=== PATIENT | male | born 1980 | race Caucasian/White ===

== ENCOUNTER 2017-10-25 20:31 | Emergency (ER) | payer MEDICAID, SELFPAY ==
[2017-10-25 20:31] VITALS: BP 151/101; PULSE 70; RESP 15; TEMP 36.4; BMI 43.6
--- NOTE | 2017-10-25 22:30 | ED.VISSUMM ---
- ER Visit Summary Date of Service: 10/25/17 Chief Complaint: [] Left upper extremity contusion History of Present Illness: The patient is a 36 M [] planing of bruising/hematoma/contusion to the left upper extremity. Patient reports mild discomfort to the left proximal forearm. Denies bony tenderness. He is unaware of how he potentially injured his upper extremity. He reports he is here because his family encouraged him to come for evaluation. Past medical history of schizophrenia and diabetes. Physical Examination: [] Left proximal lateral forearm contusion/hematoma. No significant tenderness on palpation. No bony tenderness to the left upper extremity. Neurovascularly intact distally. Test Results: [] None. Emergency Department Course and Treatment: [] Patient given prescription for ibuprofen and given a single dose of ibuprofen in the emergency department. No diagnostic imaging was warranted for this very benign presentation. Treatment Plan: [] Follow-up with PCP. Disposition: [] Discharge, stable. Impression: [] Left upper extremity contusion This note was generated with [employer] dictation software. It may contain incorrect words, spelling, and punctuation that were not noted in review of the chart prior to signing ED Disposition - Plan for ED Patient: Chief Complaint: Upper Extremity Injury Referrals: Miri Martin MD [Primary Care Provider] -
--- NOTE | 2017-10-25 22:32 | ED.DEP ---
ED Disposition - Plan for ED Patient: Disposition: Home or Assisted Living Chief Complaint: Upper Extremity Injury Instructions: ED Contusion Upper Ext Prescriptions: Ibuprofen 800 mg PO TID #20 tab Referrals: Miri Martin MD [Primary Care Provider] -
[2017-10-25 22:40] VITALS: BP 145/80; PULSE 75; RESP 14; O2SAT 99
[2017-10-25] MEDS: Ibuprofen 400 MG Tablet 800 MG PO (22:45)
== END 2017-10-25 22:46 | disposition home or self-care (01) ==
PROVIDERS: Emergency Provider Emergency Medicine; Family Provider Family Medicine; PCP Family Medicine
DX: S50.12XA Contusion of left forearm, initial encounter (principal); X58.XXXA Exposure to other specified factors, initial encounter; Y93.9 Activity, unspecified; Y92.9 Unspecified place or not applicable; E66.9 Obesity, unspecified; E11.9 Type 2 diabetes mellitus without complications; I10 Essential (primary) hypertension; F20.9 Schizophrenia, unspecified; Z90.49 Acquired absence of other specified parts of digestive tract; Z79.84 Long term (current) use of oral hypoglycemic drugs; Z79.899 Other long term (current) drug therapy
CPT/HCPCS: 99282

== ENCOUNTER 2021-01-31 09:28 | Observation (INO) | payer MEDICAID, SELFPAY ==
[2021-01-31] VITALS (17 sets, daily range): BP systolic 151–191; BP diastolic 92–117; PULSE 64–86; RESP 17–18; TEMP 36.4–36.8; O2SAT 94–97; BMI 38.5; BMI 37.9
--- NOTE | 2021-01-31 09:41 | RAD_ITS ---
STUDY: X-RAY CHEST REASON FOR EXAM: Male, 40 years old. Chest pain TECHNIQUE: Single AP portable view of the chest. COMPARISON: Comparison is made with prior study dated 10/15/2015. FINDINGS: EKG electrodes are seen. The lungs are clear and expanded. There is no demonstrated pleural abnormality. Normal size heart. Normal mediastinum and karlos. Normal visualized pulmonary arteries. Normal visualized aortic arch and descending thoracic aorta. Normal visualized thoracic spine. Normal visualized ribs, clavicles, and shoulders. There is no demonstrated abnormality of the visualized soft tissue structures of the upper abdomen. RAD/Chest 1 View (Portable) IMPRESSION: Normal x-ray examination of the chest. Electronically Signed: Christian Martinez MD at 10:34 EDT , Service support ,
--- NOTE | 2021-01-31 09:41 | EKG12_ITS ---
Test Reason : CP Blood Pressure : / mmHG Vent. Rate : 069 BPM Atrial Rate : 069 BPM P-R Int : 172 ms QRS Dur : 082 ms QT Int : 402 ms P-R-T Axes : 042 -09 047 degrees QTc Int : 430 ms Normal sinus rhythm Normal ECG Confirmed by HELENA LUNA, KATIANA ([id number]), avid editor GAURAV LAZAR ([id number]) on 02/05/2021 2:16:27 PM Referred By: DARLIN Confirmed By:KATIANA MALIK MD
--- NOTE | 2021-01-31 09:42 | EDS_ITS ---
HPI History of Present Illness Chief Complaint: Chest Pain Informant: patient Onset/Context/Timing Onset: Days (4) Activity at onset: gradual Timing: Waxes and wanes Quality: Positive for Sharp (and nonpleuritic, nonradiating) Location: Substernal Current Severity: Moderate Maximum Severity: Moderate Worsened By: Eating; Not Worsened By Exertion, Movement of Arm, Movement of Torso, Palpation, Breathing and Coughing Relieved By: - (getting up and around and doing things; hasn't tried any medications) Associated Symptoms: Negative for Nausea, Vomiting, Diaphoresis, Dyspnea, Cough, Fever, Lightheadedness and Palpitations Narrative Narrative: 40-year-old with a history of hypertension for which he takes his medication as prescribed presenting with chest discomfort for the past 4 days. He states it has gone away at one point, yesterday, but for the most part it has been present. He woke up with it fairly severe this morning and it has been present ever since, for several hours. he is having a hard time finishing a meal, No other associated symptoms except he states when asked details about this he states that mcc through a meal the discomfort gets worse and he develops a poor appetite and stops. CVD Risk Factors: Positive for Hypertension and Family History 1' </=55 (Brother in 40s unknown exactly but he thinks heart related); Negative for Diabetes, Hypercholesterolemia and Smoking PE Risk Factors: Negative for Recent Travel/Surgery, Recent Immobilization, Prior DVT or PE, Cancer and OCP + Smoking + >/=35 PFSH PFSH Medical History Hypertension Home Medications lisinopril-hydrochlorothiazide [Zestoretic] 1 tab PO BID 10/24/16 [History Last Taken 03/14/17 09:00] metformin 1,000 mg PO BID #60 tab 03/15/17 [Rx Last Taken Unknown] ibuprofen 800 mg PO TID #20 tab 10/25/17 [Rx Last Taken Unknown] Allergy/AdvReac Type Severity Reaction Status Date / Time No Known Allergies Allergy Verified 01/31/21 09:29 Family History (Updated 01/31/21 @ 09:[address] Joey Encarnacion MD) Brother CAD (coronary artery disease) Surgical History History of cholecystectomy Social History Smoking Status: Never smoker ROS ROS ED Constitutional Constitutional ED: Denies chills or fever(s) Eyes Eyes: Denies change in vision or diplopia ENT ENT ED: Denies rhinorrhea or sore throat Cardiovascular Cardiovascular: Reports chest pain; Denies palpitations Respiratory/Chest Respiratory/Chest: Denies cough or dyspnea Gastrointestinal Gastrointestinal: Denies abdominal pain, diarrhea, nausea or vomiting Genitourinary Genitourinary ED: Denies dysuria or hematuria Musculoskeletal Musculoskeletal: Denies back pain or neck pain Integumentary Denies abscess or rash Neurologic Neurologic: Denies headache(s), paresthesias or weakness Psychiatric Psychiatric: Denies anxiety or suicidal thoughts EXAM Physical Exam Const Vital Signs: 01/31/21 09:29 01/31/21 09:42 Temperature 98.2 F Temperature Source Temporal Pulse Rate 67 Respiratory Rate 18 Respiratory Effort Normal Blood Pressure 191/110 H Blood Pressure Mean 137 Pulse Ox 97 97 Oxygen Delivery Method Room Air Room Air Positive well nourished, well developed and obese General Appearance ED: well developed and NAD Nutritional Appearance: obese HEENT Reports moist mucous membranes normocephalic and atraumatic Eyes PERRL and EOMs intact bilaterally Neck full ROM and supple Resp normal respiratory effort and clear to auscultation bilaterally Cardio regular rate, regular rhythm and no murmurs GI non-distended Auscultation: normoactive bowel sounds Palpation: soft and tender epigastric (Mild. No other areas of tenderness.) Back/Spine no CVA tenderness General Back: other FROM Extremity normal to inspection General Extremety ED: Negative for edema, pulses abnormal or tenderness General Extremity: Negative for edema or pulses abnormal Neuro oriented x3, CN's II-XII intact bilaterally and no sensory deficits noted Sensorium / Orientation: awake and alert Motor Exam: strength 5/5 throughout Psych mental status grossly normal Mood & Affect: anxious Skin no rashes or lesions noted and no wounds MDM MDM MDM Narrative Medical decision making narrative: This discomfort seems more GI in etiology so initially he was given a GI cocktail. It did not help his discomfort, which then did worsen, it was present to a significant degree when he had EKG which is normal. His blood pressure did not go down actually went up a little bit to a systolic of 201. His troponin returned nonspecifically elevated, suggesting possible cardiac etiology. This could also be related to his blood pressure being very high. He was given nitroglycerin, aspirin, and plan is for admission to PCU for further treatment and evaluation. Lab Data Attestation: I reviewed the patient's lab results. Labs: Laboratory Results - last 24 hr 01/31/21 01/31/21 09:40 09:40 WBC 9.2 RBC 5.85 Hgb 17.4 H Hct 50.1 MCV 85.6 MCH 29.7 MCHC 34.7 RDW Std Deviation 40.3 RDW Coeff of Tobias 13.1 Plt Count 267 MPV 10.8 Immature Gran % (Auto) 0.500 Neut % (Auto) 58.8 Lymph % (Auto) 27.0 [place] % (Auto) 7.7 Eos % (Auto) 5.1 H Baso % (Auto) 0.9 Absolute Neuts (auto) 5.4 Absolute Lymphs (auto) 2.48 Nucleated RBC % 0 Sodium 139 Potassium 3.2 L Chloride 103 Carbon Dioxide 30.0 Anion Gap 6 BUN 10 Creatinine 0.72 Estim Creat Clear Calc 155.67 Est GFR (MDRD) Af Amer 156 Est GFR (MDRD) Non-Af 129 BUN/Creatinine Ratio 13.9 Glucose 177 H Calcium 9.0 Troponin I 0.142 H Radiography Chest X-Ray - ED: 1 View, Read by ED Physician, No Acute Disease and No Infiltrates Diagnostic Testing: Radiology Impression Chest X-Ray 01/31/21 09:41 IMPRESSION: Normal x-ray examination of the chest. Electronically Signed: Christian Martinez MD at 10:34 EDT , Service support , EKG Initial EKG: Attestation: I personally reviewed and interpreted this EKG as follows: Interpretation: Sinus Rhythm and No Acute Injury Pattern Comments: Normal EKG Discharge Plan Triage Chief Complaint: Chest Pain ED Provider: Joey Encarnacion Dx/Rx/DC Orders Clinical Impression: Chest pain, unspecified, Hypertensive urgency Prescriptions: No Action lisinopril-hydrochlorothiazide [Zestoretic] 1 EACH tablet 1 tab PO BID RF: 0 metformin 1,000 MG tablet 1,000 mg PO BID Qty: 60 RF: 0 ibuprofen 800 MG tablet 800 mg PO TID Qty: 20 RF: 0 Primary Care Provider: Conner Rogel NP Referrals: Conner Rogel NP, CHIEF STRATEGY OFFICER-C [Primary Care Provider] - Disposition Disposition: Acute [facility]
[2021-01-31 09:51] LABS: Absolute Lymphocyte Count 2.48 X10^3/uL (0.83-4.51); Absolute Neutrophil Count 5.4 X10^3/uL (2.0-7.7); Basophil# 0.08 X10^3/uL; Basophil% 0.9 % (0-1); Eosinophil# 0.47 X10^3/uL; Eosinophils% 5.1 % (0-5); Hematocrit 50.1 % (40-54); Hemoglobin 17.4 g/dL (13.0-16.5); Lymphocyte # 2.48 X10^3/ul (0.83-4.51); Mean Corp Hgb Conc 34.7 g/dL (32-36); Mean Corpuscular Hgb 29.7 pg (27.0-32.0); Mean Corpuscular Volume 85.6 fL (80-94); Mean Platelet Vol. 10.8 fl (6.2-12.0); Monocyte# 0.71 X10^3/uL; Monocyte% 7.7 % (0-10); NRBC Flagged by Analyzer 0 % (0-5); Neutrophil # 5.39 X10^3/uL (2.7-7.7); Neutrophil % 58.8 % (47-70); Platelet Count 267 K/mm3 (150-450); RBC Distribution Width CV 13.1 % (11.6-14.6); RBC Distribution Width SD 40.3 fl (35.1-43.9); Red Blood Count 5.85 M/mm3 (4.6-6.2); White Blood Count 9.2 K/mm3 (4.4-11.0)
[2021-01-31] MEDS: Mag Hydrox/Al Hydrox/Simeth 30 ML UDC PO (09:51)
[2021-01-31 10:07] LABS: Anion Gap 6 (5-15); BUN 10 mg/dL (7-18); BUN/Creat Ratio 13.9 RATIO (10-20); Chloride 103 mmol/L (98-107); Creatinine, Serum 0.72 mg/dL (0.70-1.30); EST Glomerular Filtration Rate 129 mL/min (>60); Est Glom Filt Rate - Afr Amer 156 mL/min (>60); Estimated Creatinine Clearance 155.67 ml/min; Glucose 177 mg/dL (74-106); Potassium 3.2 mmol/L (3.5-5.1); Sodium Level 139 mmol/L (136-145)
--- NOTE | 2021-01-31 10:46 | NURSING ---
DR WEAVER FOR DR CAMPO
[2021-01-31] MEDS: Aspirin 81 MG TAB.CHEW 324 MG PO (10:51)
--- NOTE | 2021-01-31 10:52 | NURSING ---
PCU OBS NAUMAH CP, ELEVATED TROP
--- NOTE | 2021-01-31 10:53 | HP.PCM.HOS_ITS ---
[facility] - General General Date of Admission: 01/31/21 Chief Complaint: Chest pain - 4 days HPI Narrative ANASTACIO MURILLO, is a 40 M who presents chest pain ongoing for 4 days. Patient described the chest pain is substernal, squeezing, not associated with diaphores is or dizziness. He denied any previous history of heart disease. He denied any change in his medication. He denied any orthopnea or dyspnea on exertion. [facility] Medical History Diabetes Hypertension Home Medications lisinopril-hydrochlorothiazide [Zestoretic] 1 tab PO BID 10/24/16 [History Last Taken 01/31/21 09:00] metformin 1,000 mg PO BID #60 tab 03/15/17 [Rx Last Taken 01/31/21 09:00] ibuprofen 800 mg PO TID PRN 01/31/21 [History Last Taken 01/29/21 09:00] pantoprazole [Protonix] 20 mg PO DAILY 01/31/21 [History Last Taken 01/30/21 09:00] Allergy/AdvReac Type Severity Reaction Status Date / Time No Known Allergies Allergy Verified 01/31/21 09:29 Family History Brother CAD (coronary artery disease) Surgical History History of cholecystectomy Social History (Updated 02/01/21 @ 07:[address] Lizy Norton MD) household members: spouse current occupational status: disabled Smoking Status: Former smoker alcohol intake: never substance use type: does not use ROS ROS Narrative Constitutional: Denies: Anorexia, Chills, Fever, Night Sweats, Weight Change Eyes: Denies: Blurred vision, Cataracts, Conjunctivae Inflammation, Pain, Redness, Vision Change HEENT: Denies: Difficulty Hearing, Difficulty Swallowing, Head Aches, Hearing Changes, Sinus Congestion, Sinus Drainage Cardiovascular:Admits to chest Pain, Denies Orthopnea, Palpitations, leg swelling Respiratory: Denies: Cough, Shortness of breath at rest, Sputum production Gastrointestinal: Denies: Abdominal Pain, Nausea, Vomiting Genitourinary: Denies: Dysuria Musculoskeletal: Denies: Joint Pain, Joint stiffness, Joint swelling, Joint Tenderness Skin: Denies: Rash, Wounds Neurological: Denies: Numbness, Tingling, Focal weakness Vital Signs Vital Signs Vital Signs: 01/31/21 09:29 01/31/21 09:42 Temperature 98.2 F Temperature Source Temporal Pulse Rate 67 Respiratory Rate 18 Respiratory Effort Normal Blood Pressure 191/110 H Blood Pressure Mean 137 Pulse Ox 97 97 Oxygen Delivery Method Room Air Room Air Physical Exam Narrative General: Alert, Oriented x3, Cooperative, No apparent distress, Well developed HEENT: Atraumatic Oral: Moist Mucosa Neck: Supple Lungs: Clear to auscultation Cardiovascular: HS I+II, regular, no murmurs Abdomen: Bowel Sounds Present, Soft, Non Tender Extremities: No edema Skin: No rashes, No breakdown Neurological: Grossly intact Psych/Mental Status: Appropriate Lab / Micro Data Result Diagrams: 02/01/21 06:15 01/31/21 09:40 Labs: Laboratory Results - last 24 hr 01/31/21 01/31/21 09:40 09:40 WBC 9.2 RBC 5.85 Hgb 17.4 H Hct 50.1 MCV 85.6 MCH 29.7 MCHC 34.7 RDW Std Deviation 40.3 RDW Coeff of Tobias 13.1 Plt Count 267 MPV 10.8 Immature Gran % (Auto) 0.500 Neut % (Auto) 58.8 Lymph % (Auto) 27.0 Ness % (Auto) 7.7 Eos % (Auto) 5.1 H Baso % (Auto) 0.9 Absolute Neuts (auto) 5.4 Absolute Lymphs (auto) 2.48 Nucleated RBC % 0 Sodium 139 Potassium 3.2 L Chloride 103 Carbon Dioxide 30.0 Anion Gap 6 BUN 10 Creatinine 0.72 Estim Creat Clear Calc 155.67 Est GFR (MDRD) Af Amer 156 Est GFR (MDRD) Non-Af 129 BUN/Creatinine Ratio 13.9 Glucose 177 H Calcium 9.0 Troponin I 0.142 H Radiology Impression Chest X-Ray 01/31/21 09:41 IMPRESSION: Normal x-ray examination of the chest. Electronically Signed: Christian Martinez MD at 10:34 EDT , Service support , Assessment & Plan Assessment/Plan (1) Chest pain: QUALIFIERS: Chest pain type: precordial chest pain Qualified Code(s): R07.2 - Precordial pain (2) Hypertension: QUALIFIERS: Hypertension type: essential hypertension Qualified Code(s): I10 - Essential (primary) hypertension (3) Diabetes: QUALIFIERS: Diabetes mellitus type: type 2 Diabetes mellitus [facility] insulin use: without long term care phlebotomist use Diabetes mellitus complication status: with other specified complication Qualified Code(s): E11.69 - Type 2 diabetes mellitus with other specified complication PLAN: 1. Acute chest pain, atypical, in a patient with multiple comorbidities including obesity, hypertension, type II DM Admitting EKG shows no acute ST-T changes. Troponins elevated at 0.142 We will admit to PCU, trend troponins, 2D echo, stress test in a.m. Continue aspirin, statin 2. Hypertension, uncontrolled, continue home medication with hydralazine as needed 3. Type II DM, on Metformin, continue Metformin, will also add insulin sliding s janneth with blood glucose checks 4. Rest of his chronic medical problems including schizophrenia, obesity, GERD?stable Visit Charges OBSV E&M: 54681 Initial observation care L2
[2021-01-31] MEDS: Nitroglycerin SL (ED/IMG/CATH) 0.4 MG TABLET SL ×3 (10:55→11:05)
[2021-01-31] MEDS: Morphine 4 MG/ML Syringe IV ×2 (11:19→17:56)
--- NOTE | 2021-01-31 12:56 | ECHOD_ITS ---
Reason For Study: CHEST PAIN Procedure This was a 2D Doppler, Color Flow transthoracic echocardiogram. The study was technically difficult. Exam performed portable in patient room. Left Ventricle Normal LV size. Left ventricular systolic function is normal. The estimated ejection fraction is 65 %. Transmitral doppler flow suggestive of impaired relaxation of left ventricle. No regional wall motion abnormalities noted. Right Ventricle Normal RV size. Normal systolic function. Atria Normal left atrium. Normal right atrium. No doppler evidence for ASD. Mitral Valve There is no mitral annular calcification. Normal mitral valve. Trivial mitral valve insufficiency. Tricuspid Valve Normal tricuspid valve. Trivial tricuspid valve insufficiency. Unable to estimate RV systolic pressure/pulmonary artery pressure due to technically difficult study. Aortic Valve Trisinus/trileaflet aortic valve. Normal aortic valve. Pulmonic Valve The pulmonic valve is not well visualized. Great Vessels Normal sized aortic root. Pericardium/Pleural No pericardial effusion. MMode/2D Measurements & Calculations LVIDd: 4.6 cm IVSd: 1.3 cm Ao root diam: 3.5 cm LVIDs: 3.4 cm LVPWd: 1.3 cm RVDd: 3.6 cm FS: 27.5 % LAV(MOD-bp): 55.4 ml LA A4 area: 18.9 cm2 LA dimension(2D): 3.9 cm LAV(MOD-bp) Indexed: 22.1 ml/m2 LAV(MOD-sp2): 51.3 ml LAV(MOD-sp4): 54.4 ml RA A4 area: 13.7 cm2 Time Measurements MV dec time: 0.26 sec Doppler Measurements & Calculations MV E max shade: 91.8 cm/sec Lat Peak E' Shade: 11.2 cm/sec Med Peak E' Shade: 7.8 cm/sec MV A max shade: 105.0 cm/sec E/E' lat: 8.2 E/E' med: 11.8 MV E/A: 0.87 Ao V2 max: 145.9 cm/sec LV V1 max: 106.1 cm/sec PA V2 max: 126.5 cm/sec Ao max P.5 mmHg LV V1 max P.5 mmHg ECHO/Echo Complete Interpretation Summary The study was technically difficult. Left ventricular systolic function is normal. The estimated ejection fraction is 65 %. Trivial mitral valve insufficiency. Trivial tricuspid valve insufficiency. Unable to estimate RV systolic pressure/pulmonary artery pressure due to techni iris difficult study. Transmitral doppler flow suggestive of impaired relaxation of left ventricle Ordering Physician: Lizy Norton Referring Physician: Conner Rogel Performed By: Angeles Cobos, HAMLET, RVT
[2021-01-31] MEDS: 0.9% Saline Lock 10 ML Syringe IV (17:56)
[2021-01-31] MEDS: hydrALAZINE 20 MG/ML Vial 5 MG IV (18:21)
--- NOTE | 2021-01-31 20:45 | NURSING ---
pt does not know the dosage zestoretic. He called home to find out but they could not find the bottle. Pt said he fills it at [facility]. [facility] [place] but they were closed. brian supervisor broadloom notified of situation. She said would put orders in when computer come up.
[2021-01-31] MEDS: Acetaminophen 325 MG Tablet 650 MG PO (22:00)
[2021-02-01] VITALS (8 sets, daily range): BP systolic 135–172; BP diastolic 83–110; PULSE 71–102; RESP 16–18; TEMP 36.6–36.9; O2SAT 96–98
[2021-02-01] MEDS: Labetalol (Prefilled) 20 MG/4 ML 10 MG IV (00:08)
[2021-02-01] MEDS: Potassium Chloride Oral Tablet 20 MEQ 40 MEQ PO (00:08)
[2021-02-01] MEDS: 0.9% Saline Lock 10 ML Syringe IV (00:09)
[2021-02-01 00:21] LABS: Bedside Glucose 134 mg/dL (70-110)
[2021-02-01] MEDS: Aspirin 81 MG TAB.CHEW PO (05:22)
[2021-02-01] MEDS: Pantoprazole Sodium 20 MG Tablet PO (05:22)
[2021-02-01 06:30] LABS: Bedside Glucose 137 mg/dL (70-110)
[2021-02-01 06:32] LABS: Absolute Lymphocyte Count 2.79 X10^3/uL (0.83-4.51); Absolute Neutrophil Count 5.6 X10^3/uL (2.0-7.7); Eosinophil# 0.37 X10^3/uL; Eosinophils% 3.8 % (0-5); Hematocrit 44.4 % (40-54); Hemoglobin 15.1 g/dL (13.0-16.5); Lymphocyte # 2.79 X10^3/ul (0.83-4.51); Lymphocyte % 28.5 % (19-41); Mean Corpuscular Hgb 28.9 pg (27.0-32.0); Mean Corpuscular Volume 85.1 fL (80-94); Mean Platelet Vol. 10.7 fl (6.2-12.0); Monocyte# 0.88 X10^3/uL; NRBC Flagged by Analyzer 0 % (0-5); Neutrophil # 5.61 X10^3/uL (2.7-7.7); Neutrophil % 57.2 % (47-70); Platelet Count 255 K/mm3 (150-450); RBC Distribution Width SD 40.2 fl (35.1-43.9); Red Blood Count 5.22 M/mm3 (4.6-6.2); White Blood Count 9.8 K/mm3 (4.4-11.0)
[2021-02-01 07:19] LABS: AST(SGOT) 18 U/L (15-37); Alanine Aminotransfer ALT/SGPT 35 U/L (16-61); Albumin, Serum 3.4 g/dL (3.2-5.0); Alkaline Phosphatase 60 U/L (45-117); Anion Gap 7 (5-15); BUN 11 mg/dL (7-18); BUN/Creat Ratio 16.8 RATIO (10-20); Calcium,Total 8.4 mg/dL (8.5-10.1); Chloride 105 mmol/L (98-107); Creatinine, Serum 0.65 mg/dL (0.70-1.30); EST Glomerular Filtration Rate 145 mL/min (>60); Est Glom Filt Rate - Afr Amer 175 mL/min (>60); Estimated Creatinine Clearance 172.43 ml/min; Globulin 3.3 g/dL (2.2-4.2); Glucose 141 mg/dL (74-106); Potassium 3.2 mmol/L (3.5-5.1); Protein, Total 6.7 g/dL (6.4-8.2); Sodium Level 140 mmol/L (136-145)
[2021-02-01 08:03] LABS: Magnesium 2.1 mg/dL (1.6-2.6)
--- NOTE | 2021-02-01 10:30 | NURSING ---
Prior to beginning stress test, Dr. Pinto was notified of the patients current vital signs, lab results, signs and symptoms, including sharp midsternal chest pain rated [address] Pinto did then see the patient and speak with him, and also reviewed his EKG. Dr. Pinto stated that it was ok to proceed with the Lexiscan stress test. After completion of the stress test, Dr. Pinto notified of the patients vital signs, symptoms, and he reviewed his EKG's from the stress test.
[2021-02-01] MEDS: Lisinopril 20 MG Tablet PO (11:21)
[2021-02-01 11:31] LABS: Bedside Glucose 163 mg/dL (70-110)
[2021-02-01] MEDS: metFORMIN HCl 1,000 MG Tablet 1000 MG PO ×2 (12:28→16:29)
[2021-02-01 14:30] LABS: Anion Gap 3 (5-15); BUN 10 mg/dL (7-18); BUN/Creat Ratio 16.6 RATIO (10-20); Calcium,Total 8.4 mg/dL (8.5-10.1); Chloride 108 mmol/L (98-107); EST Glomerular Filtration Rate 159 mL/min (>60); Est Glom Filt Rate - Afr Amer 192 mL/min (>60); Glucose 147 mg/dL (74-106); Potassium 3.4 mmol/L (3.5-5.1); Sodium Level 139 mmol/L (136-145)
--- NOTE | 2021-02-01 16:29 | STRESSREP ---
Stress Test Report Pharmacologic myocardial perfusion stress test. Indication: Patient has symptoms of chest pain, hypertension, obesity, family history of CAD and diabetes Patient has a lumbar disc disease. Stress protocol: This is a Lexiscan sestamibi myocardial perfusion study Myocardial perfusion protocol. [15 mCi ]of Technetium 99m Sestamibi was injected at rest. [ 0.4 mg ]of Regadenoson was infused per usual protocol peak infusion[45 mCi ]of Technetium 99m sestamibi was injected. Stress images were obtained stress and rest images were reconstructed and compared in the short axis vertical and horizontal long axis. Gated images were also obtained. Resting blood pressure 152/100 oh 4 mmHg, resting heart rate 69 bpm At maximal stress blood pressure 180/100 80 mmHg with a heart rate of 83 bpm. Resting electrocardiogram revealed normal sinus rhythm, following Lexiscan injection and during recovery no significant ST?T abnormality noted and no significant ventricular dysrhythmia. Perfusion SPECT analysis: Review of the images demonstrate normal uptake of sestamibi at rest, post stress images demonstrate similar uptake of sestamibi to the resting images, homogeneous tracer uptake With no evidence of reversible myocardial ischemia. Inferior attenuation artifact is noted Gated SPECT analysis: The gated ejection fraction is [65 %]. Normal LV wall motion and normal LV thickness. Conclusion: Negative Lexiscan sestamibi myocardial perfusion study for reversible myocardial ischemia Normal LV systolic function Inferior attenuation artifact noted of no clinical significance. Betty Pinto MD,FACC,[facility]
[2021-02-01 16:50] LABS: Bedside Glucose 151 mg/dL (70-110)
--- NOTE | 2021-02-01 18:11 | PN.HOSP_ITS ---
Subjective Subjective Patient was seen and examined. His chest pain is improved. Stress test was negative. Blood pressure is uncontrolled. Objective Data Objective Data Vital Signs: Vital Signs Temp Pulse Resp BP Pulse Ox 97.8 F 81 18 142/85 H 97 02/01/21 17:15 02/01/21 17:15 02/01/21 17:15 02/01/21 17:15 02/01/21 17:15 Oxygen Delivery Method Room Air Weight: 130.4 kg Body Mass Index (BMI) 37.9 Intake & Output: Intake and Output for Last 24 Hours 01/30/21 01/31/21 02/01/21 23:59 23:59 23:59 Intake Total 360 / 800 500 / 500 Balance 360 / 800 500 / 500 Lab / Micro Data Result Diagrams: 02/01/21 06:15 02/01/21 14:01 Labs: Laboratory Results - last 24 hr 01/31/21 02/01/21 02/01/21 23:41 06:15 06:15 WBC 9.8 RBC 5.22 Hgb 15.1 Hct 44.4 MCV 85.1 MCH 28.9 MCHC 34.0 RDW Std Deviation 40.2 RDW Coeff of Tobias 13.0 Plt Count 255 MPV 10.7 Immature Gran % (Auto) 0.500 Neut % (Auto) 57.2 Lymph % (Auto) 28.5 [place] % (Auto) 9.0 Eos % (Auto) 3.8 Baso % (Auto) 1.0 Absolute Neuts (auto) 5.6 Absolute Lymphs (auto) 2.79 Nucleated RBC % 0 Sodium 140 Potassium 3.2 L Chloride 105 Carbon Dioxide 28.0 Anion Gap 7 BUN 11 Creatinine 0.65 L Estim Creat Clear Calc 172.43 Est GFR (MDRD) Af Amer 175 Est GFR (MDRD) Non-Af 145 BUN/Creatinine Ratio 16.8 Glucose 141 H Calcium 8.4 L Magnesium Total Bilirubin 1.00 AST 18 ALT 35 Alkaline Phosphatase 60 Total Protein 6.7 Albumin 3.4 Globulin 3.3 Albumin/Globulin Ratio 1.0 POC Glucose 134 H 02/01/21 02/01/21 02/01/21 06:15 06:24 11:20 WBC RBC Hgb Hct MCV MCH MCHC RDW Std Deviation RDW Coeff of Tobias Plt Count MPV Immature Gran % (Auto) Neut % (Auto) Lymph % (Auto) [place] % (Auto) Eos % (Auto) Baso % (Auto) Absolute Neuts (auto) Absolute Lymphs (auto) Nucleated RBC % Sodium Potassium Chloride Carbon Dioxide Anion Gap BUN Creatinine Estim Creat Clear Calc Est GFR (MDRD) Af Amer Est GFR (MDRD) Non-Af BUN/Creatinine Ratio Glucose Calcium Magnesium 2.1 Total Bilirubin AST ALT Alkaline Phosphatase Total Protein Albumin Globulin Albumin/Globulin Ratio POC Glucose 137 H 163 H 02/01/21 02/01/21 14:01 16:27 WBC RBC Hgb Hct MCV MCH MCHC RDW Std Deviation RDW Coeff of Tobias Plt Count MPV Immature Gran % (Auto) Neut % (Auto) Lymph % (Auto) [place] % (Auto) Eos % (Auto) Baso % (Auto) Absolute Neuts (auto) Absolute Lymphs (auto) Nucleated RBC % Sodium 139 Potassium 3.4 L Chloride 108 H Carbon Dioxide 28.0 Anion Gap 3 L BUN 10 Creatinine 0.60 L Estim Creat Clear Calc 186.80 Est GFR (MDRD) Af Amer 192 Est GFR (MDRD) Non-Af 159 BUN/Creatinine Ratio 16.6 Glucose 147 H Calcium 8.4 L Magnesium Total Bilirubin AST ALT Alkaline Phosphatase Total Protein Albumin Globulin Albumin/Globulin Ratio POC Glucose 151 H Physical Exam Narrative General: Alert, Oriented x3, Cooperative, No apparent distress, Well developed HEENT: Atraumatic Oral: Moist Mucosa Neck: Supple Lungs: Clear to auscultation Cardiovascular: HS I+II, regular, no murmurs Abdomen: Bowel Sounds Present, Soft, Non Tender Extremities: No edema Skin: No rashes, No breakdown Neurological: Grossly intact Psych/Mental Status: Appropriate Assessment & Plan Assessment/Plan (1) Chest pain: QUALIFIERS: Chest pain type: precordial chest pain Qualified Code(s): R07.2 - Precordial pain (2) Hypertension: QUALIFIERS: Hypertension type: essential hypertension Qualified Code(s): I10 - Essential (primary) hypertension (3) Diabetes: QUALIFIERS: Diabetes mellitus type: type 2 Diabetes mellitus complication status: with other specified complication Diabetes mellitus long distance operator insulin use: without assisted use Qualified Code(s): E11.69 - Type 2 diabetes mellitus with other specified complication (4) Hypertensive urgency: (5) Hypokalemia: PLAN: 1. Acute chest pain, atypical, ACS ruled out, stress test is negative Continue aspirin, statin 2. Hypertensive urgency/uncontrolled hypertension, POA, Blood pressure remains uncontrolled still Continue lisinopril 20 mg daily, add amlodipine 5 mg daily 3. Hypokalemia, replace, recheck in a.m. 4. Type II DM, on Metformin, continue Metformin, will also add insulin sliding scale with blood glucose checks 5. Rest of his chronic medical problems including schizophrenia, obesity, GERD?stable Visit Charges OBSV E&M: 01132 Subsequent observation care L1
[2021-02-01] MEDS: Potassium Chloride Oral Tablet 20 MEQ 60 MEQ PO (18:38)
[2021-02-01] MEDS: amLODIPine 5 MG Tablet PO (18:38)
[2021-02-01] MEDS: Loperamide 2 MG Capsule 4 MG PO (20:26)
[2021-02-01] MEDS: Pantoprazole Sodium 40 MG Tablet PO (22:05)
[2021-02-01] MEDS: Insulin Lispro 100 UNIT/ML INSULN.PEN SC (22:11)
[2021-02-01 22:41] LABS: Bedside Glucose 173 mg/dL (70-110)
[2021-02-02 04:02] VITALS: BP 105/58; PULSE 69; RESP 16; TEMP 36.4; O2SAT 96
[2021-02-02 07:00] VITALS: PULSE 75
[2021-02-02 07:07] LABS: ALB/GLOB Ratio 0.9 RATIO (0.9-2.4); AST(SGOT) 18 U/L (15-37); Alanine Aminotransfer ALT/SGPT 33 U/L (16-61); Albumin, Serum 3.4 g/dL (3.2-5.0); Alkaline Phosphatase 57 U/L (45-117); Anion Gap 4 (5-15); BUN 9 mg/dL (7-18); BUN/Creat Ratio 15.3 RATIO (10-20); Calcium,Total 8.7 mg/dL (8.5-10.1); Chloride 110 mmol/L (98-107); Creatinine, Serum 0.59 mg/dL (0.70-1.30); EST Glomerular Filtration Rate 163 mL/min (>60); Est Glom Filt Rate - Afr Amer 197 mL/min (>60); Estimated Creatinine Clearance 189.97 ml/min; Globulin 3.6 g/dL (2.2-4.2); Glucose 114 mg/dL (74-106); Potassium 3.7 mmol/L (3.5-5.1); Sodium Level 140 mmol/L (136-145)
[2021-02-02 07:25] LABS: Bedside Glucose 116 mg/dL (70-110)
[2021-02-02] MEDS: metFORMIN HCl 1,000 MG Tablet 1000 MG PO (09:03)
[2021-02-02] MEDS: Pantoprazole Sodium 40 MG Tablet PO (09:03)
[2021-02-02] MEDS: amLODIPine 5 MG Tablet PO (09:03)
[2021-02-02] MEDS: Aspirin 81 MG TAB.CHEW PO (09:04)
[2021-02-02] MEDS: Lisinopril 20 MG Tablet PO (09:04)
[2021-02-02 09:06] VITALS: BP 153/94; PULSE 82; RESP 18; TEMP 36.7; O2SAT 98
[2021-02-02 11:00] VITALS: PULSE 87
--- NOTE | 2021-02-02 11:33 | DS.PCM_ITS ---
Providers Date of Admission: 01/31/21 Primary Care Physician: JEB Romero Reason For Visit: CHEST PAIN, ELEVATED BP Diagnosis Discharge Diagnosis (1) Chest pain: Status: Resolved Code(s): R07.9 - Chest pain, unspecified Qualifiers: Chest pain type: precordial chest pain Qualified Code(s): R07.2 - Precordial pain (2) Hypertension: Status: Chronic Code(s): I10 - Essential (primary) hypertension Qualifiers: Hypertension type: essential hypertension Qualified Code(s): I10 - Essential (primary) hypertension (3) Diabetes: Status: Chronic Code(s): E11.9 - Type 2 diabetes mellitus without complications Qualifiers: Diabetes mellitus complication status: with other specified complication Diabetes mellitus group home insulin use: without predatory animal exterminator use Diabetes mellitus type: type 2 Qualified Code(s): E11.69 - Type 2 diabetes mellitus with other specified complication (4) Hypertensive urgency: Status: Resolved Code(s): I16.0 - Hypertensive urgency (5) Hypokalemia: Status: Resolved Code(s): E87.6 - Hypokalemia Medications at Discharge Home Medications metformin 1,000 mg PO BID #60 tab 03/15/17 amlodipine 5 mg PO DAILY 30 Days #30 tab 02/02/21 aspirin 81 mg PO DAILY #30 tab 02/02/21 lisinopril 20 mg PO DAILY 30 Days #30 tab 02/02/21 pantoprazole 40 mg PO BID 30 Days #60 tab 02/02/21 Hospital Course Operations None Procedures 2-D Echocardiogram and Nuclear stress test Summary of Care Provided Minutes Spent on Discharge: 45 Hospital Course: 40-year-old male with past medical history of schizophrenia, hypertension, type II DM who presents with chest pain that is described as substernal, squeezing ongoing for about 4 days. Patient denied any diaphoresis or palpitations with it. His admitting EKG showed no acute ST changes. Admitting blood pressure was elevated. He was admitted to the telemetry floor and monitored. Patient had blood pressure issues during this hospital stay resulting in changes in his medications. He was started on lisinopril and amlodipine. He previously was on lisinopril but was not taking it. He had hypokalemia during the hospital stay that was replaced. His potassium was normal at discharge. 2D echo showed an EF of 65%. He underwent a nuclear stress test that was unremarkable. He was counseled on low-salt diet in compliance with medication. He will follow-up with his primary care doctor within a week for repeat blood work as well as follow-up. Physical Exam Narrative General: Alert, Oriented x3, Cooperative, No apparent distress, Well developed HEENT: Atraumatic Oral: Moist Mucosa Neck: Supple Lungs: Clear to auscultation Cardiovascular: HS I+II, regular, no murmurs Abdomen: Bowel Sounds Present, Soft, Non Tender Extremities: No edema Skin: No rashes, No breakdown Neurological: Grossly intact Psych/Mental Status: Appropriate ABG / Lab / Microbiology Data Result Diagrams: 02/01/21 06:15 02/02/21 05:49 Laboratory: Laboratory Results - last 24 hr 02/01/21 02/01/21 02/01/21 14:01 16:27 22:08 Sodium 139 Potassium 3.4 L Chloride 108 H Carbon Dioxide 28.0 Anion Gap 3 L BUN 10 Creatinine 0.60 L Estim Creat Clear Calc 186.80 Est GFR (MDRD) Af Amer 192 Est GFR (MDRD) Non-Af 159 BUN/Creatinine Ratio 16.6 Glucose 147 H Calcium 8.4 L Total Bilirubin AST ALT Alkaline Phosphatase Total Protein Albumin Globulin Albumin/Globulin Ratio POC Glucose 151 H 173 H 02/02/21 02/02/21 05:49 07:02 Sodium 140 Potassium 3.7 Chloride 110 H Carbon Dioxide 26.0 Anion Gap 4 L BUN 9 Creatinine 0.59 L Estim Creat Clear Calc 189.97 Est GFR (MDRD) Af Amer 197 Est GFR (MDRD) Non-Af 163 BUN/Creatinine Ratio 15.3 Glucose 114 H Calcium 8.7 Total Bilirubin 0.80 AST 18 ALT 33 Alkaline Phosphatase 57 Total Protein 7.0 Albumin 3.4 Globulin 3.6 Albumin/Globulin Ratio 0.9 POC Glucose 116 H Microbiology: Microbiology 02/01/21 21:10 Enteric Bacteriology - Final Stool 02/01/21 21:10 C. difficile DNA Amplification - Final Interface Orders Microbiology 02/01/21 21:10 Stool Enteric Bacteriology - Final 02/01/21 21:10 Interface Orders C. difficile DNA Amplification - Final D/C Instructions Discharge Diet: Low fat / Low cholesterol and 2000 mg Sodium Diet Discharge Activity: Return to Normal Activity Meaningful Use Info Meaningful Use Diagnoses (Choose all that apply): None applicable Discharge Plan Admission Admit Date/Time: 01/31/21 10:51 Primary Reason for Your Visit: Chest pain, uncontrolled Hypertension Attending Provider: Lizy Norton Primary Care Provider: Conner Rogel NP Instructions Patient Instructions: ED Chest Pain, Noncardiac Additional Instructions / Restrictions: Continue to take all your medications as prescribed. Measure your blood pressure every day and keep a log of it. Follow-up with your primary care doctor within 1 to 2 weeks. Discharge Orders/Prescriptions Prescriptions: New lisinopril 20 mg Tablet 20 mg PO DAILY 30 Days Qty: 30 RF: 0 amlodipine 5 mg Tablet 5 mg PO DAILY 30 Days Qty: 30 RF: 0 pantoprazole 40 mg Tablet,Delayed Release (Dr/Ec) 40 mg PO BID 30 Days Qty: 60 RF: 0 aspirin 81 mg tablet,chewable 81 mg PO DAILY Qty: 30 RF: 0 Continued metformin 1,000 MG tablet 1,000 mg PO BID Qty: 60 RF: 0 Discontinued lisinopril-hydrochlorothiazide [Zestoretic] 1 EACH tablet 1 tab PO BID RF: 0 pantoprazole [Protonix] 20 mg Tablet,Delayed Release (Dr/Ec) 20 mg PO DAILY RF: 0 ibuprofen 800 MG tablet 800 mg PO TID PRN (Reason: Pain) RF: 0 Referrals / Follow Up: Conner Rogel NP, DENTAL HYGIENE INSTRUCTOR-C [Primary Care Provider] - Within 2 Weeks Disposition Disposition (needs filled in before D/C Order can be placed): Home, self care Visit Charges OBSV E&M: 31767 Observation care discharge
[2021-02-02] MEDS: Insulin Lispro 100 UNIT/ML INSULN.PEN SC (11:55)
[2021-02-02 12:01] LABS: Bedside Glucose 209 mg/dL (70-110)
--- NOTE | 2021-02-02 13:00 | PHA.DC.MC ---
Pharmacy Service has performed discharge medication reconciliation and counseling for this patient. 1. AMLODIPINE 5MG PO DAILY 2. ASPIRIN 81MG PO DAILY The patient's discharge medication list was reviewed for discrepancies and discrepancies were resolved. Patient prefers for medications to be filled at [facility]. This [facility] called [facility] and spoke to Elaina, they will transfer the medications from [facility]. Preferred pharmacy updated in chart. Patient updated and verbalized understanding. Home Medications metformin 1,000 mg PO BID #60 tab 03/15/17 amlodipine 5 mg PO DAILY 30 Days #30 tab 02/02/21 aspirin 81 mg PO DAILY #30 tab 02/02/21 lisinopril 20 mg PO DAILY 30 Days #30 tab 02/02/21 pantoprazole 40 mg PO BID 30 Days #60 tab 02/02/21 The patient was counseled on the following discharge medications and changes in medications for homegoing were reviewed. The Reason for Use, instructions for use, and potential side effects were reviewed for all new medications. The patient's questions regarding all of their medications were answered. The patient was able to verbally demonstrate an understanding of their discharge medications.
[2021-02-02 13:01] VITALS: BP 142/76; PULSE 73; RESP 18; TEMP 36.8; O2SAT 98
== END 2021-02-02 11:20 | disposition home or self-care (01) ==
LOC: ED 10:40 → PCU 11:17
PROVIDERS: Admitting Provider Internal Medicine; Emergency Provider Emergency Medicine; PCP Nurse Practitioner Primary Care; Visit Provider Internal Medicine
DX: R07.2 Precordial pain (principal); I10 Essential (primary) hypertension; E66.9 Obesity, unspecified; I16.0 Hypertensive urgency; E11.9 Type 2 diabetes mellitus without complications; Z79.84 Long term (current) use of oral hypoglycemic drugs; Z79.899 Other long term (current) drug therapy; Z87.891 Personal history of nicotine dependence; Z68.37 Body mass index [BMI] 37.0-37.9, adult; E87.6 Hypokalemia
CPT/HCPCS: 36415; 71045; 78452; 80048; 80053; 82962; 83735; 84484; 85025; 87493; 87506; 93005; 93017; 93306; 96374; 96375; 96376; 99218; 99285; A9500; A4216; G0378; J2785

== ENCOUNTER 2022-03-10 17:51 | Emergency (ER) | payer MEDICAID, SELFPAY ==
[2022-03-10 17:52] VITALS: BP 162/101; PULSE 104; RESP 18; TEMP 36.4; O2SAT 96; BMI 36.9
--- NOTE | 2022-03-10 18:01 | CT_ITS ---
STUDY: CT ABDOMEN AND PELVIS WITH CONTRAST REASON FOR EXAM: Male, 41 years old. hernia, vomiting, pain RADIATION DOSAGE (If Supplied By Facility): CTDIvol = ( 17.08 ) mGy, DLP = ( 1361.15 ) mGycm TECHNIQUE: Transaxial images were obtained from the dome of the diaphragm to the symphysis pubis without oral contrast. IV 100mL Isovue-370 was administered. Sagittal and coronal images were reconstructed. Individualized dose optimization techniques were used for this CT. COMPARISON: 03/22/2017 FINDINGS: The visualized lung bases are unremarkable. The visualized portions of the heart are within normal limits. Normal liver. There is non-visualization of the gallbladder, which may be secondary to either contraction or a prior cholecystectomy. Normal spleen. Normal pancreas. Normal bilateral adrenal glands. Normal right kidney. Normal left kidney. Normal visualized stomach. Normal small intestine. Normal colon. The appendix is visualized and appears normal. Normal abdominal aorta. Normal inferior vena cava. Normal retroperitoneum. Normal urinary bladder. Normal abdominal wall. Normal osseous structures. CT/Abdomen/Pelvis W IV Cont ONLY IMPRESSION: Normal enhanced CT of the abdomen and pelvis. Electronically Signed: Jem Mascorro MD at 19:37 EDT ,
[2022-03-10] MEDS: Ondansetron 4 MG/2 ML Vial IV (18:08)
[2022-03-10] MEDS: Morphine 4 MG/ML Syringe IV (18:08)
[2022-03-10 18:18] LABS: Absolute Lymphocyte Count 1.94 X10^3/uL (0.83-4.51); Absolute Neutrophil Count 8.2 X10^3/uL (2.0-7.7); Basophil# 0.07 X10^3/uL; Basophil% 0.6 % (0-1); Eosinophil# 0.16 X10^3/uL; Eosinophils% 1.4 % (0-5); Hematocrit 48.8 % (40-54); Hemoglobin 17.3 g/dL (13.0-16.5); Lymphocyte # 1.94 X10^3/ul (0.83-4.51); Lymphocyte % 17.4 % (19-41); Mean Corp Hgb Conc 35.5 g/dL (32-36); Mean Corpuscular Hgb 30.2 pg (27.0-32.0); Mean Corpuscular Volume 85.3 fL (80-94); Mean Platelet Vol. 11.3 fl (6.2-12.0); Monocyte# 0.75 X10^3/uL; Monocyte% 6.7 % (0-10); NRBC Flagged by Analyzer 0 % (0-5); Neutrophil % 73.5 % (47-70); Platelet Count 289 K/mm3 (150-450); RBC Distribution Width CV 12.7 % (11.6-14.6); Red Blood Count 5.72 M/mm3 (4.6-6.2); White Blood Count 11.2 K/mm3 (4.4-11.0)
[2022-03-10 18:40] LABS: AST(SGOT) 20 U/L (15-37); Alanine Aminotransfer ALT/SGPT 39 U/L (16-61); Albumin, Serum 3.9 g/dL (3.2-5.0); Alkaline Phosphatase 62 U/L (45-117); Anion Gap 8 (5-15); BUN 11 mg/dL (7-18); BUN/Creat Ratio 15.4 RATIO (10-20); Calcium,Total 9.4 mg/dL (8.5-10.1); Chloride 107 mmol/L (98-107); Creatinine, Serum 0.72 mg/dL (0.70-1.30); EST Glomerular Filtration Rate 129 mL/min (>60); Est Glom Filt Rate - Afr Amer 157 mL/min (>60); Estimated Creatinine Clearance 154.13 ml/min; Glucose 169 mg/dL (74-106); Lipase 50 U/L (73-393); Potassium 3.6 mmol/L (3.5-5.1); Protein, Total 7.9 g/dL (6.4-8.2); Sodium Level 141 mmol/L (136-145)
--- NOTE | 2022-03-10 20:27 | EX.ED.DYSGE1 ---
HPI History of Present Illness Chief Complaint: Abd Pain Informant: patient Onset/Context/Timing Onset: Today Context: Gradual Onset Timing: Continuous Quality: Stabbing Location: Periumbilical abdominal pain Maximum Severity: Severe Associated Symptoms Associated Symptoms: Vomiting Narrative Narrative: Patient presents with abdominal pain and vomiting. He is following up as an outpatient for a pyloromyotomy. No fevers. No bleeding. No other pains or symptoms. PFSH PFS Medical History Diabetes Hypertension Home Medications lisinopril 20 mg tablet 20 mg PO DAILY 30 days #30 tabs 02/02/21 [Rx Last Taken Unknown] pantoprazole 40 mg tablet,delayed release 40 mg PO BID 30 days #60 tabs 02/02/21 [Rx Last Taken Unknown] empagliflozin 25 mg tablet 25 mg PO DAILY 03/10/22 [History Last Taken Unknown] ondansetron 4 mg disintegrating tablet 4 mg PO Q8H PRN PRN Nausea #10 tabs 03/10/22 [Rx Last Taken Unknown] sitagliptin 100 mg tablet 100 mg PO DAILY 03/10/22 [History Last Taken Unknown] Allergy/AdvReac Type Severity Reaction Status Date / Time No Known Allergies Allergy Verified 03/10/22 17:52 Family History Brother CAD (coronary artery disease) Surgical History History of cholecystectomy Social History household members: spouse current occupational status: disabled Smoking Status: Former smoker alcohol intake: never substance use type: does not use ROS ROS ED Constitutional Constitutional ED: Denies chills or fever(s) Eyes Eyes: Denies blurry vision ENT ENT ED: Denies ear pain Cardiovascular Cardiovascular: Denies chest pain Respiratory/Chest Respiratory/Chest: Denies cough Gastrointestinal Gastrointestinal: Reports abdominal pain, nausea and vomiting Genitourinary Genitourinary ED: Denies dysuria Musculoskeletal Musculoskeletal: Denies arthralgias Integumentary Denies abscess Neurologic Neurologic: Denies headache(s) Psychiatric Psychiatric: Denies anxiety Endocrine Endocrinology: Denies cold intolerance Allergic/Immunologic Allergic/Immunologic ED: Denies mouth swelling EXAM Physical Exam Const Vital Signs: 03/10/22 17:52 Temperature 97.5 F L Temperature Source Temporal Pulse Rate 104 H Respiratory Rate 18 Blood Pressure 162/101 H Blood Pressure Mean 121 Pulse Ox 96 Oxygen Delivery Method Room Air Positive well nourished and well developed General Appearance ED: well developed HEENT Reports moist mucous membranes Negative for trauma Eyes EOMs intact bilaterally Resp normal respiratory effort Cardio regular rate and regular rhythm GI normal to inspection, nondistended, normoactive bowel sounds Back/Spine no CVA tenderness Neuro oriented x3 Psych mental status grossly normal Skin no rashes or lesions noted MDM MDM MDM Narrative Medical decision making narrative: Patient has abdominal pain with vomiting. Exam is fairly reassuring. He did have a white count of 11.2. Otherwise his labs were all fairly unremarkable. CT showed no acute abnormalities. It sounds like his pain is from vomiting. It sounds like abdominal wall pain. His work-up here is reassuring and he will be discharged for outpatient follow-up for his pyloromyotomy. Return for inability to tolerate anything by mouth, dehydration, worsening pain or symptoms. Discharge. Impression #1 abdominal pain Impression #2 vomiting Lab Data Attestation: I reviewed the patient's lab results. Labs: Laboratory Results - last 24 hr 03/10/22 03/10/22 18:00 18:00 WBC 11.2 H RBC 5.72 Hgb 17.3 H Hct 48.8 MCV 85.3 MCH 30.2 MCHC 35.5 RDW Std Deviation 39.0 RDW Coeff of Tobias 12.7 Plt Count 289 MPV 11.3 Immature Gran % (Auto) 0.400 Neut % (Auto) 73.5 H Lymph % (Auto) 17.4 L [place] % (Auto) 6.7 Eos % (Auto) 1.4 Baso % (Auto) 0.6 Absolute Neuts (auto) 8.2 H Absolute Lymphs (auto) 1.94 Nucleated RBC % 0 Sodium 141 Potassium 3.6 Chloride 107 Carbon Dioxide 26.0 Anion Gap 8 BUN 11 Creatinine 0.72 Estim Creat Clear Calc 154.13 Est GFR (MDRD) Af Amer 157 Est GFR (MDRD) Non-Af 129 BUN/Creatinine Ratio 15.4 Glucose 169 H Calcium 9.4 Total Bilirubin 0.80 AST 20 ALT 39 Alkaline Phosphatase 62 Total Protein 7.9 Albumin 3.9 Globulin 4.0 Albumin/Globulin Ratio 1.0 Lipase 50 L Radiography Diagnostic Testing: Clinical Impression(s) from Imaging Studies Abdomen/Pelvis CT 03/10/22 18:01 IMPRESSION: Normal enhanced CT of the abdomen and pelvis. Electronically Signed: Jem Mascorro MD at 19:37 EDT , Discharge Plan Triage Chief Complaint: Abd Pain ED Provider: Denys Alberto Dx/Rx/DC Orders Instructions: ED Abdominal Pain Unkn Cause Male... Prescriptions: New ondansetron 4 mg tablet,disintegrating 4 mg PO Q8H PRN PRN (Reason: Nausea) Qty: 10 0RF No Action lisinopril 20 mg Tablet 20 mg PO DAILY 30 Days Qty: 30 0RF pantoprazole 40 mg Tablet,Delayed Release (Dr/Ec) 40 mg PO BID 30 Days Qty: 60 0RF sitagliptin 100 mg Tablet 100 mg PO DAILY empagliflozin 25 mg Tablet 25 mg PO DAILY Primary Care Provider: Nasra Rice NP Referrals: Nasra Rice NP, CLOTHES SEPARATOR-C [Primary Care Provider] - Disposition Disposition: Home, Self Care
== END 2022-03-10 20:28 | disposition home or self-care (01) ==
PROVIDERS: Emergency Provider Emergency Medicine; PCP Clinical Nurse Specialist; Visit Provider Emergency Medicine
DX: R10.33 Periumbilical pain (principal); E11.9 Type 2 diabetes mellitus without complications; R11.10 Vomiting, unspecified; I10 Essential (primary) hypertension; Z79.84 Long term (current) use of oral hypoglycemic drugs; Z79.899 Other long term (current) drug therapy; Z87.891 Personal history of nicotine dependence
CPT/HCPCS: 74177; 80053; 83690; 85025; 96374; 96375; 99283; J7030; Q9967; A4216; J2405

== ENCOUNTER 2022-03-11 12:01 | Emergency (ER) | payer MEDICAID, SELFPAY ==
[2022-03-11 12:02] VITALS: PULSE 83; RESP 14; TEMP 36.5; O2SAT 95; BMI 36.9
[2022-03-11 12:22] VITALS: BP 174/112; PULSE 90
[2022-03-11 12:31] LABS: Bedside Glucose 242 mg/dL (74-106)
--- NOTE | 2022-03-11 12:58 | EDS_ITS ---
HPI History of Present Illness Chief Complaint: Nausea/Vomiting Narrative Narrative: 41-year-old male here for nausea vomiting. Patient has a past medical history of hypertension, schizophrenia, type 2 diabetes. the patient states he is got ongoing abdominal pain is worse than yesterday. States the pain is located in the mid abdomen, nonradiating, constant, without alleviating factors. Notes nonbloody nonbilious vomitus that is constant as well. Denies any chest pain. Last bowel was yesterday. No melena or hematochezia. Old chart reviewed: Recent ED evaluation yesterday for abdominal pain. Noted history of cholecystectomy Had a lab work-up that showed leukocytosis, CT scan was negative. He was discharged to follow-up with pyloromyotomy No recent general surgery visit [facility] Medical History Diabetes Hypertension Home Medications lisinopril 20 mg tablet 20 mg PO DAILY 30 days #30 tabs 02/02/21 [Rx Last Taken Unknown] empagliflozin 25 mg tablet 25 mg PO DAILY 03/10/22 [History Last Taken Unknown] ondansetron 4 mg disintegrating tablet 4 mg PO Q8H PRN PRN Nausea #10 tabs 03/10/22 [Rx Last Taken Unknown] sitagliptin 100 mg tablet 100 mg PO DAILY 03/10/22 [History Last Taken Unknown] amlodipine 5 mg tablet 5 mg PO DAILY 03/11/22 [History Last Taken Unknown] metformin 500 mg tablet 1,000 tab PO BID 03/11/22 [History Last Taken Unknown] sildenafil 100 mg tablet 1 tab PO PRN PRN Erectile Dysfunction 03/11/22 [History Last Taken Unknown] Allergy/AdvReac Type Severity Reaction Status Date / Time No Known Allergies Allergy Verified 03/11/22 12:04 Family History Brother CAD (coronary artery disease) Surgical History History of cholecystectomy Social History household members: spouse current occupational status: disabled Smoking Status: Former smoker alcohol intake: never substance use type: does not use ROS ROS ED Eyes Eyes: Denies other visual disturbances ENT ENT ED: Denies ear pain Cardiovascular Cardiovascular: Denies chest pain Respiratory/Chest Respiratory/Chest: Denies dyspnea Gastrointestinal Gastrointestinal: Reports nausea, vomiting and other Details: Positive for abdominal pain ; Denies abdominal pain Genitourinary Genitourinary ED: Denies dysuria Musculoskeletal Musculoskeletal: Denies joint pain Integumentary Denies rash Neurologic Neurologic: Denies dizziness, focal weakness, numbness, syncope or weakness Psychiatric Psychiatric: Denies homicidal ideation or suicidal ideation EXAM Physical Exam Const Vital Signs: 03/11/22 12:02 03/11/22 12:22 03/11/22 14:08 Temperature 97.7 F L Temperature Source Temporal Pulse Rate 83 90 93 Respiratory Rate 14 15 Blood Pressure 174/112 H Blood Pressure Mean 132 Pulse Ox 95 Oxygen Delivery Method Room Air Negative for alert or oriented x3 General Appearance ED: Negative for comfortable Orientation / Consciousness: Negative for awake HEENT Denies normocephalic Face and Sinus: Negative for face symmetric External Ear: Negative for external ears normal Mouth ED: No moist mucous membranes normal Throat: Negative for posterior oropharynx normal Eyes Negative for PERRL or EOMs intact bilaterally Neck No full ROM Carotids: other Other Details: no carotid bruits Chest Wall Negative for inspection of chest normal Resp No normal respiratory effort, No no retractions, No no use of accessory muscles and No clear to auscultation bilaterally Cardio Negative for no murmurs or peripheral pulses 2+ throughout GI Negative for no bruits GI Narrative: no pulsatile abdominal masses, soft, nondistended, mild tenderness, no e pigastric tenderness, no Orantes sign. No tenderness at McBurney's point Negative for no CVA tenderness Back/Spine Cervical Spine: Negative for cervical ROM normal Extremity Negative for normal to inspection or full ROM Skin Rashes: No rashes noted MDM MDM MDM Narrative Medical decision making narrative: 41-year-old male here for nausea vomiting abdominal pain. Second visit in 2 days. Patient was hemodynamically stable, afebrile, nontoxic-appearing. Abdominal exam without peritoneal signs. Low suspicion for obstruction or perforation at this time. I obtained a broad lab work-up. Gave antinausea medicine. Gave fluid resuscitation. Labs were remarkable for evidence of hemoconcentration, mild hypokalemia. Potassium was replaced. P.o. challenge was obtained patient was able tolerate p.o. and is appropriate for discharge home with prompt follow-up for outpatient pyloromyotomy Lab Data Attestation: I reviewed the patient's lab results. Lab results narrative: CBC with likely hemoconcentration, worsening leukocytosis, no thrombocytopenia BMP, LFTs mild hypokalemia, no anion gap, no evidence of acute kidney injury, no evidence of hepatobiliary pathology Lipase within normal limits without evidence of pancreatitis Labs: Laboratory Results - last 24 hr 03/11/22 03/11/22 03/11/22 12:20 12:20 12:25 WBC 15.5 H RBC 6.07 Hgb 18.3 H* Hct 51.7 MCV 85.2 MCH 30.1 MCHC 35.4 RDW Std Deviation 39.8 RDW Coeff of Tobias 12.9 Plt Count 323 MPV 12.0 Immature Gran % (Auto) 0.500 Neut % (Auto) 81.0 H Lymph % (Auto) 11.0 L [place] % (Auto) 6.6 Eos % (Auto) 0.4 Baso % (Auto) 0.5 Absolute Neuts (auto) 12.5 H Absolute Lymphs (auto) 1.71 Nucleated RBC % 0 Sodium 137 Potassium 3.2 L Chloride 100 Carbon Dioxide 25.0 Anion Gap 12 BUN 13 Creatinine 0.85 Estim Creat Clear Calc 130.56 Est GFR (MDRD) Af Amer 128 Est GFR (MDRD) Non-Af 105 BUN/Creatinine Ratio 15.2 Glucose 221 H Calcium 9.7 Total Bilirubin 1.00 Direct Bilirubin 0.31 H AST 24 ALT 45 Alkaline Phosphatase 67 Total Protein 8.9 H Albumin 4.4 Globulin 4.5 H Lipase 53 L POC Glucose 242 H Treatment and Re-Evaluation Narrative: Repeat evaluation shows comfortable. Patient resting in bed. Abdominal exam is benign. Discharge Plan Triage Chief Complaint: Nausea/Vomiting ED Provider: Christ Villalpando Dx/Rx/DC Orders Clinical Impression: Nausea & vomiting Instructions: Anatomy of the Digestive System, ED Vomiting (Adult) Prescriptions: No Action lisinopril 20 mg Tablet 20 mg PO DAILY 30 Days Qty: 30 0RF sitagliptin 100 mg Tablet 100 mg PO DAILY empagliflozin 25 mg Tablet 25 mg PO DAILY ondansetron 4 mg tablet,disintegrating 4 mg PO Q8H PRN PRN (Reason: Nausea) Qty: 10 0RF metformin 500 mg tablet 1,000 tab PO BID Label Comments: TAKE 2 TABLETS BY MOUTH TWICE DAILY WITH MEALS amlodipine 5 mg tablet 5 mg PO DAILY Label Comments: TAKE 1 TABLET BY MOUTH ONCE DAILY sildenafil 100 mg tablet 1 tab PO PRN PRN (Reason: Erectile Dysfunction) Label Comments: TAKE 1 TABLET 30 MINUTES PRIOR TO INTERCOURSE, ON AN EMPTY STOMACH AND WITH SEXUAL STIMULATION IMMEDIATELY FOLLOWING. Primary Care Provider: Nasra Rice NP Referrals: Nasra Rice NP, HEALTH SCIENCES MANAGER-C [Primary Care Provider] - Activity Restrictions/Additional Instructions: Please return if you develop nausea vomiting that is refractory to your oral antinausea medicine. Please follow-up with your surgeon at your already scheduled appointment. Disposition Disposition: Home, Self Care
[2022-03-11] MEDS: Ondansetron 4 MG/2 ML Vial IV (13:39)
[2022-03-11] MEDS: 0.9% Normal Saline 1,000 ML 1000 ML IV (13:39)
[2022-03-11] MEDS: Morphine 4 MG/ML Syringe IV (13:39)
[2022-03-11 13:41] LABS: Absolute Lymphocyte Count 1.71 X10^3/uL (0.83-4.51); Absolute Neutrophil Count 12.5 X10^3/uL (2.0-7.7); Basophil# 0.07 X10^3/uL; Basophil% 0.5 % (0-1); Eosinophil# 0.06 X10^3/uL; Eosinophils% 0.4 % (0-5); Hematocrit 51.7 % (40-54); Lymphocyte # 1.71 X10^3/ul (0.83-4.51); Mean Corp Hgb Conc 35.4 g/dL (32-36); Mean Corpuscular Hgb 30.1 pg (27.0-32.0); Mean Corpuscular Volume 85.2 fL (80-94); Monocyte# 1.02 X10^3/uL; Monocyte% 6.6 % (0-10); NRBC Flagged by Analyzer 0 % (0-5); Neutrophil # 12.54 X10^3/uL (2.7-7.7); Platelet Count 323 K/mm3 (150-450); RBC Distribution Width CV 12.9 % (11.6-14.6); RBC Distribution Width SD 39.8 fl (35.1-43.9); Red Blood Count 6.07 M/mm3 (4.6-6.2); White Blood Count 15.5 K/mm3 (4.4-11.0)
[2022-03-11 13:43] LABS: Hemoglobin 18.3 g/dL (13.0-16.5)
--- NOTE | 2022-03-11 13:45 | ED.RN ---
LAB RESULTED HGB 18.3
[2022-03-11 13:56] LABS: AST(SGOT) 24 U/L (15-37); Alanine Aminotransfer ALT/SGPT 45 U/L (16-61); Albumin, Serum 4.4 g/dL (3.2-5.0); Alkaline Phosphatase 67 U/L (45-117); Anion Gap 12 (5-15); BUN 13 mg/dL (7-18); BUN/Creat Ratio 15.2 RATIO (10-20); Bilirubin, Direct 0.31 mg/dL (0.00-0.30); Calcium,Total 9.7 mg/dL (8.5-10.1); Chloride 100 mmol/L (98-107); Creatinine, Serum 0.85 mg/dL (0.70-1.30); EST Glomerular Filtration Rate 105 mL/min (>60); Est Glom Filt Rate - Afr Amer 128 mL/min (>60); Estimated Creatinine Clearance 130.56 ml/min; Globulin 4.5 g/dL (2.2-4.2); Glucose 221 mg/dL (74-106); Lipase 53 U/L (73-393); Potassium 3.2 mmol/L (3.5-5.1); Protein, Total 8.9 g/dL (6.4-8.2); Sodium Level 137 mmol/L (136-145)
[2022-03-11 14:08] VITALS: PULSE 93; RESP 15
[2022-03-11] MEDS: Famotidine 200 MG/20 ML MDV 20 MG in 0.9% Normal Saline (Pres. free 8 ML 300 MG IV (14:10)
[2022-03-11] MEDS: Potassium Chloride Oral Tablet 20 MEQ PO (15:54)
== END 2022-03-11 15:58 | disposition home or self-care (01) ==
PROVIDERS: Emergency Provider Emergency Medicine; PCP Clinical Nurse Specialist; Visit Provider Emergency Medicine
DX: R11.2 Nausea with vomiting, unspecified (principal); E11.9 Type 2 diabetes mellitus without complications; E87.6 Hypokalemia; I10 Essential (primary) hypertension; Z90.49 Acquired absence of other specified parts of digestive tract; Z79.84 Long term (current) use of oral hypoglycemic drugs; Z79.899 Other long term (current) drug therapy; Z87.891 Personal history of nicotine dependence
CPT/HCPCS: 80048; 80076; 82962; 83690; 85025; 96361; 96374; 96375; 99282; J7030; A4216; J2405; J3490

== ENCOUNTER 2022-03-12 11:09 | Emergency (ER) | payer MEDICAID, SELFPAY ==
[2022-03-12 11:10] VITALS: BP 162/71; PULSE 93; RESP 16; TEMP 36.2; O2SAT 95; BMI 35.9
--- NOTE | 2022-03-12 12:23 | CT_ITS ---
STUDY: CT ABDOMEN AND PELVIS WITH CONTRAST REASON FOR EXAM: Male, 41 years old. abdominal pain and vomiting -- IV PO Contrast RADIATION DOSAGE (If Supplied By Facility): CTDIvol = ( 31.24 ) mGy, DLP = ( 1962.81 ) mGycm TECHNIQUE: Transaxial images were obtained from the dome of the diaphragm to the symphysis pubis without oral contrast. Oral and amp;amp; IV Gastrografin and amp;amp; 100mL Isovue-300 was administered. Sagittal and coronal images were reconstructed. Individualized dose optimization techniques were used for this CT. COMPARISON: None. FINDINGS: The visualized lung bases are unremarkable. The visualized portions of the heart are within normal limits. Normal liver. There is non-visualization of the gallbladder, which may be secondary to either contraction or a prior cholecystectomy. Normal spleen. Normal pancreas. Normal bilateral adrenal glands. Normal right kidney. Normal left kidney. Normal visualized stomach. Normal small intestine. There are multiple colonic diverticula consistent with diverticulosis. The appendix is visualized and appears normal. Normal abdominal aorta. Normal inferior vena cava. Normal retroperitoneum. Normal urinary bladder. Normal abdominal wall. Normal osseous structures. CT/Abdomen/Pelvis WITH Contrast IMPRESSION: Sigmoid diverticulosis without diverticulitis. Electronically Signed: Jem Mascorro MD at 15:15 EDT ,
--- NOTE | 2022-03-12 12:31 | EDS_ITS ---
HPI History of Present Illness Chief Complaint: Abd Pain Informant: patient Narrative Narrative: 41-year-old male history of diabetes states that he has been vomiting since Friday. He came to the emergency department on Friday had a white count of about [address] of the abdomen pelvis. He was discharged home returned here yesterday. Yesterday had a white count of 15 and was discharged home. He states he continues to vomit. He has not had a bowel movement for several days. No fever. He notes pain just underneath his umbilicus that began around the same time as his vomiting. He is a diabetic and states that he has diabetic gastroparesis. He states he has a GI doctor near [place]. [facility] Medical History Diabetes Hypertension Schizophrenia Home Medications lisinopril 20 mg tablet 20 mg PO DAILY 30 days #30 tabs 02/02/21 [Rx Last Taken Unknown] empagliflozin 25 mg tablet 25 mg PO DAILY 03/10/22 [History Last Taken Unknown] ondansetron 4 mg disintegrating tablet 4 mg PO Q8H PRN PRN Nausea #10 tabs 03/10/22 [Rx Last Taken Unknown] sitagliptin 100 mg tablet 100 mg PO DAILY 03/10/22 [History Last Taken Unknown] amlodipine 5 mg tablet 5 mg PO DAILY 03/11/22 [History Last Taken Unknown] metformin 500 mg tablet 1,000 tab PO BID 03/11/22 [History Last Taken Unknown] sildenafil 100 mg tablet 1 tab PO PRN PRN Erectile Dysfunction 03/11/22 [History Last Taken Unknown] metoclopramide HCl 10 mg tablet (Reglan) 10 mg PO Q6H PRN nausea and vomiting #20 tabs 03/12/22 [Rx Last Taken Unknown] Allergy/AdvReac Type Severity Reaction Status Date / Time No Known Allergies Allergy Verified 03/12/22 11:10 Family History Brother CAD (coronary artery disease) Surgical History History of cholecystectomy Social History household members: spouse current occupational status: disabled Smoking Status: Former smoker alcohol intake: never substance use type: does not use ROS ROS ED Constitutional Constitutional ED: Denies chills or weight loss Eyes Eyes: Denies change in vision or diplopia ENT ENT ED: Denies ear pain, rhinorrhea or sore throat Cardiovascular Cardiovascular: Denies chest pain, orthopnea, palpitations or racing heartbeat Respiratory/Chest Respiratory/Chest: Denies cough, dyspnea or orthopnea Gastrointestinal Gastrointestinal: Reports abdominal pain, nausea and vomiting; Denies diarrhea Genitourinary Genitourinary ED: Denies dysuria, hematuria or urinary frequency Musculoskeletal Musculoskeletal: Denies arthralgias or myalgias Integumentary Denies abscess or rash Neurologic Neurologic: Denies headache(s) or weakness Psychiatric Psychiatric: Denies anxiety, depression, suicidal ideation or suicidal thoughts Endocrine Endocrinology: Denies polydipsia, polyphagia or polyuria Allergic/Immunologic Allergic/Immunologic ED: Denies mouth swelling, tongue swelling or urticaria EXAM Physical Exam Const Vital Signs: 03/12/22 11:10 03/12/22 15:00 Temperature 97.1 F L Temperature Source Temporal Pulse Rate 93 85 Respiratory Rate 16 16 Blood Pressure 162/71 H 158/105 H Blood Pressure Mean 101 122 Pulse Ox 95 100 Oxygen Delivery Method Room Air Room Air Positive well nourished, well developed and obese General Appearance ED: well developed Nutritional Appearance: obese HEENT Reports normocephalic, head/scalp atraumatic and moist mucous membranes Eyes PERRL and EOMs intact bilaterally Neck no lymphadenopathy, supple and no JVD Resp normal respiratory effort and clear to auscultation bilaterally Cardio regular rate, regular rhythm and no murmurs GI GI Narrative: Patient is tender to palpation in the right lower quadrant and suprapubic region. There is no guarding or rebound Palpation: soft Back/Spine no CVA tenderness and normal ROM Extremity normal to inspection General Extremety ED: Negative for edema General Extremity: Negative for edema Neuro oriented x3 and CN's II-XII intact bilaterally Sensorium / Orientation: alert Motor Exam: strength 5/5 throughout Psych mental status grossly normal Mood & Affect: Negative for depressed or tearful Skin no rashes or lesions noted and no wounds MDM MDM MDM Narrative Medical decision making narrative: Labs shows now a normalization of his white count. Electrolytes are still normal. BUN 14 creatinine 0.69. Glucose 187. Normal LFTs and lipase of 54. CT of the abdomen pelvis with oral and IV contrast was obtained. This showed sigmoid diverticulosis. Contrast going through the small bowel. Patient was able to tolerate fluids after dose of Reglan. Lab Data Attestation: I reviewed the patient's lab results. Labs: Laboratory Results - last 24 hr 03/12/22 03/12/22 12:05 12:05 WBC 9.9 RBC 5.78 Hgb 17.2 H Hct 49.1 MCV 84.9 MCH 29.8 MCHC 35.0 RDW Std Deviation 39.0 RDW Coeff of Tobias 12.8 Plt Count 251 MPV 11.2 Immature Gran % (Auto) 0.600 Neut % (Auto) 82.3 H Lymph % (Auto) 11.2 L [place] % (Auto) 5.2 Eos % (Auto) 0.3 Baso % (Auto) 0.4 Absolute Neuts (auto) 8.2 H Absolute Lymphs (auto) 1.11 Nucleated RBC % 0 Sodium 137 Potassium 3.5 Chloride 102 Carbon Dioxide 25.0 Anion Gap 10 BUN 14 Creatinine 0.69 L Estim Creat Clear Calc 160.83 Est GFR (MDRD) Af Amer 163 Est GFR (MDRD) Non-Af 135 BUN/Creatinine Ratio 20.3 H Glucose 187 H Calcium 9.3 Total Bilirubin 1.00 AST 15 ALT 36 Alkaline Phosphatase 58 Total Protein 7.8 Albumin 3.9 Globulin 3.9 Albumin/Globulin Ratio 1.0 Lipase 54 L Radiography Diagnostic Testing: Clinical Impression(s) from Imaging Studies Abdomen/Pelvis CT 03/12/22 12:23 IMPRESSION: Sigmoid diverticulosis without diverticulitis. Electronically Signed: Jem Mascorro MD at 15:15 EDT , Discharge Plan Triage Chief Complaint: Abd Pain ED Provider: Denys Barragan Dx/Rx/DC Orders Clinical Impression: Diabetes, Nausea & vomiting Instructions: ED Vomiting (Adult) Prescriptions: New metoclopramide HCl [Reglan] 10 mg tablet 10 mg PO Q6H PRN (Reason: nausea and vomiting) Qty: 20 0RF No Action lisinopril 20 mg Tablet 20 mg PO DAILY 30 Days Qty: 30 0RF sitagliptin 100 mg Tablet 100 mg PO DAILY empagliflozin 25 mg Tablet 25 mg PO DAILY ondansetron 4 mg tablet,disintegrating 4 mg PO Q8H PRN PRN (Reason: Nausea) Qty: 10 0RF metformin 500 mg tablet 1,000 tab PO BID Label Comments: TAKE 2 TABLETS BY MOUTH TWICE DAILY WITH MEALS amlodipine 5 mg tablet 5 mg PO DAILY Label Comments: TAKE 1 TABLET BY MOUTH ONCE DAILY sildenafil 100 mg tablet 1 tab PO PRN PRN (Reason: Erectile Dysfunction) Label Comments: TAKE 1 TABLET 30 MINUTES PRIOR TO INTERCOURSE, ON AN EMPTY STOMACH AND WITH SEXUAL STIMULATION IMMEDIATELY FOLLOWING. Primary Care Provider: Nasra Rice NP Referrals: Nasra Rice NP, DATA CONVERSION DEVELOPER-C [Primary Care Provider] - 3-5 Days Disposition Disposition: Home, Self Care
[2022-03-12 12:33] LABS: Absolute Lymphocyte Count 1.11 X10^3/uL (0.83-4.51); Absolute Neutrophil Count 8.2 X10^3/uL (2.0-7.7); Basophil# 0.04 X10^3/uL; Basophil% 0.4 % (0-1); Eosinophil# 0.03 X10^3/uL; Eosinophils% 0.3 % (0-5); Hematocrit 49.1 % (40-54); Hemoglobin 17.2 g/dL (13.0-16.5); Lymphocyte # 1.11 X10^3/ul (0.83-4.51); Lymphocyte % 11.2 % (19-41); Mean Corpuscular Hgb 29.8 pg (27.0-32.0); Mean Corpuscular Volume 84.9 fL (80-94); Mean Platelet Vol. 11.2 fl (6.2-12.0); Monocyte# 0.52 X10^3/uL; Monocyte% 5.2 % (0-10); NRBC Flagged by Analyzer 0 % (0-5); Neutrophil # 8.16 X10^3/uL (2.7-7.7); Neutrophil % 82.3 % (47-70); Platelet Count 251 K/mm3 (150-450); RBC Distribution Width CV 12.8 % (11.6-14.6); Red Blood Count 5.78 M/mm3 (4.6-6.2); White Blood Count 9.9 K/mm3 (4.4-11.0)
[2022-03-12] MEDS: 0.9% Normal Saline 1,000 ML 1000 ML IV (12:38)
[2022-03-12] MEDS: Morphine 4 MG/ML Syringe IV (12:39)
[2022-03-12] MEDS: Metoclopramide 10 MG/2 ML Vial IV (12:39)
[2022-03-12 12:47] LABS: AST(SGOT) 15 U/L (15-37); Alanine Aminotransfer ALT/SGPT 36 U/L (16-61); Albumin, Serum 3.9 g/dL (3.2-5.0); Alkaline Phosphatase 58 U/L (45-117); Anion Gap 10 (5-15); BUN 14 mg/dL (7-18); BUN/Creat Ratio 20.3 RATIO (10-20); Calcium,Total 9.3 mg/dL (8.5-10.1); Chloride 102 mmol/L (98-107); Creatinine, Serum 0.69 mg/dL (0.70-1.30); EST Glomerular Filtration Rate 135 mL/min (>60); Est Glom Filt Rate - Afr Amer 163 mL/min (>60); Estimated Creatinine Clearance 160.83 ml/min; Globulin 3.9 g/dL (2.2-4.2); Glucose 187 mg/dL (74-106); Lipase 54 U/L (73-393); Potassium 3.5 mmol/L (3.5-5.1); Protein, Total 7.8 g/dL (6.4-8.2); Sodium Level 137 mmol/L (136-145)
[2022-03-12 15:00] VITALS: BP 158/105; PULSE 85; RESP 16; O2SAT 100
== END 2022-03-12 15:40 | disposition home or self-care (01) ==
PROVIDERS: Emergency Provider Emergency Medicine; PCP Clinical Nurse Specialist; Visit Provider Emergency Medicine
DX: R11.2 Nausea with vomiting, unspecified (principal); E11.43 Type 2 diabetes mellitus with diabetic autonomic (poly)neuropathy; K31.84 Gastroparesis; I10 Essential (primary) hypertension; E66.9 Obesity, unspecified; Z68.35 Body mass index [BMI] 35.0-35.9, adult; Z79.84 Long term (current) use of oral hypoglycemic drugs; Z79.899 Other long term (current) drug therapy; Z87.891 Personal history of nicotine dependence
CPT/HCPCS: 74177; 80053; 83690; 85025; 96361; 96374; 96375; 99283; J7030; Q9967; A4216

== ENCOUNTER 2023-05-19 14:55 | Emergency (ER) | payer MEDICAID, SELFPAY ==
[2023-05-19 14:56] VITALS: BP 202/121; PULSE 93; RESP 14; TEMP 36.6; O2SAT 97; BMI 32.6
--- NOTE | 2023-05-19 15:58 | EDS_ITS ---
HPI HPI - GI History of Present Illness Chief Complaint: Abd Pain Informant: patient Narrative Narrative: Patient presents with abdominal pain nausea and vomiting. Patient states that he has pain in his abdomen in the suprapubic to infraum bilical area. It radiates a little bit out from there. Does not radiate to the back or flank. He is also had nausea and vomiting for the last few days. He has not had diarrhea. His last bowel movement was about 4 days ago but he states that would be normal for him. Patient states he has had abdominal pain like this since about 2 years ago. He was seen by Dr. Mitchell and transferred up to [facility]. They told him that there was air between the muscles that make up the 6 back. No surgery was done and he was feeling better and discharged. He states since then he always has pain in this area but it is the nausea and vomiting that is newer and brought him in. He gets nausea and vomiting at times but not routinely. He has had no fevers. No urinary symptoms. No black or bloody bowel movements. [facility] Medical History Diabetes Hypertension Schizophrenia Home Medications lisinopril 20 mg tablet 20 mg PO DAILY 30 days #30 tabs 02/02/21 [Rx Last Taken Unknown] empagliflozin 25 mg tablet 25 mg PO DAILY 03/10/22 [History Last Taken Unknown] ondansetron 4 mg disintegrating tablet 4 mg PO Q8H PRN PRN Nausea #10 tabs 03/10/22 [Rx Last Taken Unknown] sitagliptin phosphate 100 mg tablet 100 mg PO DAILY 03/10/22 [History Last Taken Unknown] amlodipine 5 mg tablet 5 mg PO DAILY 03/11/22 [History Last Taken Unknown] metformin 500 mg tablet 1,000 tab PO BID 03/11/22 [History Last Taken Unknown] sildenafil 100 mg tablet 1 tab PO PRN PRN Erectile Dysfunction 03/11/22 [History Last Taken Unknown] metoclopramide HCl 10 mg tablet (Reglan) 10 mg PO Q6H PRN nausea and vomiting #20 tabs 03/12/22 [Rx Last Taken Unknown] metoclopramide HCl 10 mg tablet (Reglan) 10 mg PO Q8H PRN nausea and vomiting #20 tabs 05/19/23 [Rx Last Taken Unknown] ondansetron 4 mg disintegrating tablet 4 mg PO Q8H PRN PRN Nausea #10 tabs 05/19/23 [Rx Last Taken Unknown] Allergy/AdvReac Type Severity Reaction Status Date / Time No Known Allergies Allergy Verified 05/19/23 14:56 Family History Brother CAD (coronary artery disease) Surgical History History of cholecystectomy Social History household members: spouse current occupational status: disabled Smoking Status: Former smoker alcohol intake: never substance use type: does not use ROS ROS ED ROS Narrative A complete review of systems was performed and is negative except as documented in the history of present illness. Some specific details below. Constitutional: No recent fevers or chills. No malaise. EYE: No visual complaints or pain. ENT: No difficulty swallowing. No swelling. No pain. CV: No chest pain or palpitations. Respiratory: No dyspnea. No hemoptysis. No difficulty taking breaths. GI: Please see history of present illness. : No frequency dysuria or hematuria. No polyuria. Musculoskeletal: No recent trauma. No pains. No flank or back pain Skin: No rash. Nondiaphoretic. Neuro: No weakness or numbness. Endocrine: No polyuria or polydipsia. EXAM Physical Exam Narrative Exam Narrative: CONSTITUTIONAL: Patient is nontoxic in appearance. The patient looks comfortable. HEENT: No notable trauma. Mucous membranes moist. No sinus tenderness. No indication of pain with swallowing. EYES: No conjunctival injection. No proptosis. CARDIOVASCULAR: Regular rate. Regular rhythm. No notable murmur. No JVD. RESPIRATORY: No respiratory distress. Breathing is unlabored. No wheezes. No rhonchi. No rales. No pain with a deep breath. GASTROINTESTINAL: Not distended. Bowel sounds are normal?they are not increased or decreased. Patient does have a ventral hernia but it is only prominent with straining and spontaneously reduces. He does have some mild tenderness below the umbilicus but no hernia anywhere in that area. There is no rebound or guarding. GENITOURINARY: No tenderness over the bladder. No CVA tenderness on either side. MUSCULOSKELETAL: Atraumatic. No peripheral edema. No cord. No tenderness along the deep venous system. No asymmetry. NEUROLOGICAL: Patient is alert and appropriate. No focal deficit noted. SKIN: No noted rashes. No diaphoresis. No lesions or erythema. PSYCHIATRIC: Patient is calm. Mood is appropriate. Const Vital Signs: 05/19/23 14:56 05/19/23 17:37 Temperature 98 F Temperature Source Temporal Pulse Rate 93 73 Respiratory Rate 14 Blood Pressure 202/121 H 174/114 H Blood Pressure Mean 148 134 Pulse Ox 97 Oxygen Delivery Method Room Air MDM MDM MDM Narrative Medical decision making narrative: Patient CBC shows minimal elevation in the white count and hemoglobin. Platelets are normal. Patient's electrolytes show minimally low sodium potassium but this should self correct. No sign of significant dehydration. Glucose is elevated at 261. Patient's liver function test showed no marked abnormalities. Patient paces both. Patient's urine shows no sign of infection. There is some increased glucose. But no sign of DKA on his labs. My independent interpretation of CT scan of the abdomen shows no acute process. The final read does make note of an large air-fluid level in the stomach. I discussed patient about gastroparesis. He has had diabetes for a long time. He thinks he has been told he has gastroparesis but not sure. But his symptoms have been going on for 2 years. He is feeling better now. He drank some fluids here. Nausea is better. I will get him started on Reglan and I will give him a dose here. I will also get him some Zofran. He will follow-up with his primary physician. He should return with increasing distention worsening of his chronic pain, fevers, recurrent vomiting or other concerns. Lab Data Attestation: I reviewed the patient's lab results. Labs: Laboratory Results - last 24 hr 05/19/23 05/19/23 16:00 16:05 WBC 12.2 H RBC 5.74 Hgb 16.9 H Hct 50.5 MCV 88.0 MCH 29.4 MCHC 33.5 RDW Std Deviation 42.6 RDW Coeff of Tobias 13.2 Plt Count 322 MPV 11.8 Immature Gran % (Auto) 0.600 Neut % (Auto) 84.8 H Lymph % (Auto) 10.0 L [place] % (Auto) 4.0 Eos % (Auto) 0.1 Baso % (Auto) 0.5 Absolute Neuts (auto) 10.3 H Absolute Lymphs (auto) 1.22 Nucleated RBC % 0 Sodium 134 L Potassium 3.2 L Chloride 98 Carbon Dioxide 23.0 Anion Gap 13 BUN 10 Creatinine 0.67 L Estim Creat Clear Calc 163.97 Est GFR (MDRD) Af Amer 169 Est GFR (MDRD) Non-Af 139 BUN/Creatinine Ratio 15.0 Glucose 261 H Calcium 9.2 Total Bilirubin 0.90 Direct Bilirubin 0.27 AST 14 L ALT 26 Alkaline Phosphatase 89 Total Protein 8.0 Albumin 3.6 Globulin 4.4 H Lipase 12 L Urine Color Yellow Urine Clarity Sl. Cloudy Urine pH 5.0 Ur Specific Lorane 1.030 Urine Protein 30 H Urine Glucose (UA) 1000 H Urine Ketones 150 A* Urine Occult Blood Negative Urine Nitrite Negative Urine Bilirubin Negative Urine Urobilinogen Normal Ur Leukocyte Esterase Negative Urine RBC 0 SEEN Urine WBC 0 SEEN Ur Squamous Epith Cells 0-5 SEEN Amorphous Sediment 1+ URATE Urine Bacteria 0 SEEN Urine Mucus 0 SEEN Radiography Diagnostic Testing: Clinical Impression(s) from Imaging Studies Abdomen/Pelvis CT 05/19/23 17:05 IMPRESSION: Prominent air fluid level in the stomach. No sign of bowel obstruction. Electronically Signed: Kelvin Garcia DO at 17:36 EDT Reading Location ID and State: [facility] / [place] Tel [phone], Service support , Discharge Plan Triage Chief Complaint: Abd Pain ED Provider: Frantz Connors Dx/Rx/DC Orders Clinical Impression: History of diabetes mellitus, type II, Nausea & vomiting, Abdominal pain, Diabetic gastroparesis Instructions: Delayed Gastric Emptying, ED Abdominal Pain Unkn Cause Male... Prescriptions: New ondansetron [ondansetron] 4 mg tablet,disintegrating 4 mg PO Q8H PRN PRN (Reason: Nausea) Qty: 10 0RF metoclopramide HCl [Reglan] 10 mg tablet 10 mg PO Q8H PRN (Reason: nausea and vomiting) Qty: 20 0RF No Action lisinopril 20 mg Tablet 20 mg PO DAILY 30 Days Qty: 30 0RF sitagliptin phosphate 100 mg Tablet 100 mg PO DAILY empagliflozin 25 mg Tablet 25 mg PO DAILY ondansetron 4 mg tablet,disintegrating 4 mg PO Q8H PRN PRN (Reason: Nausea) Qty: 10 0RF metformin 500 mg tablet 1,000 tab PO BID Patient Comments: TAKE 2 TABLETS BY MOUTH TWICE DAILY WITH MEALS amlodipine 5 mg tablet 5 mg PO DAILY Patient Comments: TAKE 1 TABLET BY MOUTH ONCE DAILY sildenafil 100 mg tablet 1 tab PO PRN PRN (Reason: Erectile Dysfunction) Patient Comments: TAKE 1 TABLET 30 MINUTES PRIOR TO INTERCOURSE, ON AN EMPTY STOMACH AND WITH SEXUAL STIMULATION IMMEDIATELY FOLLOWING. metoclopramide HCl [Reglan] 10 mg tablet 10 mg PO Q6H PRN (Reason: nausea and vomiting) Qty: 20 0RF Primary Care Provider: Nasra Rice NP Referrals: Nasra Rice INTELLIGENCE MANAGER, INTELLIGENCE MANAGER-C [Primary Care Provider] - 3-5 Days Disposition Disposition: Home, Self Care
[2023-05-19 16:12] LABS: Bacteria 0 SEEN /hpf (None Seen); Mucous, Urine 0 SEEN /hpf (<or=2+); Red Blood Cells-Urine 0 SEEN /hpf (0-5); White Blood Cells 0 SEEN /hpf (0-5)
[2023-05-19] MEDS: Ondansetron 4 MG/2 ML Vial IV (16:13)
[2023-05-19] MEDS: 0.9% Normal Saline 1,000 ML 1000 ML IV (16:13)
[2023-05-19 16:14] LABS: Color, Urine Yellow (Yellow); Glucose, Dipstick 1000 mg/dl (Normal); Leukocyte Esterase-Dipstick Negative /ul (Negative); Nitrite-Dipstick Negative (Negative); Occult Blood-Urine Negative /ul (Negative); Protein-Dipstick 30 mg/dl (Negative); Urine Bilirubin Dipstick Negative (Negative); Urine Clarity Sl. Cloudy (Clear); Urine Urobilinogen Normal (Normal)
[2023-05-19 16:20] LABS: Absolute Lymphocyte Count 1.22 X10^3/uL (0.83-4.51); Absolute Neutrophil Count 10.3 X10^3/uL (2.0-7.7); Basophil# 0.06 X10^3/uL; Basophil% 0.5 % (0-1); Eosinophil# 0.01 X10^3/uL; Eosinophils% 0.1 % (0-5); Hematocrit 50.5 % (40-54); Hemoglobin 16.9 g/dL (13.0-16.5); Lymphocyte # 1.22 X10^3/ul (0.83-4.51); Mean Corp Hgb Conc 33.5 g/dL (32-36); Mean Corpuscular Hgb 29.4 pg (27.0-32.0); Mean Platelet Vol. 11.8 fl (6.2-12.0); Monocyte# 0.49 X10^3/uL; NRBC Flagged by Analyzer 0 % (0-5); Neutrophil # 10.34 X10^3/uL (2.7-7.7); Neutrophil % 84.8 % (47-70); Platelet Count 322 K/mm3 (150-450); RBC Distribution Width CV 13.2 % (11.6-14.6); RBC Distribution Width SD 42.6 fl (35.1-43.9); Red Blood Count 5.74 M/mm3 (4.6-6.2); White Blood Count 12.2 K/mm3 (4.4-11.0)
[2023-05-19 16:30] LABS: Ketone-Dipstick 150 mg/dl (Negative)
[2023-05-19 16:49] LABS: Amorphous Sediment 1+ URATE; Squamous Epithelial Cells - UA 0-5 SEEN /hpf (0-5)
[2023-05-19 16:51] LABS: AST(SGOT) 14 U/L (15-37); Alanine Aminotransfer ALT/SGPT 26 U/L (16-61); Albumin, Serum 3.6 g/dL (3.2-5.0); Alkaline Phosphatase 89 U/L (45-117); Anion Gap 13 (5-15); BUN 10 mg/dL (7-18); Bilirubin, Direct 0.27 mg/dL (0.00-0.30); Calcium,Total 9.2 mg/dL (8.5-10.1); Chloride 98 mmol/L (98-107); Creatinine, Serum 0.67 mg/dL (0.70-1.30); EST Glomerular Filtration Rate 139 mL/min (>60); Est Glom Filt Rate - Afr Amer 169 mL/min (>60); Estimated Creatinine Clearance 163.97 ml/min; Globulin 4.4 g/dL (2.2-4.2); Glucose 261 mg/dL (74-106); Lipase 12 U/L (13-75); Potassium 3.2 mmol/L (3.5-5.1); Sodium Level 134 mmol/L (136-145)
[2023-05-19 17:00] VITALS: BP 174/114
--- NOTE | 2023-05-19 17:05 | CT_ITS ---
STUDY: CT ABDOMEN AND PELVIS WITH CONTRAST REASON FOR EXAM: Male, 42 years old. Pain vomiting RADIATION DOSAGE (If Supplied By Facility): CTDIvol = ( 16.74 ) mGy, DLP = ( 1280.21 ) mGycm TECHNIQUE: Transaxial images were obtained from the dome of the diaphragm to the symphysis pubis without oral contrast. IV 100mL Isovue-300 was administered. Sagittal and coronal images were reconstructed. Individualized dose optimization techniques were used for this CT. COMPARISON: March 12, 2022 FINDINGS: The visualized lung bases are unremarkable. The visualized portions of the heart are within normal limits. Normal liver. Nonvisualization of the gallbladder. No significant dilatation of the extrahepatic biliary system. Normal spleen. Normal pancreas. Normal bilateral adrenal glands. Normal right kidney. Normal left kidney. Prominent air-fluid level in the stomach. Normal small intestine. Normal colon. The appendix is visualized and appears normal. Normal abdominal aorta. Normal inferior vena cava. Normal retroperitoneum. Normal urinary bladder. Normal abdominal wall. Normal osseous structures. CT/Abdomen/Pelvis W IV Cont ONLY IMPRESSION: Prominent air fluid level in the stomach. No sign of bowel obstruction. Electronically Signed: Kelvin Garcia DO at 17:36 EDT Reading Location ID and State: [facility] / [place] Tel [phone], Service support ,
[2023-05-19 17:37] VITALS: BP 174/114; PULSE 73
[2023-05-19] MEDS: Metoclopramide 10 MG/2 ML Vial 5 MG IV (19:39)
[2023-05-19 19:40] VITALS: BP 160/91; PULSE 71; RESP 18; O2SAT 97
== END 2023-05-19 19:41 | disposition home or self-care (01) ==
PROVIDERS: Emergency Provider Emergency Medicine; PCP Clinical Nurse Specialist; Visit Provider Emergency Medicine
DX: R11.2 Nausea with vomiting, unspecified (principal); E11.9 Type 2 diabetes mellitus without complications; R10.9 Unspecified abdominal pain; K31.84 Gastroparesis; Z87.891 Personal history of nicotine dependence
CPT/HCPCS: 74177; 80048; 80076; 81001; 83690; 85025; 96361; 96374; 96375; 99283; J7030; Q9967; A4216; J2405

== ENCOUNTER 2023-07-14 09:32 | Emergency (ER) | payer MEDICAID, SELFPAY ==
[2023-07-14 09:34] VITALS: BP 208/193; PULSE 100; RESP 20; TEMP 36.6; O2SAT 98
[2023-07-14 09:45] VITALS: BMI 33.5
--- NOTE | 2023-07-14 09:45 | CT_ITS ---
STUDY: CT ABDOMEN AND PELVIS WITH CONTRAST REASON FOR EXAM: Male, 42 years old. Abdominal pain. RADIATION DOSAGE (If Supplied By Facility): CTDIvol = ( 16.44 ) mGy, DLP = ( 1272.10 ) mGycm TECHNIQUE: Transaxial images were obtained through the abdomen and pelvis without oral contrast. 100 ml of Isovue-300 contrast was administered. Sagittal and coronal images were reconstructed. Individualized dose optimization techniques were used for this CT. COMPARISON: No relevant prior comparison study available FINDINGS: LOWER THORAX: The visualized lung bases are clear. The visualized portions of the heart and pericardium are within normal limits. GALLBLADDER / BILE DUCTS: The patient is status post cholecystectomy. There is no intrahepatic biliary duct dilatation. The common bile duct is normal in caliber. There are no calcified ductal stones. LIVER: The liver is within normal limits. There are no suspicious hepatic lesions. SPLEEN: The spleen is normal in size. PANCREAS: The pancreas is within normal limits. ADRENAL GLANDS: The adrenal glands are within normal limits. KIDNEYS / BLADDER: There are no renal or ureteral stones. There is no hydronephrosis. There are no focal renal lesions. The urinary bladder is partially distended and appears grossly unremarkable. STOMACH / BOWEL: Normal visualized stomach. There is no bowel obstruction or inflammation. The appendix is visualized and appears normal. PERITONEUM/RETROPERITONEUM: There is no abdominal or pelvic free air, free fluid or fluid collection. There is no abnormal soft tissue mass identified. There is no abdominal or pelvic lymphadenopathy. VESSELS: The aorta is normal in caliber. The IVC is unremarkable. BONES: There are no destructive osseous lesions. SOFT TISSUES: The visualized soft tissues are within normal limits. CT/Abdomen/Pelvis W IV Cont ONLY IMPRESSION: No acute abdominal or pelvic pathology. Electronically Signed: Jaswant Goldberg MD at 11:16 EDT ,
[2023-07-14 09:46] VITALS: BP 164/112
--- NOTE | 2023-07-14 09:47 | ED.VIS.GI ---
HPI HPI - GI History of Present Illness Chief Complaint: Abd Pain Informant: patient Narrative Narrative: Patient with sharp periumbilical abdominal pain that started yesterday gradually, followed by nausea and vomiting. He states initially it was red but he thinks he was drinking red fruit punch. Denies any hematemesis. Last bowel movement was before all of this, he states it was normal without melena or bright red blood per rectum. He states he has a history of this, he is a very poor historian, he can tell me that he has had pains like this off and on for couple years, and today he had an appointment with GI for the first time at [facility] and decided to cancel it because his pain was so bad so he came here to the ER. [facility] Medical History Diabetes Hypertension Schizophrenia Home Medications lisinopril 20 mg tablet 20 mg PO DAILY 30 days #30 tabs 02/02/21 [Rx Last Taken Unknown] empagliflozin 25 mg tablet 25 mg PO DAILY 03/10/22 [History Last Taken Unknown] sitagliptin phosphate 100 mg tablet 100 mg PO DAILY 03/10/22 [History Last Taken Unknown] amlodipine 5 mg tablet 5 mg PO DAILY 03/11/22 [History Last Taken Unknown] metformin 500 mg tablet 1,000 tab PO BID 03/11/22 [History Last Taken Unknown] sildenafil 100 mg tablet 1 tab PO PRN PRN Erectile Dysfunction 03/11/22 [History Last Taken Unknown] dicyclomine 10 mg capsule 20 mg (2 x 10 mg) PO Q6H PRN PRN abdominal pain #20 CAPSULES 07/14/23 [Rx Last Taken Unknown] ondansetron 4 mg disintegrating tablet 8 mg (2 x 4 mg) PO Q8H PRN PRN Nausea #20 tabs 07/14/23 [Rx Last Taken Unknown] Allergy/AdvReac Type Severity Reaction Status Date / Time No Known Allergies Allergy Verified 07/14/23 09:36 Family History Brother CAD (coronary artery disease) Surgical History History of cholecystectomy Social History household members: spouse current occupational status: disabled Smoking Status: Former smoker alcohol intake: never substance use type: does not use ROS ROS ED Constitutional Constitutional ED: Denies chills or fever(s) Eyes Eyes: Denies change in vision or diplopia ENT ENT ED: Denies rhinorrhea or sore throat Cardiovascular Cardiovascular: Denies chest pain or palpitations Respiratory/Chest Respiratory/Chest: Denies cough or dyspnea Gastrointestinal Gastrointestinal: Reports abdominal pain, nausea and vomiting; Denies diarrhea or melena Genitourinary Genitourinary ED: Denies dysuria or hematuria Musculoskeletal Musculoskeletal: Denies back pain or neck pain Integumentary Denies abscess or rash Neurologic Neurologic: Denies headache(s), paresthesias or weakness Psychiatric Psychiatric: Denies anxiety or suicidal thoughts EXAM Physical Exam Const Vital Signs: 07/14/23 09:34 07/14/23 09:46 Temperature 98 F Temperature Source Temporal Pulse Rate 100 Respiratory Rate 20 H Blood Pressure 208/193 H 164/112 H Blood Pressure Mean 198 129 Pulse Ox 98 Oxygen Delivery Method Room Air Positive well nourished and well developed General Appearance ED: well developed and NAD HEENT Reports moist mucous membranes normocephalic and atraumatic Eyes PERRL and EOMs intact bilaterally Neck full ROM and supple Resp normal respiratory effort and clear to auscultation bilaterally Cardio regular rate, regular rhythm and no murmurs GI non-distended GI Narrative: Periumbilical tenderness no palpable hernia mild epigastric tenderness otherwise benign abdomen. No guarding or rebound. Auscultation: normoactive bowel sounds Palpation: soft Back/Spine no CVA tenderness General Back: other FROM Extremity normal to inspection General Extremety ED: Negative for edema, pulses abnormal or tenderness General Extremity: Negative for edema or pulses abnormal Neuro oriented x3, CN's II-XII intact bilaterally and no sensory deficits noted Sensorium / Orientation: awake and alert Motor Exam: strength 5/5 throughout Psych Mood & Affect: anxious Skin no rashes or lesions noted and no wounds MDM MDM MDM Narrative Medical decision making narrative: Patient does have a mild leukocytosis, and he has a history of diverticulosis, so given that diverticulitis is in the differential labs and a CT scan were obtained, the CT shows nothing acute I reviewed the images and the report and I agree with it. Patient is doing better after medications and fluids. The periumbilical nature of the discomfort suggests small bowel pain. We will prescribe him Zofran and dicyclomine to use as needed, and hopefully this will be self-limiting and if not he is welcome to return or follow-up with his doctor. His high blood pressure did come down with just the above treatment, 160/112 he will need to have a repeat check as an outpatient. Lab Data Attestation: I reviewed the patient's lab results. Labs: Laboratory Results - last 24 hr 07/14/23 07/14/23 10:10 10:15 WBC 12.0 H RBC 5.84 Hgb 17.5 H Hct 51.3 MCV 87.8 MCH 30.0 MCHC 34.1 RDW Std Deviation 40.8 RDW Coeff of Tobias 12.7 Plt Count 340 MPV 11.8 Immature Gran % (Auto) 0.300 Neut % (Auto) 78.8 H Lymph % (Auto) 13.4 L Sibley % (Auto) 6.8 Eos % (Auto) 0.1 Baso % (Auto) 0.6 Absolute Neuts (auto) 9.5 H Absolute Lymphs (auto) 1.61 Nucleated RBC % 0 Sodium 135 L Potassium 3.3 L Chloride 99 Carbon Dioxide 24.0 Anion Gap 12 BUN 10 Creatinine 0.67 L Estim Creat Clear Calc 159.25 Est GFR (MDRD) Af Amer 168 Est GFR (MDRD) Non-Af 139 BUN/Creatinine Ratio 15.0 Glucose 273 H Calcium 9.4 Total Bilirubin 0.90 AST 12 L ALT 25 Alkaline Phosphatase 74 Total Protein 7.9 Albumin 3.9 Globulin 4.0 Albumin/Globulin Ratio 1.0 Urine Color Yellow Urine Clarity Sl. Cloudy Urine pH 5.0 Ur Specific Muddy 1.025 Urine Protein 100 H Urine Glucose (UA) 1000 H Urine Ketones 150 A* Urine Occult Blood 10 H Urine Nitrite Negative Urine Bilirubin Negative Urine Urobilinogen Normal Ur Leukocyte Esterase 25 H Urine RBC 0 SEEN Urine WBC 5-10 SEEN Ur Squamous Epith Cells 0-5 SEEN Urine Bacteria 0 SEEN Urine Mucus 0 SEEN Radiography Diagnostic Testing: Clinical Impression(s) from Imaging Studies Abdomen/Pelvis CT 07/14/23 09:45 IMPRESSION: No acute abdominal or pelvic pathology. Electronically Signed: Jaswant Goldberg MD at 11:16 EDT , Rhythm Strip Rhythm Strip: Sinus Rhythm Rate: 99 Ectopy: None Discharge Plan Triage Chief Complaint: Abd Pain ED Provider: Joey Encarnacion Dx/Rx/DC Orders Clinical Impression: Abdominal pain, acute, periumbilical, Acute gastritis without bleeding, Accelerated hypertension Instructions: Abdominal Pain, ED Gastritis (Adult) Prescriptions: New dicyclomine 10 mg capsule 20 mg PO Q6H PRN PRN (Reason: abdominal pain) Qty: 20 0RF ondansetron [ondansetron] 4 mg tablet,disintegrating 8 mg PO Q8H PRN PRN (Reason: Nausea) Qty: 20 0RF No Action lisinopril 20 mg Tablet 20 mg PO DAILY 30 Days Qty: 30 0RF sitagliptin phosphate 100 mg Tablet 100 mg PO DAILY empagliflozin 25 mg Tablet 25 mg PO DAILY metformin 500 mg tablet 1,000 tab PO BID Patient Comments: TAKE 2 TABLETS BY MOUTH TWICE DAILY WITH MEALS amlodipine 5 mg tablet 5 mg PO DAILY Patient Comments: TAKE 1 TABLET BY MOUTH ONCE DAILY sildenafil 100 mg tablet 1 tab PO PRN PRN (Reason: Erectile Dysfunction) Patient Comments: TAKE 1 TABLET 30 MINUTES PRIOR TO INTERCOURSE, ON AN EMPTY STOMACH AND WITH SEXUAL STIMULATION IMMEDIATELY FOLLOWING. Primary Care Provider: Nasra iRce NP Referrals: Nasra Rice NP, [employer] [Primary Care Provider] - 3-5 Days if not improving (Even if you are better make sure you follow-up with your doctor within the next week or 2 to have your blood pressure rechecked) Disposition Disposition: Home, Self Care
[2023-07-14 10:12] LABS: Bacteria 0 SEEN /hpf (None Seen); Mucous, Urine 0 SEEN /hpf (<or=2+); Red Blood Cells-Urine 0 SEEN /hpf (0-5)
[2023-07-14 10:14] LABS: Color, Urine Yellow (Yellow); Glucose, Dipstick 1000 mg/dl (Normal); Leukocyte Esterase-Dipstick 25 /ul (Negative); Nitrite-Dipstick Negative (Negative); Occult Blood-Urine 10 /ul (Negative); Protein-Dipstick 100 mg/dl (Negative); Specific Gravity, Urine 1.025 (1.002-1.030); Urine Bilirubin Dipstick Negative (Negative); Urine Clarity Sl. Cloudy (Clear); Urine Urobilinogen Normal (Normal)
[2023-07-14 10:18] LABS: Ketone-Dipstick 150 mg/dl (Negative)
[2023-07-14] MEDS: 0.9% Normal Saline (1000mL) 1,000 ML 1000 ML IV (10:20)
[2023-07-14] MEDS: Dicyclomine 10 MG Capsule 20 MG PO (10:21)
[2023-07-14] MEDS: Ondansetron 4 MG/2 ML Vial IV (10:22)
[2023-07-14] MEDS: Morphine 4 MG/ML Syringe IV (10:23)
[2023-07-14 10:24] LABS: Absolute Lymphocyte Count 1.61 X10^3/uL (0.83-4.51); Absolute Neutrophil Count 9.5 X10^3/uL (2.0-7.7); Basophil# 0.07 X10^3/uL; Basophil% 0.6 % (0-1); Eosinophil# 0.01 X10^3/uL; Eosinophils% 0.1 % (0-5); Hematocrit 51.3 % (40-54); Hemoglobin 17.5 g/dL (13.0-16.5); Lymphocyte # 1.61 X10^3/ul (0.83-4.51); Lymphocyte % 13.4 % (19-41); Mean Corp Hgb Conc 34.1 g/dL (32-36); Mean Corpuscular Volume 87.8 fL (80-94); Mean Platelet Vol. 11.8 fl (6.2-12.0); Monocyte# 0.82 X10^3/uL; Monocyte% 6.8 % (0-10); NRBC Flagged by Analyzer 0 % (0-5); Neutrophil # 9.45 X10^3/uL (2.7-7.7); Neutrophil % 78.8 % (47-70); Platelet Count 340 K/mm3 (150-450); RBC Distribution Width CV 12.7 % (11.6-14.6); RBC Distribution Width SD 40.8 fl (35.1-43.9); Red Blood Count 5.84 M/mm3 (4.6-6.2)
[2023-07-14] MEDS: Ketorolac 15 MG/ML Vial IV (10:24)
[2023-07-14 10:27] LABS: Squamous Epithelial Cells - UA 0-5 SEEN /hpf (0-5); White Blood Cells 5-10 SEEN /hpf (0-5)
[2023-07-14 10:43] LABS: AST(SGOT) 12 U/L (15-37); Alanine Aminotransfer ALT/SGPT 25 U/L (16-61); Albumin, Serum 3.9 g/dL (3.2-5.0); Alkaline Phosphatase 74 U/L (45-117); Anion Gap 12 (5-15); BUN 10 mg/dL (7-18); Calcium,Total 9.4 mg/dL (8.5-10.1); Chloride 99 mmol/L (98-107); Creatinine, Serum 0.67 mg/dL (0.70-1.30); EST Glomerular Filtration Rate 139 mL/min (>60); Est Glom Filt Rate - Afr Amer 168 mL/min (>60); Estimated Creatinine Clearance 159.25 ml/min; Glucose 273 mg/dL (74-106); Potassium 3.3 mmol/L (3.5-5.1); Protein, Total 7.9 g/dL (6.4-8.2); Sodium Level 135 mmol/L (136-145)
== END 2023-07-14 13:40 | disposition home or self-care (01) ==
PROVIDERS: Emergency Provider Emergency Medicine; PCP Clinical Nurse Specialist; Visit Provider Emergency Medicine
DX: R10.33 Periumbilical pain (principal); E11.9 Type 2 diabetes mellitus without complications; K29.00 Acute gastritis without bleeding; I10 Essential (primary) hypertension; Z87.891 Personal history of nicotine dependence; Z79.899 Other long term (current) drug therapy; Z79.84 Long term (current) use of oral hypoglycemic drugs
CPT/HCPCS: 74177; 80053; 81001; 85025; 96361; 96374; 96375; 99282; J7030; Q9967; A4216; J2405

== ENCOUNTER 2023-11-02 16:20 | Emergency (ER) | payer SELFPAY ==
[2023-11-02 16:21] VITALS: BP 177/125; PULSE 110; RESP 16; TEMP 36.7; O2SAT 100; BMI 33.5
--- OUTSIDE RECORDS SUMMARY | 2023-11-02 16:38 | XMS RPT_ITS | CCD ---
Author Name Unknown Address [address] [place] [address] Organization [facility] Care Team Providers Care Power Brake Rebuilder Name Role Phone Lisa Matos MD Primary Care Provider [facility], [place] Unavailable [facility], [place] Unavailable Preston Prado MD Primary Care Provider [facility], [place] Unavailable HUANG KEBEDE DO Primary Care Physician DANITA LUNA, SATNAM Cramer Attending Unavailable HUANG KEBEDE DO Primary Care Unavailable [facility], [place] Unavailable Preston Prado MD Primary Care Provider EVELYNE OTTO Referring Unavailable TALAMPAS, PRESTON D Primary Care Unavailable FAMEVELYNE Attending Unavailable TALAMPAS, PRESTON D Primary Care Unavailable FAM EVELYNE Referring Unavailable TALAMPAS, PRESTON D Primary Care Unavailable FAM EVELYNE Referring Unavailable TALAMPAS, PRESTON D Primary Care Unavailable FAM, ROSA Attending Unavailable TALAMPAS, PRESTON D Primary Care Unavailable FAM EVELYNE Referring Unavailable TALAMPAS, PRESTON D Primary Care Unavailable FAM EVELYNE Attending Unavailable TALAMPAS, PRESTON D Primary Care Unavailable FAM EVELYNE Attending Unavailable TALAMPAS, PRESTON D Primary Care Unavailable FAM EVELYNE Attending Unavailable TALAMPAS, PRESTON D Primary Care Unavailable Medications Current Medications Medication Drug Class(es) Dates Sig (Normalized) Sig (Original) benoxinate hydrochloride 4 mg/ml / fluorescein sodium 2.5 mg/ml ophthalmic solution (1 source) Diagnostic Dye Start: 01-28-2022 End: 01-28-2022 fluorescein-benoxi lesly 0.25-0.4 % 1 Drop (FLURESS) famotidine 40 mg oral tablet (1 source) Histamine-2 Receptor Antagonist Start: 03-28-2023 Pepcid 40 mg oral tablet Dose : 40 mg = 1 tab(s), Oral, Daily, # 30 tab(s), 0 Refill(s), Abdominal pain for 2 weeks Start Date: 03/28/23 Status: Ordered omeprazole 20 mg delayed release oral capsule (1 source) Proton Pump Inhibitor Start: 03-28-2023 omeprazole 20 mg oral delayed release capsule Dose : 20 mg = 1 cap(s), Oral, qDay, # 30 cap(s), 0 Refill(s) Start Date: 03/28/23 Status: Ordered ondansetron 4 mg oral tablet (1 source) Serotonin-3 Receptor Antagonist Start: 03-28-2023 End: 03-29-2023 Zofran 4 mg oral tablet Dose : 4 mg = 1 tab(s), PO, q8h, # 12 tab(s), 0 Refill(s), 03/29/23 17:40:00 EDT, Abdominal pain for 2 weeks Start Date: 03/28/23 Stop Date: 03/29/23 Status: Ordered phenylephrine hydrochloride 25 mg/ml ophthalmic solution (1 source) alpha-1 Adrenergic Agonist Start: 01-28-2022 End: 01-28-2022 PHENYLephrine 2.5 % 1 Drop (AK-DILATE, SINDHU-SYNEPHRINE) tropicamide 10 mg/ml ophthalmic solution (1 source) Anticholinergic Start: 01-28-2022 End: 01-28-2022 tropicamide 1 % 1 Drop (MYDRIACYL) Completed/Discontinued Medications Medication Drug Class(es) Dates Sig (Normalized) Sig (Original) amLODIPine 10 mg oral tablet (20 sources) Dihydropyridine Calcium Channel Jaimee Start: 08-01-2023 take 1 tablet by mouth once daily amLODIPine (NORVASC) 10 mg tablet Indications: Primary hypertension Take 1 tablet by mouth once daily. 30 tablet 3 08/01/2023 Active Problems Active Problems Problem Classification Problem Date Documented Date Episodic/Chronic Administrative/socia l admission (5 sources) Patient encounter status; Translations: [Dietary counseling and surveillance] Episodic Anxiety disorders (1 source) Anxiety 03-28-2014 Chronic Conduction disorders (12 sources) Incomplete right bundle branch block; Translations: [Unspecified right bundle-branch block] Onset: 08-30-2015 08-30-2015 Chronic Diabetes mellitus with complications (1 source) Type 2 diabetes mellitus; Translations: [Type 2 diabetes mellitus with moderate nonproliferative diabetic retinopathy without macular edema, bilateral] Chronic Diabetes mellitus without complication (20 sources) Type 2 diabetes mellitus without complication; Translations: [Type 2 diabetes mellitus without complications] Onset: 11-13-2016 07-05-2021 Chronic Essential hypertension (20 sources) Hypertensive disorder; Translations: [Essential (primary) hypertension] Onset: 04-22-2012 01-19-2014 Chronic Headache; including migraine (1 source) Migraine 04-06-2019 Chronic Mood disorders (2 sources) Bipolar disorder; Translations: [Depressive disorder] 04-06-2019 Chronic Nausea and vomiting (1 source) Chronic vomiting 03-15-2016 Episodic Osteoarthritis (1 source) Arthritis 10-01-2015 Chronic Other acquired deformities (1 source) Scoliosis deformity of spine 10-01-2015 Chronic Other connective tissue disease (2 sources) Mass of soft tissue; Translations: [Other specified soft tissue disorders] Episodic Other disorders of stomach and duodenum (20 sources) Gastroparesis syndrome; Translations: [Gastroparesis] Onset: 06-20-2021 06-20-2021 Episodic Other ear and sense organ disorders (1 source) Excessive cerumen in ear canal ; Translations: [Impacted cerumen, bilateral] Episodic Other ear and sense organ disorders (1 source) Impacted cerumen of bilateral ears; Translations: [Impacted cerumen, bilateral] 05-23-2023 Episodic Other injuries and conditions due to external causes (2 sources) Contusion; Translations: [Other injury of unspecified body region, initial encounter] Episodic Other male genital disorders (1 source) Pain in penis 06-12-2017 Chronic Other nutritional; endocrine; and metabolic disorders (20 sources) Morbid obesity; Translations: [Morbid (severe) obesity due to excess calories] Onset: 12-29-2014 12-29-2014 Chronic Other nutritional; endocrine; and metabolic disorders (2 sources) Obese class I; Translations: [Obesity, unspecified] Onset: 08-29-2023 08-29-2023 Chronic Residual codes; unclassified (20 sources) Obstructive sleep apnea syndrome; Translations: [Obstructive sleep apnea (adult) (pediatric)] Onset: 01-16-2016 01-16-2016 Chronic Past or Other Problems Problem Classification Problem Date Documented Date Episodic/Chronic Abdominal pain (10 sources) Abdominal pain; Translations: [Unspecified abdominal pain] Onset: 03-28-2023 Episodic Genitourinary symptoms and ill-defined conditions (20 sources) Lower urinary tract symptoms; Translations: [Unspecified symptoms and signs involving the genitourinary system] Onset: 11-25-2016 11-25-2016 Episodic Malaise and fatigue (20 sources) Physical deconditioning; Translations: [Other malaise] Onset: 08-09-2014 08-09-2014 Episodic Other aftercare (1 source) Encounter for therapeutic drug level monitoring; Translations: [Encounter for therapeutic drug monitoring] Onset: 07-04-2023 Episodic Other screening for suspected conditions (not mental disorders or infectious disease) (1 source) Encounter for screening for lipoid disorders; Translations: [Screening, lipid] Onset: 07-04-2023 Episodic Spondylosis; intervertebral disc disorders; other back problems (20 sources) Low back pain; Translations: [Lumbago] Onset: 05-18-2015 09-17-2021 Episodic Results Test Name Value Interpretation Reference Range Facil ity Vital Signs Date Time Vital Sign Value Performing Clinician Facility 08-29-2023 10:31-0500 Body weight 111.45 kg Evelyne Otto APRN.CNP Work Phone: [facility] 08-29-2023 10:31-0500 Diastolic blood pressure 88 mm[Hg] Evelyne Otto APRN.CNP Work Phone: [facility] 08-29-2023 10:31-0500 Heart rate 78 /min Evelyne Otto APRN.CNP Work Phone: [facility] 08-29-2023 10:31-0500 Respiratory rate 16 /min Evelyne Otto APRN.CNP Work Phone: [facility] 08-29-2023 10:31-0500 Systolic blood pressure 140 mm[Hg] Evelyne Fam VOLTAGE REGULATOR ASSEMBLER.SURVEY RESEARCHER Work Phone: [facility] 07-04-2023 11:14-0400 Diastolic blood pressure 114 mm[Hg] Evelyne Fam VOLTAGE REGULATOR ASSEMBLER.SURVEY RESEARCHER Work Phone: [facility] 07-04-2023 11:14-0400 Heart rate 77 /min Evelyne Fam VOLTAGE REGULATOR ASSEMBLER.SURVEY RESEARCHER Work Phone: [facility] 07-04-2023 11:14-0400 Systolic blood pressure 157 mm[Hg] Evelyne Fam VOLTAGE REGULATOR ASSEMBLER.SURVEY RESEARCHER Work Phone: [facility] 07-04-2023 10:52-0400 Body temperature 99.61 [degF] Evelyne Fam VOLTAGE REGULATOR ASSEMBLER.SURVEY RESEARCHER Work Phone: [facility] 07-04-2023 10:52-0400 Body weight 112.95 kg Evelyne Fam VOLTAGE REGULATOR ASSEMBLER.SURVEY RESEARCHER Work Phone: [facility] 07-04-2023 10:52-0400 Respiratory rate 18 /min Evelyne Fam VOLTAGE REGULATOR ASSEMBLER.SURVEY RESEARCHER Work Phone: [facility] 05-23-2023 09:39-0400 Diastolic blood pressure 100 mm[Hg] Evelyne Fam VOLTAGE REGULATOR ASSEMBLER.SURVEY RESEARCHER Work Phone: [facility] 05-23-2023 09:39-0400 Systolic blood pressure 150 mm[Hg] Evelyne Fam VOLTAGE REGULATOR ASSEMBLER.SURVEY RESEARCHER Work Phone: [facility] 05-23-2023 09:37-0400 Body weight 107.5 kg Evelyne Fam VOLTAGE REGULATOR ASSEMBLER.SURVEY RESEARCHER Work Phone: [facility] 05-23-2023 09:37-0400 Heart rate 103 /min Evelyne Fam VOLTAGE REGULATOR ASSEMBLER.SURVEY RESEARCHER Work Phone: [facility] 05-23-2023 09:37-0400 SaO2% (BldA) [Mass fraction] 98 % Evelyne Fam VOLTAGE REGULATOR ASSEMBLER.SURVEY RESEARCHER Work Phone: [facility] 03-28-2023 18:33-0400 Diastolic Blood Pressure Non-Invasive 92 1 SATNAM SAMAYOA MD [facility] 03-28-2023 18:33-0400 Heart rate 83 /min SATNAM SAMAYOA MD [facility] 03-28-2023 18:33-0400 Respiratory rate 16 /min SATNAM SAMAYOA MD [facility] 03-28-2023 18:33-0400 Systolic Blood Pressure Non-Invasive 139 1 SATNAM SAMAYOA MD [facility] 03-28-2023 17:32-0400 Diastolic Blood Pressure Non-Invasive 102 1 SATNAM SAMAYOA MD [facility] 03-28-2023 17:32-0400 Heart rate 84 /min SATNAM SAMAYOA MD [facility] 03-28-2023 17:32-0400 Respiratory rate 16 /min SATNAM SAMAYOA MD [facility] 03-28-2023 17:32-0400 Systolic Blood Pressure Non-Invasive 192 1 SATNAM SAMAYOA MD [facility] 03-28-2023 16:12-0400 Diastolic Blood Pressure Non-Invasive 115 1 SATNAM SAMAYOA MD [facility] 03-28-2023 16:12-0400 Heart rate 90 /min SATNAM SAMAYOA MD [facility] 03-28-2023 16:12-0400 Respiratory rate 16 /min SATNAM SAMAYOA MD [facility] 03-28-2023 16:12-0400 Systolic Blood Pressure Non-Invasive 191 1 SATNAM SAMAYOA MD [facility] 03-28-2023 15:11-0400 Body temperature 98.06 [degF] SATNAM SAMAYOA MD [facility] 03-28-2023 15:11-0400 Body weight 119.3 kg SATNAM SAMAYOA MD [facility] 06-10-2022 11:10-0400 Diastolic blood pressure 106 mm[Hg] Nasra Rice VOLTAGE REGULATOR ASSEMBLER.PHARMACIST IN CHARGE OWNER Work Phone: [facility] 06-10-2022 11:10-0400 Heart rate 73 /min Nasra Rice VOLTAGE REGULATOR ASSEMBLER.PHARMACIST IN CHARGE OWNER Work Phone: [facility] 06-10-2022 11:10-0400 Systolic blood pressure 153 mm[Hg] Nasra Rice VOLTAGE REGULATOR ASSEMBLER.PHARMACIST IN CHARGE OWNER Work Phone: [facility] 06-10-2022 11:06-0400 Body weight 126.55 kg Nasra Rice VOLTAGE REGULATOR ASSEMBLER.PHARMACIST IN CHARGE OWNER Work Phone: [facility] 06-10-2022 11:06-0400 Respiratory rate 16 /min Nasra Rice VOLTAGE REGULATOR ASSEMBLER.PHARMACIST IN CHARGE OWNER Work Phone: [facility] 05-23-2022 10:30-0400 Diastolic blood pressure 94 mm[Hg] Renee Older VOLTAGE REGULATOR ASSEMBLER.SURVEY RESEARCHER Work Phone: [facility] 05-23-2022 10:30-0400 Heart rate 68 /min Renee Older VOLTAGE REGULATOR ASSEMBLER.SURVEY RESEARCHER Work Phone: [facility] 05-23-2022 10:30-0400 Respiratory rate 16 /min Renee Older VOLTAGE REGULATOR ASSEMBLER.SURVEY RESEARCHER Work Phone: [facility] 05-23-2022 10:30-0400 Systolic blood pressure 132 mm[Hg] Renee Older VOLTAGE REGULATOR ASSEMBLER.SURVEY RESEARCHER Work Phone: [facility] 05-16-2022 10:58-0400 Body weight 124.29 kg Renee Older VOLTAGE REGULATOR ASSEMBLER.SURVEY RESEARCHER Work Phone: [facility] 05-16-2022 10:58-0400 Diastolic blood pressure 94 mm[Hg] Renee Older VOLTAGE REGULATOR ASSEMBLER.SURVEY RESEARCHER Work Phone: [facility] 05-16-2022 10:58-0400 Heart rate 72 /min Renee Older VOLTAGE REGULATOR ASSEMBLER.SURVEY RESEARCHER Work Phone: [facility] 05-16-2022 10:58-0400 Respiratory rate 16 /min Renee Older VOLTAGE REGULATOR ASSEMBLER.SURVEY RESEARCHER Work Phone: [facility] 05-16-2022 10:58-0400 Systolic blood pressure 158 mm[Hg] Renee Older VOLTAGE REGULATOR ASSEMBLER.SURVEY RESEARCHER Work Phone: [facility] 03-07-2022 10:16-0400 Body height 182.[address] Work Phone: [facility] 03-07-2022 10:16-0400 Body weight 127.[address] Work Phone: [facility] 02-20-2022 11:56-0400 Body height 182.9 cm Lionel Pressley MD Work Phone: [facility] 02-20-2022 11:56-0400 Body weight 127.46 kg Lionel Pressley MD Work Phone: [facility] 02-20-2022 11:56-0400 Diastolic blood pressure 90 mm[Hg] Lionel Pressley MD Work Phone: [facility] 02-20-2022 11:56-0400 Heart rate 79 /min Lionel Pressley MD Work Phone: [facility] 02-20-2022 11:56-0400 Systolic blood pressure 131 mm[Hg] Lionel Pressley MD Work Phone: [facility] 02-20-2022 11:32-0400 Diastolic blood pressure 90 mm[Hg] Anastacio Rosenbaum DO Work Phone: [facility] 02-20-2022 11:32-0400 Systolic blood pressure 131 mm[Hg] Anastacio Rosenbaum DO Work Phone: [facility] 02-20-2022 11:28-0400 Body height 182.9 cm Anastacio Rosenbaum DO Work Phone: [facility] 02-20-2022 11:28-0400 Body weight 127.46 kg Anastacio Rosenbaum DO Work Phone: [facility] 02-20-2022 11:28-0400 Heart rate 79 /min Anastacio Rosenbaum DO Work Phone: [facility] 02-20-2022 11:28-0400 Respiratory rate 18 /min Anastacio Rosenbaum DO Work Phone: [facility] 02-20-2022 11:28-0400 SaO2% (BldA) [Mass fraction] 98 % Anastacio Rosenbaum DO Work Phone: [facility] Encounters Encounter Date Encounter Type Care Provider Facility Start: 10-21-2023 End: 10-22-2023 ambulatory EVELYNE FAM Facility:[facility] Start: 10-21-2023 End: 10-21-2023 ambulatory EVELYNE FAM Facility:[facility] Start: 08-29-2023 End: 08-29-2023 ambulatory EVELYNE FAM Facility:[facility] Start: 08-29-2023 End: 08-29-2023 Patient encounter procedure Evelyne Fam VOLTAGE REGULATOR ASSEMBLER.SURVEY RESEARCHER Work Phone: [facility] [place] Procedures Date Procedure Procedure Detail Performing Clinician Start: 05-29-2023 Us retroperitoneal r eal time w/image complete Evelyne Fam VOLTAGE REGULATOR ASSEMBLER.SURVEY RESEARCHER Work Phone: Start: 05-23-2023 Urnls dip stick/tabl et rgnt auto w/o microscopy Evelyne Fam VOLTAGE REGULATOR ASSEMBLER.SURVEY RESEARCHER Work Phone: Start: 07-05-2021 Adult depression scr eening assessment Anastacio Rosenbaum DO Work Phone: Cholecystectomy SATNAM Bazan MD Elbow region structu re (body structure) SATNAM SAMAYOA MD Plan of Treatment Date Care Activity Detail Author Start: 08-29-2024 Annual PCP Team Research Chef frandy Disease Visit Annual PCP Team Chronic Disease Visit [facility] Start: 08-29-2024 Covid-19 Vaccine () Covid-19 Vaccine () [facility] Immunizations Immunization Date Immunization Notes Care Provider Priti manning 09-04-2020 influenza, injectabl e, quadrivalent, contains preservative Anastacio Rosenbaum DO Work Phone: [facility] 09-04-2020 influenza virus vaccine, unspecified formulation Evelyne Otto APRN.SURVEY RESEARCHER Work Phone: [facility] 07-16-2017 influenza, injectabl e, quadrivalent, preservative free Anastacio Rosenbaum DO Work Phone: [facility] Work Phone: 07-10-2014 tetanus and diphther ia toxoids, adsorbed, preservative free, for adult use (2 Lf of tetanus toxoid and 2 Lf of diphtheria toxoid) SATNAM SAMAYOA MD [facility] 05-11-2013 tetanus and diphther ia toxoids, not adsorbed, for adult use Anastacio Rosenbaum DO Work Phone: [facility] Work Phone: 05-11-2013 tetanus toxoid, redu gely diphtheria toxoid, and acellular pertussis vaccine, adsorbed Anastacio Rosenbaum DO Work Phone: [facility] Work Phone: 03-21-2006 tetanus toxoid, redu gely diphtheria toxoid, and acellular pertussis vaccine, adsorbed Anastacio Rosenbaum DO Work Phone: [facility] Work Phone: Payers Date Payer Category Payer Medicaid [id number] 2015 Medicaid [employer] [facility] [id number] 2015-Present [phone] [address] [place] [address] Medicaid [id number] 2015 Medicaid [id number] 1981 Unknown [id number] Social History Date Type Detail Facility Start: 01-19-2014 End: 06-10-2022 Tobacco smoking status NHIS Ex-smoker [facility] Work Phone: End: 12-31-2013 History of tobacco use Current smoker [facility] Work Phone: Start: 01-19-2014 End: 05-23-2023 Cigarettes smoked current (pack per day) - Reported 0.5 [facility] Work Phone: Start: 01-19-2014 End: 06-10-2022 Tobacco use and exposure Smokeless tobacco non-user [facility] Work Phone: Start: 10-30-2021 End: 08-29-2023 Alcohol intake Current non-drinker of alcohol (finding) [facility] Start: 1980 Sex Assigned At Male C [facility] Start: 10-03-2021 End: 06-10-2022 Exposure to SARS-CoV-2 (event) Not sure [facility] End: 12-31-2013 History of tobacco use Cigarette Smoker [facility] Work Phone: Start: 05-13-2022 End: 05-23-2022 Exposure to SARS-CoV-2 (event) Unable to assess [facility] Start: 05-23-2023 End: 07-04-2023 Tobacco use panel [facility] Work Phone: National Score (1-10 0), lower number is lower risk 87 [facility] Work Phone: Start: 09-19-2021 Gender identity Identifies as male gender (finding) [facility] Medical Equipment Procedure Code Equipment Code Equipment Origin al Text Equipment Identifier Dates Start: 12-05-2020 Functional Status Date Assessment Result Facility 03-28-2023 Functional Status Independent [facility] 03-28-2023 Functional Status Up to bathroom [facility] 03-28-2023 Functional Status Standard Safet y ID band on, Call device within reach, Bed in low position, Wheels locked, Phone within reach [facility] Mental Status Date Assessment Result Facility 03-28-2023 Mental Status Orientation Oriented x 4 [facility] 03-28-2023 [facility] Clinical Notes 04-19-2021 to 10-21-2023 Evelyne Otto APRN.SURVEY RESEARCHER - 08/29/2023 10:36 AM ESTTelephone Encounter - Berta Walker RN - 07/14/2023 8:19 AM Evelyne Tolliver APRN.CNP - 07/04/2023 10:48 AM EDTPatient Instructions Note Date & Type Note Facility 10-21-2023 Note HNO ID: [id number] Author: EVELYNE OTTO APRN.SURVEY RESEARCHER Service: ? Author Type: Nurse Practitioner Type: Progress Notes Filed: 10/21/2023 12:16 Note Text: SUBJECTIVE Anastacio Posey is a 42 year old male here today for a check up on his medical problems. Chief Complaint Patient presents with: Follow Up HPI Anastacio Posey is a 42 year old male here today for a check up on his diabetes and blood pressure. Blood pressure continues to be elevated. Still with some abdominal pain. Still in the same spot. Breakfast sandwich for am, fruit for lunch, pasta for supper. Food does not impact his pain. Constant pain. Reglan not helping much, no side effects. No constipation or diarrhea. He is not checking his sugars. He states he is taking his medication, he has not missed any doses per patient. Any low blood sugar reactions? No Denies increased urinating, eating, and drinking. Most recent HbA1c tests were: Lab Results Component Value Date HBA1C 11.1 (A) 10/21/2023 HBA1C 10.8 (H) 07/04/2023 HBA1C 7.6 (H) 02/20/2022 HBA1C 7.7 (H) 02/20/2022 His medications were reviewed today and his list is now up to date. Medications Current Outpatient Medications Medication Sig glimepiride (AMARYL) 4 mg tablet Take 1 tablet by mouth daily with breakfast. amLODIPine (NORVASC) 10 mg tablet Take 1 tablet by mouth once daily. lisinopril (ZESTRIL) 40 mg tablet Take 1 tablet by mouth once daily. metFORMIN (GLUCOPHAGE) 1,000 mg tablet Take 1 tablet by mouth two times a day with meals. Diabetes. DOSE CHANGE - TAKE ONE WITH BREAKFAST AND DINNER dicyclomine (BENTYL) 20 mg tablet Take 1 tablet by mouth before meals and at bedtime. blood sugar diagnostic (BLOOD GLUCOSE TEST) test strip Test blood sugar(s) 1x daily. Dx: Type 2 DM. Insulin: No empagliflozin (JARDIANCE) 25 mg tablet Take 1 tablet by mouth daily with breakfast. SITagliptin phosphate (JANUVIA) 100 mg tablet Take 1 tablet by mouth once daily. metoclopramide HCl (REGLAN) 10 mg tablet Take 1 tablet by mouth four times daily. atenolol (TENORMIN) 50 mg tablet Take 1 tablet by mouth once daily. Blood Pressure Monitor Use as directed. Lancets lancets Test blood sugar(s) 1x times daily. Dx: Type 2 DM - Uncontrolled E11.65 Insulin: No No current facility-administered medications for this visit. 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[facility]) (A priority) Comment: with auditory hallucinations, [facility] - 05/18/2015 (D priority) Comment: chronic Obesity, Class I, Bmi 30-34.9 - 08/29/2023 Gastroparesis - 06/20/2021 Lower Urinary Tract Symptoms (Luts) - 11/25/2016 Type 2 Diabetes Mellitus Without Complication, Without Long-Term Current Use of Insulin ([facility]) - 11/13/2016 Florian On Cpap - 01/16/2016 Morbid Obesity ([facility]) - 12/29/2014 Ddd (Degenerative Disc Disease), Lumbar - 11/09/2014 Physical Deconditioning - 08/09/2014 Lumbar Disc Herniation - 05/25/2014 Social History Tobacco Use Smoking status: Former Packs/day: 0.50 Years: 7.00 Additional pack years: 0.00 Total pack years: 3.50 Types: Cigarettes Quit date: 12/31/2013 Years since quittin.8 Smokeless tobacco: Never Substance Use Topics Alcohol use: No Drug use: No Review of Systems Respiratory: Negative. Cardiovascular: Negative. Gastrointestinal: Positive for abdominal pain. OBJECTIVE BP 168/109[je bp average[ Pulse 71 Temp 98.5 Resp 12 Ht 6' 0 (1.83m) Wt 250 lb (113.4kg) SpO2 98% BMI 33.90 kg/(m2). Physical Exam Vitals and nursing note reviewed. Constitutional: General: He is awake. He is not in acute distress. Appearance: Normal appearance. He is well-developed and well-groomed. He is not ill-appearing, toxic-appearing or diaphoretic. HENT: Head: Normocephalic. Right Ear: External ear normal. Left Ear: External ear normal. Nose: Nose normal. Eyes: General: Vision grossly intact. Conjunctiva/sclera: Conjunctivae normal. Pupils: Pupils are equal, round, and reactive to light. Neck: Vascular: No JVD. Trachea: Trachea normal. Cardiovascular: Rate and Rhythm: Normal rate and regular rhythm. Pulses: Normal pulses. Heart sounds: Normal heart sounds. No murmur heard. Pulmonary: Effort: Pulmonary effort is normal. No accessory muscle usage, prolonged expiration or respiratory distress. Breath sounds: Normal breath sounds. Abdominal: General: Bowel sounds are normal. Palpations: Abdomen is soft. Musculoskeletal: Cervical back: Neck supple. Skin: General: Skin is warm and dry. Capillary Refill: Capillary refill takes less than 2 seconds. Neurological: General: No focal deficit present. Mental Status: He is alert and oriented to person, place, and time. Mental status is at baseline. Psychiatric: Attention and Perception: Attention and perception normal. Mood and Affect: Mood and affect normal. (more content not included)... [facility] 08-29-2023 Note HNO ID: [id number] Author: Evelyne Otto APRN.SURVEY RESEARCHER Service: ? Author Type: Nurse Practitioner Type: Progress Notes Filed: 08/29/2023 12:38 PM Note Text: SUBJECTIVE Anastacio Posey is a 42 year old male here today for a check up on his medical problems. Chief Complaint Patient presents with: Follow Up: 4 weeks HPI Anastacio Posey is a 42 year old male. He is here today for follow up. A little emotional today, his step-mom recently . Not checking sugars the last week. No low blood sugar symptoms. Overall feeling okay. Abdominal pain still consistently. Not taking the reglan, no follow up with GI. His medications were reviewed today and his list is now up to date. Medications Current Outpatient Medications Medication Sig amLODIPine (NORVASC) 10 mg tablet Take 1 tablet by mouth once daily. lisinopril (ZESTRIL) 40 mg tablet Take 1 tablet by mouth once daily. metFORMIN (GLUCOPHAGE) 1,000 mg tablet Take 1 tablet by mouth two times a day with meals. Diabetes. DOSE CHANGE - TAKE ONE WITH BREAKFAST AND DINNER dicyclomine (BENTYL) 20 mg tablet Take 1 tablet by mouth before meals and at bedtime. SITagliptin (JANUVIA) 100 mg tablet Take 1 tablet by mouth once daily. empagliflozin (JARDIANCE) 25 mg tablet Take 1 tablet by mouth daily with breakfast. Blood Pressure Monitor Use as directed. blood sugar diagnostic (BLOOD GLUCOSE TEST) test strip Test blood sugar(s) 1x daily. Dx: Type 2 DM. Insulin: No Lancets lancets Test blood sugar(s) 1x times daily. Dx: Type 2 DM - Uncontrolled E11.65 Insulin: No glimepiride (AMARYL) 4 mg tablet Take 1 tablet by mouth daily with breakfast. metoclopramide HCl (REGLAN) 5 mg tablet Take 1 tablet by mouth four times daily. No current facility-administered medications for this visit. 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[facility]) (A priority) Comment: with auditory hallucinations, [facility] - 05/18/2015 (D priority) Comment: chronic Obesity, Class I, Bmi 30-34.9 - 08/29/2023 Gastroparesis - 06/20/2021 Lower Urinary Tract Symptoms (Luts) - 11/25/2016 Type 2 Diabetes Mellitus Without Complication, Without Long-Term Current Use of Insulin ([facility]) - 11/13/2016 Florian On Cpap - 01/16/2016 Morbid Obesity ([facility]) - 12/29/2014 Ddd (Degenerative Disc Disease), Lumbar - 11/09/2014 Physical Deconditioning - 08/09/2014 Lumbar Disc Herniation - 05/25/2014 Social History Tobacco Use Smoking status: Former Packs/day: 0.50 Years: 7.00 Additional pack years: 0.00 Total pack years: 3.50 Types: Cigarettes Quit date: 12/31/2013 Years since quittin.6 Smokeless tobacco: Never Substance Use Topics Alcohol use: No Drug use: No Review of Systems Respiratory: Negative. Cardiovascular: Negative. OBJECTIVE BP 140/88 Pulse 78 Resp 16 Wt 245 lb 11.2 oz (111.4kg) Physical Exam Vitals and nursing note reviewed. Constitutional: General: He is awake. He is not in acute distress. Appearance: Normal appearance. He is well-developed and well-groomed. He is not ill-appearing, toxic-appearing or diaphoretic. HENT: Head: Normocephalic. Right Ear: External ear normal. Left Ear: External ear normal. Nose: Nose normal. Eyes: General: Vision grossly intact. Conjunctiva/sclera: Conjunctivae normal. Pupils: Pupils are equal, round, and reactive to light. Neck: Vascular: No JVD. Trachea: Trachea normal. Cardiovascular: Rate and Rhythm: Normal rate and regular rhythm. Pulses: Normal pulses. Heart sounds: Normal heart sounds. No murmur heard. Pulmonary: Effort: Pulmonary effort is normal. No accessory muscle usage, prolonged expiration or respiratory distress. Breath sounds: Normal breath sounds. Musculoskeletal: Cervical back: Neck supple. Skin: General: Skin is warm and dry. Capillary Refill: Capillary refill takes less than 2 seconds. Neurological: General: No focal deficit present. Mental Status: He is alert and oriented to person, place, and time. Mental status is at baseline. Psychiatric: Attention and Perception: Attention and perception normal. Mood and Affect: Mood and affect normal. Speech: Speech normal. Behavior: Behavior normal. Behavior is cooperative. Thought Content: Thought content normal. Cognition and Memory: Cognition and memory normal. Judgment: Judgment normal. ASSESSMENT/PLAN: 1. Type 2 diabetes mellitus without complication, without long-term current use of insulin (HCC) - ICD9: 250.00, ICD10: E11.9 (primary diagnosis) - Uncontrolled - Continue current medications - Increase glimepiride - Counseled on healthy diet and regular exercise - Discussed need for and benefit of weight loss. BMI 33.32 kg/(m2) - GLIMEPIRIDE 4 MG TABLET - HGB A1C 2. Primary hypertension - ICD9: 401.9, ICD10: I10 - Improving control - Continue current medications - Recommend ho (more content not included)... [facility] 08-29-2023 History of Presen t illness Narrative SUBJECTIVE Anastacio Posey is a 42 year old male here today for a check up on his medical problems. Chief Complaint Patient presents with: Follow Up: 4 weeks HPI Anastacio Posey is a 42 year old male. He is here today for follow up. A little emotional today, his step-mom recently . Not checking sugars the last week. No low blood sugar symptoms. Overall feeling okay. Abdominal pain still consistently. Not taking the reglan, no follow up with GI. His medications were reviewed today and his list is now up to date. Medications Current Outpatient Medications Medication Sig amLODIPine (NORVASC) 10 mg tablet Take 1 tablet by mouth once daily. lisinopril (ZESTRIL) 40 mg tablet Take 1 tablet by mouth once daily. metFORMIN (GLUCOPHAGE) 1,000 mg tablet Take 1 tablet by mouth two times a day with meals. Diabetes. DOSE CHANGE - TAKE ONE WITH BREAKFAST AND DINNER dicyclomine (BENTYL) 20 mg tablet Take 1 tablet by mouth before meals and at bedtime. SITagliptin (JANUVIA) 100 mg tablet Take 1 tablet by mouth once daily. empagliflozin (JARDIANCE) 25 mg tablet Take 1 tablet by mouth daily with breakfast. Blood Pressure Monitor Use as directed. blood sugar diagnostic (BLOOD GLUCOSE TEST) test strip Test blood sugar(s) 1x daily. Dx: Type 2 DM. Insulin: No Lancets lancets Test blood sugar(s) 1x times daily. Dx: Type 2 DM - Uncontrolled E11.65 Insulin: No glimepiride (AMARYL) 4 mg tablet Take 1 tablet by mouth daily with breakfast. metoclopramide HCl (REGLAN) 5 mg tablet Take 1 tablet by mouth four times daily. No current facility-administered medications for this visit. 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[facility]) (A priority) Comment: with auditory hallucinations, [facility] - 05/18/2015 (D priority) Comment: chronic Obesity, Class I, Bmi 30-34.9 - 08/29/2023 Gastroparesis - 06/20/2021 Lower Urinary Tract Symptoms (Luts) - 11/25/2016 Type 2 Diabetes Mellitus Without Complication, Without Long-Term Current Use of Insulin ([facility]) - 11/13/2016 Florian On Cpap - 01/16/2016 Morbid Obesity ([facility]) - 12/29/2014 Ddd (Degenerative Disc Disease), Lumbar - 11/09/2014 Physical Deconditioning - 08/09/2014 Lumbar Disc Herniation - 05/25/2014 Social History Tobacco Use Smoking status: Former Packs/day: 0.50 Years: 7.00 Additional pack years: 0.00 Total pack years: 3.50 Types: Cigarettes Quit date: 12/31/2013 Years since quittin.6 Smokeless tobacco: Never Substance Use Topics Alcohol use: No Drug use: No Review of Systems Respiratory: Negative. Cardiovascular: Negative. OBJECTIVE BP 140/88 Pulse 78 Resp 16 Wt 245 lb 11.2 oz (111.4kg) Physical Exam Vitals and nursing note reviewed. Constitutional: General: He is awake. He is not in acute distress. Appearance: Normal appearance. He is well-developed and well-groomed. He is not ill-appearing, toxic-appearing or diaphoretic. HENT: Head: Normocephalic. Right Ear: External ear normal. Left Ear: External ear normal. Nose: Nose normal. Eyes: General: Vision grossly intact. Conjunctiva/sclera: Conjunctivae normal. Pupils: Pupils are equal, round, and reactive to light. Neck: Vascular: No JVD. Trachea: Trachea normal. Cardiovascular: Rate and Rhythm: Normal rate and regular rhythm. Pulses: Normal pulses. Heart sounds: Normal heart sounds. No murmur heard. Pulmonary: Effort: Pulmonary effort is normal. No accessory muscle usage, prolonged expiration or respiratory distress. Breath sounds: Normal breath sounds. Musculoskeletal: Cervical back: Neck supple. Skin: General: Skin is warm and dry. Capillary Refill: Capillary refill takes less than 2 seconds. Neurological: General: No focal deficit present. Mental Status: He is alert and oriented to person, place, and time. Mental status is at baseline. Psychiatric: Attention and Perception: Attention and perception normal. Mood and Affect: Mood and affect normal. Speech: Speech normal. Behavior: Behavior normal. Behavior is cooperative. Thought Content: Thought content normal. Cognition and Memory: Cognition and memory normal. Judgment: Judgment normal. ASSESSMENT/PLAN: 1. Type 2 diabetes mellitus without complication, without long-term current use of insulin (HCC) - ICD9: 250.00, ICD10: E11.9 (primary diagnosis) - Uncontrolled - Continue current medications - Increase glimepiride - Counseled on healthy diet and regular exercise - Discussed need for and benefit of weight loss. BMI 33.32 kg/(m^2) - GLIMEPIRIDE 4 MG TABLET - HGB A1C 2. Primary hypertension - ICD9: 401.9, ICD10: I10 - Improving control - Continue current medications - Recommend home blood pressure monitoring, to bring results to next visit - Encouraged sodium restriction, DASH or Mediterranean diet - Recommend regular aerobic exercise 3. Gastroparesis - ICD9: 536.3, ICD10: K31.84 Try Reglan 3-4 times daily. - METOCLOPRAMIDE 5 MG TABLET 4. Obesity, Class I, BMI 30-34.9 - ICD9: 278.00, ICD10: E66.9 5. Encounter for therapeutic drug monitoring - ICD9: V58.83, ICD10: Z51.81 - HGB A1C - CBC + DIFF - COMP METABOLIC PANEL Portions of this note have been entered by ancillary staff. I have reviewed and when necessary edited, so that they are an adequate record of my encounter with this patient Please note that parts of this document were created using voice recognition software and therefore may contain grammatical errors. Patient verbalizes understanding of instructions from today's visit and in agreement with treatment plan. Questions answered. Agrees to call the office if questions, concerns of issues with acute symptoms not improving or if they worsen. See diagnoses and orders for additional plan(s). Allergies and medications were reviewed, list was updated, and refills given if needed. Past medical, surgical, social, and family history reviewed and updated as appropriate. Encouraged proper diet & exercise as well as compliance with taking medications. Age-appropriate health preventative measures were discussed. Return in about 2 months (around 10/30/2023) for Follow up on chronic conditions and medications.. Evelyne Otto APRN-HAMILTON documented in this encounter [facility] 08-01-2023 Note HNO ID: [id number] Author: Evelyne Otto APRN.CNP Service: ? Author Type: Nurse Practitioner Type: Progress Notes Filed: 08/01/2023 12:33 PM Note Text: SUBJECTIVE Anastacio Posey is a 42 year old male here today for a check up on his medical problems. Chief Complaint Patient presents with: Recheck HPI Anastacio Posey is a 42 year old male. Here today for follow up HTN, abdominal pain, gastroparesis, DM. Had to cancel with GI. Went to ER due to vomiting, nothing noted in ER. Has not rescheduled. His hgba1c was up with last labs. Blood pressure is still elevated some also. His medications were reviewed today and his list is now up to date. Medications Current Outpatient Medications Medication Sig lisinopril (ZESTRIL) 40 mg tablet Take 1 tablet by mouth once daily. metFORMIN (GLUCOPHAGE) 1,000 mg tablet Take 1 tablet by mouth two times a day with meals. Diabetes. DOSE CHANGE - TAKE ONE WITH BREAKFAST AND DINNER dicyclomine (BENTYL) 20 mg tablet Take 1 tablet by mouth before meals and at bedtime. SITagliptin (JANUVIA) 100 mg tablet Take 1 tablet by mouth once daily. empagliflozin (JARDIANCE) 25 mg tablet Take 1 tablet by mouth daily with breakfast. amLODIPine (NORVASC) 10 mg tablet Take 1 tablet by mouth once daily. metoclopramide HCl (REGLAN) 5 mg tablet Take 1 tablet by mouth four times daily. glimepiride (AMARYL) 2 mg tablet Take 1 tablet by mouth daily with breakfast. Blood Pressure Monitor Use as directed. blood sugar diagnostic (BLOOD GLUCOSE TEST) test strip Test blood sugar(s) 1x daily. Dx: Type 2 DM. Insulin: No Lancets lancets Test blood sugar(s) 1x times daily. Dx: Type 2 DM - Uncontrolled E11.65 Insulin: No No current facility-administered medications for this visit. 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[facility]) (A priority) Comment: with auditory hallucinations, [facility] - 05/18/2015 (D priority) Comment: chronic Gastroparesis - 06/20/2021 Lower Urinary Tract Symptoms (Luts) - 11/25/2016 Type 2 Diabetes Mellitus Without Complication, Without Long-Term Current Use of Insulin ([facility]) - 11/13/2016 Florian On Cpap - 01/16/2016 Morbid Obesity ([facility]) - 12/29/2014 Ddd (Degenerative Disc Disease), Lumbar - 11/09/2014 Physical Deconditioning - 08/09/2014 Lumbar Disc Herniation - 05/25/2014 Social History Tobacco Use Smoking status: Former Packs/day: 0.50 Years: 7.00 Additional pack years: 0.00 Total pack years: 3.50 Types: Cigarettes Quit date: 12/31/2013 Years since quittin.5 Smokeless tobacco: Never Substance Use Topics Alcohol use: No Drug use: No Review of Systems Respiratory: Negative. Cardiovascular: Negative. Gastrointestinal: Positive for abdominal pain, nausea and vomiting. Negative for anal bleeding, blood in stool, constipation, diarrhea and rectal pain. OBJECTIVE BP 158/104 Pulse 97 Wt 247 lb (112.0kg) SpO2 98% Physical Exam Vitals and nursing note reviewed. Constitutional: General: He is awake. He is not in acute distress. Appearance: Normal appearance. He is well-developed and well-groomed. He is not ill-appearing, toxic-appearing or diaphoretic. HENT: Head: Normocephalic. Right Ear: External ear normal. Left Ear: External ear normal. Nose: Nose normal. Eyes: General: Vision grossly intact. Conjunctiva/sclera: Conjunctivae normal. Pupils: Pupils are equal, round, and reactive to light. Neck: Vascular: No JVD. Trachea: Trachea normal. Cardiovascular: Rate and Rhythm: Normal rate and regular rhythm. Pulses: Normal pulses. Heart sounds: Normal heart sounds. No murmur heard. Pulmonary: Effort: Pulmonary effort is normal. No accessory muscle usage, prolonged expiration or respiratory distress. Breath sounds: Normal breath sounds. Musculoskeletal: Cervical back: Neck supple. Skin: General: Skin is warm and dry. Capillary Refill: Capillary refill takes less than 2 seconds. Neurological: General: No focal deficit present. Mental Status: He is alert and oriented to person, place, and time. Mental status is at baseline. Psychiatric: Attention and Perception: Attention and perception normal. Mood and Affect: Mood and affect normal. Speech: Speech normal. Behavior: Behavior normal. Behavior is cooperative. Thought Content: Thought content normal. Cognition and Memory: Cognition and memory normal. Judgment: Judgment normal. ASSESSMENT/PLAN: 1. Gastroparesis - ICD9: 536.3, ICD10: K31.84 (primary diagnosis) Can try Reglan but really needs to follow up with GI either with [facility] or outside facility. - METOCLOPRAMIDE 5 MG TABLET - CONSULT TO GASTROENTEROLOGY 2. Lower abdominal pain - ICD9: 789.09, ICD10: R10.30 3. Primary hypertension - ICD9: 401.9, ICD10: I10 - Uncontrolled - Increase amlodipine - Recommend home blood pressure monitoring, to bring results (more content not included)... [facility] 07-14-2023 Miscellaneous Notes Patient having severe vomiting with severe abdominal pain. Patient is a diabetic- taking 3 diabetic medications, unable to keep down and unable to check BS- does not have a meter. Patient having dry lips and NEW and hasn't eaten for 2 days. Unable to keep liquids down. Protocol recommends ER now or pcp triage. Patient agreeable to ER. will drive him. Reason for Disposition [1] SEVERE vomiting (e.g., 6 or more times/day) AND [2] present > 8 hours (Exception: Patient sounds well, is drinking liquids, does not sound dehydrated, and vomiting has lasted less than 24 hours.) Answer Assessment - Initial Assessment Questions 1. VOMITING SEVERITY: Started vomiting last night, so far 6 times. Woke up from sleep to vomit, then goes back to sleep. Last time vomited 8:44 am- yellow. Patient didn't eat dinner last night b/c he was nauseous. Patient has not eaten in 2 days. Unable to take diabetic medications- last a1c 10 days ago was high. Reports had rice and sausage the day before- patient reports last ate food on Friday. Reports patient has diabetes and takes medication for it and does not check his blood sugar at home. 2. ONSET: Around 7 pm last night 3. FLUIDS: Vomit is pure liquid- red the 1st time, now yellow with pinkish in it. 4. ABDOMEN PAIN: reports patient having pain below naval for a while now. Patient states the pain is 9/10- reports he is able to walk. reports patient looks pale. 5. DIARRHEA: Patient states not having diarrhea. Last BM a couple days ago. 6. CONTACTS: No 7. CAUSE: Patient thinks it's related to abdominal pain. Reports he is having abdominal pain right now 06/01. 8. HYDRATION STATUS: Dry mouth. No dizziness or weakness when stands up. Headache. Last urinated couple hours ago. 9. OTHER SYMPTOMS: Fever unknown. Is a diabetic and taking 3 blood sugar medications. Blood sugar unknown- does not have a meter. Does have mild NEW in middle of forehead. Vomit is liquid- 1st time red, now yellow orange. Had dry heaves a couple times after vomited. 10. : N/A. Protocols used: [id number] documented in this encounter [facility] 07-04-2023 Note HNO ID: [id number] Author: Evelyne Otto APRN.SURVEY RESEARCHER Service: ? Author Type: Nurse Practitioner Type: Progress Notes Filed: 07/04/2023 12:50 PM Note Text: SUBJECTIVE Anastacio Posey is a 42 year old male here today for a check up on his medical problems. Chief Complaint Patient presents with: Recheck: Abdominal pain HPI Anastacio Posey is a 42 year old male. Still having pain. Rates it 06/01. Still to lower abdomen. No nausea or vomiting. No constipation or diarrhea. No blood in stool. Does not get worse with peeing. Appetite is still not great, feels like he cannot eata full meal. Weight up from last visit. Prior gastric emptying study showed very severe gastroparesis. Blood pressure up, has not missed any doses of medication. His medications were reviewed today and his list is now up to date. Medications Current Outpatient Medications Medication Sig amLODIPine (NORVASC) 5 mg tablet Take 1 tablet by mouth once daily. Blood Pressure Monitor Use as directed. blood sugar diagnostic (BLOOD GLUCOSE TEST) test strip Test blood sugar(s) 1x daily. Dx: Type 2 DM. Insulin: No dicyclomine (BENTYL) 20 mg tablet Take 1 tablet by mouth before meals and at bedtime. empagliflozin (JARDIANCE) 25 mg tablet Take 1 tablet by mouth daily with breakfast. Lancets lancets Test blood sugar(s) 1x times daily. Dx: Type 2 DM - Uncontrolled E11.65 Insulin: No lisinopril (ZESTRIL) 40 mg tablet Take 1 tablet by mouth once daily. metFORMIN (GLUCOPHAGE) 1,000 mg tablet Take 1 tablet by mouth two times a day with meals. Diabetes. DOSE CHANGE - TAKE ONE WITH BREAKFAST AND DINNER SITagliptin (JANUVIA) 100 mg tablet Take 1 tablet by mouth once daily. No current facility-administered medications for this visit. 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[facility]) (A priority) Comment: with auditory hallucinations, [facility] - 05/18/[facility] (D priority) Comment: chronic Gastroparesis - 06/20/2021 Lower Urinary Tract Symptoms (Luts) - 11/25/2016 Type 2 Diabetes Mellitus Without Complication, Without Long-Term Current Use of Insulin ([facility]) - 11/13/2016 Florian On Cpap - 01/16/2016 Morbid Obesity ([facility]) - 12/29/2014 Ddd (Degenerative Disc Disease), Lumbar - 11/09/2014 Physical Deconditioning - 08/09/2014 Lumbar Disc Herniation - 05/25/2014 Social History Tobacco Use Smoking status: Former Packs/day: 0.50 Years: 7.00 Additional pack years: 0.00 Total pack years: 3.50 Types: Cigarettes Quit date: 12/31/2013 Years since quittin.5 Smokeless tobacco: Never Substance Use Topics Alcohol use: No Drug use: No Review of Systems Respiratory: Negative. Cardiovascular: Negative. Gastrointestinal: Positive for abdominal pain. Negative for anal bleeding, blood in stool, constipation, diarrhea, nausea, rectal pain and vomiting. OBJECTIVE BP 157/114[BP Je average[ Pulse 77 Temp 99.6 Resp 18 Wt 249 lb (112.9kg) Physical Exam Vitals and nursing note reviewed. Constitutional: General: He is awake. He is not in acute distress. Appearance: Normal appearance. He is well-developed and well-groomed. He is not ill-appearing, toxic-appearing or diaphoretic. HENT: Head: Normocephalic. Right Ear: External ear normal. Left Ear: External ear normal. Nose: Nose normal. Eyes: General: Vision grossly intact. Conjunctiva/sclera: Conjunctivae normal. Pupils: Pupils are equal, round, and reactive to light. Neck: Vascular: No JVD. Trachea: Trachea normal. Cardiovascular: Rate and Rhythm: Normal rate and regular rhythm. Pulses: Normal pulses. Heart sounds: Normal heart sounds. No murmur heard. Pulmonary: Effort: Pulmonary effort is normal. No accessory muscle usage, prolonged expiration or respiratory distress. Breath sounds: Normal breath sounds. Abdominal: General: Bowel sounds are normal. Tenderness: There is abdominal tenderness in the suprapubic area. There is no guarding or rebound. Negative signs include Orantes's sign, Rovsing's sign and McBurney's sign. Musculoskeletal: Cervical back: Neck supple. Skin: General: Skin is warm and dry. Capillary Refill: Capillary refill takes less than 2 seconds. Neurological: General: No focal deficit present. Mental Status: He is alert and oriented to person, place, and time. Mental status is at baseline. Psychiatric: Attention and Perception: Attention and perception normal. Mood and Affect: Mood and affect normal. Speech: Speech normal. Behavior: Behavior normal. Behavior is cooperative. Thought Content: Thought content normal. Cognition and Memory: Cognition and memory normal. Judgment: Judgment normal. ASSESSMENT/PLAN: 1. Primary hypertension - ICD9: 401.9, ICD10: I10 (primary diagnosis) - Uncontrolled - Continue current medications - Increase lisinopril - Recommend home blood pressure monitoring, (more content not included)... [facility] 07-04-2023 History of Presen t illness Narrative SUBJECTIVE Anastacio Posey is a 42 year old male here today for a check up on his medical problems. Chief Complaint Patient presents with: Recheck: Abdominal pain HPI Anastacio Posey is a 42 year old male. Still having pain. Rates it 9/10. Still to lower abdomen. No nausea or vomiting. No constipation or diarrhea. No blood in stool. Does not get worse with peeing. Appetite is still not great, feels like he cannot eata full meal. Weight up from last visit. Prior gastric emptying study showed very severe gastroparesis. Blood pressure up, has not missed any doses of medication. His medications were reviewed today and his list is now up to date. Medications Current Outpatient Medications Medication Sig amLODIPine (NORVASC) 5 mg tablet Take 1 tablet by mouth once daily. Blood Pressure Monitor Use as directed. blood sugar diagnostic (BLOOD GLUCOSE TEST) test strip Test blood sugar(s) 1x daily. Dx: Type 2 DM. Insulin: No dicyclomine (BENTYL) 20 mg tablet Take 1 tablet by mouth before meals and at bedtime. empagliflozin (JARDIANCE) 25 mg tablet Take 1 tablet by mouth daily with breakfast. Lancets lancets Test blood sugar(s) 1x times daily. Dx: Type 2 DM - Uncontrolled E11.65 Insulin: No lisinopril (ZESTRIL) 40 mg tablet Take 1 tablet by mouth once daily. metFORMIN (GLUCOPHAGE) 1,000 mg tablet Take 1 tablet by mouth two times a day with meals. Diabetes. DOSE CHANGE - TAKE ONE WITH BREAKFAST AND DINNER SITagliptin (JANUVIA) 100 mg tablet Take 1 tablet by mouth once daily. No current facility-administered medications for this visit. 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[facility]) (A priority) Comment: with auditory hallucinations, [facility] (D priority) Comment: chronic Gastroparesis - 06/20/2021 Lower Urinary Tract Symptoms (Luts) - 11/25/2016 Type 2 Diabetes Mellitus Without Complication, Without Long-Term Current Use of Insulin ([facility]) - 11/13/2016 Florian On Cpap - 01/16/2016 Morbid Obesity ([facility]) - 12/29/2014 Ddd (Degenerative Disc Disease), Lumbar - 11/09/2014 Physical Deconditioning - 08/09/2014 Lumbar Disc Herniation - 05/25/2014 Social History Tobacco Use Smoking status: Former Packs/day: 0.50 Years: 7.00 Additional pack years: 0.00 Total pack years: 3.50 Types: Cigarettes Quit date: 12/31/2013 Years since quittin.5 Smokeless tobacco: Never Substance Use Topics Alcohol use: No Drug use: No Review of Systems Respiratory: Negative. Cardiovascular: Negative. Gastrointestinal: Positive for abdominal pain. Negative for anal bleeding, blood in stool, constipation, diarrhea, nausea, rectal pain and vomiting. OBJECTIVE BP 157/114[BP Je average[ Pulse 77 Temp 99.6 Resp 18 Wt 249 lb (112.9kg) Physical Exam Vitals and nursing note reviewed. Constitutional: General: He is awake. He is not in acute distress. Appearance: Normal appearance. He is well-developed and well-groomed. He is not ill-appearing, toxic-appearing or diaphoretic. HENT: Head: Normocephalic. Right Ear: External ear normal. Left Ear: External ear normal. Nose: Nose normal. Eyes: General: Vision grossly intact. Conjunctiva/sclera: Conjunctivae normal. Pupils: Pupils are equal, round, and reactive to light. Neck: Vascular: No JVD. Trachea: Trachea normal. Cardiovascular: Rate and Rhythm: Normal rate and regular rhythm. Pulses: Normal pulses. Heart sounds: Normal heart sounds. No murmur heard. Pulmonary: Effort: Pulmonary effort is normal. No accessory muscle usage, prolonged expiration or respiratory distress. Breath sounds: Normal breath sounds. Abdominal: General: Bowel sounds are normal. Tenderness: There is abdominal tenderness in the suprapubic area. There is no guarding or rebound. Negative signs include Orantes's sign, Rovsing's sign and McBurney's sign. Musculoskeletal: Cervical back: Neck supple. Skin: General: Skin is warm and dry. Capillary Refill: Capillary refill takes less than 2 seconds. Neurological: General: No focal deficit present. Mental Status: He is alert and oriented to person, place, and time. Mental status is at baseline. Psychiatric: Attention and Perception: Attention and perception normal. Mood and Affect: Mood and affect normal. Speech: Speech normal. Behavior: Behavior normal. Behavior is cooperative. Thought Content: Thought content normal. Cognition and Memory: Cognition and memory normal. Judgment: Judgment normal. ASSESSMENT/PLAN: 1. Primary hypertension - ICD9: 401.9, ICD10: I10 (primary diagnosis) - Uncontrolled - Continue current medications - Increase lisinopril - Recommend home blood pressure monitoring, to bring results to next visit - Encouraged sodium restriction, DASH or Mediterranean diet - Recommend regular aerobic exercise - LISINOPRIL 40 MG TABLET - AMLODIPINE 5 MG TABLET 2. Gastroparesis - ICD9: 536.3, ICD10: K31.84 Prior gastric emptying study showed severe gastroparesis - CONSULT TO GASTROENTEROLOGY 3. Lower abdominal pain - ICD9: 789.09, ICD10: R10.30 This is a medial/lower abdominal pain but no urinary etiology identified with CT scan, ultrasound and urine dip. He does have decreased appetite and the history of gastroparesis so GI etiology is suspected. - CONSULT TO GASTROENTEROLOGY - CONSULT TO GENERAL SURGERY 4. Abdominal cramping - ICD9: 789.00, ICD10: R10.9 See #3 - CONSULT TO GASTROENTEROLOGY - CONSULT TO GENERAL SURGERY - DICYCLOMINE 20 MG TABLET 5. Type 2 diabetes mellitus without complication, without long-term current use of insulin (HCC) - ICD9: 250.00, ICD10: E11.9 - METFORMIN 1,000 MG TABLET - COMP METABOLIC PANEL - HGB A1C - LIPID PANEL, NONFASTING 6. Encounter for therapeutic drug monitoring - ICD9: V58.83, ICD10: Z51.81 - CBC + DIFF - COMP METABOLIC PANEL - HGB A1C 7. Screening, lipid - ICD9: V77.91, ICD10: Z13.220 - LIPID PANEL, NONFASTING Portions of this note have been entered by ancillary staff. I have reviewed and when necessary edited, so that they are an adequate record of my encounter with this patient Please note that parts of this document were created using voice recognition software and therefore may contain grammatical errors. Patient verbalizes understanding of instructions from today's visit and in agreement with treatment plan. Questions answered. Agrees to call the office if questions, concerns of issues with acute symptoms not improving or if they worsen. See diagnoses and orders for additional plan(s). Allergies and medications were reviewed, list was updated, and refills given if needed. Past medical, surgical, social, and family history reviewed and updated as appropriate. Encouraged proper diet & exercise as well as compliance with taking medications. Age-appropriate health preventative measures were discussed. Return in about 4 weeks (around 08/01/2023) for follow up on blood pressure. AAKASH Landeros documented in this encounter [facility] 05-29-2023 Note HNO ID: [id number] Author: Carito Campbell RDMS Service: ? Author Type: Guide Dog Instructor Type: Progress Notes Filed: 05/29/2023 11:10 AM Note Text: Radiology Service Progress Note PATIENT NAME: Anastacio Posey DATE OF SERVICE: May 29, 2023 TIME: 11:09 AM PATIENT IDENTITY VERIFICATION COMPLETED USING TWO (2) IDENTIFIERS: Name and Date of confirmed by patient verbally. FALL SCREENING: Has the patient had 2 falls in the last year or 1 fall with injury or currently using an Ambulatory Assistive Device (Walker, Cane, Wheelchair, Crutches, etc.)? No PATIENT GENDER DATA: Male PATIENT RELEVANT IMPLANT DATA REVIEWED: Not Applicable RADIOLOGY DEPARTMENT: Ultrasound PERIPHERAL IV DATA: Not applicable SIGNED BY: Carito Campbell RDMS RVT May 29, 2023 11:09 AM [facility] 05-29-2023 History of Presen t illness Narrative Radiology Service Progress Note PATIENT NAME: Anastacio Posey DATE OF SERVICE: May 29, 2023 TIME: 11:09 AM PATIENT IDENTITY VERIFICATION COMPLETED USING TWO (2) IDENTIFIERS: Name and Date of confirmed by patient verbally. FALL SCREENING: Has the patient had 2 falls in the last year or 1 fall with injury or currently using an Ambulatory Assistive Device (Walker, Cane, Wheelchair, Crutches, etc.)? No PATIENT GENDER DATA: Male PATIENT RELEVANT IMPLANT DATA REVIEWED: Not Applicable RADIOLOGY DEPARTMENT: Ultrasound PERIPHERAL IV DATA: Not applicable SIGNED BY: Carito Campbell RDMS RVT May 29, 2023 11:09 AM documented in this encounter [facility] 05-23-2023 Note HNO ID: [id number] Author: Evelyne Otto APRN.SURVEY RESEARCHER Service: ? Author Type: Nurse Practitioner Type: Progress Notes Filed: 05/23/2023 1:02 PM Note Text: SUBJECTIVE Anastacio Posey is a 42 year old male here today for a check up on his medical problems. Chief Complaint Patient presents with: ER F/U: [facility] ER 05/19/2023 for abdominal pain with vomiting Ear Problem: trouble hearing out of ears and question serum impaction HPI Anastacio Posey is a 42 year old male. Here today for ER follow up. Seen in [facility] ER on 05/19 for abdominal pain and vomiting. CT scan that was normal per patient. ER gave some medication to help with stomach issues and nausea medication. Reglan. [place]. 4-5 years with abdominal pain and issues. Saw general surgery, sent to [facility] for possible hernia near belly button. Nausea is better. No vomiting. Appetite is okay. Feels full fast. Prior gastroparesis diagnosis. No bowel changes, no blood in stool. Low abdominal, suprapubic pain. Had a urine test in the ER. Denies any changes in urination. Has diabetes. Also notes fullness in his ears. Concerns of wax build up. His medications were reviewed today and his list is now up to date. Medications Current Outpatient Medications Medication Sig lisinopril (ZESTRIL, PRINIVIL) 20 mg tablet Take 1 tablet by mouth once daily. amLODIPine (NORVASC) 5 mg tablet Take 1 tablet by mouth once daily. metFORMIN (GLUCOPHAGE) 1,000 mg tablet Take 1 tablet by mouth twice daily with meals. Diabetes. DOSE CHANGE - TAKE ONE WITH BREAKFAST AND DINNER SITagliptin (JANUVIA) 100 mg tablet Take 1 tablet by mouth once daily. empagliflozin (JARDIANCE) 25 mg tablet Take 1 tablet by mouth daily with breakfast. dicyclomine (BENTYL) 10 mg capsule Take 1 capsule by mouth three times daily as needed. Blood Pressure Monitor Use as directed. blood sugar diagnostic (BLOOD GLUCOSE TEST) test strip Test blood sugar(s) 1x daily. Dx: Type 2 DM. Insulin: No Lancets lancets Test blood sugar(s) 1x times daily. Dx: Type 2 DM - Uncontrolled E11.65 Insulin: No No current facility-administered medications for this visit. 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[facility]) (A priority) Comment: with auditory hallucinations, [facility] - 05/18/2015 (D priority) Comment: chronic Gastroparesis - 06/20/2021 Lower Urinary Tract Symptoms (Luts) - 11/25/2016 Type 2 Diabetes Mellitus Without Complication, Without Long-Term Current Use of Insulin ([facility]) - 11/13/2016 Florian On Cpap - 01/16/2016 Morbid Obesity ([facility]) - 12/29/2014 Ddd (Degenerative Disc Disease), Lumbar - 11/09/2014 Physical Deconditioning - 08/09/2014 Lumbar Disc Herniation - 05/25/2014 Social History Tobacco Use Smoking status: Former Packs/day: 0.50 Years: 7.00 Additional pack years: 0.00 Total pack years: 3.50 Types: Cigarettes Quit date: 12/31/2013 Years since quittin.3 Smokeless tobacco: Never Substance Use Topics Alcohol use: No Drug use: No Review of Systems Respiratory: Negative. Cardiovascular: Negative. Gastrointestinal: Positive for abdominal pain, nausea and vomiting. Negative for abdominal distention, anal bleeding, blood in stool, constipation, diarrhea and rectal pain. Genitourinary: Positive for frequency. Negative for dysuria, flank pain and hematuria. OBJECTIVE BP 150/100 Pulse 103 Wt 237 lb (107.5kg) SpO2 98% Physical Exam Vitals and nursing note reviewed. Constitutional: General: He is awake. He is not in acute distress. Appearance: Normal appearance. He is well-developed and well-groomed. He is not ill-appearing, toxic-appearing or diaphoretic. HENT: Head: Normocephalic. Right Ear: External ear normal. Left Ear: External ear normal. Ears: Comments: Bilateral canals with moderate amount of soft appearing light yellow cerumen, removed successful with ear curette. Nose: Nose normal. Eyes: General: Vision grossly intact. Conjunctiva/sclera: Conjunctivae normal. Pupils: Pupils are equal, round, and reactive to light. Neck: Vascular: No JVD. Trachea: Trachea normal. Cardiovascular: Rate and Rhythm: Normal rate and regular rhythm. Pulses: Normal pulses. Heart sounds: Normal heart sounds. No murmur heard. Pulmonary: Effort: Pulmonary effort is normal. No accessory muscle usage, prolonged expiration or respiratory distress. Breath sounds: Normal breath sounds. Abdominal: General: Abdomen is flat. Bowel sounds are normal. Palpations: Abdomen is soft. There is no shifting dullness, fluid wave, hepatomegaly, splenomegaly, mass or pulsatile mass. Tenderness: There is abdominal tenderness in the suprapubic area. There is no right CVA tenderness, left CVA tenderness, guarding or rebound. Negative signs include Orantes's sign, Rovsing's sign and McBurney's sign. Musculoskeletal: Cervical back: Neck supple. (more content not included)... [facility] 05-23-2023 History of Presen t illness Narrative SUBJECTIVE Anastacio Posey is a 42 year old male here today for a check up on his medical problems. Chief Complaint Patient presents with: ER F/U: [facility] ER 05/19/2023 for abdominal pain with vomiting Ear Problem: trouble hearing out of ears and question serum impaction HPI Anastacio Posey is a 42 year old male. Here today for ER follow up. Seen in [facility] ER on 05/19 for abdominal pain and vomiting. CT scan that was normal per patient. ER gave some medication to help with stomach issues and nausea medication. Regsumi. [place]. 4-5 years with abdominal pain and issues. Saw general surgery, sent to [facility] for possible hernia near belly button. Nausea is better. No vomiting. Appetite is okay. Feels full fast. Prior gastroparesis diagnosis. No bowel changes, no blood in stool. Low abdominal, suprapubic pain. Had a urine test in the ER. Denies any changes in urination. Has diabetes. Also notes fullness in his ears. Concerns of wax build up. His medications were reviewed today and his list is now up to date. Medications Current Outpatient Medications Medication Sig lisinopril (ZESTRIL, PRINIVIL) 20 mg tablet Take 1 tablet by mouth once daily. amLODIPine (NORVASC) 5 mg tablet Take 1 tablet by mouth once daily. metFORMIN (GLUCOPHAGE) 1,000 mg tablet Take 1 tablet by mouth twice daily with meals. Diabetes. DOSE CHANGE - TAKE ONE WITH BREAKFAST AND DINNER SITagliptin (JANUVIA) 100 mg tablet Take 1 tablet by mouth once daily. empagliflozin (JARDIANCE) 25 mg tablet Take 1 tablet by mouth daily with breakfast. dicyclomine (BENTYL) 10 mg capsule Take 1 capsule by mouth three times daily as needed. Blood Pressure Monitor Use as directed. blood sugar diagnostic (BLOOD GLUCOSE TEST) test strip Test blood sugar(s) 1x daily. Dx: Type 2 DM. Insulin: No Lancets lancets Test blood sugar(s) 1x times daily. Dx: Type 2 DM - Uncontrolled E11.65 Insulin: No No current facility-administered medications for this visit. 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[facility]) (A priority) Comment: with auditory hallucinations, [facility] - 05/18/2015 (D priority) Comment: chronic Gastroparesis - 06/20/2021 Lower Urinary Tract Symptoms (Luts) - 11/25/2016 Type 2 Diabetes Mellitus Without Complication, Without Long-Term Current Use of Insulin ([facility]) - 11/13/2016 Florian On Cpap - 01/16/2016 Morbid Obesity ([facility]) - 12/29/2014 Ddd (Degenerative Disc Disease), Lumbar - 11/09/2014 Physical Deconditioning - 08/09/2014 Lumbar Disc Herniation - 05/25/2014 Social History Tobacco Use Smoking status: Former Packs/day: 0.50 Years: 7.00 Additional pack years: 0.00 Total pack years: 3.50 Types: Cigarettes Quit date: 12/31/2013 Years since quittin.3 Smokeless tobacco: Never Substance Use Topics Alcohol use: No Drug use: No Review of Systems Respiratory: Negative. Cardiovascular: Negative. Gastrointestinal: Positive for abdominal pain, nausea and vomiting. Negative for abdominal distention, anal bleeding, blood in stool, constipation, diarrhea and rectal pain. Genitourinary: Positive for frequency. Negative for dysuria, flank pain and hematuria. OBJECTIVE BP 150/100 Pulse 103 Wt 237 lb (107.5kg) SpO2 98% Physical Exam Vitals and nursing note reviewed. Constitutional: General: He is awake. He is not in acute distress. Appearance: Normal appearance. He is well-developed and well-groomed. He is not ill-appearing, toxic-appearing or diaphoretic. HENT: Head: Normocephalic. Right Ear: External ear normal. Left Ear: External ear normal. Ears: Comments: Bilateral canals with moderate amount of soft appearing light yellow cerumen, removed successful with ear curette. Nose: Nose normal. Eyes: General: Vision grossly intact. Conjunctiva/sclera: Conjunctivae normal. Pupils: Pupils are equal, round, and reactive to light. Neck: Vascular: No JVD. Trachea: Trachea normal. Cardiovascular: Rate and Rhythm: Normal rate and regular rhythm. Pulses: Normal pulses. Heart sounds: Normal heart sounds. No murmur heard. Pulmonary: Effort: Pulmonary effort is normal. No accessory muscle usage, prolonged expiration or respiratory distress. Breath sounds: Normal breath sounds. Abdominal: General: Abdomen is flat. Bowel sounds are normal. Palpations: Abdomen is soft. There is no shifting dullness, fluid wave, hepatomegaly, splenomegaly, mass or pulsatile mass. Tenderness: There is abdominal tenderness in the suprapubic area. There is no right CVA tenderness, left CVA tenderness, guarding or rebound. Negative signs include Orantes's sign, Rovsing's sign and McBurney's sign. Musculoskeletal: Cervical back: Neck supple. Skin: General: Skin is warm and dry. Capillary Refill: Capillary refill takes less than 2 seconds. Neurological: General: No focal deficit present. Mental Status: He is alert and oriented to person, place, and time. Mental status is at baseline. Psychiatric: Attention and Perception: Attention and perception normal. Mood and Affect: Mood and affect normal. Speech: Speech normal. Behavior: Behavior normal. Behavior is cooperative. Thought Content: Thought content normal. Cognition and Memory: Cognition and memory normal. Judgment: Judgment normal. ASSESSMENT/PLAN: 1. Acute suprapubic pain - ICD9: 789.09, 338.19, ICD10: R10.2 (primary diagnosis) His pain is located to his suprapubic area, discussed possible etiologies include but not limited to a bladder issue, large intestine or abdominal wall. No palpable lumps or masses so low suspicion for this being hernia related. Suspect more a bladder pathology given the location. Will give dicyclomine to see if helpful for the cramping pain but also this may be more a bladder spasm. Check urine dip. Check labs and bladder/kidney ultrasound. - UA DIP B/O - ALBUMIN/CREAT RATIO RND UR - CBC + DIFF - COMP METABOLIC PANEL - DICYCLOMINE 10 MG CAPSULE - US KIDNEY/BLADDER 2. Abdominal cramping - ICD9: 789.00, ICD10: R10.9 See #1 - UA DIP B/O - ALBUMIN/CREAT RATIO RND UR - CBC + DIFF - COMP METABOLIC PANEL - DICYCLOMINE 10 MG CAPSULE - US KIDNEY/BLADDER 3. Bilateral impacted cerumen - ICD9: 380.4, ICD10: H61.23 Removed cerumen, pt tolerated well. Tms clear I spent a total of 30 minutes on the date of the service which included preparing to see the patient, [id number] patient care, completing clinical documentation, obtaining and/or reviewing separately obtained history, performing a medically appropriate examination, counseling and educating the patient/family/caregiver, ordering medications, tests, or procedures, communicating with other HCPs (not separately reported), independently interpreting results (not separately reported), communicating results to the patient/family/caregiver, and care coordination (not separately reported). Portions of this note have been entered by ancillary staff. I have reviewed and when necessary edited, so that they are an adequate record of my encounter with this patient Please note that parts of this document were created using voice recognition software and therefore may contain grammatical errors. Patient verbalizes understanding of instructions from today's visit and in agreement with treatment plan. Questions answered. Agrees to call the office if questions, concerns of issues with acute symptoms not improving or if they worsen. See diagnoses and orders for additional plan(s). Allergies and medications were reviewed, list was updated, and refills given if needed. Past medical, surgical, social, and family history reviewed and updated as appropriate. Encouraged proper diet & exercise as well as compliance with taking medications. Age-appropriate health preventative measures were discussed. Return if symptoms worsen or fail to improve, for Keep next scheduled appointment.. AAKASH Landeros documented in this encounter [facility] 03-28-2023 Hospital Discharg e instructions Patient Education 03/28/2023 17:43:02 Diabetes with High Blood Sugar Diabetes with High Blood Sugar You have been treated for high blood sugar (hyperglycemia). This may be because of an infection or other illness. Or it may be from eating too many sweets or starches. Or it may be from not taking enough insulin or other diabetes medicine. Home care Check your blood sugar level at least 2 times a day. Write it down the results. Do this before breakfast and before dinner. If you take insulin, also write down your routine insulin dose. Note any other doses you needed based on your sliding scale or as advised by your healthcare provider. Do this for the next 3 to 5 days. High blood sugar may cause symptoms that you can learn to spot. These include: Peeing often Thirst Headache Breath that smells fruity Nausea or vomiting Belly pain If you have symptoms of high blood sugar, use a blood or urine test to find out what your blood sugar level is. If it is above your usual range, use the sliding scale regular insulin dose from your healthcare provider. Call your provider for advice if you were not given a range for your insulin dose. If your blood sugar is over 240 mg/dL, check your urine for ketones. Follow-up care Follow up with your healthcare provider, or as advised. You may need to meet with your provider in the next week. You will likely look at your blood sugar records together. You may need to change your dose of insulin or other diabetes medicine. When to seek medical advice Call your healthcare provider right away if these occur: Symptoms of high blood sugar that don't get better with the treatment your provider advised. This is especially true if you also have ketones in your urine. Blood sugar over 300 mg/dl. If you can t reach your healthcare provider, go to a hospital emergency room or urgent care center. Call 911 Call 911 if you have any of the following: Confusion Dizziness, lightheadedness, or loss of consciousness Shortness of breath Chest pain Weakness of an arm, leg, or one side of the face Sudden trouble with speech or vision [phone] [email or web address]. [address] [place] [id number]. All rights reserved. This information is not intended as a substitute for professional medical care. Always follow your healthcare professional's instructions. 03/28/2023 17:42:49 High Blood Pressure, Established, Out of Control Uncontrolled High Blood Pressure (Established) Your blood pressure was unusually high today. This can occur if you ve missed doses of your blood pressure medicine. Or it can happen if you are taking other medicines. These include some asthma inhalers, decongestants, diet pills, and street drugs like cocaine and amphetamine. Other causes include: Weight gain More salt in your diet Smoking Caffeine Your blood pressure can also rise if you are emotionally upset or in intense pain. It may go back to normal after a period of rest. Blood pressure measurements are given as 2 numbers. Systolic blood pressure is the upper number. This is the pressure when the heart contracts. Diastolic blood pressure is the lower number. This is the pressure when the heart relaxes between beats. You will see your blood pressure readings written together. For example, a person with a systolic pressure of 118 and a diastolic pressure of 78 will have 118/78 written in the medical record. To be high blood pressure, the numbers must be higher when tested over a period of time. Blood pressure is categorized as normal, elevated, or stage 1 or stage 2 high blood pressure: Normal blood pressure is systolic of less than 120 and diastolic of less than 80 (120/80) Elevated blood pressure is systolic of 120 to 129 and diastolic less than 80 Stage 1 high blood pressure is systolic is 130 to 139 or diastolic between 80 to 89 Stage 2 high blood pressure is when systolic is 140 or higher or the diastolic is 90 or higher Uncontrolled high blood pressure can cause serious health problems. It raises your risk for heart attack, stroke, and heart failure. In general, if you have high blood pressure, keeping your blood pressure below 130/80 mmHg may help prevent these problems. Your healthcare provider may prescribe medicine to help control blood pressure if lifestyle changes are not enough. Home care It s important to take steps to lower your blood pressure. If you are taking blood pressure medicine, the guidelines below may help you need less or no medicines in the future. Start a weight-loss program if you are overweight. Cut back on the amount of salt in your diet: oAvoid high-salt foods like olives, pickles, smoked meats, and salted potato chips. oDon t add salt to your food at the table. oUse only small amounts of salt when cooking. Start an exercise program. Talk with your healthcare provider about what exercise program is best for you. It doesn t have to be difficult. Even brisk walking for 20 minutes 3 times a week is a good form of exercise. Avoid medicines that stimulates the heart. This includes many amrl-gsf-axkcasm cold and sinus decongestant pills and sprays, as well as diet pills. Check the warnings about high blood pressure on the label. Before purchasing any szje-blr-pyzxzmn medicines or supplements, always ask the pharmacist about the product's potential interaction with your high blood pressure and your medicines. Stimulants such as amphetamine or cocaine could be lethal for someone with high blood pressure. Never take these. Limit how much caffeine you drink. Or switch to noncaffeinated beverages. Stop smoking. If you are a long-time smoker, this can be hard. Enroll in a stop-smoking program to make it more likely that you will succeed. Talk with your provider about ways to quit. Learn how to handle stress better. This is an important part of any program to lower blood pressure. Learn ways to relax. These include meditation, yoga, and biofeedback. If medicines were prescribed, take them exactly as directed. Missing doses may cause your blood pressure to get out of control. If you miss a dose or doses of your medicines, check with your healthcare provider or pharmacist about what to do. Consider buying an automatic blood pressure machine. Your provider may recommend a certain type. You can get one of these at most pharmacies. Measure your blood pressure twice a day, in the morning, and in the late afternoon. Keep a written record of your home blood pressure readings and take the record to your medical appointments. Here are some additional guidelines on home blood pressure monitoring from the [place] [employer]. Don't smoke or drink coffee for 30 minutes Go to the bathroom before the test. Relax for 5 minutes before taking the measurement. Sit correctly. Be sure your back is supported. Don't sit on a couch or soft chair. Uncross your feet and place them flat on the floor. Place your arm on a solid, flat surface like a table with the upper arm at heart level. Make certain the middle of the cuff is directly above the bend of the elbow. Check the monitor's instruction manual for an illustration. Take multiple readings. When you measure, take 2 or 3 readings one minute apart and record all of the results. Take your blood pressure at the same time every day, or as your healthcare provider recommends. Record the date, time, and blood pressure reading. Take the record with you to your next appointment. If your blood pressure monitor has a built-in memory, simply take the monitor with you to your next appointment. Call your provider if you have several high readings. Don't be frightened by a single high reading, but if you get several high readings, check in with your healthcare provider. Note: When blood pressure reaches a systolic (top number) of 180 or higher or a diastolic (bottom number) of 110 or higher, emergency medical treatment is required. Call your healthcare provider immediately. Follow-up care Regular visits to your own healthcare provider for blood pressure and medicine checks are an important part of your care. Make a follow-up appointment as directed. Bring the record of your home blood pressure readings to the appointment. When to seek medical advice Call your healthcare provider right away if any of these occur: Blood pressure reaches a systolic (top number) of 180 or higher or diastolic (bottom number) of 110 or higher, emergency medical treatment is required. Chest, arm, shoulder, neck, or upper back pain Shortness of breath Severe headache Throbbing or rushing sound in the ears Nosebleed Extreme drowsiness, confusion, or fainting Dizziness or dizziness with spinning sensation (vertigo) Weakness in an arm or leg or on one side of the face Trouble speaking or seeing [id number] [employer]. [address] [place] [address], [place] [address]. All rights reserved. This information is not intended as a substitute for professional medical care. Always follow your healthcare professional's instructions. 03/28/2023 17:40:34 Abdominal Pain, Unknown Cause, (Male) Unknown Causes of Abdominal Pain (Male) Based on your visit today, the exact cause of your abdominal pain is not clear. Your exam and tests don't suggest a dangerous cause at this time. However, the signs of a serious problem may take more time to appear. Although your evaluation was reassuring today, sometimes early in the course of many conditions, exam and lab tests can appear normal. Therefore, it is important for you to watch for any new symptoms or worsening of your condition. It may not be obvious what caused your symptoms. Pay attention to things that do seem to make your symptoms worse or better and discuss this with your doctor when you follow up. The evaluation of abdominal pain in the emergency department may only require an exam by the doctor or it may include blood, urine or imaging studies, depending on many factors. Sometimes exams and tests can identify a cause but in many cases, a clear cause is not found. Further testing at follow up visits may help to suggest a clear diagnosis. Home care Rest as much as you can until your next exam. Try to avoid any medicines (unless otherwise directed by your doctor), foods, activities, or other factors that may have contributed to your symptoms. Try to eat foods that you know that you have tolerated well in the past. Certain diets may be recommended for some conditions that cause abdominal pain. However, since the cause of your symptoms may not be clear, discuss your diet more with your healthcare provider or specialist for further recommendations. If you have diarrhea, it may help to avoid dairy (lactose) for the time being. A low fat, low fiber diet can also help. Eating several small meals per day as opposed to 2 or 3 larger meals may help. Avoid dehydration. Make sure to drink plenty of water. Other options include broth, soup, gelatin, sports drinks, or other clear liquids. Watch closely for anything that may make your symptoms worse or better. Pay close attention to symptoms below that may mean your condition is getting worse. Follow-up care Follow up with your healthcare provider if your symptoms are not improving, or as advised. In some cases, you may need more testing. When to seek medical advice Call your healthcare provider right away if any of these occur: Pain is becoming worse You are unable to take your medicines or can't keep water down due to excessive vomiting Swelling of the abdomen Fever of 100.4 F (38 C) or higher, or as directed by your healthcare provider Blood in vomit or bowel movements (dark red or black color) Jaundice (yellow color of eyes and skin) New onset of weakness, dizziness or fainting New onset of chest, arm, back, neck or jaw pain [id number] [employer]. [address] [place] [address], [place] [address]. All rights reserved. This information is not intended as a substitute for professional medical care. Always follow your healthcare professional's instructions. Follow Up Care 03/28/2023 15:12:20 With:HUANG KEBEDE DO Address: [address] [place] [phone] When:2-4 days With:Go to emergency room if symptoms worsen Address:Unknown When:2-4 days [facility] 03-28-2023 Note Discharge Instructions Thank you for allowing [facility] to assist you with your healthcare needs. The following is important discharge information regarding your hospital visit. Diagnosis from Today's Visit Abdominal pain for 2 weeks Abdominal pain What to Do Next Instructions from Your Care Team Clear liquid diet. Advance as tolerated. Monitor blood sugars. Follow-up with your doctor. Return if worse. No qualifying data available. Post Acute Orders No qualifying data available. You Need to Schedule the Following Appointments Follow Up with HUANG KEBEDE DO When Within 2-4 days Where: [address] [place] [phone] Follow Up with Go to emergency room if symptoms worsen When Within 2-4 days Allergies NKA Medications Please ask your primary doctor or pharmacist before taking any other medication not listed, including over the counter drugs, herbal medications, vitamins and or supplements as they may interact with your home medications. What How Much When Why Instructions Last Dose New famotidine (Pepcid 40 mg oral tablet) 1 tab(s) by mouth Every day Abdominal pain for 2 weeks Printed Prescription 6p New ondansetron (Zofran 4 mg oral tablet) 1 tab(s) by mouth Every 8 hours Abdominal pain for 2 weeks Printed Prescription 4p Unchanged amLODIPine (amLODIPine 5 mg oral tablet) 1 tab(s) by mouth Once a day Unchanged lisinopril (lisinopril 20 mg oral tablet) 1 tab(s) by mouth Once a day Unchanged metFORMIN (metFORMIN 500 mg oral tablet) 2 tab(s) by mouth Two (2) times a day Unchanged omeprazole (omeprazole 20 mg oral delayed release capsule) 1 cap by mouth Once a day Unchanged SITagliptin (Januvia 100 mg oral tablet) 1 tab(s) by mouth Once a day Please take this list to your next doctor s visit. Bring all medications you take, including over the counter medications, herbals and other supplements with you to your doctor s visit. Patients and families are reminded to discard old lists and to update any records with all medication providers or retail pharmacies. Medication Leaflets ondansetron (oral) (on NEVA se ronna) Elbert Boswell Zuplenz What is the most important information I should know about ondansetron? You should not use ondansetron if you are also using apomorphine (Apokyn). What is ondansetron? Ondansetron blocks the actions of chemicals in the body that can trigger nausea and vomiting. Ondansetron is used to prevent nausea and vomiting that may be caused by surgery, cancer chemotherapy, or radiation treatment. Ondansetron may be used for purposes not listed in this medication guide. What should I discuss with my health care provider before taking ondansetron? You should not use ondansetron if: you are also using apomorphine (Apokyn); or you are allergic to ondansetron or similar medicines (dolasetron, granisetron, palonosetron). To make sure ondansetron is safe for you, tell your doctor if you have: liver disease; an electrolyte imbalance (such as low levels of potassium or magnesium in your blood); congestive heart failure, slow heartbeats; a personal or family history of long QT syndrome; or a blockage in your digestive tract (stomach or intestines). Ondansetron is not expected to harm an unborn baby. Tell your doctor if you are . It is not known whether ondansetron passes into breast milk or if it could harm a nursing baby. Tell your doctor if you are breast-feeding a baby. Ondansetron is not approved for use by anyone younger than 4 years old. Ondansetron orally disintegrating tablets may contain phenylalanine. Tell your doctor if you have phenylketonuria (PKU). How should I take ondansetron? Follow all directions on your prescription label. Do not take this medicine in larger or smaller amounts or for longer than recommended. Ondansetron can be taken with or without food. The first dose of ondansetron is usually taken before the start of your surgery, chemotherapy, or radiation treatment. Follow your doctor's dosing instructions very carefully. Take the ondansetron regular tablet with a full glass of water. To take the orally disintegrating tablet (Zofran ODT): Keep the tablet in its blister pack until you are ready to take it. Open the package and peel back the foil. Do not push a tablet through the foil or you may damage the tablet. Use dry hands to remove the tablet and place it in your mouth. Do not swallow the tablet whole. Allow it to dissolve in your mouth without chewing. Swallow several times as the tablet dissolves. To use ondansetron oral soluble film (strip) (Zuplenz): Keep the strip in the foil pouch until you are ready to use the medicine. Using dry hands, remove the strip and place it on your tongue. It will begin to dissolve right away. Do not swallow the strip whole. Allow it to dissolve in your mouth without chewing. Swallow several times after the strip dissolves. If desired, you may drink liquid to help swallow the dissolved strip. Wash your hands after using Zuplenz. Measure liquid medicine with the dosing syringe provided, or with a special dose-measuring spoon or medicine cup. If you do not have a dose-measuring device, ask your pharmacist for one. Store at room temperature away from moisture, heat, and light. Store liquid medicine in an upright position. What happens if I miss a dose? Take the missed dose as soon as you remember. Skip the missed dose if it is almost time for your next scheduled dose. Do not take extra medicine to make up the missed dose. What happens if I overdose? Seek emergency medical attention or call the Poison Help line at . Overdose symptoms may include sudden loss of vision, severe constipation, feeling light-headed, or fainting. What should I avoid while taking ondansetron? Ondansetron may impair your thinking or reactions. Be careful if you drive or do anything that requires you to be alert. What are the possible side effects of ondansetron? Get emergency medical help if you have signs of an allergic reaction: rash, hives; fever, chills, difficult breathing; swelling of your face, lips, tongue, or throat. Call your doctor at once if you have: severe constipation, stomach pain, or bloating; headache with chest pain and severe dizziness, fainting, fast or pounding heartbeats; fast or pounding heartbeats; jaundice (yellowing of the skin or eyes); blurred vision or temporary vision loss (lasting from only a few minutes to several hours); high levels of serotonin in the body--agitation, hallucinations, fever, fast heart rate, overactive reflexes, nausea, vomiting, diarrhea, loss of coordination, fainting. Common side effects may include: diarrhea or constipation; headache; drowsiness; or tired feeling. This is not a complete list of side effects and others may occur. Call your doctor for medical advice about side effects. You may report side effects to FDA at 3-358-WAB-8115. What other drugs will affect ondansetron? Ondansetron can cause a serious heart problem, especially if you use certain medicines at the same time, including antibiotics, antidepressants, heart rhythm medicine, antipsychotic medicines, and medicines to treat cancer, malaria, HIV or AIDS. Tell your doctor about all medicines you use, and those you start or stop using during your treatment with ondansetron. Taking ondansetron while you are using certain other medicines can cause high levels of serotonin to build up in your body, a condition called 'serotonin syndrome,' which can be fatal. Tell your doctor if you also use: medicine to treat depression; medicine to treat a psychiatric disorder; a narcotic (opioid) medication; or medicine to prevent nausea and vomiting. This list is not complete and many other drugs can interact with ondansetron. This includes prescription and prot-hvt-ljthdnj medicines, vitamins, and herbal products. Give a list of all your medicines to any healthcare provider who treats you. Where can I get more information? Your pharmacist can provide more information about ondansetron. Remember, keep this and all other medicines out of the reach of children, never share your medicines with others, and use this medication only for the indication prescribed. Every effort has been made to ensure that the information provided by [employer]. ('[employer]') is accurate, up-to-date, and complete, but no guarantee is made to that effect. Drug information contained herein may be time sensitive. [employer] information has been compiled for use by healthcare practitioners and consumers in the [place] and therefore [employer] does not warrant that uses outside of the [place] are appropriate, unless specifically indicated otherwise. [employer] drug information does not endorse drugs, diagnose patients or recommend therapy. [employer] drug information is an informational resource designed to assist licensed healthcare practitioners in caring for their patients and/or to serve consumers viewing this service as a supplement to, and not a substitute for, the expertise, skill, knowledge and judgment of healthcare practitioners. The absence of a warning for a given drug or drug combination in no way should be construed to indicate that the drug or drug combination is safe, effective or appropriate for any given patient. [employer] does not assume any responsibility for any aspect of healthcare administered with the aid of information [employer] provides. The information contained herein is not intended to cover all possible uses, directions, precautions, warnings, drug interactions, allergic reactions, or adverse effects. If you have questions about the drugs you are taking, check with your doctor, nurse or pharmacist. Copyright 9752-6202 [employer]. Version: 13.01. Revision Date: 07/12/2016. famotidine (oral/injection) (fam [place] ti ray) Heartburn Relief, Leader Acid Manager Integrated, Pepcid, Pepcid AC, Pepcid AC Maximum Strength, Zantac 360 What is the most important information I should know about famotidine? Follow all directions on the label and package. Use exactly as directed. What is famotidine? Famotidine is used to treat and prevent ulcers in the stomach and intestines. It also treats conditions in which the stomach produces too much acid, such as Riddhi-Choudhury syndrome. Famotidine also treats gastroesophageal reflux disease (GERD) and other conditions in which acid backs up from the stomach into the esophagus, causing heartburn. The Zantac 360 brand of this medicine does not contain ranitidine, a medicine that was withdrawn from market in the [place]. Famotidine may also be used for purposes not listed in this medication guide. What should I discuss with my healthcare provider before taking famotidine? Heartburn can feel like a heart attack. Get emergency medical help if you have chest pain that spreads to your jaw or shoulder. You should not use this medicine if you are allergic to famotidine or similar medicines such as ranitidine (Zantac), cimetidine (Tagamet), or nizatidine (Axid). Ask a doctor or pharmacist if this medicine is safe to use if you have: kidney disease; liver disease; cancer stomach; or long QT syndrome (in you or a family member). Ask a doctor before using this medicine if you are or . How should I take famotidine? Use exactly as directed on the label, or as prescribed by your doctor. Famotidine oral is taken by mouth. Famotidine injection is given in a vein if you are unable to take the medicine by mouth. You may take famotidine oral with or without food. Measure liquid medicine with the supplied syringe or a dose-measuring device (not a kitchen spoon). Most ulcers heal within 4 weeks of famotidine treatment, but it may take up to 8 weeks of using this medicine before your ulcer heals. Keep using the medication as directed. Call your doctor if the condition you are treating with famotidine does not improve, or if it gets worse while using famotidine. Your treatment may also include changes in diet or lifestyle habits. Follow all instructions of your doctor or dietitian. Store at room temperature away from moisture, heat, and light. Do not allow the liquid medicine to freeze. Throw away any unused famotidine liquid that is older than 30 days. What happens if I miss a dose? Take the medicine as soon as you can, but skip the missed dose if it is almost time for your next dose. Do not take two doses at one time. What happens if I overdose? Seek emergency medical attention or call the Poison Help line at . What should I avoid while taking famotidine? Drinking alcohol may increase the risk of damage to your stomach. Avoid taking other stomach acid reducers unless your doctor has told you to. However, you may take an antacid (such as Maalox, Mylanta, Gaviscon, Milk of Magnesia, Rolaids, or Tums) with famotidine. What are the possible side effects of famotidine? Get emergency medical help if you have signs of an allergic reaction: hives; difficult breathing; swelling of your face, lips, tongue, or throat. Stop using famotidine and call your doctor at once if you have: confusion, hallucinations, agitation, lack of energy; a seizure; fast or pounding heartbeats, sudden dizziness (like you might pass out); or unexplained muscle pain, tenderness, or weakness especially if you also have fever, unusual tiredness, and dark colored urine. Some side effects may be more likely in older adults and in people who have severe kidney disease. Common side effects may include: headache; dizziness; or constipation or diarrhea. This is not a complete list of side effects and others may occur. Call your doctor for medical advice about side effects. You may report side effects to FDA at 1-844-BKX-8479. What other drugs will affect famotidine? Famotidine oral can make it harder for your body to absorb other medicines you take by mouth. Tell your doctor if you are taking: cefditoren; dasatinib; delavirdine; fosamprenavir; or tizanidine (if you are taking famotidine liquid). This list is not complete. Other drugs may affect famotidine, including prescription and ewlg-zrz-stvhiea medicines, vitamins, and herbal products. Not all possible drug interactions are listed here. Where can I get more information? Your doctor or pharmacist can provide more information about famotidine. Remember, keep this and all other medicines out of the reach of children, never share your medicines with others, and use this medication only for the indication prescribed. Every effort has been made to ensure that the information provided by [employer]. ('[employer]') is accurate, up-to-date, and complete, but no guarantee is made to that effect. Drug information contained herein may be time sensitive. [employer] information has been compiled for use by healthcare practitioners and consumers in the [place] and therefore [employer] does not warrant that uses outside of the [place] are appropriate, unless specifically indicated otherwise. [employer] drug information does not endorse drugs, diagnose patients or recommend therapy. [employer] drug information is an informational resource designed to assist licensed healthcare practitioners in caring for their patients and/or to serve consumers viewing this service as a supplement to, and not a substitute for, the expertise, skill, knowledge and judgment of healthcare practitioners. The absence of a warning for a given drug or drug combination in no way should be construed to indicate that the drug or drug combination is safe, effective or appropriate for any given patient. [facility] does not assume any responsibility for any aspect of healthcare administered with the aid of information [facility] provides. The information contained herein is not intended to cover all possible uses, directions, precautions, warnings, drug interactions, allergic reactions, or adverse effects. If you have questions about the drugs you are taking, check with your doctor, nurse or pharmacist. Copyright 2400-7943 [facility]. Version: 18.01. Revision Date: 03/01/2021. Education Materials Diabetes with High Blood Sugar You have been treated for high blood sugar (hyperglycemia). This may be because of an infection or other illness. Or it may be from eating too many sweets or starches. Or it may be from not taking enough insulin or other diabetes medicine. Home care Check your blood sugar level at least 2 times a day. Write it down the results. Do this before breakfast and before dinner. If you take insulin, also write down your routine insulin dose. Note any other doses you needed based on your sliding scale or as advised by your healthcare provider. Do this for the next 3 to 5 days. High blood sugar may cause symptoms that you can learn to spot. These include: Peeing often Thirst Headache Breath that smells fruity Nausea or vomiting Belly pain If you have symptoms of high blood sugar, use a blood or urine test to find out what your blood sugar level is. If it is above your usual range, use the sliding scale regular insulin dose from your healthcare provider. Call your provider for advice if you were not given a range for your insulin dose. If your blood sugar is over 240 mg/dL, check your urine for ketones. Follow-up care Follow up with your healthcare provider, or as advised. You may need to meet with your provider in the next week. You will likely look at your blood sugar records together. You may need to change your dose of insulin or other diabetes medicine. When to seek medical advice Call your healthcare provider right away if these occur: Symptoms of high blood sugar that don't get better with the treatment your provider advised. This is especially true if you also have ketones in your urine. Blood sugar over 300 mg/dl. If you can t reach your healthcare provider, go to a hospital emergency room or urgent care center. Call 911 Call 911 if you have any of the following: Confusion Dizziness, lightheadedness, or loss of consciousness Shortness of breath Chest pain Weakness of an arm, leg, or one side of the face Sudden trouble with speech or vision 9743-0432 [employer]. [address] [place] [address]. All rights reserved. This information is not intended as a substitute for professional medical care. Always follow your healthcare professional's instructions. Uncontrolled High Blood Pressure (Established) Your blood pressure was unusually high today. This can occur if you ve missed doses of your blood pressure medicine. Or it can happen if you are taking other medicines. These include some asthma inhalers, decongestants, diet pills, and street drugs like cocaine and amphetamine. Other causes include: Weight gain More salt in your diet Smoking Caffeine Your blood pressure can also rise if you are emotionally upset or in intense pain. It may go back to normal after a period of rest. Blood pressure measurements are given as 2 numbers. Systolic blood pressure is the upper number. This is the pressure when the heart contracts. Diastolic blood pressure is the lower number. This is the pressure when the heart relaxes between beats. You will see your blood pressure readings written together. For example, a person with a systolic pressure of 118 and a diastolic pressure of 78 will have 118/78 written in the medical record. To be high blood pressure, the numbers must be higher when tested over a period of time. Blood pressure is categorized as normal, elevated, or stage 1 or stage 2 high blood pressure: Normal blood pressure is systolic of less than 120 and diastolic of less than 80 (120/80) Elevated blood pressure is systolic of 120 to 129 and diastolic less than 80 Stage 1 high blood pressure is systolic is 130 to 139 or diastolic between 80 to 89 Stage 2 high blood pressure is when systolic is 140 or higher or the diastolic is 90 or higher Uncontrolled high blood pressure can cause serious health problems. It raises your risk for heart attack, stroke, and heart failure. In general, if you have high blood pressure, keeping your blood pressure below 130/80 mmHg may help prevent these problems. Your healthcare provider may prescribe medicine to help control blood pressure if lifestyle changes are not enough. Home care It s important to take steps to lower your blood pressure. If you are taking blood pressure medicine, the guidelines below may help you need less or no medicines in the future. Start a weight-loss program if you are overweight. Cut back on the amount of salt in your diet: oAvoid high-salt foods like olives, pickles, smoked meats, and salted potato chips. oDon t add salt to your food at the table. oUse only small amounts of salt when cooking. Start an exercise program. Talk with your healthcare provider about what exercise program is best for you. It doesn t have to be difficult. Even brisk walking for 20 minutes 3 times a week is a good form of exercise. Avoid medicines that stimulates the heart. This includes many inci-gbq-nuhslpk cold and sinus decongestant pills and sprays, as well as diet pills. Check the warnings about high blood pressure on the label. Before purchasing any wxme-als-uoxuxxw medicines or supplements, always ask the pharmacist about the product's potential interaction with your high blood pressure and your medicines. Stimulants such as amphetamine or cocaine could be lethal for someone with high blood pressure. Never take these. Limit how much caffeine you drink. Or switch to noncaffeinated beverages. Stop smoking. If you are a long-time smoker, this can be hard. Enroll in a stop-smoking program to make it more likely that you will succeed. Talk with your provider about ways to quit. Learn how to handle stress better. This is an important part of any program to lower blood pressure. Learn ways to relax. These include meditation, yoga, and biofeedback. If medicines were prescribed, take them exactly as directed. Missing doses may cause your blood pressure to get out of control. If you miss a dose or doses of your medicines, check with your healthcare provider or pharmacist about what to do. Consider buying an automatic blood pressure machine. Your provider may recommend a certain type. You can get one of these at most pharmacies. Measure your blood pressure twice a day, in the morning, and in the late afternoon. Keep a written record of your home blood pressure readings and take the record to your medical appointments. Here are some additional guidelines on home blood pressure monitoring from the [place] [employer]. Don't smoke or drink coffee for 30 minutes Go to the bathroom before the test. Relax for 5 minutes before taking the measurement. Sit correctly. Be sure your back is supported. Don't sit on a couch or soft chair. Uncross your feet and place them flat on the floor. Place your arm on a solid, flat surface like a table with the upper arm at heart level. Make certain the middle of the cuff is directly above the bend of the elbow. Check the monitor's instruction manual for an illustration. Take multiple readings. When you measure, take 2 or 3 readings one minute apart and record all of the results. Take your blood pressure at the same time every day, or as your healthcare provider recommends. Record the date, time, and blood pressure reading. Take the record with you to your next appointment. If your blood pressure monitor has a built-in memory, simply take the monitor with you to your next appointment. Call your provider if you have several high readings. Don't be frightened by a single high reading, but if you get several high readings, check in with your healthcare provider. Note: When blood pressure reaches a systolic (top number) of 180 or higher or a diastolic (bottom number) of 110 or higher, emergency medical treatment is required. Call your healthcare provider immediately. Follow-up care Regular visits to your own healthcare provider for blood pressure and medicine checks are an important part of your care. Make a follow-up appointment as directed. Bring the record of your home blood pressure readings to the appointment. When to seek medical advice Call your healthcare provider right away if any of these occur: Blood pressure reaches a systolic (top number) of 180 or higher or diastolic (bottom number) of 110 or higher, emergency medical treatment is required. Chest, arm, shoulder, neck, or upper back pain Shortness of breath Severe headache Throbbing or rushing sound in the ears Nosebleed Extreme drowsiness, confusion, or fainting Dizziness or dizziness with spinning sensation (vertigo) Weakness in an arm or leg or on one side of the face Trouble speaking or seeing [id number] [employer]. [address] [place] [address], [place] [address]. All rights reserved. This information is not intended as a substitute for professional medical care. Always follow your healthcare professional's instructions. Unknown Causes of Abdominal Pain (Male) Based on your visit today, the exact cause of your abdominal pain is not clear. Your exam and tests don't suggest a dangerous cause at this time. However, the signs of a serious problem may take more time to appear. Although your evaluation was reassuring today, sometimes early in the course of many conditions, exam and lab tests can appear normal. Therefore, it is important for you to watch for any new symptoms or worsening of your condition. It may not be obvious what caused your symptoms. Pay attention to things that do seem to make your symptoms worse or better and discuss this with your doctor when you follow up. The evaluation of abdominal pain in the emergency department may only require an exam by the doctor or it may include blood, urine or imaging studies, depending on many factors. Sometimes exams and tests can identify a cause but in many cases, a clear cause is not found. Further testing at follow up visits may help to suggest a clear diagnosis. Home care Rest as much as you can until your next exam. Try to avoid any medicines (unless otherwise directed by your doctor), foods, activities, or other factors that may have contributed to your symptoms. Try to eat foods that you know that you have tolerated well in the past. Certain diets may be recommended for some conditions that cause abdominal pain. However, since the cause of your symptoms may not be clear, discuss your diet more with your healthcare provider or specialist for further recommendations. If you have diarrhea, it may help to avoid dairy (lactose) for the time being. A low fat, low fiber diet can also help. Eating several small meals per day as opposed to 2 or 3 larger meals may help. Avoid dehydration. Make sure to drink plenty of water. Other options include broth, soup, gelatin, sports drinks, or other clear liquids. Watch closely for anything that may make your symptoms worse or better. Pay close attention to symptoms below that may mean your condition is getting worse. Follow-up care Follow up with your healthcare provider if your symptoms are not improving, or as advised. In some cases, you may need more testing. When to seek medical advice Call your healthcare provider right away if any of these occur: Pain is becoming worse You are unable to take your medicines or can't keep water down due to excessive vomiting Swelling of the abdomen Fever of 100.4 F (38 C) or higher, or as directed by your healthcare provider Blood in vomit or bowel movements (dark red or black color) Jaundice (yellow color of eyes and skin) New onset of weakness, dizziness or fainting New onset of chest, arm, back, neck or jaw pain [id number] [employer]. [address] [place] [address], [place] [address]. All rights reserved. This information is not intended as a substitute for professional medical care. Always follow your healthcare professional's instructions. Additional Information VACCINATE! IT SAVES LIVES! Members of the community who have not yet received the COVID-19 vaccine and would like to receive it can visit one of [facility] vaccine clinics. There are many vaccine clinic locations within the [facility]. For locations and available times, please visit [email or web address] [email or web address] It is important to note that some COVID mobile vaccine clinics are held outdoors and may be canceled in rainy or stormy conditions. To learn more about pediatric vaccinations (ages 5-11), we invite you to visit the [facility] webpage. [email or web address] [email or web address]-[email or web address] To learn more about the COVID-19 vaccine, we invite you to visit the CDC website for a list of frequently asked questions. https://www.cdc.gov/coronavirus/ 2019-ncov/vaccines/faq.html [facility] Access Instructions: Stay connected with your healthcare team and access your personal medical information anytime with the [facility] Patient Portal. If you would like a full copy of your medical records please contact the [facility] Medical Records Department Friday through Friday between 8a.m. and 4:30p.m. Please follow the directions below to access the portal: 1.Access the email account you provided upon registration to the hospital.2.Look for an invitation email from [facility].3.Open the email and access the invitation link: Accept Invitation to [facility].Fill in the required osorio to create your account. Sign into [email or web address] with your username and password that you created in the above steps to stay up to date. You can then view a summary of results, a summary of your visits, and the ability to download your summaries to your computer or send the information securely to a physician. Remember that your healthcare information is confidential, so carefully consider who you will allow to register on the [facility] Portal for access to your information. You can also access the [facility] Portal on the [employer]. Simply click on Health Records under Health Data and then click on the [employer] logo. HOW TO SAFELY DISPOSE OF PRESCRIPTION MEDICATIONS Please use one of the following methods to safely dispose of your unused medications. 1.Use a drug disposal kit: the drug disposal pouch allows you to safely discard your old and unused drugs. Ask your nurse to give you one when you are discharged.2.Visit a local take-back location: Many local pharmacies and police departments have programs that collect old and unwanted prescription drugs. Call your local pharmacy or go to http://Pricelock.Unbound/4F2Rc4a to find one close to you.3.Make use of household items: Use cat litter or old coffee grounds to dispose medications if other options are not available. Mix your drugs with these household products, seal them in an airtight container and throw it into the garbage. Call [facility]: [phone] to be sure your drugs can be disposed of in this way. Some medicines may require a different approach.4.Never flush your medications down the toilet. IF YOU HAVE BEEN PRESCRIBED AN OPIOIDS FOR PAIN If you have been prescribed an opioid (such as hydrocodone, oxycodone or morphine), it is critical to understand the possible side effects and risks of opioid pain medications. Even when taken as directed, opioids can have several side effects including: Tolerance, meaning you might need to take more of a medication for the same pain relief. Nausea, vomiting and/or constipation. Sleepiness, dizziness, dry mouth, confusion, depression or itching. Physical dependence, meaning you have withdrawal symptoms when a medication is stopped ? this can develop within a few days. KNOW YOUR RESPONSIBILITIES It is important to know exactly how much and how often to take the opioid pain medications you are prescribed. Never take opioids in higher amounts or more often than prescribed. Do not combine opioids with alcohol or other drugs that cause drowsiness, such as benzodiazepines, also known as benzos, including diazepam and alprazolam, muscle relaxants or sleep aids. Never sell or share prescription opioids. This is illegal. Store opioids in a secure place and out of reach of others (including children, family, friends and visitors). The last page(s) of this document has been signed and retained as a CHART COPY Signatures Patient Education Materials Diabetes with High Blood Sugar High Blood Pressure, Established, Out of Control Abdominal Pain, Unknown Cause, (Male) Medication Leaflets ondansetron (oral), famotidine (oral/injection) My discharge plan and instructions have been reviewed and explained to me and I,ANASTACIO POSEY understand my current condition and have read and understand these discharge instructions. I have received a written copy of the plan/instructions. If I have questions, I am aware that I should contact my doctor. Patient/Pond Tender Signature: Date/Time: Relationship to Patient: Witness Name/Signature: Date/Time: [facility] 03-28-2023 Note ORIGINAL EXAMINATION: CT OF THE ABDOMEN AND PELVIS WITH CONTRAST 03/28/2023 4:52 pm TECHNIQUE: CT of the abdomen and pelvis was performed with the administration of intravenous contrast. Multiplanar reformatted images are provided for review. Automated exposure control, iterative reconstruction, and/or weight based adjustment of the mA/kV was utilized to reduce the radiation dose to as low as reasonably achievable. COMPARISON: 02/16/2015. 07/16/2017. HISTORY: ORDERING SYSTEM PROVIDED HISTORY: Reason for Exam: pain FINDINGS: The lung bases demonstrate no acute process. Question mild diffuse hypoattenuation of the liver. No focal hepatic lesion is identified. The spleen, adrenal glands, and pancreas are unremarkable. Prior cholecystectomy. Symmetric nephrograms. The ureters and bladder are unremarkable. Nondilated loops of small bowel. A normal appendix is identified. There is colonic diverticulosis. There are no significant pericolonic inflammatory changes to suggest diverticulitis. Nonaneurysmal abdominal aorta. The prostate is unremarkable. No free intraperitoneal fluid or gas. No lymphadenopathy is identified. Small bilateral fat containing inguinal hernias. Degenerative changes at L5-S1. No acute or aggressive osseous abnormality. Bone island is seen of the right iliac bone adjacent to the SI joint. IMPRESSION: No acute inflammatory process within the abdomen/pelvis. Normal appendix. Colonic diverticulosis without diverticulitis. Question mild hepatic steatosis. I have personally reviewed the images of this examination and agree with the resident's findings and interpretation. Interpreted by: Donald Maza MD Preliminary Report By: Antonia Ruiz Electronically signed By Donald Maza MD Dictated Date: 03/28/2023 5:07:57 PM Prelim Date: 03/28/2023 5:13:34 PM Sign Date: 03/28/2023 5:27:10 PM Ordering Provider: [facility] 03-28-2023 Note ORIGINAL EXAMINATION: CT OF THE ABDOMEN AND PELVIS WITH CONTRAST 03/28/2023 4:52 pm TECHNIQUE: CT of the abdomen and pelvis was performed with the administration of intravenous contrast. Multiplanar reformatted images are provided for review. Automated exposure control, iterative reconstruction, and/or weight based adjustment of the mA/kV was utilized to reduce the radiation dose to as low as reasonably achievable. COMPARISON: 02/16/2015. 07/16/2017. HISTORY: ORDERING SYSTEM PROVIDED HISTORY: Reason for Exam: pain FINDINGS: The lung bases demonstrate no acute process. Question mild diffuse hypoattenuation of the liver. No focal hepatic lesion is identified. The spleen, adrenal glands, and pancreas are unremarkable. Prior cholecystectomy. Symmetric nephrograms. The ureters and bladder are unremarkable. Nondilated loops of small bowel. A normal appendix is identified. There is colonic diverticulosis. There are no significant pericolonic inflammatory changes to suggest diverticulitis. Nonaneurysmal abdominal aorta. The prostate is unremarkable. No free intraperitoneal fluid or gas. No lymphadenopathy is identified. Small bilateral fat containing inguinal hernias. Degenerative changes at L5-S1. No acute or aggressive osseous abnormality. Bone island is seen of the right iliac bone adjacent to the SI joint. IMPRESSION: No acute inflammatory process within the abdomen/pelvis. Normal appendix. Colonic diverticulosis without diverticulitis. Question mild hepatic steatosis. I have personally reviewed the images of this examination and agree with the resident's findings and interpretation. Interpreted by: Donald Maza MD Preliminary Report By: Antonia Ruiz Electronically signed By Donald Maza MD Dictated Date: 03/28/2023 5:07:57 PM Prelim Date: 03/28/2023 5:13:34 PM Sign Date: 03/28/2023 5:27:10 PM Ordering Provider: SATNAM SAMAYOA [facility] 06-10-2022 Instructions Nasra Rice APRN.CNS - 06/10/2022 11:22 AM EDT Take an extra 5 mg amlodipine today as soon as you get home Take 5 mg amlodipine and 20 mg lisinopril every day for blood pressure. documented in this encounter [facility] 06-10-2022 History of Presen t illness Narrative SUBJECTIVE: HEPATITIS B(1 of 3 - 3-dose series) Never done PNEUMOCOCCAL(1 - PCV) Never done DIABETIC FOOT EXAM due on 03/08/2022 BP CONTROLLED (<130/80) due on 03/08/2022 COVID-19 VACCINE(3 - Booster for Pfizer series) due on 03/18/2022 INFLUENZA(1) due on 05/23/2022 HPI Anastacio Posey is a 41 year old male. PMH significant for ACTIVE PROBLEM LIST Paranoid Schizophrenia (Hcc) Hypertension Lumbar Disc Herniation Physical Deconditioning Ddd (Degenerative Disc Disease), Lumbar Morbid Obesity (Hcc) Lumbago Incomplete Rbbb Florian On Cpap Type 2 Diabetes Mellitus Without Complication, Without Long-Term Current Use of Insulin (Hcc) Lower Urinary Tract Symptoms (Luts) Gastroparesis Presents today for routine follow up visit. Has seen Dr Pressley for refractory gastroparesis. Has seen policy services representative. Dietary measures for GP discussed. Today reports frontal headache, states taking medications as ordered Psychiatry: not currently seeing Managing his own medications. Notes frontal headache for two weeks. EPIC review of medications show no recent refills of BP medications. States he would like his ears cleaned today. DIABETES MELLITUS: Without report of s/s of DM. Follows a diabetic diet . Does not appear compliant with medications. Patient's last HgA1C was Hemoglobin A1C (%) Date Value 02/20/2022 7.6 02/20/2022 7.7 10/18/2021 6.6 03/06/2021 7.8 Hemoglobin A1C (POCT) (%) Date Value 06/20/2021 9.0 ) HTN: Notes headache x2 weeks, without report of headache, chest pain, palpitations, dyspnea, peripheral edema, orthopnea, fatigue, and PND. Last 14 Encounter BP Readings: Date: BP: 06/10/2022 153/106[bp average[ 05/23/2022 132/94 05/16/2022 158/94 02/20/2022 131/90 02/20/2022 131/90 11/02/2021 132/88 10/23/2021 114/84 07/05/2021 112/76 06/20/2021 124/82 06/04/2021 147/91 06/01/2021 128/84 05/15/2021 140/100 04/12/2021 130/81 03/09/2021 114/82 Hyperlipidemia. Mr. Posey reports doing well on current therapy His most recent lipid panels are: Cholesterol, Total (mg/dL) Date Value 10/18/2021 136 09/04/2020 132 HDL Cholesterol (mg/dL) Date Value 10/18/2021 45 09/04/2020 42 LDL Cholesterol (mg/dL) Date Value 10/18/2021 77 09/04/2020 58 Triglyceride (mg/dL) Date Value 10/18/2021 71 09/04/2020 160 Review of Systems Constitutional: Negative. Respiratory: Negative. Cardiovascular: Negative. Neurological: Positive for headaches. Objective BP 153/106 Pulse 73 Resp 16 Wt 126.6 kg (279 lb) BMI 37.83 kg/m Physical Exam Vitals and nursing note reviewed. Constitutional: Appearance: Normal appearance. HENT: Head: Normocephalic and atraumatic. Right Ear: There is impacted cerumen. Left Ear: There is impacted cerumen. Eyes: Conjunctiva/sclera: Conjunctivae normal. Cardiovascular: Rate and Rhythm: Normal rate and regular rhythm. Heart sounds: Normal heart sounds. Pulmonary: Breath sounds: Normal breath sounds. Abdominal: General: Bowel sounds are normal. Palpations: Abdomen is soft. Musculoskeletal: Right lower leg: No edema. Left lower leg: No edema. Skin: General: Skin is warm and dry. Neurological: Mental Status: He is alert. Mental status is at baseline. ALLERGIES No Known Allergies Medications amLODIPine (NORVASC) 5 mg tablet Take 1 tablet by mouth once daily. lisinopril (ZESTRIL, PRINIVIL) 20 mg tablet Take 1 tablet by mouth once daily metFORMIN (GLUCOPHAGE) 1,000 mg tablet Take 1 tablet by mouth twice daily with meals. Diabetes. DOSE CHANGE - TAKE ONE WITH BREAKFAST AND DINNER (Patient taking differently: Take 2,000 mg by mouth twice daily with meals. Diabetes. DOSE CHANGE - TAKE ONE WITH BREAKFAST AND DINNER ) SITagliptin (JANUVIA) 100 mg tablet Take 1 tablet by mouth once daily. empagliflozin (JARDIANCE) 25 mg tablet Take 1 tablet by mouth daily with breakfast. Blood Pressure Monitor Use as directed. blood sugar diagnostic (BLOOD GLUCOSE TEST) test strip Test blood sugar(s) 1x daily. Dx: Type 2 DM. Insulin: No Lancets lancets Test blood sugar(s) 1x times daily. Dx: Type 2 DM - Uncontrolled E11.65 Insulin: No PAST MEDICAL HISTORY Diagnosis Date Balanitis 11/25/2016 DDD (degenerative disc disease), lumbar 11/09/2014 Hypertension IBS (irritable bowel syndrome) 01/19/2014 Incomplete RBBB Incomplete RBBB Lumbago 05/18/2015 chronic Lumbar disc herniation 05/25/2014 Obesity FLORIAN on CPAP 01/16/2016 Paranoid schizophrenia (HCC) with auditory hallucinations, [facility] Sn[facility] Uncontrolled type 2 diabetes mellitus without complication, without long-term current use of insulin 11/13/2016 Social History Tobacco Use Smoking status: Former Packs/day: 0.50 Years: 7.00 Pack years: 3.50 Types: Cigarettes Quit date: 12/31/2013 Years since quittin.4 Smokeless tobacco: Never Substance Use Topics Alcohol use: No Drug use: No Component Latest Ref Rng & Units 02/20/2022 02/20/2022 1:48 PM 1:48 PM Hemoglobin A1C 4.3 - 5.6 % 7.6 (H) 7.7 (H) Estimated Average Glucose mg/dL 171 174 CK 51 - 298 U/L 45 (L) LD 135 - 225 U/L 197 TSH 0.270 - 4.200 mIU/L 1.230 Free T4 0.9 - 1.7 ng/dL 1.2 CRP <0.9 mg/dL 0.4 WSR 0 - 15 mm/hr 2 ASSESSMENT/PLAN: 1. Primary hypertension - ICD9: 401.9, ICD10: I10 (primary diagnosis) - suboptimal control - Resume usual medications - appears non adherant to therapy recently - Encourage dietary sodium restriction/DASH diet - Recommend regular aerobic exercise. - Goal of BP <130/80 - LISINOPRIL 20 MG TABLET - AMLODIPINE 5 MG TABLET 2. Type 2 diabetes mellitus without complication, without long-term current use of insulin (HCC) - ICD9: 250.00, ICD10: E11.9 improved control - Continue current medications - METFORMIN 1,000 MG TABLET 3. Excessive cerumen in ear canal, bilateral - ICD9: 380.4, ICD10: H61.23 4. Encounter for immunization - ICD9: V03.89, ICD10: Z23 Defers - PNEUMOCOCCAL VACCINE (PREVNAR 20) - PFIZER-Metafused COVID-19 BIVALENT BOOSTER VACCINE, AGE 12+ YR - HEPATITIS B VACCINE, ADULT AGE 20+, IM 5. Incomplete RBBB - ICD9: 426.4, ICD10: I45.10 stable Nonadherent with medications recently on review in [facility]. Refill sent to pharmacy today. Recommend resuming today. Recheck Friday this week or Friday next week regarding blood pressure. Cerumen removal at next visit. Nasra Rice APRN.PHARMACIST IN CHARGE OWNER Medical Decision Making: Problems: Moderate: 1+ chronic illnesses with change Risk: Moderate: Drug management Medical Decision Making Level: 4 - Moderate documented in this encounter [facility] 05-23-2022 History of Presen t illness Narrative CC: Patient presents with: Recheck: Bruise follow up HPI Anastacio Posey is a 41 year old male who presents today for follow up on bruise. Bruise is almost gone and is non tender. Still has soft small lump to RFA and wanted this re-evaluated. Denies pain, edema, change in sensation, chest pain, shortness of breath, or fever. REVIEW OF SYSTEMS General: no fevers, no chills, no night sweats, no recurrent infections, no change in appetite, no change in energy, and no significant changes in weight Respiratory: no cough, no wheezing, no shortness of breath, no hemoptysis Cardiovascular: no chest pain, no chest pressure, no palpitations, and no swelling PAST MEDICAL HISTORY Diagnosis Date Balanitis 11/25/2016 DDD (degenerative disc disease), lumbar 11/09/2014 Hypertension IBS (irritable bowel syndrome) 01/19/2014 Incomplete RBBB Incomplete RBBB Lumbago 05/18/2015 chronic Lumbar disc herniation 05/25/2014 Obesity FLORIAN on CPAP 01/16/2016 Paranoid schizophrenia (HCC) with auditory hallucinations, [facility] Uncontrolled type 2 diabetes mellitus without complication, without long-term current use of insulin 11/13/2016 PAST SURGICAL HISTORY Procedure Laterality Date ABDOMINAL SURGERY HX COLONOSCOPY FLX DX W/COLLJ SPEC WHEN PFRMD 02/25/2013 ESOPHAGOGASTRODUODENOSCOPY TRANSORAL DIAGNOSTIC 04/19/2021 LAPAROSCOPY SURG CHOLECYSTECTOMY 09/11/2015 ALLERGIES Patient has no known allergies. MEDICATIONS amLODIPine (NORVASC) 5 mg tablet Take 1 tablet by mouth once daily. lisinopril (ZESTRIL, PRINIVIL) 20 mg tablet Take 1 tablet by mouth once daily metFORMIN (GLUCOPHAGE) 1,000 mg tablet Take 1 tablet by mouth twice daily with meals. Diabetes. DOSE CHANGE - TAKE ONE WITH BREAKFAST AND DINNER (Patient taking differently: Take 2,000 mg by mouth twice daily with meals. Diabetes. DOSE CHANGE - TAKE ONE WITH BREAKFAST AND DINNER ) SITagliptin (JANUVIA) 100 mg tablet Take 1 tablet by mouth once daily. empagliflozin (JARDIANCE) 25 mg tablet Take 1 tablet by mouth daily with breakfast. Blood Pressure Monitor Use as directed. blood sugar diagnostic (BLOOD GLUCOSE TEST) test strip Test blood sugar(s) 1x daily. Dx: Type 2 DM. Insulin: No Lancets lancets Test blood sugar(s) 1x times daily. Dx: Type 2 DM - Uncontrolled E11.65 Insulin: No FAMILY HISTORY Problem Relation Age of Onset Heart Mother Atrial fibrilation Thyroid Mother hypothyroidism Lipids Mother high cholesterol Hypertension Father Diabetes Father Obesity Father Asthma Sister Hypertension Sister Thyroid Sister hypothyroidism Cancer Sister Lipids Sister Obesity Sister Tics Brother Psychiatry Brother schizophrenia Heart Brother enlarged heart Obesity Brother Ischemic Heart Disease Maternal Uncle Social History Tobacco Use Smoking status: Former Packs/day: 0.50 Years: 7.00 Pack years: 3.50 Types: Cigarettes Quit date: 12/31/2013 Years since quittin.3 Smokeless tobacco: Never Substance Use Topics Alcohol use: No Drug use: No PHYSICAL EXAM BP 132/94 Pulse 68 Resp 16 General Appearance: well appearing, in no acute distress, alert Skin: Skin color, texture, turgor normal for age; Bruise to RFA is almost fully healed and is a very faint yellow at edges. Lump to area is small than pervious and continues to be nontender RUE: color normal, pulses palpable, without edema, cap refill less than 3 seconds Eyes: conjunctiva pink and moist, no icterus, sclera white, non-injected Health maintenance reviewed with patient: HEPATITIS B(1 of 3 - 3-dose series) Never done PNEUMOCOCCAL(1 - PCV) Never done DIABETIC FOOT EXAM due on 03/08/2022 BP CONTROLLED (<130/80) due on 03/08/2022 COVID-19 VACCINE(3 - Booster for Pfizer series) due on 03/18/2022 INFLUENZA(1) due on 05/23/2022 DTAP,TDAP,TD(3 - Td or Tdap) due on 09/10/2023 DEPRESSION SCREENING due on 07/05/2022 HBA1C due on 08/22/2022 URINE ALBUMIN:CREATININE RATIO due on 10/18/2022 LDL CHOLESTEROL due on 10/18/2022 DILATED RETINAL EXAM due on 01/28/2023 ANNUAL PCP TEAM CHRONIC DISEASE VISIT due on 05/16/2023 HEPATITIS C SCREENING Completed HIV SCREENING Completed DATA REVIEWED: No new labs ASSESSMENT/PLAN: 1. Bruise - ICD9: 924.9, ICD10: T14.8XXA (primary diagnosis) Resolving. Soft mass is getting smaller in size. Patient reassured that this is improving as well and that I feel it is from whatever unknown injury caused the bruise. This is expected to continue to improve - follow up if this gets larger, tender, or red. 2. Soft tissue mass - ICD9: 729.99, ICD10: M79.89 As above Prescription instructions reviewed with patient as applicable. Potential red flag symptoms discussed with the patient. Reviewed appropriate action plan to take if red flag symptoms occur. Patient agreeable to treatment plan. Renee Galindo APRN.CNP documented in this encounter [facility] 05-20-2022 Miscellaneous Notes reviewed by Dr Pressley continue with diet and let us know if symptoms get worse called and notified patient states understanding Faith Mares RN May 20, 2022 2:33 PM patient is calling in states has been having some nausea and vomiting did see a policy services representative virtually went over diet he has a bowl of cereal or eggs with toast (wheat) and eggs or ikm sometimes a blueberry bagel with cream cheese for breakfast for dinner he usually eats a steak or chicken, ribs, pork chop, vegetables went over GP diet at length with him symptoms include pain at umbilicus with a small bulge - not a hernia per patient today nausea is good - able to eat and drink went over what POP procedure is and what it helps please advise if this patient is a POP candidate? Faith Mares RN May 16, 2022 1:58 PM documented in this encounter [facility] 05-16-2022 History of Presen t illness Narrative CC: Patient presents with: Bleeding/Bruising: R arm bruised, lump x 4 days HPI Anastacio Posey is a 41 year old male who presents today for a lump on his arm. Has a bruise to right forearm for 4 days without remembering if he hit his arm or any injury. A couple of days ago noticed a soft non painful lump to middle of bruised area. HTN: Mr. Posey indicates that he is feeling well and denies any symptoms referable to elevated blood pressure. Specifically denies headache, chest pain, palpitations, dyspnea, and peripheral edema. Patient denies any side effects of his medication(s) and is compliant with their regimen. He does not check BP's generally. Anastacio denies regular aerobic exercise. He watches his diet for sodium, low fat and low cholesterol some of the time. Last 3 Encounter BP Readings: Date: BP: 05/16/2022 158/94 02/20/2022 131/90 02/20/2022 131/90 Patient has not been taking his amlodipine as prescribed when reviewing his medications. REVIEW OF SYSTEMS General: no fevers, no chills, no night sweats, no recurrent infections, no change in appetite, no change in energy, and no significant changes in weight Respiratory: no cough, no wheezing, no shortness of breath, no hemoptysis Cardiovascular: no chest pain, no chest pressure, no palpitations, and no swelling Neurologic: No headache, weakness, numbness, tingling, dizziness, syncope. PAST MEDICAL HISTORY Diagnosis Date Balanitis 11/25/2016 DDD (degenerative disc disease), lumbar 11/09/2014 Hypertension IBS (irritable bowel syndrome) 01/19/2014 Incomplete RBBB Incomplete RBBB Lumbago 05/18/2015 chronic Lumbar disc herniation 05/25/2014 Obesity FLORIAN on CPAP 01/16/2016 Paranoid schizophrenia (HCC) with auditory hallucinations, [facility] Uncontrolled type 2 diabetes mellitus without complication, without long-term current use of insulin 11/13/2016 PAST SURGICAL HISTORY Procedure Laterality Date ABDOMINAL SURGERY HX COLONOSCOPY FLX DX W/COLLJ SPEC WHEN PFRMD 02/25/2013 ESOPHAGOGASTRODUODENOSCOPY TRANSORAL DIAGNOSTIC 04/19/2021 LAPAROSCOPY SURG CHOLECYSTECTOMY 09/11/2015 ALLERGIES Patient has no known allergies. MEDICATIONS lisinopril (ZESTRIL, PRINIVIL) 20 mg tablet Take 1 tablet by mouth once daily sildenafil (VIAGRA) 100 mg tablet 1 tablet 30 min prior to intercourse, on empty stomach and with sexual stimulation immediately following. metFORMIN (GLUCOPHAGE) 1,000 mg tablet Take 1 tablet by mouth twice daily with meals. Diabetes. DOSE CHANGE - TAKE ONE WITH BREAKFAST AND DINNER (Patient taking differently: Take 2,000 mg by mouth twice daily with meals. Diabetes. DOSE CHANGE - TAKE ONE WITH BREAKFAST AND DINNER ) SITagliptin (JANUVIA) 100 mg tablet Take 1 tablet by mouth once daily. empagliflozin (JARDIANCE) 25 mg tablet Take 1 tablet by mouth daily with breakfast. Blood Pressure Monitor Use as directed. amLODIPine (NORVASC) 5 mg tablet Take 1 tablet by mouth once daily. blood sugar diagnostic (BLOOD GLUCOSE TEST) test strip Test blood sugar(s) 1x daily. Dx: Type 2 DM. Insulin: No Lancets lancets Test blood sugar(s) 1x times daily. Dx: Type 2 DM - Uncontrolled E11.65 Insulin: No FAMILY HISTORY Problem Relation Age of Onset Heart Mother Atrial fibrilation Thyroid Mother hypothyroidism Lipids Mother high cholesterol Hypertension Father Diabetes Father Obesity Father Asthma Sister Hypertension Sister Thyroid Sister hypothyroidism Cancer Sister Lipids Sister Obesity Sister Tics Brother Psychiatry Brother schizophrenia Heart Brother enlarged heart Obesity Brother Ischemic Heart Disease Maternal Uncle Social History Tobacco Use Smoking status: Former Packs/day: 0.50 Years: 7.00 Pack years: 3.50 Types: Cigarettes Quit date: 12/31/2013 Years since quittin.3 Smokeless tobacco: Never Substance Use Topics Alcohol use: No Drug use: No PHYSICAL EXAM BP 158/94 Pulse 72 Resp 16 Wt 124.3 kg (274 lb) BMI 37.15 kg/m General Appearance: well appearing, in no acute distress, alert Skin: Skin color, texture, turgor normal for age; Yellow and green bruise noted to right forearm with soft small mass to center of bruise. Area is not tender, not edema, no redness, and no open areas Eyes: conjunctiva pink and moist, no icterus, sclera white, non-injected Lungs: Lungs clear to auscultation. No wheezing, rhonchi, rales. Heart: RRR without murmur, gallop, or rubs. No ectopy BUE Extremities: No deformities, edema, skin discoloration, clubbing or cyanosis. Good capillary refill. Pulses palpable Musculoskeletal: No joint swelling, deformity, or tenderness Neurological: Gait normal. Sensation grossly intact., Negative findings: speech normal, muscle tone normal, muscle strength normal Health maintenance reviewed with patient: HEPATITIS B(1 of 3 - 3-dose series) Never done PNEUMOCOCCAL(1 - PCV) Never done DIABETIC FOOT EXAM due on 03/08/2022 BP CONTROLLED (<130/80) due on 03/08/2022 COVID-19 VACCINE(3 - Booster for Pfizer series) due on 03/18/2022 DTAP,TDAP,TD(3 - Td or Tdap) due on 09/10/2023 INFLUENZA(1) due on 05/23/2022 ANNUAL PCP TEAM CHRONIC DISEASE VISIT due on 06/20/2022 DEPRESSION SCREENING due on 07/05/2022 HBA1C due on 08/22/2022 URINE ALBUMIN:CREATININE RATIO due on 10/18/2022 LDL CHOLESTEROL due on 10/18/2022 DILATED RETINAL EXAM due on 01/28/2023 HEPATITIS C SCREENING Completed HIV SCREENING Completed DATA REVIEWED: No new labs ASSESSMENT/PLAN: 1. Bruise - ICD9: 924.9, ICD10: T14.8XXA (primary diagnosis) - probable injury and is healing. No edema tenderness or redness to area, soft mass in middle is nontender and probable result of hitting his harm. - discussed with patient if this does not go away over the next week, gets larger, becomes tender, or any other changes he needs to follow up and may need an US to further evaluate 2. Soft tissue mass - ICD9: 729.99, ICD10: M79.89 As above 3. Essential hypertension - ICD9: 401.9, ICD10: I10 - uncontrolled probably result of not continuing amlodipine - Continue current medication(s) - Encouraged dietary sodium restriction/DASH diet - Recommended regular aerobic exercise. - Recommend home blood pressure monitoring, to bring results in on next visit - Goal of BP <130/80 - AMLODIPINE 5 MG TABLET - nurse BP check in 2 weeks. Prescription instructions reviewed with patient as applicable. Potential red flag symptoms discussed with the patient. Reviewed appropriate action plan to take if red flag symptoms occur. Patient agreeable to treatment plan. Renee Galindo APRN.CNP documented in this encounter [facility] 03-13-2022 Miscellaneous Notes Patient calls and states that he did go to [facility] ER. Blood work and CT scan were done and came back normal. Patient was given prescription for nausea pills which have helped. Patient denies needing a ER follow up visit. Faith Wallis RN Patient triaged on 03/11/2022 with recommendation to seek ED evaluation. Patient agreed to evaluation at that time. Call placed to patient with no answer at this time. Message left for patient to call back and verify he received treatment. Daisy Garcia RN He reports vomiting since Friday and unable to keep anything but water down. Recommend ER visit if he has not done so yet ASIM. documented in this encounter [facility] 03-11-2022 Miscellaneous Notes Patient calls to report vomiting since Friday night. Patient to ED already over the weekend and reports they gave him Zofran but he isn't able to keep it down. Nurse triage completed with difficulty d/t report of symptoms changing. Recommend return to ED for possible vomiting of blood and dehydration. Patient verbalizes understanding. Care advice reviewed. Patient to call for follow up appointment with Dr. Pressley after ED evaluation. Reason for Disposition [1] Vomiting AND [2] contains red blood or black ( coffee ground ) material (Exception: few red streaks in vomit that only happened once) Answer Assessment - Initial Assessment Questions 1. VOMITING SEVERITY: - SEVERE: 6 or more times/day, vomits everything or nearly everything, with significant weight loss, symptoms of dehydration Patient reports that he can't keep anything down since Friday. Patient was to ED over the weekend and has been vomiting since. Patient has zofran ordered but says he can't keep that down either but then says he has only tried one pill so far. 2. ONSET:Friday 3. FLUIDS: Water and Gatorade. Not sure amount but reports vomiting frequently. Tried applesauce and toast this AM which came up. 4. ABDOMINAL PAIN: Midline to umbilicus. Painful area feels hard distended like a hernia but not a hernia . 5. DIARRHEA: No 6. CONTACTS: No 7. CAUSE: Patient reports he thinks it is related to my stomach problem 8. HYDRATION STATUS: Dry mouth and Dry lips. Walking ok. Urinated this morning at 930 am. 9. OTHER SYMPTOMS: No fever, headache, vertigo, or recent head injury. Patient reports that he thinks there is blood in his vomit but he isn't really sure. Protocols used: [id number] documented in this encounter [facility] 03-07-2022 History of Presen t illness Narrative [facility] Nutrition Therapy: Virtual Consult Initial Assessment This visit was performed virtually due to the COVID-19 epidemic as an effort to protect patients and minimize exposure. Consent from patient received to conduct visit virtually. This Team Access Model visit is a virtual encounter. It required patient-provider interaction for the medical decision making as documented below. 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) Additional Activity: Sedentary (Little or no exercise: <1x/week) Diet History: Breakfast - glucerna OR 2 eggs, whole wheat toast Snack - - Lunch - 10 pizza rolls OR cold cut sandwich (ham, cheese, bologna, 2 slices bread) Snack - variety of fruit and vegetables Dinner - 4 hot dogs, no bun, no sides OR banquet frozen dinner OR chicken thighs, mashed potatoes, corn OR steak, green beans Snack - - Beverages - water, flavored water Supplements - MVI, glucerna when skipping breakfast ANTHROPOMETRICS Height per patient: 73 Weight per patient: 281# Most recent height and weight per EPIC Height: Last 1 Encounter Ht Readings: Date: Ht: 02/20/2022 182.9 cm (6') Weight: Last 1 Encounter Wt Readings: Date: Wt: 02/20/2022 127.5 kg (281 lb) Body mass index is 38.1 kg/m . Resting Metabolic Rate: 2224 Malnutrition Screening Significant unintentional weight loss? No Eating less than 75% of usual intake for more than 2 weeks? No Potential Signs of Inflammation: no identifiable sources RECOMMENDED MALNUTRITION DIAGNOSIS: NO MALNUTRITION IDENTIFIED Educational materials provided: Diet for Gastroparesis Patient presents for initial nutrition Virtual Consult to discuss gastroparesis. He reports symptoms of nausea and early satiety started in 2015/2016. PMH of HTN, T2DM (HbA1c 7.7), IBS, s/p cholecystectomy. Weight has been stable currently within class II obesity range. He reports eating 2-3 meals per day with decreased portions occasionally. Appropriate use of protein supplement when skipping breakfast. Diet recall reveals regular intake of ultra processed foods high in saturated fat potentially contributing to increased GI sx's. Low intake of fiber which is desirable for his condition, encouraged including produce with less roughage. Nutrition Diagnosis: Altered Gastrointestinal Tract Function, related to, GI dysmotility (gastroparesis, global dysmotility, colonic inertia), as evidenced by nausea, early satiety. Nutrition Intervention 03/07/2022: Modify type and amount of food consumed for meals and snacks: - Eat small, frequent meals: Aim to eat every 2-4 hours - Choose lean protein sources: chicken or turkey without the skin, fish, eggs, soy, nut butters, dairy - Poultry or meat may be better tolerated ground or shredded - Choose low fiber foods: White bread/pasta/rice; Cooked vegetables (avoid cruciferous vegetables, beans, and legumes); Pureed or canned fruits (avoid skin of fruit and berries) - Limit saturated fat: avoid red meat and processed meat, fried foods, baked goods - Chew food slowly and thoroughly > sit up while eating and avoid laying down for ~3 hours after a meal - Drink Glucerna shake if skipping a meal - Separate beverages with meals - Walk after meals to help support digestion - Resources for recipes/information for gastroparesis https://Qu[employer] [email or web address]/t [email or web address]/tgkenxa-ovqqtmqef-ummk ures/vgocxh-tbyz-dduvr/ [email or web address]/jules bondqihwiu-mslptns-jpi-gastroparesis / Nutrition Monitoring & Evaluation: GI symptoms. Dietary intake. Weight. Need for Follow up: 2-3 months MNT Billing Type: Re-assess/15 min 2 units Signed by: Jamee Buck RD documented in this encounter [facility] 02-20-2022 Nurse Note Patient has gastroparesis. Referred by Dr Rosenbaum. Some low abdominal pain. No nausea or vomiting. What is the reason for your visit today? Gastroparesis Who is your referring physician? Dr Rosenbaum Are you having poor oral intake? NO Have you had unintentional weight loss of 15 lbs/7 Kg in the last 3-6 months? NO Bowels: regular Wound: n/a Temperature: No Drains: No documented in this encounter [facility] 02-20-2022 History of Presen t illness Narrative Assessment ASSESSMENT 41 year old male with medical refractory gastroparesis. PLAN I discussed surgical therapy for gastroparesis and rectus diastasis in detail. Anastacio Posey is candidate for Nutrition referral as his symptoms are not terrible. Can discuss and POP if refractory to this. Would be a good EMPTIES candidate if considering a POP. NAME: Anastacio Posey CLINIC NO: [id number] DATE OF SERVICE: February 19, 2022 This is an initial consultation for Anastacio Posey who was referred to me by Dr. Anastacio Rosenbaum for evaluation of medical refractory gastroparesis. My final recommendation will be communicated via shared electronic medical record. CHIEF COMPLAINT Idiopathic Gastroparesis and possible hernia HISTORY OF PRESENT ILLNESS Anastacio Posey is a 41 year old male who comes in today for surgical evaluation for management of gastroparesis. The patient has been evaluated thoroughly including an EGD, and gastric emptying study. 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 nausea 2 2. retching 0 3. vomiting 0 4. stomach fullness 3 5. not able to finish a normal-sized meal 4 6. feeling excessively full after meals 3 7. loss of appetite 0 8. bloating (feeling like you need to loosen your clothes) 0 9. stomach or belly visibly larger 0 GCSI - 1.06 Scale (0-none; 1-very mild; 2-mild; 3-moderate; 4-severe; 5-very severe) PAST HISTORY PAST MEDICAL HISTORY Diagnosis Date Balanitis 11/25/2016 DDD (degenerative disc disease), lumbar 11/09/2014 Hypertension IBS (irritable bowel syndrome) 01/19/2014 Incomplete RBBB Incomplete RBBB Lumbago 05/18/2015 chronic Lumbar disc herniation 05/25/2014 Obesity FLORIAN on CPAP 01/16/2016 Paranoid schizophrenia (HCC) with auditory hallucinations, [facility] Snoring Uncontrolled type 2 diabetes mellitus without complication, without long-term current use of insulin 11/13/2016 PAST SURGICAL HISTORY Procedure Laterality Date ABDOMINAL SURGERY HX COLONOSCOPY FLX DX W/COLLJ SPEC WHEN PFRMD 02/25/2013 ESOPHAGOGASTRODUODENOSCOPY TRANSORAL DIAGNOSTIC 04/19/2021 LAPAROSCOPY SURG CHOLECYSTECTOMY 09/11/2015 FAMILY HISTORY Problem Relation Age of Onset Heart Mother Atrial fibrilation Thyroid Mother hypothyroidism Lipids Mother high cholesterol Hypertension Father Diabetes Father Obesity Father Asthma Sister Hypertension Sister Thyroid Sister hypothyroidism Cancer Sister Lipids Sister Obesity Sister Tics Brother Psychiatry Brother schizophrenia Heart Brother enlarged heart Obesity Brother Ischemic Heart Disease Maternal Uncle Social History Tobacco Use Smoking status: Former Smoker Packs/day: 0.50 Years: 7.00 Pack years: 3.50 Quit date: 12/31/2013 Years since quittin.1 Smokeless tobacco: Never Used Substance Use Topics Alcohol use: No Drug use: No Current Outpatient Medications on File Prior to Visit Medication Sig lisinopril (ZESTRIL, PRINIVIL) 20 mg tablet Take 1 tablet by mouth once daily sildenafil (VIAGRA) 100 mg tablet 1 tablet 30 min prior to intercourse, on empty stomach and with sexual stimulation immediately following. metFORMIN (GLUCOPHAGE) 1,000 mg tablet Take 1 tablet by mouth twice daily with meals. Diabetes. DOSE CHANGE - TAKE ONE WITH BREAKFAST AND DINNER (Patient taking differently: Take 2,000 mg by mouth twice daily with meals. Diabetes. DOSE CHANGE - TAKE ONE WITH BREAKFAST AND DINNER ) SITagliptin (JANUVIA) 100 mg tablet Take 1 tablet by mouth once daily. empagliflozin (JARDIANCE) 25 mg tablet Take 1 tablet by mouth daily with breakfast. Blood Pressure Monitor Use as directed. amLODIPine (NORVASC) 5 mg tablet Take 1 tablet by mouth once daily. blood sugar diagnostic (BLOOD GLUCOSE TEST) test strip Test blood sugar(s) 1x daily. Dx: Type 2 DM. Insulin: No Lancets lancets Test blood sugar(s) 1x times daily. Dx: Type 2 DM - Uncontrolled E11.65 Insulin: No No current facility-administered medications on file prior to visit. REVIEW OF SYSTEMS: General: No weight loss, malaise or fevers. Neuro: No Hx of stroke or seizures Respiratory: No history of current cough or dyspnea, or pneumonia in the past 6 weeks. No history of respiratory/pulmonary symptoms or problems Cardiovascular: Positive for: CHF GI: See HPI : No history of UTI in past 6 weeks. No history of renal failure. Not currently on or requiring dialysis. No history of symptoms or problems. Endocrine: Diabetes Mellitus on oral agent Hematology: No history of bleeding or clotting disorder. Pt is not taking anti-coagulation or platelet medications. No history of hematological symptoms or problems. Oncology: No history of CA metastasis, chemo within 30 days, or radiotherapy within 90 days. Has not lost 10% of body wt in 6 months. No history of oncological symptoms or problems. Psych: See HPI Musculoskeletal: Back pain Skin: Negative for lesions, rash and itching. Physical Exam BP 131/90 (BP Position: Sitting, BP Cuff Size: Regular Adult) Pulse 79 Ht 182.9 cm (6') Wt 127.5 kg (281 lb) BMI 38.11 kg/m Gen - NAD Cervical - No Cervical LN, normal ROM HEENT - Anicteric sclera, MMM CV - RRR Pulm - CTAB Abd - Soft, ND, NT, Rectus diastasis, healed lap incisions Ext - No LE Edema Lionel Pressley MD documented in this encounter [facility] 02-20-2022 History of Presen t illness Narrative GASTROPARESIS CONSULT Patient is referred by Dr. Lisa Ganta for an opinion regarding GP and my final recommendations will be communicated back to the requesting physician by way of a copy of today's office notes. PRESENTING COMPLAINT & HISTORY Anastacio is a 40 yr old male w/hx of IBS, paranoid schizophrenia, DM2, HTN, and cholecystectomy that was diagnosed with gastroparesis 05/2021 after having an abnormal gastric emptying study showing 64% retention at 4 hours. Symptoms started after cholecystectomy in 2014. Denies nausea and vomiting. Has reflux, unsure if he is still taking pantoprazole. Patient is a poor historian on medical history. Denies bloating. Has abd pain from umbilicus to lower abd. Pain does not seem to be related to eating per patient. Reports stable weight. Had diarrhea a few weeks ago about 4 x per day for 2-3 days and is not constipated with an average bm 1-2 x per week. No laxatives. C/o lack of appetite and early satiety. Diet: 2-3 small portions. Drinks a nutrition drink in the morning. Diabetes diagnosed about 4 years ago, Hgb A1C 9.0 (06/20/21), denies neuropathy. Has not been on prokinetics. The pain is constant and is unchanged by any oral intake or bowel movements. The DM is uncomplicated. He has a diastasis vs hernia. The early satiety and fullness has been present for at least 3yrs. Gastroparesis Symptoms Nausea:No Vomiting: No Reflux/heartburn: Yes unsure if he is still taking Abdominal bloating: No Abdominal pain/discomfort: Yes from umbilicus into lower abdomen. Pain does not seem to be related to eating. Weight loss: stable Weight gain: stable Diarrhea: Had diarrhea 2-3 days about 4 x per day that resolved. Constipation: yes has a bm 1-2 x per week. Lack of appetite: Yes Early feeling of fullness when eating: Yes Malnutrition: No MEDICATION HISTORY Promotility Drugs - Reglan (Metoclopramide): No - Motilium (Domperidone): No - Erythromycin (E-mycin): No - Propulsid (Cisapride)_: No Other - Tricyclic Antidepressants (nortriptyline - Pamelor; amitriptyline - Elavil): No - Buspirone (Buspar): No - Mirtazapin (Remeron): No Anti-Nausea Medications - Compazine (Prochlorperazine): No - Phenergan (Promethazine): No - Benadryl (Diphenhydramine): No - Zofran (Ondansetron): No - Scopace (Scopolamine Patch): No - Tigan (Trimethobenzamide)_: No Constipation Medications - Bulking Agents (Metamucil,Citrucel, Fibercon): No - Osmotic Laxatives (MOM, Polyethylene glycol (PEG), lactulose, sorbitol,MiraLax, Chronulal, Cephulac,Xylitol): No - Stimulant Laxatives (Ex-Lax, Senokot,Correctol, Dulcolax): No - Stool Softeners (Colace): No - Chloride Channel Activator (Amitiza): No - Linzess: No - Trulance: No - Motegrity: No Pain Medications - Does the patient see a set painter for chronic abdominal pain?No - Is the patient taking narcotic pain medication for chronic abdominal pain? No - Narcotic Medications: (Tramadol, Fentanyl, codeine, hydrocodone, Hydromorphone, methadone, morphine, Oxycodone) No Drug use - History or current drug use (Marijuana, Cocaine, Heroine, etc...) No Eating Disorders - Does the patient have a history of eating disorders No Psychiatric Disorders - Does the patient have a history of psychiatric disorders including PTSD: Yes If yes, please explain: depression, schizophrenia, and bipolar Nutrition - Has the patient met with a policy services representative for diet recommendations with Gastroparesis? No - Jejunostomy (J-tube): _No - Gastrostomy (G-tube): No - Gastro-Jejunostomy (GJ-tube): _No - Nasojejunal (NJ-tube): _No - Nasogastric (NG-tube): _No - TPN (IV): _No Medical Records - Has the patient had a smart capsule study completed? No - Does the patient have a history of any foregut surgery (vagotomy, hiatal hernia repair/BRYAN Fundoplication, Heller Myotomy, gastrectomy, gastric bypass)?No If surgery, recent UGI? No - EGD: Yes - Botox Injections: No Patient Name Anastacio Posey Age [age] year old Gastroparesis Consult Test Date Completed Results Labs EGD 04/19 2021 [facility] Impression: - Z-line regular, 40 cm from the incisors. - A medium amount of food (residue) in the stomach. Biopsied. - Normal examined duodenum. No specimens collected. Gastric Emptying Study 05/24 2021 [facility] RESULT: Solid study demonstrates: - 94% gastric retention at 1hr (normal range, 37-90%), - 83% retention at 2hr (normal range, 30-60%), and - 64% retention at 4hr (normal range, 0-10%). There is no evidence of accelerated emptying of gastric contents, with 94% retention at 1hr (rapid emptying is <30% retention at 1hr). IMPRESSION: DELAYED RATE OF GASTRIC EMPTYING OF SOLID MEAL. CT Abd/Pelvis 03/29 2021 [facility] IMPRESSION: No acute process identified involving the abdomen or pelvis. Small periumbilical fat-containing hernia. Hepatic steatosis. Diverticulosis without evidence of diverticulitis. Pulmonary nodularity. Additional findings noted above. Consults GI PAST SURGICAL HISTORY Procedure Laterality Date ABDOMINAL SURGERY HX COLONOSCOP W/ OR W/O BRSH SPEC 02/25/2013 EGD W/O OR W/BRUSH/WASH 04/19/2021 LAPAROSCOPIC CHOLEYCYSTECTOMY 09/11/2015 Current Outpatient Medications Medication Sig Dispense Refill Blood Pressure Monitor Use as directed. 1 Each 0 SITagliptin (JANUVIA) 100 mg tablet Take 1 tablet by mouth once daily. 30 tablet 5 empagliflozin (JARDIANCE) 10 mg tablet Take 1 tablet by mouth daily with breakfast. 30 tablet 5 amLODIPine (NORVASC) 5 mg tablet Take 1 tablet by mouth once daily. 30 tablet 5 lisinopril (ZESTRIL, PRINIVIL) 20 mg tablet Take 1 tablet by mouth once daily. 30 tablet 5 metFORMIN (GLUCOPHAGE) 500 mg tablet Take 2 tablets by mouth twice daily with meals. Diabetes. 120 tablet 6 blood sugar diagnostic (BLOOD GLUCOSE TEST) test strip Test blood sugar(s) 1x daily. Dx: Type 2 DM. Insulin: No (Patient not taking: Reported on 06/20/2021 ) 50 Strip 11 Lancets lancets Test blood sugar(s) 1x times daily. Dx: Type 2 DM - Uncontrolled E11.65 Insulin: No (Patient not taking: Reported on 06/20/2021 ) [address] (PROTONIX) 20 mg tablet Take 1 tablet by mouth daily before breakfast. Take on empty stomach, 1/2 hr before meal. 30 tablet 1 No current facility-administered medications for this visit. ALLERGIES No Known Allergies Family History Problem Relation Age of Onset Heart Mother Atrial fibrilation Thyroid Mother hypothyroidism Lipids Mother high cholesterol Hypertension Father Diabetes Father Obesity Father Asthma Sister Hypertension Sister Thyroid Sister hypothyroidism Cancer Sister Lipids Sister Obesity Sister Tics Brother Psychiatry Brother schizophrenia Heart Brother enlarged heart Obesity Brother Ischemic Heart Disease Maternal Uncle Social History Tobacco Use Smoking status: Former Smoker Packs/day: 0.50 Years: 7.00 Pack years: 3.50 Quit date: 12/31/2013 Years since quittin.6 Smokeless tobacco: Never Used Substance Use Topics Alcohol use: No Drug use: No GI SPECIFIC ROS Difficulty swallowing / foods sticking in throat: No Hoarseness: No Chronic cough: No Regurgitation: Yes Chest pain: No Recent change in bowel movements: No Bloody or black, bowel movements: No Loss of control of bowel movements: No Night sweats, fever, chills: No Thought or memory problems: No Fluid in abdomen (ascites): No Prominent leg swelling: No Vomiting blood: No REVIEW OF SYSTEMS GENERAL: No weight loss, malaise or fevers HEENT: Negative for frequent or significant headaches, No changes in hearing or vision, no nose bleeds or other nasal problems RESPIRATORY: Negative for cough, hemoptysis, wheezing, COPD, dyspnea or shortness of breath CARDIOVASCULAR: Negative for chest pain, leg swelling, hypertension, CHF or palpitations : No history of dysuria, frequency or incontinence BUSINESS OFFICE ASSISTANT: NA MUSCULOSKELETAL: Negative for joint pain or swelling, back pain or muscle pain SKIN: Negative for lesions, rash, and itching PSYCH: Negative for sleep disturbance, mood disorder and recent psychosocial stressors ENDOCRINE: See HPI NEURO: No history of headaches, syncope, paralysis, seizures or tremors PHYSICAL EXAMINATION There were no vitals taken for this visit. General appearance: alert and in no acute distress Skin: Skin color, texture, turgor normal, no suspicious rashes or lesions Head: normal Eyes: Anicteric sclera. Pupils are equally round and reactive to light. Extraocular movements are intact. Ears: External ears normal, canals clear Nose/Sinuses: Negative Oropharynx: Lips, mucosa, and tongue normal, teeth and gums normal, oropharynx normal Neck: Supple, no adenopathy; thyroid symmetric, normal size, no bruits Back: motor and sensory appear to be normal Lungs: Unlabored on room air Heart: RRR without murmur, gallop, or rubs. No ectopy Abdomen: diastasis vs umbilical hernia Extremities: Negative findings: No deformities present Musculoskeletal: Negative findings: No deformities present Peripheral pulses: Normal Neuro: Negative findings: speech normal, mental status intact, cranial nerves 2-12 intact Plan Given the risk of autoimmune gastrointestinal dysmotility (AGID) as a possible cause for this patient's symptoms, as well as the fact the patient has yet to be evaluated for AGID, a full workup will be undertaken. If the antibody tests reveal a positive result the patient will then need to be treated with IVIG therapy as this is the only known treatment available at this time for AGID. See orders for further work up. Anastacio Rosenbaum DO 08/14/2021 documented in this encounter [facility] 01-28-2022 History of Presen t illness Narrative 1. Type 2 diabetes mellitus with both eyes affected by moderate nonproliferative retinopathy without macular edema, without long-term current use of insulin (HCC) Risk of diabetic changes and vision loss can be minimized by tight control of blood sugar, blood pressure, and cholesterol levels. Educated patient to continue care with primary care doctor and/or business initiatives manager to maintain optimum levels as they are important to avoid ocular complications. Encouraged patient to call the office immediately with any changes to vision or visual concerns. Advised to not wait until the next scheduled exam. Advised to use warm compresses for oily tear film Follow-up in 6 months or sooner with any changes in vision Ana Bhandari, JUANY January 28, 2022 10:20 AM documented in this encounter [facility] 01-03-2022 Miscellaneous Notes NOV 04/09/22 CARLOS 10/23/21 Patient electronically sent a request for the following prescription(s) Pending Prescriptions Disp Refills LISINOPRIL 20 MG TABLET 30 tablet 0 Sig: Take 1 tablet by mouth once daily BERNADETTE: Yes Patient aware RX will be sent to pharmacy. No need to notify patient. Please review. Gardenia Rivas MA documented in this encounter [facility] 11-30-2021 Miscellaneous Notes Patient is scheduled on 02/20/22 with all 3 providers. Schedule New GP with DR. Rosenbaum, Dr. Pressley, and Dr. Samuel. ( states possible empties research candidate for Dr. Pressley) This would be a good EMPTIES trial have him see me and mark at least possibly ahmet Records are in [facility] for review documented in this encounter [facility] documented as of this encounter (statuses as of 12/19/2021) [facility]07-[facility]2021 History of Past illness Narrative* Problem Noted Date Resolved Date Early satiety 04/19/2021 04/19/2021 Balanitis 11/25/2016 06/20/2021 Gall stones 08/15/2015 01/16/2016 Overview: Seen on ER CT 07/30/2015 Well adult exam 08/29/2014 05/17/2016 Overview: Last done 08/29/2014 Left knee pain 07/20/2014 01/16/2016 Overview: contussion and abrassion from fall. IBS (irritable bowel syndrome) 01/19/2014 0 01/16/2016 documented as of this encounter (statuses as of 01/03/2022) [facility] History of Past illness Narrative* Problem Noted Date Resolved Date Early satiety 04/19/2021 04/19/2021 Balanitis 11/25/2016 06/20/2021 Gall stones 08/15/2015 01/16/2016 Overview: Seen on ER CT 07/30/2015 Well adult exam 08/29/2014 05/17/2016 Overview: Last done 08/29/2014 Left knee pain 07/20/2014 01/16/2016 Overview: contussion and abrassion from fall. IBS (irritable bowel syndrome) 01/19/2014 0 01/16/2016 documented as of this encounter (statuses as of 01/28/2022) [facility] History of Past illness Narrative* Problem Noted Date Resolved Date Early satiety 04/19/2021 04/19/2021 Balanitis 11/25/2016 06/20/2021 Gall stones 08/15/2015 01/16/2016 Overview: Seen on ER CT 07/30/2015 Well adult exam 08/29/2014 05/17/2016 Overview: Last done 08/29/2014 Left knee pain 07/20/2014 01/16/2016 Overview: contussion and abrassion from fall. IBS (irritable bowel syndrome) 01/19/2014 0 01/16/2016 documented as of this encounter (statuses as of 02/20/2022) [facility] History of Past illness Narrative* Problem Noted Date Resolved Date Early satiety 04/19/2021 04/19/2021 Balanitis 11/25/2016 06/20/2021 Gall stones 08/15/2015 01/16/2016 Overview: Seen on ER CT 07/30/2015 Well adult exam 08/29/2014 05/17/2016 Overview: Last done 08/29/2014 Left knee pain 07/20/2014 01/16/2016 Overview: contussion and abrassion from fall. IBS (irritable bowel syndrome) 01/19/2014 0 01/16/2016 documented as of this encounter (statuses as of 02/28/2022) [facility] History of Past illness Narrative* Problem Noted Date Resolved Date Early satiety 04/19/2021 04/19/2021 Balanitis 11/25/2016 06/20/2021 Gall stones 08/15/2015 01/16/2016 Overview: Seen on ER CT 07/30/2015 Well adult exam 08/29/2014 05/17/2016 Overview: Last done 08/29/2014 Left knee pain 07/20/2014 01/16/2016 Overview: contussion and abrassion from fall. IBS (irritable bowel syndrome) 01/19/2014 0 01/16/2016 documented as of this encounter (statuses as of 03/07/2022) [facility] History of Past illness Narrative* Problem Noted Date Resolved Date Early satiety 04/19/2021 04/19/2021 Balanitis 11/25/2016 06/20/2021 Gall stones 08/15/2015 01/16/2016 Overview: Seen on ER CT 07/30/2015 Well adult exam 08/29/2014 05/17/2016 Overview: Last done 08/29/2014 Left knee pain 07/20/2014 01/16/2016 Overview: contussion and abrassion from fall. IBS (irritable bowel syndrome) 01/19/2014 0 01/16/2016 documented as of this encounter (statuses as of 03/11/2022) [facility] History of Past illness Narrative* Problem Noted Date Resolved Date Early satiety 04/19/2021 04/19/2021 Balanitis 11/25/2016 06/20/2021 Gall stones 08/15/2015 01/16/2016 Overview: Seen on ER CT 07/30/2015 Well adult exam 08/29/2014 05/17/2016 Overview: Last done 08/29/2014 Left knee pain 07/20/2014 01/16/2016 Overview: contussion and abrassion from fall. IBS (irritable bowel syndrome) 01/19/2014 0 01/16/2016 documented as of this encounter (statuses as of 03/13/2022) [facility] History of Past illness Narrative* Problem Noted Date Resolved Date Early satiety 04/19/2021 04/19/2021 Balanitis 11/25/2016 06/20/2021 Gall stones 08/15/2015 01/16/2016 Overview: Seen on ER CT 07/30/2015 Well adult exam 08/29/2014 05/17/2016 Overview: Last done 08/29/2014 Left knee pain 07/20/2014 01/16/2016 Overview: contussion and abrassion from fall. IBS (irritable bowel syndrome) 01/19/2014 0 01/16/2016 documented as of this encounter (statuses as of 05/16/2022) [facility] History of Past illness Narrative* Problem Noted Date Resolved Date Early satiety 04/19/2021 04/19/2021 Balanitis 11/25/2016 06/20/2021 Gall stones 08/15/2015 01/16/2016 Overview: Seen on ER CT 07/30/2015 Well adult exam 08/29/2014 05/17/2016 Overview: Last done 08/29/2014 Left knee pain 07/20/2014 01/16/2016 Overview: contussion and abrassion from fall. IBS (irritable bowel syndrome) 01/19/2014 0 01/16/2016 documented as of this encounter (statuses as of 05/20/2022) [facility] History of Past illness Narrative* Problem Noted Date Resolved Date Early satiety 04/19/2021 04/19/2021 Balanitis 11/25/2016 06/20/2021 Gall stones 08/15/2015 01/16/2016 Overview: Seen on ER CT 07/30/2015 Well adult exam 08/29/2014 05/17/2016 Overview: Last done 08/29/2014 Left knee pain 07/20/2014 01/16/2016 Overview: contussion and abrassion from fall. IBS (irritable bowel syndrome) 01/19/2014 0 01/16/2016 documented as of this encounter (statuses as of 05/23/2022) [facility] History of Past illness Narrative* Problem Noted Date Resolved Date Early satiety 04/19/2021 04/19/2021 Balanitis 11/25/2016 06/20/2021 Incomplete RBBB 08/30/2015 06/10/2022 Gall stones 08/15/2015 01/16/2016 Overview: Seen on ER CT 07/30/2015 Well adult exam 08/29/2014 05/17/2016 Overview: Last done 08/29/2014 Left knee pain 07/20/2014 01/16/2016 Overview: contussion and abrassion from fall. IBS (irritable bowel syndrome) 01/19/2014 0 01/16/2016 documented as of this encounter (statuses as of 06/10/2022) [facility] History of Past illness Narrative* Problem Noted Date Diagnosed Date Resolved Date Early satiety 04/19/2021 04/19/2021 Balanitis 11/25/2016 06/20/2021 Incomplete RBBB 08/30/2015 06/10/2022 Gall stones 08/15/2015 01/16/2016 Overview: Seen on ER CT 07/30/2015 Well adult exam 08/29/2014 05/17/2016 Overview: Last done 08/29/2014 Left knee pain 07/20/2014 01/16/2016 Overview: contussion and abrassion from fall. IBS (irritable bowel syndrome) 01/19/2014 01/16/2016 documented as of this encounter (statuses as of 05/23/2023) [facility] History of Past illness Narrative* Problem Noted Date Diagnosed Date Resolved Date Early satiety 04/19/2021 04/19/2021 Balanitis 11/25/2016 06/20/2021 Incomplete RBBB 08/30/2015 06/10/2022 Gall stones 08/15/2015 01/16/2016 Overview: Seen on ER CT 07/30/2015 Well adult exam 08/29/2014 05/17/2016 Overview: Last done 08/29/2014 Left knee pain 07/20/2014 01/16/2016 Overview: contussion and abrassion from fall. IBS (irritable bowel syndrome) 01/19/2014 01/16/2016 documented as of this encounter (statuses as of 06/30/2023) [facility] History of Past illness Narrative* Problem Noted Date Diagnosed Date Resolved Date Early satiety 04/19/2021 04/19/2021 Balanitis 11/25/2016 06/20/2021 Incomplete RBBB 08/30/2015 06/10/2022 Gall stones 08/15/2015 01/16/2016 Overview: Seen on ER CT 07/30/2015 Well adult exam 08/29/2014 05/17/2016 Overview: Last done 08/29/2014 Left knee pain 07/20/2014 01/16/2016 Overview: contussion and abrassion from fall. IBS (irritable bowel syndrome) 01/19/2014 01/16/2016 documented as of this encounter (statuses as of 07/04/2023) [facility] History of Past illness Narrative* Problem Noted Date Diagnosed Date Resolved Date Early satiety 04/19/2021 04/19/2021 Balanitis 11/25/2016 06/20/2021 Incomplete RBBB 08/30/2015 06/10/2022 Gall stones 08/15/2015 01/16/2016 Overview: Seen on ER CT 07/30/2015 Well adult exam 08/29/2014 05/17/2016 Overview: Last done 08/29/2014 Left knee pain 07/20/2014 01/16/2016 Overview: contussion and abrassion from fall. IBS (irritable bowel syndrome) 01/19/2014 01/16/2016 documented as of this encounter (statuses as of 07/09/2023) [facility] History of Past illness Narrative* Problem Noted Date Diagnosed Date Resolved Date Early satiety 04/19/2021 04/19/2021 Balanitis 11/25/2016 06/20/2021 Incomplete RBBB 08/30/2015 06/10/2022 Gall stones 08/15/2015 01/16/2016 Overview: Seen on ER CT 07/30/2015 Well adult exam 08/29/2014 05/17/2016 Overview: Last done 08/29/2014 Left knee pain 07/20/2014 01/16/2016 Overview: contussion and abrassion from fall. IBS (irritable bowel syndrome) 01/19/2014 01/16/2016 documented as of this encounter (statuses as of 07/14/2023) [facility] History of Past illness Narrative* Problem Noted Date Diagnosed Date Resolved Date Early satiety 04/19/2021 04/19/2021 Balanitis 11/25/2016 06/20/2021 Incomplete RBBB 08/30/2015 06/10/2022 Gall stones 08/15/2015 01/16/2016 Overview: Seen on ER CT 07/30/2015 Well adult exam 08/29/2014 05/17/2016 Overview: Last done 08/29/2014 Left knee pain 07/20/2014 01/16/2016 Overview: contussion and abrassion from fall. IBS (irritable bowel syndrome) 01/19/2014 01/16/2016 documented as of this encounter (statuses as of 07/28/2023) [facility]07-29-2021 History of Past illness Narrative* Problem Noted Date Diagnosed Date Resolved Date Early satiety 04/19/2021 04/19/2021 Balanitis 11/25/2016 06/20/2021 Incomplete RBBB 08/30/2015 06/10/2022 Gall stones 08/15/2015 01/16/2016 Overview: Seen on ER CT 07/30/2015 Well adult exam 08/29/2014 05/17/2016 Overview: Last done 08/29/2014 Left knee pain 07/20/2014 01/16/2016 Overview: contussion and abrassion from fall. IBS (irritable bowel syndrome) 01/19/2014 01/16/2016 documented as of this encounter (statuses as of 08/29/2023) [facility] No data available for this section [facility] Evaluation note* Diagnosis Essential hypertension Unspecified essential hypertension [facility]* Diagnosis Type 2 diabetes mellitus with both eyes affected by moderate nonproliferative retinopathy without macular edema, without long-term current use of insulin (HCC)- Primary [facility]* Diagnosis Gastroparesis- Primary [facility] Diagnosis Gastroparesis- Primary [facility]* Diagnosis Gastroparesis- Primary [facility]* Diagnosis Type 2 diabetes mellitus without complication, without long-term current use of insulin (HCC)- Primary Gastroparesis Dietary counseling and surveillance Dietary surveillance and counseling documented in this encounter [facility] note* Diagnosis Bruise- Primary Contusion of unspecified site Soft tissue mass Disorders of soft tissue, unspecified Essential hypertension Unspecified essential hypertension documented in this encounter [facility] note* Diagnosis Bruise- Primary Contusion of unspecified site Soft tissue mass Disorders of soft tissue, unspecified documented in this encounter [facility] note* Diagnosis Primary hypertension- Primary Unspecified essential hypertension Type 2 diabetes mellitus without complication, without long-term current use of insulin (HCC) Excessive cerumen in ear canal, bilateral Encounter for immunization Need for other specified prophylactic vaccination against single bacterial disease documented in this encounter [facility] note* Diagnosis Acute suprapubic pain- Primary Abdominal pain, other specified site Abdominal cramping Abdominal pain, unspecified site Bilateral impacted cerumen Impacted cerumen documented in this encounter [facility] note* Diagnosis Primary hypertension- Primary Unspecified essential hypertension Gastroparesis Lower abdominal pain Abdominal pain, other specified site Abdominal cramping Abdominal pain, unspecified site Type 2 diabetes mellitus without complication, without long-term current use of insulin (HCC) Encounter for therapeutic drug monitoring Screening, lipid Screening for lipoid disorders documented in this encounter [facility] note* Diagnosis Acute suprapubic pain Abdominal pain, other specified site Abdominal cramping Abdominal pain, unspecified site documented in this encounter [facility] note* Diagnosis Type 2 diabetes mellitus without complication, without long-term current use of insulin (HCC)- Primary Primary hypertension Unspecified essential hypertension Gastroparesis Obesity, Class I, BMI 30-34.9 Obesity, unspecified Encounter for therapeutic drug monitoring documented in this encounter [facility] for referral (narrative)* Diagnostic Procedure Only (Routine) - Authorized Specialty Diagnoses / Procedures Referred By Constantino t Referred To Contact US IMAGING Diagnoses Acute suprapubic pain Abdominal cramping Procedures US KIDNEY/BLADDER US RETROPERITONEAL REAL TIME W/IMAGE COMPLETE Evelyne Otto APRN.SURVEY RESEARCHER [address] [place] [address] Us Imaging [id number] Referral ID Status Reason Start Date Expiration Date Visits Requested Visits Authorized [id number] Authorized Auto-Generat ed Referral 05/23/2023 06/21/2024 1 1 [facility] Diagnostic Procedure Only (Routine) - Closed Specialty Diagnoses / Procedures Referred By Constantino day Referred To Contact US IMAGING Diagnoses Acute suprapubic pain Abdominal cramping Procedures US KIDNEY/BLADDER US RETROPERITONEAL REAL TIME W/IMAGE COMPLETE Evelyne Otto APRN.CNP [address] [place] [address] [place] [id number] Referral ID Status Reason Start Date Expiration Date V isits Requested Visits Authorized [id number] Closed Auto-Generate d Referral 05/23/2023 06/21/2024 1 1 [facility] Advance Directives No Advanced Directives Records FoundDocuments on File Type Date Recorded 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 In the event of a Fluress shortage, administer Hatch-Fluor 1 drop into both eyes as directed for applanation tonometry Given 01/28/2022 10:00 AM EDT 1 Drop PHENYLephrine 2.5 % 1 Drop (AK-DILATE, SINDHU-SYNEPHRINE) 1 Drop, BOTH EYES, DIRECTED, Starting on Fri01/28/22 at 1000, Until Fri01/28/22 at 2159, Administer for dilation PROTECT FROM LIGHT Given 01/28/2022 10:00 AM EDT 1 Drop tropicamide 1 % 1 Drop (MYDRIACYL) 1 Drop, BOTH EYES, DIRECTED, Starting on Fri01/28/22 at 1000, Until 01/28/22 at 2159, Administer for dilation Given 01/28/2022 10:00 AM EDT 1 Drop Reason for Referral Specialty Diagnoses / Procedures Referred By Contac t Referred To Contact Nutrition Diagnoses Gastroparesis Procedures CONSULT TO NUTRITION THERAPY OFFICE/OUTPATIENT [facility] 60-74 MINUTES Lionel Pressley MD [address] [place] [address] Referral ID Status Reason Start Date Expiration Date Visits Requested Visits Authorized [id number] Authorized PCP Requested Referral 02/20/2022 02/20/2023 1 1 Specialty Diagnoses / Procedures Referred By Contac t Referred To Contact General Surgery Diagnoses Lower abdominal pain Abdominal cramping Procedures CONSULT TO GENERAL SURGERY OFFICE/OUTPATIENT [facility] 60-74 MINUTES Evelyne Otto APRN.SURVEY RESEARCHER [address] [place] [address] Referral ID Status Reason Start Date Expiration Date Visits Requested Visits Authorized [id number] Authorized PCP Requested Referral 3 07/03/2024 1 1 Specialty Diagnoses / Procedures Referred By Contac t Referred To Contact Gastroenterology Diagnoses Lower abdominal pain Abdominal cramping Gastroparesis Procedures CONSULT TO GASTROENTEROLOGY OFFICE/OUTPATIENT [facility] 60-74 MINUTES Evelyne Otto APRN.SURVEY RESEARCHER [address] [place] [address] Referral ID Status Reason Start Date Expiration Date Visits Requested Visits Authorized [id number] Authorized PCP Requested Referral 3 07/03/2024 1 1 Summary Purpose Family History No Family History Records FoundNo Family History Records FoundNo Family History Records Found Additional Source Comments Source Comments (unrecognize d section and content) In the event this informatio n is protected by the Federal Confidentiality of Alcohol and Drug Abuse Patient Records regulations: The Federal rules restrict any use of the information to criminally investigate or prosecute any alcohol or drug abuse patient.[facility] the event this information is protected by the Federal Confidentiality of Alcohol and Drug Abuse Patient Records regulations: The Federal rules restrict any use of the information to criminally investigate or prosecute any alcohol or drug abuse patient.[facility] the event this information is protected by the Federal Confidentiality of Alcohol and Drug Abuse Patient Records regulations: The Federal rules restrict any use of the information to criminally investigate or prosecute any alcohol or drug abuse patient.[facility] the event this information is protected by the Federal Confidentiality of Alcohol and Drug Abuse Patient Records regulations: The Federal rules restrict any use of the information to criminally investigate or prosecute any alcohol or drug abuse patient.[facility] the event this information is protected by the Federal Confidentiality of Alcohol and Drug Abuse Patient Records regulations: The Federal rules restrict any use of the information to criminally investigate or prosecute any alcohol or drug abuse patient.[facility] the event this information is protected by the Federal Confidentiality of Alcohol and Drug Abuse Patient Records regulations: The Federal rules restrict any use of the information to criminally investigate or prosecute any alcohol or drug abuse patient.[facility] the event this information is protected by the Federal Confidentiality of Alcohol and Drug Abuse Patient Records regulations: The Federal rules restrict any use of the information to criminally investigate or prosecute any alcohol or drug abuse patient.[facility] the event this information is protected by the Federal Confidentiality of Alcohol and Drug Abuse Patient Records regulations: The Federal rules restrict any use of the information to criminally investigate or prosecute any alcohol or drug abuse patient.[facility] the event this information is protected by the Federal Confidentiality of Alcohol and Drug Abuse Patient Records regulations: The Federal rules restrict any use of the information to criminally investigate or prosecute any alcohol or drug abuse patient.[facility] the event this information is protected by the Federal Confidentiality of Alcohol and Drug Abuse Patient Records regulations: The Federal rules restrict any use of the information to criminally investigate or prosecute any alcohol or drug abuse patient.[facility] the event this information is protected by the Federal Confidentiality of Alcohol and Drug Abuse Patient Records regulations: The Federal rules restrict any use of the information to criminally investigate or prosecute any alcohol or drug abuse patient.[facility] the event this information is protected by the Federal Confidentiality of Alcohol and Drug Abuse Patient Records regulations: The Federal rules restrict any use of the information to criminally investigate or prosecute any alcohol or drug abuse patient.[facility] the event this information is protected by the Federal Confidentiality of Alcohol and Drug Abuse Patient Records regulations: The Federal rules restrict any use of the information to criminally investigate or prosecute any alcohol or drug abuse patient.[facility] the event this information is protected by the Federal Confidentiality of Alcohol and Drug Abuse Patient Records regulations: The Federal rules restrict any use of the information to criminally investigate or prosecute any alcohol or drug abuse patient.[facility] the event this information is protected by the Federal Confidentiality of Alcohol and Drug Abuse Patient Records regulations: The Federal rules restrict any use of the information to criminally investigate or prosecute any alcohol or drug abuse patient.[facility] the event this information is protected by the Federal Confidentiality of Alcohol and Drug Abuse Patient Records regulations: The Federal rules restrict any use of the information to criminally investigate or prosecute any alcohol or drug abuse patient.[facility] the event this information is protected by the Federal Confidentiality of Alcohol and Drug Abuse Patient Records regulations: The Federal rules restrict any use of the information to criminally investigate or prosecute any alcohol or drug abuse patient.[facility] the event this information is protected by the Federal Confidentiality of Alcohol and Drug Abuse Patient Records regulations: The Federal rules restrict any use of the information to criminally investigate or prosecute any alcohol or drug abuse patient.[facility] the event this information is protected by the Federal Confidentiality of Alcohol and Drug Abuse Patient Records regulations: The Federal rules restrict any use of the information to criminally investigate or prosecute any alcohol or drug abuse patient.[facility] the event this information is protected by the Federal Confidentiality of Alcohol and Drug Abuse Patient Records regulations: The Federal rules restrict any use of the information to criminally investigate or prosecute any alcohol or drug abuse patient.[facility] Reason for Visit (unrecogniz ed section and content) Reason Comments Refill Request Reason Comments Diabetes Reason Comments Gastroparesis New Patient Reason Comments Consult Reason Comments Patient Education Assessment Specialty Diagnoses / Procedures Referred By Constantino t Referred To Contact Nutrition Diagnoses Gastroparesis Procedures CONSULT TO NUTRITION THERAPY OFFICE/OUTPATIENT NEW HIGH MDM 60-74 MINUTES Lionel Pressley MD [address] [place] [address] Referral ID Status Reason Start Date Expiration Date V isits Requested Visits Authorized [id number] Closed PCP Requested Referral 02/20/2022 02/20/2023 1 1 Reason Comments Vomiting Reason Comments Bleeding/Bruising R arm bruised, lump x 4 days Reason Comments Clinical Update Reason Comments Recheck Bruise follow up Reason Comments Headache x 2 weeks. Center of forehead Reason Comments ER F/U [facility] ER 05/19/2023 fo r abdominal pain with vomiting Ear Problem trouble hearing out of ears and question serum impaction Reason Comments Recheck Abdominal pain Reason Comments Radiology US Specialty Diagnoses / Procedures Referred By Constantino t Referred To Contact US IMAGING Diagnoses Acute suprapubic pain Abdominal cramping Procedures US KIDNEY/BLADDER US RETROPERITONEAL REAL TIME W/IMAGE COMPLETE Evelyne Otto APRN.SURVEY RESEARCHER [address] [place] [address] Us Imaging [place] [address] Referral ID Status Reason Start Date Expiration Date V isits Requested Visits Authorized [id number] Closed Auto-Generate d Referral 05/23/2023 06/21/2024 1 1 Reason Comments Follow Up 4 weeks Care Teams (unrecognized sec tion and content) Power Brake Rebuilder Relationship Specialty Start Date End Date Lisa Matos MD [address] [place], [place] [address] PCP - General Internal Medicine 10/24/20 Monica Noriega mirian [address] [place], [place] [id number] Pharmacist Pharmacy 08/10/21 Power Brake Rebuilder Relationship Specialty Start Date End Date Lisa Matos MD [address] [place] [address] PCP - General Internal Medicine 10/24/20 MarshallMonica, [facility] [address] [place] [address] Pharmacist Pharmacy 08/10/21 Power Brake Rebuilder Relationship Specialty Start Date End Date Lisa Matos MD [address] [place] [address] PCP - General Internal Medicine 10/24/20 MarshallMonica, [facility] [address] [place] [address] Pharmacist Pharmacy 08/10/21 Power Brake Rebuilder Relationship Specialty Start Date End Date Lisa Matos MD [address] [place] [address] PCP - General Internal Medicine 10/24/20 MarshallMonica, [facility] [address] [place] [address] Pharmacist Pharmacy 08/10/21 Power Brake Rebuilder Relationship Specialty Start Date End Date Lisa Matos MD [address] [place] [address] PCP - General Internal Medicine 10/24/20 MarshallMonica, [facility] [address] [place] [address] Pharmacist Pharmacy 08/10/21 Power Brake Rebuilder Relationship Specialty Start Date End Date Lisa Matos MD [address] [place] [address] PCP - General Internal Medicine 10/24/20 MarshalloMnica, [facility] [address] [place] [address] Pharmacist Pharmacy 08/10/21 Power Brake Rebuilder Relationship Specialty Start Date End Date Preston Prado MD [address] [facility] [place] [address] PCP - General Internal Medicine 04/10/22 Marshall Monica, [facility] [address] [facility] [place] [address] Pharmacist Pharmacy 08/10/21 Power Brake Rebuilder Relationship Specialty Start Date End Date Preston Prado MD [address] [facility] [place] [address] PCP - General Internal Medicine 04/10/22 Marshall Monica, [facility] [address] [facility] [place] [address] Pharmacist Pharmacy 08/10/21 Power Brake Rebuilder Relationship Specialty Start Date End Date Preston Prado MD [address] [facility] [place] [address] PCP - General Internal Medicine 04/10/22 Marshall Monica, [facility] [address] [facility] [place] [address] Pharmacist Pharmacy 08/10/21 Power Brake Rebuilder Relationship Specialty Start Date End Date Preston Prado MD [address] [facility] [place] [address] PCP - General Internal Medicine 04/10/22 Marshall Monica, [facility] [address] [facility] [place] [address] Pharmacist Pharmacy 08/10/21 Power Brake Rebuilder Relationship Specialty Start Date End Date Preston Prado MD [address] [facility] [place] [address] PCP - General Internal Medicine 04/10/22 Marshall Monica, [facility] [address] [facility] [place] [address] Pharmacist Pharmacy 08/10/21 Power Brake Rebuilder Relationship Specialty Start Date End Date Preston Prado MD [address] [place] [address] PCP - General Internal Medicine 04/10/22 LeannMonica padgett, [facility] [address] [facility] [facility] [place] [address] Pharmacist Pharmacy 08/10/21 Power Brake Rebuilder Relationship Specialty Start Date End Date Preston Prado MD [address] [place] [address] PCP - General Internal Medicine 04/10/22 MarshallMonica padgett, [facility] [address] [place] [address] Pharmacist Pharmacy 08/10/21 Power Brake Rebuilder Relationship Specialty Start Date End Date Preston Prado MD [address] [place] [address] PCP - General Internal Medicine 04/10/22 MarshallMonica padgett, [facility] [address] [place] [address] Pharmacist Pharmacy 08/10/21 Power Brake Rebuilder Relationship Specialty Start Date End Date Preston Prado MD [address] [place] [address] PCP - General Internal Medicine 04/10/22 MarshallMonica, [facility] [address] [place] [address] Pharmacist Pharmacy 08/10/21 Power Brake Rebuilder Relationship Specialty Start Date End Date Preston Prado MD [address] [place] [address] PCP - General Internal Medicine 04/10/22 MarshallMonica, [facility] [address] [place], [place] [address] Pharmacist Pharmacy 08/10/21 Power Brake Rebuilder Relationship Specialty Start Date End Date Preston Prado MD [address] [place], [place] [id number] PCP - General Internal Medicine 04/10/22 MarshallMonica, [facility] [address] [facility], [place] [address] Pharmacist Pharmacy 08/10/21 (unrecognized sect ion and content) No Status Records FoundNo Status Records FoundNo Status Records Found INFORMATION SOURCE (unrecogn ized section and content) DATE CREATED AUTHOR AUTHOR'S ORGANIZ ATION 04/10/2023 [facility] ([place]) DATE CREATED AUTHOR AUTHOR'S ORGANIZ ATION 10/22/2023 [facility] FOR RECORDS PERTAINING TO PATIENTS WHO ARE OR HAVE BEEN ENROLLED IN A CHEMICAL DEPENDENCY/SUBSTANCEABUSE PROGRAM, SOME INFORMATION MAY BE OMITTED. This clinical summary was aggregated from multiple sources. Caution should be exercised in using it in the provision of clinical care. This summary normalizes information from multiple sources, and as a consequence, information in this document may materially change the coding, format and clinical context of patient data. In addition, data may be omitted in some cases. CLINICAL DECISIONS SHOULD BE BASED ON THE PRIMARY CLINICAL RECORDS. [employer] [facility]. provides no warranty or guarantee of the accuracy or completeness of information in this document.
--- NOTE | 2023-11-02 17:02 | EDS_ITS ---
HPI <JEB Rodriguez - Last Filed: 11/02/23 17:08> History of Present Illness Chief Complaint: Dental Narrative Narrative: Patient is a 42-year-old male with history of psychiatric illness, chronic back pain presents emerged part with 3 days of left upper tooth pain. Patient states the pain is getting worse, it is causing to have a headache. He does not currently have a dentist. Patient denies any fever chills nausea or vomiting. PFSH <JEB Rodriguez - Last Filed: 11/02/23 17:08> [facility] Medical History Diabetes Hypertension Schizophrenia Home Medications lisinopril 20 mg tablet 20 mg PO DAILY 30 days #30 tabs 02/02/21 [Rx Last Taken Unknown] empagliflozin 25 mg tablet 25 mg PO DAILY 03/10/22 [History Last Taken Unknown] sitagliptin phosphate 100 mg tablet 100 mg PO DAILY 03/10/22 [History Last Taken Unknown] amlodipine 5 mg tablet 5 mg PO DAILY 03/11/22 [History Last Taken Unknown] metformin 500 mg tablet 1,000 tab PO BID 03/11/22 [History Last Taken Unknown] sildenafil 100 mg tablet 1 tab PO PRN PRN Erectile Dysfunction 03/11/22 [History Last Taken Unknown] dicyclomine 10 mg capsule 20 mg (2 x 10 mg) PO Q6H PRN PRN abdominal pain #20 CAPSULES 07/14/23 [Rx Last Taken Unknown] ondansetron 4 mg disintegrating tablet 8 mg (2 x 4 mg) PO Q8H PRN PRN Nausea #20 tabs 07/14/23 [Rx Last Taken Unknown] naproxen 500 mg tablet (Naprosyn) 500 mg PO BID PRN pain #20 tabs 11/02/23 [Rx Last Taken Unknown] penicillin V potassium 500 mg tablet 500 mg PO 4X/DAY #40 tabs 11/02/23 [Rx Last Taken Unknown] Allergy/AdvReac Type Severity Reaction Status Date / Time No Known Allergies Allergy Verified 11/02/23 16:22 Family History Brother CAD (coronary artery disease) Surgical History History of cholecystectomy Social History household members: spouse current occupational status: disabled Smoking Status: Former smoker alcohol intake: never substance use type: does not use ROS <JEB Rodriguez - Last Filed: 11/02/23 17:08> ROS ED ROS Narrative Constitutional: Negative for fever, chills, weight loss, weakness Eyes: Negative for vision loss, vision change, double vision ENT: Negative for any sore throat, ear pain, congestion. Positive for left jaw pain Cardiovascular: Negative for any chest pain, tightness, palpitations Respiratory: Negative for any cough, sputum production, hemoptysis, dyspnea, dyspnea on exertion, orthopnea Gastrointestinal: Negative for any abdominal pain, nausea, vomiting, diarrhea, constipation, blood in stool, blood in vomit : Negative for any urinary frequency, dysuria, retention, blood in urine Muscle skeletal: Negative for any neck pain, back pain Neurological: Negative for any syncope, dizziness. Positive for headache Skin: Negative for any rashes, itching, abrasions, lacerations Psychiatric: Negative for any depression, anxiety, stress, suicidal ideation, homicidal ideation Hematologic: Negative for any excessive bruising, easy bleeding EXAM <JEB Rodriguez - Last Filed: 11/02/23 17:08> Physical Exam Narrative Exam Narrative: Vital signs reviewed. HEET: Head normocephalic atraumatic, TMs clear bilaterally. Posterior pharynx is clear, moist mucous membranes. Nares clear bilaterally. Patient does have poor dentition, patient does have a slightly broken tooth to left upper premola r, patient has no drainable abscess, he has no trismus. No evidence of any deep tissue infection. Neck: Supple with no lymphadenopathy or tenderness. No signs of meningismus. Cardiac: Regular rate and rhythm no murmurs gallops or rubs, equal peripheral pulses bilaterally. Respiratory: Lungs clear to auscultation bilaterally. No chest tenderness. Abdomen: Soft, nontender, nondistended. No abdominal bruit or pulsatile masses. No hepatosplenomegaly Extremities: No peripheral edema, no signs of gross trauma or deformity. Active full range of motion of all extremities. Neuro: Cranial nerves II through XII intact, no focal neurological deficits. Skin: Clean dry and intact with no rash, purpura, petechiae, vesicles or pustules. Backs/flank: No CVA tenderness, no midline spinal tenderness, no deformity. Psych: Normal mood and affect. No SI, HI or acute psychosis. Const Vital Signs: 11/02/23 16:21 Temperature 98.1 F Temperature Source Temporal Pulse Rate 110 H Respiratory Rate 16 Blood Pressure 177/125 H Blood Pressure Mean 142 Pulse Ox 100 Oxygen Delivery Method Room Air <Dr. Frantz Connors MD - Last Filed: 11/02/23 18:36> Physical Exam Const Vital Signs: 11/02/23 16:21 Temperature 98.1 F Temperature Source Temporal Pulse Rate 110 H Respiratory Rate 16 Blood Pressure 177/125 H Blood Pressure Mean 142 Pulse Ox 100 Oxygen Delivery Method Room Air [facility] <JEB Rodriguez - Last Filed: 11/02/23 17:08> [facility] Treatment and Re-Evaluation :: Patient appears generally well, patient appears nontoxic, vital signs are stable. Presenting to the emergency department with complaints of left upper jaw pain, left tooth pain. Differential diagnose includes irreversible pulpitis, fractured tooth,Ludwigs angina. Patient has no evidence of a deep tissue infection negative for any trismus. Upper and lower palate are soft. No evidence of a deep tissue infection. Patient placed on Pen-Vee K as well as naproxen. Patient be given a dental referral list. All questions answered stable for discharge. <Dr. Frantz Connors MD - Last Filed: 11/02/23 18:36> [facility] Narrative Medical decision making narrative: I have personally performed a face to face assessment of the patient and have reviewed the DEZ Note. I performed a substantive portion of the visit including all aspects of the following. My jimenez findings include: History: Patient presents with left upper dental pain. No fevers chills nausea or vomiting. No trouble swallowing. No trauma to the area. Exam: Patient does have a cavity in the lateral aspect of molar on the upper left. Mild gum erythema but no swelling. No visible abscess Medical Decision Making: Patient will be treated with antibiotics nonsteroidals and follow-up with dentist Discharge Plan Triage Chief Complaint: Dental ED Midlevel Provider: Eliu Stewart ED Provider: Frantz Connors Dx/Rx/DC Orders Clinical Impression: Dental infection Instructions: ED Dental Abscess, ED Tooth Abscess Prescriptions: New penicillin V potassium 500 mg tablet 500 mg PO 4X/DAY Qty: 40 0RF naproxen [Naprosyn] 500 mg tablet 500 mg PO BID PRN (Reason: pain) Qty: 20 0RF No Action lisinopril 20 mg Tablet 20 mg PO DAILY 30 Days Qty: 30 0RF sitagliptin phosphate 100 mg Tablet 100 mg PO DAILY empagliflozin 25 mg Tablet 25 mg PO DAILY metformin 500 mg tablet 1,000 tab PO BID Patient Comments: TAKE 2 TABLETS BY MOUTH TWICE DAILY WITH MEALS amlodipine 5 mg tablet 5 mg PO DAILY Patient Comments: TAKE 1 TABLET BY MOUTH ONCE DAILY sildenafil 100 mg tablet 1 tab PO PRN PRN (Reason: Erectile Dysfunction) Patient Comments: TAKE 1 TABLET 30 MINUTES PRIOR TO INTERCOURSE, ON AN EMPTY STOMACH AND WITH SEXUAL STIMULATION IMMEDIATELY FOLLOWING. dicyclomine 10 mg capsule 20 mg PO Q6H PRN PRN (Reason: abdominal pain) Qty: 20 0RF ondansetron [ondansetron] 4 mg tablet,disintegrating 8 mg PO Q8H PRN PRN (Reason: Nausea) Qty: 20 0RF Primary Care Provider: Nasra Rice NP Referrals: Nasra Rice NP, [facility] [Primary Care Provider] - Activity Restrictions/Additional Instructions: Please follow-up outpatient. Use the dental referral list Disposition Disposition: Home, Self Care Discharge Date/Time: 11/02/23 17:20
[2023-11-02] MEDS: Ibuprofen 600 MG Tablet PO (17:10)
[2023-11-02] MEDS: Penicillin Vk 250 MG Tablet 500 MG PO (17:10)
== END 2023-11-02 17:20 | disposition home or self-care (01) ==
PROVIDERS: Emergency Provider Emergency Medicine; PCP Clinical Nurse Specialist; Visit Provider Emergency Medicine
DX: K04.7 Periapical abscess without sinus (principal); E11.9 Type 2 diabetes mellitus without complications; I10 Essential (primary) hypertension; Z79.84 Long term (current) use of oral hypoglycemic drugs; Z79.899 Other long term (current) drug therapy; Z87.891 Personal history of nicotine dependence
CPT/HCPCS: 99283

== ENCOUNTER 2023-11-28 12:05 | Emergency (ER) | payer SELFPAY ==
[2023-11-28 12:05] VITALS: BP 187/104; PULSE 105; RESP 16; TEMP 36.6; O2SAT 95; BMI 31.7
[2023-11-28 13:05] LABS: Absolute Lymphocyte Count 1.29 X10^3/uL (0.83-4.51); Absolute Neutrophil Count 12.5 X10^3/uL (2.0-7.7); Basophil# 0.07 X10^3/uL; Basophil% 0.5 % (0-1); Hematocrit 51.7 % (40-54); Hemoglobin 17.5 g/dL (13.0-16.5); Lymphocyte # 1.29 X10^3/ul (0.83-4.51); Lymphocyte % 8.9 % (19-41); Mean Corp Hgb Conc 33.8 g/dL (32-36); Mean Corpuscular Hgb 29.6 pg (27.0-32.0); Mean Corpuscular Volume 87.5 fL (80-94); Mean Platelet Vol. 11.7 fl (6.2-12.0); Monocyte# 0.54 X10^3/uL; Monocyte% 3.7 % (0-10); NRBC Flagged by Analyzer 0 % (0-5); Neutrophil # 12.53 X10^3/uL (2.7-7.7); Neutrophil % 86.4 % (47-70); Platelet Count 411 K/mm3 (150-450); RBC Distribution Width CV 13.1 % (11.6-14.6); RBC Distribution Width SD 41.5 fl (35.1-43.9); Red Blood Count 5.91 M/mm3 (4.6-6.2); White Blood Count 14.5 K/mm3 (4.4-11.0)
[2023-11-28 13:22] LABS: ALB/GLOB Ratio 0.9 RATIO (0.9-2.4); AST(SGOT) 15 U/L (15-37); Alanine Aminotransfer ALT/SGPT 24 U/L (16-61); Albumin, Serum 4.1 g/dL (3.2-5.0); Alkaline Phosphatase 84 U/L (45-117); Anion Gap 15 (5-15); BUN 19 mg/dL (7-18); BUN/Creat Ratio 21.4 RATIO (10-20); Calcium,Total 9.8 mg/dL (8.5-10.1); Chloride 95 mmol/L (98-107); Creatinine, Serum 0.89 mg/dL (0.70-1.30); EST Glomerular Filtration Rate 100 mL/min (>60); Est Glom Filt Rate - Afr Amer 121 mL/min (>60); Globulin 4.5 g/dL (2.2-4.2); Glucose 359 mg/dL (74-106); Potassium 3.8 mmol/L (3.5-5.1); Protein, Total 8.6 g/dL (6.4-8.2); Sodium Level 135 mmol/L (136-145)
--- NOTE | 2023-11-28 14:12 | ED.VIS.GI ---
HPI HPI - GI History of Present Illness Chief Complaint: Abd Pain Narrative Narrative: 42-year-old male presenting with epigastric pain. States has had this in the past. When asked how long ago he had the pain, he tells me to check the medical record. He states it has been maybe a year ago. He is not sure what medications were given for him to help him with the symptoms. When asked if he followed up with his primary care provider he does state that he did, but he also states that he had abdominal pain and nausea and vomiting for 2 months. He states that he was given medications from his primary care physician for follow-up and does not recall what those medications were. He states he did not require any other intervention or surgery. Currently has not had any fevers, chills. He states his pain is similar and he scribes as sharp and just below the umbilicus. No history of kidney stones. No urinary complaints. No constipation or diarrhea. Patient states that nothing makes it worse or better. He admits to nonstop nausea and vomiting for the last 3 days. He states he is not able to tolerate p.o. flu or food. [facility] Medical History Diabetes Hypertension Schizophrenia Home Medications lisinopril 20 mg tablet 20 mg PO DAILY 30 days #30 tabs 02/02/21 [Rx Last Taken Unknown] empagliflozin 25 mg tablet 25 mg PO DAILY 03/10/22 [History Last Taken Unknown] sitagliptin phosphate 100 mg tablet 100 mg PO DAILY 03/10/22 [History Last Taken Unknown] amlodipine 5 mg tablet 5 mg PO DAILY 03/11/22 [History Last Taken Unknown] metformin 500 mg tablet 1,000 tab PO BID 03/11/22 [History Last Taken Unknown] sildenafil 100 mg tablet 1 tab PO PRN PRN Erectile Dysfunction 03/11/22 [History Last Taken Unknown] dicyclomine 10 mg capsule 20 mg (2 x 10 mg) PO Q6H PRN PRN abdominal pain #20 CAPSULES 07/14/23 [Rx Last Taken Unknown] ondansetron 4 mg disintegrating tablet 8 mg (2 x 4 mg) PO Q8H PRN PRN Nausea #20 tabs 07/14/23 [Rx Last Taken Unknown] naproxen 500 mg tablet (Naprosyn) 500 mg PO BID PRN pain #20 tabs 11/02/23 [Rx Last Taken Unknown] penicillin V potassium 500 mg tablet 500 mg PO 4X/DAY #40 tabs 11/02/23 [Rx Last Taken Unknown] metoclopramide HCl 10 mg tablet (Reglan) 10 mg PO Q6H PRN nausea and vomiting #20 tabs 11/28/23 [Rx Last Taken Unknown] polyethylene glycol 3350 17 gram/dose oral powder (Miralax) 17 g PO DAILY PRN constipation #119 grams 11/28/23 [Rx Last Taken Unknown] Allergy/AdvReac Type Severity Reaction Status Date / Time No Known Allergies Allergy Verified 11/28/23 12:06 Family History Brother CAD (coronary artery disease) Surgical History History of cholecystectomy Social History household members: spouse current occupational status: disabled Smoking Status: Former smoker alcohol intake: never substance use type: does not use ROS ROS ED Constitutional Constitutional ED: Denies chills, fever(s) or sweats Eyes Eyes: Denies blurry vision or change in vision ENT ENT ED: Denies ear pain or sore throat Cardiovascular Cardiovascular: Denies chest pain, palpitations or racing heartbeat Respiratory/Chest Respiratory/Chest: Denies cough, dyspnea or sputum Gastrointestinal Gastrointestinal: Reports abdominal pain, nausea and vomiting; Denies constipation or diarrhea Genitourinary Genitourinary ED: Denies dysuria, hematuria or urinary frequency Musculoskeletal Musculoskeletal: Denies arthralgias, myalgias or neck pain Integumentary Denies abscess, Abrasions or rash Neurologic Neurologic: Denies headache(s), paresthesias or weakness Psychiatric Psychiatric: Denies anxiety, depression, suicidal ideation or suicidal thoughts Endocrine Endocrinology: Denies polydipsia or polyuria EXAM Physical Exam Const Vital Signs: 11/28/23 12:05 Temperature 98 F Temperature Source Temporal Pulse Rate 105 H Respiratory Rate 16 Blood Pressure 187/104 H Blood Pressure Mean 131 Pulse Ox 95 Oxygen Delivery Method Room Air Positive well nourished General Appearance ED: NAD; Negative for pallor HEENT Reports moist mucous membranes normocephalic and atraumatic Eyes PERRL and EOMs intact bilaterally Resp normal respiratory effort and clear to auscultation bilaterally Auscultation: Negative for rales, rhonchi or wheezes Cardio regular rate and regular rhythm GI Palpation: tender periumbilical and suprapubic Back/Spine no CVA tenderness Neuro CN's II-XII intact bilaterally Sensorium / Orientation: alert Motor Exam: strength 5/5 throughout Psych mental status grossly normal Skin General Skin Exam: Negative for jaundice or pallor MDM MDM MDM Narrative Medical decision making narrative: Patient presenting with abdominal pain. States been ongoing for last 3 days. He states he is also had nausea and vomiting. Denies chills. Patient states that when he was seen last he does not know what was given to him for symptoms either by the ER physician or by primary care follow-up. He does state that he did not have to have any intervention. He states his last episode was about a year ago. Review of the medical record shows that this has happened 3 or 4 times since February of last year with no diagnosis. CBC will be obtained to assess white blood cell count, hemoglobin, platelets. BMP to assess renal function, drugs, glucose, LFTs to assess for liver function. Urinalysis to assess for UTI or occult blood. CT of the abdomen pelvis will be obtained. Patient medicated with Toradol and Zofran. Patient has mild leukocytosis at 14.5. Hemoglobin 17.5. Renal Function Electrolytes Are Normal. Urinalysis Negative. CT of the Abdomen Pelvis Identifies Constipation without Other Acute Finding. States There Is a Moderate Stool [place]. On Reevaluation Patient Still Having a Little Bit of Discomfort but Is Comfortable I Will Send Him Home on Nausea Medication and Counseled Him to use MiraLAX for the next 3 days to clear his bowels. Return precautions discussed. Impression: 1. Constipation 2. Abdominal pain Lab Data Attestation: I reviewed the patient's lab results. Labs: Laboratory Results - last 24 hr 11/28/23 11/28/23 12:51 15:04 WBC 14.5 H RBC 5.91 Hgb 17.5 H Hct 51.7 MCV 87.5 MCH 29.6 MCHC 33.8 RDW Std Deviation 41.5 RDW Coeff of Tobias 13.1 Plt Count 411 MPV 11.7 Immature Gran % (Auto) 0.500 Neut % (Auto) 86.4 H Lymph % (Auto) 8.9 L [place] % (Auto) 3.7 Eos % (Auto) 0.0 Baso % (Auto) 0.5 Absolute Neuts (auto) 12.5 H Absolute Lymphs (auto) 1.29 Nucleated RBC % 0 Sodium 135 L Potassium 3.8 Chloride 95 L Carbon Dioxide 25.0 Anion Gap 15 BUN 19 H Creatinine 0.89 Estim Creat Clear Calc 141.50 Est GFR (MDRD) Af Amer 121 Est GFR (MDRD) Non-Af 100 BUN/Creatinine Ratio 21.4 H Glucose 359 H Calcium 9.8 Total Bilirubin 0.90 AST 15 ALT 24 Alkaline Phosphatase 84 Total Protein 8.6 H Albumin 4.1 Globulin 4.5 H Albumin/Globulin Ratio 0.9 Urine Color Yellow Urine Clarity Clear Urine pH 5.0 Ur Specific [place] 1.025 Urine Protein 30 H Urine Glucose (UA) 1000 H Urine Ketones 150 A* Urine Occult Blood Negative Urine Nitrite Negative Urine Bilirubin Negative Urine Urobilinogen Normal Ur Leukocyte Esterase Negative Urine RBC 0 SEEN Urine WBC 0 SEEN Ur Squamous Epith Cells 0 SEEN Urine Bacteria 0 SEEN Urine Mucus 0 SEEN Radiography Diagnostic Testing: Clinical Impression(s) from Imaging Studies Abdomen/Pelvis CT 11/28/23 14:20 IMPRESSION: Colonic diverticulosis without acute diverticulitis. Moderate stool in the colon. Hepatic steatosis. Cholecystectomy. Pancreatic atrophy. Electronically Signed: Maryellen Mahoney MD at 15:47 EST Reading Location ID and State: [facility] Tel , Service support , Discharge Plan Triage Chief Complaint: Abd Pain ED Provider: Sandeep Mccray Dx/Rx/DC Orders Instructions: ED Constipation (Adult), ED Abdominal Pain Unkn Cause Male... Prescriptions: New polyethylene glycol 3350 [Miralax] 17 gram/dose powder 17 g PO DAILY PRN (Reason: constipation) Qty: 119 0RF metoclopramide HCl [Reglan] 10 mg tablet 10 mg PO Q6H PRN (Reason: nausea and vomiting) Qty: 20 0RF No Action lisinopril 20 mg Tablet 20 mg PO DAILY 30 Days Qty: 30 0RF sitagliptin phosphate 100 mg Tablet 100 mg PO DAILY empagliflozin 25 mg Tablet 25 mg PO DAILY metformin 500 mg tablet 1,000 tab PO BID Patient Comments: TAKE 2 TABLETS BY MOUTH TWICE DAILY WITH MEALS amlodipine 5 mg tablet 5 mg PO DAILY Patient Comments: TAKE 1 TABLET BY MOUTH ONCE DAILY sildenafil 100 mg tablet 1 tab PO PRN PRN (Reason: Erectile Dysfunction) Patient Comments: TAKE 1 TABLET 30 MINUTES PRIOR TO INTERCOURSE, ON AN EMPTY STOMACH AND WITH SEXUAL STIMULATION IMMEDIATELY FOLLOWING. dicyclomine 10 mg capsule 20 mg PO Q6H PRN PRN (Reason: abdominal pain) Qty: 20 0RF ondansetron [ondansetron] 4 mg tablet,disintegrating 8 mg PO Q8H PRN PRN (Reason: Nausea) Qty: 20 0RF penicillin V potassium 500 mg tablet 500 mg PO 4X/DAY Qty: 40 0RF naproxen [Naprosyn] 500 mg tablet 500 mg PO BID PRN (Reason: pain) Qty: 20 0RF Primary Care Provider: Nasra Rice NP Referrals: Nasra Rice NP, HOROLOGIST-C [Primary Care Provider] - Disposition Disposition: Home, Self Care
--- NOTE | 2023-11-28 14:20 | CT_ITS ---
HISTORY: abdominal pain. TECHNIQUE: Helically acquired images were obtained of the abdomen and pelvis after the intravenous administration of 100mL Isovue-300. A radiation dose optimization technique was used for this scan. 465 images. COMPARISON: 07/14/2023. FINDINGS: LOWER CHEST: Lung bases clear. BOWEL: Bowel including appendix nondilated. Moderate stool in the colon. Colonic diverticulosis without focal inflammatory change observed. PERITONEUM: No significant ascites. LIVER: Fatty infiltration. GALLBLADDER/BILIARY TREE: Absent gallbladder. SPLEEN: Homogeneous and nonenlarged. PANCREAS: Atrophic. No peripancreatic inflammation. KIDNEYS/ADRENAL GLANDS: Unremarkable. VESSELS: No abdominal aortic aneurysm. PELVIC ORGANS: Unremarkable. ABDOMINAL WALL: Small fat-containing inguinal hernias. BONES: Mild degenerative change. Scattered small bone islands of the pelvis and hips. CT/Abdomen/Pelvis W IV Cont ONLY IMPRESSION: Colonic diverticulosis without acute diverticulitis. Moderate stool in the colon. Hepatic steatosis. Cholecystectomy. Pancreatic atrophy. Electronically Signed: Maryellen Mahoney MD at 15:47 EST ,
[2023-11-28] MEDS: Ketorolac 15 MG/ML Vial IV (15:00)
[2023-11-28] MEDS: Ondansetron 4 MG/2 ML Vial IV (15:00)
[2023-11-28 15:14] LABS: Bacteria 0 SEEN /hpf (None Seen); Mucous, Urine 0 SEEN /hpf (<or=2+); Red Blood Cells-Urine 0 SEEN /hpf (0-5); Squamous Epithelial Cells - UA 0 SEEN /hpf (0-5); White Blood Cells 0 SEEN /hpf (0-5)
[2023-11-28 15:18] LABS: Color, Urine Yellow (Yellow); Glucose, Dipstick 1000 mg/dl (Normal); Leukocyte Esterase-Dipstick Negative /ul (Negative); Nitrite-Dipstick Negative (Negative); Occult Blood-Urine Negative /ul (Negative); Protein-Dipstick 30 mg/dl (Negative); Specific Gravity, Urine 1.025 (1.002-1.030); Urine Bilirubin Dipstick Negative (Negative); Urine Clarity Clear (Clear); Urine Urobilinogen Normal (Normal)
[2023-11-28 15:25] LABS: Ketone-Dipstick 150 mg/dl (Negative)
[2023-11-28 16:48] VITALS: BP 139/88; PULSE 72; RESP 16; TEMP 36.8; O2SAT 97
== END 2023-11-28 16:55 | disposition home or self-care (01) ==
PROVIDERS: Emergency Provider Student in an Organized Health Care Education/Training Program; PCP Clinical Nurse Specialist; Visit Provider Student in an Organized Health Care Education/Training Program
DX: K59.00 Constipation, unspecified (principal); F20.9 Schizophrenia, unspecified; E11.9 Type 2 diabetes mellitus without complications; R10.13 Epigastric pain; Z87.891 Personal history of nicotine dependence
CPT/HCPCS: 74177; 80053; 81001; 85025; 96374; 96375; 99283; Q9967; A4216; J2405

== ENCOUNTER 2024-10-09 16:01 | Emergency (ER) | payer MEDICAID, SELFPAY ==
[2024-10-09 16:02] VITALS: BP 185/120; PULSE 97; RESP 18; TEMP 36.1; O2SAT 98; BMI 31.4
--- NOTE | 2024-10-09 16:44 | EDS_ITS ---
HPI HPI - GI History of Present Illness Chief Complaint: Abd Pain Informant: patient and spouse/S.O. Abdominal Pain/Flank Pain Onset: Days Context: Gradual Onset Timing: Intermittent Quality: Aching Location: - (Periumbilical discomfort.) Current Severity: Gone Maximum Severity: Mild Nausea/Vomiting/Emesis GI Symptom: Positive for Nausea, Vomiting and - (Resolved several days ago.) Severity: Mild Diarrhea/Melena/Hematochezia GI Symptom: Negative for Diarrhea, Melena or Hematochezia Associated Symptoms Associated Symptoms: Negative for Dysuria, Frequency, Hematuria or Urgency Narrative Narrative: 43-year-old male history of prior cholecystectomy. Diabetes and hypertension. Said abdominal pain is never had diagnosed for years. He said over the last week he has had periumbilical abdominal pain. He had some mild nausea and vomiting that resolved several days ago. He is urinating normally. He is having normal bowel movements. He is not having any diarrhea or melena. He has had no fever. No abdominal trauma. He was concerned he may have a hernia. Prior similar symptoms: Yes Recent Illness/Hospitalization: No [facility] Medical History Schizophrenia Diabetes Hypertension Home Medications ?Medication ?Instructions ?Recorded ?Last Taken ?Type lisinopril 20 mg tablet 20 mg PO DAILY 30 days #30 tabs 02/02/21 Unknown Rx empagliflozin 25 mg tablet 25 mg PO DAILY 03/10/22 Unknown History sitagliptin phosphate 100 mg tablet 100 mg PO DAILY 03/10/22 Unknown History amlodipine 5 mg tablet 5 mg PO DAILY 03/11/22 Unknown History metformin 500 mg tablet 1,000 tab PO BID 03/11/22 Unknown History sildenafil 100 mg tablet 1 tab PO PRN PRN Erectile 03/11/22 Unknown History Dysfunction dicyclomine 10 mg capsule 20 mg (2 x 10 mg) PO Q6H PRN PRN 07/14/23 Unknown Rx abdominal pain #20 CAPSULES ondansetron 4 mg disintegrating 8 mg (2 x 4 mg) PO Q8H PRN PRN 07/14/23 Unknown Rx tablet Nausea #20 tabs naproxen 500 mg tablet (Naprosyn) 500 mg PO BID PRN pain #20 tabs 11/02/23 Unknown Rx penicillin V potassium 500 mg 500 mg PO 4X/DAY #40 tabs 11/02/23 Unknown Rx tablet metoclopramide HCl 10 mg tablet 10 mg PO Q6H PRN nausea and 11/28/23 Unknown Rx (Reglan) vomiting #20 tabs polyethylene glycol 3350 17 17 g PO DAILY PRN constipation 11/28/23 Unknown Rx gram/dose oral powder (Miralax) #119 grams ondansetron 4 mg disintegrating 4 mg PO Q6H PRN nausea and 10/09/24 Unknown Rx tablet vomiting #7 tabs Allergy/AdvReac Type Severity Reaction Status Date / Time No Known Allergies Allergy Verified 10/09/24 16:02 Family History Brother CAD (coronary artery disease) Surgical History History of cholecystectomy Social History household members: spouse current occupational status: disabled Smoking Status: Former smoker alcohol intake: never substance use type: does not use ROS ROS ED ROS Narrative Abdominal pain nausea and vomiting resolved. Constitutional Constitutional ED: Denies chills or fever(s) ENT ENT ED: Denies ear pain Cardiovascular Cardiovascular: Denies chest pain Respiratory/Chest Respiratory/Chest: Denies cough or dyspnea Gastrointestinal Gastrointestinal: Reports abdominal pain, nausea and vomiting; Denies constipation, diarrhea or melena Genitourinary Genitourinary ED: Denies dysuria or hematuria Musculoskeletal Musculoskeletal: Denies arthralgias Integumentary Denies abscess Neurologic Neurologic: Denies headache(s) Psychiatric Psychiatric: Denies anxiety or depression Endocrine Endocrinology: Denies polydipsia or polyphagia Hematologic/Lymphatic Hematologic/Lymphatic: Denies easy bleeding, easy bruising or lymphadenopathy Allergic/Immunologic Allergic/Immunologic ED: Denies mouth swelling, tongue swelling or urticaria EXAM Physical Exam Narrative Exam Narrative: Well-appearing 43-year-old male. Vital signs stable afebrile. He does not look septic toxic. He is in no distress. at bedside. H EENT exam unremarkable. Pupils round react light. Moist mucous membranes. Neck nontender. Lungs clear to auscultation bilateral. Heart regular rate and rhythm rate about 95 no murmur. Chest wall and ribs nontender. Abdomen soft, nondistended normal bowel sounds no peritoneal signs. When the patient lies flat and bears down he has a ventral hernia anterior to his umbilicus. It is above it. It easily reduces on its own. There is no incarcerated or strangulated hernia. There is no bowel obstruction. He has no right upper or right lower quadrant tenderness. There is no pulsatile mass. Moving all 4 extremities. Nontender no edema. He is awake and alert. No focal motor deficits. Const Vital Signs: 10/09/24 16:02 Temperature 97 F L Temperature Source Temporal Pulse Rate 97 Respiratory Rate 18 Blood Pressure 185/120 H Blood Pressure Mean 141 Pulse Ox 98 Oxygen Delivery Method Room Air Positive well nourished, well developed and obese; Negative for cachectic, contractures or unkempt General Appearance ED: well developed; Negative for unkempt, cachectic, contractures or pallor Nutritional Appearance: obese; Negative for cachectic HEENT normocephalic and atraumatic; Negative for trauma or tenderness Eyes PERRL and EOMs intact bilaterally Neck no lymphadenopathy, supple and no JVD Resp normal respiratory effort and clear to auscultation bilaterally Cardio regular rate, regular rhythm, S1 normal heart sound, S2 normal heart sound and no murmurs GI non-tender, non-distended and no masses GI Narrative: Has a ventral hernia above his umbilicus. Easily reduces on its own. There is no incarcerated or strangulated hernia. There is no obstruction. The rest of his abdomen is completely nontender. Inspection: Negative for abdominal distention Auscultation: normoactive bowel sounds Palpation: soft and hernia ventral; Negative for tender, guarding, rigid, pulsatile mass or rebound tenderness present Back/Spine no CVA tenderness Extremity full ROM General Extremety ED: Negative for edema or tenderness General Extremity: Negative for edema Neuro CN's II-XII intact bilaterally and moves all extremities Sensorium / Orientation: alert, oriented to person, oriented to place and oriented to time Motor Exam: strength 5/5 throughout; Negative for general weakness Psych Appearance: Negative for unkempt Skin no wounds General Skin Exam: Negative for jaundice or pallor Lesions: no lesions Rashes: no rashes Trauma: Negative for abrasion Nails: Negative for discolored MDM MDM MDM Narrative Medical decision making narrative: 43-year-old male history of diabetes. Has a ventral hernia that easily reduces on its own. We discharged home. Motrin Tylenol for pain. Follow-up with local surgeon. He has been referred to Dr. Kristopher Bautista who is on-call for no doc. Patient knows to return if he develops an incarcerated or strangulated hernia or signs of obstruction. His abdomen is benign. He will be given Zofran as needed for nausea. I reviewed prior workups has had multiple CAT scans in the past. History & Record Review Discussion w/independent historian: Patient and Family Additional record(s) reviewed:: Prior inpatient record, Prior outpatient record, Prior ED visit, Prior labs and No prior records Discharge Plan Triage Chief Complaint: Abd Pain ED Provider: Dale Coffey Dx/Rx/DC Orders Clinical Impression: Abdominal pain, Ventral hernia Instructions: ED Hernia (Adult) Prescriptions: New ondansetron 4 mg tablet,disintegrating 4 mg PO Q6H PRN (Reason: nausea and vomiting) Qty: 7 0RF No Action lisinopril 20 mg Tablet 20 mg PO DAILY 30 Days Qty: 30 0RF sitagliptin phosphate 100 mg Tablet 100 mg PO DAILY empagliflozin 25 mg Tablet 25 mg PO DAILY metformin 500 mg tablet 1,000 tab PO BID Patient Comments: TAKE 2 TABLETS BY MOUTH TWICE DAILY WITH MEALS amlodipine 5 mg tablet 5 mg PO DAILY Patient Comments: TAKE 1 TABLET BY MOUTH ONCE DAILY sildenafil 100 mg tablet 1 tab PO PRN PRN (Reason: Erectile Dysfunction) Patient Comments: TAKE 1 TABLET 30 MINUTES PRIOR TO INTERCOURSE, ON AN EMPTY STOMACH AND WITH SEXUAL STIMULATION IMMEDIATELY FOLLOWING. dicyclomine 10 mg capsule 20 mg PO Q6H PRN PRN (Reason: abdominal pain) Qty: 20 0RF ondansetron [ondansetron] 4 mg tablet,disintegrating 8 mg PO Q8H PRN PRN (Reason: Nausea) Qty: 20 0RF penicillin V potassium 500 mg tablet 500 mg PO 4X/DAY Qty: 40 0RF naproxen [Naprosyn] 500 mg tablet 500 mg PO BID PRN (Reason: pain) Qty: 20 0RF polyethylene glycol 3350 [Miralax] 17 gram/dose powder 17 g PO DAILY PRN (Reason: constipation) Qty: 119 0RF metoclopramide HCl [Reglan] 10 mg tablet 10 mg PO Q6H PRN (Reason: nausea and vomiting) Qty: 20 0RF Primary Care Provider: Alice Otto NP Referrals: Kristopher Bautista MD [Med Staff - Active Staff] - As soon as possible (Call their office on Friday morning after 9 AM. They can get you scheduled for an appointment to have your hernia evaluated.) Nasra Rice NP, SENIOR RADIATION PROTECTION TECHNICIAN-C [Non-Staff] - Activity Restrictions/Additional Instructions: Motrin and Tylenol for pain You have a ventral hernia. It easily reduces. You need to follow-up with a general surgeon. Call their office on Friday. Get set up for an appointment. If you would start developing worsening pain or intractable vomiting you need to return. But this hernia easily reduces itself. If it would come out and get stuck and not reduce you need to be seen. You do not need it emergently repair ed today. Print Language: Albanian Disposition Disposition: Home, Self Care
[2024-10-09 16:50] VITALS: BP 158/116
[2024-10-09] MEDS: Lisinopril 20 MG Tablet PO (17:15)
[2024-10-09 18:01] VITALS: BP 148/104
== END 2024-10-09 18:53 | disposition home or self-care (01) ==
PROVIDERS: Emergency Provider Emergency Medicine; PCP Internal Medicine; Visit Provider Emergency Medicine
DX: K43.9 Ventral hernia without obstruction or gangrene (principal); E11.9 Type 2 diabetes mellitus without complications; I10 Essential (primary) hypertension; Z79.84 Long term (current) use of oral hypoglycemic drugs; Z79.899 Other long term (current) drug therapy; Z87.891 Personal history of nicotine dependence

== ENCOUNTER → 2024-12-16 | Outpatient (CLI) | payer MEDICAID, SELFPAY ==
[2024-12-16 12:50] LABS: Hepatitis B Surface Antibody Nonreactive; Hepatitis B Surface Antigen Nonreactive (Nonreactive); Hepatitis C Antibody Nonreactive (Nonreactive)
[2024-12-17 08:09] LABS: Hepatitis A AB, Total Negative (Negative); Hepatitis B Core Ab Total Negative (Negative)
== END | disposition home or self-care (01) ==
LOC: LAB 10:25
PROVIDERS: PCP Internal Medicine; Referring Provider Nurse Practitioner Acute Care; Visit Provider Nurse Practitioner Acute Care
DX: R11.14 Bilious vomiting (principal); R10.33 Periumbilical pain; R10.2 Pelvic and perineal pain; K76.0 Fatty (change of) liver, not elsewhere classified
CPT/HCPCS: 86704; 86706; 86708; 86803; 87340

== ENCOUNTER → 2024-12-25 | Outpatient (CLI) | payer MEDICAID, SELFPAY ==
--- NOTE | 2024-12-25 09:09 | US_ITS ---
PROCEDURE: ABD LIMITED W/ ELASTOGRAPHY 12/25/2024 REASON FOR EXAM: LIVER STEATOSIS TECHNIQUE: Real-time grayscale and Doppler ultrasound and Doppler velocity values were acquired per routine protocol. COMPARISON: None. FINDINGS: Liver is enlarged at 19 cm length. Liver is echogenic indicating steatosis. No intrahepatic or extrahepatic biliary ductal dilatation. Normal hepatopetal flow knee portal vein. Status post cholecystectomy. Limited pancreatic imaging is unremarkable. Right kidney size and cortical thickness are normal. Right kidney measured 11.6 cm L x 6.5 cm AP x 6.1 cm T Elastography measurements: Site a: 9.5 kPa. Site B 8.4 kPa. Site C: 10.2 kPa. Average kPa 9.4. US/ABD Limited w/ Elastography IMPRESSION: Metavir scores fall within the F2-F3 range Reading Location[facility]
== END | disposition home or self-care (01) ==
LOC: US 09:06
PROVIDERS: PCP Internal Medicine; Referring Provider Nurse Practitioner Acute Care; Visit Provider Nurse Practitioner Acute Care
DX: K76.0 Fatty (change of) liver, not elsewhere classified (principal)
CPT/HCPCS: 76705; 76981

== ENCOUNTER → 2025-02-04 | Outpatient (CLI) | payer MEDICAID, SELFPAY ==
--- NOTE | 2025-02-04 10:37 | NM_ITS ---
PROCEDURE: GASTRIC EMPTYING STUDY 02/04/2025 REASON FOR EXAM: GASTROPARESIS COMPARISON: None TECHNIQUE: The patient ingested a standard meal of oatmeal and 10 mCi of sulfur colloid and water. There was no vomiting postprandially. Anterior and posterior planar images of the upper abdomen were obtained for 1 minute immediately following the meal at 1h, 2h and 4h if more than 10% of the activity persisted within the stomach. Regions of interest were drawn, and a geometric mean was used to calculate a [id number]. RADIOPHARMACEUTICAL: Technetium sulfur colloid DOSE 1 mCimCi FINDINGS: Percent activity remaining in stomach: 1 hour 60 % (normal 37-90%) NM/Gastric Emptying Study IMPRESSION: Normal gastric emptying study. Reading Location: [id number]
== END | disposition home or self-care (01) ==
LOC: NM 10:36
PROVIDERS: PCP Internal Medicine; Referring Provider Internal Medicine; Visit Provider Internal Medicine
DX: K31.84 Gastroparesis (principal)
CPT/HCPCS: 78264; A9541

== ENCOUNTER 2025-02-24 06:36 | Day surgery (SDC) | payer MEDICAID, SELFPAY ==
--- NOTE | 2025-02-18 18:15 | PAT.ANE_ITS ---
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 When Was Last Pacemaker Check QUESTION #4 FULL TEXT: You/Your Family Experience fever (hyperthermia) with Anesthesia Last Oral Intake Last Oral intake: Last Oral Intake NPO since Meds taken in AM with sips of water? 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 Female No 02/18/25 16:02 HX of Motion Sickness No 02/18/25 16:02 HX of N/V After Surgery No 02/18/25 16:02 Non-Smoker Yes 02/18/25 16:02 Duration of Surgery greater No 02/18/25 16:02 than 60 minutes Number of Risk Factors 1 02/18/25 16:02 PONV Score Low Risk 02/18/25 16:02 Height & Weight Height & Weight: Anesthesia: Height & Weight Height 6 ft 1 in 12/16/24 09:33 Respiratory Assessment Respiratory Assessment - sergeant of corrections: Respiratory Tract Infection Hx - sergeant of 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 Has anyone observed you stop No 02/18/25 16:02 breathing during sleep? STOP Results Negative 02/18/25 16:02 QUESTION #5 FULL TEXT : Do you snore loudly (louder than talking or can be heard through closed doors)? 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 Specify any problems Hx of Preganancy in last 3 N/A 02/18/25 16:02 Months Nurse Filling Out Transfusion VCHRISTIN 02/18/25 16:02 & Questions: Date: 02/18/25 02/18/25 16:02 Time: 16:03 02/18/25 16:02 Patient unable to answer at this time (ie. confused, unrespo /Reproduction History /Reproductive History - sergeant of corrections: /Reproductive Hx- sergeant of corrections Hx Now Gestational Age (in weeks): EDC: Hx Hx Para Hx Section SAB PFSH Medical History (Updated 02/18/25 @ 16:02 by Milady Amado) Arthritis Migraine headache Non-smoker History of echocardiogram History of stress test History of CHF (congestive heart failure) Schizophrenia Diabetes Hypertension Home Medications ?Medication ?Instructions ?Recorded ?Last Taken ?Type metformin 500 mg tablet 1,000 tab PO BID 03/11/22 Un known History glimepiride 4 mg tablet 4 mg PO QAM 12/08/24 Unknown History lisinopril 40 mg tablet 40 mg PO QDAY 12/08/24 Unkno wn History pioglitazone 15 mg tablet 15 mg PO QDAY 12/08/24 Unkno wn History amlodipine 5 mg tablet 10 mg PO DAILY 12/16/24 Unkn own History atenolol 50 mg tablet 50 mg PO QDAY 12/16/24 Unkno wn History linaclotide 72 mcg capsule 72 mcg PO QAM constipation #30 caps 12/16/24 Unknown Rx (Linzess) dicyclomine 20 mg tablet 20 mg PO TID 02/18/25 Unknow n History Allergy/AdvReac Type Severity Reaction Status Date / Time No Known Allergies Allergy Verified 01/19/25 13:35 Family History Brother CAD (coronary artery disease) Surgical History (Updated 02/18/25 @ 16:02 by Milady Amado) History of laparoscopic cholecystectomy History of cholecystectomy Social History household members: spouse current occupational status: disabled Smoking Status: Former smoker alcohol intake: never substance use type: does not use Audit: Pertinent Findings Pertinent Findings EKG Perinent findings: January 31, 2021. Normal sinus rhythm. Stress test pertinent findings: February 01, 2021. EF is 65%. Negative perfusion study for reversible myocardial ischemia. Echo (EF%) pertinent findings: January 31, 2021. EF is 65%. No aortic stenosis is noted. Recommendation Anesthesia Recommendation Anesthesia recommendation: OPTIMIZED for anesthesia
[2025-02-24] VITALS (7 sets, daily range): BP systolic 143–165; BP diastolic 97–107; PULSE 18–71; RESP 16–18; TEMP 36.6–36.9; O2SAT 98–100; BMI 29.9
--- OUTSIDE RECORDS SUMMARY | 2025-02-24 06:40 | XMS RPT_ITS | CCD ---
Author Organization [facility] ion Partnership [facility] Care Team Providers Care Hand Collator Name Role Phone Lisa Matos MD Primary Care Provider [facility], [facility]ly Unavailable [facility], [facility]ly Unavailable Preston Novoa MD Primary Care Provider [facility], Aly Unavailable HUANG KEBEDE DO Primary Care Physician DANITA LUNA, SATNAM Cramer Attending Unavailable HUANG KEBEDE DO Primary Care Unavailable [facility], [facility]ly Unavailable Preston Novoa MD Primary Care Provider Preston Novoa MD Primary Care Provider Dwayne AUTOMOTIVE INTERNET SALES MANAGER.LEATHER TACKER, Nasra Unavailable Fam AUTOMOTIVE INTERNET SALES MANAGER.SOLAR PHOTOVOLTAIC CREW LEAD, Evelyne Unavailable Fam AUTOMOTIVE INTERNET SALES MANAGER.SOLAR PHOTOVOLTAIC CREW LEAD, Evelyne Unavailable BRIGHT PRESTON D Primary Care Unavailable DENYS LANDAVERDE Attending Unavailable TALAMPAS, PRESTON D Primary Care Unavailable ROSEANN MORTON Attending Unavailable TALAMPAS, PRESTON D Primary Care Unavailable TALAMPAS, PRESTON D Primary Care Unavailable CARITO KEY Referring Unavailable TALAMPAS, PRESTON D Primary Care Unavailable EVELYNE CHRISTIANSEN Attending Unavailable TALAMPGAURI, PRESTON D Primary Care Unavailable EVELYNE CHRISTIANSEN Referring Unavailable Alexx LUNA, Dr. Hunter Attending Provider [phone] Dr. Dale Coffey MD Emergency Provider [phone] Fam PRODUCT DEVELOPMENT SPECIALIST-C, Evelyne Primary Care Provider Fam PRODUCT DEVELOPMENT SPECIALIST-C, Evelyne Referring Provider Dr. Anastacio Bautista MD Attending Provider Mike PRODUCT DEVELOPMENT SPECIALIST-C, Malini Attending Provider Mike PRODUCT DEVELOPMENT SPECIALIST-C, Malini Referring Provider Malini Mckeon Attending Unavailable Fam PRODUCT DEVELOPMENT SPECIALIST, Evelyne Primary Care Unavailable Fam PRODUCT DEVELOPMENT SPECIALIST, Evelyne Referring Unavailable Fam PRODUCT DEVELOPMENT SPECIALIST, Evelyne Referring Unavailable Anastacio Bautista Attending Unavailable Fam PRODUCT DEVELOPMENT SPECIALIST, Evelyne Primary Care Unavailable Fam PRODUCT DEVELOPMENT SPECIALIST, Evelyne Primary Care Unavailable Michael James Attending Unavailable Jacob, Michael Referring Unavailable Dale Coffey Attending Unavailable Fam PRODUCT DEVELOPMENT SPECIALIST, Evelyne Primary Care Unavailable Fam PRODUCT DEVELOPMENT SPECIALIST, Evelyne Primary Care Unavailable Giovanny Sharma Attending Unavailable Fam PRODUCT DEVELOPMENT SPECIALIST, Evelyne Referring Unavailable Fam PRODUCT DEVELOPMENT SPECIALIST, Evelyne Primary Care Unavailable Omar Galeano Attending Unavailable Omar Galeano Referring Unavailable Fam PRODUCT DEVELOPMENT SPECIALIST, Evelyne Primary Care Unavailable Jacob, Michael Attending Unavailable Fam PRODUCT DEVELOPMENT SPECIALIST, Evelyne Primary Care Unavailable Malini Mckeon Attending Unavailable Malini Mckeon Referring Unavailable Fam PRODUCT DEVELOPMENT SPECIALIST, Evelyne Primary Care Unavailable Malini Mckeon Attending Unavailable Malini Mckeon Referring Unavailable Jacob Michael Attending Unavailable Fam PRODUCT DEVELOPMENT SPECIALIST, Evelyne Primary Care Unavailable Fam PRODUCT DEVELOPMENT SPECIALIST, Evelyne Referring Unavailable Medications Current Medications Medication Drug Class(es) Dates Sig (Normalized) Sig (Original) amLODIPine 5 mg oral tablet (20 sources) Dihydropyridine Calcium Channel Jaimee Start: 12-16-2024 take 2 tablets by mouth once daily Amlodipine 5 mg tablet Active 10 mg PO DAILY December 16, 2024 9:27am Start: 08-01-2023 take 1 tablet by regino th once daily amLODIPine (NORVASC) 10 mg tablet Indications: Primary hypertension Take 1 tablet by mouth once daily. 30 tablet 3 08/01/2023 Active Start: 02-13-2021 End: 12-16-2024 take 1 tablet by mouth once daily Amlodipine 5 mg tablet Discontinued 5 mg PO DAILY March 11, 2022 12:00am December 16, 2024 9:28am Comment on above: Take 1 tablet by regino th once daily. atenolol 50 mg oral tablet (10 sources) beta-Adrenergic Jaimee Start: 12-16-2024 take 1 tablet by mouth once daily Atenolol 50 mg tablet Active 50 mg PO daily December 16, 2024 12:00am Start: 10-21-2023 take 1 tablet by regino th once daily atenolol (TENORMIN) 50 mg tablet Indications: Primary hypertension Take 1 tablet by mouth once daily. 30 tablet 2 10/21/2023 Active benoxinate hydrochloride 4 mg/ml / fluorescein sodium 2.5 mg/ml ophthalmic solution (1 source) Diagnostic Dye Start: 01-28-2022 End: 01-28-2022 fluorescein-benoxinate 0.25-0.4 % 1 Drop (FLURESS) Blood Pressure Monitor (20 sources) Start: 08-10-2021 Blood Pressure Monitor Use as directed. 1 Each 08/10/2021 Active Start: 08-10-2021 Blood Pressure Monitor Use as directed. 1 Each 0 08/10/2021 Active Comment on above: Use as directed. cephalexin 500 mg oral capsule (4 sources) Cephalosporin Antibacterial Start: 4 End: 4 take 1 capsule by mouth four times daily cephALEXin (KEFLEX) 500 mg capsule Take 1 capsule by mouth four times daily for 5 days. 20 capsule 0 04/02/2024 04/07/2024 Active famotidine 40 mg oral tablet (1 source) Histamine-2 Receptor Antagonist Start: 3 Pepcid 40 mg oral tablet Dose : 40 mg = 1 tab(s), Oral, Daily, # 30 tab(s), 0 Refill(s), Abdominal pain for 2 weeks Start Date: 03/28/23 Status: Ordered glimepiride 4 mg oral tablet (13 sources) Sulfonylurea Start: 5 take 1 tablet by mouth once daily in the morning Glimepiride 4 mg tablet Active 4 mg PO EVERY MORNING December 08, 2024 12:00am Start: 08-29-2023 End: 04-02-2024 take 1 tablet by mouth once daily at breakfast glimepiride (AMARYL) 4 mg tablet Indications: Type 2 diabetes mellitus with hyperglycemia, without long-term current use of insulin (HCC) Take 1 tablet by mouth daily with breakfast. 90 tablet 2 04/02/2024 Active Start: 08-01-2023 End: 08-29-2023 take 1 tablet by mouth once daily at breakfast glimepiride (AMARYL) 2 mg tablet Indications: Type 2 diabetes mellitus without complication, without long-term current use of insulin ([facility]) Take 1 tablet by mouth daily with breakfast. 30 tablet 3 08/01/2023 08/29/2023 Discontinued Comment on above: Take 1 tablet by regino th daily with breakfast. linaclotide 0.072 mg oral capsule (2 sources) Guanylate Cyclase-C Agonist Start: take 1 capsule by mouth once daily 30 minutes before breakfast Linaclotide (Linzess) 72 mcg capsule Active 72 ug PO EVERY MORNING December 16, 2024 12:00am take 30 minutes before breakfast every morning lisinopril 40 mg oral tablet (20 sources) Angiotensin Converting Enzyme Inhibitor Start: take 1 tablet by mouth once daily Lisinopril 40 mg tablet Active 40 mg PO daily December 08, 2024 12:00am Start: 07-04-2023 End: 04-02-2024 take 1 tablet by mouth once daily lisinopril (ZESTRIL) 40 mg tablet Indications: Type 2 diabetes mellitus with hyperglycemia, without long-term current use of insulin ([facility]) , Primary hypertension Take 1 tablet by mouth once daily. 90 tablet 3 04/02/2024 Active Start: 02-02-2021 End: 12-08-2024 take 1 tablet by mouth once daily Lisinopril 20 mg Tablet Discontinued 20 mg PO DAILY 30 February 02, 2021 12:00am December 08, 2024 2:55pm Comment on above: Take 1 tablet by regino th once daily. Take 1 tablet by regino th once daily metFORMIN hydrochloride 500 mg oral tablet (20 sources) Biguanide Start: 03-11-2022 Metformin 500 mg tablet Active 1000 {tbl} PO TWICE A DAY March 11, 2022 12:00am Start: 10-23-2021 End: 04-02-2024 take 1 tablet by mouth twice daily at mealtime, then take 1 tablet by mouth at dinner metFORMIN (GLUCOPHAGE) 1,000 mg tablet Indications: Type 2 diabetes mellitus with hyperglycemia, without long-term current use of insulin ([facility]) Take 1 tablet by mouth two times a day with meals. Diabetes. DOSE CHANGE - TAKE ONE WITH BREAKFAST AND DINNER 180 tablet 3 04/02/2024 Active Start: 02-20-2018 take 1 tablet by regino twice daily Metformin Active 1000 TABLET PO TWICE A DAY March 10, 2022 11:00pm Start: 01-16-2017 End: 03-15-2017 take 1 tablet by mouth twice daily Metformin 500 MG tablet Discontinued 500 mg PO TWICE A DAY January 16, 2017 12:00am March 15, 2017 3:33pm Comment on above: Take 1 tablet by regino twice daily with meals. Diabetes. DOSE CHANGE - TAKE ONE WITH BREAKFAST AND DINNER Take 1 tablet by regino two times a day with meals. Diabetes. DOSE CHANGE - TAKE ONE WITH BREAKFAST AND DINNER metoclopramide 10 mg oral tablet (20 sources) Dopamine-2 Receptor Antagonist Start: 11-28-19 End: 12-17-19 take 1 tablet by mouth every six hours Metoclopramide Hcl (Reglan) 10 mg tablet Active 10 mg PO EVERY 6 HOURS December 16, 2024 10:12am Start: 10-21-2023 take 1 tablet by regino four times daily metoclopramide HCl (REGLAN) 10 mg tablet Indications: Gastroparesis Take 1 tablet by mouth four times daily. 120 tablet 4 10/21/2023 Active Start: 08-01-2023 End: 08-29-2023 take 1 tablet by mouth four times daily metoclopramide HCl (REGLAN) 5 mg tablet Indications: Gastroparesis Take 1 tablet by mouth four times daily. 120 tablet 2 08/29/2023 Active Start: 05-19-2023 End: 07-14-2023 take 1 tablet by mouth every eight hours as needed for nausea and vomiting Metoclopramide Hcl (Reglan) 10 mg tablet Discontinued 10 mg PO Q8H as needed for nausea and vomiting May 19, 2023 12:00am July 14, 2023 9:48am Start: 03-12-2022 End: 07-14-2023 take 1 tablet by mouth every six hours as needed for nausea and vomiting Metoclopramide Hcl (Reglan) 10 mg tablet Discontinued 10 mg PO EVERY 6 HOURS as needed for nausea and vomiting March 12, 2022 12:00am July 14, 2023 9:48am Comment on above: Take 1 tablet by regino th four times daily. omeprazole 20 mg delayed release oral capsule (1 source) Proton Pump Inhibitor Start: 3 omeprazole 20 mg oral delayed release capsule Dose : 20 mg = 1 cap(s), Oral, qDay, # 30 cap(s), 0 Refill(s) Start Date: 03/28/23 Status: Ordered pantoprazole 40 mg delayed release oral tablet (11 sources) Proton Pump Inhibitor Start: 5 take 1 tablet by mouth once daily 30 minutes before breakfast Pantoprazole 40 mg tablet,delayed release (DR/EC) Active 40 mg PO daily December 16, 2024 12:00am take 30 minutes before breakfast every morning Start: 02-02-2021 take 40 mg by mouth twice te y Pantoprazole Active 40 MG PO TWICE A DAY 60 February 02, 2021 12:00am Start: 01-31-2021 End: 02-02-2021 take 1 tablet by mouth once daily Pantoprazole (Protonix) 20 mg Tablet,Delayed Release (Dr/Ec) Discontinued 20 mg PO DAILY January 31, 2021 12:00am February 02, 2021 11:25am phenylephrine hydrochloride 25 mg/ml ophthalmic solution (1 source) alpha-1 Adrenergic Agonist Start: 01-28-2022 End: 01-28-2022 PHENYLephrine 2.5 % 1 Drop (AK-DILATE, SINDHU-SYNEPHRINE) pioglitazone 15 mg oral tablet (6 sources) Peroxisome Proliferator Receptor alpha Agonist, Peroxisome Proliferator Receptor gamma Agonist, Thiazolidinedione Start: 04-02-2024 take 1 tablet by mouth once daily Pioglitazone 15 mg tablet Active 15 mg PO daily December 08, 2024 12:00am tropicamide 10 mg/ml ophthalmic solution (1 source) Anticholinergic Start: 01-28-2022 End: 01-28-2022 tropicamide 1 % 1 Drop (MYDRIACYL) Completed/Discontinued Medications Medication Drug Class(es) Dates Sig (Normalized) Sig (Original) ARIPiprazole 5 mg oral tablet (8 sources) Atypical Antipsychotic Start: 10-24-2016 End: 03-14-2017 take 1 tablet by mouth at bedtime Aripiprazole 5 MG tablet Discontinued 5 mg PO AT BEDTIME October 24, 2016 1:00am March 14, 2017 12:26am 24 hr buPROPion hydrochloride 300 mg extended release oral tablet (8 sources) Aminoketone Start: 10-24-2016 End: 03-14-2017 take 1 tablet by mouth once daily Bupropion Hcl 300 MG Tab.Er.24h Discontinued 300 mg PO DAILY October 24, 2016 1:00am March 14, 2017 12:26am citalopram 20 mg oral tablet (8 sources) Serotonin Reuptake Inhibitor Start: 10-24-2016 End: 03-14-2017 take 1 tablet by mouth once daily Citalopram 20 MG tablet Discontinued 20 mg PO DAILY October 24, 2016 1:00am March 14, 2017 12:26am dicyclomine hydrochloride 10 mg oral capsule (20 sources) Anticholinergic Start: 07-14-2023 End: 12-16-2024 take 2 capsules by mouth every six hours as needed for pain Dicyclomine 10 mg capsule Discontinued 20 mg PO EVERY 6 HOURS NEEDED as needed for abdominal pain December 16, 2024 9:28am December 16, 2024 10:05am Start: 07-14-2023 take 20 mg by mouth every six hours as needed Dicyclomine Active 20 MG PO EVERY 6 HOURS NEEDED July 14, 2023 12:27pm Start: 07-04-2023 take 1 tablet by regino th at bedtime dicyclomine (BENTYL) 20 mg tablet Indications: Abdominal cramping Take 1 tablet by mouth before meals and at bedtime. 120 tablet 3 07/04/2023 Active Start: 05-23-2023 End: 07-04-2023 take 1 capsule by mouth three times daily as needed dicyclomine (BENTYL) 10 mg capsule Indications: Acute suprapubic pain , Abdominal cramping Take 1 capsule by mouth three times daily as needed. 90 capsule 0 05/23/2023 07/04/2023 Discontinued Start: 01-17-2017 End: 03-14-2017 take 2 capsules by mouth three times daily before mealtime as needed for pain Dicyclomine 10 MG capsule Discontinued 20 mg PO THREE TIMES DAILY BEFORE MEALS as needed for abd pain January 17, 2017 2:20am March 14, 2017 12:25am Start: 01-16-2017 End: 03-14-2017 take 2 capsules by mouth at bedtime Dicyclomine 10 MG capsule Discontinued 20 mg PO BEFORE MEALS AND AT BEDTIME January 16, 2017 12:00am March 14, 2017 12:25am Start: 01-16-2017 End: 03-14-2017 take 20 mg by mouth at bedtime Dicyclomine Discontinue d 20 MG PO BEFORE MEALS AND AT BEDTIME January 15, 2017 11:00pm March 13, 2017 11:25pm Start: 01-16-2017 End: 03-14-2017 take 20 mg by mouth three times daily before mealtime Dicyclomine Discontinued 20 MG PO THREE TIMES DAILY BEFORE MEALS January 17, 2017 1:20am March 13, 2017 11:25pm Comment on above: Take 1 capsule by mo ut three times daily as needed. Take 1 tablet by regino th before meals and at bedtime. empagliflozin 25 mg oral tablet (20 sources) Sodium-Glucose Cotransporter 2 Inhibitor Start: 2021 End: 2024 take 1 tablet by mouth once daily Empagliflozin 25 mg Tablet Discontinued 25 mg PO DAILY March 10, 2022 12:00am December 08, 2024 2:46pm Comment on above: Take 1 tablet by regino th daily with breakfast. enteric contrast (will be provided with radiology test) (1 source) Start: 2024 End: 2024 enteric contrast (will be provided with radiology test) For CT ABD/PEL W IVCON Routine order Administer, As Directed One Time Only, via Oral, Rectal, both Oral and Rectal, Enteric Tube, Stoma or Indwelling Catheter, Enteric Contrast as designated per enteric contrast guidelines 1 Each 10/11/2024 10/12/2024 hydroCHLOROthiazide 25 mg / lisinopril 20 mg oral tablet (8 sources) Thiazide Diuretic, Angiotensin Converting Enzyme Inhibitor Start: 2016 End: 2020 take 1 tablet by mouth twice daily Lisinopril-Hydrochlo rothiazide (Zestoretic) 1 EACH tablet Discontinued 1 {tbl} PO TWICE A DAY October 24, 2016 1:00am February 02, 2021 11:24am hydrOXYzine hydrochloride 25 mg oral tablet (8 sources) Antihistamine Start: 2016 End: 2016 take 1 tablet by mouth once daily Hydroxyzine Hcl 25 MG tablet Discontinued 25 mg PO DAILY October 24, 2016 1:00am March 14, 2017 12:25am ibuprofen 800 mg oral tablet (16 sources) Nonsteroidal Anti-inflammatory Drug Start: 2017 End: 2020 take 1 tablet by mouth three times daily as needed for pain Ibuprofen 800 MG tablet Discontinued 800 mg PO THREE TIMES A DAY as needed for Pain January 31, 2021 12:54pm February 02, 2021 11:23am iv contrast (will be provided with radiology test) (1 source) Start: 2024 End: 2024 iv contrast (will be provided with radiology test) CT ABD/PEL -Inject, intravenously, once for 1 dose.No IV access, insert saline lock prior to the beginning of sedation, infusion, injection of imaging exam. Discontinue saline lock post exam. If Pt. has a central line or IVAD, may access for administration according to line specific nursing protocol. Once exam is complete flush line and de-access according to line specific nursing protocol in the CT contrast administration guidelines link. 1 Each 10/11/2024 10/12/2024 naproxen 500 mg oral tablet (4 sources) Nonsteroidal Anti-inflammatory Drug Start: 2023 End: 2024 take 1 tablet by mouth twice daily as needed for pain Naproxen (Naprosyn) 500 mg tablet Discontinued 500 mg PO TWICE A DAY as needed for pain November 02, 2023 1:00am December 08, 2024 2:46pm ondansetron 4 mg disintegrating oral tablet (20 sources) Serotonin-3 Receptor Antagonist Start: 2024 End: 2024 take 1 tablet by mouth every six hours as needed for nausea and vomiting Ondansetron 4 mg tablet,disintegratin g Discontinued 4 mg PO EVERY 6 HOURS as needed for nausea and vomiting October 09, 2024 1:00am December 08, 2024 2:48pm Start: 07-14-2023 End: 12-08-2024 take 2 tablets by mouth every eight hours as needed for nausea Ondansetron 4 mg tablet,disintegrating Discontinued 8 mg PO EVERY 8 HOURS NEEDED as needed for Nausea July 14, 2023 12:00am December 08, 2024 2:48pm Start: 07-14-2023 take 8 mg by mouth e very eight hours as needed Ondansetron Active 8 MG PO EVERY 8 HOURS NEEDED July 13, 2023 11:00pm Start: 03-28-2023 End: 03-29-2023 Zofran 4 mg oral tablet Dose : 4 mg = 1 tab(s), PO, q8h, # 12 tab(s), 0 Refill(s), 03/29/23 17:40:00 EDT, Abdominal pain for 2 weeks Start Date: 03/28/23 Stop Date: 03/29/23 Status: Ordered Start: 03-10-2022 End: 07-14-2023 take 1 tablet by mouth every eight hours as needed for nausea Ondansetron 4 mg tablet,disintegrating Discontinued 4 mg PO EVERY 8 HOURS NEEDED as needed for Nausea May 19, 2023 12:00am July 14, 2023 9:48am penicillin v potassium 500 mg oral tablet (4 sources) Start: 11-02-2023 End: 12-08-2024 take 1 tablet by mouth four times daily Penicillin V Potassium 500 mg tablet Discontinued 500 mg PO 4 TIMES DAILY 40 November 02, 2023 1:00am December 08, 2024 2:48pm polyethylene glycol 3350 37325 mg powder for oral solution (3 sources) Osmotic Laxative Start: 11-28-2023 End: 12-16-2024 Polyethylene Glycol 3350 (Miralax) 17 gram/dose powder Discontinued 17 g PO DAILY as needed for constipation 119 November 28, 2023 5:26pm December 16, 2024 9:28am sildenafil 100 mg oral tablet (17 sources) Phosphodiesterase 5 Inhibitor Start: 03-11-2022 End: 12-16-2024 Sildenafil 100 mg tablet Discontinued 1 {tbl} PO NEEDED as needed for Erectile Dysfunction March 11, 2022 12:00am December 16, 2024 9:28am Start: 11-02-2021 End: 05-16-2022 Sildenafil Active 1 TABLET P O NEEDED March 10, 2022 11:00pm Comment on above: 1 tablet 30 min prio r to intercourse, on empty stomach and with sexual stimulation immediately following. SITagliptin 100 mg oral tablet (20 sources) Dipeptidyl Peptidase 4 Inhibitor Start: End: take 1 tablet by mouth once daily Sitagliptin Phosphate 100 mg Tablet Discontinued 100 mg PO DAILY March 10, 2022 12:00am December 16, 2024 9:28am Comment on above: Take 1 tablet by regino th once daily. Problems Active Problems Problem Classification Problem Date Documented Date Episodic/Chronic Abdominal hernia (7 sources) Hernia of anterior abdominal wall; Translations: [Ventral hernia without obstruction or gangrene] Onset: 12-23-2024 10-17-2024 Episodic Comment on above: Patient is a 43-year -old male who makes post ER consultation related to a ventral hernia that he reports has been giving him pain for nearly 10 years (since a cholecystectomy in 2016). However, per patient's description and his subsequent exam it appears he has been informed he has a hernia when in actuality he exhibited evidence of diastases recti. In review of patient's numerous CT scans of his abdomen this is confirmed (I also shared the CT images with patient and his significant other to demonstrate my points). In fact, patient does have a small periumbilical hernia but this measures just 6 mm in greatest dimension. On exam patient does describe some mild tenderness with palpation. Yet this does seem to be different pain and the concerns with what she first presented. I discussed that this could be repaired on a elective basis if Mr. Posey so desired and described the postoperative activity restrictions that would be imposed to minimize the risk for recurrence. I further shared that I would recommend first investigating his cyclic vomiting episodes (as this could impact his recovery) as well as ensure optimal glucose control. Mr. Posey and his significant other confirmed understanding. Abdominal pain (20 sources) Abdominal pain; Translations: [Unspecified abdominal pain] Onset: 03-28-2023 Episodic Administrative/socia l admission (6 sources) Patient encounter status; Translations: [Dietary counseling and surveillance] Episodic Anxiety disorders (1 source) Anxiety 03-28-2014 Chronic Diabetes mellitus with complications (8 sources) Type 2 diabetes mellitus; Translations: [Type 2 diabetes mellitus with moderate nonproliferative diabetic retinopathy without macular edema, bilateral] Onset: 04-02-2024 Chronic Diabetes mellitus without complication (20 sources) Type 2 diabetes mellitus without complication; Translations: [Type 2 diabetes mellitus without complications] Onset: 11-13-2016 07-05-2021 Chronic Disorders of teeth and jaw (4 sources) Infection of tooth; Translations: [Periapical abscess without sinus] 11-02-2023 Episodic Essential hypertension (20 sources) Hypertensive disorder; Translations: [Essential (primary) hypertension] Onset: 04-22-2012 01-19-2014 Chronic Fluid and electrolyte disorders (8 sources) Hypokalemia; Translations: [Hypokalemia] 02-10-2021 Episodic Gastritis and duodenitis (5 sources) Acute gastritis; Translations: [Acute gastritis without bleeding] 07-14-2023 Episodic Headache; including migraine (1 source) Migraine 04-06-2019 Chronic Hypertension with complications and secondary hypertension (8 sources) Hypertensive urgency ; Translations: [Hypertensive urgency] 02-10-2021 Chronic Inflammatory conditions of male genital organs (16 sources) Balanitis; Translations: [Balanitis] Onset: 11-25-2016 Resolved: 06-20-2021 10-25-2016 Chronic Mood disorders (2 sources) Bipolar disorder; Translations: [Depressive disorder] 04-06-2019 Chronic Nausea and vomiting (20 sources) Nausea and vomiting; Translations: [Nausea with vomiting, unspecified] Onset: 12-23-2024 03-15-2016 Episodic Nonspecific chest pain (20 sources) Chest pain; Translations: [Chest pain, unspecified] 02-10-2021 Episodic Osteoarthritis (1 source) Arthritis 10-01-2015 Chronic Other acquired deformities (1 source) Scoliosis deformity of spine 10-01-2015 Chronic Other connective tissue disease (8 sources) Bursitis of olecranon of right elbow; Translations: [Olecranon bursitis, right elbow] 03-15-2017 Episodic Other connective tissue disease (2 sources) Mass of soft tissue; Translations: [Other specified soft tissue disorders] Episodic Other connective tissue disease (1 source) Pain of left lower leg; Translations: [Pain in left lower leg] 03-30-2024 Episodic Other connective tissue disease (1 source) Diastasis recti; Translations: [Separation of muscle (nontraumatic), other site] 10-11-2024 Episodic Other disorders of stomach and duodenum (20 sources) Gastroparesis syndrome; Translations: [Gastroparesis] Onset: 06-20-2021 06-20-2021 Episodic Other disorders of stomach and duodenum (1 source) Gastroparesis; Translations: [Gastroparesis] Onset: 02-10-2025 Episodic Other ear and sense organ disorders (1 source) Excessive cerumen in ear canal ; Translations: [Impacted cerumen, bilateral] Episodic Other ear and sense organ disorders (2 sources) Impacted cerumen of bilateral ears; Translations: [Impacted cerumen, bilateral] 05-23-2023 Episodic Other eye disorders (2 sources) Vitreous floaters of left eye; Translations: [Other vitreous opacities, left eye] 11-03-2024 Chronic Other injuries and conditions due to external causes (2 sources) Contusion; Translations: [Other injury of unspecified body region, initial encounter] Episodic Other liver diseases (4 sources) Steatosis of liver; Translations: [Fatty (change of) liver, not elsewhere classified] 12-16-2024 Chronic Other liver diseases (1 source) Fatty (change of) liver, not elsewhere classified; Translations: [Fatty (change of) liver, not elsewhere classified] Onset: 12-29-2024 Chronic Other male genital disorders (1 source) Pain in penis 06-12-2017 Chronic Other nutritional; endocrine; and metabolic disorders (20 sources) Morbid obesity; Translations: [Morbid (severe) obesity due to excess calories] Onset: 12-29-2014 12-29-2014 Chronic Other nutritional; endocrine; and metabolic disorders (10 sources) Obese class I; Translations: [Obesity, unspecified] Onset: 08-29-2023 08-29-2023 Chronic Other nutritional; endocrine; and metabolic disorders (5 sources) History of diabetes mellitus type 2; Translations: [Personal history of other endocrine, nutritional and metabolic disease] 05-27-2023 Episodic Other nutritional; endocrine; and metabolic disorders (4 sources) Weight decreased; Translations: [Abnormal weight loss] 12-16-2024 Episodic Other screening for suspected conditions (not mental disorders or infectious disease) (1 source) Other abnormal and inconclusive findings on diagnostic imaging of breast; Translations: [Other abnormal and inconclusive findings on diagnostic imaging of breast] Onset: 01-20-2025 Episodic Other upper respiratory infections (8 sources) Acute upper respiratory infection; Translations: [Acute upper respiratory infection, unspecified] 10-17-2015 Episodic Residual codes; unclassified (20 sources) Obstructive sleep apnea syndrome; Translations: [Obstructive sleep apnea (adult) (pediatric)] Onset: 01-16-2016 01-16-2016 Chronic Comment on above: on CPAP Residual codes; unclassified (1 source) Hallucinations 03-28-2014 Episodic Residual codes; unclassified (1 source) Other specified conditions influencing health status; Translations: [Problems related to health literacy] 04-02-2024 Episodic Schizophrenia and other psychotic disorders (20 sources) Paranoid schizophrenia; Translations: [Paranoid schizophrenia] 09-17-2021 Chronic Skin and subcutaneous tissue infections (2 sources) Cellulitis of lower leg; Translations: [Cellulitis of left lower limb] 03-30-2024 Episodic Spondylosis; intervertebral disc disorders; other back problems (20 sources) Prolapsed lumbar intervertebral disc; Translations: [Other intervertebral disc displacement, lumbar region] Onset: 05-25-2014 05-25-2014 Chronic Spondylosis; intervertebral disc disorders; other back problems (20 sources) Low back pain; Translations: [Lumbago] Onset: 05-18-2015 09-17-2021 Episodic Unclassified (2 sources) Call their office on Friday morning after 9 AM. They can get you scheduled for an appointment to have your hernia evaluated. Unclassified (1 source) Cyclical vomiting syndrome unrelated to migraine; Translations: [Cyclical vomiting syndrome unrelated to migraine] Onset: 12-23-2024 Past or Other Problems Problem Classification Problem Date Documented Da te Episodic/Chronic Biliary tract disease (8 sources) Gallstone; Translations: [Calculus of gallbladder without cholecystitis without obstruction] Onset: 08-15-2015 Resolved: 01-16-2016 09-17-2021 Episodic Conduction disorders (20 sources) Incomplete right bundle branch block; Translations: [Unspecified right bundle-branch block] Onset: 08-30-2015 Resolved: 06-10-2022 08-30-2015 Chronic Genitourinary symptoms and ill-defined conditions (20 sources) Lower urinary tract symptoms; Translations: [Unspecified symptoms and signs involving the genitourinary system] Onset: 11-25-2016 11-25-2016 Episodic Malaise and fatigue (20 sources) Physical deconditioning; Translations: [Other malaise] Onset: 08-09-2014 08-09-2014 Episodic Other aftercare (1 source) Encounter for therapeutic drug level monitoring; Translations: [Encounter for therapeutic drug monitoring] Onset: 04-02-2024 Episodic Other connective tissue disease (1 source) Pain in left lower leg; Translations: [Pain and swelling of left lower leg] Onset: 03-30-2024 Episodic Other connective tissue disease (1 source) Other specified soft tissue disorders; Translations: [Pain and swelling of left lower leg] Onset: 03-30-2024 Episodic Other gastrointestinal disorders (8 sources) Irritable bowel syndrome; Translations: [Irritable bowel syndrome without diarrhea] Onset: 01-19-2014 Resolved: 01-16-2016 01-16-2016 Chronic Other non-traumatic joint disorders (8 sources) Pain in left knee; Translations: [Pain in joint, lower leg] Onset: 07-20-2014 Resolved: 01-16-2016 09-17-2021 Episodic Residual codes; unclassified (8 sources) Early satiety; Translations: [Early satiety] Onset: 04-19-2021 Resolved: 04-19-2021 04-19-2021 Episodic Results Test Name Value Interpretation Reference Range Facility MR/PAT.DANIELITO 02-18-2025 MR/PAT.[facility] Medical Records Department [address] [place] [address] PAT - Anesthesia 02/18/25 1815 MR#: [id number] Acct: [id number] Name: ANASTACIO POSEY Rep #: [id number] : 1980 44 From: Piero Melendrez MD PCP: JEB Landeros [place] [facility] [place] Race: C Location: EN Pre-Assessment Diagnosis/Proposed Procedure Planned Operative Procedure(s): COLONOSCOPY/EGD Anesthesia History 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 When Was Last Pacemaker Check QUESTION #4 FULL TEXT: You/Your Family Experience fever (hyperthermia) with Anesthesia Last Oral Intake Last Oral intake: Last Oral Intake NPO since Meds taken in AM with sips of water? Meds patient instructed to take am of surgery PONV PONV - entertainment lawyer: PONV - entertainment lawyer Female No 02/18/25 16:02 HX of Motion Sickness No 02/18/25 16:02 HX of N/V After Surgery No 02/18/25 16:02 Non-Smoker Yes 02/18/25 16:02 Duration of Surgery greater No 02/18/25 16:02 than 60 minutes Number of Risk Factors 1 02/18/25 16:02 PONV Score Low Risk 02/18/25 16:02 Height Weight Height Weight: Anesthesia: Height Weight Height 6 ft 1 in 12/16/24 09:33 Respiratory Assessment Respiratory Assessment - entertainment lawyer: Respiratory Tract Infection Hx - entertainment lawyer Hx Respiratory Tract Infection No 02/18/25 16:02 STOP Sleep Apnea STOP Sleep Apnea - entertainment lawyer: STOP Sleep Apnea - entertainment lawyer Hx Hypertension Yes: CONTROLLED ON MED 02/18/25 16:02 Hx Sleep Apnea No 02/18/25 16:02 CPAP No 02/18/25 16:02 BIPAP No 02/18/25 16:02 Do you snore loudly (louder No 02/18/25 16:02 than talking or can be heard Do you often feel tired/ No 02/18/25 16:02 fatigued/ sleepy during daytime? Has anyone observed you stop No 02/18/25 16:02 breathing during sleep? STOP Results Negative 02/18/25 16:02 QUESTION #5 FULL TEXT : Do you snore loudly (louder than talking or can be heard through closed doors)? 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 Specify any problems Hx of Preganancy in last 3 N/A 02/18/25 16:02 Months Nurse Filling Out Transfusion VCHRISTIN 02/18/25 16:02 Questions: Date: 02/18/25 02/18/25 16:02 Time: 16:03 02/18/25 16:02 Patient unable to answer at this time (ie. confused, unrespo /Reproducti on History /Reproducti ve History - entertainment lawyer: /Reproducti ve Hx- entertainment lawyer Hx Now Gestational Age (in weeks): EDC: Hx Hx Para Hx Section [facility] Medical History (Updated 02/18/25 @ 16:02 by Milady Amado) Arthritis Migraine headache Non-smoker History of echocardiogram History of stress test History of CHF (congestive heart failure) Schizophrenia Diabetes Hypertension Home Medications ???Medication ???Instructions ???Recorded ???Last Taken ???Type metformin 500 mg tablet 1,000 tab PO BID 03/11/22 Unknown History glimepiride 4 mg tablet 4 mg PO QAM 12/08/24 Unknown Histo ry lisinopril 40 mg tablet 40 mg PO QDAY 12/08/24 Unknown His tory pioglitazone 15 mg tablet 15 mg PO QDAY 12/08/24 Unknown His tory amlodipine 5 mg tablet 10 mg PO DAILY 12/16/24 Unknown Hi story atenolol 50 mg tablet 50 mg PO QDAY 12/16/24 Unknown His tory linaclotide 72 mcg capsule 72 mcg PO QAM constipation #30 cap s 12/16/24 Unknown Rx (more content not included)... Normal [facility] Gastric Emptying Studyon Gastric Emptying Study [facility] Imaging Services [address] [place] [address] Gastric Emptying Study MR#: [id number] Acct: [id number] Name: ANASTACIO POSEY Rep #: [id number] : 1980 M 44 From: Christian arrieta MD PCP: JEB Landeros Status: REG CLI Study: Gastric Emptying Study Date of Exam: 02/04/25 Exam# [id number] Ordering Dr: Michael James MD PROCEDURE: GASTRIC EMPTYING STUDY 02/04/2025 REASON FOR EXAM: GASTROPARESIS COMPARISON: None TECHNIQUE: The patient ingested a standard meal of oatmeal and 10 mCi of sulfur colloid and water. There was no vomiting postprandially. Anterior and posterior planar images of the upper abdomen were obtained for 1 minute immediately following the meal at 1h, 2h and 4h if more than 10% of the activity persisted within the stomach. Regions of interest were drawn, and a geometric mean was used to calculate a [id number]-jaksu. RADIOPHARMACEUTICAL: Technetium sulfur colloid DOSE 1 mCimCi FINDINGS: Percent activity remaining in stomach: 1 hour 60 % (normal 37-90%) NM/Gastric Emptying Study IMPRESSION: Normal gastric emptying study. Reading Location: [id number] CC: JEB Christiansen; Dr. Michael James MD Post Production Assistant: Signed Normal [facility] Gastroenterology Visit Repor ton 01-19-2025 Gastroenterology Visit Report [facility] [address] [facility] [place] [address] OFFICE VISIT Date of Service: 01/19/25 MR#: [id number] Acct: [id number] Name: ANASTACIO POSEY Rep #: [id number] : 1980 Provider: Dr. Michael garcia MD Age/Sex: 44/M Location: [facility] Status: Signed Intake Vital Signs 12/16/24 09:33 01/19/25 13:40 Height 6 ft 1 in 6 ft 1 in Weight: 228 lb 8 oz 237 lb BMI 30.1 31.2 BP 122/86 H 165/120 H Blood Pressure Location Lt brachial Position Sitting Respiration 16 14 Pulse 85 Pulse Source Monitor Pulse Oximetry (%) 96 95 Oxygen Delivery Method room air room air Intake Visit Reasons: liver enlarged Academic Interventionist Required: No Accompanied by: Is patient in pain?: Yes (umbilical area) Pain scale (1-10): 7 Allergies No Known Allergies Allergy (Verified 01/19/25 13:35) Medications ???Medication ???Instructions ???Recorded ???Confirmed ???Type metformin 500 mg tablet 1,000 tab PO BID 03/11/22 01/19/25 History glimepiride 4 mg tablet 4 mg PO QAM 12/08/24 01/19/25 Hist ory lisinopril 40 mg tablet 40 mg PO QDAY 12/08/24 01/19/25 Hi story pioglitazone 15 mg tablet 15 mg PO QDAY 12/08/24 01/19/25 Hi story amlodipine 5 mg tablet 10 mg PO DAILY 12/16/24 01/19/25 H istory atenolol 50 mg tablet 50 mg PO QDAY 12/16/24 01/19/25 Hi story linaclotide 72 mcg capsule 72 mcg PO QAM constipation #30 cap s 12/16/24 01/19/25 Rx (Linzess) metoclopramide HCl 10 mg tablet 10 mg PO .BIDLX 01/19/25 01/19/25 History (Reglan) PFSH Medical History Schizophrenia Diabetes Hypertension Surgical History History of cholecystectomy Family History Brother CAD (coronary artery disease) Social History household members: spouse current occupational status: disabled Smoking Status: Former smoker alcohol intake: never substance use type: does not use HPI HPI Details: ANASTACIO POSEY, is a 44 M who presents to the office today for OV 12.16.24- abd pain and vomiting, CT scan of the abdomen and pelvis with IV contrast was completed 11/28/2023 and revealed moderate stool in the colon, pancreatic atrophy and hepatic steatosis US abd/ elastography 4.5.25- Liver measures 19cm, ???Stiffness 9.4 kPa OV 01.19.25 patient has history of severe gastroparesis as per last gastric studies test done in May 2021. He has been on metoclopramide 10 mg 4 times daily probably since then. Patient on walking looks more slow, sometimes loses balance. He also has a ventral hernia. Sometimes he complained mid abdominal pain below umbilical level. ROS Const Constitutional: Positive for weight change; No fatigue, fever(s), frequent falls, headache(s) or weakness ENT ENT: No headache(s) or difficulty swallowing Resp Respiratory: No shortness of breath or wheezing Cardio Cardiology: No leg pain with exertion Gastro GI: No abdominal pain, bloating, change in bowel habits, constipation, diarrhea, heartburn, difficulty swallowing, excessive flatus, Vomiting blood/hematemesis, Blood in stool, nausea/dyspepsia or vomiting Genitourinary Male: No difficulty urinating or burning urination Musc Musculoskeletal: Positive for joint pain, back pain and Arthritis; No joint swelling, muscle cramps, muscle weakness, numbness, stiffness, tingling, sciatica, restless legs, leg pain at night or leg pain with exertion Skin Skin: No dry skin, lesions, itchy eyes or rash Neuro Neurology: No behavioral changes, unsteady gait/balance, weakness, frequent falls, headache(s), numbness, tingling, restless legs, tremor(s), Increased tone in limbs, paralysis or seizures Psych Psychiatric: No anxiety, No behavioral changes, No depression, No paranoia, No Compulsive Behavior, No hyperactivity, No inattentiveness, No obsessions/compulsio ns, No Temper Tantrums and No suicidal ideation Endo Endocrine: Positive for weight change; No fatigue Aller/Imm Allergy/Immunologic: No itchy eyes or wheezing [place]/Lymp Hematologic/Lymphati c: No easy bleeding or easy bruising Exam Const General: cooperative, no acute distress and well developed Nutritional Appearance: average body habitus Orientation: alert, awake and oriented x3 [facility] Head: normocephalic and atraumatic Nose: external nose normal Face and sinus: normal facial exam Mouth: moist mucous membranes Eyes Pupils: PERRL EOM: EOM intact bilaterally Neck Neck: normal visual inspection, no meningeal signs and trachea midline Carotids: no bruits Chest Chest palpation inspection: normal inspection of the chest Resp Effort (more content not included)... Normal [facility] ABD Limited w/ Elastographyo n 12-25-2024 ABD Limited w/ Elastography [facility] Imaging Services [address] [place] [address] [place], [place] [address] ABD Limited w/ Elastography MR#: [id number] Acct: [id number] Name: ANASTACIO POSEY Rep #: [id number] : 1980 M 44 From: Frantz Cruz DO PCP: JEB Landeros Status: REG CLI Study: ABD Limited w/ Elastography Date of Exam: 02/13 Exam# [id number] Ordering Dr: Malini Mckeon PROCEDURE: ABD LIMITED W/ ELASTOGRAPHY 12/25/2024 REASON FOR EXAM: LIVER STEATOSIS TECHNIQUE: Real-time grayscale and Doppler ultrasound and Doppler velocity values were acquired per routine protocol. COMPARISON: None. FINDINGS: Liver is enlarged at 19 cm length. Liver is echogenic indicating steatosis. No intrahepatic or extrahepatic biliary ductal dilatation. Normal hepatopetal flow knee portal vein. Status post cholecystectomy. Limited pancreatic imaging is unremarkable. Right kidney size and cortical thickness are normal. Right kidney measured 11.6 cm L x 6.5 cm AP x 6.1 cm T Elastography measurements: Site a: 9.5 kPa. Site B 8.4 kPa. Site C: 10.2 kPa. Average kPa 9.4. US/ABD Limited w/ Elastography IMPRESSION: Metavir scores fall within the F2-F3 range Reading Location: [facility] CC: JEB Mckeon; JEB Christiansen Post Production Assistant: Signed Normal [facility] [id number] 12-21-2024 [facility] Misc. COMMENT Normal . [facility] Comment on above: Order Comment: [id number] 9ELF RED POUR OFF RF Result Comment: Test Ordered: [id number] Enhanced Liver Fibrosis (ELF) ELF(TM) Score 8.70 BN Reference Range: <9.80 ELF(TM) Score Interpretation: Risk cut-offs to assess the likelihood of progression to cirrhosis and liver-related clinical events within 3.9 years following baseline ELF score (IQR: 14.0-22.4 months)*: Lower risk < 9.80 Mid risk 9.80 - 11.29 Higher risk >11.29 Note: The ELF(TM) Score is a unitless numerical value. *Ubaldo SA, Ar VW, Roberta T, et al. Selonsertib for patients with bridging fibrosis or compensated cirrhosis due to MATOS: Results from randomized phase III STELLAR trials. J Hepatol. 2020 Mar;73(1):26-39. Performed at: [address] [id number] Welt Maker: Andria De La Torre MD, Phone: [phone] Performed at: [address] [id number] Welt Maker: Amaury Foote PhD, Phone: [phone] Performed By: #### L 3890.6202, L3100.0300, L3410.9998, L3890.6102, L3100.0460, L3890.6301 ####[facility] [id number] [facility] [place], [address] Hepatitis A AB, Totalon 11-21 HEPATITIS A,TOT Negative Normal Negative [facility] Comment on above: Result Comment: Comm ent: The HAV total antibody assay detects both IgG and IgM but does not differentiate between them. A negative result suggests susceptibility to infection. A positive result could be due to vaccination, previously resolved infection or active infection. Testing for HAV IgM should be performed if active HAV infection is suspected. [facility] offers profiles that will automatically reflex positive HAV total antibody results to IgM (e.g., panel #[id number] HAV Antibody w/ Rfx). Performed at: [address] [id number] Welt Maker: Amaury Foote PhD, Phone: [phone] Performed By: #### L 3890.6202, L3100.0300, L3410.9998, L3890.6102, L3100.0460, L3890.6301 #### [facility] Laboratory [address] [facility] [place], [address] Hepatitis B Core Ab Totalon 2024 HEP B CORE,TOT Negative Normal Negative [facility] Comment on above: Performed By: #### L 3890.6202, L3100.0300, L3410.9998, L3890.6102, L3100.0460, L3890.6301 #### [facility] Laboratory [address] [place], [address] Gastroenterology Visit Repor ton 12-16-2024 Gastroenterology Visit Report [facility] Gastroenterology [address] [place] [address] OFFICE VISIT Date of Service: 12/16/24 MR#: [id number] Acct: [id number] Name: ANASTACIO POSEY Rep #: [id number] : 1980 Provider: JEB hubbard Age/Sex: 43/M Location: [facility] Status: Signed Intake Vital Signs 12/08/24 14:44 12/16/24 09:33 Height 6 ft 1 in 6 ft 1 in Weight: 228 lb 228 lb 8 oz BMI 30.0 30.1 BP 140/93 H 122/86 H Blood Pressure Location Rt brachial Position Sitting Respiration 17 16 Pulse 99 Pulse Source Monitor Pulse Oximetry (%) 100 96 Oxygen Delivery Method room air room air Intake Visit Reasons: Cyclical vomiting syndrome Chief Complaint: e/d f/u hernia Academic Interventionist Required: No Accompanied by: Is patient in pain?: Yes Allergies No Known Allergies Allergy (Verified 12/08/24 14:45) Medications ???Medication ???Instructions ???Recorded ???Confirmed ???Type metformin 500 mg tablet 1,000 tab PO BID 03/11/22 12/16/24 History glimepiride 4 mg tablet 4 mg PO QAM 12/08/24 12/16/24 Hist ory lisinopril 40 mg tablet 40 mg PO QDAY 12/08/24 12/16/24 Hi story pioglitazone 15 mg tablet 15 mg PO QDAY 12/08/24 12/16/24 Hi story amlodipine 5 mg tablet 10 mg PO DAILY 12/16/24 12/16/24 H istory atenolol 50 mg tablet 50 mg PO QDAY 12/16/24 12/16/24 Hi story linaclotide 72 mcg capsule 72 mcg PO QAM constipation #30 cap s 12/16/24 12/16/24 Rx (Linzess) metoclopramide HCl 10 mg tablet 10 mg PO Q6H nausea and vomiting 0 3/27/25 History (Reglan) pantoprazole 40 mg tablet,delayed 40 mg PO QDAY #90 tabs 12/16/24 0 12/16/24 Rx release Nurse's Note: Pain in lower abdomen and umbilical. It is constant, 9 out of 10. The umbilical pain relate to hernia caused vomiting for a few weeks. PFSH Medical History Schizophrenia Diabetes Hypertension Surgical History History of cholecystectomy Family History Brother CAD (coronary artery disease) Social History household members: spouse current occupational status: disabled Smoking Status: Former smoker alcohol intake: never substance use type: does not use HPI HPI Chief Complaint: e/d f/u hernia Details: ANASTACIO POSEY, is a 43 M who presents to the office today for - seen in the office today with his GF He has a tiny umbilical hernia (6mm), reports this is a 9/10 abdominal pain which has been present ever since CCX. He reports the umbilical pain was so severe a couple weeks ago he was vomiting. - although when he points to location of pain he points to mid low pelvis as location of severe pain - he does endorse umbilical pain but states this is not as severe - having abdominal pain for a while, below umbilicus, sharp pain - report she can vomit for 2-3 weeks in a row - umbilical pain, every since CCX, sharp like someone punching me - no change in pain with PO intake, bowel movement or movement - vomiting is about 1 hour after eating and he does vomit food at times - denies any fevers - denies any early satiety - he is on Metoclopramide 10mg QID GES 2020 severe gastroparesis with >50% retained at 4h - per patient CCX - emesis of bile, brown, yellow, orange - states he could only keep water down - this last episode of emesis was 2 weeks ago - vomiting episodes last for a couple weeks or more, reports he cannot keep anything down during this time - he is losing weight - reports this is unintentional but he does nt mind the weight loss - he is uncertain if his current pain is the same pain he had prior to CCX - states he used to have a BM 2-3x a day - he has a BM 2-3x a week - stools can be soft or formed - denies any bleeding - Tylenol and Aleve for abdominal pain - these help some - dicyclomine 20mg QID PRN - tylenol and aleve work better for pain - he reports GES revealed 90% retained gastric contents in 2023 B: protein shake L: fast food - but trying to get away from this D: protein, vegetable - he is not taking nay fiber supplements - he is not on a probiotic - denies any smoking or EtOH use - denies any marijuana use ROS Const Constitutional: No fatigue, fever(s) or weight change ENT ENT: No difficulty swallowing Gastro GI: Positive for abdominal pain; No belching, bloating, change in bowel habits, change in stool character, coffee ground emesis, constipation, cramping, diarrhea, heartburn, difficulty swallowing, feeling full early, excessive flatus, incontinent of stools, Vomiting blood/hematemesis, Blood in stool, loose stools, Dinesh (more content not included)... Normal [facility] HBV core Ab Ql (S)Ordered By : Malini Mckeon on 12-16-2024 Hepatitis B Core Total Antibody Negative Negative [facility] HBV surface Ab Ql (S)Ordered By: Malini Mckeon on 12-16-2024 Hepatitis B Surface Antibody Non-Reactive [facility] Comment on above: <8.5 mIU/mL: Non-Abena ctive8.5<= x <11.5 mIU/mL: Indeterminate>=11.5 mIU/mL: Reactive Non Reactive: Inconsistent with immunity less than <10 mIU/mL Reactive: Consistent with immunity greater than or equal to 10 mIU/mL HBV surface Ag Ql (S)Ordered By: Malini Mckeon on 12-16-2024 Hepatitis B Surface Antigen Non-Reactive Nonreactive [facility] Comment on above: Reactive: Presumptiv e evidence of HBV. Repeatedly reactive samples must be confirmed using a neutralization test ([employer]ys HBsAg Confirmatory Test)Non-Reactive: HBsAg not detected; does not exclude the possibility of exposure to HBV Hepatitis A virus total anti body assayOrdered By: Malini Mckeon on 12-16-2024 Hepatitis A Antibody Total Negative Negative [facility] Comment on above: Comment: The HAV tot al antibody assay detects both IgG andIgM but does not differentiate between them. A negativeresult suggests susceptibility to infection. A positiveresult could be due to vaccination, previously resolvedinfection or active infection. Testing for HAV IgM shouldbe performed if active HAV infection is suspected. Labcorpoffers profiles that will automatically reflex positive HAVtotal antibody results to IgM (e.g., panel #[id number] HAVAntibody w/ Rfx).Performed at: [facility] Lab[address] [id number] Director: Amaury Foote PhD, Phone: [phone] Hepatitis C antibodyOrdered By: Malini Mckeon on 12-16-2024 Hepatitis C Antibody Non-Reactive Nonreactive [facility] Comment on above: Reactive: Presumptiv e evidence of antibodies to HCV. Follow CDC recommendations for supplemental testing.Non-Reactive: Antibodies to HCV were not detected; does not exclude the possibility of exposure to HCVReactive Results are presumptive evidence of antibodies to HCV. Follow CDC recommendations for supplemental testing.Order confirmation testing: HCV Quant by PCR testing - HCVPCR #[id number] Non Reactive: < 0.8 Equivocal: >/= 0.8 to < 1.0 Reactive: >/= 1.0The CDC requires that a reactive/equivocal HCV antibody result be sent out for confirmation. HCV Quant by PCR testing. L3890.6102on 12-16-2024 HEP B Surf Ag Non-Reactive Normal Nonreactive [facility] Comment on above: Result Comment: Reac tive: Presumptive evidence of HBV. Repeatedly reactive samples must be confirmed using a neutralization test ([employer]ys HBsAg Confirmatory Test) Non-Reactive: HBsAg not detected; does not exclude the possibility of exposure to HBV Performed By: #### L 3890.6202, L3100.0300, L3410.9998, L3890.6102, L3100.0460, L3890.6301 #### [facility] Laboratory [facility] [place], [address] L3890.6202on 12-16-2024 HEP B Surf Ab Non-Reactive Normal [facility] Comment on above: Result Comment: <8.5 mIU/mL: Non-Reactive 8.5<= x <11.5 mIU/mL: Indeterminate >=11.5 mIU/mL: Reactive Non Reactive: Inconsistent with immunity less than <10 mIU/mL Reactive: Consistent with immunity greater than or equal to 10 mIU/mL Performed By: #### L 3890.6202, L3100.0300, L3410.9998, L3890.6102, L3100.0460, L3890.6301 #### [facility] [address] [place], [address] L3890.6301on 12-16-2024 Hepatitis C Ab Non-Reactive Normal Nonreactive [facility] Comment on above: Result Comment: Reac tive: Presumptive evidence of antibodies to HCV. Follow CDC recommendations for supplemental testing. Non-Reactive: Antibodies to HCV were not detected; does not exclude the possibility of exposure to HCV Reactive Results are presumptive evidence of antibodies to HCV. Follow CDC recommendations for supplemental testing. Order confirmation testing: HCV Quant by PCR testing - HCVPCR #[id number] Non Reactive: < 0.8 Equivocal: >/= 0.8 to < 1.0 Reactive: >/= 1.0 The CDC requires that a reactive/equivocal HCV antibody result be sent out for confirmation. HCV Quant by PCR testing. Performed By: #### L 3890.6202, L3100.0300, L3410.9998, L3890.6102, L3100.0460, L3890.6301 #### [facility] [address] [place], [place], [id number] Surgery Visit Reporton 12-08 Surgery Visit Report [facility] [address] [place], [place] [address] OFFICE VISIT Date of Service: 12/08/24 MR#: [id number] Acct: [id number] Name: ANASTACIO POSEY Rep #: [id number] : 1980 Provider: Dr. Anastacio gutierrez MD Age/Sex: 43/M Location: [facility] Status: Signed Intake Vital Signs 10/09/24 16:02 12/08/24 14:44 Height 6 ft 1 in 6 ft 1 in Weight: 228 lb BMI 30.0 BP 140/93 H Blood Pressure Location Rt brachial Position Sitting Respiration 17 Pulse 99 Pulse Source Monitor Pulse Oximetry (%) 100 Oxygen Delivery Method room air Intake Visit Reasons: ED F/U- HERNIA-S/P Chief Complaint: e/d f/u hernia Is patient in pain?: Yes Allergies No Known Allergies Allergy (Verified 12/08/24 14:45) FOR[facility]LY [facility] Medical History Schizophrenia Diabetes Hypertension Surgical History History of cholecystectomy Family History Brother CAD (coronary artery disease) Social History household members: spouse current occupational status: disabled Smoking Status: Former smoker alcohol intake: never substance use type: does not use HPI HPI HPI: Patient is a 43-year-old male who presents for evaluation of a ventral hernia. He presents today with his significant other as follow-up of a recent ER visit to our facility on 10/09/2024. This finding was first noticed by patient as a sharp pain located above his bellybutton. However, he now adds that he has a pain below his bellybutton but above his belt line and has been puking for weeks. He states he went to the ER on multiple occasions with these complaints and was advised by emergency medicine that he had a hernia. Mr. Posey recalls first experiencing this pain shortly after he underwent laparoscopic cholecystectomy with Dr. Landaverde in 2016. He shares that he thus returned to Dr. Landaverde for evaluation of his abdominal pain but was informed that this area did not represent a hernia. Instead he was told that it was a common condition that happens to males (but patient was unable to specify further). He confirmed seen evidence of a bulge but was unable to state whether or not he is experienced any growth of this bulge as he is not look since ER visit. Patient is not able to recall how this occurred. Concerning his associated symptom of vomiting he shares that his most recent experience lasted 3 to 4 days and consisted of vomiting bilious content. He also reports that he found 2 spots of blood within this vomitus. Prior to this experience it had been about a year where he vomited for weeks. He notes that this vomiting typically occurs in the mornings. In addition to the above Mr. Posey reports that it occasionally hurts when it comes time to try to swallow water after this vomiting. Mr. Posey denies any recent dietary changes. He has been able to eat when this vomiting occurs and denies any associated weight loss. Mr. Posey denies any regular experience of either reflux or heartburn. Outside of the above Mr. Posey is diagnosed with both hypertension and diabetes. He shares that his blood pressures do go up and down but most of his pressures average 140/60. He confesses he is unable to recall his latest hemoglobin A1c and must obtain a glucometer from his primary care provider so he is unable to comment on his blood sugar control. Patient has no personal history of smoking. Patient denies any history of drug use including marijuana use. Pertinent surgical history includes: Laparoscopic cholecystectomy as discussed above ROS General General: No weight change, appetite, fatigue, colon cancer, breast cancer or weakness HEENT HEENT: Yes difficulty swallowing and eye surgery; No eye injury, swollen glands or hoarseness Endo Endocrine: Yes diabetes mellitus; No thyroid disease, thyroid cancer, Hair loss, heat intolerance or cold intolerance Skin Skin: No rash or changing moles Musc Musculoskeletal: Yes back problems and arthritis; No rheumatoid arthritis, gout or joint pain Cardio Cardiovascular: Yes high blood pressure; No murmur, pacemaker, heart disease, atrial fibrillation, heart attack, heart stent, palpitations, shortness of breath with exertion or chest pain Psych Psychiatric: No depression, anxiety or hearing voices Resp Respiratory: No shortness of breath, No sleep apnea, No cough, No COPD, No asthma, No emphysema and No wheezing Gastro Gastrointestinal: Yes abdominal pain, No nausea or vomiting, No diarrhea, No constipation, No blood in stool, No acid reflux, No hemorrhoids, No ulcers, No gallbladder problem and No dinesh (more content not included)... Normal [facility] CNOVon 11-03-2024 CNOV Office Visit (INTMWS) ANASTACIO POSEY ([id number]) 1980 M Date Time Provider Department 11/03/24 11:40 AM ROSEANN MORTON INTMWS During your visit today, we recorded the following information about you: Pulse Respiration Blood pressure Weight 88/minute 12/minute 146/100 111 kg Roseann Morton, [employer]GER.[employer] 11/03/2024 1:28 PM Signed CC: Patient presents with: Eye Problem: LT eye HPI Anastacio Posey is a 43 year old male who presents today for above. Patient states he developed floaters yesterday in his left eye that looked like blood splatter. The floater continuously moved across his visual field. He had no other symptoms and resolved by this morning. Denies eye pain, vision loss, double vision, eye injury, headache, flashes of light, eye drainage, itching, burning, or gritty feeling. He is diabetic, last eye exam in January 2022. He also reports muffled hearing in both ears. No pain, drainage, recent URI, history of seasonal/environment al allergies. Review of Systems See HPI PAST MEDICAL HISTORY Diagnosis Date Balanitis 11/25/2016 DDD (degenerative disc disease), lumbar 11/09/2014 Hypertension IBS (irritable bowel syndrome) 01/19/2014 Incomplete RBBB Incomplete RBBB Incomplete RBBB 08/30/2015 Lumbago 05/18/2015 chronic Lumbar disc herniation 05/25/2014 Obesity FLORIAN on CPAP 01/16/2016 Paranoid schizophrenia (HCC) with auditory hallucinations, [facility] Primary hypertension Snoring Uncontrolled type 2 diabetes mellitus without complication, without long-term current use of insulin 11/13/2016 PAST SURGICAL HISTORY Procedure Laterality Date ABDOMINAL SURGERY HX COLONOSCOPY FLX DX W/COLLJ SPEC WHEN PFRMD 02/25/2013 ESOPHAGOGASTRODUODEN OSCOPY TRANSORAL DIAGNOSTIC 04/19/2021 LAPAROSCOPY SURG CHOLECYSTECTOMY 09/11/2015 ALLERGIES Patient has no known allergies. MEDICATIONS metFORMIN (GLUCOPHAGE) 1,000 mg tablet Take 1 tablet by mouth two times a day with meals. Diabetes. DOSE CHANGE - TAKE ONE WITH BREAKFAST AND DINNER glimepiride (AMARYL) 4 mg tablet Take 1 tablet by mouth daily with breakfast. lisinopril (ZESTRIL) 40 mg tablet Take 1 tablet by mouth once daily. pioglitazone (ACTOS) 15 mg tablet Take 1 tablet by mouth once daily. metoclopramide HCl (REGLAN) 10 mg tablet Take 1 tablet by mouth four times daily. atenolol (TENORMIN) 50 mg tablet Take 1 tablet by mouth once daily. amLODIPine (NORVASC) 10 mg tablet Take 1 tablet by mouth once daily. dicyclomine (BENTYL) 20 mg tablet Take 1 tablet by mouth before meals and at bedtime. Blood Pressure Monitor Use as directed. blood [...] schizophrenia Heart Brother enlarged heart Obesity Brother No Known Problems Maternal Grandmother No Known Problems Maternal Grandfather No Known Problems Paternal Grandmother No Known Problems Paternal Grandfather Ischemic Heart Disease Maternal Uncle Social History Tobacco Use Smoking status: Former Current packs/day: 0.00 Average packs/day: 0.5 packs/day for 7.0 years (3.5 ttl pk-yrs) Types: Cigarettes Start date: 12/31/2006 Quit date: 12/31/2013 Years since quittin.8 Smokeless tobacco: Never Vaping Use Vaping status: Never Used Substance Use Topics Alcohol use: Not Currently Drug use: Never BP 146/100 Pulse 88 Resp 12 Wt 111 kg (244 lb 11.4 oz) SpO2 98% BMI 32.29 kg/m? Physical Exam Vitals reviewed. Constitutional: Appearance: Normal appearance. HENT: Right Ear: There is impacted cerumen. Left Ear: There is impacted cerumen. Eyes: General: Lids are normal. Right eye: No foreign body or discharge. Left eye: No foreign body or discharge. Extraocular Movements: Extraocular movements intact. Conjunctiva/sclera: Conjunctivae normal. Pupils: Pupils are equal, round, and reactive to light. Neurological: Mental Status: He is alert. ASSESSMENT/PLAN: 1. Vitreous floaters of left eye - ICD9: 379.24, ICD10: H43.392 (primary diagnosis) Etiology unclear. No alarm symptoms or exam findings. He is overdue for diabetic eye exam - CONSULT TO OPHTHALMOLOGY for further evaluation 2. Type 2 diabetes mellitus without complication, without long-term current use of insulin (HCC) - ICD9: 250.00, ICD10: E11.9 As above - CONSULT TO OPHTHALMOLOGY 3. Bilateral impacted ce (more content not included)... Normal [facility] CNOVon 10-11-2024 CNOV Office Visit (XAVI) ANASTACIO POSEY ([id number]) 1980 M Date Time Provider Department 10/11/24 2:00 PM DENYS LANDAVERDE During your visit today, we recorded the following information about you: Temperature Pulse Respiration Blood pressure 98.4 degrees 104/minute 14/minute 166/110 Weight Height 106.6 kg 1.854 m Jocelyn Bourne LPN 10/25/2024 12:30 PM Signed REVIEW OF SYSTEMS: General: The patient denies fatigue, denies weight loss, denies weight gain, denies feeling hot, and denies feelings of cold. Eyes: The patient denies glaucoma, denies eye injury/surgery, does not wear glasses or contacts. Ear/Nose/Throat: The patient denies allergies, denies hayfever, denies ear infections, and denies bloody noses. Cardiovascular: The patient denies chest pain, denies heart disease, denies high blood pressure,denies cardiac stent, denies prior heart attack, denies irregular heart beat, denies high cholesterol, denies poor circulation, denies heart failure, other cardiac issues, denies claudication, denies cold feet, denies peripheral arterial stent. Respiratory: The patient denies tuberculosis, denies pneumonia, denies frequent cough, denies pulmonary embolism, denies shortness of breath, and denies coughing up blood. Gastrointestinal: The patient denies difficulty swallowing, denies acid reflux, denies ulcers, denies vomiting, denies jaundice/hepatitis, denies gallbladder problems, denies black or tarry stools, denies hemorrhoids, denies bleeding from rectum, denies diverticulitis, denies constipation, denies diarrhea, denies loss of stool control, and denies hernias. Kidney/Bladder: The patient denies kidney stones, denies urine infections, and denies bloody urine. Skin: The patient denies a history of skin cancer, denies bleeding/changing moles, and denies a history of skin rash. Neurologic: The patient denies a history of epilepsy/convulsions , denies headaches, denies head/spinal injuries, and denies stroke/TIA. Psychiatric: The patient denies psychiatric medications, denies depression, and denies voices, denies substance abuse. Endocrine: The patient denies thyroid disorders, notes diabetes, and denies hormonal problems. Hematologic: The patient denies a history of bruising, denies bleeding, and denies anemia, denies blood clots. Infections: The patient denies a history of measles and mumps, denies rheumatic fever, and denies sexually transmitted diseases. Musculoskeletal: The patient denies back pain/injury, notes back problems, denies sciatica, denies knee/foot trouble, denies arthritis, or denies gout. When was patient's last Mammogram screening? N/A Last Colonoscopy: 02/25/2013 VANDANA Tian Daniel P, MD 10/25/2024 12:30 PM Signed HISTORY AND PHYSICAL Anastacio Posey 1980 REFERRING PHYSICIAN: No ref. provider found CHIEF COMPLAINT: Consult (Umbilical Hernia) HPI: The patient is a 43 year old male with a complaint of abdominal pain. Patient states that this pain is located from his umbilicus going up to his xiphoid area. Was seen at [facility]'s emergency department on 10/09/2024 he was told that he had a hernia at that time. Patient has a prior history of a laparoscopic cholecystectomy. He is also known to have diabetes and hypertension. He said over the last week he has had periumbilical abdominal discomfort he has had some nausea and vomiting that did not resolve his discomfort. He is not having any fevers. He is not having any diarrhea or melena. He has no previous history of trauma or recent trauma. PAST MEDICAL HISTORY Diagnosis Date Balanitis 11/25/2016 DDD (degenerative disc disease), lumbar 11/09/2014 Hypertension IBS (irritable bowel syndrome) 01/19/2014 Incomplete RBBB Incomplete RBBB Incomplete RBBB 08/30/2015 Lumbago 05/18/2015 chronic Lumbar disc herniation 05/25/2014 Obesity FLORIAN on CPAP 01/16/2016 Paranoid schizophrenia (HCC) with auditory hallucinations, [facility] Primary hypertension Snoring Uncontrolled type 2 diabetes mellitus without complication, without long-term current use of insulin 11/13/2016 PAST SURGICAL HISTORY Procedure Laterality Date ABDOMINAL SURGERY HX COLONOSCOPY FLX DX W/COLLJ SPEC WHEN PFRMD 02/25/2013 ESOPHAGOGASTRODUODEN OSCOPY TRANSORAL DIAGNOSTIC 04/19/2021 LAPAROSCOPY SURG CHOLECYSTECTOMY 09/11/2015 Current Outpatient Medications Medication Sig metFORMIN (GLUCOPHAGE) 1,000 mg tablet Take 1 tablet by mouth two times a day with meals. Diabetes. DOSE CHANGE - TAKE ONE WITH BREAKFAST AND DINNER glimepiride (AMARYL) 4 mg tablet Take 1 tablet by mouth daily with breakfast. lisinopril (ZESTRIL) 40 mg tablet Take 1 tablet by mouth once daily. pioglitazone (ACTOS) 15 mg tablet Take 1 tablet by mouth once daily. metoclopramide HCl (REGLAN) 10 mg tablet (more content not included)... Normal [facility] Emergency Department Summary on 10-09-2024 Emergency Department Summary [facility] Medical Records Department [address] [place] [address] Emergency Department Summary 10/09/24 MR#: [id number] Acct: [id number] Name: ANASTACIO POSEY Rep #: [id number] : 1980 43 From: Dale Coffey MD PCP: JEB Landeros Status:REG ER Location: ED HPI HPI - GI History of Present Illness Chief Complaint: Abd Pain Informant: patient and spouse/S.O. Abdominal Pain/Flank Pain Onset: Days Context: Gradual Onset Timing: Intermittent Quality: Aching Location: - (Periumbilical discomfort.) Current Severity: Gone Maximum Severity: Mild Nausea/Vomiting/Emes is GI Symptom: Positive for Nausea, Vomiting and - (Resolved several days ago.) Severity: Mild Diarrhea/Melena/[place] tochezia GI Symptom: Negative for Diarrhea, Melena or Hematochezia Associated Symptoms Associated Symptoms: Negative for Dysuria, Frequency, Hematuria or Urgency Narrative Narrative: 43-year-old male history of prior cholecystectomy. Diabetes and hypertension. Said abdominal pain is never had diagnosed for years. He said over the last week he has had periumbilical abdominal pain. He had some mild nausea and vomiting that resolved several days ago. He is urinating normally. He is having normal bowel movements. He is not having any diarrhea or melena. He has had no fever. No abdominal trauma. He was concerned he may have a hernia. Prior similar symptoms: Yes Recent Illness/Hospitalizat ion: No [facility] Medical History Schizophrenia Diabetes Hypertension Home Medications ???Medication ???Instructions ???Recorded ???Last Taken ???Type lisinopril 20 mg tablet 20 mg PO DAILY 30 days #30 tabs 02/02/21 Unknown Rx empagliflozin 25 mg tablet 25 mg PO DAILY 03/10/22 Unknown History sitagliptin phosphate 100 mg tablet 100 mg PO DAILY 03/10/22 Unknown History amlodipine 5 mg tablet 5 mg PO DAILY 03/11/22 Unknown History metformin 500 mg tablet 1,000 tab PO BID 03/11/22 Unknown History sildenafil 100 mg tablet 1 tab PO PRN PRN Erectile 03/11/22 Unknown History Dysfunction dicyclomine 10 mg capsule 20 mg (2 x 10 mg) PO Q6H PRN PRN 07/14/23 Unknown Rx abdominal pain #20 CAPSULES ondansetron 4 mg disintegrating 8 mg (2 x 4 mg) PO Q8H PRN PRN 07/14/23 Unknown Rx tablet Nausea #20 tabs naproxen 500 mg tablet (Naprosyn) 500 mg PO BID PRN pain #20 tabs 11/02/23 Unknown Rx penicillin V potassium 500 mg 500 mg PO 4X/DAY #40 tabs 11/02/23 Unknown Rx tablet metoclopramide HCl 10 mg tablet 10 mg PO Q6H PRN nausea and 11/28/23 Unknown Rx (Reglan) vomiting #20 tabs polyethylene glycol 3350 17 17 g PO DAILY PRN constipation 11/28/23 Unknown Rx gram/dose oral powder (Miralax) #119 grams ondansetron 4 mg disintegrating 4 mg PO Q6H PRN nausea and 10/09/24 Unknown Rx tablet vomiting #7 tabs Allergy/AdvReac Type Severity Reaction Status Date / Time No Known Allergies Allergy Verified 10/09/24 16:02 Family History Brother CAD (coronary artery disease) Surgical History History of cholecystectomy Social History household members: spouse current occupational status: disabled Smoking Status: Former smoker alcohol intake: never substance use type: does not use ROS ROS ED ROS Narrative Abdominal pain nausea and vomiting resolved. Constitutional Constitutional ED: Denies chills or fever(s) ENT ENT ED: Denies ear pain Cardiovascular Cardiovascular: Denies chest pain Respiratory/Chest Respiratory/Chest: Denies cough or dyspnea Gastrointestinal Gastrointestinal: Reports abdominal pain, nausea and vomiting; Denies constipation, diarrhea or melena Genitourinary Genitourinary ED: Denies dysuria or hematuria Musculoskeletal Musculoskeletal: Denies arthralgias Integumentary Denies abscess Neurologic Neurologic: Denies headache(s) Psychiatric Psychiatric: Denies anxiety or depression Endocrine Endocrinology: Denies polydipsia or polyphagia Hematologic/Lymphati c Hematologic/Lymphati c: Denies easy bleeding, easy bruising or lymphadenopathy Allergic/Immunologic Allergic/Immunologic ED: Denies mouth swelling, tongue swelling or urticaria EXAM Physical Exam Narrative Exam Narrative: Well-appearing 43-year-old male. Vital signs stable afebrile. He does not look septic toxic. He is in no distress. at bedside. H EENT exam unremarkable. Pupils round react light. Moist mucous membranes. Neck nontender. Lungs clear to auscultation bilateral. Heart regular rate and rhythm rate about 95 no murmur. Chest wall and ribs nontender. Abdomen soft, nondistended normal bowel sounds no peritoneal signs. When the patient li (more content not included)... Normal [facility] CBC W Auto Differential pane l (Bld)on 04-02-2024 Basophils (Bld) [#/Vol] 0.13 10*3/uL High <0.11 [facility] Comment on above: Order Comment: Speci men Type: BLOOD SPECIMENOrdering Facility: [facility] Address: [address] [place] [address] Performed By: #### 5 7021-8 ####[facility] LABCLIA [id number] [place] [address] [place] Basophils/100 WBC (Bld) 1.1 % Normal C [facility] Comment on above: Order Comment: Speci men Type: BLOOD SPECIMENOrdering Facility: [facility] Address: [address] [place] [address] Performed By: #### 5 7021-8 ####[facility] LABCLIA [id number] [place] [address] [place] Differential cell count method Nom (Bld) Auto Normal [facility] Comment on above: Order Comment: Speci men Type: BLOOD SPECIMENOrdering Facility: [facility] Address: [address] [place] [address] Performed By: #### 5 7021-8 ####[facility] LABCLIA [id number] [place] [address] [place] Eosinophils (Bld) [#/Vol] 0.65 10*3/uL High <0.46 [facility] Comment on above: Order Comment: Speci men Type: BLOOD SPECIMENOrdering Facility: [facility] Address: [address] [place] [address] Performed By: #### 5 7021-8 ####[facility] LABCLIA [id number] [facility] [place] [address] [place] Eosinophils/100 WBC (Bld) 5.5 % Normal [facility] Comment on above: Order Comment: Speci men Type: BLOOD SPECIMENOrdering Facility: [facility] Address: [address] [place] [address] Performed By: #### 5 7021-8 ####[facility] LABIA [id number] [place] [address] [place] Erythrocyte distribution width (RBC) [Ratio] 12.8 % Normal 11.5-15.0 [facility] Comment on above: Order Comment: Speci men Type: BLOOD SPECIMENOrdering Facility: [facility] Address: [address] [place] [address] Performed By: #### 5 7021-8 ####[facility] LABIA [id number] [place] [address] [place] Hematocrit (Bld) [Volume fraction] 49.3 % Normal 39.0-51.0 [facility] Comment on above: Order Comment: Speci men Type: BLOOD SPECIMENOrdering Facility: [facility] Address: [address] [place] [address] Performed By: #### 5 7021-8 ####[facility] LABIA [id number] [place] [address] [place] Hemoglobin (Bld) [Mass/Vol] 16.8 g/dL Normal 13.0-17.0 [facility] Comment on above: Order Comment: Speci men Type: BLOOD SPECIMENOrdering Facility: [facility] Address: [address] [place] [address] Performed By: #### 5 7021-8 ####[facility] LABCLIA [id number] [place] [address] [place] Immature granulocytes (Bld) [#/Vol] 0.04 10*3/uL Normal <0.10 [facility] Comment on above: Order Comment: Speci men Type: BLOOD SPECIMENOrdering Facility: [facility] Address: [address] [place] [address] Performed By: #### 5 7021-8 ####[facility] LABCLIA [id number] [place] [address] [place] Immature granulocytes/100 WBC (Bld) 0.3 % Normal [facility] Comment on above: Order Comment: Speci men Type: BLOOD SPECIMENOrdering Facility: [facility] Address: [address] [place] [address] Performed By: #### 5 7021-8 ####[facility] LABCLIA [id number] [place] [address] [place] Lymphocytes (Bld) [#/Vol] 3.09 10*3/uL Normal 1.00-4.00 [facility] Comment on above: Order Comment: Speci men Type: BLOOD SPECIMENOrdering Facility: [facility] Address: [address] [place] [address] Performed By: #### 5 7021-8 ####[facility] LABCLIA [id number] [place] [address] [place] Lymphocytes/100 WBC (Bld) 26.2 % Normal [facility] Comment on above: Order Comment: Speci men Type: BLOOD SPECIMENOrdering Facility: [facility] Address: [address] [place] [address] Performed By: #### 5 7021-8 ####[facility] LABCLIA [id number] [place] [address] [place] MCH (RBC) [Entitic mass] 30.6 pg Normal 26.0-34.0 [facility] Comment on above: Order Comment: Speci men Type: BLOOD SPECIMENOrdering Facility: [facility] Address: [address] [place] [address] Performed By: #### 5 7021-8 ####[facility] LABCLIA [id number] [place] [address] [place] MCHC (RBC) [Mass/Vol] 34.1 g/dL Normal 30.5-36.0 [facility] Comment on above: Order Comment: Speci men Type: BLOOD SPECIMENOrdering Facility: [facility] Address: [address] [place] [address] Performed By: #### 5 7021-8 ####[facility] LABCLIA [id number] [place] [address] [place] MCV (RBC) [Entitic vol] 89.8 fL Normal 80.0-100.0 [facility] Comment on above: Order Comment: Speci men Type: BLOOD SPECIMENOrdering Facility: [facility] Address: [address] [place] [address] Performed By: #### 5 7021-8 ####[facility] LABCLIA [id number] [place] [address] [place] Monocytes (Bld) [#/Vol] 1.34 10*3/uL High <0.87 [facility] Comment on above: Order Comment: Speci men Type: BLOOD SPECIMENOrdering Facility: [facility] Address: [address] [place] [address] Performed By: #### 5 7021-8 ####[facility] LABCLIA [id number] [place] [address] [place] Monocytes/100 WBC (Bld) 11.3 % Normal C [facility] Comment on above: Order Comment: Speci men Type: BLOOD SPECIMENOrdering Facility: [facility] Address: [address] [place] [address] Performed By: #### 5 7021-8 ####[facility] LABCLIA [id number] [place] [address] [place] Neutrophils (Bld) [#/Vol] 6.56 10*3/uL Normal 1.45-7.50 [facility] Comment on above: Order Comment: Speci men Type: BLOOD SPECIMENOrdering Facility: [facility] Address: [address] [place] [address] Performed By: #### 5 7021-8 ####[facility] LABCLIA [id number] [place] [address] [place] Neutrophils/100 WBC (Bld) 55.6 % Normal [facility] Comment on above: Order Comment: Speci men Type: BLOOD SPECIMENOrdering Facility: [facility] Address: [address] [place] [address] Performed By: #### 5 7021-8 ####[facility] LABCLIA [id number] [place] [address] [place] Nucleated RBC (Bld) [#/Vol] 10*3/uL Normal <0.01 [facility] Comment on above: Order Comment: Speci men Type: BLOOD SPECIMENOrdering Facility: [facility] Address: [address] [place] [address] Performed By: #### 5 7021-8 ####[facility] LABIA [id number] [place] [address] [place] Nucleated RBC/100 WBC (Bld) [Ratio] 0.0 /100 WBC Normal [facility] Comment on above: Order Comment: Speci men Type: BLOOD SPECIMENOrdering Facility: [facility] Address: [address] [place] [address] Performed By: #### 5 7021-8 ####[facility] LABIA [id number] [place] [address] [place] Platelet mean volume (Bld) [Entitic vol] 11.8 fL Normal 9.0-12.7 [facility] Comment on above: Order Comment: Speci men Type: BLOOD SPECIMENOrdering Facility: [facility] Address: [address] [place] [address] Performed By: #### 5 7021-8 ####[facility] LABIA [id number] [place] [address] [place] Platelets (Bld) [#/Vol] 316 10*3/uL Normal 150-400 [facility] Comment on above: Order Comment: Speci men Type: BLOOD SPECIMENOrdering Facility: [facility] Address: [address] [place] [address] Performed By: #### 5 7021-8 ####[facility] LABCLIA [id number] [place] [address] [place] RBC (Bld) [#/Vol] 5.49 10*6/uL Normal 4.20-6.00 [facility] Comment on above: Order Comment: Speci men Type: BLOOD SPECIMENOrdering Facility: [facility] Address: [address] [place] [address] Performed By: #### 5 7021-8 ####[facility] LABCLIA [id number] [place] [address] [place] WBC (Bld) [#/Vol] 11.81 10*3/uL High 3.70-11.00 [facility] Comment on above: Order Comment: Speci men Type: BLOOD SPECIMENOrdering Facility: [facility] Address: [address] [place] [address] Performed By: #### 5 7021-8 ####[facility] LABCLIA [id number] [place] [address] [place] CNOVon 04-02-2024 CNOV Office Visit (INTMWS) ANASTACIO POSEY ([id number]) 1980 M Date Time Provider Department 04/02/24 8:20 AM EVELYNE CHRISTIANSEN INTMWS During your visit today, we recorded the following information about you: Pulse Respiration Blood pressure Weight 68/minute 14/minute 160/100 113.4 kg Height 1.829 m Evelyne Christiansen APRN.[employer] 04/02/2024 9:24 AM Signed SUBJECTIVE Anastacio Posey is a 43 year old male here today for a check up on his medical problems. Chief Complaint Patient presents with: Edema: left lower leg/ankle x 1 week warm feeling and painful when walks on it HPI Anastacio Posey is a 43 year old male. He is an established patient of Preston Novoa MD. Here today for a follow up from , seen in on 03/30 and diagnosed with cellulitis in the left leg, started on Keflex, ultrasound negative for DVT. Still with some swelling, tenderness and redness to the area on the left lower leg. Today he states it is staying the same, not worse but not better. Has only had a few days of the Keflex. Also has HTN and DM. Not checking blood pressure or blood sugars. His medications were reviewed today and his list is now up to date. Medications Current Outpatient Medications Medication Sig cephALEXin (KEFLEX) 500 mg capsule Take 1 capsule by mouth four times daily for 5 days. metFORMIN (GLUCOPHAGE) 1,000 mg tablet Take 1 tablet by mouth two times a day with meals. Diabetes. DOSE CHANGE - TAKE ONE WITH BREAKFAST AND DINNER glimepiride (AMARYL) 4 mg tablet Take 1 tablet by mouth daily with breakfast. lisinopril (ZESTRIL) 40 mg tablet Take 1 tablet by mouth once daily. pioglitazone (ACTOS) 15 mg tablet Take 1 tablet by mouth once daily. metoclopramide HCl (REGLAN) 10 mg tablet Take 1 tablet by mouth four times daily. atenolol (TENORMIN) 50 mg tablet Take 1 tablet by mouth once daily. amLODIPine (NORVASC) 10 mg tablet Take 1 tablet by mouth once daily. dicyclomine (BENTYL) 20 mg tablet Take 1 tablet by mouth before meals and at bedtime. Blood Pressure Monitor Use as directed. blood sugar diagnostic (BLOOD GLUCOSE TEST) test strip Test blood sugar(s) 1x daily. Dx: Type 2 DM. Insulin: No Lancets lancets Test blood sugar(s) 1x times daily. Dx: Type 2 DM - Uncontrolled E11.65 Insulin: No No current facility-administere d medications for this visit. 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Hcc) (A priority) Comment: with auditory hallucinations, [facility] Lumbago - 05/18/2015 (D priority) Comment: chronic Obesity, [...] Types: Cigarettes Quit date: 12/31/2013 Years since quittin.2 Smokeless tobacco: Never Substance Use Topics Alcohol use: No Drug use: No Review of Systems Constitutional: Negative. Respiratory: Negative. Cardiovascular: Positive for leg swelling. Negative for chest pain and palpitations. OBJECTIVE BP 160/100 Pulse 68 Resp 14 Ht 6' 0 (1.83m) Wt 250 lb (113.4kg) SpO2 99% BMI 33.90 kg/(m2). Physical Exam Vitals and [...] Capillary refill takes less than 2 seconds. Comments: Light erythema to the anterior lower leg medially. Slight edema, slight tenderness. Neurological: General: No focal deficit present. Mental Status: He is alert and oriented to person, place, and time. Mental status is at baseline. (more content not included)... Normal [facility] Comprehensive metabolic 2000 panelon 04-02-2024 Albumin [Mass/Vol] 4.1 g/dL Normal 3.9-4.9 [facility] Comment on above: Order Comment: Speci men Type: BLOOD SPECIMENOrdering Facility: [facility] Address: [address] [place] [address] Performed By: #### L IPNF, 59951-9 ####[facility] LABCLIA [id number] [place] [address] [place] ALP [Catalytic activity/Vol] 84 U/L Normal 38-113 [facility] Comment on above: Order Comment: Speci men Type: BLOOD SPECIMENOrdering Facility: [facility] Address: [address] [place] [address] Performed By: #### L IPNF, 19979-1 ####[facility] LABCLIA [id number] [place] [address] [place] ALT [Catalytic activity/Vol] 17 U/L Normal 10-54 [facility] Comment on above: Order Comment: Speci men Type: BLOOD SPECIMENOrdering Facility: [facility] Address: [address] [place] [address] Performed By: #### L IPNF, ####[facility] LABCLIA [id number] [place] [address] [place] Anion gap [Moles/Vol] 11 mmol/L Normal 8-15 [facility] Comment on above: Order Comment: Speci men Type: BLOOD SPECIMENOrdering Facility: [facility] Address: [address] [place] [address] Performed By: #### L IPNF, ####[facility] LABCLIA [id number] [place] [id number] [place] AST [Catalytic activity/Vol] 17 U/L Normal 14-40 [facility] Comment on above: Order Comment: Speci men Type: BLOOD SPECIMENOrdering Facility: [facility] Address: [address] [place] [address] Performed By: #### L IPNF, ####[facility] LABCLIA [id number] [place] [address] [place] Bilirubin [Mass/Vol] 0.4 mg/dL Normal 0.2-1.3 [facility] Comment on above: Order Comment: Speci men Type: BLOOD SPECIMENOrdering Facility: [facility] Address: [address] [place] [address] Performed By: #### L IPNF, 18989-8 ####[facility] LABCLIA [id number] [place] [address] [place] Calcium [Mass/Vol] 9.5 mg/dL Normal 8.5-10.2 [facility] Comment on above: Order Comment: Speci men Type: BLOOD SPECIMENOrdering Facility: [facility] Address: [address] [place] [address] Performed By: #### L IPNF, ####[facility] LABCLIA [id number] [place] [address] [place] Chloride [Moles/Vol] 100 mmol/L Normal 98-107 [facility] Comment on above: Order Comment: Speci men Type: BLOOD SPECIMENOrdering Facility: [facility] Address: [address] [place] [address] Performed By: #### L IPNF, 88989-3 ####[facility] LABCLIA [id number] [place] [address] [place] CO2 [Moles/Vol] 24 mmol/L Normal 22-30 [facility] Comment on above: Order Comment: Speci men Type: BLOOD SPECIMENOrdering Facility: [facility] Address: [address] [place] [address] Performed By: #### L IPNF, 20827-2 ####[facility] LABCLIA [id number] [place] [address] [place] Creatinine [Mass/Vol] 0.68 mg/dL Low 0.73-1.22 [facility] Comment on above: Order Comment: Speci men Type: BLOOD SPECIMENOrdering Facility: [facility] Address: [address] [place] [address] Performed By: #### L IPNF, 99797-7 ####[facility] LABCLIA [id number] [place] [address] [place] Creatinine and Glomerular filtration rate.predicted panel (S/P/Bld) 119 mL/min/1.73m??? Normal >=60 [facility] Comment on above: Order Comment: Speci men Type: BLOOD SPECIMENOrdering Facility: [facility] Address: [address] [place] [address] Result Comment: Beatriz mated Glomerular Filtration Rate (eGFR) is calculated using the 2020 CKD-EPI creatinine equation. This equation utilizes serum creatinine, sex, and age as parameters. The creatinine assay has traceable calibration to isotope dilution-mass spectrometry. Refer to KDIGO guidelines for clinical interpretation. In patients with unstable renal function, e.g. those with acute kidney injury, the eGFR may not accurately reflect actual GFR. Performed By: #### L IPNF, 15527-6 ####[facility] LABCLIA [id number] [place] [address] [place] Glucose [Mass/Vol] 363 mg/dL High 74-99 [facility] Comment on above: Order Comment: Speci men Type: BLOOD SPECIMENOrdering Facility: [facility] Address: [address] [place] [address] Result Comment: The [place] Diabetes Association (ADA) provides guidance for cutoff values for fasting glucose and random glucose. The ADA defines fasting as no caloric intake for at least 8 hours. Fasting plasma glucose results between 100 to 125 mg/dL indicate increased risk for diabetes (prediabetes). Fasting plasma glucose results greater than or equal to 126 mg/dL meet the criteria for diagnosis of diabetes. In the absence of unequivocal hyperglycemia, results should be confirmed by repeat testing. In a patient with classic symptoms of hyperglycemia or hyperglycemic crisis, random plasma glucose results greater than or equal to 200 mg/dL meet the criteria for diagnosis of diabetes. Reference: Standards of Medical Care in Diabetes 2016, [place] Diabetes Association. Diabetes Care. 2016.39(Suppl 1). Performed By: #### L IPNF, 42309-0 ####[facility] LABCLIA [id number] [place] [address] [place] Potassium [Moles/Vol] 3.8 mmol/L Normal 3.7-5.1 [facility] Comment on above: Order Comment: Speci men Type: BLOOD SPECIMENOrdering Facility: [facility] Address: [address] [place] [address] Performed By: #### L IPNF, 42505-1 ####[facility] LABIA [id number] [place] [address] [place] Protein [Mass/Vol] 7.2 g/dL Normal 6.3-8.0 [facility] Comment on above: Order Comment: Speci men Type: BLOOD SPECIMENOrdering Facility: [facility] Address: [address] [place] [address] Performed By: #### L IPNF, ####[facility] LABCLIA [id number] [place] [address] [place] Sodium [Moles/Vol] 135 mmol/L Low 136-144 [facility] Comment on above: Order Comment: Speci men Type: BLOOD SPECIMENOrdering Facility: [facility] Address: [address] [place] [address] Performed By: #### L IPNF, 41429-7 ####[facility] LABCLIA [id number] [place] [address] [place] Urea nitrogen [Mass/Vol] 14 mg/dL Normal 9-24 [facility] Comment on above: Order Comment: Chance mohr Type: BLOOD SPECIMENOrdering Facility: [facility] Address: [address] [place] [address] Performed By: #### L IPNF, 31143-5 ####[facility] LABIA [id number] [place] [address] [place] HbA1c (Bld)on 04-02-2024 Average glucose Estimated from glycated hemoglobin (Bld) [Mass/Vol] 246 mg/dL Normal [facility] Comment on above: Order Comment: Chance mohr Type: BLOOD SPECIMENOrdering Facility: [facility] Address: [address] [place] [address] Result Comment: eAG: (Estimated average glucose) is a calculated value from HgbA1c and is risk control field representative of the average blood glucose level in the last 2-3 month period. Performed By: #### 5 5454-3 ####[facility] LABIA [id number] [place] [address] [place] HbA1c (Bld) [Mass fraction] 10.2 % High 4.3-5.6 [facility] Comment on above: Order Comment: Chance mohr Type: BLOOD SPECIMENOrdering Facility: [facility] Address: [address] [place] [address] Result Comment: [place] Diabetes Association guidelines indicate that patients with HgbA1c in the range 5.7-6.4% are at increased risk for development of diabetes, and intervention by lifestyle modification may be beneficial. HgbA1c greater or equal to 6.5% is considered diagnostic of diabetes. Performed By: #### 5 5454-3 ####[facility] LABIA [id number] [place] [address] [place] LIPID PANEL, NONFASTINGon Cholesterol [Mass/Vol] 150 mg/dL Normal <200 [facility] Comment on above: Order Comment: Speci men Type: BLOOD SPECIMENOrdering Facility: [facility] Address: [address] [place] [address] Result Comment: <200 mg/dL, Desirable 200-239 mg/dL, Borderline high >239 mg/dL, High Performed By: #### L IPNF, 30492-3 ####[facility] LABCLIA [id number] [place] [address] [place] HDL CHOLESTEROL, NF 48 mg/dL Normal >39 [facility] Comment on above: Order Comment: Michaeli men Type: BLOOD SPECIMENOrdering Facility: [facility] Address: [address] [place] [address] Result Comment: 40-5 9 mg/dL, Acceptable >59 mg/dL, High: Negative risk factor for coronary heart disease <40 mg/dL, Low: Positive risk factor for coronary heart disease Performed By: #### L IPNF, 73986-0 ####[facility] LABCLIA [id number] [place] [address] [place] LDL CHOLESTEROL, NF 77 mg/dL Normal <100 [facility] Comment on above: Order Comment: Michaeli men Type: BLOOD SPECIMENOrdering Facility: [facility] Address: [address] [place] [address] Result Comment: <100 mg/dL, Optimal 100-129 mg/dL, Near optimal/above optimal 130-159 mg/dL, Borderline high 160-189 mg/dL, High >189 mg/dL, Very high Secondary prevention optimal LDL Cholesterol levels are recommended to be < 70 mg/dL Performed By: #### L IPNF, 56304-6 ####[facility] LABCLIA [id number] [place] [address] [place] LDL/HDL RATIO, NF 1.60 mg/dL Normal <2.54 [facility] Comment on above: Order Comment: Speci men Type: BLOOD SPECIMENOrdering Facility: [facility] Address: [address] [place] [address] Result Comment: Solitario stewart: 1. National Cholesterol Education Program ATP III Guideline At-A-Glance Quick Desk Reference: National Heart, Lung, and Blood [place]. National Institutes of Health. 2001: NIH Publication No. 01-3305. 2. An International Atherosclerosis Society position paper: global recommendations for the management of dyslipidemia: executive summary, Atherosclerosis. 2014: 232(2):410-413. Performed By: #### L CYNDIE, 75933-6 ####[facility] LABCLIA [id number] [place] [address] [place] NON HDL CHOL, NF 102 mg/dL Normal <130 [facility] Comment on above: Order Comment: Michaeli men Type: BLOOD SPECIMENOrdering Facility: [facility] Address: [address] [place] [address] Result Comment: <130 mg/dL, Optimal 130-159 mg/dL, Near optimal/above optimal 160-189 mg/dL, Borderline high 190-219 mg/dL, High >219 mg/dL, Very high Secondary prevention optimal non HDL Cholesterol levels are recommended to be <100 mg/dL Performed By: #### L CYNDIE, 49136-0 ####[facility] LABCLIA [id number] [place] [address] [place] T CHOL/HDL RATIO NF 3.13 mg/dL Normal <5.10 [facility] Comment on above: Order Comment: Speci men Type: BLOOD SPECIMENOrdering Facility: [facility] Address: [address] [place] [address] Performed By: #### L IPGASTON, 47197-5 ####[facility] LABCLIA [id number] [place] [address] [place] TRIGLYCERIDES, NF 124 mg/dL Normal <150 [facility] Comment on above: Order Comment: Michaeli men Type: BLOOD SPECIMENOrdering Facility: [facility] Address: [address] [place] [address] Result Comment: <150 mg/dL, Normal 150-199 mg/dL, Borderline high 200-499 mg/dL, High >499 mg/dL, Very high Performed By: #### L IPNF, 86424-7 ####[facility] LABCLIA [id number] [address] [place] VLDL CHOLESTEROL, NF 25 mg/dL Normal <30 [facility] Comment on above: Order Comment: Speci men Type: BLOOD SPECIMENOrdering Facility: [facility] Address: [address] [place] [address] Performed By: #### L IPNF, 35476-0 ####[facility] LABCLIA [id number] [address] OF [facility] CNOVon 03-30-2024 CNOV Office Visit (UCWSTR) ANASTACIO POSEY ([id number]) 1980 M Date Time Provider Department 03/30/24 10:00 AM [facility] During your visit today, we recorded the following information about you: Temperature Pulse Respiration Blood pressure 97.8 degrees 64/minute 16/minute 158/90 Weight 114.7 kg Carito Key APRN.CNP 03/30/2024 11:16 AM Signed This note was created using Cipioriter. Subjective Anastacio Valenzuelaols is a 43 year old male. 43 year old male with PMH HTN, FLORIAN, IBS, DM and DDD presents for left lower leg complaints. Acute onset 5 days ago Left lower extremity Woke up with diffuse +swelling and tenderness Denies trauma or injury Denies known insect bite Denies fever or chills Denies numbness or tingling Denies CP Denies SOB or dyspnea Of note, he was on vacation recently and states lengthy periods of sitting in car. Denies prior history of DVT/PE Denies tobacco usage The history is provided by the patient. No spanish interpreter was used. Musculoskeletal Problem This is a new problem. The current episode started in the past 7 days. The problem occurs constantly. The problem has been gradually worsening. Pertinent negatives include no abdominal pain, anorexia, arthralgias, change in bowel habit, chest pain, chills, congestion, coughing, diaphoresis, fatigue, fever, headaches, joint swelling, myalgias, nausea, neck pain, numbness, rash, sore throat, swollen glands, urinary symptoms, vertigo, visual change, vomiting or weakness. Exacerbated by: walking, touching and bearing weight. He has tried nothing for the symptoms. The treatment provided no relief. PAST MEDICAL HISTORY Diagnosis Date Balanitis 11/25/2016 DDD (degenerative disc disease), lumbar 11/09/2014 Hypertension IBS (irritable bowel syndrome) 01/19/2014 Incomplete RBBB Incomplete RBBB Incomplete RBBB 08/30/2015 Lumbago 05/18/2015 chronic Lumbar disc herniation 05/25/2014 Obesity FLORIAN on CPAP 01/16/2016 Paranoid schizophrenia (HCC) with auditory hallucinations, [facility] Snoring Uncontrolled type 2 diabetes mellitus without complication, without long-term current use of insulin 11/13/2016 PAST SURGICAL HISTORY Procedure Laterality Date ABDOMINAL SURGERY HX COLONOSCOPY FLX DX W/COLLJ SPEC WHEN PFRMD 02/25/2013 ESOPHAGOGASTRODUODEN OSCOPY TRANSORAL DIAGNOSTIC 04/19/2021 LAPAROSCOPY SURG CHOLECYSTECTOMY 09/11/2015 ALLERGIES Patient has no known allergies. MEDICATIONS empagliflozin (JARDIANCE) 25 mg tablet Take 1 tablet by mouth daily with breakfast. SITagliptin phosphate (JANUVIA) 100 mg tablet Take 1 tablet by mouth once daily. metoclopramide HCl (REGLAN) 10 mg tablet Take 1 tablet by mouth four times daily. atenolol (TENORMIN) 50 mg tablet Take 1 tablet by mouth once daily. glimepiride (AMARYL) 4 mg tablet Take 1 [...] by mouth before meals and at bedtime. Blood Pressure Monitor Use as directed. blood sugar diagnostic (BLOOD GLUCOSE TEST) test strip Test blood sugar(s) 1x daily. Dx: Type 2 DM. Insulin: No Lancets lancets Test blood sugar(s) 1x times daily. Dx: Type 2 DM - Uncontrolled E11.65 Insulin: No cephALEXin (KEFLEX) 500 mg capsule Take 1 capsule by mouth four times daily for 5 days. FAMILY HISTORY Problem Relation Age of Onset [...] Types: Cigarettes Quit date: 12/31/2013 Years since quittin.2 Smokeless tobacco: Never Substance Use Topics Alcohol use: No Drug use: No Review of Systems Constitutional: Negative for chills, diaphoresis, fatigue and fever. HENT: Negative for congestion and sore throat. Eyes: Negative for pain, discharge and itching. Respiratory: Negative for apnea, cough, choking and chest tightness. Cardiovascular: Negative for chest pain. Gastrointestinal: Negative for abdominal pain, anorexia, change in bowel habit, diarrhea, nausea and vomiting. Musculoskeletal: Negative for arthralgias, joint swelling, myalgias (more content not included)... [facility]TON[facility] Telephone (UCWSTR) ANASTACIO POSEY ([id number]) 1980 M Date Time Provider Department 03/30/24 CARITO KEY During your visit today, we recorded the following information about you: Carito Key APRN.HAMILTON 03/30/2024 11:11 AM Signed US negative Attempted to call patient Would like to inform of negative results We will then treat as a cellulitis, RX called in [facility] F/U with PCP Requested return call. If no return call by evening of 03/30/24 Please attempt to call again. Polly Tesfaye MA 03/31/2024 8:07 AM Signed Left message for pt to call back. SHERRIE Louise Alexandra, MA 04/01/2024 8:04 AM Signed Left VM instructing patient to return call to receive results. Patient has follow up appt with Evelyne Christiansen scheduled for 04/02 for leg swelling, and has viewed ultrasound results via Givey. Spoke with [facility] pharmacy, patient has picked up Keflex as of 03/30. SHERRIE Renteria Stephanie, RN 04/01/2024 1:22 PM Signed Patient notified of results and provider's instructions. Patient verbalizes understanding. Faith Wallis RN Allergies As of Date: 03/30/2024 (No Known Allergies) Date Reviewed: 03/30/2024 Reviewed by: Nhi Chaevz LPN - Fully Assessed Reason for Visit: Results [95] Prescriptions as of 04/01/2024 - cephALEXin (KEFLEX) 500 mg capsule Take 1 capsule by mouth four times daily for 5 days. - empagliflozin (JARDIANCE) 25 mg tablet Take 1 tablet by mouth daily with breakfast. - SITagliptin phosphate (JANUVIA) 100 mg tablet Take 1 tablet by mouth once daily. - metoclopramide HCl (REGLAN) 10 mg tablet Take 1 tablet by mouth four times daily. - atenolol (TENORMIN) 50 mg tablet Take 1 tablet by mouth once daily. - glimepiride (AMARYL) 4 mg tablet Take 1 tablet by mouth daily with breakfast. - amLODIPine (NORVASC) 10 mg tablet Take 1 tablet by mouth once daily. - lisinopril (ZESTRIL) 40 mg tablet Take 1 tablet by mouth once daily. - metFORMIN (GLUCOPHAGE) 1,000 mg tablet Take 1 tablet by mouth two times a day with meals. Diabetes. DOSE CHANGE - TAKE ONE WITH BREAKFAST AND DINNER - dicyclomine (BENTYL) 20 mg tablet Take 1 tablet by mouth before meals and at bedtime. - Blood Pressure Monitor Use as directed. - blood sugar diagnostic (BLOOD GLUCOSE TEST) test strip Test blood sugar(s) 1x daily. Dx: Type 2 DM. Insulin: No - Lancets lancets Test blood sugar(s) 1x times daily. Dx: Type 2 DM - Uncontrolled E11.65 Insulin: No Meds Comments as of 01/16/2016: Receives medication from [facility] by Dr. Roque. Problem List As Of Date 03/30/2024 Noted Resolved Paranoid schizophrenia (HCC) [F20.0] Hypertension [I10] 04/22/2012 IBS (irritable bowel syndrome) [K58.9] 01/19/2014 01/16/2016 Lumbar disc herniation [M51.26] 05/25/2014 Left knee pain [M25.562] 07/20/2014 01/16/2016 Physical deconditioning [R53.81] 08/09/2014 Well adult exam [Z00.00] 08/29/2014 05/17/2016 DDD (degenerative disc disease), lumbar [M51.36]11/09/2014 Morbid obesity (HCC) [E66.01] 12/29/2014 Lumbago [M54.50] 05/18/2015 Gall stones [K80.20] 08/15/2015 01/16/2016 Incomplete RBBB [I45.10] 08/30/2015 06/10/2022 FLORIAN on CPAP [G47.33] 01/16/2016 Type 2 diabetes mellitus without complication, *11/13/2016 Balanitis [N48.1] 11/25/2016 06/20/2021 Lower urinary tract symptoms (LUTS) [R39.9] 11/25/2016 Early satiety [R68.81] 04/19/2021 04/19/2021 Gastroparesis [K31.84] 06/20/2021 Obesity, Class I, BMI 30-34.9 [E66.9] 08/29/2023 Encounter Status:Closed by MIGUEL ANGEL MEHTA on 04/01/24 Normal [facility] US LEG VEIN DVT UNL VAS LABo n 03-30-2024 US LEG VEIN DVT UNL VAS LAB Non-Invasive Vascular Laboratory [facility] Lower Extremity Venous Duplex Unilateral - Left Date of service/time: 03/30/2024 10:36:10 AM Name: MR. ANASTACIO POSEY Date of : 1980 Age: 43 years Gender: M Clinical Indication Rule out deep vein thrombosis and lower extremity swelling. TECHNIQUE -------- A venous duplex ultrasound examination was performed, including grayscale imaging with compression maneuvers and color Doppler and spectral Doppler examination with augmentation maneuvers and response to respiration of the below mentioned veins. FINDINGS -------- RIGHT SIDE Common femoral vein Doppler: normal flow. LEFT SIDE Distal external iliac vein Doppler: normal flow. Compression: normal. Common femoral vein Doppler: normal flow. Compression: normal. Femoral vein Doppler: normal flow. Compression: normal. Popliteal vein Doppler: normal flow. Compression: normal. Posterior tibial veins Compression: normal. Peroneal veins Compression: normal. Great saphenous vein Compression: normal. Small saphenous vein Compression: normal. IMPRESSION RIGHT SIDE - DEEP VEINS Spontaneous and respirophasic flow noted in the common femoral vein. LEFT SIDE - DEEP VEINS Negative for acute deep vein thrombosis. Technologist: Cristina Suarez T Ordering physician: CARITO KEY Interpreting physician: LANCE Lozada DO [facility] Medical Image : [id number] [email or web address] See Link below for Image Normal [facility] [place] 02-05-2024 QUIANA Telephone (PHARMN) CHIDIANASTACIO ([id number]) 1980 M Date Time Provider Department 02/05/24 PHARMACIST PHARMN During your visit today, we recorded the following information about you: Merle Tamayo 02/05/2024 11:13 AM Signed Telephoned the patient to schedule a new Primary Care pharmacy appt. Left a message. Merle Tamayo 02/09/2024 8:58 AM Signed Telephoned the patient to schedule Primary Care pharmacy appt. Left a message and sending a [employer] message. When the patient returns the call, an appt will be schedule. Routing encounter to clinical pharmacist. Allergies As of Date: 02/05/2024 (No Known Allergies) Date Reviewed: 10/21/2023 Reviewed by: Evelyne Christiansen APRN.[employer] - Fully Assessed Reason for Visit: Appointment [186] Cmt: Primary Care Pharmacy Prescriptions as of 02/09/2024 - empagliflozin (JARDIANCE) 25 mg tablet Take 1 tablet by mouth daily with breakfast. - SITagliptin phosphate (JANUVIA) 100 mg tablet Take 1 tablet by mouth once daily. - metoclopramide HCl (REGLAN) 10 mg tablet Take 1 tablet by mouth four times daily. - atenolol (TENORMIN) 50 mg tablet Take 1 tablet by mouth once daily. - glimepiride (AMARYL) 4 mg tablet Take 1 tablet by mouth daily with breakfast. - amLODIPine (NORVASC) 10 mg tablet Take 1 tablet by mouth once daily. - lisinopril (ZESTRIL) 40 mg tablet Take 1 tablet by mouth once daily. - metFORMIN (GLUCOPHAGE) 1,000 mg tablet Take 1 tablet by mouth two times a day with meals. Diabetes. DOSE CHANGE - TAKE ONE WITH BREAKFAST AND DINNER - dicyclomine (BENTYL) 20 mg tablet Take 1 tablet by mouth before meals and at bedtime. - Blood Pressure Monitor Use as directed. - blood sugar diagnostic (BLOOD GLUCOSE TEST) test strip Test blood sugar(s) 1x daily. Dx: Type 2 DM. Insulin: No - Lancets lancets Test blood sugar(s) 1x times daily. Dx: Type 2 DM - Uncontrolled E11.65 Insulin: No Meds Comments as of 01/16/2016: Receives medication from [facility] by Dr. Roque. 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] 05/25/2014 Left knee pain [M25.562] 07/20/2014 01/16/2016 Physical deconditioning [R53.81] 08/09/2014 Well adult exam [Z00.00] 08/29/2014 05/17/2016 DDD (degenerative disc disease), lumbar [M51.36]11/09/2014 Morbid obesity (HCC) [E66.01] 12/29/2014 Lumbago [M54.50] 05/18/2015 Gall stones [K80.20] 08/15/2015 01/16/2016 Incomplete RBBB [I45.10] 08/30/2015 06/10/2022 FLORIAN on CPAP [G47.33] 01/16/2016 Type 2 diabetes mellitus without complication, *11/13/2016 Balanitis [N48.1] 11/25/2016 06/20/2021 Lower urinary tract symptoms (LUTS) [R39.9] 11/25/2016 Early satiety [R68.81] 04/19/2021 04/19/2021 Gastroparesis [K31.84] 06/20/2021 Obesity, Class I, BMI 30-34.9 [E66.9] 08/29/2023 Encounter Status:Closed by MERLE TAMAYO on 02/09/24 Normal [facility] Absolute lymphocyte countOrd ered By: ED PROVIDER on 11-28-2023 Lymphocytes Auto (Unsp spec) [#/Vol] 1.29 10*3/uL 0.83-4.51 [facility] Automated lymphocyte count a s percentage of total leukocytesOrdered By: ED PROVIDER on 11-28-2023 Lymphocytes/100 WBC Auto (Unsp spec) 8.9 % 19-41 [facility] Basophil percentageOrdered B y: Sandeep Mccray on 11-28-2023 Basophil percentage 0 SEEN /hpf 0-5 [facility] Basophil percentageOrdered B y: ED PROVIDER on 11-28-2023 Basophils/100 WBC (Bld) 0.5 % 0-1 [facility] Bilirubin [Mass/Vol] 0.90 mg/dL 0.20-1.00 [facility] Comment on above: For patients on eltr ombopag therapy, use of Dimension [place] TBIL is not recommended. Chloride [Moles/Vol] 95 mmol/L 98-107 [facility] Eosinophils/100 WBC (Bld) 0.0 % 0-5 [facility] Glucose [Mass/Vol] 359 mg/dL 74-106 [facility] Comment on above: Glucose result great er than or equal to 200 mg/dLsuggests DIABETES MELLITUS per A.D.A. criteria. Hemoglobin (Bld) [Mass/Vol] 17.5 g/dL 13.0-16.5 [facility] Monocytes/100 WBC (Bld) 3.7 % 0-10 [facility] Neutrophils (Bld) [#/Vol] 12.5 10*3/uL 2.0-7.7 [facility] Neutrophils/100 WBC (Bld) 86.4 % 47-70 [facility] Potassium [Moles/Vol] 3.8 mmol/L 3.5-5.1 [facility] Protein [Mass/Vol] 8.6 g/dL 6.4-8.2 [facility] Sodium [Moles/Vol] 135 mmol/L 136-145 [facility] WBC (Bld) [#/Vol] 14.5 10*3/uL 4.4-11.0 [facility] Bilirubin Test strip Ql (U)O rdered By: Sandeep Mccray on 11-28-2023 Bilirubin Ql (U) Negative Negative [facility] Determination of erythrocyte mean corpuscular volume (MCV)Ordered By: ED PROVIDER on 11-28-2023 MCV (RBC) [Entitic vol] 87.5 fL 80-94 [facility] Erythrocyte distribution wid th ratioOrdered By: ED PROVIDER on 11-28-2023 Erythrocyte distribution width (RBC) [Ratio] 13.1 % 11.6-14.6 [facility] Erythrocyte distribution wid th standard deviationOrdered By: ED PROVIDER on 11-28-2023 Erythrocyte distribution width (RBC) [Entitic vol] 41.5 fL 35.1-43.9 [facility] Hematocrit Auto (Bld) [Volum e fraction]Ordered By: ED PROVIDER on 11-28-2023 Hematocrit (Bld) [Volume fraction] 51.7 % 40-54 [facility] Immature granulocytes/100 WB C Auto (Bld)Ordered By: ED PROVIDER on 11-28-2023 Immature granulocytes/100 WBC (Bld) 0.500 % 0.0-0.9 [facility] Comment on above: IG% - Immature Granu locytes (promyelocytes, myelocytes and metamyelocytes) > 1% indicates that a LEFT SHIFT is Present. Ketones Test strip Ql (U)Ord ered By: Sandeep Mccray on 11-28-2023 Ketones Ql (U) 150 mg/dl Negative [facility] Comment on above: CRITICAL VALUE *HCRI TICAL VALUE VERIFIED. CALLED TO MALI NDIAYE (ER)11/28/23 1522 Lionel Solomon.RESULTS READ BACK BY SAME. Previous reported result: 150 mg/dlEdited by: GWENDOLYN on 11/28/23:1525 Laboratory - Chemistry and C hemistry - challengeOrdered By: ED PROVIDER on 11-28-2023 Albumin/Globulin [Mass ratio] 0.9 {ratio} 0.9-2.4 [facility] ALP [Catalytic activity/Vol] 84 U/L 45-117 [facility] ALT [Catalytic activity/Vol] 24 U/L 16-61 [facility] CO2 [Moles/Vol] 25.0 mmol/L 21.0-32.0 [facility] Globulin (S) [Mass/Vol] 4.5 g/dL 2.2-4.2 [facility] Urea nitrogen/Creatinine [Mass ratio] 21.4 mg/mg 10-20 [facility] Laboratory - Hematology and Cell countsOrdered By: ED PROVIDER on 11-28-2023 MCH (RBC) [Entitic mass] 29.6 pg 27.0-32.0 [facility] MCHC (RBC) [Mass/Vol] 33.8 g/dL 32-36 [facility] Nucleated RBC/100 WBC (Bld) [Ratio] 0 % 0-5 [facility] Platelet mean volume (Bld) [Entitic vol] 11.7 fL 6.2-12.0 [facility] Platelets (Bld) [#/Vol] 411 10*3/uL 150-450 [facility] Mucus LM Ql (Urine sed)Order ed By: Sandeep Mccray on 11-28-2023 Mucus Ql (Urine sed) 0 SEEN /hpf [facility] Nitrite Test strip Ql (U)Ord ered By: Sandeep Mccray on 11-28-2023 Nitrite Ql (U) Negative Negative [facility] No Panel InformationOrdered By: Sandeep Mccray on 11-28-2023 Urine RBC 0 SEEN /hpf 0-5 [facility] No Panel InformationOrdered By: ED PROVIDER on 11-28-2023 Estimated Creatinine Clearance Calc 141.50 ml/min [facility] Estimated GFR (MDRD) Amer 121 mL/min >60 [facility] Comment on above: GFR Calc Estimated GFR (MDRD) Non-Af Amer 100 mL/min >60 [facility] Comment on above: Non- GFR Calc Protein Test strip Ql (U)Ord ered By: Sandeep Mccray on 11-28-2023 Protein Ql (U) 30 mg/dl Negative [facility] RBC Auto (Bld) [#/Vol]Ordere d By: ED PROVIDER on 11-28-2023 RBC (Bld) [#/Vol] 5.91 10*6/uL 4.6-6.2 [facility] Serum or plasma calcium valente urement (mass/volume)Ordered By: ED PROVIDER on 11-28-2023 Calcium [Mass/Vol] 9.8 mg/dL 8.5-10.1 [facility] Serum or plasma creatinine m easurement (mass/volume)Ordered By: ED PROVIDER on 11-28-2023 Creatinine [Mass/Vol] 0.89 mg/dL 0.70-1.30 [facility] Comment on above: The validity of the calculated GFR & GFRAA in patients over 70 years has not been determined. Clinical correlation is essential. Serum or plasma urea nitroge n measurement (mass/volume)Ordered By: ED PROVIDER on 11-28-2023 Urea nitrogen [Mass/Vol] 19 mg/dL 7-18 [facility] Squamous epithelial cells de tection in urine sediment by light microscopyOrdered By: Sandeep Mccray on 11-28-2023 Epithelial cells.squamous LM Ql (Urine sed) 0 SEEN /hpf 0-5 [facility] Thin prep Papanicolaou smear with manual screeningOrdered By: ED PROVIDER on 11-28-2023 Thin prep Papanicolaou smear with manual screening 4.1 g/dL 3.2-5.0 [facility] Thin prep Papanicolaou smear with manual screening 15 U/L 15-37 [facility] Thin prep Papanicolaou smear with manual screening 15 5-15 [facility] Urine blood detectionOrdered By: Sandeep Mccray on 11-28-2023 RBC Ql (U) Negative Negative [facility] Urine clarityOrdered By: Дмитрий Mccray on 11-28-2023 Clarity (U) Clear Clear [facility] Urine color determinationOrd ered By: Sandeep Mccray on 11-28-2023 Color (U) Yellow Yellow [facility] Urine glucose detectionOrder ed By: Sandeep Mccray on 11-28-2023 Glucose Ql (U) 1000 mg/dl Normal [facility] Urine leukocyte esterase det ection by dipstickOrdered By: Sandeep Mccray on 11-28-2023 Leukocyte esterase Test strip Ql (U) Negative Negative [facility] Urine pHOrdered By: Sandeep yip on 11-28-2023 pH (U) 5.0 [pH] 5.0 - 8.0 [facility] Urine sediment bacteria coun t by microscopy (number/high power field)Ordered By: Sandeep Mccray on 11-28-2023 Bacteria LM.HPF (Urine sed) [#/Area] 0 /[HPF] None Seen [facility] Urine specific gravity measu rementOrdered By: Sandeep Mccray on 11-28-2023 Specific gravity (U) [Rel density] 1.025 1.002-1.030 [facility] Urine urobilinogen measureme ntOrdered By: Sandeep Mccray on 11-28-2023 Urobilinogen Ql (U) Normal mg/dl Normal [facility] Absolute lymphocyte countOrd ered By: Joey Encarnacion on 07-14-2023 Lymphocytes Auto (Unsp spec) [#/Vol] 1.61 10*3/uL 0.83-4.51 [facility] Basophil percentageOrdered B y: Joey Encarnacion on 07-14-2023 Basophils/100 WBC (Bld) 0.6 % 0-1 [facility] Bilirubin [Mass/Vol] 0.90 mg/dL 0.20-1.00 [facility] Comment on above: For patients on eltr ombopag therapy, use of Dimension [place] TBIL is not recommended. Chloride [Moles/Vol] 99 mmol/L 98-107 [facility] Eosinophils/100 WBC (Bld) 0.1 % 0-5 [facility] Glucose [Mass/Vol] 273 mg/dL 74-106 [facility] Comment on above: Glucose result great er than or equal to 200 mg/dLsuggests DIABETES MELLITUS per A.D.A. criteria. Neutrophils (Bld) [#/Vol] 9.5 10*3/uL 2.0-7.7 [facility] Neutrophils/100 WBC (Bld) 78.8 % 47-70 [facility] Potassium [Moles/Vol] 3.3 mmol/L 3.5-5.1 [facility] Protein [Mass/Vol] 7.9 g/dL 6.4-8.2 [facility] Sodium [Moles/Vol] 135 mmol/L 136-145 [facility] WBC (Bld) [#/Vol] 12.0 10*3/uL 4.4-11.0 [facility] Basophil percentage 5-10 SEEN /hpf 0-5 [facility] Bilirubin Test strip Ql (U)O rdered By: Joey Encarnacion on 07-14-2023 Bilirubin Ql (U) Negative Negative [facility] Blood erythrocytes count (nu mber/volume)Ordered By: Joey Encarnacion on 07-14-2023 RBC (Bld) [#/Vol] 5.84 10*6/uL 4.6-6.2 [facility] Blood hemoglobin measurement (mass/volume)Ordered By: Joey Encarnacion on 07-14-2023 Hemoglobin (Bld) [Mass/Vol] 17.5 g/dL 13.0-16.5 [facility] Blood lymphocytes/100 leukoc ytesOrdered By: Joey Encarnacion on 07-14-2023 Lymphocytes/100 WBC (Bld) 13.4 % 19-41 [facility] Blood monocytes/100 leukocyt esOrdered By: Joey Encarnacion on 07-14-2023 Monocytes/100 WBC (Bld) 6.8 % 0-10 [facility] Blood platelet mean volumeOr dered By: Joey Encarnacion on 07-14-2023 Platelet mean volume (Bld) [Entitic vol] 11.8 fL 6.2-12.0 [facility] Determination of erythrocyte mean corpuscular volume (MCV)Ordered By: Joey Encarnacion on 07-14-2023 MCV (RBC) [Entitic vol] 87.8 fL 80-94 [facility] Hematocrit Auto (Bld) [Volum e fraction]Ordered By: Joey Encarnacion on 07-14-2023 Hematocrit (Bld) [Volume fraction] 51.3 % 40-54 [facility] Ketones Test strip Ql (U)Ord ered By: Joey Encarnacion on 07-14-2023 Ketones Ql (U) 150 mg/dl Negative [facility] Comment on above: CRITICAL VALUE *H Laboratory - Chemistry and C hemistry - challengeOrdered By: Joey Encarnacion on 07-14-2023 ALP [Catalytic activity/Vol] 74 U/L 45-117 [facility] ALT [Catalytic activity/Vol] 25 U/L 16-61 [facility] CO2 [Moles/Vol] 24.0 mmol/L 21.0-32.0 [facility] Globulin (S) [Mass/Vol] 4.0 g/dL 2.2-4.2 [facility] Urea nitrogen/Creatinine [Mass ratio] 15.0 mg/mg 10-20 [facility] Laboratory - Hematology and Cell countsOrdered By: Joey Encarnacion on 07-14-2023 Erythrocyte distribution width (RBC) [Entitic vol] 40.8 fL 35.1-43.9 [facility] Erythrocyte distribution width (RBC) [Ratio] 12.7 % 11.6-14.6 [facility] Immature granulocytes/100 WBC (Bld) 0.300 % 0.0-0.9 [facility] Comment on above: IG% - Immature Granu locytes (promyelocytes, myelocytes and metamyelocytes) > 1% indicates that a LEFT SHIFT is Present. MCH (RBC) [Entitic mass] 30.0 pg 27.0-32.0 [facility] Nucleated RBC/100 WBC (Bld) [Ratio] 0 % 0-5 [facility] MCHC Auto (RBC) [Mass/Vol]Or dered By: Joey Encarnacion on 07-14-2023 MCHC (RBC) [Mass/Vol] 34.1 g/dL 32-36 [facility] Mucus LM Ql (Urine sed)Order ed By: Joey Encarnacion on 07-14-2023 Mucus Ql (Urine sed) 0 SEEN /hpf [facility] Nitrite Test strip Ql (U)Ord ered By: Joey Encarnacion on 07-14-2023 Nitrite Ql (U) Negative Negative [facility] No Panel InformationOrdered By: Joey Encarnacion on 07-14-2023 Estimated Creatinine Clearance Calc 159.25 ml/min [facility] Estimated GFR (MDRD) Amer 168 mL/min >60 [facility] Comment on above: GFR Calc Estimated GFR (MDRD) Non-Af Amer 139 mL/min >60 [facility] Comment on above: Non- GFR Calc Platelets bldOrdered By: Mike Encarnacion on 07-14-2023 Platelets (Bld) [#/Vol] 340 10*3/uL 150-450 [facility] Protein Test strip Ql (U)Ord ered By: Joey Encarnacion on 07-14-2023 Protein Ql (U) 100 mg/dl Negative [facility] Serum or plasma albumin valente urement (mass/volume)Ordered By: Joey Encarnacion on 07-14-2023 Albumin [Mass/Vol] 3.9 g/dL 3.2-5.0 [facility] Serum or plasma albumin/glob ulin mass ratioOrdered By: Joey Encarnacion on 07-14-2023 Albumin/Globulin [Mass ratio] 1.0 {ratio} 0.9-2.4 [facility] Serum or plasma calcium valente urement (mass/volume)Ordered By: Joey Encarnacion on 07-14-2023 Calcium [Mass/Vol] 9.4 mg/dL 8.5-10.1 [facility] Serum or plasma creatinine m easurement (mass/volume)Ordered By: Joey Encarnacion on 07-14-2023 Creatinine [Mass/Vol] 0.67 mg/dL 0.70-1.30 [facility] Comment on above: The validity of the calculated GFR & GFRAA in patients over 70 years has not been determined. Clinical correlation is essential. Serum or plasma urea nitroge n measurement (mass/volume)Ordered By: Joey Encarnacion on 07-14-2023 Urea nitrogen [Mass/Vol] 10 mg/dL 7-18 [facility] Squamous epithelial cells de tection in urine sediment by light microscopyOrdered By: Joey Encarnacion on 07-14-2023 Epithelial cells.squamous LM Ql (Urine sed) 0-5 SEEN /hpf 0-5 [facility] Thin prep Papanicolaou smear with manual screeningOrdered By: Joey Encarnacion on 07-14-2023 Thin prep Papanicolaou smear with manual screening 12 U/L 15-37 [facility] Thin prep Papanicolaou smear with manual screening 12 5-15 [facility] Urine blood detectionOrdered By: Joey Encarnacion on 07-14-2023 RBC Ql (U) 10 /ul Negative [facility] RBC Ql (U) 0 SEEN /hpf 0-5 [facility] Urine clarityOrdered By: Mike Encarnacion on 07-14-2023 Clarity (U) Sl. Cloudy Clear [facility] Urine color determinationOrd ered By: Joey Encarnacion on 07-14-2023 Color (U) Yellow Yellow [facility] Urine glucose detectionOrder ed By: Joey Encarnacion on 07-14-2023 Glucose Ql (U) 1000 mg/dl Normal [facility] Urine leukocyte esterase det ection by dipstickOrdered By: Joey Encarnacion on 07-14-2023 Leukocyte esterase Test strip Ql (U) 25 /ul Negative [facility] Urine pHOrdered By: Joey Encarnacion on 07-14-2023 pH (U) 5.0 [pH] 5.0 - 8.0 [facility] Urine sediment bacteria coun t by microscopy (number/high power field)Ordered By: Joey Encarnacion on 07-14-2023 Bacteria LM.HPF (Urine sed) [#/Area] 0 /[HPF] None Seen [facility] Urine specific gravity measu rementOrdered By: Joey Encarnacion on 07-14-2023 Specific gravity (U) [Rel density] 1.025 1.002-1.030 [facility] Urobilinogen Auto test strip Ql (U)Ordered By: Joey Encarnacion on 07-14-2023 Urobilinogen Ql (U) Normal mg/dl Normal [facility] US KIDNEY/BLADDERon 05-29-20 [facility] UA DIP, URINE (POC)on 2022 BILIRUBIN UA (POCT) Small Abnormal Negative [facility] CLARITY UA (POCT) Slightly Cloudy Cl [facility] COLOR UA (POCT) Dark yellow [facility] GLUCOSE UA (POCT) 500 mg/dL Abnormal Negative mg/dL [facility] Hemoglobin Ql (U) Trace-intact Abnormal Negative [facility] KETONE UA (POCT) 40 mg/dL Abnormal Negative mg/dL [facility] LEUKOCYTES UA (POCT) Negative [facility] NITRITE UA (POCT) Negative Negative [facility] PH UA (POCT) 6.0 4.5 - 8.0 [facility] Protein Ql (U) 30 mg/dL Abnormal Negative mg/dL [facility] SPECIFIC GRAVITY UA (POCT) 1.015 1.005 - 1.030 [facility] UROBILINOGEN UA (POCT) 2.0 E.U./dL Abnormal Saritha l E.U./dL [facility] Absolute lymphocyte countOrd ered By: Frantz Connors on 05-19-2023 Lymphocytes Auto (Unsp spec) [#/Vol] 1.22 10*3/uL 0.83-4.51 [facility] Amorphous sediment detection in urine sediment by light microscopyOrdered By: Frantz Connors on 05-19-2023 Amorphous sediment LM Ql (Urine sed) 1+ URATE [facility] Basophil percentageOrdered B y: Frantz Connors on 05-19-2023 Basophil percentage 0 SEEN /hpf 0-5 [facility] Basophils/100 WBC (Bld) 0.5 % 0-1 [facility] Bilirubin [Mass/Vol] 0.90 mg/dL 0.20-1.00 [facility] Comment on above: For patients on eltr ombopag therapy, use of Dimension [place] TBIL is not recommended. Chloride [Moles/Vol] 98 mmol/L 98-107 [facility] Eosinophils/100 WBC (Bld) 0.1 % 0-5 [facility] Glucose [Mass/Vol] 261 mg/dL 74-106 [facility] Comment on above: Glucose result great er than or equal to 200 mg/dLsuggests DIABETES MELLITUS per A.D.A. criteria. Neutrophils (Bld) [#/Vol] 10.3 10*3/uL 2.0-7.7 [facility] Neutrophils/100 WBC (Bld) 84.8 % 47-70 [facility] Potassium [Moles/Vol] 3.2 mmol/L 3.5-5.1 [facility] Protein [Mass/Vol] 8.0 g/dL 6.4-8.2 [facility] Sodium [Moles/Vol] 134 mmol/L 136-145 [facility] WBC (Bld) [#/Vol] 12.2 10*3/uL 4.4-11.0 [facility] Bilirubin Test strip Ql (U)O rdered By: Frantz Connors on 05-19-2023 Bilirubin Ql (U) Negative Negative [facility] Blood erythrocytes count (nu mber/volume)Ordered By: Frantz Connors on 05-19-2023 RBC (Bld) [#/Vol] 5.74 10*6/uL 4.6-6.2 [facility] Blood hemoglobin measurement (mass/volume)Ordered By: Frantz Connors on 05-19-2023 Hemoglobin (Bld) [Mass/Vol] 16.9 g/dL 13.0-16.5 [facility] Blood lymphocytes/100 leukoc ytesOrdered By: Frantz Connors on 05-19-2023 Lymphocytes/100 WBC (Bld) 10.0 % 19-41 [facility] Blood monocytes/100 leukocyt esOrdered By: Frantz Connors on 05-19-2023 Monocytes/100 WBC (Bld) 4.0 % 0-10 [facility] Blood platelet mean volumeOr dered By: Frantz Connors on 05-19-2023 Platelet mean volume (Bld) [Entitic vol] 11.8 fL 6.2-12.0 [facility] Determination of erythrocyte mean corpuscular volume (MCV)Ordered By: Frantz Connors on 05-19-2023 MCV (RBC) [Entitic vol] 88.0 fL 80-94 [facility] Direct bilirubinOrdered By: Frantz Connors on 05-19-2023 Bilirubin.direct [Mass/Vol] 0.27 mg/dL 0.00-0.30 [facility] Hematocrit Auto (Bld) [Volum e fraction]Ordered By: Frantz Connors on 05-19-2023 Hematocrit (Bld) [Volume fraction] 50.5 % 40-54 [facility] Ketones Test strip Ql (U)Ord ered By: Frantz Connors on 05-19-2023 Ketones Ql (U) 150 mg/dl Negative [facility] Comment on above: CRITICAL VALUE VERIF IED. CALLED TO OPHELIA KHAN RN ER05/19/23 1630 nAastacio Angeles.RESULTS READ BACK BY SAME . CRITICAL VALUE *H Laboratory - Chemistry and C hemistry - challengeOrdered By: Frantz Connors on 05-19-2023 ALP [Catalytic activity/Vol] 89 U/L 45-117 [facility] ALT [Catalytic activity/Vol] 26 U/L 16-61 [facility] CO2 [Moles/Vol] 23.0 mmol/L 21.0-32.0 [facility] Globulin (S) [Mass/Vol] 4.4 g/dL 2.2-4.2 [facility] Lipase [Catalytic activity/Vol] 12 U/L 13-75 [facility] Comment on above: Please note:LIPASE r evised reference range effective 22. New Lipase methodology. Expected to produce lower values than the previous assay method. NEW Reference Range: 13 - 75 U/L Urea nitrogen/Creatinine [Mass ratio] 15.0 mg/mg 10-20 [facility] Laboratory - Hematology and Cell countsOrdered By: Frantz Connors on 05-19-2023 Erythrocyte distribution width (RBC) [Entitic vol] 42.6 fL 35.1-43.9 [facility] Erythrocyte distribution width (RBC) [Ratio] 13.2 % 11.6-14.6 [facility] Immature granulocytes/100 WBC (Bld) 0.600 % 0.0-0.9 [facility] Comment on above: IG% - Immature Granu locytes (promyelocytes, myelocytes and metamyelocytes) > 1% indicates that a LEFT SHIFT is Present. MCH (RBC) [Entitic mass] 29.4 pg 27.0-32.0 [facility] Nucleated RBC/100 WBC (Bld) [Ratio] 0 % 0-5 [facility] MCHC Auto (RBC) [Mass/Vol]Or dered By: Frantz Connors on 05-19-2023 MCHC (RBC) [Mass/Vol] 33.5 g/dL 32-36 [facility] Mucus LM Ql (Urine sed)Order ed By: Frantz Connors on 05-19-2023 Mucus Ql (Urine sed) 0 SEEN /hpf [facility] Nitrite Test strip Ql (U)Ord ered By: Frantz Connors on 05-19-2023 Nitrite Ql (U) Negative Negative [facility] No Panel InformationOrdered By: Frantz Connors on 05-19-2023 Estimated Creatinine Clearance Calc 163.97 ml/min [facility] Estimated GFR (MDRD) Amer 169 mL/min >60 [facility] Comment on above: GFR Calc Estimated GFR (MDRD) Non-Af Amer 139 mL/min >60 [facility] Comment on above: Non- GFR Calc Platelets bldOrdered By: Melvi Connors on 05-19-2023 Platelets (Bld) [#/Vol] 322 10*3/uL 150-450 [facility] Protein Test strip Ql (U)Ord ered By: Frantz Connors on 05-19-2023 Protein Ql (U) 30 mg/dl Negative [facility] Serum or plasma albumin valente urement (mass/volume)Ordered By: Frantz Connors on 05-19-2023 Albumin [Mass/Vol] 3.6 g/dL 3.2-5.0 [facility] Serum or plasma calcium valente urement (mass/volume)Ordered By: Frantz Connors on 05-19-2023 Calcium [Mass/Vol] 9.2 mg/dL 8.5-10.1 [facility] Serum or plasma creatinine m easurement (mass/volume)Ordered By: Frantz Connors on 05-19-2023 Creatinine [Mass/Vol] 0.67 mg/dL 0.70-1.30 [facility] Comment on above: The validity of the calculated GFR & GFRAA in patients over 70 years has not been determined. Clinical correlation is essential. Serum or plasma urea nitroge n measurement (mass/volume)Ordered By: Frantz Connors on 05-19-2023 Urea nitrogen [Mass/Vol] 10 mg/dL 7-18 [facility] Squamous epithelial cells de tection in urine sediment by light microscopyOrdered By: Frantz Connors on 05-19-2023 Epithelial cells.squamous LM Ql (Urine sed) 0-5 SEEN /hpf 0-5 [facility] Thin prep Papanicolaou smear with manual screeningOrdered By: Frantz Connors on 05-19-2023 Thin prep Papanicolaou smear with manual screening 14 U/L 15-37 [facility] Thin prep Papanicolaou smear with manual screening 13 5-15 [facility] Urine blood detectionOrdered By: Frantz Connors on 05-19-2023 RBC Ql (U) Negative Negative [facility] RBC Ql (U) 0 SEEN /hpf 0-5 [facility] Urine clarityOrdered By: Melvi Connors on 05-19-2023 Clarity (U) Sl. Cloudy Clear [facility] Urine color determinationOrd ered By: Frantz Connors on 05-19-2023 Color (U) Yellow Yellow [facility] Urine glucose detectionOrder ed By: Frantz Connors on 05-19-2023 Glucose Ql (U) 1000 mg/dl Normal [facility] Urine leukocyte esterase det ection by dipstickOrdered By: Frantz Connors on 05-19-2023 Leukocyte esterase Test strip Ql (U) Negative Negative [facility] Urine pHOrdered By: Frantz ureña on 05-19-2023 pH (U) 5.0 [pH] 5.0 - 8.0 [facility] Urine sediment bacteria coun t by microscopy (number/high power field)Ordered By: Frantz Connors on 05-19-2023 Bacteria LM.HPF (Urine sed) [#/Area] 0 /[HPF] None Seen [facility] Urine specific gravity measu rementOrdered By: Frantz Connors on 05-19-2023 Specific gravity (U) [Rel density] 1.030 1.002-1.030 [facility] Urobilinogen Auto test strip Ql (U)Ordered By: Frantz Connors on 05-19-2023 Urobilinogen Ql (U) Normal mg/dl Normal [facility] .Auto Diffon 03-28-2023 Basophil, Absolute 0.0 10 3/mcL Normal 0.0-0.2 [facility] ([place]) Comment on above: Performed By: #### C BC, MORPH, MDW, CMP, LIP, ADIFF, GFR, ANEU #### [address] [address] Basophils/100 WBC (Bld) 0.4 % Normal 0.0-2.5 [facility] ([place]) Comment on above: Performed By: #### C BC, MORPH, MDW, CMP, LIP, ADIFF, GFR, ANEU #### [address] [address] Eosinophil, Absolute 0.0 10 3/mcL Normal 0.0-0.4 [facility] ([place]) Comment on above: Performed By: #### C BC, MORPH, MDW, CMP, LIP, ADIFF, GFR, ANEU #### [address] [address] Eosinophils/100 WBC (Bld) 0.1 % Normal 0.0-7.0 [facility] ([place]) Comment on above: Performed By: #### C BC, MORPH, MDW, CMP, LIP, ADIFF, GFR, ANEU #### [address] [address] Lymphocyte, Absolute 1.3 10 3/mcL Normal 0.8-3.9 [facility] ([place]) Comment on above: Performed By: #### C BC, MORPH, MDW, CMP, LIP, ADIFF, GFR, ANEU #### [address] [address] Lymphocytes/100 WBC (Bld) 12.7 % Normal 10.0-50.0 [facility] ([place]) Comment on above: Performed By: #### C BC, MORPH, MDW, CMP, LIP, ADIFF, GFR, ANEU #### [address] [address] Monocyte, Absolute 0.4 10 3/mcL Normal 0.2-1.0 [facility] ([place]) Comment on above: Performed By: #### C SANTOS, BESS WINN, CMP, LIP, ADIFF, GFR, ANEU #### [address] [address] Monocytes/100 WBC (Bld) 4.2 % Normal 1.7-13.0 [facility] ([place]) Comment on above: Performed By: #### C SANTOS, BESS WINN, CMP, LIP, ADIFF, GFR, ANEU #### [address] [address] Neutrophils/100 WBC (Bld) 82.6 % High 37.0-80.0 [facility] ([place]) Comment on above: Performed By: #### C SANTOS, BESS WINN, CMP, LIP, ADIFF, GFR, ANEU #### [address] [address] .GFRon 03-28-2023 GFR 167 ml/min/1.73sqm Normal [facility] ([place]) Comment on above: Result Comment: GFR Population mean for , Non- Americans Ages 20-29 = 116 mL/min/1.73 sq.m. Ages 30-39 = 107 mL/min/1.73 sq.m. Ages 40-49 = 99 mL/min/1.73 sq.m. Ages 50-59 = 93 mL/min/1.73 sq.m. Ages 60-69 = 85 mL/min/1.73 sq.m. Ages 70+ = 75 mL/min/1.73 sq.m. Chronic Kidney Disease: Less than 60 mL/min/1.73 square meters End Stage Renal Disease: Less than 15 mL/min/1.73 square meters Performed By: #### C SANTOS, TATUM, BESS, CMP, LIP, ADIFF, GFR, ANEU #### [address] [address] GFR Non- 138 ml/min/1.73sqm Normal [facility] ([place]) Comment on above: Result Comment: GFR Population mean for , Non- Americans Ages 20-29 = 116 mL/min/1.73 sq.m. Ages 30-39 = 107 mL/min/1.73 sq.m. Ages 40-49 = 99 mL/min/1.73 sq.m. Ages 50-59 = 93 mL/min/1.73 sq.m. Ages 60-69 = 85 mL/min/1.73 sq.m. Ages 70+ = 75 mL/min/1.73 sq.m. Chronic Kidney Disease: Less than 60 mL/min/1.73 square meters End Stage Renal Disease: Less than 15 mL/min/1.73 square meters Performed By: #### C SANTOS, TATUM, BESS, CMP, LIP, ADIFF, GFR, ANEU #### [place] [address] .MDWon 03-28-2023 Monocyte Distribution Width Not performed Normal 0.00-20.00 [facility] ([place]) Comment on above: Result Comment: BSES testing performed only on adult ER patients between the ages of 18-89 years. Performed By: #### C SANTOS, TATUM, BESS, CMP, LIP, ADIFF, GFR, ANEU #### [place] [address] .Morphon 03-28-2023 Platelet Estimate Normal Normal [facility] ([place]) Comment on above: Performed By: #### C SANTOS, TATUM, BESS, CMP, LIP, ADIFF, GFR, ANEU #### [place] [address] .NEUABSon 03-28-2023 Neutrophil, Absolute 8.6 10 3/mcL High 2.9-6.2 [facility] ([place]) Comment on above: Performed By: #### C SANTOS, TATUM, BESS, CMP, LIP, ADIFF, GFR, ANEU #### [place] [address] .Urinalysis Microscopic (AO) on 03-28-2023 UA RBC 0-5 Abnormal None Seen [facility] ([place]) Comment on above: Performed By: #### U AMICAO, UA #### [address] [address] UA Squam Epithelial 0-5 Abnormal None Seen [facility] ([place]) Comment on above: Performed By: #### U ARTURO UA #### [address] [address] UA WBC 0-5 Abnormal None Seen [facility] ([place]) Comment on above: Performed By: #### U ARTURO UA #### [address] [address] CBCon 03-28-2023 Erythrocyte distribution width (RBC) [Ratio] 13.2 % Normal 11.5-14.5 [facility] ([place]) Comment on above: Performed By: #### C TATUM GRAHAM MDW, CMP, LIP, ADIFF, GFR, ANEU #### [address] [address] Hematocrit (Bld) [Volume fraction] 51.6 % Normal 42.0-52.0 [facility] ([place]) Comment on above: Performed By: #### C TATUM GRAHAM MDW, CMP, LIP, ADIFF, GFR, ANEU #### [address] [address] Hgb 17.6 G/dL Normal 14.0-18.0 [facility] ([place]) Comment on above: Performed By: #### C TATUM GRAHAM MDW, CMP, LIP, ADIFF, GFR, ANEU #### [address] [address] MCH (RBC) [Entitic mass] 30.2 pg Normal 27.0-31.2 [facility] ([place]) Comment on above: Performed By: #### C TATUM GRAHAM MDW, CMP, LIP, ADIFF, GFR, ANEU #### [address] [address] MCHC 34.0 G/dL Normal 31.8-35.4 [facility] ([place]) Comment on above: Performed By: #### C TATUM GRAHAM MDW, CMP, LIP, ADIFF, GFR, ANEU #### [address] [address] MCV (RBC) [Entitic vol] 88.7 fL Normal 80.0-94.0 [facility] ([place] Comment on above: Performed By: #### C SANTOS, TATUM, MDW, CMP, LIP, ADIFF, GFR, ANEU #### [address] [address] Platelet 279 10 3/mcL Normal 130-400 [facility] ([place]) Comment on above: Performed By: #### C BC, TATUM, MDW, CMP, LIP, ADIFF, GFR, ANEU #### [address] [address] Platelet mean volume (Bld) [Entitic vol] 10.1 fL Normal 7.4-10.4 [facility] ([place]) Comment on above: Performed By: #### C SANTOS, TATUM, MDW, CMP, LIP, ADIFF, GFR, ANEU #### [address] [address] RBC 5.82 10 6/mcL Normal 4.04-6.13 [facility] ([place]) Comment on above: Performed By: #### C SANTOS, TATUM, MDW, CMP, LIP, ADIFF, GFR, ANEU #### [address] [address] WBC 10.4 10 3/mcL Normal 4.6-10.8 [facility] ([place]) Comment on above: Performed By: #### C SANTOS, TATUM, MDW, CMP, LIP, ADIFF, GFR, ANEU #### [address] [address] CMPon 03-28-2023 Albumin Level 4.2 G/dL Normal 3.5-5.0 [facility] ([place]) Comment on above: Performed By: #### C BC, TATUM, MDW, CMP, LIP, ADIFF, GFR, ANEU #### [address] [address] Albumin/Globulin [Mass ratio] 1.3 {ratio} Normal 1.1-2.5 [facility] ([place]) Comment on above: Performed By: #### C SANTOS, BESS WINN, CMP, LIP, ADIFF, GFR, ANEU #### [address] [address] ALP [Catalytic activity/Vol] 97 U/L Normal 40-135 [facility] ([place]) Comment on above: Performed By: #### C SANTOS, BESS WINN, CMP, LIP, ADIFF, GFR, ANEU #### [address] [address] ALT [Catalytic activity/Vol] 39 U/L Normal 16-63 [facility] ([place]) Comment on above: Performed By: #### C TATUM GRAHAM MDW, CMP, LIP, ADIFF, GFR, ANEU #### [address] [address] AST [Catalytic activity/Vol] 21 U/L Normal 10-40 [facility] ([place]) Comment on above: Performed By: #### C TATUM GRAHAM MDW, CMP, LIP, ADIFF, GFR, ANEU #### [address] [address] Bili Total 0.9 mg/dL Normal 0.2-1.0 [facility] ([place]) Comment on above: Result Comment: Use of this assay is not recommended for patients undergoing treatment with eltrombopag due to the potential for falsely elevated results. Performed By: #### C TATUM GRAHAM MDW, CMP, LIP, ADIFF, GFR, ANEU #### [address] [address] BUN/Creatinine Ratio 14 ratio Normal 7-27 [facility] ([place]) Comment on above: Performed By: #### C TATUM GRAHAM MDW, CMP, LIP, ADIFF, GFR, ANEU #### [address] [address] Calcium [Mass/Vol] 9.4 mg/dL Normal 8.4-10.2 [facility] ([place]) Comment on above: Performed By: #### C SANTOS, BESS WINN, CMP, LIP, ADIFF, GFR, ANEU #### [address] [address] Chloride [Moles/Vol] 99 mmol/L Normal 98-107 [facility] ([place]) Comment on above: Performed By: #### C SANTOS, TATUM, BESS, CMP, LIP, ADIFF, GFR, ANEU #### [address] [address] CO2 [Moles/Vol] 25 mmol/L Normal 22-29 [facility] ([place]) Comment on above: Performed By: #### C SANTOS, TATUM, BESS, CMP, LIP, ADIFF, GFR, ANEU #### [address] [address] Electrolyte Balance 15.0 mEq/L Normal 4.0-15.0 [facility] ([place]) Comment on above: Performed By: #### C SANTOS, BESS WINN, CMP, LIP, ADIFF, GFR, ANEU #### [address] [address] Globulin 3.3 G/dL Normal [facility] ([place]) Comment on above: Performed By: #### C SANTOS, BESS WINN, CMP, LIP, ADIFF, GFR, ANEU #### [address] [address] Glucose [Mass/Vol] 328 mg/dL High 70-105 [facility] ([place]) Comment on above: Performed By: #### C SANTOS, BESS WINN, CMP, LIP, ADIFF, GFR, ANEU #### [address] [address] Potassium [Moles/Vol] 3.6 mmol/L Normal 3.5-5.1 [facility] ([place]) Comment on above: Performed By: #### C SANTOS, TATUM, BESS, CMP, LIP, ADIFF, GFR, ANEU #### [address] [address] Sodium [Moles/Vol] 139 mmol/L Normal 136-145 [facility] ([place]) Comment on above: Performed By: #### C BC, MORPH, MDW, CMP, LIP, ADIFF, GFR, ANEU #### [address] [address] Total Protein 7.5 G/dL Normal 6.4-8.2 [facility] ([place]) Comment on above: Performed By: #### C BC, MORPH, MDW, CMP, LIP, ADIFF, GFR, ANEU #### [address] [address] Urea nitrogen [Mass/Vol] 9 mg/dL Normal 7-18 [facility] ([place]) Comment on above: Performed By: #### C BC, MORPH, MDW, CMP, LIP, ADIFF, GFR, ANEU #### [address] [address] Creatinine [Mass/Vol] 0.64 mg/dL Low 0.70-1.30 [facility] ([place]) Comment on above: Performed By: #### C BC, MORPH, MDW, CMP, LIP, ADIFF, GFR, ANEU #### [address] [address] [address] ABD/PELVIS W/ IV CONTRAST ONLYon 03-28-2023 CT ABD/PELVIS W/ IV CONTRAST ONLY ORIGINAL EXAMINATION: CT OF THE ABDOMEN AND [...] Date: 03/28/2023 5:27:10 PM Ordering Provider: SATNAM Ayon [facility] ([place]) LABORATORYOrdered By: Balbina Miles on 03-28-2023 Blood Glucose Interventions Notify physician (03/28/23 6:15 PM) [facility] Blood Glucose Testing Reason Routine (03/28/23 6:15 PM) [facility] Glucose [Mass/Vol] 261 mg/dL Invalid Interpretation Code 70 - 110 mg/dL [facility] LABORATORYOrdered By: SYSTEM SYSTEM on 03-28-2023 Albumin BCP dye [Mass/Vol] 4.2 G/dL Invalid Interpretation Code 3.5 - 5.0 G/dL AO ADM SS Albumin/Globulin [Mass ratio] 1.3 {ratio} Invalid Interpretation Code 1.1 - 2.5 ratio AO ADM SS ALP [Catalytic activity/Vol] 97 U/L Invalid Interpretation Code 40 - 135 U/L AO ADM SS ALT With P-5'-P [Catalytic activity/Vol] 39 U/L Invalid Interpretation Code 16 - 63 U/L AO ADM SS AST With P-5'-P [Catalytic activity/Vol] 21 U/L Invalid Interpretation Code 10 - 40 U/L AO ADM SS Basophil, Absolute 0.0 103/mcL Invalid Interpretation Code 0.0 - 0.2 10^3/mcL AO Workflow SS Basophils/100 WBC (Bld) 0.4 % Invalid Interpretation Code 0.0 - 2.5 % AO Workflow SS Bilirubin [Mass/Vol] 0.9 mg/dL Invalid Interpretation Code 0.2 - 1.0 mg/dL AO ADM SS Calcium [Mass/Vol] 9.4 mg/dL Invalid Interpretation Code 8.4 - 10.2 mg/dL AO ADM SS Chloride [Moles/Vol] 99 mmol/L Invalid Interpretation Code 98 - 107 mmol/L AO ADM SS CO2 [Moles/Vol] 25 mmol/L Invalid Interpretation Code 22 - 29 mmol/L AO ADM SS Creatinine [Mass/Vol] 0.64 mg/dL Invalid Interpretation Code 0.70 - 1.30 mg/dL AO ADM SS Electrolyte Balance 15.0 mEq/L Invalid Interpretation Code 4.0 - 15.0 mEq/L AO ADM SS Eosinophil, Absolute 0.0 103/mcL Invalid Interpretation Code 0.0 - 0.4 10^3/mcL AO Workflow SS Eosinophils/100 WBC (Bld) 0.1 % Invalid Interpretation Code 0.0 - 7.0 % AO Workflow SS Erythrocyte distribution width (RBC) [Ratio] 13.2 % Invalid Interpretation Code 11.5 - 14.5 % AO Workflow SS GFR/1.73 sq M.predicted among blacks MDRD (S/P/Bld) [Vol rate/Area] 167 ml/min/1.73sqm Invalid Interpretation Code AO Chemistry S GFR/1.73 sq M.predicted among non-blacks MDRD (S/P/Bld) [Vol rate/Area] 138 ml/min/1.73sqm Invalid Interpretation Code AO Chemistry S Globulin 3.3 G/dL Invalid Interpretation Code AO ADM SS Glucose [Mass/Vol] 328 mg/dL Invalid Interpretation Code 70 - 105 mg/dL AO ADM SS Hematocrit (Bld) [Volume fraction] 51.6 % Invalid Interpretation Code 42.0 - 52.0 % AO Workflow SS Hemoglobin (Bld) [Mass/Vol] 17.6 G/dL Invalid Interpretation Code 14.0 - 18.0 G/dL AO Workflow SS Lipase [Catalytic activity/Vol] 16 U/L Invalid Interpretation Code 16 - 77 U/L AO ADM SS Lymphocyte, Absolute 1.3 103/mcL Invalid Interpretation Code 0.8 - 3.9 10^3/mcL AO Workflow SS Lymphocytes/100 WBC (Bld) 12.7 % Invalid Interpretation Code 10.0 - 50.0 % AO Workflow SS MCH (RBC) [Entitic mass] 30.2 pg Invalid Interpretation Code 27.0 - 31.2 pg AO Workflow SS MCHC 34.0 G/dL Invalid Interpretation Code 31.8 - 35.4 G/dL AO Workflow SS MCV (RBC) [Entitic vol] 88.7 fL Invalid Interpretation Code 80.0 - 94.0 fL AO Workflow SS Monocyte distribution width Auto (Bld) [Entitic vol] Not Performed 1 *NA* (03/28/23 3:49 PM) Invalid Interpretation Code 0.00 - 20.00 AO Hematology S Comment on above: Result Comment: MDW testing performed only on adult ER patients between the ages of 18-89 years. Monocyte, Absolute 0.4 103/mcL Invalid Interpretation Code 0.2 - 1.0 10^3/mcL AO Workflow SS Monocytes/100 WBC (Bld) 4.2 % Invalid Interpretation Code 1.7 - 13.0 % AO Workflow SS Neutrophil, Absolute 8.6 103/mcL Invalid Interpretation Code 2.9 - 6.2 10^3/mcL AO Workflow SS Neutrophils/100 WBC (Bld) 82.6 % Invalid Interpretation Code 37.0 - 80.0 % AO Workflow SS Platelet mean volume (Bld) [Entitic vol] 10.1 fL Invalid Interpretation Code 7.4 - 10.4 fL AO Workflow SS Platelets (Bld) [#/Vol] 279 103/mcL Invalid Interpretation Code 130 - 400 10^3/mcL AO Workflow SS Potassium [Moles/Vol] 3.6 mmol/L Invalid Interpretation Code 3.5 - 5.1 mmol/L AO ADM SS Protein [Mass/Vol] 7.5 G/dL Invalid Interpretation Code 6.4 - 8.2 G/dL AO ADM SS RBC (Bld) [#/Vol] 5.82 106/mcL Invalid Interpretation Code 4.04 - 6.13 10^6/mcL AO Workflow SS Sodium [Moles/Vol] 139 mmol/L Invalid Interpretation Code 136 - 145 mmol/L AO ADM SS Urea nitrogen [Mass/Vol] 9 mg/dL Invalid Interpretation Code 7 - 18 mg/dL AO ADM SS Urea nitrogen/Creatinine [Mass ratio] 14 ratio Invalid Interpretation Code 7 - 27 ratio AO ADM SS WBC (Bld) [#/Vol] 10.4 103/mcL Invalid Interpretation Code 4.6 - 10.8 10^3/mcL AO Workflow SS LABORATORYOrdered By: Kandice Terrell on 03-28-2023 Appearance (U) Slightly Cloudy *ABN* (03/28/23 3:49 PM) Invalid Interpretation Code Clear AO Auto Urine SS Bilirubin Ql (U) Negative (03/28/23 3:49 PM) Invalid Interpretation Code Negative AO Auto Urine SS Color (U) Yellow (03/28/23 3:49 PM) Invalid Interpretation Code AO Auto Urine SS Glucose Test strip (U) [Mass/Vol] 500 mg/dL Invalid Interpretation Code Negativemg/dL AO Auto Urine SS Hemoglobin Auto test strip (U) [Mass/Vol] Trace *ABN* (03/28/23 3:49 PM) Invalid Interpretation Code Negative AO Auto Urine SS Ketones Ql (U) >=160 mg/dL Invalid Interpretation Code Negativemg/dL AO Auto Urine SS Platelet Estimate Normal (03/28/23 3:49 PM) Invalid Interpretation Code AO Hematology S UA Leuk Est Negative (03/28/23 3:49 PM) Invalid Interpretation Code Negative AO Auto Urine SS UA Nitrite Negative (03/28/23 3:49 PM) Invalid Interpretation Code Negative AO Auto Urine SS UA pH 6.5 (03/28/23 3:49 PM) Invalid Interpretation Code 5.0 - 8.0 AO Auto Urine SS UA Protein 100 mg/dL Invalid Interpretation Code Negativemg/dL AO Auto Urine SS UA RBC 0-5 /HPF Invalid Interpretation Code None Seen/HPF AO Auto Urine SS UA Spec Grav 1.020 (03/28/23 3:49 PM) Invalid Interpretation Code 1.015-1.025 AO Auto Urine SS UA Specimen Type Clean Catch (03/28/23 3:49 PM) Invalid Interpretation Code AO Auto Urine SS UA Squam Epithelial 0-5 /HPF Invalid Interpretation Code None Seen/HPF AO Auto Urine SS UA Urobilinogen 0.2 E.U./dL Invalid Interpretation Code 0.2-1.0E.U./d L AO Auto Urine SS WBC LM.HPF (Urine sed) [#/Area] 0-5 /HPF Invalid Interpretation Code None Seen/HPF AO Auto Urine SS LIPon 03-28-2023 Lipase Level 16 U/L Normal 16-77 [facility] ([place]) Comment on above: Performed By: #### C BC, MORPH, MDW, CMP, LIP, ADIFF, GFR, ANEU #### [place] [id number] UAon 03-28-2023 Color (U) Yellow Normal [facility] ([place]) Comment on above: Performed By: #### U AMICAO, UA #### [place] [address] Glucose (U) [Mass/Vol] 500 mg/dL Abnormal Negative [facility] ([place]) Comment on above: Performed By: #### U AMICAO, UA #### [place] [id number] Ketones Ql (U) >=160 Abnormal Negative [facility] ([place]) Comment on above: Performed By: #### U AMICAO, UA #### [place] [address] UA Appear Slightly Cloudy Abnormal Clear [facility] ([place]) Comment on above: Performed By: #### U AMICAO, UA #### [place] [address] UA Blood Trace Abnormal Negative [facility] ([place]) Comment on above: Performed By: #### U AMICAO, UA #### [address] [address] UA Leuk Est Negative Normal Negative [facility] ([place]) Comment on above: Performed By: #### U AMICAO, UA #### [place] [id number] UA Nitrite Negative Normal Negative [facility] ([place]) Comment on above: Performed By: #### U AMICAO, UA #### [place] [id number] UA pH 6.5 Normal 5.0 - 8.0 [facility] ([place]) Comment on above: Performed By: #### U AMICAO, UA #### [place] [address] UA Protein 100 mg/dL Abnormal Negative [facility] ([place]) Comment on above: Performed By: #### U AMICAO, UA #### [place] [id number] UA Spec Grav 1.020 Normal 1.015-1.025 [facility] ([place]) Comment on above: Performed By: #### U AMICAO, UA #### [place] [id number] UA Specimen Type Clean Catch Normal [facility] ([place]) Comment on above: Performed By: #### U AMICAO, UA #### [place] [id number] [place] [id number] UA Urobilinogen 0.2 E.U./dL Normal 0.2-1.0 [facility] ([place]) Comment on above: Performed By: #### U AMICAO, UA #### [place] [id number] Urobilinogen (U) [Mass/Vol] Negative Normal Negative [facility] ([place]) Comment on above: Performed By: #### U AMICAO, UA #### [place] [id number] Absolute lymphocyte counton 03-12-2022 Lymphocytes Auto (Unsp spec) [#/Vol] 1.11 10*3/uL 0.83-4.51 [facility] Work Phone: Basophil percentageon 2021 Basophils/100 WBC (Bld) 0.4 % 0-1 [facility] Work Phone: Bilirubin [Mass/Vol] 1.00 mg/dL 0.20-1.00 [facility] Work Phone: Comment on above: For patients on eltr ombopag therapy, use of Dimension [place] TBIL is not recommended. Chloride [Moles/Vol] 102 mmol/L 98-107 [facility] Work Phone: Eosinophils/100 WBC (Bld) 0.3 % 0-5 [facility] Work Phone: Glucose [Mass/Vol] 187 mg/dL 74-106 [facility] Work Phone: Comment on above: Fasting Glucose resu lt greater than or equal to 126 mg/dL suggests DIABETES MELLITUS per A.D.A. criteria. Neutrophils (Bld) [#/Vol] 8.2 10*3/uL 2.0-7.7 [facility] Work Phone: Neutrophils/100 WBC (Bld) 82.3 % 47-70 [facility] Work Phone: Potassium [Moles/Vol] 3.5 mmol/L 3.5-5.1 [facility] Work Phone: Protein [Mass/Vol] 7.8 g/dL 6.4-8.2 [facility] Work Phone: [phone] Sodium [Moles/Vol] 137 mmol/L 136-145 [facility] Work Phone: WBC (Bld) [#/Vol] 9.9 10*3/uL 4.4-11.0 [facility] Work Phone: Blood erythrocytes count (nu mber/volume)on 03-12-2022 RBC (Bld) [#/Vol] 5.78 10*6/uL 4.6-6.2 [facility] Work Phone: Blood hemoglobin measurement (mass/volume)on 03-12-2022 Hemoglobin (Bld) [Mass/Vol] 17.2 g/dL 13.0-16.5 [facility] Work Phone: Blood lymphocytes/100 leukoc yteson 03-12-2022 Lymphocytes/100 WBC (Bld) 11.2 % 19-41 [facility] Work Phone: Blood monocytes/100 leukocyt eson 03-12-2022 Monocytes/100 WBC (Bld) 5.2 % 0-10 [facility] Work Phone: Blood platelet mean volumeon 03-12-2022 Platelet mean volume (Bld) [Entitic vol] 11.2 fL 6.2-12.0 [facility] Work Phone: Determination of erythrocyte mean corpuscular volume (MCV)on 03-12-2022 MCV (RBC) [Entitic vol] 84.9 fL 80-94 [facility] Work Phone: [phone] Hematocrit Auto (Bld) [Volum e fraction]on 03-12-2022 Hematocrit (Bld) [Volume fraction] 49.1 % 40-54 [facility] Work Phone: Laboratory - Chemistry and C hemistry - challengeon 03-12-2022 ALP [Catalytic activity/Vol] 58 U/L 45-117 [facility] Work Phone: ALT [Catalytic activity/Vol] 36 U/L 16-61 [facility] Work Phone: CO2 [Moles/Vol] 25.0 mmol/L 21.0-32.0 [facility] Work Phone: Globulin (S) [Mass/Vol] 3.9 g/dL 2.2-4.2 [facility] Work Phone: Lipase [Catalytic activity/Vol] 54 U/L 73-393 [facility] Work Phone: Urea nitrogen/Creatinine [Mass ratio] 20.3 mg/mg 10-20 [facility] Work Phone: Laboratory - Hematology and Cell countson 03-12-2022 Erythrocyte distribution width (RBC) [Entitic vol] 39.0 fL 35.1-43.9 [facility] Work Phone: Erythrocyte distribution width (RBC) [Ratio] 12.8 % 11.6-14.6 [facility] Work Phone: Immature granulocytes/100 WBC (Bld) 0.600 % 0.0-0.9 [facility] Work Phone: Comment on above: IG% - Immature Granu locytes (promyelocytes, myelocytes and metamyelocytes) > 1% indicates that a LEFT SHIFT is Present. MCH (RBC) [Entitic mass] 29.8 pg 27.0-32.0 [facility] Work Phone: Nucleated RBC/100 WBC (Bld) [Ratio] 0 % 0-5 [facility] Work Phone: MCHC Auto (RBC) [Mass/Vol]on 03-12-2022 MCHC (RBC) [Mass/Vol] 35.0 g/dL 32-36 [facility] Work Phone: No Panel Informationon 03-12 Estimated Creatinine Clearance Calc 160.83 ml/min [facility] Work Phone: Estimated GFR (MDRD) Amer 163 mL/min >60 [facility] Work Phone: Comment on above: GFR Calc Estimated GFR (MDRD) Non-Af Amer 135 mL/min >60 [facility] Work Phone: Comment on above: Non- GFR Calc Platelets bldon 03-12-2022 Platelets (Bld) [#/Vol] 251 10*3/uL 150-450 [facility] Work Phone: Serum or plasma albumin valente urement (mass/volume)on 03-12-2022 Albumin [Mass/Vol] 3.9 g/dL 3.2-5.0 [facility] Work Phone: Serum or plasma albumin/glob ulin mass ratioon 03-12-2022 Albumin/Globulin [Mass ratio] 1.0 {ratio} 0.9-2.4 [facility] Work Phone: Serum or plasma calcium valente urement (mass/volume)on 03-12-2022 Calcium [Mass/Vol] 9.3 mg/dL 8.5-10.1 [facility] Work Phone: Serum or plasma creatinine m easurement (mass/volume)on 03-12-2022 Creatinine [Mass/Vol] 0.69 mg/dL 0.70-1.30 [facility] Work Phone: Comment on above: The validity of the calculated GFR & GFRAA in patients over 70 years has not been determined. Clinical correlation is essential. Serum or plasma urea nitroge n measurement (mass/volume)on 03-12-2022 Urea nitrogen [Mass/Vol] 14 mg/dL 7-18 [facility] Work Phone: Thin prep Papanicolaou smear with manual screeningon 03-12-2022 Thin prep Papanicolaou smear with manual screening 15 U/L 15-37 [facility] Work Phone: Thin prep Papanicolaou smear with manual screening 10 5-15 [facility] Work Phone: Absolute lymphocyte counton 03-11-2022 Lymphocytes Auto (Unsp spec) [#/Vol] 1.71 10*3/uL 0.83-4.51 [facility] Work Phone: Basophil percentageon 2021 Basophils/100 WBC (Bld) 0.5 % 0-1 [facility] Work Phone: Bilirubin [Mass/Vol] 1.00 mg/dL 0.20-1.00 [facility] Work Phone: Comment on above: For patients on eltr ombopag therapy, use of Dimension [place] TBIL is not recommended. Chloride [Moles/Vol] 100 mmol/L 98-107 [facility] Work Phone: Eosinophils/100 WBC (Bld) 0.4 % 0-5 [facility] Work Phone: Glucose [Mass/Vol] 221 mg/dL 74-106 [facility] Work Phone: Comment on above: Glucose result great er than or equal to 200 mg/dLsuggests DIABETES MELLITUS per A.D.A. criteria. Neutrophils (Bld) [#/Vol] 12.5 10*3/uL 2.0-7.7 [facility] Work Phone: Neutrophils/100 WBC (Bld) 81.0 % 47-70 [facility] Work Phone: Potassium [Moles/Vol] 3.2 mmol/L 3.5-5.1 [facility] Work [facility]: Protein [Mass/Vol] 8.9 g/dL 6.4-8.2 [facility] Work Phone: Sodium [Moles/Vol] 137 mmol/L 136-145 [facility] Work Phone: WBC (Bld) [#/Vol] 15.5 10*3/uL 4.4-11.0 [facility] Work Phone: Blood erythrocytes count (nu mber/volume)on 03-11-2022 RBC (Bld) [#/Vol] 6.07 10*6/uL 4.6-6.2 [facility] Work Phone: Blood hemoglobin measurement (mass/volume)on 03-11-2022 Hemoglobin (Bld) [Mass/Vol] 18.3 g/dL 13.0-16.5 [facility] Work Phone: Comment on above: RESULTS CALLED TO MOOSE NICOLE RN ED 03/11/22 1343 Judy Mir.REPORT READ BACK BY SAME. Blood lymphocytes/100 leukoc yteson 03-11-2022 Lymphocytes/100 WBC (Bld) 11.0 % 19-41 [facility] Work Phone: Blood monocytes/100 leukocyt eson 03-11-2022 Monocytes/100 WBC (Bld) 6.6 % 0-10 [facility] Work Phone: Blood platelet mean volumeon 03-11-2022 Platelet mean volume (Bld) [Entitic vol] 12.0 fL 6.2-12.0 [facility] Work Phone: Determination of erythrocyte mean corpuscular volume (MCV)on 03-11-2022 MCV (RBC) [Entitic vol] 85.2 fL 80-94 [facility] Work Phone: Direct bilirubinon 2 Bilirubin.direct [Mass/Vol] 0.31 mg/dL 0.00-0.30 [facility] Work Phone: Glucose Glucometer (BldC) [M ass/Vol]on 03-11-2022 Glucose [Mass/Vol] 242 mg/dL 74-106 [facility] Work Phone: Comment on above: MANAGEMENT OF PATIEN T CARE PER NURSING PROTOCOL Hematocrit Auto (Bld) [Volum e fraction]on 03-11-2022 Hematocrit (Bld) [Volume fraction] 51.7 % 40-54 [facility] Work Phone: Laboratory - Chemistry and C hemistry - challengeon 03-11-2022 ALP [Catalytic activity/Vol] 67 U/L 45-117 [facility] Work Phone: ALT [Catalytic activity/Vol] 45 U/L 16-61 [facility] Work Phone: CO2 [Moles/Vol] 25.0 mmol/L 21.0-32.0 [facility] Work Phone: Globulin (S) [Mass/Vol] 4.5 g/dL 2.2-4.2 [facility] Work Phone: Lipase [Catalytic activity/Vol] 53 U/L 73-393 [facility] Work Phone: Urea nitrogen/Creatinine [Mass ratio] 15.2 mg/mg 10-20 [facility] Work Phone: Laboratory - Hematology and Cell countson 03-11-2022 Erythrocyte distribution width (RBC) [Entitic vol] 39.8 fL 35.1-43.9 [facility] Work Phone: Erythrocyte distribution width (RBC) [Ratio] 12.9 % 11.6-14.6 [facility] Work Phone: Immature granulocytes/100 WBC (Bld) 0.500 % 0.0-0.9 [facility] Work Phone: Comment on above: IG% - Immature Granu locytes (promyelocytes, myelocytes and metamyelocytes) > 1% indicates that a LEFT SHIFT is Present. MCH (RBC) [Entitic mass] 30.1 pg 27.0-32.0 [facility] Work Phone: Nucleated RBC/100 WBC (Bld) [Ratio] 0 % 0-5 [facility] Work Phone: MCHC Auto (RBC) [Mass/Vol]on 03-11-2022 MCHC (RBC) [Mass/Vol] 35.4 g/dL 32-36 [facility] Work Phone: No Panel Informationon 03-11 Estimated Creatinine Clearance Calc 130.56 ml/min [facility] Work Phone: Estimated GFR (MDRD) Amer 128 mL/min >60 [facility] Work Phone: Comment on above: GFR Calc Estimated GFR (MDRD) Non-Af Amer 105 mL/min >60 [facility] Work Phone: Comment on above: Non- GFR Calc Platelets bldon 03-11-2022 Platelets (Bld) [#/Vol] 323 10*3/uL 150-450 [facility] Work Phone: Serum or plasma albumin valente urement (mass/volume)on 03-11-2022 Albumin [Mass/Vol] 4.4 g/dL 3.2-5.0 [facility] Work Phone: Serum or plasma calcium valente urement (mass/volume)on 03-11-2022 Calcium [Mass/Vol] 9.7 mg/dL 8.5-10.1 [facility] Work Phone: Serum or plasma creatinine m easurement (mass/volume)on 03-11-2022 Creatinine [Mass/Vol] 0.85 mg/dL 0.70-1.30 [facility] Work Phone: Comment on above: The validity of the calculated GFR & GFRAA in patients over 70 years has not been determined. Clinical correlation is essential. Serum or plasma urea nitroge n measurement (mass/volume)on 03-11-2022 Urea nitrogen [Mass/Vol] 13 mg/dL 7-18 [facility] Work Phone: Thin prep Papanicolaou smear with manual screeningon 03-11-2022 Thin prep Papanicolaou smear with manual screening 24 U/L 15-37 [facility] Work Phone: Thin prep Papanicolaou smear with manual screening 12 5-15 [facility] Work Phone: Absolute lymphocyte counton 03-10-2022 Lymphocytes Auto (Unsp spec) [#/Vol] 1.94 10*3/uL 0.83-4.51 [facility] Work Phone: Basophil percentageon 2021 Basophils/100 WBC (Bld) 0.6 % 0-1 [facility] Work Phone: Bilirubin [Mass/Vol] 0.80 mg/dL 0.20-1.00 [facility] Work Phone: Comment on above: For patients on eltr ombopag therapy, use of Dimension [place] TBIL is not recommended. Chloride [Moles/Vol] 107 mmol/L 98-107 [facility] Work Phone: Eosinophils/100 WBC (Bld) 1.4 % 0-5 [facility] Work Phone: Glucose [Mass/Vol] 169 mg/dL 74-106 [facility] Work Phone: Comment on above: Fasting Glucose resu lt greater than or equal to 126 mg/dL suggests DIABETES MELLITUS per A.D.A. criteria. Neutrophils (Bld) [#/Vol] 8.2 10*3/uL 2.0-7.7 [facility] Work Phone: Neutrophils/100 WBC (Bld) 73.5 % 47-70 [facility] Work Phone: Potassium [Moles/Vol] 3.6 mmol/L 3.5-5.1 [facility] Work Phone: Protein [Mass/Vol] 7.9 g/dL 6.4-8.2 [facility] Work Phone: Sodium [Moles/Vol] 141 mmol/L 136-145 [facility] Work Phone: WBC (Bld) [#/Vol] 11.2 10*3/uL 4.4-11.0 [facility] Work Phone: Blood erythrocytes count (nu mber/volume)on 03-10-2022 RBC (Bld) [#/Vol] 5.72 10*6/uL 4.6-6.2 [facility] Work Phone: Blood hemoglobin measurement (mass/volume)on 03-10-2022 Hemoglobin (Bld) [Mass/Vol] 17.3 g/dL 13.0-16.5 [facility] Work Phone: Blood lymphocytes/100 leukoc yteson 03-10-2022 Lymphocytes/100 WBC (Bld) 17.4 % 19-41 [facility] Work Phone: Blood monocytes/100 leukocyt eson 03-10-2022 Monocytes/100 WBC (Bld) 6.7 % 0-10 [facility] Work Phone: Blood platelet mean volumeon 03-10-2022 Platelet mean volume (Bld) [Entitic vol] 11.3 fL 6.2-12.0 [facility] Work Phone: Determination of erythrocyte mean corpuscular volume (MCV)on 03-10-2022 MCV (RBC) [Entitic vol] 85.3 fL 80-94 [facility] Work Phone: Hematocrit Auto (Bld) [Volum e fraction]on 03-10-2022 Hematocrit (Bld) [Volume fraction] 48.8 % 40-54 [facility] Work Phone: Laboratory - Chemistry and C hemistry - challengeon 03-10-2022 ALP [Catalytic activity/Vol] 62 U/L 45-117 [facility] Work Phone: ALT [Catalytic activity/Vol] 39 U/L 16-61 [facility] Work Phone: [phone] CO2 [Moles/Vol] 26.0 mmol/L 21.0-32.0 [facility] Work Phone: Globulin (S) [Mass/Vol] 4.0 g/dL 2.2-4.2 [facility] Work Phone: [phone] Lipase [Catalytic activity/Vol] 50 U/L 73-393 [facility] Work Phone: [phone] Urea nitrogen/Creatinine [Mass ratio] 15.4 mg/mg 10-20 [facility] Work Phone: Laboratory - Hematology and Cell countson 03-10-2022 Erythrocyte distribution width (RBC) [Entitic vol] 39.0 fL 35.1-43.9 [facility] Work Phone: Erythrocyte distribution width (RBC) [Ratio] 12.7 % 11.6-14.6 [facility] Work Phone: Immature granulocytes/100 WBC (Bld) 0.400 % 0.0-0.9 [facility] Work Phone: Comment on above: IG% - Immature Granu locytes (promyelocytes, myelocytes and metamyelocytes) > 1% indicates that a LEFT SHIFT is Present. MCH (RBC) [Entitic mass] 30.2 pg 27.0-32.0 [facility] Work Phone: Nucleated RBC/100 WBC (Bld) [Ratio] 0 % 0-5 [facility] Work Phone: MCHC Auto (RBC) [Mass/Vol]on 03-10-2022 MCHC (RBC) [Mass/Vol] 35.5 g/dL 32-36 [facility] Work Phone: No Panel Informationon 03-10 Estimated Creatinine Clearance Calc 154.13 ml/min [facility] Work Phone: Estimated GFR (MDRD) Amer 157 mL/min >60 [facility] Work Phone: Comment on above: GFR Calc Estimated GFR (MDRD) Non-Af Amer 129 mL/min >60 [facility] Work Phone: Comment on above: Non- GFR Calc Platelets bldon 03-10-2022 Platelets (Bld) [#/Vol] 289 10*3/uL 150-450 [facility] Work Phone: Serum or plasma albumin valente urement (mass/volume)on 03-10-2022 Albumin [Mass/Vol] 3.9 g/dL 3.2-5.0 [facility] Work Phone: Serum or plasma albumin/glob ulin mass ratioon 03-10-2022 Albumin/Globulin [Mass ratio] 1.0 {ratio} 0.9-2.4 [facility] Work Phone: Serum or plasma calcium valente urement (mass/volume)on 03-10-2022 Calcium [Mass/Vol] 9.4 mg/dL 8.5-10.1 [facility] Work Phone: Serum or plasma creatinine m easurement (mass/volume)on 03-10-2022 Creatinine [Mass/Vol] 0.72 mg/dL 0.70-1.30 [facility] Work Phone: Comment on above: The validity of the calculated GFR & GFRAA in patients over 70 years has not been determined. Clinical correlation is essential. Serum or plasma urea nitroge n measurement (mass/volume)on 03-10-2022 Urea nitrogen [Mass/Vol] 11 mg/dL 7-18 [facility] Work Phone: Thin prep Papanicolaou smear with manual screeningon 03-10-2022 Thin prep Papanicolaou smear with manual screening 20 U/L 15-37 [facility] Work Phone: Thin prep Papanicolaou smear with manual screening 8 -15 [facility] Work Phone: ACETYLCHOLINE REC BINDING AB on 02-20-2022 ACETYLCHOLINE BINDING, QUAL Positive Abnormal Negative [facility] Comment on above: Order Comment: Speci men Type: BLOOD SPECIMEN Ordering Facility: [facility] Address: [address] [place] [address] Result Comment: Anti -acetylcholine receptor binding antibody test is used as an aid in diagnosis of myasthenia gravis. A negative result cannot exclude myasthenia gravis. Clinical correlation is required. Performed By: #### H BA1C #### [facility] CLIA [id number] [address] [place] [address] [place] Acetylcholine receptor binding Ab (S) [Moles/Vol] 0.83 nmol/L High <0.21 [facility] Comment on above: Order Comment: Speci men Type: BLOOD SPECIMEN Ordering Facility: [facility] Address: [address] [place] [address] Performed By: #### H BA1C #### [facility] CLIA [id number] [address] [place] [address] [place] AMINO ACIDS, PLASMA W/ CONSU LTATIONon 02-20-2022 Alanine [Moles/Vol] 383 umol/L Normal 177-583 [facility] Comment on above: Order Comment: Speci men Type: BLOOD SPECIMEN Ordering Facility: [facility] Address: [address] [place] [address] Performed By: #### L ACPYR #### [facility] CLIA [id number] [address] [place] [address] [place] Alloisoleucine [Moles/Vol] <1 Normal 0-2 [facility] Comment on above: Order Comment: Speci men Type: BLOOD SPECIMEN Ordering Facility: [facility] Address: [address] [place] [address] Performed By: #### L ACPYR #### [facility] CLIA [id number] [address] [place] [address] [place] Alpha aminoadipate [Moles/Vol] 1 umol/L Normal 0-6 [facility] Comment on above: Order Comment: Speci men Type: BLOOD SPECIMEN Ordering Facility: [facility] Address: [address] [place] [address] Performed By: #### L ACPYR #### [facility] CLIA [id number] [address] [place] [address] AMINO ACID CONSULTATION, PLASMA Normal [facility] Comment on above: Order Comment: Speci men Type: BLOOD SPECIMEN Ordering Facility: [facility] Address: [address] [place] [address] Result Comment: This plasma amino acid analysis shows a slightly low level of glycine and several additional minor deviations from normal reference intervals. These data are not diagnostic of a specific disorder. An association of low plasma glycine and increased BMI is recognized and may be relevant here. Reference intervals from Ryanne E, Cely MG, Sandoval SEB, and June DK: Biochemical Genetics: A Laboratory Manual, Copyright 1989 by [employer] Reference intervals not established for some amino acids. This test was developed and its performance characteristics determined by [facility] [place] ([facility] [email or web address]). It has not been cleared or approved by the FDA. [facility] is regulated under CLIA as qualified to perform high complexity testing. This test is used for clinical purposes. It should not be regarded as investigational or for research. Performed By: #### L ACPYR #### [facility] CLIA [id number] [address] [place] [address] AMINO ACIDS REVIEW, PLASMA Reviewed by Roberto Carlos Escalona MD, Ph.D ([id number]) [facility] Comment on above: Order Comment: Speci men Type: BLOOD SPECIMEN Ordering Facility: [facility] Address: [address] [place] [address] Performed By: #### L ACPYR #### [facility] CLIA [id number] [address] [place] [address] [place] Arginine [Moles/Vol] 50 umol/L Normal 15-128 [facility] Comment on above: Order Comment: Speci men Type: BLOOD SPECIMEN Ordering Facility: [facility] Address: [address] [place] [address] Performed By: #### L ACPYR #### [facility] CLIA [id number] [address] [place] [address] [place] Asparagine [Moles/Vol] 46 umol/L Normal 35-74 [facility] Comment on above: Order Comment: Speci men Type: BLOOD SPECIMEN Ordering Facility: [facility] Address: [address] [place] [address] Performed By: #### L ACPYR #### [facility] CLIA [id number] [address] [place] [address] [place] Aspartate [Moles/Vol] 4 umol/L Normal 1-25 [facility] Comment on above: Order Comment: Speci men Type: BLOOD SPECIMEN Ordering Facility: [facility] Address: [address] [place] [address] Performed By: #### L ACPYR #### [facility] CLIA [id number] [address] [place] [address] [place] Citrulline [Moles/Vol] 23 umol/L Normal 12-55 [facility] Comment on above: Order Comment: Speci men Type: BLOOD SPECIMEN Ordering Facility: [facility] Address: [address] [place], [place] [id number] Performed By: #### L ACPYR #### [facility] CLIA [id number] [address] [place] [address] [place] Cystine [Moles/Vol] 54 umol/L Normal 5-82 [facility] Comment on above: Order Comment: Speci men Type: BLOOD SPECIMEN Ordering Facility: [facility] Address: [address] [place], [place] [id number] Performed By: #### L ACPYR #### [facility] CLIA [id number] [address] [place] [address] [place] Glutamate [Moles/Vol] 99 umol/L Normal 10-131 [facility] Comment on above: Order Comment: Speci men Type: BLOOD SPECIMEN Ordering Facility: [facility] Address: [address] [place], [place] [id number] Performed By: #### L ACPYR #### [facility] CLIA [id number] [address] [place] [address] [place] Glutamine [Moles/Vol] 470 umol/L Normal 205-756 [facility] Comment on above: Order Comment: Speci men Type: BLOOD SPECIMEN Ordering Facility: [facility] Address: [address] [place], [place] [id number] Performed By: #### L ACPYR #### [facility] CLIA [id number] [address] [place] [address] [place] Glycine [Moles/Vol] 147 umol/L Low 151-490 [facility] Comment on above: Order Comment: Speci men Type: BLOOD SPECIMEN Ordering Facility: [facility] Address: [address] [place], [place] [id number] Performed By: #### L ACPYR #### [facility] CLIA [id number] [address] [place] [address] [place] Histidine [Moles/Vol] 66 umol/L Low 72-124 [facility] Comment on above: Order Comment: Speci men Type: BLOOD SPECIMEN Ordering Facility: [facility] Address: [address] [place], [place] [id number] Performed By: #### L ACPYR #### [facility] CLIA [id number] [address] [place] [address] [place] Hydroxylysine [Moles/Vol] <1 High <=0 [facility] Comment on above: Order Comment: Speci men Type: BLOOD SPECIMEN Ordering Facility: [facility] Address: [address] [place], [place] [id number] Performed By: #### L ACPYR #### [facility] CLIA [id number] [address] [place] [address] [place] Hydroxyproline [Moles/Vol] 6 umol/L Normal 0-53 [facility] Comment on above: Order Comment: Speci men Type: BLOOD SPECIMEN Ordering Facility: [facility] Address: [address] [place], [place] [id number] Performed By: #### L ACPYR #### [facility] CLIA [id number] [address] [place] [address] [place] Isoleucine [Moles/Vol] 63 um/L Normal 30-108 [facility] Comment on above: Order Comment: Speci men Type: BLOOD SPECIMEN Ordering Facility: [facility] Address: [address] [place], [place] [id number] Performed By: #### L ACPYR #### [facility] CLIA [id number] [address] [place] [address] [place] Leucine [Moles/Vol] 112 umol/L Normal 72-201 [facility] Comment on above: Order Comment: Speci men Type: BLOOD SPECIMEN Ordering Facility: [facility] Address: [address] [place] [id number] Performed By: #### L ACPYR #### [facility] CLIA [id number] [address] [place] [address] [place] Lysine [Moles/Vol] 166 umol/L Normal 116-296 [facility] Comment on above: Order Comment: Speci men Type: BLOOD SPECIMEN Ordering Facility: [facility] Address: [address] [place], [place] [id number] Performed By: #### L ACPYR #### [facility] CLIA [id number] [address] [place] [address] [place] Methionine [Moles/Vol] 21 umol/L Normal 10-42 [facility] Comment on above: Order Comment: Speci men Type: BLOOD SPECIMEN Ordering Facility: [facility] Address: [address] [place], [place] [id number] Performed By: #### L ACPYR #### [facility] CLIA [id number] [address] [place] [address] [place] Ornithine [Moles/Vol] 70 umol/L Normal 48-195 [facility] Comment on above: Order Comment: Speci men Type: BLOOD SPECIMEN Ordering Facility: [facility] Address: [address] [place], [place] [id number] Performed By: #### L ACPYR #### [facility] CLIA [id number] [address] [place] [address] [place] Phenylalanine [Moles/Vol] 55 umol/L Normal 35-85 [facility] Comment on above: Order Comment: Speci men Type: BLOOD SPECIMEN Ordering Facility: [facility] Address: [address] [place], [place] [id number] Performed By: #### L ACPYR #### [facility] CLIA [id number] [address] [place] [address] [place] Proline [Moles/Vol] 219 umol/L Normal 97-329 [facility] Comment on above: Order Comment: Speci men Type: BLOOD SPECIMEN Ordering Facility: [facility] Address: [address] [place], [place] [id number] Performed By: #### L ACPYR #### [facility] CLIA [id number] [address] [place] [address] [place] Sarcosine [Moles/Vol] <1 High <=0 [facility] Comment on above: Order Comment: Speci men Type: BLOOD SPECIMEN Ordering Facility: [facility] Address: [address] [place], [place] [id number] Performed By: #### L ACPYR #### [facility] CLIA [id number] [address] [place] [address] [place] Serine [Moles/Vol] 77 umol/L Normal 58-181 [facility] Comment on above: Order Comment: Speci men Type: BLOOD SPECIMEN Ordering Facility: [facility] Address: [address] [place], [place] [id number] Performed By: #### L ACPYR #### [facility] CLIA [id number] [address] [place] [address] [place] Taurine [Moles/Vol] 52 umol/L Low 54-210 [facility] Comment on above: Order Comment: Speci men Type: BLOOD SPECIMEN Ordering Facility: [facility] Address: [address] [place], [place] [id number] Performed By: #### L ACPYR #### [facility] CLIA [id number] [address] [place] [address] [place] Threonine [Moles/Vol] 87 umol/L Normal 60-225 [facility] Comment on above: Order Comment: Speci men Type: BLOOD SPECIMEN Ordering Facility: [facility] Address: [address] [place], [place] [id number] Performed By: #### L ACPYR #### [facility] CLIA [id number] [address] [place] [address] [place] Tyrosine [Moles/Vol] 62 umol/L Normal 34-112 [facility] Comment on above: Order Comment: Speci men Type: BLOOD SPECIMEN Ordering Facility: [facility] Address: [address] [place], [place] [id number] Performed By: #### L ACPYR #### [facility] CLIA [id number] [address] [place] [address] [place] Valine [Moles/Vol] 210 umol/L Normal 119-336 [facility] Comment on above: Order Comment: Chance mohr Type: BLOOD SPECIMEN Ordering Facility: [facility] Address: [address] [place] [address] Performed By: #### L ACPYR #### [facility] CLIA [id number] [address] [place] [address] [place] C-REACTIVE PROTEIN (CRP)on 0 02-20-2022 CRP [Mass/Vol] 0.4 mg/dL <0.9 mg/dL [facility] CARNITINE FREE/TOTAL, PLASMA on 02-20-2022 C0 [Moles/Vol] 29 umol/L Normal 22-54 [facility] Comment on above: Order Comment: Chance mohr Type: BLOOD SPECIMEN Ordering Facility: [facility] Address: [address] [place] [address] Performed By: #### H BA1C #### [facility] CLIA [id number] [address] [place] [address] [place] C0/Total carnitine [Molar fraction] 0.763 Normal 0.700-0.900 [facility] Comment on above: Order Comment: Chance mohr Type: BLOOD SPECIMEN Ordering Facility: [facility] Address: [address] [place] [address] Result Comment: NOTE : The determination of the plasma free carnitine level and of the total free and acylcarnitine levels is dependent on multiple factors, including the nutritional status of the subject, his/her underlying disorder, concurrent illnesses and, sometimes, medications that he/she is receiving. Consequently, a normal or minimally abnormal result with this test does not always rule-out the possibility of a disorder of carnitine or fatty acid metabolism. This test does not by itself provide information on the levels of various plasma acylcarnitine species and measurement of the latter is often needed for the diagnostic evaluation and follow-up of disorders of mitochondrial fatty acid beta-oxidation and some other disorders associated with pathologic levels of selected acylcarnitine species. This test was developed and its performance characteristics determined by the Pathology and Laboratory [facility] [place] at the [facility]. The U.S. Food and Drug Administration has not approved or cleared this test, however, FDA clearance or approval is not currently required for clinical use. Performed By: ###Brooke H BA1C #### [facility] CLIA [id number] [address] [place] [address] [place] Carnitine [Moles/Vol] 38 umol/L Normal 27-68 [facility] Comment on above: Order Comment: Speci men Type: BLOOD SPECIMEN Ordering Facility: [facility] Address: [address] [place] [address] Performed By: ###Brooke H BA1C #### [facility] CLIA [id number] [address] [place] [address] [place] CK CREATINE KINASEon 022 CK [Catalytic activity/Vol] 45 U/L Low 51-298 [facility] Comment on above: Order Comment: Speci men Type: BLOOD SPECIMEN Ordering Facility: [facility] Address: [address] [place] [address] Performed By: ###Brooke Johnson, 1987-01, 3015-11 #### [facility] CLIA [id number] [place] [address] [place] CK [Catalytic activity/Vol] 45 U/L Low 51 - 298 U/L [facility] CRP SerPl-mCncon 02-20-2022 CRP [Mass/Vol] 0.4 mg/dL Normal <0.9 [facility] Comment on above: Order Comment: Speci [facility] Type: BLOOD SPECIMEN Ordering Facility: [facility] Address: [address] [place], [place] [id number] Performed By: ###Brooke Johnson, 1987-01, 3015-11 #### [facility] CLIA [id number] [place] [address] [place] CYTOKINE PANEL 13, SERUMon 0 02-20-2022 INTERFERON GAMMA <4.2 Normal <=4.2 [facility] Comment on above: Order Comment: Speci men Type: BLOOD SPECIMEN Ordering Facility: [facility] Address: [address] [place] [address] Performed By: #### V OLTCA, CYTOKP #### [facility] CLIA [id number] [address] [place] [address] INTERLEUKIN 1 BETA <6.5 Normal <=6.7 [facility] Comment on above: Order Comment: Speci men Type: BLOOD SPECIMEN Ordering Facility: [facility] Address: [address] [place] [address] Performed By: #### V OLTCA, CYTOKP #### [facility] CLIA [id number] [address] [place] [address] INTERLEUKIN 10 5.6 pg/mL High <=2.8 [facility] Comment on above: Order Comment: Speci men Type: BLOOD SPECIMEN Ordering Facility: [facility] Address: [address] [place] [address] Performed By: #### V OLTCA, CYTOKP #### [facility] CLIA [id number] [address] [place] [address] INTERLEUKIN 12 <1.9 Normal <=1.9 [facility] Comment on above: Order Comment: Speci men Type: BLOOD SPECIMEN Ordering Facility: [facility] Address: [address] [place] [address] Performed By: #### V OLTCA, CYTOKP #### [facility] CLIA [id number] [address] [place] [address] INTERLEUKIN 13 <1.7 Normal <=2.3 [facility] Comment on above: Order Comment: Speci men Type: BLOOD SPECIMEN Ordering Facility: [facility] Address: [address] [place] [address] Performed By: #### V OLTCA, CYTOKP #### [facility] CLIA [id number] [address] [place] [address] INTERLEUKIN 17 <1.4 Normal <=1.4 [facility] Comment on above: Order Comment: Speci men Type: BLOOD SPECIMEN Ordering Facility: [facility] Address: [address] [place] [address] Performed By: #### V OLTCA, CYTOKP #### [facility] CLIA [id number] [address] [place] [address] INTERLEUKIN 2 <2.1 Normal <=2.1 [facility] Comment on above: Order Comment: Speci men Type: BLOOD SPECIMEN Ordering Facility: [facility] Address: [address] [place] [address] Performed By: #### V OLTCA, CYTOKP #### [facility] CLIA [id number] [address] [place] [address] INTERLEUKIN 4 (INT4) <2.2 Normal <=2.2 [facility] Comment on above: Order Comment: Speci men Type: BLOOD SPECIMEN Ordering Facility: [facility] Address: [address] [place] [address] Performed By: #### V OLTCA, CYTOKP #### [facility] CLIA [id number] [address] [place] [address] INTERLEUKIN 5 <2.1 Normal <=2.1 [facility] Comment on above: Order Comment: Speci men Type: BLOOD SPECIMEN Ordering Facility: [facility] Address: [address] [place] [address] Performed By: #### V OLTCA, CYTOKP #### [facility] CLIA [id number] [address] [place] [address] INTERLEUKIN 6 <2.0 Normal <=2.0 [facility] Comment on above: Order Comment: Speci men Type: BLOOD SPECIMEN Ordering Facility: [facility] Address: [address] [place] [address] Performed By: #### V OLTCA, CYTOKP #### [facility] CLIA [id number] [address] [place] [address] INTERLEUKIN 8 <3.0 Normal <=3.0 [facility] Comment on above: Order Comment: Speci men Type: BLOOD SPECIMEN Ordering Facility: [facility] Address: [address] [place] [address] Performed By: #### V OLTCA, CYTOKP #### [id number] [address] [place] [address] INTERLEUKIN-2 RECEPTOR 361.1 pg/mL Normal 175.3-858.2 [facility] Comment on above: Order Comment: Speci men Type: BLOOD SPECIMEN Ordering Facility: [facility] Address: [address] [place] [address] Performed By: #### Cameron ISSA CYTOKP #### [facility] [id number] [address] [place] [id number] TUMOR NECROSIS FACTOR - ALPHA <1.7 Normal <=7.2 [facility] Comment on above: Order Comment: Speci men Type: BLOOD SPECIMEN Ordering Facility: [facility] Address: [address] [place] [address] Result Comment: INTE RPRETIVE INFORMATION: Cytokines Results are used to understand the pathophysiology of immune, infectious, or inflammatory disorders, or may be used for research purposes. This test was developed and its performance characteristics determined by [facility]. It has not been cleared or approved by the US Food and Drug Administration. This test was performed in a CLIA certified laboratory and is intended for clinical purposes. Performed By: [facility] [address] [place] [address] Bag Printer: Anusha Rogel MD Performed By: #### TYREE GRIFFINP #### [facility] [id number] [address] [place] [address] ESR Westergren method (Bld) [Velocity]on 02-20-2022 ESR (Bld) [Velocity] 2 mm/h Normal 0-15 [facility] Comment on above: Order Comment: Speci men Type: BLOOD SPECIMEN Ordering Facility: [facility] Address: [address] [place] [address] Performed By: #### 4 537-7 #### [facility] CLIA [id number] [address] [place] [address] [place] [address] [place] GAD65 Ab Ser-aCncon 02-21-20 Glutamate decarboxylase 65 Ab Qn (S) <5.0 Normal <=5.0 [facility] Comment on above: Order Comment: Chance mohr Type: BLOOD SPECIMEN Ordering Facility: [facility] Address: [address] [place] [address] Result Comment: Anti -glutamic acid decarboxylase antibody (GAD65) test usually in conjunction with another test such as IA-2 antibody is used as an aid in establishing the autoimmune nature of previously-diagnosed type I diabetes mellitus or in predicting of progression to type I diabetes mellitus in patients with certain autoimmune diseases including autoimmune gastritis among others. It is also used as an aid in diagnosis of stiff person syndrome and certain autoimmune nervous system diseases. Clinical correlation is required. Performed By: #### H BA1C #### [facility] CLIA [id number] [address] [place] [address] [place] Glutamate decarboxylase 65 A b Qn (S)on 02-20-2022 GLUTAMIC ACID DECARBOXYLAS AB QUALITATIVE Negative Normal Negative [facility] Comment on above: Order Comment: Chance mohr Type: BLOOD SPECIMEN Ordering Facility: [facility] Address: [address] [place] [address] Performed By: #### H BA1C #### [facility] CLIA [id number] [address] [place] [address] [place] HEMOGLOBIN A1C (FOR REMOTE [facility] USE)on 02-20-2022 Average glucose Estimated from glycated hemoglobin (Bld) [Mass/Vol] 174 mg/dL Normal [facility] Comment on above: Order Comment: Chance mohr Type: BLOOD SPECIMEN Ordering Facility: [facility] Address: [address] [place] [address] Result Comment: eAG: (Estimated average glucose) is a calculated value from HgbA1c and is risk control field representative of the average blood glucose level in the last 2-3 month period. Performed By: #### H BA1C #### [facility] CLIA [id number] [address] [place] [address] [place] HbA1c (Bld) [Mass fraction] 7.7 % High 4.3-5.6 [facility] Comment on above: Order Comment: Chance mohr Type: BLOOD SPECIMEN Ordering Facility: [facility] Address: [address] [place] [address] Result Comment: [place] Diabetes Association guidelines indicate that patients with HgbA1c in the range 5.7-6.4% are at increased risk for development of diabetes, and intervention by lifestyle modification may be beneficial. HgbA1c greater or equal to 6.5% is considered diagnostic of diabetes. Performed By: #### H BA1C #### [facility] CLIA [id number] [address] [place] [address] OF [place] HGB A1Con 02-20-2022 Average glucose Estimated from glycated hemoglobin (Bld) [Mass/Vol] 171 mg/dL Normal [facility] Comment on above: Order Comment: Speci men Type: BLOOD SPECIMEN Ordering Facility: [facility] Address: [address] [place] [address] Result Comment: eAG: (Estimated average glucose) is a calculated value from HgbA1c and is risk control field representative of the average blood glucose level in the last 2-3 month period. Performed By: #### H BA1C #### [facility] CLIA [id number] [address] [place] [address] [place] HbA1c (Bld) [Mass fraction] 7.6 % High 4.3-5.6 [facility] Comment on above: Order Comment: Chance mohr Type: BLOOD SPECIMEN Ordering Facility: [facility] Address: [address] [place] [address] Result Comment: [place] Diabetes Association guidelines indicate that patients with HgbA1c in the range 5.7-6.4% are at increased risk for development of diabetes, and intervention by lifestyle modification may be beneficial. HgbA1c greater or equal to 6.5% is considered diagnostic of diabetes. Performed By: #### H BA1C #### [facility] CLIA [id number] [address] [place] [address] [place] IGA BLDon 02-20-2022 IgA [Mass/Vol] 277 mg/dL Normal 70-400 [facility] Comment on above: Order Comment: Speci men Type: BLOOD SPECIMEN Ordering Facility: [facility] Address: [address] [place] [address] Performed By: #### H BA1C #### [facility] CLIA [id number] [address] [place] [address] [place] IGMon 02-20-2022 IgM [Mass/Vol] 69 mg/dL Normal 40-230 [facility] Comment on above: Order Comment: Speci men Type: BLOOD SPECIMEN Ordering Facility: [facility] Address: [address] [place] [address] Performed By: #### H BA1C #### [facility] IA [id number] [address] [place] [address] [place] IgG SerPl-mCncon 02-20-2022 IgG [Mass/Vol] 1241 mg/dL Normal 700-1,600 [facility] Comment on above: Order Comment: Speci men Type: BLOOD SPECIMEN Ordering Facility: [facility] Address: [address] [place] [address] Performed By: #### H BA1C #### [facility] IA [id number] [address] [place] [address] [place] LDH SerPl-cCncon 02-20-2022 LDH [Catalytic activity/Vol] 197 U/L Normal 135-225 [facility] Comment on above: Order Comment: Speci men Type: BLOOD SPECIMEN Ordering Facility: [facility] Address: [address] [place] [address] Performed By: #### 2 532-0, FT4 #### [facility] IA [id number] [address] [place] [address] [place] ORGANIC ACIDS UR, QUANT W/CO NSULTon 02-20-2022 2-Hydroxyglutarate/Crea tinine (U) [Molar ratio] Normal [facility] Comment on above: Order Comment: Speci men Type: BLOOD SPECIMEN Ordering Facility: [facility] Address: [address] [address] Result Comment: Refe r to Supplemental Report for urine organic acids interpretation and quantitated results with performing laboratory's reference ranges. Performed at [place], [place]. View results in Scanned Documents link when available. Performed By: #### H BA1C #### [facility] CLIA [id number] [address] [place] [address] [place] 2-Hydroxyisovalerate/Cr eatinine (U) [Molar ratio] Normal [facility] Comment on above: Order Comment: Speci men Type: BLOOD SPECIMEN Ordering Facility: [facility] Address: [address] [place] [address] Result Comment: Refe r to Supplemental Report for urine organic acids interpretation and quantitated results with performing laboratory's reference ranges. Performed at [place], [place]. View results in Scanned Documents link when available. Performed By: #### H BA1C #### [facility] CLIA [id number] [address] [place] [address] [place] 2-Qlzcco-0-hydroxybutyr ate (C5-OH)/Creatinine (U) [Molar ratio] Normal [facility] Comment on above: Order Comment: Speci men Type: BLOOD SPECIMEN Ordering Facility: [facility] Address: [address] [place] [address] Result Comment: Refe r to Supplemental Report for urine organic acids interpretation and quantitated results with performing laboratory's reference ranges. Performed at [place], [place]. View results in Scanned Documents link when available. Performed By: #### H BA1C #### [facility] CLIA [id number] [address] [place] [address] [place] 2-Methylbutyrylglycine/ Creatinine (U) [Molar ratio] [facility] Comment on above: Order Comment: Speci men Type: BLOOD SPECIMEN Ordering Facility: [facility] Address: [address] [place] [address] Result Comment: Refe r to Supplemental Report for urine organic acids interpretation and quantitated results with performing laboratory's reference ranges. Performed at [place]. View results in Scanned Documents link when available. Performed By: #### H BA1C #### [facility] CLIA [id number] [address] [place] [address] [place] 2-Methylcitrate/Creatin ine (U) [Molar ratio] Normal [facility] Comment on above: Order Comment: Speci men Type: BLOOD SPECIMEN Ordering Facility: [facility] Address: [address] [place] [address] Result Comment: Refe r to Supplemental Report for urine organic acids interpretation and quantitated results with performing laboratory's reference ranges. Performed at [place]. View results in Scanned Documents link when available. Performed By: #### H BA1C #### [facility] CLIA [id number] [address] [place] [address] [place] 2-Oxoadipate/Creatinine (U) [Molar ratio] Normal [facility] Comment on above: Order Comment: Speci men Type: BLOOD SPECIMEN Ordering Facility: [facility] Address: [address] [place] [address] Result Comment: Refe r to Supplemental Report for urine organic acids interpretation and quantitated results with performing laboratory's reference ranges. Performed at [place]. View results in Scanned Documents link when available. Performed By: #### H BA1C #### [facility] CLIA [id number] [address] [place] [address] [place] 3-Hydroxyglutarate/Crea tinine (U) [Molar ratio] Normal [facility] Comment on above: Order Comment: Speci men Type: BLOOD SPECIMEN Ordering Facility: [facility] Address: [address] [place] [address] Result Comment: Refe r to Supplemental Report for urine organic acids interpretation and quantitated results with performing laboratory's reference ranges. Performed at [place]. View results in Scanned Documents link when available. Performed By: #### H BA1C #### [facility] CLIA [id number] [address] [place] [address] [place] 3-Hydroxyisovalerate/Cr eatinine (U) [Molar ratio] Normal [facility] Comment on above: Order Comment: Speci men Type: BLOOD SPECIMEN Ordering Facility: [facility] Address: [address] [place] [address] Result Comment: Refe r to Supplemental Report for urine organic acids interpretation and quantitated results with performing laboratory's reference ranges. Performed at [place]. View results in Scanned Documents link when available. Performed By: #### H BA1C #### [facility] CLIA [id number] [address] [place] [address] [place] 3-Methylcrotonylglycine /Creatinine (U) [Molar ratio] Normal [facility] Comment on above: Order Comment: Speci men Type: BLOOD SPECIMEN Ordering Facility: [facility] Address: [address] [place] [address] Result Comment: Refe r to Supplemental Report for urine organic acids interpretation and quantitated results with performing laboratory's reference ranges. Performed at [place]. View results in Scanned Documents link when available. Performed By: #### H BA1C #### [facility] CLIA [id number] [address] [place] [address] [place] 3-Methylglutaconate/Cre atinine (U) [Molar ratio] Normal [facility] Comment on above: Order Comment: Speci men Type: BLOOD SPECIMEN Ordering Facility: [facility] Address: [address] [place] [address] Result Comment: Refe r to Supplemental Report for urine organic acids interpretation and quantitated results with performing laboratory's reference ranges. Performed at [facility] [place] View results in Scanned Documents link when available. Performed By: #### H BA1C #### [facility] CLIA [id number] [address] [place] [address] [place] 3-Methylglutarate/Creat inine (U) [Molar ratio] Normal [facility] Comment on above: Order Comment: Speci fani Type: BLOOD SPECIMEN Ordering Facility: [facility] Address: [address] [place] [address] Result Comment: Refe r to Supplemental Report for urine organic acids interpretation and quantitated results with performing laboratory's reference ranges. Performed at [place]. View results in Scanned Documents link when available. Performed By: #### H BA1C #### [facility] CLIA [id number] [address] [place] [address] [place] 4-Hydroxyphenylacetate/ Creatinine (U) [Molar ratio] [facility] Comment on above: Order Comment: [place] mohr Type: BLOOD SPECIMEN Ordering Facility: [facility] Address: [address] [place] [address] Result Comment: Refe r to Supplemental Report for urine organic acids interpretation and quantitated results with performing laboratory's reference ranges. Performed at [place]. View results in Scanned Documents link when available. Performed By: #### H BA1C #### [facility] CLIA [id number] [address] [place] [address] [place] 4-Hydroxyphenyllactate/ Creatinine (U) [Molar ratio] Normal [facility] Comment on above: Order Comment: Specsamia mohr Type: BLOOD SPECIMEN Ordering Facility: [facility] Address: [address] [place] [address] Result Comment: Refe r to Supplemental Report for urine organic acids interpretation and quantitated results with performing laboratory's reference ranges. Performed at [facility] [place], [place]. View results in Scanned Documents link when available. Performed By: #### H BA1C #### [facility] CLIA [id number] [address] [place] [address] [place] 4-Hydroxyphenylpyruvate /Creatinine (U) [Molar ratio] Normal [facility] Comment on above: Order Comment: Speci men Type: BLOOD SPECIMEN Ordering Facility: [facility] Address: [address] [place] [address] Result Comment: Refe r to Supplemental Report for urine organic acids interpretation and quantitated results with performing laboratory's reference ranges. Performed at [place]. View results in Scanned Documents link when available. Performed By: #### H BA1C #### [facility] CLIA [id number] [address] [place] [address] [place] 5-Oxoproline/Creatinine (U) [Molar ratio] Normal [facility] Comment on above: Order Comment: Speci men Type: BLOOD SPECIMEN Ordering Facility: [facility] Address: [address] [place] [address] Result Comment: Refe r to Supplemental Report for urine organic acids interpretation and quantitated results with performing laboratory's reference ranges. Performed at [place]. View results in Scanned Documents link when available. Performed By: #### H BA1C #### [facility] CLIA [id number] [address] [place] [address] [place] Acetoacetate/Creatinine (U) [Molar ratio] Normal [facility] Comment on above: Order Comment: Speci men Type: BLOOD SPECIMEN Ordering Facility: [facility] Address: [address] [place] [address] Result Comment: Refe r to Supplemental Report for urine organic acids interpretation and quantitated results with performing laboratory's reference ranges. Performed at [place]. View results in Scanned Documents link when available. Performed By: #### H BA1C #### [facility] CLIA [id number] [address] [place] [address] [place] Aconitate/Creatinine (U) [Molar ratio] Normal [facility] Comment on above: Order Comment: Speci men Type: BLOOD SPECIMEN Ordering Facility: [facility] Address: [address] [place] [address] Result Comment: Refe r to Supplemental Report for urine organic acids interpretation and quantitated results with performing laboratory's reference ranges. Performed at [place]. View results in Scanned Documents link when available. Performed By: #### H BA1C #### [facility] CLIA [id number] [address] [place] [address] [place] Adipate/Creatinine (U) [Molar ratio] Normal [facility] Comment on above: Order Comment: Speci men Type: BLOOD SPECIMEN Ordering Facility: [facility] Address: [address] [place] [address] Result Comment: Refe r to Supplemental Report for urine organic acids interpretation and quantitated results with performing laboratory's reference ranges. Performed at [place]. View results in Scanned Documents link when available. Performed By: #### H BA1C #### [facility] CLIA [id number] [address] [place] [address] [place] Alpha hydroxybutyrate/Creatin ine (U) [Molar ratio] Normal [facility] Comment on above: Order Comment: Speci men Type: BLOOD SPECIMEN Ordering Facility: [facility] Address: [address] [place] [address] Result Comment: Refe r to Supplemental Report for urine organic acids interpretation and quantitated results with performing laboratory's reference ranges. Performed at [place]. View results in Scanned Documents link when available. Performed By: #### H BA1C #### [facility] CLIA [id number] [address] [place] [address] [place] Alpha ketoglutarate/Creatinin e (U) [Molar ratio] Normal [facility] Comment on above: Order Comment: Speci men Type: BLOOD SPECIMEN Ordering Facility: [facility] Address: [address] [place] [address] Result Comment: Refe r to Supplemental Report for urine organic acids interpretation and quantitated results with performing laboratory's reference ranges. Performed at [place]. View results in Scanned Documents link when available. Performed By: #### H BA1C #### [facility] CLIA [id number] [address] [place] [address] [place] Benzoate/Creatinine (U) [Molar ratio] Normal [facility] Comment on above: Order Comment: Speci men Type: BLOOD SPECIMEN Ordering Facility: [facility] Address: [address] [place] [address] Result Comment: Refe r to Supplemental Report for urine organic acids interpretation and quantitated results with performing laboratory's reference ranges. Performed at [place]. View results in Scanned Documents link when available. Performed By: #### H BA1C #### [facility] CLIA [id number] [address] [place] [address] [place] Beta hydroxybutyrate/Creatin ine (U) [Molar ratio] Normal [facility] Comment on above: Order Comment: Speci men Type: BLOOD SPECIMEN Ordering Facility: [facility] Address: [address] [place] [address] Result Comment: Refe r to Supplemental Report for urine organic acids interpretation and quantitated results with performing laboratory's reference ranges. Performed at [facility] [place]. View results in Scanned Documents link when available. Performed By: #### H BA1C #### [facility] CLIA [id number] [address] [place] [address] [place] Butyrylglycine/Creatini ne (U) [Molar ratio] Normal [facility] Comment on above: Order Comment: Speci men Type: BLOOD SPECIMEN Ordering Facility: [facility] Address: [address] [place] [address] Result Comment: Refe r to Supplemental Report for urine organic acids interpretation and quantitated results with performing laboratory's reference ranges. [place]formed [place] View results in Scanned Documents link when available. Performed By: #### H BA1C #### [facility] CLIA [id number] [address] [place] [address] [place] Creatinine (U) [Mass/Vol] 77.3 mg/dL Normal 46.8-314.5 [facility] Comment on above: Order Comment: Speci men Type: BLOOD SPECIMEN Ordering Facility: [facility] Address: [address] [place] [address] Result Comment: Refe r to Supplemental Report for urine organic acids interpretation and quantitated results with performing laboratory's reference ranges. Performed at [place]. View results in Scanned Documents link when available. Performed By: #### H BA1C #### [facility] CLIA [id number] [address] [place] [address] [place] Ethylmalonate/Creatinin e (U) [Molar ratio] Normal [facility] Comment on above: Order Comment: Speci men Type: BLOOD SPECIMEN Ordering Facility: [facility] Address: [address] [place] [address] Result Comment: Refe r to Supplemental Report for urine organic acids interpretation and quantitated results with performing laboratory's reference ranges. Performed at [place]. View results in Scanned Documents link when available. Performed By: #### H BA1C #### [facility] CLIA [id number] [address] [place] [address] [place] Fumarate/Creatinine (U) [Molar ratio] Normal [facility] Comment on above: Order Comment: Speci men Type: BLOOD SPECIMEN Ordering Facility: [facility] Address: [address] [place] [address] Result Comment: Refe r to Supplemental Report for urine organic acids interpretation and quantitated results with performing laboratory's reference ranges. Performed at [place]. View results in Scanned Documents link when available. Performed By: #### H BA1C #### [facility] CLIA [id number] [address] [place] [address] [place] Glutarate/Creatinine (U) [Molar ratio] Normal [facility] Comment on above: Order Comment: Speci men Type: BLOOD SPECIMEN Ordering Facility: [facility] Address: [address] [place] [address] Result Comment: Refe r to Supplemental Report for urine organic acids interpretation and quantitated results with performing laboratory's reference ranges. Performed at [place]. View results in Scanned Documents link when available. Performed By: #### H BA1C #### [facility] CLIA [id number] [address] [place] [address] [place] Hexanoylglycine/Creatin ine (U) [Molar ratio] Normal [facility] Comment on above: Order Comment: Speci men Type: BLOOD SPECIMEN Ordering Facility: [facility] Address: [address] [place] [address] Result Comment: Refe r to Supplemental Report for urine organic acids interpretation and quantitated results with performing laboratory's reference ranges. Performed at [place]. View results in Scanned Documents link when available. Performed By: #### H BA1C #### [facility] CLIA [id number] [address] [place] [address] [place] Isobutyrylglycine/Creat inine (U) [Molar ratio] Normal [facility] Comment on above: Order Comment: Speci men Type: BLOOD SPECIMEN Ordering Facility: [facility] Address: [address] [place] [address] Result Comment: Refe r to Supplemental Report for urine organic acids interpretation and quantitated results with performing laboratory's reference ranges. Performed at [place]. View results in Scanned Documents link when available. Performed By: #### H BA1C #### [facility] CLIA [id number] [address] [place] [address] [place] Isocitrate/Creatinine (U) [Molar ratio] Normal [facility] Comment on above: Order Comment: Speci men Type: BLOOD SPECIMEN Ordering Facility: [facility] Address: [address] [place] [address] Result Comment: Refe r to Supplemental Report for urine organic acids interpretation and quantitated results with performing laboratory's reference ranges. Performed at [place]. View results in Scanned Documents link when available. Performed By: #### H BA1C #### [facility] CLIA [id number] [address] [place] [address] [place] Lactate/Creatinine (U) [Molar ratio] Normal [facility] Comment on above: Order Comment: Speci men Type: BLOOD SPECIMEN Ordering Facility: [facility] Address: [address] [place] [address] Result Comment: Refe r to Supplemental Report for urine organic acids interpretation and quantitated results with performing laboratory's reference ranges. Performed at [place]. View results in Scanned Documents link when available. Performed By: #### H BA1C #### [facility] CLIA [id number] [address] [place] [address] [place] Malate/Creatinine (U) [Molar ratio] Normal [facility] Comment on above: Order Comment: Speci men Type: BLOOD SPECIMEN Ordering Facility: [facility] Address: [address] [place] [address] Result Comment: Refe r to Supplemental Report for urine organic acids interpretation and quantitated results with performing laboratory's reference ranges. Performed at [place]. View results in Scanned Documents link when available. Performed By: #### H BA1C #### [facility] CLIA [id number] [address] [place] [address] [place] Malonate/Creatinine (U) [Molar ratio] Normal [facility] Comment on above: Order Comment: Speci men Type: BLOOD SPECIMEN Ordering Facility: [facility] Address: [address] [place] [address] Result Comment: Refe r to Supplemental Report for urine organic acids interpretation and quantitated results with performing laboratory's reference ranges. Performed at [place]. View results in Scanned Documents link when available. Performed By: #### H BA1C #### [facility] CLIA [id number] [address] [place] [address] [place] Methylmalonate/Creatini ne (U) [Molar ratio] Normal [facility] Comment on above: Order Comment: Speci men Type: BLOOD SPECIMEN Ordering Facility: [facility] Address: [address] [place] [address] Result Comment: Refe r to Supplemental Report for urine organic acids interpretation and quantitated results with performing laboratory's reference ranges. Performed at [place]. View results in Scanned Documents link when available. Performed By: #### H BA1C #### [facility] CLIA [id number] [address] [place] [address] [place] Methylsuccinate/Creatin ine (U) [Molar ratio] Normal [facility] Comment on above: Order Comment: Speci men Type: BLOOD SPECIMEN Ordering Facility: [facility] Address: [address] [place] [address] Result Comment: Refe r to Supplemental Report for urine organic acids interpretation and quantitated results with performing laboratory's reference ranges. Performed at [place]. View results in Scanned Documents link when available. Performed By: #### H BA1C #### [facility] CLIA [id number] [address] [place] [address] [place] N-acetylaspartate/Creat inine (U) [Molar ratio] Normal [facility] Comment on above: Order Comment: Speci men Type: BLOOD SPECIMEN Ordering Facility: [facility] Address: [address] [place] [address] Result Comment: Refe r to Supplemental Report for urine organic acids interpretation and quantitated results with performing laboratory's reference ranges. [facility] [place] [facility] [place] View results in Scanned Documents link when available. Performed By: #### H BA1C #### [facility] CLIA [id number] [address] [place] [address] [place] N-acetyltyrosine/Creati nine (U) [Molar ratio] Normal [facility] Comment on above: Order Comment: Speci men Type: BLOOD SPECIMEN Ordering Facility: [facility] Address: [address] [place] [address] Result Comment: Refe r to Supplemental Report for urine organic acids interpretation and quantitated results with performing laboratory's reference ranges. Performed at [place], [place]. View results in Scanned Documents link when available. Performed By: #### H BA1C #### [facility] CLIA [id number] [address] [place] [address] [place] Oxalate/Creatinine (U) [Molar ratio] Normal [facility] Comment on above: Order Comment: Speci men Type: BLOOD SPECIMEN Ordering Facility: [facility] Address: [address] [place] [address] Result Comment: Refe r to Supplemental Report for urine organic acids interpretation and quantitated results with performing laboratory's reference ranges. Performed at [place], [place]. View results in Scanned Documents link when available. Performed By: #### H BA1C #### [facility] CLIA [id number] [address] [place] [address] [place] Pyruvate/Creatinine (U) [Molar ratio] Normal [facility] Comment on above: Order Comment: Speci men Type: BLOOD SPECIMEN Ordering Facility: [facility] Address: [address] [place] [address] Result Comment: Refe r to Supplemental Report for urine organic acids interpretation and quantitated results with performing laboratory's reference ranges. Performed at [place], [place]. View results in Scanned Documents link when available. Performed By: #### H BA1C #### [facility] CLIA [id number] [address] [place] [address] [place] Sebacate (C8)/Creatinine (U) [Molar ratio] Normal [facility] Comment on above: Order Comment: Speci men Type: BLOOD SPECIMEN Ordering Facility: [facility] Address: [address] [place] [address] Result Comment: Refe r to Supplemental Report for urine organic acids interpretation and quantitated results with performing laboratory's reference ranges. Performed at [place], [place]. View results in Scanned Documents link when available. Performed By: #### H BA1C #### [facility] CLIA [id number] [address] [place] [address] [place] Suberate/Creatinine (U) [Molar ratio] Normal [facility] Comment on above: Order Comment: Speci men Type: BLOOD SPECIMEN Ordering Facility: [facility] Address: [address] [place] [address] Result Comment: Refe r to Supplemental Report for urine organic acids interpretation and quantitated results with performing laboratory's reference ranges. Performed at [place], [place]. View results in Scanned Documents link when available. Performed By: #### H BA1C #### [facility] CLIA [id number] [address] [place] [address] [place] Suberylglycine/Creatini ne (U) [Molar ratio] Normal [facility] Comment on above: Order Comment: Speci men Type: BLOOD SPECIMEN Ordering Facility: [facility] Address: [address] [place] [address] Result Comment: Refe r to Supplemental Report for urine organic acids interpretation and quantitated results with performing laboratory's reference ranges. Performed at [place], [place]. View results in Scanned Documents link when available. Performed By: #### H BA1C #### [facility] CLIA [id number] [address] [place] [address] [place] Succinate/Creatinine (U) [Molar ratio] Normal [facility] Comment on above: Order Comment: Speci men Type: BLOOD SPECIMEN Ordering Facility: [facility] Address: [address] [place] [address] Result Comment: Refe r to Supplemental Report for urine organic acids interpretation and quantitated results with performing laboratory's reference ranges. Performed at [place], [place]. View results in Scanned Documents link when available. Performed By: #### H BA1C #### [facility] CLIA [id number] [address] [place] [address] [place] Succinylacetone/Creatin ine (U) [Molar ratio] Normal [facility] Comment on above: Order Comment: Speci men Type: BLOOD SPECIMEN Ordering Facility: [facility] Address: [address] [place] [address] Result Comment: Refe r to Supplemental Report for urine organic acids interpretation and quantitated results with performing laboratory's reference ranges. Performed at [place], [place]. View results in Scanned Documents link when available. Performed By: #### H BA1C #### [facility] CLIA [id number] [address] [place] [address] [place] UOA CONSULTATION [facility] Comment on above: Order Comment: Speci men Type: BLOOD SPECIMEN Ordering Facility: [facility] Address: [address] [place] [address] Result Comment: Refe r to Supplemental Report for urine organic acids interpretation and quantitated results with performing laboratory's reference ranges. Performed at [facility] [place], [place]. View results in Scanned Documents link when available. Performed By: #### H BA1C #### [facility] CLIA [id number] [address] [place] [address] [place] UOA REVIEW [facility] Comment on above: Order Comment: Speci men Type: BLOOD SPECIMEN Ordering Facility: [facility] Address: [address] [place], [place] [id number] Result Comment: Refe r to Supplemental Report for urine organic acids interpretation and quantitated results with performing laboratory's reference ranges. Performed at [facility] [place], [place]. View results in Scanned Documents link when available. Performed By: #### H BA1C #### [facility] CLIA [id number] [address] [place] [address] [place] Uracil/Creatinine (U) [Molar ratio] [facility] Comment on above: Order Comment: Speci men Type: BLOOD SPECIMEN Ordering Facility: [facility] Address: [address] [place], [place] [address] Result Comment: Refe r to Supplemental Report for urine organic acids interpretation and quantitated results with performing laboratory's reference ranges. Performed at [facility], [place], [place]. View results in Scanned Documents link when available. Performed By: #### H BA1C #### [facility] CLIA [id number] [facility] [place] [address] [place] PLASMA THYMIDINE DETERMINATI ONon 02-20-2022 PLASMA THYMIDINE DETERMINATION View results in Scanned Documents link when available. Normal [facility] Comment on above: Order Comment: Speci men Type: BLOOD SPECIMEN Ordering Facility: [facility] Address: [address] [place] [address] Performed By: #### P LTHY #### [facility] CLIA [id number] [address] [facility], [facility] [address] [place] [address] PYRUVATE+LACTATE BLon 2021 Lactate [Moles/Vol] 1.5 mmol/L Normal 0.5-2.2 [facility] Comment on above: Order Comment: Speci men Type: BLOOD SPECIMEN Ordering Facility: [facility] Address: [address] [place] [address] Result Comment: This test was developed and its performance characteristics determined by [facility] [place] ([facility] [email or web address]). It has not been cleared or approved by the FDA. -[facility] is regulated under CLIA as qualified to perform high-complexity testing. This test is used for clinical purposes. It should not be regarded as investigational or for research. Performed By: #### L ACPYR #### [facility] CLIA [id number] [address] [place], [place] [address] [place] [address] [place] Pyruvate (Bld) [Moles/Vol] <0.02 Low 0.03-0.10 [facility] Comment on above: Order Comment: Speci men Type: BLOOD SPECIMEN Ordering Facility: [facility] Address: [address] [place] [address] Result Comment: This test was developed and its performance characteristics determined by [facility]'s [facility] Pathology and Laboratory [facility] [place] ([facility]). It has not been cleared or approved by the FDA. [facility] is regulated under CLIA as qualified to perform high-complexity testing. This test is used for clinical purposes. It should not be regarded as investigational or for research. Performed By: #### L ACPYR #### [facility] CLIA [id number] [address] [place] [address] [place] T4 FREE/FREE THYROXon 2021 Free T4 [Mass/Vol] 1.2 ng/dL Normal 0.9-1.7 [facility] Comment on above: Order Comment: Speci men Type: BLOOD SPECIMEN Ordering Facility: [facility] Address: [address] [place] [address] Performed By: #### 2 532-0, FT4 #### [facility] CLIA [id number] [address] [place] [address] [place] TSH BLDon 02-20-2022 TSH Qn 1.230 m[IU]/L 0.270 - 4.200 mIU/L [facility] TSH SerPl-aCncon 02-20-2022 TSH Qn 1.230 m[IU]/L Normal 0.270-4.200 [facility] Comment on above: Order Comment: Speci men Type: BLOOD SPECIMEN Ordering Facility: [facility] Address: [address] [place] [address] Performed By: #### C K, 1988-5, 3016-3 #### [facility] CLIA [id number] [place] [address] [place] VOLTAGE GATED CA IGGon 02-20 P/Q-TYPE CALCIUM CHANNEL ANTIBODY 6.6 pmol/L Normal 0.0-24.5 [facility] Comment on above: Order Comment: Speci men Type: BLOOD SPECIMEN Ordering Facility: [facility] Address: [address] [place], [place] [id number] Result Comment: INTE RPRETIVE INFORMATION: P/Q-Type Calcium Channel Antibody 0.0 to 24.5 pmol/L ............. Negative 24.6 to 45.6 pmol/L ............ Indeterminate 45.7 pmol/L or greater.......... Positive This test was developed and its performance characteristics determined by [facility]. It has not been cleared or approved by the [place] Food and Drug Administration. This test was performed in a CLIA certified laboratory and is intended for clinical purposes. Performed By: [facility] [address] [place] [id number] Bag Printer: Anusha Rogel MD Performed By: #### H BA1C #### [facility] CLIA [id number] [address] [place] [address] STATES [place] [facility] VOLTAGE-GATED POTASSIUM LIPSCOMB ABon 02-20-2022 VOLTAGE-GATED POTASSIUM CHANNEL AB, SER 11 pmol/L Normal 0-31 [facility] Comment on above: Order Comment: Speci men Type: BLOOD SPECIMEN Ordering Facility: [facility] Address: [address] [place] [address] Result Comment: INTE RPRETIVE INFORMATION: Voltage-Gated Potassium Channel (VGKC) Antibody, Serum Negative ....... 31 pmol/L or less Indeterminate... 32 - 87 pmol/L Positive ....... 88 pmol/L or greater Voltage-Gated Potassium Channel (VGKC) antibodies are associated with neuromuscular weakness as found in neuromyotonia (also known as Issacs syndrome) and Morvan syndrome. VGKC antibodies are also associated with paraneoplastic neurological syndromes and limbic encephalitis; however, VGKC antibody-associated limbic encephalitis may be associated with antibodies to leucine-rich, glioma-inactivated 1 protein (LGI1) or contactin-associated protein-2 (CASPR2) instead of potassium channel antigens. A substantial number of VGKC-antibody positive cases are negative for LGI1 and CASPR2 IgG autoantibodies, not all VGKC complex antigens are known. The clinical significance of this test can only be determined in conjunction with the patient's clinical history and related laboratory testing. This test was developed and its performance characteristics determined by [facility]. It has not been cleared or approved by the [place] Food and Drug Administration. This test was performed in a CLIA certified laboratory and is intended for clinical purposes. Performed By: [facility] [address] [place] [id number] Bag Printer: Anusha Rogel MD Performed By: #### H BA1C #### [facility] CLIA [id number] [address] [place] [address] [place] Vital Signs Date Time Vital Sign Value Performing Clinician Facility 12-16-2024 09:33-0400 Body height 185.[address] Dale Coffey MD Work Phone: [phone] [place] [address] 12-16-2024 09:33-0400 Body mass index (BMI) [Ratio] 30.1 kg/m2 Dr. Dale Coffey MD Work Phone: 5([phone] [place] [address] 12-16-2024 09:33-0400 Body weight 103.[address] Dale Coffey MD Work Phone: 2([phone] [place] [address] 12-16-2024 09:33-0400 Diastolic blood pressure 86 mm[Hg] Dr. Dale Coffey MD Work Phone: 3([phone])[phone] [place] [address] 12-16-2024 09:33-0400 Respiratory rate 16 /min Dr. Dale Coffey MD Work Phone: [phone])[phone] [place] [address] 12-16-2024 09:33-0400 SaO2% (BldA) [Mass fraction] 96 % Dr. Dale Coffey MD Work Phone: 3([phone])[phone] [place] [address] 12-16-2024 09:33-0400 Systolic blood pressure 122 mm[Hg] Dr. Dale Coffey MD Work Phone: 7([phone])[phone] [place] [address] 12-08-2024 14:44-0400 Body mass index (BMI) [Ratio] 30 kg/m2 Dr. Dale Coffey MD Work Phone: 4([phone] [place] [address] 12-08-2024 14:44-0400 Body weight 103.[address] Dale Coffey MD Work Phone: [phone] [place] [address] 12-08-2024 14:44-0400 Diastolic blood pressure 93 mm[Hg] Dr. Dale Coffey MD Work Phone: [facility] 12-08-2024 14:44-0400 Heart rate 99 /min Dr. Dale Coffey MD Work Phone: [facility] 12-08-2024 14:44-0400 Respiratory rate 17 /min Dr. Dale Coffey MD Work Phone: [facility] 12-08-2024 14:44-0400 SaO2% (BldA) [Mass fraction] 100 % Dr. Dale Coffey MD Work Phone: [facility] 12-08-2024 14:44-0400 Systolic blood pressure 140 mm[Hg] Dr. Dale Coffey MD Work Phone: [facility] 11-03-2024 11:41-0500 Body mass index (BMI) [Ratio] 32.29 kg/m2 Roseann Teresa [employer]OTIVE [employer] SALES MANAGER.[employer] Work Phone: [facility] 11-03-2024 11:41-0500 Body weight 111 kg Roseann Teresa AUTOMOTIVE INTERNET SALES MANAGER.[employer] Work Phone: [facility] 11-03-2024 11:41-0500 Diastolic blood pressure 100 mm[Hg] Roseann Teresa AUTOMOTIVE INTERNET SALES MANAGER.[employer] Work Phone: [facility] 11-03-2024 11:41-0500 Heart rate 88 /min Roseann Teresa AUTOMOTIVE INTERNET SALES MANAGER.[employer] Work Phone: [facility] 11-03-2024 11:41-0500 Respiratory rate 12 /min Roseann Teresa AUTOMOTIVE INTERNET SALES MANAGER.[employer] Work Phone: [facility] 11-03-2024 11:41-0500 SaO2% (BldA) [Mass fraction] 98 % Roseann Teresa AUTOMOTIVE INTERNET SALES MANAGER.[employer] Work Phone: [facility] 11-03-2024 11:41-0500 Systolic blood pressure 146 mm[Hg] Roseann Teresa AUTOMOTIVE INTERNET SALES MANAGER.[employer] Work Phone: [facility] 10-11-2024 14:08-0500 Body height 185.4 cm Denys Landaverde MD Work Phone: [facility] 10-11-2024 14:08-0500 Body mass index (BMI) [Ratio] 31 kg/m2 Denys Landaverde MD Work Phone: [facility] 10-11-2024 14:08-0500 Body temperature 98.4 [degF] Denys Landaverde MD Work Phone: [facility] 10-11-2024 14:08-0500 Body weight 106.59 kg Denys Landaverde MD Work Phone: [facility] 10-11-2024 14:08-0500 Diastolic blood pressure 110 mm[Hg] Denys Landaverde MD Work Phone: [facility] Comment on above: Dr. Landaverde notified of blood pressure. Advised patient to update his PCP of blood pressures. 10-11-2024 14:08-0500 Heart rate 104 /min Denys Landaverde MD Work Phone: [facility] 10-11-2024 14:08-0500 Respiratory rate 14 /min Denys Landaverde MD Work Phone: [facility] 10-11-2024 14:08-0500 SaO2% (BldA) [Mass fraction] 100 % Denys Landaverde MD Work Phone: [facility] 10-11-2024 14:08-0500 Systolic blood pressure 166 mm[Hg] Denys Landaverde MD Work Phone: [facility] Comment on above: Dr. Landaverde notified of blood pressure. Advised patient to update his PCP of blood pressures. 10-09-2024 18:01-0500 Diastolic blood pressure 104 mm[Hg] Dr. Dale Coffey MD Work Phone: [facility] 10-09-2024 18:01-0500 Systolic blood pressure 148 mm[Hg] Dr. Dale Coffey MD Work Phone: [facility] 10-09-2024 16:02-0500 Body mass index (BMI) [Ratio] 31.4 kg/m2 Dr. Dale Coffey MD Work Phone: [facility] 10-09-2024 16:02-0500 Body temperature 97 [degF] Dr. Dale Coffey MD Work Phone: [facility] 10-09-2024 16:02-0500 Body weight 107.[address] Dale Coffey MD Work Phone: [facility] 10-09-2024 16:02-0500 Heart rate 97 /min Dr. Dale Coffey MD Work Phone: [facility] 10-09-2024 16:02-0500 Respiratory rate 18 /min Dr. Dale Coffey MD Work Phone: [facility] 10-09-2024 16:02-0500 SaO2% (BldA) [Mass fraction] 98 % Dr. Dale Coffey MD Work Phone: [facility] 04-02-2024 08:25-0400 Body height 182.9 cm Evelyne Fam AUTOMOTIVE INTERNET SALES MANAGER.[employer] Work Phone: [facility] 04-02-2024 08:25-0400 Body mass index (BMI) [Ratio] 33.91 kg/m2 Evelyne Fam AUTOMOTIVE INTERNET SALES MANAGER.[employer] Work Phone: [facility] 04-02-2024 08:25-0400 Body weight 113.4 kg Evelyne Fam AUTOMOTIVE INTERNET SALES MANAGER.[employer] Work Phone: [facility] 04-02-2024 08:25-0400 Diastolic blood pressure 100 mm[Hg] Evelyne Fam AUTOMOTIVE INTERNET SALES MANAGER.[employer] Work Phone: [facility] 04-02-2024 08:25-0400 Heart rate 68 /min Evelyne Fam AUTOMOTIVE INTERNET SALES MANAGER.[employer] Work Phone: [facility] 04-02-2024 08:25-0400 Respiratory rate 14 /min Evelyne Fam AUTOMOTIVE INTERNET SALES MANAGER.[employer] Work Phone: [facility] 04-02-2024 08:25-0400 SaO2% (BldA) [Mass fraction] 99 % Evelyne Fam AUTOMOTIVE INTERNET SALES MANAGER.[employer] Work Phone: [facility] 04-02-2024 08:25-0400 Systolic blood pressure 160 mm[Hg] Evelyne Fam AUTOMOTIVE INTERNET SALES MANAGER.[employer] Work Phone: [facility] 03-30-2024 10:06-0400 Body mass index (BMI) [Ratio] 34.29 kg/m2 Carito Key AUTOMOTIVE INTERNET SALES MANAGER.[employer] Work Phone: [facility] 03-30-2024 10:06-0400 Body temperature 97.81 [degF] Carito Key [employer]OTIVE INTER[employer] SALES MANAGER.[employer] Work Phone: [facility] 03-30-2024 10:06-0400 Body weight 114.7 kg Carito Key [employer]OTIVE INTERNET SALES MANAGER.[employer] Work Phone: [facility] 03-30-2024 10:06-0400 Diastolic blood pressure 90 mm[Hg] Carito Key AUTOMOTIVE INTERNET SALES MANAGER.[employer] Work Phone: [facility] 03-30-2024 10:06-0400 Heart rate 64 /min Carito Key AUTOMOTIVE INTERNET SALES MANAGER.[employer] Work Phone: [facility] 03-30-2024 10:06-0400 Respiratory rate 16 /min Carito Key AUTOMOTIVE INTERNET SALES MANAGER.[employer] Work Phone: [facility] 03-30-2024 10:06-0400 SaO2% (BldA) [Mass fraction] 97 % Carito Key AUTOMOTIVE INTERNET SALES MANAGER.[employer] Work Phone: [facility] 03-30-2024 10:06-0400 Systolic blood pressure 158 mm[Hg] Carito Key AUTOMOTIVE INTERNET SALES MANAGER.[employer] Work Phone: [facility] 11-28-2023 16:48-0500 Body temperature 98.2 [degF] [facility] 11-28-2023 16:48-0500 Diastolic blood pressure 88 mm[Hg] [facility] 11-28-2023 16:48-0500 Heart rate 72 /min [facility] 11-28-2023 16:48-0500 Respiratory rate 16 /min [facility] 11-28-2023 16:48-0500 SaO2% (BldA) [Mass fraction] 97 % [facility] 11-28-2023 16:48-0500 Systolic blood pressure 139 mm[Hg] [facility] 11-28-2023 12:05-0500 Body height 185.42 cm [facility] 11-28-2023 12:05-0500 Body mass index (BMI) [Ratio] 31.7 kg/m2 [facility] 11-28-2023 12:05-0500 Body weight 109.11 kg [facility] 11-02-2023 16:21-0500 Body height 185.42 cm [facility] 11-02-2023 16:21-0500 Body mass index (BMI) [Ratio] 33.5 kg/m2 [facility] 11-02-2023 16:21-0500 Body temperature 98.1 [degF] [facility] 11-02-2023 16:21-0500 Body weight 115.43 kg [facility] 11-02-2023 16:21-0500 Diastolic blood pressure 125 mm[Hg] [facility] 11-02-2023 16:21-0500 Heart rate 110 /min [facility] 11-02-2023 16:21-0500 Respiratory rate 16 /min [facility] 11-02-2023 16:21-0500 SaO2% (BldA) [Mass fraction] 100 % [facility] 11-02-2023 16:21-0500 Systolic blood pressure 177 mm[Hg] [facility] 08-29-2023 10:31-0500 Body weight 111.45 kg Evelyne Fam AUTOMOTIVE INTERNET SALES MANAGER.[employer] Work Phone: [facility] 08-29-2023 10:31-0500 Diastolic blood pressure 88 mm[Hg] Evelyne Fam AUTOMOTIVE INTERNET SALES MANAGER.[employer] Work Phone: [facility] 08-29-2023 10:31-0500 Heart rate 78 /min Evelyne Fam AUTOMOTIVE INTERNET SALES MANAGER.[employer] Work Phone: [facility] 08-29-2023 10:31-0500 Respiratory rate 16 /min Evelyne Fam AUTOMOTIVE INTERNET SALES MANAGER.[employer] Work Phone: [facility] 08-29-2023 10:31-0500 Systolic blood pressure 140 mm[Hg] Evelyne Fam AUTOMOTIVE INTERNET SALES MANAGER.SOLAR PHOTOVOLTAIC CREW LEAD Work Phone: [facility] 07-14-2023 09:46-0400 Diastolic blood pressure 112 mm[Hg] [facility] 07-14-2023 09:46-0400 Systolic blood pressure 164 mm[Hg] [facility] 07-14-2023 09:45-0400 Body mass index (BMI) [Ratio] 33.5 kg/m2 [facility] 07-14-2023 09:45-0400 Body weight 112.3 kg [facility] 07-14-2023 09:34-0400 Body height 182.88 cm [facility] 07-14-2023 09:34-0400 Body temperature 98 [degF] [facility] 07-14-2023 09:34-0400 Heart rate 100 /min [facility] 07-14-2023 09:34-0400 Respiratory rate 20 /min [facility] 07-14-2023 09:34-0400 SaO2% (BldA) [Mass fraction] 98 % [facility] 07-04-2023 11:14-0400 Diastolic blood pressure 114 mm[Hg] Evelyne Fam AUTOMOTIVE INTERNET SALES MANAGER.SOLAR PHOTOVOLTAIC CREW LEAD Work Phone: [facility] 07-04-2023 11:14-0400 Heart rate 77 /min Evelyne Fam AUTOMOTIVE INTERNET SALES MANAGER.SOLAR PHOTOVOLTAIC CREW LEAD Work Phone: [facility] 07-04-2023 11:14-0400 Systolic blood pressure 157 mm[Hg] Evelyne Fam AUTOMOTIVE INTERNET SALES MANAGER.SOLAR PHOTOVOLTAIC CREW LEAD Work Phone: [facility] 07-04-2023 10:52-0400 Body temperature 99.61 [degF] Evelyne Fam AUTOMOTIVE INTERNET SALES MANAGER.SOLAR PHOTOVOLTAIC CREW LEAD Work Phone: [facility] 07-04-2023 10:52-0400 Body weight 112.95 kg Evelyne Fam AUTOMOTIVE INTERNET SALES MANAGER.SOLAR PHOTOVOLTAIC CREW LEAD Work Phone: [facility] 07-04-2023 10:52-0400 Respiratory rate 18 /min Evelyne Fam AUTOMOTIVE INTERNET SALES MANAGER.SOLAR PHOTOVOLTAIC CREW LEAD Work Phone: [facility] 05-23-2023 09:39-0400 Diastolic blood pressure 100 mm[Hg] Evelyne Fam AUTOMOTIVE INTERNET SALES MANAGER.SOLAR PHOTOVOLTAIC CREW LEAD Work Phone: [facility] 05-23-2023 09:39-0400 Systolic blood pressure 150 mm[Hg] Evelyne Fam AUTOMOTIVE INTERNET SALES MANAGER.SOLAR PHOTOVOLTAIC CREW LEAD Work Phone: [facility] 05-23-2023 09:37-0400 Body weight 107.5 kg Evelyne Fam AUTOMOTIVE INTERNET SALES MANAGER.SOLAR PHOTOVOLTAIC CREW LEAD Work Phone: [facility] 05-23-2023 09:37-0400 Heart rate 103 /min Evelyne Fam AUTOMOTIVE INTERNET SALES MANAGER.SOLAR PHOTOVOLTAIC CREW LEAD Work Phone: [facility] 05-23-2023 09:37-0400 SaO2% (BldA) [Mass fraction] 98 % Evelyne Fam AUTOMOTIVE INTERNET SALES MANAGER.SOLAR PHOTOVOLTAIC CREW LEAD Work Phone: [facility] 05-19-2023 19:40-0400 Diastolic blood pressure 91 mm[Hg] [facility] 05-19-2023 19:40-0400 Heart rate 71 /min [facility] 05-19-2023 19:40-0400 Respiratory rate 18 /min [facility] 05-19-2023 19:40-0400 SaO2% (BldA) [Mass fraction] 97 % [facility] 05-19-2023 19:40-0400 Systolic blood pressure 160 mm[Hg] [facility] 05-19-2023 14:56-0400 Body mass index (BMI) [Ratio] 32.6 kg/m2 [facility] 05-19-2023 14:56-0400 Body temperature 98 [degF] [facility] 05-19-2023 14:56-0400 Body weight 112.3 kg [facility] 03-28-2023 18:33-0400 Diastolic Blood Pressure Non-Invasive 92 1 SATNAM SAMAYOA MD [facility] 03-28-2023 18:33-0400 Heart rate 83 /min SATNAM SAMAYOA MD [facility] 03-28-2023 18:33-0400 Respiratory rate 16 /min SATNAM SAMAYOA MD [facility] 03-28-2023 18:33-0400 Systolic Blood Pressure Non-Invasive 139 1 SATNAM SAMAYOA MD [facility] 03-28-2023 17:32-0400 Diastolic Blood Pressure Non-Invasive 102 1 SATNAM SAMAYOA MD [facility] 03-28-2023 17:32-0400 Heart rate 84 /min SATNAM SAMAYOA MD [facility] 03-28-2023 17:32-0400 Respiratory rate 16 /min SATNAM SAMAYOA MD [facility] 03-28-2023 17:32-0400 Systolic Blood Pressure Non-Invasive 192 1 SATNAM SAMAYOA MD [facility] 03-28-2023 16:12-0400 Diastolic Blood Pressure Non-Invasive 115 1 SATNAM SAMAYOA MD [facility] 03-28-2023 16:12-0400 Heart rate 90 /min SATNAM SAMAYOA MD [facility] 03-28-2023 16:12-0400 Respiratory rate 16 /min SATNAM SAMAYOA MD [facility] 03-28-2023 16:12-0400 Systolic Blood Pressure Non-Invasive 191 1 SATNAM SAMAYOA MD [facility] 03-28-2023 15:11-0400 Body temperature 98.06 [degF] SATNAM SAMAYOA MD [facility] 03-28-2023 15:11-0400 Body weight 119.3 kg SATNAM SAMAYOA MD [facility] 06-10-2022 11:10-0400 Diastolic blood pressure 106 mm[Hg] Nasra Rice AUTOMOTIVE INTERNET SALES MANAGER.LEATHER TACKER Work Phone: [facility] 06-10-2022 11:10-0400 Heart rate 73 /min Nasra Rice AUTOMOTIVE INTERNET SALES MANAGER.LEATHER TACKER Work Phone: [facility] 06-10-2022 11:10-0400 Systolic blood pressure 153 mm[Hg] Nasra Rice AUTOMOTIVE INTERNET SALES MANAGER.LEATHER TACKER Work Phone: [facility] 06-10-2022 11:06-0400 Body weight 126.55 kg Nasra Rice AUTOMOTIVE INTERNET SALES MANAGER.LEATHER TACKER Work Phone: [facility] 06-10-2022 11:06-0400 Respiratory rate 16 /min Nasra Rice AUTOMOTIVE INTERNET SALES MANAGER.LEATHER TACKER Work Phone: [facility] 05-23-2022 10:30-0400 Diastolic blood pressure 94 mm[Hg] Renee Older AUTOMOTIVE INTERNET SALES MANAGER.SOLAR PHOTOVOLTAIC CREW LEAD Work Phone: [facility] 05-23-2022 10:30-0400 Heart rate 68 /min Renee Older AUTOMOTIVE INTERNET SALES MANAGER.SOLAR PHOTOVOLTAIC CREW LEAD Work Phone: [facility] 05-23-2022 10:30-0400 Respiratory rate 16 /min Renee Older AUTOMOTIVE INTERNET SALES MANAGER.SOLAR PHOTOVOLTAIC CREW LEAD Work Phone: [facility] 05-23-2022 10:30-0400 Systolic blood pressure 132 mm[Hg] Renee Older AUTOMOTIVE INTERNET SALES MANAGER.SOLAR PHOTOVOLTAIC CREW LEAD Work Phone: [facility] 05-16-2022 10:58-0400 Body weight 124.29 kg Renee Older AUTOMOTIVE INTERNET SALES MANAGER.SOLAR PHOTOVOLTAIC CREW LEAD Work Phone: [facility] 05-16-2022 10:58-0400 Diastolic blood pressure 94 mm[Hg] Renee Older AUTOMOTIVE INTERNET SALES MANAGER.SOLAR PHOTOVOLTAIC CREW LEAD Work Phone: [facility] 05-16-2022 10:58-0400 Heart rate 72 /min Renee Older AUTOMOTIVE INTERNET SALES MANAGER.SOLAR PHOTOVOLTAIC CREW LEAD Work Phone: [facility] 05-16-2022 10:58-0400 Respiratory rate 16 /min Renee Older AUTOMOTIVE INTERNET SALES MANAGER.SOLAR PHOTOVOLTAIC CREW LEAD Work Phone: [facility] 05-16-2022 10:58-0400 Systolic blood pressure 158 mm[Hg] Renee Galindo APRN.CNP Work Phone: [facility] 03-12-2022 15:00-0400 Diastolic blood pressure 105 mm[Hg] [facility] Work Phone: 03-12-2022 15:00-0400 Heart rate 85 /min [facility] Work Phone: 03-12-2022 15:00-0400 Respiratory rate 16 /min [facility] Work Phone: 03-12-2022 15:00-0400 SaO2% (BldA) [Mass fraction] 100 % [facility] Work Phone: 03-12-2022 15:00-0400 Systolic blood pressure 158 mm[Hg] [facility] Work Phone: 03-12-2022 11:10-0400 Body height 185.42 cm [facility] Work Phone: 03-12-2022 11:10-0400 Body mass index (BMI) [Ratio] 35.9 kg/m2 [facility] Work Phone: 03-12-2022 11:10-0400 Body temperature 97.1 [degF] [facility] Work Phone: 03-12-2022 11:10-0400 Body weight 123.28 kg [facility] Work Phone: 03-11-2022 14:08-0400 Heart rate 93 /min [facility] Work Phone: 03-11-2022 14:08-0400 Respiratory rate 15 /min [facility] Work Phone: 03-11-2022 12:22-0400 Diastolic blood pressure 112 mm[Hg] [facility] Work Phone: 03-11-2022 12:22-0400 Systolic blood pressure 174 mm[Hg] [facility] Work Phone: 03-11-2022 12:02-0400 Body height 185.42 cm [facility] Work Phone: 03-11-2022 12:02-0400 Body mass index (BMI) [Ratio] 36.9 kg/m2 [facility] Work Phone: 03-11-2022 12:02-0400 Body temperature 97.7 [degF] [facility] Work Phone: 03-11-2022 12:02-0400 Body weight 127 kg [facility] Work Phone: 03-11-2022 12:02-0400 SaO2% (BldA) [Mass fraction] 95 % [facility] Work Phone: 03-10-2022 17:52-0400 Body height 185.42 cm [facility] Work Phone: 03-10-2022 17:52-0400 Body mass index (BMI) [Ratio] 36.9 kg/m2 [facility] Work Phone: 03-10-2022 17:52-0400 Body temperature 97.5 [degF] [facility] Work Phone: 03-10-2022 17:52-0400 Body weight 127 kg [facility] Work Phone: 03-10-2022 17:52-0400 Diastolic blood pressure 101 mm[Hg] [facility] Work Phone: 03-10-2022 17:52-0400 Heart rate 104 /min [facility] Work Phone: 03-10-2022 17:52-0400 Respiratory rate 18 /min [facility] Work Phone: 03-10-2022 17:52-0400 SaO2% (BldA) [Mass fraction] 96 % [facility] Work Phone: 03-10-2022 17:52-0400 Systolic blood pressure 162 mm[Hg] [facility] Work Phone: 03-07-2022 10:16-0400 Body height 182.[address] Work Phone: [facility] 03-07-2022 10:16-0400 Body weight 127.[address] Work Phone: [facility] 02-20-2022 11:56-0400 Body height 182.9 cm Lionel Pressley MD Work Phone: [facility] 02-20-2022 11:56-0400 Body weight 127.46 kg Lionel Pressley MD Work Phone: [facility] 02-20-2022 11:56-0400 Diastolic blood pressure 90 mm[Hg] Lionel Pressley MD Work Phone: [facility] 02-20-2022 11:56-0400 Heart rate 79 /min Lionel Pressley MD Work Phone: [facility] 02-20-2022 11:56-0400 Systolic blood pressure 131 mm[Hg] Lionel Pressley MD Work Phone: [facility] 02-20-2022 11:32-0400 Diastolic blood pressure 90 mm[Hg] Anastacio Braxtone DO Work Phone: [facility] 02-20-2022 11:32-0400 Systolic blood pressure 131 mm[Hg] Anastacio Rosenbaum DO Work Phone: [facility] 02-20-2022 11:28-0400 Body height 182.9 cm Anastacio Rosenbaum DO Work Phone: [facility] 02-20-2022 11:28-0400 Body weight 127.46 kg Anastacio Braxtone DO Work Phone: [facility] 02-20-2022 11:28-0400 Heart rate 79 /min Anastacio Braxtone DO Work Phone: [facility] 02-20-2022 11:28-0400 Respiratory rate 18 /min Anastacio Rosenbaum DO Work Phone: [facility] 02-20-2022 11:28-0400 SaO2% (BldA) [Mass fraction] 98 % Anastacio Rosenbaum DO Work Phone: [facility] Encounters Encounter Date Encounter Type Care Provider Facility Start: 03-14-2025 ambulatory Evelyne Fam PRODUCT DEVELOPMENT SPECIALIST Facilit y:[facility] Start: 02-24-2025 ambulatory Evelyne Fam PRODUCT DEVELOPMENT SPECIALIST Facilit y:[facility] Start: 02-07-2025 ambulatory Evelyne Fam PRODUCT DEVELOPMENT SPECIALIST Facilit y:[facility] Start: 02-04-2025 End: 02-04-2025 ambulatory Evelyne Fam PRODUCT DEVELOPMENT SPECIALIST Facility:[facility] Start: 01-19-2025 End: 01-19-[facility] Start: 12-25-2024 End: 12-25-[address] Dale Coffey MD Work Phone: [facility] Work Phone: Start: 12-25-2024 End: 12-25-2024 Patient encounter procedure Malini RUSS -[facility] Work Phone: Start: 12-25-2024 End: 12-25-2024 ambulatory Evelyne Fam PRODUCT DEVELOPMENT SPECIALIST Facility:[facility] Start: 12-16-2024 End: 12-16-[address] Dale Coffey MD Work Phone: [facility] Work Phone: Start: 12-16-2024 End: 12-16-2024 Patient encounter procedure Malini RUSS -Laboratory Work Phone: Start: 12-16-2024 End: 12-16-2024 Patient encounter procedure Malini RUSS -[facility] Work Phone: Start: 12-16-2024 End: 12-16-2024 ambulatory Malini Mckeon Facility:[facility] Start: 12-16-2024 End: 12-16-2024 ambulatory Evelyne Fam PRODUCT DEVELOPMENT SPECIALIST Facility:[facility] Start: 12-08-2024 End: 12-08-[address] Anastacio Bautista MD -[facility] Work Phone: Start: 12-08-2024 End: 12-08-2024 ambulatory Evelyne Christiansen PRODUCT DEVELOPMENT SPECIALIST Facility:[facility] Start: 11-30-2024 End: 12-08-2024 ambulatory Preston Novoa MD Work Phone: [facility] Comment on above: Diabetes Start: 11-03-2024 End: 11-03-2024 ambulatory PRESTON NOVOA Facility:[facility] Start: 11-03-2024 End: 11-03-2024 Patient encounter procedure Roseann Morton AUTOMOTIVE INTERNET SALES MANAGER.SOLAR PHOTOVOLTAIC CREW LEAD Work Phone: [facility] Comment on above: Vitreous floaters of left eye (Primary Dx); Type 2 diabetes mellitus without complication, without long-term current use of insulin (HCC); Bilateral impacted cerumen Start: 10-11-2024 End: 10-11-2024 ambulatory PRESTON NOVOA Facility:[facility] Start: 10-11-2024 End: 10-11-2024 Patient encounter procedure Denys Landaverde MD Work Phone: General Surgery Comment on above: Pain of upper abdome n (Primary Dx); Diastasis recti Start: 10-09-2024 End: 10-09-2024 Emergency department patient visit Dr. Dale Coffey MD -Emergency Department Work Phone: Start: 04-02-2024 End: 04-02-2024 ambulatory PRESTON NOVOA Facility:[facility] Start: 04-02-2024 End: 04-02-2024 Patient encounter procedure Evelyne Christiansen AUTOMOTIVE INTERNET SALES MANAGER.SOLAR PHOTOVOLTAIC CREW LEAD Work Phone: [facility] Comment on above: Cellulitis of left l ower extremity (Primary Dx); Type 2 diabetes mellitus with hyperglycemia, without long-term current use of insulin (HCC); Primary hypertension; Problems related to health literacy; Encounter for therapeutic drug monitoring Start: 03-30-2024 Telephone encounter Carito natarajan AUTOMOTIVE INTERNET SALES MANAGER.SOLAR PHOTOVOLTAIC CREW LEAD Work Phone: [facility] Comment on above: Results Start: 03-30-2024 End: 03-30-2024 ambulatory PRESTON NOVOA Facility:[facility] Start: 03-30-2024 End: 03-30-2024 Patient encounter procedure Carito Key APRN.CNP Work Phone: [facility] Comment on above: Pain and swelling of left lower leg (Primary Dx); Cellulitis of left lower leg Start: 02-05-2024 Telephone encounter Pharmacist [facility] Comment on above: Appointment (Primary Care Pharmacy) Start: 02-04-2024 ambulatory Aly Noriega [facility] Work Phone: [facility] Start: 02-04-2024 Patient encounter procedure Aly Noriega [facility] Work Phone: [facility] Start: 11-28-2023 End: 11-28-2023 [facility] Start: 11-02-2023 End: 11-02-2023 [facility] Start: 08-29-2023 End: 08-29-2023 Patient encounter procedure Evelyne Christiansen APRN.SOLAR PHOTOVOLTAIC CREW LEAD Work Phone: [facility] Comment on above: Type 2 diabetes janny itus without complication, without long- term current use of insulin (HCC) (Primary Dx); Primary hypertension; Gastroparesis; Obesity, Class I, BMI 30-34.9; Encounter for therapeutic drug monitoring Start: 07-14-2023 ambulatory Preston elizalde MD Work Phone: [facility] Comment on above: Vomiting Start: 07-14-2023 End: 07-14-2023 [facility] Start: 07-08-2023 ambulatory Evelyne Christiansen APRN.SOLAR PHOTOVOLTAIC CREW LEAD Work Phone: [facility] Comment on above: Results Start: 07-08-2023 E-mail encounter fro m caregiver Evelyne Christiansen APRN.CNP Work Phone: [facility] Start: 07-04-2023 End: 07-04-2023 Patient encounter procedure Evelyne Christiansen APRN.SOLAR PHOTOVOLTAIC CREW LEAD Work Phone: [facility] Comment on above: Primary hypertension (Primary Dx); Gastroparesis; Lower abdominal pain; Abdominal cramping; Type 2 diabetes mellitus without complication, without long-term current use of insulin (HCC); Encounter for therapeutic drug monitoring; Screening, lipid Start: 06-03-2023 ambulatory Evelyne Christiansen APRN.SOLAR PHOTOVOLTAIC CREW LEAD Work Phone: [facility] Comment on above: Results Start: 06-03-2023 E-mail encounter fro m caregiver Evelyne Christiansen APRN.SOLAR PHOTOVOLTAIC CREW LEAD Work Phone: [facility] Start: 05-29-2023 End: 05-29-2023 Subsequent hospital visit by physician [facility] [place] [facility] Work Phone: Radiology Comment on above: Acute suprapubic bradford n [R10.2] Start: 05-23-2023 End: 05-23-2023 Patient encounter procedure Evelyne Christiansen APRN.SOLAR PHOTOVOLTAIC CREW LEAD Work Phone: [facility] Comment on above: Acute suprapubic bradford n (Primary Dx); Abdominal cramping; Bilateral impacted cerumen Start: 05-19-2023 End: 05-19-2023 Emergency department patient visit [facility] Work Phone: Start: 03-28-2023 End: 03-28-2023 Emergency department patient visit SATNAM SAMAYOA MD Facility:[facility] Start: 03-28-2023 End: 03-28-2023 Emergency department patient visit SATNAM SAMAYOA MD [facility] Start: 06-10-2022 End: 06-10-2022 Patient encounter procedure Nasra Rice APRN.LEATHER TACKER Work Phone: [facility] Comment on above: Primary hypertension (Primary Dx); Type 2 diabetes mellitus without complication, without long-term current use of insulin (HCC); Excessive cerumen in ear canal, bilateral; Encounter for immunization Start: 05-23-2022 End: 05-23-2022 Patient encounter procedure Renee Josie FLORENCE.SOLAR PHOTOVOLTAIC CREW LEAD Work Phone: [facility] Comment on above: Bruise (Primary Dx); Soft tissue mass Start: 05-16-2022 Telephone encounter Lionel Tan MD Work Phone: General Surgery Comment on above: Clinical Update Start: 05-16-2022 End: 05-16-2022 Patient encounter procedure Renee Galindo AUTOMOTIVE INTERNET SALES MANAGER.SOLAR PHOTOVOLTAIC CREW LEAD Work Phone: [facility] Comment on above: Bruise (Primary Dx); Soft tissue mass; Essential hypertension Start: 03-12-2022 End: 03-12-2022 [facility] Start: 03-11-2022 ambulatory Lisa Garcia Work Phone: Internal [facility] Comment on above: Vomiting Start: 03-11-2022 End: 03-11-2022 Emergency department patient visit [facility] Start: 03-10-2022 End: 03-10-2022 Emergency department patient visit [facility] Start: 03-10-2022 ambulatory Nasra Rice AUTOMOTIVE INTERNET SALES MANAGER.LEATHER TACKER Work Phone: Internal [facility] Comment on above: Puking Start: 03-07-2022 End: 03-07-[address] Work Phone: Nutrition Therapy Comment on above: Type 2 diabetes janny itus without complication, without long- term current use of insulin (HCC) (Primary Dx); Gastroparesis; Dietary counseling and surveillance Start: 03-07-2022 End: 03-07-2022 Telemedicine consultation with patient Jamee Buck RD Work Phone: [facility] Start: 02-28-2022 Orders Only Lowell Aguilar Work Phone: Gastroenterology Comment on above: Gastroparesis (Prima ry Dx) Start: 02-20-2022 End: 02-20-2022 Patient encounter procedure Anastacio Rosenbaum DO Work Phone: Gastroenterology Comment on above: Gastroparesis (Prima ry Dx) Start: 01-28-2022 End: 01-28-2022 Patient encounter procedure Ana Bhandari OD Work Phone: Ophthalmology Comment on above: 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 Dale Coffey MD Work Phone: Start: 11-28-2023 Computed tomography of abdomen and pelvis with intravenous contrast Start: 07-14-2023 Computed tomography of abdomen and pelvis with intravenous contrast Start: 05-29-2023 Us retroperitoneal r eal time w/image complete Evelyne Christiansen APRN.SOLAR PHOTOVOLTAIC CREW LEAD Work Phone: Start: 05-23-2023 Urnls dip stick/tabl et rgnt auto w/o microscopy Evelyne Christiansen APRN.SOLAR PHOTOVOLTAIC CREW LEAD Work Phone: Start: 05-19-2023 Computed tomography of abdomen and pelvis with intravenous contrast Start: 03-12-2022 Computed tomography of abdomen and pelvis with contrast Start: 03-10-2022 Computed tomography of abdomen and pelvis with intravenous contrast Start: 07-05-2021 Adult depression scr eening assessment Anastacio Rosenbaum DO Work Phone: Cholecystectomy SATNAM Bazan MD Elbow region structu re (body structure) SATNAM SAMAYOA MD Comment on above: Right Plan of Treatment Date Care Activity Detail Author Start: 11-03-2025 Annual PCP Team Bioinformatics Developer frandy Disease Visit Annual PCP Team Chronic Disease Visit [facility] Start: 04-02-2025 Annual PCP Team Bioinformatics Developer frandy Disease Visit Annual PCP Team Chronic Disease Visit [facility] Start: 04-02-2025 Hepatitis B surface antibody level LDL Cholesterol [facility] Start: 12-23-2024 End: 12-23-2024 Patient encounter procedure 12/23/2024 8:15 AM EDT Office Visit [facility] [address] [place] [address] Ana Bhandari, OD [address] [place] [address] Dx: Vitreous floaters of left eye [H43.392]; Type 2 diabetes mellitus without complication, without long-term current use of insulin (HCC) [E11.9] Ophthalmology Comment on above: Dx: Vitreous floater s of left eye [H43.392]; Type 2 diabetes mellitus without complication, without long-term current use of insulin (HCC) [E11.9] Start: 10-21-2024 Annual PCP Team Bioinformatics Developer frandy Disease Visit Annual PCP Team Chronic Disease Visit [facility] Start: 10-11-2024 End: 01-10-2025 CREATININE BLD CREATININE BLD Lab Routine Pain of upper abdomen Diastasis recti Expected: 10/11/2024, Expires: 01/10/2025 [facility] Comment on above: Expected: 10/11/2024 , Expires: 01/10/2025 Start: 10-09-2024 [facility] Start: 10-09-2024 [facility] Start: 08-29-2024 Annual PCP Team Bioinformatics Developer frandy Disease Visit Annual PCP Team Chronic Disease Visit [facility] Start: 08-29-2024 Covid-19 Vaccine () Covid-19 Vaccine () [facility] Comment on above: Postponed from 05/23 (Declined at this time) Start: 08-29-2024 Pneumococcal vaccination [facility] Comment on above: Postponed from 12/17 (Declined at this time) Start: 07-10-2024 Urine microalbumin profile DTaP,Tdap,Td Vaccine (5 - Td or Tdap) [facility] Start: 07-04-2024 Annual PCP Team Bioinformatics Developer frandy Disease Visit Annual PCP Team Chronic Disease Visit [facility] Start: 07-04-2024 Hepatitis B surface antibody level LDL Cholesterol [facility] Start: 07-03-2024 Hemoglobin A1c measurement HbA1C [facility] Start: 05-23-2024 ANNUAL PCP TEAM CRYSTAL GROWING TECHNICIAN FRANDY DISEASE VISIT ANNUAL PCP TEAM CHRONIC DISEASE VISIT [facility] Start: 05-23-2024 Covid-19 Vaccine () Covid-19 Vaccine () [facility] Start: 05-23-2024 Influenza vaccination [facility] Start: 04-23-2024 End: 04-23-2024 Patient encounter procedure 04/23/2024 9:20 AM EDT Office Visit [facility] [address], [place] [id number] Evelyne Christiansen APRN.[facility] [address] [place] [address] 3 week follow up [facility] Comment on above: 3 week follow up Start: 04-02-2024 End: 07-02-2024 CBC W Auto Differential panel - Blood [facility] Comment on above: Expected: 04/02/2024 , Expires: 07/02/2024 Start: 04-02-2024 End: 07-02-2024 Comprehensive metabolic 2000 panel - Serum or Plasma [facility] Comment on above: Expected: 04/02/2024 , Expires: 07/02/2024 Start: 04-02-2024 End: 07-02-2024 Hemoglobin A1c in Blood [facility] Work Phone: Comment on above: Expected: 04/02/2024 , Expires: 07/02/2024 Start: 04-02-2024 End: 07-02-2024 LIPID PANEL, NONFASTING [facility] Comment on above: Expected: 04/02/2024 , Expires: 07/02/2024 Start: 04-02-2024 End: 04-02-2024 Patient encounter procedure 04/02/2024 8:20 AM EDT Office Visit [facility] [address], [place] [id number] Evelyne Christiansen APRN.[employer] [address] [place] [address] My left leg and ankle swollen up bad [facility] Comment on above: My left leg and ankl e swollen up bad Start: 03-21-2024 Influenza vaccination Influenza Vacc ine (#1) [facility] Comment on above: Postponed from 05/23 (Declined at this time) Start: 01-20-2024 Hemoglobin A1c measurement HbA1C [facility] Start: 11-28-2023 [facility] Start: 10-30-2023 End: 01-29-2024 CBC W Auto Differential panel - Blood CBC + DIFF Lab Routine Encounter for therapeutic drug monitoring Expected: 10/30/2023, Expires: 01/29/[address] [facility] Work Phone: Comment on above: Expected: 10/30/2023 , Expires: 01/29/2024 Start: 10-30-2023 End: 01-29-2024 Comprehensive metabolic 2000 panel - Serum or Plasma COMP METABOLIC PANEL Lab Routine Encounter for therapeutic drug monitoring Expected: 10/30/2023, Expires: 01/29/[address] [facility] Work Phone: Comment on above: Expected: 10/30/2023 , Expires: 01/29/2024 Start: 10-30-2023 End: 01-29-2024 Hemoglobin A1c in Blood HGB A1C Lab Routine Type 2 diabetes mellitus without complication, without long-term current use of insulin ([facility]) Encounter for therapeutic drug monitoring Expected: 10/30/2023, Expires: 01/29/[address] [facility] Work Phone: Comment on above: Expected: 10/30/2023 , Expires: 01/29/2024 Start: 10-04-2023 Hemoglobin A1c/Hemoglobin.total in Blood HbA1C [facility] Start: 09-22-2023 Behavioral Health Screening Behavioral Health Screening [facility] Start: 09-10-2023 Urine microalbumin profile [facility] Comment on above: Postponed from 05/11 (Declined at this time) Start: 07-14-2023 [facility] Start: 07-04-2023 End: 09-03-2023 CBC W Auto Differential panel - Blood [facility] Work Phone: Comment on above: Expected: 07/04/2023 , Expires: 09/03/2023 Start: 07-04-2023 End: 09-03-2023 Comprehensive metabolic 2000 panel - Serum or Plasma [facility] Work Phone: Comment on above: Expected: 07/04/2023 , Expires: 09/03/2023 Start: 07-04-2023 End: 09-03-2023 Hemoglobin A1c in Blood [facility] Work Phone: Comment on above: Expected: 07/04/2023 , Expires: 09/03/2023 Start: 07-04-2023 End: 09-03-2023 LIPID PANEL, NONFASTING [facility] Work Phone: Comment on above: Expected: 07/04/2023 , Expires: 09/03/2023 Start: 06-14-2023 3 comp foot exam completed DIABETIC FOOT EXAM [facility] Start: 06-14-2023 BP CONTROLLED (<130/80) BP CONTROLLE D (<130/80) [facility] Start: 06-14-2023 Diabetic foot examination Diabetic Foot Exam [facility] Start: 05-23-2023 End: 07-23-2023 ALBUMIN/CREAT RATIO RND UR ALBUMIN/CREAT RATIO RND UR Lab Routine Acute suprapubic pain Abdominal cramping Expected: 05/23/2023, Expires: 07/23/[address] [facility] Work Phone: Comment on above: Expected: 05/23/2023 , Expires: 07/23/2023 Start: 05-23-2023 ANNUAL PCP TEAM CRYSTAL GROWING TECHNICIAN FRANDY DISEASE VISIT ANNUAL PCP TEAM CHRONIC DISEASE VISIT [facility] Start: 05-23-2023 End: 07-23-2023 Comprehensive metabolic 2000 panel - Serum or Plasma [facility] Work Phone: Comment on above: Expected: 05/23/2023 , Expires: 07/23/2023 Start: 09-01-2023 Covid-19 Vaccine ( season) Covid-19 Vaccine ( season) [facility] Start: 05-23-2023 Influenza vaccination [facility] Start: 05-16-2023 ANNUAL PCP TEAM CRYSTAL GROWING TECHNICIAN FRANDY DISEASE VISIT ANNUAL PCP TEAM CHRONIC DISEASE VISIT [facility] Start: 03-21-2023 Influenza vaccination INFLUENZA (#1) [facility] Comment on above: Postponed from 05/23 (Declined at this time) Start: 01-28-2023 Glaucoma screening Dilated Retinal E xam [facility] Start: 01-28-2023 Hepatitis C antibody , confirmatory test DILATED RETINAL EXAM [facility] Start: 10-30-2022 Hepatitis C antibody , confirmatory test DILATED RETINAL EXAM [facility] Start: 10-23-2022 ANNUAL PCP TEAM CRYSTAL GROWING TECHNICIAN FRANDY DISEASE VISIT ANNUAL PCP TEAM CHRONIC DISEASE VISIT [facility] Start: 10-18-2022 Hepatitis B screening URINE ALBUMIN:CREATININE RATIO [facility] Start: 10-18-2022 Hepatitis B surface antibody level LDL CHOLESTEROL [facility] Start: 09-22-2022 DEPRESSION ASSESSMENT DEPRESSION ASS ESSMENT [facility] Start: 08-22-2022 Hemoglobin A1c/Hemoglobin.total in Blood HBA1C [facility] Start: 07-05-2022 Adult depression screening assessment DEPRESSION SCREENING [facility] Start: 06-20-2022 ANNUAL PCP TEAM CRYSTAL GROWING TECHNICIAN FRANDY DISEASE VISIT ANNUAL PCP TEAM CHRONIC DISEASE VISIT [facility] Start: 05-23-2022 Influenza vaccination C [facility] Start: 04-17-2022 Hemoglobin A1c/Hemoglobin.total in Blood HBA1C [facility] Start: 03-21-2022 Influenza vaccination INFLUENZA (#1) [facility] Comment on above: Postponed from 05/23 (Declined at this time) Start: 03-18-2022 COVID-19 VACCINE (3 - Booster for Pfizer series) COVID-19 VACCINE (3 - Booster for Pfizer series) [facility] Start: 03-08-2022 3 comp foot exam completed DIABETIC FOOT EXAM [facility] Start: 03-08-2022 BP CONTROLLED (<130/80) BP CONTROLLE D (<130/80) [facility] Start: 02-28-2022 End: 04-30-2022 ACETYLCHOLINE REC BINDING AB ACETYLCHOLINE REC BINDING AB Lab Routine Gastroparesis Expected: 02/28/2022, Expires: 04/30/[address] [facility] Work Phone: Comment on above: Expected: 02/28/2022 , Expires: 04/30/2022 Start: 02-20-2022 End: 04-22-2022 ACETYLCHOLINE REC BINDING AB [facility] Work Phone: Comment on above: Expected: 02/20/2022 , Expires: 04/22/2022 Start: 02-20-2022 End: 04-22-2022 AMINO ACIDS, PLASMA W/ CONSULTATION [facility] Work Phone: Comment on above: Expected: 02/20/2022 , Expires: 04/22/2022 Start: 02-20-2022 End: 04-22-2022 CARNITINE FREE/TOTAL, PLASMA [facility] Work Phone: Comment on above: Expected: 02/20/2022 , Expires: 04/22/2022 Start: 02-20-2022 End: 04-22-2022 CYTOKINE PANEL 13, SERUM [facility] Work Phone: Comment on above: Expected: 02/20/2022 , Expires: 04/22/2022 Start: 02-20-2022 End: 04-22-2022 Erythrocyte sedimentation rate [facility] Work Phone: Comment on above: Expected: 02/20/2022 , Expires: 04/22/2022 Start: 02-20-2022 End: 04-22-2022 Glutamate decarboxylase 65 Ab [Units/volume] in Serum [facility] Work Phone: Comment on above: Expected: 02/20/2022 , Expires: 04/22/2022 Start: 02-20-2022 End: 04-22-2022 Hemoglobin A1c/Hemoglobin.total in Blood [facility] Work Phone: Comment on above: Expected: 02/20/2022 , Expires: 04/22/2022 Start: 02-20-2022 End: 04-22-2022 IGA BLD [facility] Work Phone: Comment on above: Expected: 02/20/2022 , Expires: 04/22/2022 Start: 02-20-2022 End: 04-22-2022 IgG [Mass/volume] in Serum or Plasma [facility] Work Phone: Comment on above: Expected: 02/20/2022 , Expires: 04/22/2022 Start: 02-20-2022 End: 04-22-2022 IgM [Mass/volume] in Serum or Plasma [facility] Work Phone: Comment on above: Expected: 02/20/2022 , Expires: 04/22/2022 Start: 02-20-2022 End: 04-22-2022 Lactate dehydrogenase [Enzymatic activity/volume] in Serum or Plasma [facility] Work Phone: Comment on above: Expected: 02/20/2022 , Expires: 04/22/2022 Start: 02-20-2022 End: 04-22-2022 ORGANIC ACIDS UR, QUANT W/CONSULTATION [facility] Work Phone: Comment on above: Expected: 02/20/2022 , Expires: 04/22/2022 Start: 02-20-2022 End: 04-22-2022 PLASMA THYMIDINE DETERMINATION [facility] Work Phone: Comment on above: Expected: 02/20/2022 , Expires: 04/22/2022 Start: 02-20-2022 End: 04-22-2022 PYRUVATE+LACTATE BL [facility] Work Phone: Comment on above: Expected: 02/20/2022 , Expires: 04/22/2022 Start: 02-20-2022 End: 04-22-2022 T4 FREE/FREE THYROX [facility] Work Phone: Comment on above: Expected: 02/20/2022 , Expires: 04/22/2022 Start: 02-20-2022 End: 04-22-2022 VOLTAGE GATED CA IGG [facility] Work Phone: Comment on above: Expected: 02/20/2022 , Expires: 04/22/2022 Start: 02-20-2022 End: 04-22-2022 Voltage-gated potassium channel Ab [Moles/volume] in Serum [facility] Work Phone: Comment on above: Expected: 02/20/2022 , Expires: 04/22/2022 Start: 12-13-2021 COVID-19 VACCINE (3 - Pfizer series) COVID-19 VACCINE (3 - Pfizer series) [facility] Start: 2000 HEPATITIS B (1 of 3 - Risk 3-dose series) HEPATITIS B (1 of 3 - Risk 3-dose series) [facility] Start: 2000 Hepatitis B Vaccine (1 of 3 - 19+ 3-dose series) Hepatitis B Vaccine (1 of 3 - 19+ 3-dose series) [facility] Start: 2000 Pneumococcal vaccination Pneumococcal Vaccine (1 of 2 - PCV) [facility] Start: 12-18-1999 Anxiety Screening Anxiety Screening [facility] Start: 12-18-1999 Depression Screening Depression Scre ening [facility] Start: 1997 ONE PNEUMOVAX PRIOR TO AGE 65 ONE PNEUMOVAX PRIOR TO AGE 65 [facility] Start: 12-18-1987 PNEUMOCOCCAL (1 - PCV) PNEUMOCOCCAL (1 - PCV) [facility] Start: 12-18-1987 Pneumococcal vaccination Pneumococcal Vaccine (1 - PCV) [facility] Start: 1981 HEPATITIS B (1 of 3 - 3-dose series) HEPATITIS B (1 of 3 - 3-dose series) [facility] Start: 1981 Hepatitis B Vaccine (1 of 3 - 3-dose series) Hepatitis B Vaccine (1 of 3 - 3-dose series) [facility] CBC W Auto Different ial panel - Blood CBC + DIFF Lab Routine Acute suprapubic pain Lower urinary tract symptoms (LUTS) 05/23/2023 10:32 AM EDT [facility] Work Phone: End: 11-10-2025 CT Abdomen and Pelvis W contrast IV CT ABD/PEL W IVCON Radiology Routine Pain of upper abdomen Diastasis recti 1 Occurrences starting 10/11/2024 until 11/10/[address] [facility] Work Phone: Comment on above: 1 Occurrences starti ng 10/11/2024 until 11/10/2025 Hepb vaccine adult 3 dose schedule for im use HEPATITIS B VACCINE, ADULT AGE 20+, IM Immunization/Injection Routine Encounter for immunization 1 Occurrences starting 06/10/[address] [facility] Work Phone: Comment on above: 1 Occurrences starti ng 06/10/2022 Liver stiffness by US.transient elastography [facility] Patient Education [facility] Work Phone: Patient referral [facility] Work Phone: PFIZER-BIONTECH COVID-19 BIVALENT BOOSTER VACCINE, AGE 12+ YR PFIZER-BIONTECH COVID-19 BIVALENT BOOSTER VACCINE, AGE 12+ YR Immunization/Injection Routine Encounter for immunization 1 Occurrences starting 06/10/[address] [facility] Work Phone: Comment on above: 1 Occurrences starti ng 06/10/2022 Pneumococcal vaccination PNEUMOCOCCAL VACCINE (PREVNAR 20) Immunization/Injection Routine Encounter for immunization 1 Occurrences starting 06/10/[address] [facility] Work Phone: Comment on above: 1 Occurrences starti ng 06/10/2022 Removal impacted cerumen irrigation/lvg unilat AMBULATORY EAR LAVAGE/IRRIGATION Procedures Routine Bilateral impacted cerumen Ordered: 11/03/[address] [facility] Work Phone: Comment on above: Ordered: 11/03/2024 UA DIP B/O UA DIP B/O Lab R outine Acute suprapubic pain Abdominal cramping Ordered: 05/23/[address] [facility] Work Phone: Comment on above: Ordered: 05/23/2023 End: 06-21-2024 US KIDNEY/BLADDER US KIDNEY/BLADDER Radiology Routine Acute suprapubic pain Abdominal cramping 1 Occurrences starting 05/23/2023 until 06/21/[address] [facility] Work Phone: Comment on above: 1 Occurrences starti ng 05/23/2023 until 06/21/2024 US Lower extremity vein US LEG V EIN DVT UNL VAS LAB Vascular Lab STAT Pain and swelling of left lower leg 03/30/2024 10:36 AM EDT [facility]: 04-29-2025 US Lower extremity vein - left US DVT LOWER LEFT Radiology STAT Pain and swelling of left lower leg 1 Occurrences starting 03/30/2024 until 04/29/[address] [facility] Work Phone: Comment on above: 1 Occurrences starti ng 03/30/2024 until 04/29/2025 [facility] Immunizations Immunization Date Immunization Notes Care Provider Priti manning 09-04-2020 influenza, injectabl e, quadrivalent, contains preservative Anastacio Rosenbaum DO Work Phone: [facility] 09-04-2020 influenza virus vaccine, unspecified formulation Evelyne Christiansen APRN.CNP Work Phone: [facility] 07-16-2017 influenza, injectabl e, quadrivalent, preservative free Anastacio Rosenbaum DO Work Phone: [facility] Work Phone: 07-10-2014 tetanus and diphther ia toxoids, adsorbed, preservative free, for adult use (2 Lf of tetanus toxoid and 2 Lf of diphtheria toxoid) SATNAM SAMAYOA MD [facility] 05-11-2013 tetanus and diphther ia toxoids, not adsorbed, for adult use Anastacio Rosenbaum DO Work Phone: [facility] Work Phone: 05-11-2013 tetanus toxoid, redu gely diphtheria toxoid, and acellular pertussis vaccine, adsorbed Anastacio Rosenbaum DO Work Phone: [facility] Work Phone: 03-21-2006 tetanus toxoid, redu gely diphtheria toxoid, and acellular pertussis vaccine, adsorbed Anastacio Rosenbaum DO Work Phone: [facility] Work Phone: Payers Date Payer Category Payer Unknown [id number] 2024 Self-pay [id number] 2024 Private Health Insurance [id number] 2016 Medicaid [id number] 2016 Unknown SELF PAY INSURANCE [id number] 2015 Medicaid [facility] [id number] 2015-Present [phone] [address] [place] [address] Medicaid [id number] 2015 Medicaid [id number] 1981 Unknown [id number] Unknown [id number] Unknown [id number] Unknown [id number] Unknown [id number] Unknown [id number] Unknown [id number] Unknown [id number] Unknown [id number] Unknown [id number] Unknown [id number] Social History Date Type Detail Facility Start: 01-19-2014 End: 12-16-2024 Tobacco smoking status NHIS Ex-smoker [facility] Work Phone: Start: 12-31-2006 End: 12-31-2013 History of tobacco use Current smoker [facility] Work Phone: Start: 01-19-2014 End: 05-23-2023 Cigarettes smoked current (pack per day) - Reported 0.5 [facility] Work Phone: Start: 01-19-2014 End: 10-11-2024 Tobacco use and exposure Smokeless tobacco non-user [facility] Work Phone: Start: 10-30-2021 End: 04-02-2024 Alcohol intake Current non-drinker of alcohol (finding) [facility] Start: 1980 Sex Assigned At Male [facility] Start: 10-03-2021 End: 06-10-2022 Exposure to SARS-CoV-2 (event) Not sure [facility] Start: 03-10-2022 End: 11-28-2023 Tobacco smoking status VAIS Unknown if ever smoked [facility] Start: 03-14-2017 Occasional [facility] Start: 03-14-2017 None [facility] Start: 10-16-2015 Alone [facility] Start: 01-31-2021 Cigarettes [facility] Start: 12-31-2006 End: 12-31-2013 History of tobacco use Cigarette Smoker [facility] Work Phone: Start: 05-13-2022 End: 05-23-2022 Exposure to SARS-CoV-2 (event) Unable to assess [facility] Start: 05-23-2023 End: 07-04-2023 Tobacco use panel [facility] Work Phone: National Score (1-10 0), lower number is lower risk 87 [facility] Work Phone: Start: 09-19-2021 Gender identity Identifies as male gender (finding) [facility] Start: 10-11-2024 End: 11-03-2024 Alcoholic beverage intake Ex-drinker (finding) [facility] Start: 12-21-2024 End: 12-29-2024 Sex Male (finding) [facility] Medical Equipment Procedure Code Equipment Code Equipment Original Text Equipment Identifier Dates [id number], [id number] Start: 12-05-2020 Comment on above: Test blood sugar(s) 1x daily. Dx: Type 2 DM. Insulin: No Test blood sugar(s) 1x times daily. Dx: Type 2 DM - Uncontrolled E11.65 Insulin: No Functional Status Date Assessment Result Facility 03-28-2023 Functional Status Independent [facility] 03-28-2023 Functional Status Up to bathroom [facility] 03-28-2023 Functional Status Standard Safet y ID band on, Call device within reach, Bed in low position, Wheels locked, Phone within reach [facility] 01-11-2015 Are you deaf, or do you have serious difficulty hearing No 01/11/2015 10:12 AM Brittany Sanz LPN No [facility] 01-11-2015 Are you blind, or do you have serious difficulty seeing, even when wearing glasses No 01/11/2015 10:12 AM Brittany Sanz LPN No [facility] 01-11-2015 Do you have serious difficulty walking or climbing stairs No 01/11/2015 10:12 AM Brittany Sanz LPN No [facility] 01-11-2015 Do you have difficul ty dressing or bathing No 01/11/2015 10:12 AM Brittany Sanz LPN No [facility] 01-11-2015 Because of a physica l, mental, or emotional condition, do you have difficulty doing errands alone such as visiting a physician's office or shopping No 01/11/2015 10:12 AM Brittany Sanz LPN No [facility] Mental Status Date Assessment Result Facility 03-28-2023 Mental Status Orientation Oriented x 4 [facility] 03-28-2023 Mental Status [facility] 01-11-2015 Because of a physica l, mental, or emotional condition, do you have serious difficulty concentrating, remembering, or making decisions No 01/11/2015 10:12 AM EDT Brittany Hannon LPN No [facility] Clinical Notes 04-19-2021 to 12-26-2024 Note Date & Type Note Facility 12-26-2024 Radiology Diagnostic study note [facility] Imaging Services [address] [place] [address] ABD Limited w/ Elastography MR#: [id number] Acct: [id number] Name: ANASTACIO POSEY Rep #: [id number] : 1980 M 44 From: Pet er Peer PCP: JEB Landeros Status: REG CLI Study:ABD Limited w/ Elastography Date of Exa m: 12/25/24 Exam# [id number] Ordering Dr: Malini Mckeon PROCEDURE: ABD LIMITED W/ ELASTOGRAPHY 12/25/2024 REASON FOR EXAM: LIVER STEATOSIS TECHNIQUE: Real-time grayscale and Doppler ultrasound and Doppler velocity values were acquired per routine protocol. COMPARISON: None. FINDINGS: Liver is enlarged at 19 cm length. Liver is echogenic indicating steatosis. Nointrahepatic or extrahepatic biliary ductal dilatation. Normal hepatopetal flow knee portal vein. Status post cholecystectomy. Limited pancreatic imaging is unremarkable. Right kidney size and cortical thickness are normal. Right kidney measured 11.6cm L x 6.5 cm AP x 6.1 cm T Elastography measurements: Site a: 9.5 kPa. Site B 8.4 kPa. Site C: 10.2 kPa. Average kPa 9.4. US/ABD Limited w/ Elastography IMPRESSION: Metavir scores fall within the F2-F3 range Reading Location: [facility] CC: JEB Mckeon; JEB Christiansen ~ Post Production Assistant: Signed [facility] 12-08-2024 Evaluation note Diagnosis Onset Date Resolution Hernia of abdominal wall acute December 08, 2024 2:20pm Vomiting bile chronic December 08, 2024 2:20pm Combined abdominal and pelvic pain acute December 16, 2024 9:09am Gastroparesis acute December 16, 2024 9:09am Periumbilical abdominal pain acute December 16, 2024 9:09am Steatosis, liver acute December 162024 9:09am Weight loss acute December 16, 025 9:09am Vomiting bile chronic December 16, 2024 9:09am [facility] Work Phone: [phone]) 675-379103-11-2025 NoteHNO ID: [id number] Author: NAHOMY GARCIA LPN Service: ? Author Type: LICENSED NURSE Type: Progress Notes Filed: 12/08/2024 15:06 Note Text: Reached out to pt to arrange appt and labs for diabtes has last A1c in March 2024 was quite elevalted. Called pt with no answer and unable to leave a voice mail. (The mail box is full) My chart message to pt although last reviewed mychart was 10/11/24.[facility]03-11-2025 History of Present illness Narrative* Nahomy Garcia LPN - 11/30/2024 10:04 AM EDT Reached out to pt to arrange appt and labs for diabtes has last A1c in March 2024 was quite elevalted. Called pt with no answer and unable to leave a voice mail. (The mail box is full) My chart message to pt although last reviewed mychart was 10/11/24. [facility] NotePatient Outreach (INTMWS) ANASTACIO POSEY ([id number]) 1980 M Date Time Provider Department 11/30/24 PRESTON NOVOA During your visit today, we recorded the following information about you: Nahomy Garcia LPN 12/08/2024 3:06 PM Signed Reached out to pt to arrange appt and labs for diabtes has last A1c in March 2024 was quite elevalted. Called pt with no answer and unable to leave a voice mail. (The mail box is full) My chart message to pt although last reviewed mychart was 10/11/24. Allergies As of Date: 11/30/2024 (No Known Allergies) Date Reviewed: 11/03/2024 Reviewed by: Sona Patino MA - Fully Assessed Reason for Visit: Diabetes [34] Prescriptions as of 12/08/2024 - metFORMIN (GLUCOPHAGE) 1,000 mg tablet Take 1 tablet by mouth two times a day with meals. Diabetes. DOSE CHANGE - TAKE ONE WITH BREAKFAST AND DINNER - glimepiride (AMARYL) 4 mg tablet Take 1 tablet by mouth daily with breakfast. - lisinopril (ZESTRIL) 40 mg tablet Take 1 tablet by mouth once daily. - pioglitazone (ACTOS) 15 mg tablet Take 1 tablet by mouth once daily. - metoclopramide HCl (REGLAN) 10 mg tablet Take 1 tablet by mouth four times daily. - atenolol (TENORMIN) 50 mg tablet Take 1 tablet by mouth once daily. - amLODIPine (NORVASC) 10 mg tablet Take 1 tablet by mouth once daily. - dicyclomine (BENTYL) 20 mg tablet Take 1 tablet by mouth before meals and at bedtime. - Blood Pressure Monitor Use as directed. - blood sugar diagnostic (BLOOD GLUCOSE TEST) test strip Test blood sugar(s) 1x daily. Dx: Type 2 DM. Insulin: No - Lancets lancets Test blood sugar(s) 1x times daily. Dx: Type 2 DM - Uncontrolled E11.65 Insulin: No Meds Comments as of 01/16/2016: [facility] Roque. Problem List As Of Date 11/30/2024 Noted Resolved Paranoid schizophrenia (HCC) [F20.0] Hypertension [I10] 04/22/2012 IBS (irritable bowel syndrome) [K58.9] 01/19/2014 01/16/2016 Lumbar disc herniation [M51.26] 05/25/2014 Left knee pain [M25.562] 07/20/2014 01/16/2016 Physical deconditioning [R53.81] 08/09/2014 Well adult exam [Z00.00] 08/29/2014 05/17/2016 DDD (degenerative disc disease), lumbar [M51.36*11/09/2014 Morbid obesity (HCC) [E66.01] 12/29/2014 Lumbago [M54.50] 05/18/2015 Gall stones [K80.20] 08/15/2015 01/16/2016 Incomplete RBBB [I45.10] 08/30/2015 06/10/2022 FLORIAN on CPAP [G47.33] 01/16/2016 Type 2 diabetes mellitus without complication, *11/13/2016 Balanitis [N48.1] 11/25/2016 06/20/2021 Lower urinary tract symptoms (LUTS) [R39.9] 11/25/2016 Early satiety [R68.81] 04/19/2021 04/19/2021 Gastroparesis [K31.84] 06/20/2021 Obesity, Class I, BMI 30-34.9 [E66.811] 08/29/2023 Encounter Status:Closed by NAHOMY GARCIA on 12/08/24[facility] 11-03-2024 NoteHNO ID: [id number] Author: ROSEANN MORTON APRN.[employer] Service: ? Author Type: Nurse Practitioner Type: Progress Notes Filed: 11/03/2024 13:28 Note Text: CC: Patient presents with: Eye Problem: LT eye HPI Anastacio Posey is a 43 year old male who presents today for above. Patient states he developed floaters yesterday in his left eye that looked like blood splatter. The floater continuously moved across his visual field. He had no other symptoms and resolved by this morning. Denies eye pain, vision loss, double vision, eye injury, headache, flashes of light, eye drainage, itching, burning, or gritty feeling. He is diabetic, last eye exam in January 2022. He also reports muffled hearing in both ears. No pain, drainage, recent URI, history of seasonal/environmental allergies. Review of Systems See HPI PAST MEDICAL HISTORY Diagnosis Date Balanitis 11/25/2016 DDD (degenerative disc disease), lumbar 11/09/2014 Hypertension IBS (irritable bowel syndrome) 01/19/2014 Incomplete RBBB Incomplete RBBB Incomplete RBBB 08/30/2015 Lumbago 05/18/2015 chronic Lumbar disc herniation 05/25/2014 Obesity FLORIAN on CPAP 01/16/2016 Paranoid schizophrenia (HCC) with auditory hallucinations, [facility] Primary hypertension Snoring Uncontrolled type 2 diabetes mellitus without complication, without long-term current use of insulin 11/13/2016 PAST SURGICAL HISTORY Procedure Laterality Date ABDOMINAL SURGERY HX COLONOSCOPY FLX DX W/COLLJ SPEC WHEN PFRMD 02/25/2013 ESOPHAGOGASTRODUODENOSCOPY TRANSORAL DIAGNOSTIC 04/19/2021 LAPAROSCOPY SURG CHOLECYSTECTOMY 09/11/2015 ALLERGIES Patient has no known allergies. MEDICATIONS metFORMIN (GLUCOPHAGE) 1,000 mg tablet Take 1 tablet by mouth two times a day with meals. Diabetes. DOSE CHANGE - TAKE ONE WITH BREAKFAST AND DINNER glimepiride (AMARYL) 4 mg tablet Take 1 tablet by mouth daily with breakfast. lisinopril (ZESTRIL) 40 mg tablet Take 1 tablet by mouth once daily. pioglitazone (ACTOS) 15 mg tablet Take 1 tablet by mouth once daily. metoclopramide HCl (REGLAN) 10 mg tablet Take 1 tablet by mouth four times daily. atenolol (TENORMIN) 50 mg tablet Take 1 tablet by mouth once daily. amLODIPine (NORVASC) 10 mg tablet Take 1 tablet by mouth once daily. dicyclomine (BENTYL) 20 mg tablet Take 1 tablet by mouth before meals and at bedtime. Blood Pressure Monitor Use as directed. blood [...] schizophrenia Heart Brother enlarged heart Obesity Brother No Known Problems Maternal Grandmother No Known Problems Maternal Grandfather No Known Problems Paternal Grandmother No Known Problems Paternal Grandfather Ischemic Heart Disease Maternal Uncle Social History Tobacco Use Smoking status: Former Current packs/day: 0.00 Average packs/day: 0.5 packs/day for 7.0 years (3.5 ttl pk-yrs) Types: Cigarettes Start date: 12/31/2006 Quit date: 12/31/2013 Years since quittin.8 Smokeless tobacco: Never Vaping Use Vaping status: Never Used Substance Use Topics Alcohol use: Not Currently Drug use: Never BP 146/100 Pulse 88 Resp 12 Wt 111 kg (244 lb 11.4 oz) SpO2 98% BMI 32.29 kg/m? Physical Exam Vitals reviewed. Constitutional: Appearance: Normal appearance. HENT: Right Ear: There is impacted cerumen. Left Ear: There is impacted cerumen. Eyes: General: Lids are normal. Right eye: No foreign body or discharge. Left eye: No foreign body or discharge. Extraocular Movements: Extraocular movements intact. Conjunctiva/sclera: Conjunctivae normal. Pupils: Pupils are equal, round, and reactive to light. Neurological: Mental Status: He is alert. ASSESSMENT/PLAN: 1. Vitreous floaters of left eye - ICD9: 379.24, ICD10: H43.392 (primary diagnosis) Etiology unclear. No alarm symptoms or exam findings. He is overdue for diabetic eye exam - CONSULT TO OPHTHALMOLOGY for further evaluation 2. Type 2 diabetes mellitus without complication, without long-term current use of insulin (HCC) - ICD9: 250.00, ICD10: E11.9 As above - CONSULT TO OPHTHALMOLOGY 3. Bilateral impacted cerumen - ICD9: 380.4, ICD10: H61.23 Ear lavage successful. Bilateral TM's and canals normal on post assessment - AMBULATORY EAR LAVAGE/IRRIGATION Prescription instructions reviewed with patient as applicable. Potential red flag symptoms discussed with the patient. (more content not included)... [facility]02-12-2025 History of Present illness Narrative* Roseann Morton, [employer] SALES MANAGER.[employer] - 11/03/2024 11:43 AM EST CC: Patient presents with: Eye Problem: LT eye HPI Anastacio Posey is a 43 year old male who presents today for above. Patient states he developed floaters yesterday in his left eye that looked like blood splatter. The floater continuously moved across his visual field. He had no other symptoms and resolved by this morning. Denies eye pain, vision loss, double vision, eye injury, headache, flashes of light, eye drainage, itching, burning, or gritty feeling. He is diabetic, last eye exam in January 2022. He also reports muffled hearing in both ears. No pain, drainage, recent URI, history of seasonal/environmental allergies. Review of Systems See HPI PAST MEDICAL HISTORY Diagnosis Date Balanitis 11/25/2016 DDD (degenerative disc disease), lumbar 11/09/2014 Hypertension IBS (irritable bowel syndrome) 01/19/2014 Incomplete RBBB Incomplete RBBB Incomplete RBBB 08/30/2015 Lumbago 05/18/2015 chronic Lumbar disc herniation 05/25/2014 Obesity FLORIAN on CPAP 01/16/2016 Paranoid schizophrenia (HCC) with auditory hallucinations, [facility] Primary hypertension Snoring Uncontrolled type 2 diabetes mellitus without complication, without long-term current use of insulin 11/13/2016 PAST SURGICAL HISTORY Procedure Laterality Date ABDOMINAL SURGERY HX COLONOSCOPY FLX DX W/COLLJ SPEC WHEN PFRMD 02/25/2013 ESOPHAGOGASTRODUODENOSCOPY TRANSORAL DIAGNOSTIC 04/19/2021 LAPAROSCOPY SURG CHOLECYSTECTOMY 09/11/2015 ALLERGIES Patient has no known allergies. MEDICATIONS metFORMIN (GLUCOPHAGE) 1,000 mg tablet Take 1 tablet by mouth two times a day with meals. Diabetes.DOSE CHANGE - TAKE ONE WITH BREAKFAST AND DINNER glimepiride (AMARYL) 4 mg tablet Take 1 tablet by mouth daily with breakfast. lisinopril (ZESTRIL) 40 mg tablet Take 1 tablet by mouth once daily. pioglitazone (ACTOS) 15 mg tablet Take 1 tablet by mouth once daily. metoclopramide HCl (REGLAN) 10 mg tablet Take 1 tablet by mouth four times daily. atenolol (TENORMIN) 50 mg tablet Take 1 tablet by mouth once daily. amLODIPine (NORVASC) 10 mg tablet Take 1 tablet by mouth once daily. dicyclomine (BENTYL) 20 mg tablet Take 1 tablet by mouth before meals and at bedtime. Blood Pressure Monitor Use as directed. blood sugar diagnostic (BLOOD GLUCOSE TEST) test strip Test blood sugar(s) 1x daily. Dx: Type 2 DM.Insulin: No Lancets lancets Test blood sugar(s) 1x [...] schizophrenia Heart Brother enlarged heart Obesity Brother No Known Problems Maternal Grandmother No Known Problems Maternal Grandfather No Known Problems Paternal Grandmother No Known Problems Paternal Grandfather Ischemic Heart Disease Maternal Uncle Social History Tobacco Use Smoking status: Former Current packs/day: 0.00 Average packs/day: 0.5 packs/day for 7.0 years (3.5 ttl pk-yrs) Types: Cigarettes Start date: 12/31/2006 Quit date: 12/31/2013 Years since quittin.8 Smokeless tobacco: Never Vaping Use Vaping status: Never Used Substance Use Topics Alcohol use: Not Currently Drug use: Never BP 146/100 Pulse 88 Resp 12 Wt 111 kg (244 lb 11.4 oz) SpO2 98% BMI 32.29 kg/m Physical Exam Vitals reviewed. Constitutional: Appearance: Normal appearance. HENT: Right Ear: There is impacted cerumen. Left Ear: There is impacted cerumen. Eyes: General: Lids are normal. Right eye: No foreign body or discharge. Left eye: No foreign body or discharge. Extraocular Movements: Extraocular movements intact. Conjunctiva/sclera: Conjunctivae normal. Pupils: Pupils are equal, round, and reactive to light. Neurological: Mental Status: He is alert. ASSESSMENT/PLAN: 1. Vitreous floaters of left eye - ICD9: 379.24, ICD10: H43.392 (primary diagnosis) Etiology unclear. No alarm symptoms or exam findings. He is overdue for diabetic eye exam - CONSULT TO OPHTHALMOLOGY for further evaluation 2. Type 2 diabetes mellitus without complication, without long-term current use of insulin (HCC) - ICD9: 250.00, ICD10: E11.9 As above - CONSULT TO OPHTHALMOLOGY 3. Bilateral impacted cerumen - ICD9: 380.4, ICD10: H61.23 Ear lavage successful. Bilateral TM's and canals normal on post assessment - AMBULATORY EAR LAVAGE/IRRIGATION Prescription instructions reviewed with patient as applicable. Potential red flag symptoms discussed with the patient. Reviewed appropriate action plan to take if red flag symptoms occur. Patient agreeable to treatment plan. Roseann Morton APRN.CNP Medical Decision Making: Problems: Low: 2+ self-limited or minor problems Risk: Low: Low risk from testing/treatment Medical Decision Making Level: 3 - [facility] NoteHNO ID: [id number] Author: DENYS LANDAVERDE MD Service: ? Author Type: Physician Type: Progress Notes Filed: 10/25/2024 12:30 Note Text: HISTORY AND PHYSICAL Anastacio Posey 1980 REFERRING PHYSICIAN: No ref. provider found CHIEF COMPLAINT: Consult (Umbilical Hernia) HPI: The patient is a 43 year old male with a complaint of abdominal pain. Patient states that this pain is located from his umbilicus going up to his xiphoid area. Was seen at [facility] emergency department on 10/09/2024 he was told that he had a hernia at that time. Patient has a prior history of a laparoscopic cholecystectomy. He is also known to have diabetes and hypertension. He said over the last week he has had periumbilical abdominal discomfort he has had some nausea and vomiting that did not resolve his discomfort. He is not having any fevers. He is not having any diarrhea or melena. He has no previous history of trauma or recent trauma. PAST MEDICAL HISTORY Diagnosis Date Balanitis 11/25/2016 DDD (degenerative disc disease), lumbar 11/09/2014 Hypertension IBS (irritable bowel syndrome) 01/19/2014 Incomplete RBBB Incomplete RBBB Incomplete RBBB 08/30/2015 Lumbago 05/18/2015 chronic Lumbar disc herniation 05/25/2014 Obesity FLORIAN on CPAP 01/16/2016 Paranoid schizophrenia (HCC) with auditory hallucinations, [facility] Primary hypertension Snoring Uncontrolled type 2 diabetes mellitus without complication, without long-term current use of insulin 11/13/2016 PAST SURGICAL HISTORY Procedure Laterality Date ABDOMINAL SURGERY HX COLONOSCOPY FLX DX W/COLLJ SPEC WHEN PFRMD 02/25/2013 ESOPHAGOGASTRODUODENOSCOPY TRANSORAL DIAGNOSTIC 04/19/2021 LAPAROSCOPY SURG CHOLECYSTECTOMY 09/11/2015 Current Outpatient Medications Medication Sig metFORMIN (GLUCOPHAGE) 1,000 mg tablet Take 1 tablet by mouth two times a day with meals. Diabetes. DOSE CHANGE - TAKE ONE WITH BREAKFAST AND DINNER glimepiride (AMARYL) 4 mg tablet Take 1 tablet by mouth daily with breakfast. lisinopril (ZESTRIL) 40 mg tablet Take 1 tablet by mouth once daily. pioglitazone (ACTOS) 15 mg tablet Take 1 tablet by mouth once daily. metoclopramide HCl (REGLAN) 10 mg tablet Take 1 tablet by mouth four times daily. atenolol (TENORMIN) 50 mg tablet Take 1 tablet by mouth once daily. amLODIPine (NORVASC) 10 mg tablet Take 1 tablet by mouth once daily. dicyclomine (BENTYL) 20 mg tablet Take 1 tablet by mouth before meals and at bedtime. Blood Pressure Monitor Use as directed. blood sugar diagnostic (BLOOD GLUCOSE TEST) test strip Test blood sugar(s) 1x daily. Dx: Type 2 DM. Insulin: No Lancets lancets Test blood sugar(s) 1x times daily. Dx: Type 2 DM - Uncontrolled E11.65 Insulin: No iv contrast (will be provided with radiology test) CT ABD/PEL -Inject, intravenously, once for 1 dose.No IV access, insert saline lock prior to the beginning of sedation, infusion, injection of imaging exam. Discontinue saline lock post exam. If Pt. has a central line or IVAD, may access for administration according to line specific nursing protocol. Once exam is complete flush line and de-access according to line specific nursing protocol in the CT contrast administration guidelines link. enteric contrast (will be provided with radiology test) For CT ABD/PEL W IVCON Routine order Administer, As Directed One Time Only, via Oral, Rectal, both Oral and Rectal, Enteric Tube, Stoma or Indwelling Catheter, Enteric Contrast as designated per enteric contrast guidelines No current facility-administered medications for this visit. ALLERGIES: Patient has no known allergies. PERSONAL HISTORY: Social History Tobacco Use Smoking status: Former Current packs/day: 0.00 Average packs/day: 0.5 packs/day for 7.0 years (3.5 ttl pk-yrs) Types: Cigarettes Start date: 12/31/2006 Quit date: 12/31/2013 Years since quittin.7 Smokeless tobacco: Never Vaping Use Vaping status: Never Used Substance Use Topics Alcohol use: Not Currently Drug use: Never FAMILY HISTORY: FAMILY HISTORY Problem Relation Age of Onset Heart Mother Atrial fibrilation Thyroid Mother hypothyroidism Lipids Mother high cholesterol Hypertension Father Diabetes Father Obesity Father Asthma Sister Hypertension Sister Thyroid Sister hypothyroidism Cancer Sister Lipids Sister Obesity Sister Tics Brother Psychiatry Brother schizophrenia Heart Brother enlarged heart Obesity Brother No Known Problems Maternal Grandmother No Known Problems Maternal Grandfather No Known Problems Paternal Grandmother No Known Problems Paternal Grandfather Ischemic Heart Disease Maternal Uncle REVIEW OF SYMPTOMS: The review of systems data was entered by the nurse and reviewed by me There are no exam notes on file for this visit. PHYSICAL EXAMINATION: General: The patient is 43 year old male, well nourished, well h (more content not included)...[facility]01-20[facility]2025 History of Present illness Narrative* Denys Landaverde MD - 10/11/2024 2:34 PM EST HISTORY AND PHYSICAL Anastacio Posey 1980 REFERRING PHYSICIAN: No ref. provider found CHIEF COMPLAINT: Consult (Umbilical Hernia) HPI: The patient is a 43 year old male with a complaint of abdominal pain. Patient states that thispain is located from his umbilicus going up to his xiphoid area. Was seen at [facility]'s emergency department on 10/09/2024 he was told that he had a hernia at that time. Patient has a prior history of a laparoscopic cholecystectomy. He is also known to have diabetes and hypertension. He said over the last week he has had periumbilical abdominal discomfort he has had some nausea and vomiting that did not resolve his discomfort. He is not having any fevers. He is nothaving any diarrhea or melena. He has no previous history of trauma or recent trauma. PAST MEDICAL HISTORY Diagnosis Date Balanitis 11/25/2016 DDD (degenerative disc disease), lumbar 11/09/2014 Hypertension IBS (irritable bowel syndrome) 01/19/2014 Incomplete RBBB Incomplete RBBB Incomplete RBBB 08/30/2015 Lumbago 05/18/2015 chronic Lumbar disc herniation 05/25/2014 Obesity FLORIAN on CPAP 01/16/2016 Paranoid schizophrenia (HCC) with auditory hallucinations, [facility] Primary hypertension Snoring Uncontrolled type 2 diabetes mellitus without complication, without long-term current use of insulin 11/13/2016 PAST SURGICAL HISTORY Procedure Laterality Date ABDOMINAL SURGERY HX COLONOSCOPY FLX DX W/COLLJ SPEC WHEN PFRMD 02/25/2013 ESOPHAGOGASTRODUODENOSCOPY TRANSORAL DIAGNOSTIC 04/19/2021 LAPAROSCOPY SURG CHOLECYSTECTOMY 09/11/2015 Current Outpatient Medications Medication Sig metFORMIN (GLUCOPHAGE) 1,000 mg tablet Take 1 tablet by mouth two times a day with meals. Diabetes.DOSE CHANGE - TAKE ONE WITH BREAKFAST AND DINNER glimepiride (AMARYL) 4 mg tablet Take 1 tablet by mouth daily with breakfast. lisinopril (ZESTRIL) 40 mg tablet Take 1 tablet by mouth once daily. pioglitazone (ACTOS) 15 mg tablet Take 1 tablet by mouth once daily. metoclopramide HCl (REGLAN) 10 mg tablet Take 1 tablet by mouth four times daily. atenolol (TENORMIN) 50 mg tablet Take 1 tablet by mouth once daily. amLODIPine (NORVASC) 10 mg tablet Take 1 tablet by mouth once daily. dicyclomine (BENTYL) 20 mg tablet Take 1 tablet by mouth before meals and at bedtime. Blood Pressure Monitor Use as directed. blood sugar diagnostic (BLOOD GLUCOSE TEST) test strip Test blood sugar(s) 1x daily. Dx: Type 2 DM.Insulin: No Lancets lancets Test blood sugar(s) 1x times daily. Dx: Type 2 DM - Uncontrolled E11.65 Insulin: No iv contrast (will be provided with radiology test) CT ABD/PEL -Inject, intravenously, once for 1 dose.No IV access, insert saline lock prior to the beginning of sedation, infusion, injection of imaging exam. Discontinue saline lock post exam. If Pt. has a central line or IVAD, may access for administration according to line specific nursing protocol. Once exam is complete flush line and de-accessaccording to line specific nursing protocol in the CT contrast administration guidelines link. enteric contrast (will be provided with radiology test) For CT ABD/PEL W IVCON Routine order Administer, As Directed One Time Only, via Oral, Rectal, both Oral and Rectal, Enteric Tube, Stoma or Indwelling Catheter, Enteric Contrast as designated per enteric contrast guidelines No current facility-administered medications for this visit. ALLERGIES: Patient has no known allergies. PERSONAL HISTORY: Social History Tobacco Use Smoking status: Former Current packs/day: 0.00 Average packs/day: 0.5 packs/day for 7.0 years (3.5 ttl pk-yrs) Types: Cigarettes Start date: 12/31/2006 Quit date: 12/31/2013 Years since quittin.7 Smokeless tobacco: Never Vaping Use Vaping status: Never Used Substance Use Topics Alcohol use: Not Currently Drug use: Never FAMILY HISTORY: FAMILY HISTORY Problem Relation Age of Onset Heart Mother Atrial fibrilation Thyroid Mother hypothyroidism Lipids Mother high cholesterol Hypertension Father Diabetes Father Obesity Father Asthma Sister Hypertension Sister Thyroid Sister hypothyroidism Cancer Sister Lipids Sister Obesity Sister Tics Brother Psychiatry Brother schizophrenia Heart Brother enlarged heart Obesity Brother No Known Problems Maternal Grandmother No Known Problems Maternal Grandfather No Known Problems Paternal Grandmother No Known Problems Paternal Grandfather Ischemic Heart Disease Maternal Uncle REVIEW OF SYMPTOMS: The review of systems data was entered by the nurse and reviewed by me There are no exam notes on file for this visit. PHYSICAL EXAMINATION: General: The patient is 43 year old male, well nourished, well hydrated in no acute distress. The patient is oriented to time, place, and person. VITALS: Blood pressure 166/110, pulse 104, temperature 36.9 C (98.4 F), temperature source Temporal, resp. rate 14, height 185.4 cm (6' 1), weight 106.6 kg (235 lb), SpO2 100%. HEENT: Normal cephalic, ataumatic, pupils are equally round, sclera are anicteric, mucous membranesare moist, oropharynx is clear. Neck has no masses, asymmetry or lymphadenopathy. Thyroid is unremarkable. Respiratory: Clear to auscultation and percussion. Normal respiratory excursion and pattern. Cardiac: Examination is regular rate and rhythm. Abdominal exam: Soft, nontender, with no palpable masses. No hepatosplenomegaly. No palpable hernias. Patient has a diastases recti and some discomfort around the periumbilical area no rebound guarding or peritoneal signs are identified Rectal exam: exam deferred Extremities: no clubbing, cyanosis or edema. No adenopathy. Other: LABORATORY VALUES: As Noted RADIOLOGIC STUDIES: As Noted Assessment IMPRESSION: Pain of upper abdomen (primary encounter diagnosis) Diastasis recti PLAN: I am going to order a CAT scan of the abdomen and pelvis with IV and p.o. contrast he will need to be off of his metformin for 2 days prior to having this CAT scan done and he will need to drink more water to stay well-hydrated. In addition I will obtain a creatinine level on him. Diagnoses: (R10.10) Pain of upper abdomen (primary encounter diagnosis) (M62.08) Diastasis recti My findings have been communicated to Dr. Preston Novoa MD via shared medical record. This note will be forwarded to Dr. Preston Novoa MD. Return to Clinic: The patient is instructed to follow-up with me after the testing has been completed. Denys Landaverde III, MD * Jocelyn BourneVANDANA - 10/11/2024 2:00 PM EST REVIEW OF SYSTEMS: General: The patient denies fatigue, denies weight loss, denies weight gain, denies feeling hot, and denies feelings of cold. Eyes: The patient denies glaucoma, denies eye injury/surgery, does not wear glasses or contacts. Ear/Nose/Throat: The patient denies allergies, denies hayfever, denies ear infections, and denies bloody noses. Cardiovascular: The patient denies chest pain, denies heart disease, denies high blood pressure,denies cardiac stent, denies prior heart attack, denies irregular heart beat, denies high cholesterol, denies poor circulation, denies heart failure, other cardiac issues, denies claudication, denies cold feet, denies peripheral arterial stent. Respiratory: The patient denies tuberculosis, denies pneumonia, denies frequent cough, denies pulmonary embolism, denies shortness of breath, and denies coughing up blood. Gastrointestinal: The patient denies difficulty swallowing, denies acid reflux, denies ulcers, denies vomiting, denies jaundice/hepatitis, denies gallbladder problems, denies black or tarry stools, denies hemorrhoids, denies bleeding from rectum, denies diverticulitis, denies constipation, denies diarrhea, denies loss of stool control, and denies hernias. Kidney/Bladder: The patient denies kidney stones, denies urine infections, and denies bloody urine. Skin: The patient denies a history of skin cancer, denies bleeding/changing moles, and denies a history of skin rash. Neurologic: The patient denies a history of epilepsy/convulsions, denies headaches, denies head/spinal injuries, and denies stroke/TIA. Psychiatric: The patient denies psychiatric medications, denies depression, and denies voices, denies substance abuse. Endocrine: The patient denies thyroid disorders, notes diabetes, and denies hormonal problems. Hematologic: The patient denies a history of bruising, denies bleeding, and denies anemia, denies blood clots. Infections: The patient denies a history of measles and mumps, denies rheumatic fever, and denies sexually transmitted diseases. Musculoskeletal: The patient denies back pain/injury, notes back problems, denies sciatica, denies knee/foot trouble, denies arthritis, or denies gout. When was patient's last Mammogram screening? N/A Last Colonoscopy: 02/25/2013 oJcelyn Bourne LPN [facility] NoteHNO ID: [id number] Author: JOCELYN BOURNE LPN Service: ? Author Type: LICENSED NURSE Type: Progress Notes Filed: 10/25/2024 12:30 Note Text: REVIEW OF SYSTEMS: General: The patient denies fatigue, denies weight loss, denies weight gain, denies feeling hot, and denies feelings of cold. Eyes: The patient denies glaucoma, denies eye injury/surgery, does not wear glasses or contacts. Ear/Nose/Throat: The patient denies allergies, denies hayfever, denies ear infections, and denies bloody noses. Cardiovascular: The patient denies chest pain, denies heart disease, denies high blood pressure,denies cardiac stent, denies prior heart attack, denies irregular heart beat, denies high cholesterol, denies poor circulation, denies heart failure, other cardiac issues, denies claudication, denies cold feet, denies peripheral arterial stent. Respiratory: The patient denies tuberculosis, denies pneumonia, denies frequent cough, denies pulmonary embolism, denies shortness of breath, and denies coughing up blood. Gastrointestinal: The patient denies difficulty swallowing, denies acid reflux, denies ulcers, denies vomiting, denies jaundice/hepatitis, denies gallbladder problems, denies black or tarry stools, denies hemorrhoids, denies bleeding from rectum, denies diverticulitis, denies constipation, denies diarrhea, denies loss of stool control, and denies hernias. Kidney/Bladder: The patient denies kidney stones, denies urine infections, and denies bloody urine. Skin: The patient denies a history of skin cancer, denies bleeding/changing moles, and denies a history of skin rash. Neurologic: The patient denies a history of epilepsy/convulsions, denies headaches, denies head/spinal injuries, and denies stroke/TIA. Psychiatric: The patient denies psychiatric medications, denies depression, and denies voices, denies substance abuse. Endocrine: The patient denies thyroid disorders, notes diabetes, and denies hormonal problems. Hematologic: The patient denies a history of bruising, denies bleeding, and denies anemia, denies blood clots. Infections: The patient denies a history of measles and mumps, denies rheumatic fever, and denies sexually transmitted diseases. Musculoskeletal: The patient denies back pain/injury, notes back problems, denies sciatica, denies knee/foot trouble, denies arthritis, or denies gout. When was patient's last Mammogram screening? N/A Last Colonoscopy: 02/25/2013 Jocelyn Bourne [facility]07-12-2024 NoteHNO ID: [id number] Author: EVELYNE CHRISTIANSEN APRN.[employer] Service: ? Author Type: Nurse Practitioner Type: Progress Notes Filed: 04/02/2024 09:24 Note Text: SUBJECTIVE Anastacio Posey is a 43 year old male here today for a check up on his medical problems. Chief Complaint Patient presents with: Edema: left lower leg/ankle x 1 week warm feeling and painful when walks on it HPI Anastacio Posey is a 43 year old male. He is an established patient of Preston Novoa MD. Here today for a follow up from , seen in on 03/30 and diagnosed with cellulitis in the left leg, started on Keflex, ultrasound negative for DVT. Still with some swelling, tenderness and redness to the area on the left lower leg. Today he states it is staying the same, not worse but not better. Has only had a few days of the Keflex. Also has HTN and DM. Not checking blood pressure or blood sugars. His medications were reviewed today and his list is now up to date. Medications Current Outpatient Medications Medication Sig cephALEXin (KEFLEX) 500 mg capsule Take 1 capsule by mouth four times daily for 5 days. metFORMIN (GLUCOPHAGE) 1,000 mg tablet Take 1 tablet by mouth two times a day with meals. Diabetes. DOSE CHANGE - TAKE ONE WITH BREAKFAST AND DINNER glimepiride (AMARYL) 4 mg tablet Take 1 tablet by mouth daily with breakfast. lisinopril (ZESTRIL) 40 mg tablet Take 1 tablet by mouth once daily. pioglitazone (ACTOS) 15 mg tablet Take 1 tablet by mouth once daily. metoclopramide HCl (REGLAN) 10 mg tablet Take 1 tablet by mouth four times daily. atenolol (TENORMIN) 50 mg tablet Take 1 tablet by mouth once daily. amLODIPine (NORVASC) 10 mg tablet Take 1 tablet by mouth once daily. dicyclomine (BENTYL) 20 mg tablet Take 1 tablet by mouth before meals and at bedtime. Blood Pressure Monitor Use as directed. blood [...] priority) Comment: with auditory hallucinations, [facility] - [facility]18[facility]2015 (D priority) Comment: chronic Obesity, [...] Types: Cigarettes Quit date: 12/31/2013 Years since quittin.2 Smokeless tobacco: Never Substance Use Topics Alcohol use: No Drug use: No Review of Systems Constitutional: Negative. Respiratory: Negative. Cardiovascular: Positive for leg swelling. Negative for chest pain and palpitations. OBJECTIVE BP 160/100 Pulse 68 Resp 14 Ht 6' 0 (1.83m) Wt 250 lb (113.4kg) SpO2 99% BMI 33.90 kg/(m2). Physical Exam Vitals and [...] Capillary refill takes less than 2 seconds. Comments: Light erythema to the anterior lower leg medially. Slight edema, slight tenderness. Neurological: General: No focal deficit present. Mental Status: He is alert and oriented to person, place, and time. Mental status is at baseline. Psychiatric: Attention and Perception: Attention and perception normal. Mood and Affect: Mood and affect normal. Speech: Speech normal. Behavior: Behavior normal. Behavior is cooperative. Thought Content: Thought content normal. Cognition and Memory: Cognition and memory (more content not included)... [facility]07-12-2024 History of Present illness Narrative* Evelyne Christiansen APRN.[employer] - 04/02/2024 8:28 AM EDT Images from the original note were not included. SUBJECTIVE Anastacio Posey is a 43 year old male here today for a check up on his medical problems. Chief Complaint Patient presents with: Edema: left lower leg/ankle x 1 week warm feeling and painful when walks on it HPI Anastacio Posey is a 43 year old male. He is an established patient of Preston Novoa MD. Here today for a follow up from , seen in on 03/30 and diagnosed with cellulitis in the left leg, started on Keflex, ultrasound negative for DVT. Still with some swelling, tenderness and redness to the area on the left lower leg. Today he states it is staying the same, not worse but not better. Has only had a few days of the Keflex. Also has HTN and DM. Not checking blood pressure or blood sugars. His medications were reviewed today and his list is now up to date. Medications Current Outpatient Medications Medication Sig cephALEXin (KEFLEX) 500 mg capsule Take 1 capsule by mouth four times daily for 5 days. metFORMIN (GLUCOPHAGE) 1,000 mg tablet Take 1 tablet by mouth two times a day with meals. Diabetes.DOSE CHANGE - TAKE ONE WITH BREAKFAST AND DINNER glimepiride (AMARYL) 4 mg tablet Take 1 tablet by mouth daily with breakfast. lisinopril (ZESTRIL) 40 mg tablet Take 1 tablet by mouth once daily. pioglitazone (ACTOS) 15 mg tablet Take 1 tablet by mouth once daily. metoclopramide HCl (REGLAN) 10 mg tablet Take 1 tablet by mouth four times daily. atenolol (TENORMIN) 50 mg tablet Take 1 tablet by mouth once daily. amLODIPine (NORVASC) 10 mg tablet Take 1 tablet by mouth once daily. dicyclomine (BENTYL) 20 mg tablet Take 1 tablet by mouth before meals and at bedtime. Blood Pressure Monitor Use as directed. blood sugar diagnostic (BLOOD GLUCOSE TEST) test strip Test blood sugar(s) 1x daily. Dx: Type 2 DM.Insulin: No Lancets lancets Test blood sugar(s) 1x times daily. Dx: Type 2 DM - Uncontrolled E11.65 Insulin: No No current facility-administered medications for this visit. 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Hcc) (A priority) Comment: with auditory hallucinations, [facility]18[facility]2015 (D priority) Comment: chronic Obesity, Class I, Bmi 30-34.9 - 08/29/2023 Gastroparesis - 06/20/2021 Lower Urinary Tract Symptoms (Luts) - 11/25/2016 Type 2 Diabetes Mellitus Without Complication, Without Long-Term Current Use of Insulin ([facility]) - 11/13/2016 Florian On Cpap - 01/16/2016 Morbid Obesity (Hcc) - 12/29/2014 Ddd (Degenerative Disc Disease), Lumbar - 11/09/2014 Physical Deconditioning - 08/09/2014 Lumbar Disc Herniation - 05/25/2014 Social History Tobacco Use Smoking status: Former Packs/day: 0.50 Years: 7.00 Additional pack years: 0.00 Total pack years: 3.50 Types: Cigarettes Quit date: 12/31/2013 Years since quittin.2 Smokeless tobacco: Never Substance Use Topics Alcohol use: No Drug use: No Review of Systems Constitutional: Negative. Respiratory: Negative. Cardiovascular: Positive for leg swelling. Negative for chest pain and palpitations. OBJECTIVE BP 160/100 Pulse 68 Resp 14 Ht 6' 0 (1.83m) Wt 250 lb (113.4kg) SpO2 99% BMI 33.90 kg/(m^2). Physical Exam Vitals and nursing note reviewed. [...] Capillary refill takes less than 2 seconds. Comments: Light erythema to the anterior lower leg medially. Slight edema, slight tenderness. Neurological: General: No focal deficit present. Mental [...] memory normal. Judgment: Judgment normal. ASSESSMENT/PLAN: 1. Cellulitis of left lower extremity - ICD9: 682.6, ICD10: L03.116 (primary diagnosis) - Continue treatment with Cephalaxin (Keflex), extend out total 10 days of therapy. - No lymphangetic streaking, this was defined for patient to watch for and to seek medical care immediately if appears - Area of cellulitis defined, seek further attention if this area continues to enlarge 2. Type 2 diabetes mellitus with hyperglycemia, without long-term current use of insulin (HCC) - ICD9: 250.00, 790.29, ICD10: E11.65 - Control undetermined, due for labs, concern of prior high hgba1c - Counseled on healthy diet and regular exercise - Discussed need for and benefit of weight loss. BMI 33.91 kg/(m^2) - Discussed diabetic education issues of diabetes complications and monitoring required - Follow up in 3 weeks, sooner should any other issues arise. - Concerns of medication compliance, he states he is taking medications daily but adherence reportsreflect no recent fills on prescriptions. Cost is also a concern since he is self pay. Start Actos,continue metformin and glimepiride and stop the Januvia and Jardiance for cost concerns. - HEMOGLOBIN A1C - LIPID PANEL, NONFASTING - METFORMIN 1,000 MG TABLET - GLIMEPIRIDE 4 MG TABLET - LISINOPRIL 40 MG TABLET - PIOGLITAZONE 15 MG TABLET 3. Primary hypertension - ICD9: 401.9, ICD10: I10 - Uncontrolled - Factors affecting control: compliance with medications, diet adherence. - Recommend home blood pressure monitoring, to bring results to next visit - Encouraged sodium restriction, DASH or Mediterranean diet - Recommend regular aerobic exercise - LISINOPRIL 40 MG TABLET 4. Problems related to health literacy - ICD9: V49.89, ICD10: Z55.6 Concerns of understanding, spent time educating. 5. Encounter for therapeutic drug monitoring - ICD9: V58.83, ICD10: Z51.81 - COMPLETE BLOOD COUNT AND DIFFERENTIAL - COMPREHENSIVE METABOLIC PANEL Portions of this note have been entered by ancillary staff. I have reviewed and when necessary edited, so that they are an adequate record of my encounter with this patient Please note that parts of this document were created using voice recognition software and therefore may contain grammatical errors. Patient verbalizes understanding of instructions from today's visit and in agreement with treatmentplan. Questions answered. Agrees to call the office [...] as well as compliance with taking medications. Age- appropriate health preventative measures were discussed. Return in about 3 weeks (around 04/23/2024) for recheck HTN. AAKASH Landeros [facility] Telephone encounter Note * Telephone Encounter - Miguel Angel Mehta MA - 04/01/2024 7:58 AM EDT Left VM instructing patient to return call to receive results. Patient has follow up appt with Shankar scheduled for 04/02 for leg swelling, and has viewed ultrasound results via [facility]. [facility] patient has picked up Keflex as of 03/30. Miguel Angel Mehta MA [facility]07-11-2024 Miscellaneous Notes* Telephone Encounter - Miguel Angel Mehta MA - 04/01/2024 7:58 AM EDT Left VM instructing patient to return call to receive results. Patient has follow up appt with Shankar scheduled for 04/02 for leg swelling, and has viewed ultrasound results via [employer]. Spoke with [facility] pharmacy, patient has picked up Keflex as of 03/30. Miguel Angel Mehta MA * Telephone Encounter - Polly Tesfaye MA - 03/31/2024 8:06 AM EDT Left message for pt to call back. Polly Tesfaye MA * Telephone Encounter - Carito Key APRN.CNP - 03/30/2024 11:10 AM EDT US negative Attempted to call patient Would like to inform of negative results We will then treat as a cellulitis, RX called in [facility] F/U with PCP Requested return call. If no return call by evening of 03/30/24 Please attempt to call again. [facility] Telephone encounter Note * Telephone Encounter - Polly Tesfaye MA - 03/31/2024 8:06 AM EDT Left message for pt to call back. Polly Tesfaye MA [facility]07-09-20[facility] Telephone encounter Note* Telephone Encounter - Carito Key APRN.CNP - 03/30/2024 11:10 AM EDT US negative Attempted to call patient Would like to inform of negative results We will then treat as a cellulitis, RX called in [facility] F/U with PCP Requested return call. If no return call by evening of 03/30/24 Please attempt to call again. [facility] NoteHNO ID: [id number] Author: CARITO KEY APRN.[employer] Service: ? Author Type: Nurse Practitioner Type: Progress Notes Filed: 03/30/2024 11:16 Note Text: This note was created using NoteWriter. Subjective Anastacio Posey is a 43 year old male. 43 year old male with PMH HTN, FLORIAN, IBS, DM and DDD presents for left lower leg complaints. Acute onset 5 days ago Left lower extremity Woke up with diffuse +swelling and tenderness Denies trauma or injury Denies known insect bite Denies fever or chills Denies numbness or tingling Denies CP Denies SOB or dyspnea Of note, he was on vacation recently and states lengthy periods of sitting in car. Denies prior history of DVT/PE Denies tobacco usage The history is provided by the patient. No spanish interpreter was used. Musculoskeletal Problem This is a new problem. The current episode started in the past 7 days. The problem occurs constantly. The problem has been gradually worsening. Pertinent negatives include no abdominal pain, anorexia, arthralgias, change in bowel habit, chest pain, chills, congestion, coughing, diaphoresis, fatigue, fever, headaches, joint swelling, myalgias, nausea, neck pain, numbness, rash, sore throat, swollen glands, urinary symptoms, vertigo, visual change, vomiting or weakness. Exacerbated by: walking, touching and bearing weight. He has tried nothing for the symptoms. The treatment provided no relief. PAST MEDICAL HISTORY Diagnosis Date Balanitis 11/25/2016 DDD (degenerative disc disease), lumbar 11/09/2014 Hypertension IBS (irritable bowel syndrome) 01/19/2014 Incomplete RBBB Incomplete RBBB Incomplete RBBB 08/30/2015 Lumbago 05/18/2015 chronic Lumbar disc herniation 05/25/2014 [...] ALLERGIES Patient has no known allergies. MEDICATIONS empagliflozin (JARDIANCE) 25 mg tablet Take 1 tablet by mouth daily with breakfast. SITagliptin phosphate (JANUVIA) 100 mg tablet Take 1 tablet by mouth once daily. metoclopramide HCl (REGLAN) 10 mg tablet Take 1 tablet by mouth four times daily. atenolol (TENORMIN) 50 mg tablet Take 1 tablet by mouth once daily. glimepiride (AMARYL) 4 mg tablet Take 1 [...] by mouth before meals and at bedtime. Blood Pressure Monitor Use as directed. blood sugar diagnostic (BLOOD GLUCOSE TEST) test strip Test blood sugar(s) 1x daily. Dx: Type 2 DM. Insulin: No Lancets lancets Test blood sugar(s) 1x times daily. Dx: Type 2 DM - Uncontrolled E11.65 Insulin: No cephALEXin (KEFLEX) 500 mg capsule Take 1 capsule by mouth four times daily for 5 days. FAMILY HISTORY Problem Relation Age of Onset [...] Types: Cigarettes Quit date: 12/31/2013 Years since quittin.2 Smokeless tobacco: Never Substance Use Topics Alcohol use: No Drug use: No Review of Systems Constitutional: Negative for chills, diaphoresis, fatigue and fever. HENT: Negative for congestion and sore throat. Eyes: Negative for pain, discharge and itching. Respiratory: Negative for apnea, cough, choking and chest tightness. Cardiovascular: Negative for chest pain. Gastrointestinal: Negative for abdominal pain, anorexia, change in bowel habit, diarrhea, nausea and vomiting. Musculoskeletal: Negative for arthralgias, joint swelling, myalgias and neck pain. Leg swelling and pain Skin: Negative for rash. Allergic/Immunologic: Negative for environmental allergies, food allergies and immunocompromised state. Neurological: Negative for vertigo, weakness, numbness and headaches. Hematological: Negative for adenopathy. Does (more content not included)... [facility]07-09-2024 History of Present illness Narrative* Carito Key APRN.[employer] - 03/30/2024 10:11 AM EDT This note was created using Cipioriter. Subjective Anastacio Posey is a 43 year old male. 43 year old male with PMH HTN, FLORIAN, IBS, DM and DDD presents for left lower leg complaints. Acute onset 5 days ago Left lower extremity Woke up with diffuse +swelling and tenderness Denies trauma or injury Denies known insect bite Denies fever or chills Denies numbness or tingling Denies CP Denies SOB or dyspnea Of note, he was on vacation recently and states lengthy periods of sitting in car. Denies prior history of DVT/PE Denies tobacco usage The history is provided by the patient. No spanish interpreter was used. Musculoskeletal Problem This is a new problem. The current episode started in the past 7 days. The problem occurs constantly. The problem has been gradually worsening. Pertinent negatives include no abdominal pain, anorexia, arthralgias, change in bowel habit, chest pain, chills, congestion, coughing, diaphoresis, fatigue, fever, headaches, joint swelling, myalgias, nausea, neck pain, numbness, rash, sore throat, swollen glands, urinary symptoms, vertigo, visual change, vomiting or weakness. Exacerbated by: walking, touching and bearing weight. He has tried nothing for the symptoms. The treatment provided no relief. PAST MEDICAL HISTORY Diagnosis Date Balanitis 11/25/2016 DDD (degenerative disc disease), lumbar 11/09/2014 Hypertension IBS (irritable bowel syndrome) 01/19/2014 Incomplete RBBB Incomplete RBBB Incomplete RBBB 08/30/2015 Lumbago 05/18/2015 chronic Lumbar disc herniation 05/25/2014 [...] ALLERGIES Patient has no known allergies. MEDICATIONS empagliflozin (JARDIANCE) 25 mg tablet Take 1 tablet by mouth daily with breakfast. SITagliptin phosphate (JANUVIA) 100 mg tablet Take 1 tablet by mouth once daily. metoclopramide HCl (REGLAN) 10 mg tablet Take 1 tablet by mouth four times daily. atenolol (TENORMIN) 50 mg tablet Take 1 tablet by mouth once daily. glimepiride (AMARYL) 4 mg tablet Take 1 tablet by mouth daily with breakfast. amLODIPine (NORVASC) 10 mg tablet Take 1 tablet by mouth once daily. lisinopril (ZESTRIL) 40 mg tablet Take 1 tablet by mouth once daily. metFORMIN (GLUCOPHAGE) 1,000 mg tablet Take 1 tablet by mouth two times a day with meals. Diabetes.DOSE CHANGE - TAKE ONE WITH BREAKFAST AND DINNER dicyclomine (BENTYL) 20 mg tablet Take 1 tablet by mouth before meals and at bedtime. Blood Pressure Monitor Use as directed. blood sugar diagnostic (BLOOD GLUCOSE TEST) test strip Test blood sugar(s) 1x daily. Dx: Type 2 DM.Insulin: No Lancets lancets Test blood sugar(s) 1x times daily. Dx: Type 2 DM - Uncontrolled E11.65 Insulin: No cephALEXin (KEFLEX) 500 mg capsule Take 1 capsule by mouth four times daily for 5 days. FAMILY HISTORY Problem Relation Age of Onset [...] Types: Cigarettes Quit date: 12/31/2013 Years since quittin.2 Smokeless tobacco: Never Substance Use Topics Alcohol use: No Drug use: No Review of Systems Constitutional: Negative for chills, diaphoresis, fatigue and fever. HENT: Negative for congestion and sore throat. Eyes: Negative for pain, discharge and itching. Respiratory: Negative for apnea, cough, choking and chest tightness. Cardiovascular: Negative for chest pain. Gastrointestinal: Negative for abdominal pain, anorexia, change in bowel habit, diarrhea, nausea and vomiting. Musculoskeletal: Negative for arthralgias, joint swelling, myalgias and neck pain. Leg swelling and pain Skin: Negative for rash. Allergic/Immunologic: Negative for environmental allergies, food allergies and immunocompromised state. Neurological: Negative for vertigo, weakness, numbness and headaches. Hematological: Negative for adenopathy. Does not bruise/bleed easily. Psychiatric/Behavioral: Negative for agitation and behavioral problems. Objective BP 158/90 Pulse 64 Temp 36.6 C (97.8 F) (Tympanic) Resp 16 Wt 114.7 kg (252 lb 13.9 oz) SpO2 97% BMI 34.29 kg/m Physical Exam Vitals and nursing note reviewed. Constitutional: General: He is not in acute distress. Appearance: Normal appearance. He is not ill-appearing, toxic-appearing or diaphoretic. HENT: Head: Normocephalic and atraumatic. Right Ear: External ear normal. Left Ear: External ear normal. Nose: Nose normal. No congestion or rhinorrhea. Mouth/Throat: Mouth: Mucous membranes are moist. Pharynx: Oropharynx is clear. No oropharyngeal exudate or posterior oropharyngeal erythema. Eyes: General: Right eye: No discharge. Left eye: No discharge. Extraocular Movements: Extraocular movements intact. Conjunctiva/sclera: Conjunctivae normal. Pupils: Pupils are equal, round, and reactive to light. Cardiovascular: Rate and Rhythm: Normal rate and regular rhythm. Pulses: Normal pulses. Heart sounds: Normal heart sounds. No murmur heard. No friction rub. No gallop. Pulmonary: Effort: Pulmonary effort is normal. No respiratory distress. Breath sounds: Normal breath sounds. No stridor. No wheezing, rhonchi or rales. Chest: Chest wall: No tenderness. Abdominal: General: Abdomen is flat. There is no distension. Palpations: Abdomen is soft. There is no mass. Tenderness: There is no abdominal tenderness. There is no guarding or rebound. Hernia: No hernia is present. Musculoskeletal: General: No swelling, tenderness, deformity or signs of injury. Normal range of motion. Cervical back: Normal range of motion and neck supple. No rigidity or tenderness. Right lower leg: No edema. Left lower leg: No edema. Comments: Left lower extremity with diffuse swelling and tenderness to palpation noted from mid calf down through foot. Superficial abrasion noted to anterior mid thigh. Mild erythema No abscess. No red streaking No drainage +neuro +sensation Lymphadenopathy: Cervical: No cervical adenopathy. Skin: General: Skin is warm and dry. Capillary Refill: Capillary refill takes less than 2 seconds. Coloration: Skin is not jaundiced or pale. Findings: No bruising, lesion or rash. Neurological: General: No focal deficit present. Mental Status: He is alert and oriented to person, place, and time. Cranial Nerves: No cranial nerve deficit. Sensory: No sensory deficit. Motor: No weakness. Coordination: Coordination normal. Gait: Gait normal. Deep Tendon Reflexes: Reflexes normal. Psychiatric: Mood and Affect: Mood normal. Behavior: Behavior normal. Thought Content: Thought content normal. Assessment and Plan ASSESSMENT/PLAN: 1. Pain and swelling of left lower leg - ICD9: 729.5, 729.81, ICD10: M79.662, M79.89 X 5 days No injury +swelling and redness DVT vs. Cellulitis - US LEG VEIN DVT UNL VAS LAB-negative 2. Cellulitis of left lower leg - ICD9: 682.6, ICD10: L03.116 - Begin treatment with Cephalaxin (Keflex) - No lymphangetic streaking, this was defined for patient to watch for and to seek medical care immediately if appears - Follow up for recheck in two days - Please see phone encounter where notification attempts made to patient. Carito Key APRN.[employer]AD documented [facility] this [facility] Telephone encounter Note * Telephone Encounter - Merle Tamayo - 02/09/2024 8:56 AM EDT Telephoned the patient to schedule Primary Care pharmacy appt. Left a message and sending a MyChartmessage. When the patient returns the call, an appt will be schedule. Routing encounter to clinical pharmacist. [facility] Miscellaneous Notes* Telephone Encounter - FerraroMerle Garner - 02/09/2024 8:56 AM EDT Telephoned the patient to schedule Primary Care pharmacy appt. Left a message and sending a MyChartmessage. When the patient returns the call, an appt will be schedule. Routing encounter to clinical pharmacist. * Telephone Encounter - Theresa Merle Norton - 02/05/2024 11:11 AM EDT Telephoned the patient to schedule a new Primary Care pharmacy appt. Left a message. documented in this encounterW[facility]05-[facility]24 Telephone encounter Note * Telephone Encounter - Theresa Merle Norton - 02/05/2024 11:11 AM EDT Telephoned the patient to schedule a new Primary Care pharmacy appt. Left a message. [facility] History of Present illness Narrative* Aly Noriega RPh - 02/04/2024 2:36 PM EDT Primary Care Pharmacy Panel Management This patient has been identified through panel management efforts by the primary care pharmacy team. Please contact patient and schedule a pharmacy phone or virtual visit for diabetes management. Please use New Pharmacy, New Pharmacy Phone call, or Video Primary New visit types. Aly Noriega RPh documented in this encounterWooster [facility]05-15-2024 NoteHNO ID: [id number] Author: ALY NORIEGA RPh Service: ? Author Type: Pharmacist Type: Progress Notes Filed: 02/04/2024 14:37 Note Text: Primary Care Pharmacy Panel Management This patient has been identified through panel management efforts by the primary care pharmacy team. Please contact patient and schedule a pharmacy phone or virtual visit for diabetes management. Please use New Pharmacy, New Pharmacy Phone call, or Video Primary New visit types. [facility] NotePatient Outreach (PHMEWO) ANASTACIO POSEY ([id number]) 1980 M Date Time Provider Department 02/04/24 ALY NORIEGA During your visit today, we recorded the following information about you: Aly Noriega RPh 02/04/2024 2:37 PM Signed Primary Care Pharmacy Panel Management This patient has been identified through panel management efforts by the primary care pharmacy team. Please contact patient and schedule a pharmacy phone or virtual visit for diabetes management. Please use New Pharmacy, New Pharmacy Phone call, or Video Primary New visit types. Aly Noriega mirian Allergies As of Date: 02/04/2024 (No Known Allergies) Date Reviewed: 10/21/2023 Reviewed by: Evelyne Christiansen APRN.[employer] - Fully Assessed Primary Visit Diagnosis:Type 2 diabetes (HCC) [E11.9] Order(s):CONSULT TO PHARMACY [968811] Order #: [id number]: 1 Prescriptions as of 02/04/2024 - empagliflozin (JARDIANCE) 25 mg tablet Take 1 tablet by mouth daily with breakfast. - SITagliptin phosphate (JANUVIA) 100 mg tablet Take 1 tablet by mouth once daily. - metoclopramide HCl (REGLAN) 10 mg tablet Take 1 tablet by mouth four times daily. - atenolol (TENORMIN) 50 mg tablet Take 1 tablet by mouth once daily. - glimepiride (AMARYL) 4 mg tablet Take 1 tablet by mouth daily with breakfast. - amLODIPine (NORVASC) 10 mg tablet Take 1 tablet by mouth once daily. - lisinopril (ZESTRIL) 40 mg tablet Take 1 tablet by mouth once daily. - metFORMIN (GLUCOPHAGE) 1,000 mg tablet Take 1 tablet by mouth two times a day with meals. Diabetes. DOSE CHANGE - TAKE ONE WITH BREAKFAST AND DINNER - dicyclomine (BENTYL) 20 mg tablet Take 1 tablet by mouth before meals and at bedtime. - Blood Pressure Monitor Use as directed. - blood sugar diagnostic (BLOOD GLUCOSE TEST) test strip Test blood sugar(s) 1x daily. Dx: Type 2 DM. Insulin: No - Lancets lancets Test blood sugar(s) 1x times daily. Dx: Type 2 DM - Uncontrolled E11.65 Insulin: No Meds Comments as of 01/16/2016: [facility] Roque. Problem List As Of Date 02/04/2024 Noted Resolved Paranoid schizophrenia (HCC) [F20.0] Hypertension [I10] 04/22/2012 IBS (irritable bowel syndrome) [K58.9] 01/19/2014 01/16/2016 Lumbar disc herniation [M51.26] 05/25/2014 Left knee pain [M25.562] 07/20/2014 01/16/2016 Physical deconditioning [R53.81] 08/09/2014 Well adult exam [Z00.00] 08/29/2014 05/17/2016 DDD (degenerative disc disease), lumbar [M51.36]11/09/2014 Morbid obesity (HCC) [E66.01] 12/29/2014 Lumbago [M54.50] 05/18/2015 Gall stones [K80.20] 08/15/2015 01/16/2016 Incomplete RBBB [I45.10] 08/30/2015 06/10/2022 FLORIAN on CPAP [G47.33] 01/16/2016 Type 2 diabetes mellitus without complication, *11/13/2016 Balanitis [N48.1] 11/25/2016 06/20/2021 Lower urinary tract symptoms (LUTS) [R39.9] 11/25/2016 Early satiety [R68.81] 04/19/2021 04/19/2021 Gastroparesis [K31.84] 06/20/2021 Obesity, Class I, BMI 30-34.9 [E66.9] 08/29/2023 Encounter Status:Closed by ALY NORIEGA on 02/04/24[facility] 11-28[facility]2023 Discharge summary Author Sandeep Mccray [facility] November 28, 2023 4:28pm Note Date/Time November 28, 2023 2:14 pm [facility] Medical Records Department [address] [place] [address] Emergency Department Summary 11/28/23 MR#: [id number] Acct: [id number] Name: ANASTACIO POSEY Rep #:[id number] : 1980 42 From: Sandeep Mccray DO PCP: JEB Mora Status:REG ER Location: ED HPI HPI - GI History of Present Illness Chief Complaint: Abd Pain Narrative Narrative: 42-year-old male presenting with epigastric pain. States has had this in the past. When asked how long ago he had the pain, he tells me to check the medicalrecord. He states it has been maybe a year ago. He is not sure what medications were given for him to help him with the symptoms. When asked if he followed up with his primary care provider he does state that he did, but he also states that he had abdominal pain and nausea and vomiting for 2 months. Hestates that he was given medications from his primary care physician for follow-up and does not recall what those medications were. He states he did not require any other intervention or surgery. Currently has not had any fevers, chills. He states his pain is similar and he scribes as sharp and just below the umbilicus. No history of kidney stones. No urinary complaints. No constipation or diarrhea. Patient states that nothing makes it worse or better. He admits to nonstop nausea and vomiting for the last 3 days. He states he is not able to tolerate p.o. flu or food. [facility] Medical History Diabetes Hypertension Schizophrenia Home Medications lisinopril 20 mg tablet 20 mg PO DAILY 30 days #30 tabs 02/02/21 [Rx Last Taken Unknown] empagliflozin 25 mg tablet 25 mg PO DAILY 03/10/22 [History Last Taken Unknown] sitagliptin phosphate 100 mg tablet 100 mg PO DAILY 03/10/22 [History Last Taken Unknown] amlodipine 5 mg tablet 5 mg PO DAILY 03/11/22 [History Last Taken Unknown] metformin 500 mg tablet 1,000 tab PO BID 03/11/22 [History Last Taken Unknown] sildenafil 100 mg tablet 1 tab PO PRN PRN Erectile Dysfunction 03/11/22 [History Last Taken Unknown] dicyclomine 10 mg capsule 20 mg (2 x 10 mg) PO Q6H PRN PRN abdominal pain #20 CAPSULES 07/14/23 [Rx Last Taken Unknown] ondansetron 4 mg disintegrating tablet 8 mg (2 x 4 mg) PO Q8H PRN PRN Nausea #20tabs 07/14/23 [Rx Last Taken Unknown] naproxen 500 mg tablet (Naprosyn) 500 mg PO BID PRN pain #20 tabs 11/02/23 [Rx Last Taken Unknown] penicillin V potassium 500 mg tablet 500 mg PO 4X/DAY #40 tabs 11/02/23 [Rx Last Taken Unknown] metoclopramide HCl 10 mg tablet (Reglan) 10 mg PO Q6H PRN nausea and vomiting #20 tabs 11/28/23 [Rx Last Taken Unknown] polyethylene glycol 3350 17 gram/dose oral powder (Miralax) 17 g PO DAILY PRN constipation #119 grams 11/28/23 [Rx Last Taken Unknown] Allergy/AdvReac Type Severity Reaction Status Date / Time No Known Allergies Allergy Verified 11/28/23 12:06 Family History Brother CAD (coronary artery disease) Surgical History History of cholecystectomy Social History household members: spouse current occupational status: disabled Smoking Status: Former smoker alcohol intake: never substance use type: does not use ROS ROS ED Constitutional Constitutional ED: Denies chills, fever(s) or sweats Eyes Eyes: Denies blurry vision or change in vision ENT ENT ED: Denies ear pain or sore throat Cardiovascular Cardiovascular: Denies chest pain, palpitations or racing heartbeat Respiratory/Chest Respiratory/Chest: Denies cough, dyspnea or sputum Gastrointestinal Gastrointestinal: Reports abdominal pain, nausea and vomiting; Denies constipation or diarrhea Genitourinary Genitourinary ED: Denies dysuria, hematuria or urinary frequency Musculoskeletal Musculoskeletal: Denies arthralgias, myalgias or neck pain Integumentary Denies abscess, Abrasions or rash Neurologic Neurologic: Denies headache(s), paresthesias or weakness Psychiatric Psychiatric: Denies anxiety, depression, suicidal ideation or suicidal thoughts Endocrine Endocrinology: Denies polydipsia or polyuria EXAM Physical Exam Const Vital Signs: 11/28/23 12:05 Temperature 98 F Temperature Source Temporal Pulse Rate 105 H Respiratory Rate 16 Blood Pressure 187/104 H Blood Pressure Mean 131 Pulse Ox 95 Oxygen Delivery Method Room Air Positive well nourished General Appearance ED: NAD; Negative for pallor HEENT Reports moist mucous membranes normocephalic and atraumatic Eyes PERRL and EOMs intact bilaterally Resp normal respiratory effort and clear to auscultation bilaterally Auscultation: Negative for rales, rhonchi or wheezes Cardio regular rate and regular rhythm GI Palpation: tender periumbilical and suprapubic Back/Spine no CVA tenderness Neuro CN's II-XII intact bilaterally Sensorium / Orientation: alert Motor Exam: strength 5/5 throughout Psych mental status grossly normal Skin General Skin Exam: Negative for jaundice or pallor MDM MDM MDM Narrative Medical decision making narrative: Patient presenting with abdominal pain. States been ongoing for last 3 days. He states he is also had nausea and vomiting. Denies chills. Patient states that when he was seen last he does not know what was given to him for symptoms either by the ER physician or by primary care follow-up. He does state that he did not have to have any intervention. He states his last episode was about a year ago. Review of the medical record shows that this has happened 3 or 4 times since February of last year with no diagnosis. CBC will be obtained to assesswhite blood cell count, hemoglobin, platelets. BMP to assess renal function, drugs, glucose, LFTs to assess for liver function. Urinalysis to assess for UTIor occult blood. CT of the abdomen pelvis will be obtained. Patient medicated with Toradol and Zofran. Patient has mild leukocytosis at 14.5. Hemoglobin 17.5. Renal Function Electrolytes Are Normal. Urinalysis Negative. CT of the Abdomen Pelvis Identifies Constipation without Other Acute Finding. States There Is a Moderate Stool [place]. On Reevaluation Patient Still Having a LittleBit of Discomfort but Is Comfortable I Will Send Him Home on Nausea Medication and Counseled Him to use MiraLAX for the next 3 days to clear his bowels. Return precautions discussed. Impression: 1. Constipation 2. Abdominal pain Lab Data Attestation: I reviewed the patient's lab results. Labs: Laboratory Results - last 24 hr 11/28/23 11/28/23 12:51 15:04 WBC 14.5 H RBC 5.91 Hgb 17.5 H Hct 51.7 MCV 87.5 MCH 29.6 MCHC 33.8 RDW Std Deviation 41.5 RDW Coeff of Tobias 13.1 Plt Count 411 MPV 11.7 Immature Gran % (Auto) 0.500 Neut % (Auto) 86.4 H Lymph % (Auto) 8.9 L Caroline % (Auto) 3.7 Eos % (Auto) 0.0 Baso % (Auto) 0.5 Absolute Neuts (auto) 12.5 H Absolute Lymphs (auto) 1.29 Nucleated RBC % 0 Sodium 135 L Potassium 3.8 Chloride 95 L Carbon Dioxide 25.0 Anion Gap 15 BUN 19 H Creatinine 0.89 Estim Creat Clear Calc 141.50 Est GFR (MDRD) Af Amer 121 Est GFR (MDRD) Non-Af 100 BUN/Creatinine Ratio 21.4 H Glucose 359 H Calcium 9.8 Total Bilirubin 0.90 AST 15 ALT 24 Alkaline Phosphatase 84 Total Protein 8.6 H Albumin 4.1 Globulin 4.5 H Albumin/Globulin Ratio 0.9 Urine Color Yellow Urine Clarity Clear Urine pH 5.0 Ur Specific Mchenry 1.025 Urine Protein 30 H Urine Glucose (UA) 1000 H Urine Ketones 150 A* Urine Occult Blood Negative Urine Nitrite Negative Urine Bilirubin Negative Urine Urobilinogen Normal Ur Leukocyte Esterase Negative Urine RBC 0 SEEN Urine WBC 0 SEEN Ur Squamous Epith Cells 0 SEEN Urine Bacteria 0 SEEN Urine Mucus 0 SEEN Radiography Diagnostic Testing: Clinical Impression(s) from Imaging Studies Abdomen/Pelvis CT 11/28/23 14:20 IMPRESSION: Colonic diverticulosis without acute diverticulitis. Moderate stool in the colon. Hepatic steatosis. Cholecystectomy. Pancreatic atrophy. Electronically Signed: Maryellen Mahoney MD at 15:47 EST , Discharge Plan Triage Chief Complaint: Abd Pain ED Provider: Sandeep Mccray Dx/Rx/DC Orders Instructions: ED Constipation (Adult), ED Abdominal Pain Unkn Cause Male... Prescriptions: New polyethylene glycol 3350 [Miralax] 17 gram/dose powder 17 g PO DAILY PRN (Reason: constipation) Qty: 119 0RF metoclopramide HCl [Reglan] 10 mg tablet 10 mg PO Q6H PRN (Reason: nausea and vomiting) Qty: 20 0RF No Action lisinopril 20 mg Tablet 20 mg PO DAILY 30 Days Qty: 30 0RF sitagliptin phosphate 100 mg Tablet 100 mg PO DAILY empagliflozin 25 mg Tablet 25 mg PO DAILY metformin 500 mg tablet 1,000 tab PO BID Patient Comments: TAKE 2 TABLETS BY MOUTH TWICE DAILY WITH MEALS amlodipine 5 mg tablet 5 mg PO DAILY Patient Comments: TAKE 1 TABLET BY MOUTH ONCE DAILY sildenafil 100 mg tablet 1 tab PO PRN PRN (Reason: Erectile Dysfunction) Patient Comments: TAKE 1 TABLET 30 MINUTES PRIOR TO INTERCOURSE, ON AN EMPTY STOMACH AND WITH SEXUAL STIMULATION IMMEDIATELY FOLLOWING. dicyclomine 10 mg capsule 20 mg PO Q6H PRN PRN (Reason: abdominal pain) Qty: 20 0RF ondansetron [ondansetron] 4 mg tablet,disintegrating 8 mg PO Q8H PRN PRN (Reason: Nausea) Qty: 20 0RF penicillin V potassium 500 mg tablet 500 mg PO 4X/DAY Qty: 40 0RF naproxen [Naprosyn] 500 mg tablet 500 mg PO BID PRN (Reason: pain) Qty: 20 0RF Primary Care Provider: Nasra Rice NP Referrals: Nasra Rice NP, PRODUCT DEVELOPMENT SPECIALIST-C [Primary Care Provider] - Disposition Disposition: Home, Self Care What to do if you have Problems For any increased pain, shortness of breath, bleeding, nausea or vomiting, chestpain, or any unexpected problems, contact your Primary Care Provider. Call [facility] ([phone]) or report to the closest Emergency Room. Call 911 if necessary. 11/28/23 0116 <Electronically signed by Sandeep Mccray DO> Cosigner Signature (if applicable): CC: PRODUCT DEVELOPMENT SPECIALIST-C Nasra Rice ~ Signed [facility] Work Phone: 1(639) 438-777012-08-2023 History of Present illness Narrative* Evelyne Christiansen APRN.[place] - 08/29/2023 10:36 AM EST SUBJECTIVE Anastacio Posey is a 42 year [...] mouth two times a day with meals. Diabetes.DOSE CHANGE - TAKE ONE WITH BREAKFAST AND [...] blood sugar(s) 1x daily. Dx: Type 2 DM.Insulin: No Lancets lancets Test blood sugar(s) 1x [...] priority) Comment: with auditory hallucinations, [facility] - 05/18/2015 (D priority) Comment: chronic Obesity, Class I, Bmi 30-34.9 - 08/29/2023 Gastroparesis - 06/20/2021 Lower Urinary Tract Symptoms (Luts) - 11/25/2016 Type 2 Diabetes Mellitus Without Complication, Without Long-Term Current Use of Insulin ([facility]) - 11/13/2016 Florian On Cpap - 01/16/2016 Morbid Obesity ([facility]) - 12/29/2014 Ddd (Degenerative Disc Disease), Lumbar [...] from today's visit and in agreement with treatmentplan. Questions answered. Agrees to call the office [...] as well as compliance with taking medications. Age- appropriate health preventative measures were discussed. Return in about 2 months (around 10/30/2023) for Follow up on chronic conditions and medications.. Evelyne Christiansen APRN-HAMILTON documented in this [facility]23 Discharge summary Author Joey Encarnacion [facility] July 14, 2023 1:28pm Note Date/Time July 14, 2023 9 :49am [facility] Medical Records Department [address] [place] [address] Emergency Department Summary 07/14/23 MR#: [id number] Acct: [id number] Name: ANASTACIO POSEY Rep #:[id number] : 1980 42 From: Joey Encarnacion MD PCP: JEB Mora Status:REG ER Location: ED HPI HPI - GI History of Present Illness Chief Complaint: Abd Pain Informant: patient Narrative Narrative: Patient with sharp periumbilical abdominal pain that started yesterday gradually, followed by nausea and vomiting. He states initially it was red but he thinks he was drinking red fruit punch. Denies any hematemesis. Last bowel movement was before all of this, he states it was normal without melena or bright red blood per rectum. He states he has a history of this, he is a very poor historian, he can tell me that he has had pains like this off and on for couple years, and today he had an appointment with GI for the first time at [facility] and decided to cancel it because his pain was so bad so he came here to the. [facility] Medical History Diabetes Hypertension Schizophrenia Home Medications lisinopril 20 mg tablet 20 mg PO DAILY 30 days #30 tabs 02/02/21 [Rx Last Taken Unknown] empagliflozin 25 mg tablet 25 mg PO DAILY 03/10/22 [History Last Taken Unknown] sitagliptin phosphate 100 mg tablet 100 mg PO DAILY 03/10/22 [History Last Taken Unknown] amlodipine 5 mg tablet 5 mg PO DAILY 03/11/22 [History Last Taken Unknown] metformin 500 mg tablet 1,000 tab PO BID 03/11/22 [History Last Taken Unknown] sildenafil 100 mg tablet 1 tab PO PRN PRN Erectile Dysfunction 03/11/22 [History Last Taken Unknown] dicyclomine 10 mg capsule 20 mg (2 x 10 mg) PO Q6H PRN PRN abdominal pain #20 CAPSULES 07/14/23 [Rx Last Taken Unknown] ondansetron 4 mg disintegrating tablet 8 mg (2 x 4 mg) PO Q8H PRN PRN Nausea #20tabs 07/14/23 [Rx Last Taken Unknown] Allergy/AdvReac Type Severity Reaction Status Date / Time No Known Allergies Allergy Verified 07/14/23 09:36 Family History Brother CAD (coronary artery disease) Surgical History History of cholecystectomy Social History household members: spouse current occupational status: disabled Smoking Status: Former smoker alcohol intake: never substance use type: does not use ROS ROS ED Constitutional Constitutional ED: Denies chills or fever(s) Eyes Eyes: Denies change in vision or diplopia ENT ENT ED: Denies rhinorrhea or sore throat Cardiovascular Cardiovascular: Denies chest pain or palpitations Respiratory/Chest Respiratory/Chest: Denies cough or dyspnea Gastrointestinal Gastrointestinal: Reports abdominal pain, nausea and vomiting; Denies diarrhea or melena Genitourinary Genitourinary ED: Denies dysuria or hematuria Musculoskeletal Musculoskeletal: Denies back pain or neck pain Integumentary Denies abscess or rash Neurologic Neurologic: Denies headache(s), paresthesias or weakness Psychiatric Psychiatric: Denies anxiety or suicidal thoughts EXAM Physical Exam Const Vital Signs: 07/14/23 09:34 07/14/23 09:46 Temperature 98 F Temperature Source Temporal Pulse Rate 100 Respiratory Rate 20 H Blood Pressure 208/193 H 164/112 H Blood Pressure Mean 198 129 Pulse Ox 98 Oxygen Delivery Method Room Air Positive well nourished and well developed General Appearance ED: well developed and NAD HEENT Reports moist mucous membranes normocephalic and atraumatic Eyes PERRL and EOMs intact bilaterally Neck full ROM and supple Resp normal respiratory effort and clear to auscultation bilaterally Cardio regular rate, regular rhythm and no murmurs GI non-distended GI Narrative: Periumbilical tenderness no palpable hernia mild epigastric tenderness otherwisebenign abdomen. No guarding or rebound. Auscultation: normoactive bowel sounds Palpation: soft Back/Spine no CVA tenderness General Back: other FROM Extremity normal to inspection General Extremety ED: Negative for edema, pulses abnormal or tenderness General Extremity: Negative for edema or pulses abnormal Neuro oriented x3, CN's II-XII intact bilaterally and no sensory deficits noted Sensorium / Orientation: awake and alert Motor Exam: strength 5/5 throughout Psych Mood & Affect: anxious Skin no rashes or lesions noted and no wounds MDM MDM MDM Narrative Medical decision making narrative: Patient does have a mild leukocytosis, and he has a history of diverticulosis, so given that diverticulitis is in the differential labs and a CT scan were obtained, the CT shows nothing acute I reviewed the images and the report and I agree with it. Patient is doing better after medications and fluids. The periumbilical nature of the discomfort suggests small bowel pain. We will prescribe him Zofran and dicyclomine to use as needed, and hopefully this will be self-limiting and if not he is welcome to return or follow-up with his doctor. His high blood pressure did come down with just the above treatment, 160/112 he will need to have a repeat check as an outpatient. Lab Data Attestation: I reviewed the patient's lab results. Labs: Laboratory Results - last 24 hr 07/14/23 07/14/23 10:10 10:15 WBC 12.0 H RBC 5.84 Hgb 17.5 H Hct 51.3 MCV 87.8 MCH 30.0 MCHC 34.1 RDW Std Deviation 40.8 RDW Coeff of Tobias 12.7 Plt Count 340 MPV 11.8 Immature Gran % (Auto) 0.300 Neut % (Auto) 78.8 H Lymph % (Auto) 13.4 L Caroline % (Auto) 6.8 Eos % (Auto) 0.1 Baso % (Auto) 0.6 Absolute Neuts (auto) 9.5 H Absolute Lymphs (auto) 1.61 Nucleated RBC % 0 Sodium 135 L Potassium 3.3 L Chloride 99 Carbon Dioxide 24.0 Anion Gap 12 BUN 10 Creatinine 0.67 L Estim Creat Clear Calc 159.25 Est GFR (MDRD) Af Amer 168 Est GFR (MDRD) Non-Af 139 BUN/Creatinine Ratio 15.0 Glucose 273 H Calcium 9.4 Total Bilirubin 0.90 AST 12 L ALT 25 Alkaline Phosphatase 74 Total Protein 7.9 Albumin 3.9 Globulin 4.0 Albumin/Globulin Ratio 1.0 Urine Color Yellow Urine Clarity Sl. Cloudy Urine pH 5.0 Ur Specific Mchenry 1.025 Urine Protein 100 H Urine Glucose (UA) 1000 H Urine Ketones 150 A* Urine Occult Blood 10 H Urine Nitrite Negative Urine Bilirubin Negative Urine Urobilinogen Normal Ur Leukocyte Esterase 25 H Urine RBC 0 SEEN Urine WBC 5-10 SEEN Ur Squamous Epith Cells 0-5 SEEN Urine Bacteria 0 SEEN Urine Mucus 0 SEEN Radiography Diagnostic Testing: Clinical Impression(s) from Imaging Studies Abdomen/Pelvis CT 07/14/23 09:45 IMPRESSION: No acute abdominal or pelvic pathology. Electronically Signed: Jaswant Goldberg MD at 11:16 EDT , Rhythm Strip Rhythm Strip: Sinus Rhythm Rate: 99 Ectopy: None Discharge Plan Triage Chief Complaint: Abd Pain ED Provider: Joey Encarnacion Dx/Rx/DC Orders Clinical Impression: Abdominal pain, acute, periumbilical, Acute gastritis without bleeding, Accelerated hypertension Instructions: Abdominal Pain, ED Gastritis (Adult) Prescriptions: New dicyclomine 10 mg capsule 20 mg PO Q6H PRN PRN (Reason: abdominal pain) Qty: 20 0RF ondansetron [ondansetron] 4 mg tablet,disintegrating 8 mg PO Q8H PRN PRN (Reason: Nausea) Qty: 20 0RF No Action lisinopril 20 mg Tablet 20 mg PO DAILY 30 Days Qty: 30 0RF sitagliptin phosphate 100 mg Tablet 100 mg PO DAILY empagliflozin 25 mg Tablet 25 mg PO DAILY metformin 500 mg tablet 1,000 tab PO BID Patient Comments: TAKE 2 TABLETS BY MOUTH TWICE DAILY WITH MEALS amlodipine 5 mg tablet 5 mg PO DAILY Patient Comments: TAKE 1 TABLET BY MOUTH ONCE DAILY sildenafil 100 mg tablet 1 tab PO PRN PRN (Reason: Erectile Dysfunction) Patient Comments: TAKE 1 TABLET 30 MINUTES PRIOR TO INTERCOURSE, ON AN EMPTY STOMACH AND WITH SEXUAL STIMULATION IMMEDIATELY FOLLOWING. Primary Care Provider: Nasra Rice NP Referrals: Nasra Rice NP, PRODUCT DEVELOPMENT SPECIALIST-C [Primary Care Provider] - 3-5 Days if not improving (Even if you are better make sure you follow-up with your doctor within the next week or 2 to have your blood pressure rechecked) Disposition Disposition: Home, Self Care What to do if you have Problems For any increased pain, shortness of breath, bleeding, nausea or vomiting, chestpain, or any unexpected problems, contact your Primary Care Provider. Call [facility] ([phone]) or report to the closest Emergency Room. Call 911 if necessary. 07/14/23 1328 <Electronically signed by Joey Encarnacion MD> Cosigner Signature (if applicable): CC: JEB Rice ~ Signed [facility] Work Phone: 1(943) 520-712210-23-2023 Miscellaneous Notes* Telephone Encounter - Berta Walker RN - 07/14/2023 8:19 AM EDT Patient having severe vomiting with severe abdominal pain. Patient is a diabetic- taking 3 diabeticmedications, unable to keep down and unable to [...] Patient didn't eat dinner last night b/c hewas nauseous. Patient has not eaten in 2 [...] after vomited. 10. : N/A. Protocols used: [id number] documented in [facility] History of Present illness Narrative* Evelyne Christiansen APRN.SOLAR PHOTOVOLTAIC CREW LEAD - 07/04/2023 10:48 AM EDT SUBJECTIVE Anastacio Posey is a 42 year [...] blood sugar(s) 1x daily. Dx: Type 2 DM.Insulin: No dicyclomine (BENTYL) 20 mg tablet Take [...] mouth two times a day with meals. Diabetes.DOSE CHANGE - TAKE ONE WITH BREAKFAST AND DINNER SITagliptin (JANUVIA) 100 mg tablet Take 1 tablet by mouth once daily. No current facility-administered medications for this visit. 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[facility]) (A priority) Comment: with auditory hallucinations, [facility] - 05/18/2015 (D priority) Comment: chronic Gastroparesis - 06/20/2021 Lower Urinary Tract Symptoms (Luts) - 11/25/2016 Type 2 Diabetes Mellitus Without Complication, Without Long-Term Current Use of Insulin ([facility]) - 11/13/2016 Florian On Cpap - 01/16/2016 Morbid Obesity ([facility]) - 12/29/2014 Ddd (Degenerative Disc Disease), Lumbar [...] from today's visit and in agreement with treatmentplan. Questions answered. Agrees to call the office [...] as well as compliance with taking medications. Age- appropriate health preventative measures were discussed. Return in about 4 weeks (around 08/01/2023) for follow up on blood pressure. AAKASH Landeros documented in this encounterW[facility]09-07-[facility]23 History of Present illness Narrative* Carito Campbell RDMS - 05/29/2023 10:00 AM EDT Radiology Service Progress Note PATIENT NAME: Anastacio Posey DATE OF SERVICE: May 29, 2023 TIME: 11:09 AM PATIENT IDENTITY VERIFICATION COMPLETED USING TWO (2) IDENTIFIERS: Name and Date of confirmedby patient verbally. FALL SCREENING: Has the patient had 2 falls in the last year or 1 fall with injury or currently using an Ambulatory Assistive Device (Walker, Cane, Wheelchair, Crutches, etc.)? No PATIENT GENDER DATA: Male PATIENT RELEVANT IMPLANT DATA REVIEWED: Not Applicable RADIOLOGY DEPARTMENT: Ultrasound PERIPHERAL IV DATA: Not applicable SIGNED BY: Cartio Campbell RDMS RVT May 29, 2023 11:09 AM documented in this encounterWooster [facility]09-01-2023 History of Present illness Narrative* Evelyne Christiansen APRN.SOLAR PHOTOVOLTAIC CREW LEAD - 05/23/2023 9:46 AM EDT SUBJECTIVE Anastacio Posey is a 42 year old male here today for a check up on his medical problems. Chief Complaint Patient presents with: ER F/U: [facility] ER 05/19/2023 for abdominal pain with vomiting Ear Problem: trouble hearing out of ears and question serum impaction HPI Anastacio Posey is a 42 year old male. Here today for ER follow up. Seen in [facility] ER on 05/19 for abdominal pain and vomiting. CT scan that was normal per patient. ER gave some medication to help with stomach issues and nausea medication. Jewels. Elbert. 4-5 years with abdominal pain and issues. Saw general surgery, sent to [facility] for possible hernia near belly button. [...] blood sugar(s) 1x daily. Dx: Type 2 DM.Insulin: No Lancets lancets Test blood sugar(s) 1x times daily. Dx: Type 2 DM - Uncontrolled E11.65 Insulin: No No current facility-administered medications for this visit. 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[facility]) (A priority) Comment: with auditory hallucinations, [facility] Lumbago - 05/18/2015 (D priority) Comment: chronic Gastroparesis - 06/20/2021 Lower Urinary Tract Symptoms (Luts) - 11/25/2016 Type 2 Diabetes Mellitus Without Complication, Without Long-Term Current Use of Insulin ([facility]) - 11/13/2016 Florian On Cpap - 01/16/2016 Morbid Obesity ([facility]) - 12/29/2014 Ddd (Degenerative Disc Disease), Lumbar [...] is no shifting dullness, fluid wave, hepatomegaly, splenomegaly,mass or pulsatile mass. Tenderness: There is abdominal tenderness in the suprapubic area. There is no right CVA tenderness,left CVA tenderness, guarding or rebound. Negative signs [...] which included preparing to see the patient, gguk-zy-kzta patient care, completing clinical documentation, obtaining and/or reviewing separately obtained history, performing a medically appropriate examination, counseling and educating the pat ient/family/caregiver, ordering medications, tests, or procedures, communicating with other HCPs (not separately reported), independently interpreting results (not separately reported), communicatingresults to the patient/family/caregiver, and care coordination (not [...] from today's visit and in agreement with treatmentplan. Questions answered. Agrees to call the office [...] as well as compliance with taking medications. Age- appropriate health preventative measures were discussed. Return if symptoms worsen or fail to improve, for Keep next scheduled appointment.. Evelyne Christiansen APRN-HAMILTON documented in this encounterW[facility]07-07-[facility]23 Hospital Discharge instructions Patient Education 03/28/2023 17:43:02 Diabetes with [...] your healthcare provider, go to a hospital emergencyroom or urgent care center. Call 911 Call 911 if you have any of the following: Confusion Dizziness, lightheadedness, or loss of consciousness Shortness of breath Chest pain Weakness of an arm, leg, or one side of the face Sudden trouble with speech or vision 0902-4623 [employer]. [address] [place] [address]. All rights reserved. This information is not intended as a substitute for professional medical care. Always follow yourhealthcare professional's instructions. 03/28/2023 17:42:49 High Blood Pressure, [...] that stimulates the heart. This includes many zuar-obt-ihqgdiq cold and sinus decongestant pills and sprays, as well as diet pills. Check the warnings about high blood pressure on thelabel. Before purchasing any jcgp-hhj-crdqtds medicines or supplements, always ask the pharmacist [...] this can be hard. Enroll in a stop- smoking program to make it more likely that [...] on home blood pressure monitoring from the [employer]. Don't smoke or drink coffee [...] is directly above the bend of the elbow.Check the monitor's instruction manual for an illustration. [...] Don't be frightened by a single high reading,but if you get several high readings, check [...] directed. Bring the record of your home bloodpressure readings to the appointment. When to seek medical advice Call your healthcare provider right away if any of these occur: Blood pressure reaches a systolic (top number) of 180 or higher or diastolic (bottom number) of 110or higher, emergency medical treatment is required. Chest, arm, shoulder, neck, or upper back pain Shortness of breath Severe headache Throbbing or rushing sound in the ears Nosebleed Extreme drowsiness, confusion, or fainting Dizziness or dizziness with spinning sensation (vertigo) Weakness in an arm or leg or on one side of the face Trouble speaking or seeing 5425-[address] [employer] [place] [address]. All rights reserved. This information is not intended as a substitute for professional medical care. Always follow yourcleveland clinic foundationcare professional's instructions. 03/28/2023 17:40:34 Abdominal Pain, Unknown Cause, (Male) Unknown Causes of Abdominal Pain (Male) Based on your visit today, the exact cause of your abdominal pain is not clear. Your exam and testsdon't suggest a dangerous cause at this time. However, the signs of a serious problem may take moretime to appear. Although your evaluation was reassuring [...] may only require an exam by the doctoror it may include blood, urine or imaging [...] the time being. A low fat, low fiberdiet can also help. Eating several small meals [...] chest, arm, back, neck or jaw pain [phone] [employer] [place] [address]. All rights reserved. This information is not intended as a substitute for professional medical care. Always follow yourhealthcare professional's instructions. Follow Up Care 03/28/2023 15:12:20 With:HUANG KEBEDE DO Address: [address] [place] [phone] When:2-4 days With:Go to emergency room if symptoms worsen Address:Unknown When:2-4 days [facility] 07-07-2023 Note Discharge Instructions Thank you for allowing [facility] to assist you with your healthcare needs. The following is importantdischarge information regarding your hospital visit. Diagnosis from Today's Visit Abdominal pain for 2 weeks Abdominal pain What to Do Next Instructions from Your Care Team Clear liquid diet. Advance as tolerated. Monitor blood sugars. Follow-up with your doctor. Return if worse. No qualifying data available. Post Acute Orders No qualifying data available. You Need to Schedule the Following Appointments Follow Up with DELIO, HUANG M DO When Within 2-4 days Where: 0 [facility] [place] [phone] Follow Up with Go to emergency room if symptoms worsen When Within 2-4 days Allergies NKA Medications Please ask your primary doctor or pharmacist before taking any other medication not listed, including over the counter drugs, herbal medications, vitamins and or supplements as they may interact withyour home medications. What How Much When Why [...] provided, or with a special dose-measuring spoon ormedicine cup. If you do not have a [...] the body--agitation, hallucinations, fever, fast heart rate, overactivereflexes, nausea, vomiting, diarrhea, loss of coordination, fainting. Common side effects may include: diarrhea or constipation; headache; drowsiness; or tired feeling. This is not a complete list of side effects and others may occur. Call your doctor for medical advice about side effects. You may report side effects to FDA at 8-287-NER-2882. What other drugs will affect ondansetron? Ondansetron [...] interact with ondansetron. This includes prescription and nbwt-nfw-hocmmoo medicines, vitamins, and herbal products. Give a [...] to ensure that the information provided by [employer]. ('[employer]') is accurate, up-to-date, and complete, but no guarantee is made to that effect. Drug information contained herein may be time sensitive. [employer] information has been compiled for use by healthcare practitioners and consumers in the [place] and therefore [employer] does not warrant that uses outside of the [place] are appropriate, unless specifically indicated otherwise. [employer] drug information does not endorse drugs, diagnose patients or recommend therapy. [employer] drug information isan informational resource designed to assist licensed healthcare practitioners in caring for their p atients and/or to serve consumers viewing this service as a supplement to, and not a substitute for, the expertise, skill, knowledge and judgment of healthcare practitioners. The absence of a warningfor a given drug or drug combination in no way should be construed to indicate that the drug or drug combination is safe, effective or appropriate for any given patient. [employer] does not assume any responsibility for any aspect of healthcare administered with the aid of information [employer] provides. The information contained herein is not intended to cover all possible uses, directions, precautions, warnings, drug interactions, allergic reactions, or adverse effects. If you have questions about the drugs you are taking, check with your doctor, nurse or pharmacist. Copyright 8800-2992 [employer]. Version: 13.01. Revision Date: 07/12/2016. famotidine (oral/injection) (fam [place] ti ray) Heartburn Relief, Leader Acid Quality Facilitator, Pepcid, Pepcid AC, Pepcid AC Maximum Strength, [...] may report side effects to FDA at 9-452-ONQ-4952. What other drugs will affect famotidine? Famotidine oral can make it harder for your body to absorb other medicines you take by mouth. Tell your doctor if you are taking: cefditoren; dasatinib; delavirdine; fosamprenavir; or tizanidine (if you are taking famotidine liquid). This list is not complete. Other drugs may affect famotidine, including prescription and gdjn-nxc-qsxxghq medicines, vitamins, and herbal products. Not all [...] to ensure that the information provided by [employer]. ('[employer]') is accurate, up-to-date, and complete, but no guarantee is made to that effect. Drug information contained herein may be time sensitive. [employer] information has been compiled for use by healthcare practitioners and consumers in the [place] and therefore [employer] does not warrant that uses outside of the [place] are appropriate, unless specifically indicated otherwise. [employer] drug information does not endorse drugs, diagnose patients or recommend therapy. [employer] drug information isan informational resource designed to assist licensed healthcare practitioners in caring for their p atients and/or to serve consumers viewing this service as a supplement to, and not a substitute for, the expertise, skill, knowledge and judgment of healthcare practitioners. The absence of a warningfor a given drug or drug combination in no way should be construed to indicate that the drug or drug combination is safe, effective or appropriate for any given patient. [employer] does not assume any responsibility for any aspect of healthcare administered with the aid of information [employer] provides. The information contained herein is not intended to cover all possible uses, directions, precautions, warnings, drug interactions, allergic reactions, or adverse effects. If you have questions about the drugs you are taking, check with your doctor, nurse or pharmacist. Copyright 4490-5883 [employer]. Version: 18.01. Revision Date: 03/01/2021. Education Materials [...] your healthcare provider, go to a hospital emergencyroom or urgent care center. Call 911 Call 911 if you have any of the following: Confusion Dizziness, lightheadedness, or loss of consciousness Shortness of breath Chest pain Weakness of an arm, leg, or one side of the face Sudden trouble with speech or vision [phone] [employer]. [address] [place] [address]. All rights reserved. This information is not intended as a substitute for professional medical care. Always follow yourhealthcare professional's instructions. Uncontrolled High Blood Pressure (Established) [...] that stimulates the heart. This includes many qdpx-ynn-vyqdlqi cold and sinus decongestant pills and sprays, as well as diet pills. Check the warnings about high blood pressure on thelabel. Before purchasing any vtyo-pvf-dreblmu medicines or supplements, always ask the pharmacist [...] this can be hard. Enroll in a stop- smoking program to make it more likely that [...] on home blood pressure monitoring from the [employer]. Don't smoke or drink coffee [...] is directly above the bend of the elbow.Check the monitor's instruction manual for an illustration. [...] Don't be frightened by a single high reading,but if you get several high readings, check [...] directed. Bring the record of your home bloodpressure readings to the appointment. When to seek medical advice Call your healthcare provider right away if any of these occur: Blood pressure reaches a systolic (top number) of 180 or higher or diastolic (bottom number) of 110or higher, emergency medical treatment is required. Chest, arm, shoulder, neck, or upper back pain Shortness of breath Severe headache Throbbing or rushing sound in the ears Nosebleed Extreme drowsiness, confusion, or fainting Dizziness or dizziness with spinning sensation (vertigo) Weakness in an arm or leg or on one side of the face Trouble speaking or seeing 4503-8864 [employer]. [address] [place] [address]. All rights reserved. This information is not intended as a substitute for professional medical care. Always follow yourhealthcare professional's instructions. Unknown Causes of Abdominal Pain (Male) Based on your visit today, the exact cause of your abdominal pain is not clear. Your exam and testsdon't suggest a dangerous cause at this time. However, the signs of a serious problem may take moretime to appear. Although your evaluation was reassuring [...] may only require an exam by the doctoror it may include blood, urine or imaging [...] the time being. A low fat, low fiberdiet can also help. Eating several small meals [...] chest, arm, back, neck or jaw pain [phone] [employer]. [address] [place] [address]. All rights reserved. This information is not intended as a substitute for professional medical care. Always follow yourhealthcare professional's instructions. Additional Information VACCINATE! IT SAVES LIVES! Members of the community who have not yet received the COVID-19 vaccine and would like to receive it can visit one of [facility] vaccine clinics. There are many vaccine clinic locations within the [facility]. For locations and available times, please visit www.[email or web address].[email or web address]/. It is important to note that some COVID mobile vaccine clinics are held outdoors and may be canceled in rainy or stormy conditions. To learn more about pediatric vaccinations (ages 5-11), we invite you to visit the [facility] webpage. [email or web address]/[email or web address]-[email or web address]-Fuzmpwomov-Ygyhq-Ffe stions.htmlTo learn more about the COVID-19 vaccine, we invite you to visit the CDC website for a list of frequently asked questions. https://www.cdc.gov/coronavirus/2019-ncov/vaccines/faq.html [facility] Patient Portal Access Instructions: Stay connected with your healthcare team and access your personal medical information anytime with the [facility] Patient Portal. If you would like a full copy of your medical records please contact the [facility] Medical Records Department Friday through Friday between 8a.m. and 4:30p.m. Please follow the directions below to access the portal: 1.Access the email account you provided upon registration to the hospital.2.Look for an invitation email from [facility].3.Open the email and access the invitation link: Accept Invitation to [facility]4.Fill in the required osorio to create your account. Sign into [email or web address] with your username and password that you [...] you will allow to register on the [facility] Patient Portal for access to your information. You can also access the [facility] Patient Portal on the [employer] vishal. Simply click on Health Records under [employer] and then click on the [facility] logo. HOW TO SAFELY DISPOSE OF PRESCRIPTION MEDICATIONS Please use one of the following methods to safely dispose of your unused medications. 1.Use a drug disposal kit: the drug disposal pouch allows you to safely discard your old and unuseddrugs. Ask your nurse to give you one when you are discharged.2.Visit a local take-back location: Many local pharmacies and police departments have programs that collect old and unwanted prescriptiondrugs. Call your local pharmacy or go to http://bit.[employer]/4B4Pu9j to find one close to you.3.Make use of household items: Use cat litter or old coffee grounds to dispose medications if other options arenot available. Mix your drugs with these household products, seal them in an airtight container andthrow it into the garbage. Call [facility]: [phone] to be sure your drugs can be [...] drowsiness, such as benzodiazepines, also known as benzos,including diazepam and alprazolam, muscle relaxants or sleep aids. Never sell or share prescriptionopioids. This is illegal. Store opioids in a [...] aware that I should contact my doctor. 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 Signature: Date/Time: Relationship to Patient: Witness Name/Signature: Date/Time: [facility] [id number] Note ORIGINAL EXAMINATION: CT OF THE ABDOMEN [...] Sign Date: 03/28/2023 5:27:10 PM Ordering Provider: [facility]07-07-2023 Note ORIGINAL EXAMINATION: CT OF THE ABDOMEN [...] Sign Date: 03/28/2023 5:27:10 PM Ordering Provider: [facility]09-19-2022 Instructions* Patient Instructions* Nasra Rice APRN.CNS - 06/10/2022 11:22 AM EDT Take an extra 5 mg amlodipine today as soon as you get home Take 5 mg amlodipine and 20 mg lisinopril every day for blood pressure. documented in [facility]09[facility] History of Present illness Narrative* Nasra Rice APRN.CNS - 06/10/2022 11:00 AM EDT SUBJECTIVE: HEPATITIS B(1 of 3 - 3-dose [...] Dr Pressley for refractory gastroparesis. Has seen international travel consultant. Dietary measures for GP discussed. Today reports [...] blood sugar(s) 1x daily. Dx: Type 2 DM.Insulin: No Lancets lancets Test blood sugar(s) 1x [...] Defers - PNEUMOCOCCAL VACCINE (PREVNAR 20) - [employer] COVID-19 BIVALENT BOOSTER VACCINE, AGE 12+ YR - HEPATITIS B VACCINE, ADULT AGE 20+, IM 5. 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 Refill sent to pharmacy today. Recommend resuming today. Recheck Friday this week or Friday next week regarding blood pressure. Cerumen removal at next visit. Nasra Rice APRN.CNS Medical Decision Making: Problems: Moderate: 1+ chronic illnesses with change Risk: Moderate: Drug management Medical Decision Making Level: 4 - Moderate documented in this encounterW[facility]09-[facility]-2022 History of Present illness Narrative* Renee Galindo APRN.SOLAR PHOTOVOLTAIC CREW LEAD - 05/23/2022 10:35 AM EDT CC: Patient presents with: Recheck: Bruise follow [...] blood sugar(s) 1x daily. Dx: Type 2 DM.Insulin: No Lancets lancets Test blood sugar(s) 1x [...] the bruise. This is expected to continue toimprove - follow up if this gets larger, tender, or red. 2. Soft tissue mass - ICD9: 729.99, ICD10: M79.89 As above Prescription instructions reviewed with patient as applicable. Potential red flag symptoms discussed with the patient. Reviewed appropriate action plan to take if red flag symptoms occur. Patient agreeable to treatment plan. Renee Galindo APRN.CNP documented in this encounter[facility]22 Miscellaneous Notes* Telephone Encounter - Faith Mares RN - 05/20/2022 2:32 PM EDT reviewed by Dr Pressley continue with diet and let us know if symptoms get worse called and notified patient states understanding Faith Mares RN May 20, 2022 2:33 PM * Telephone Encounter - Faith Mares RN - 05/16/2022 1:49 PM EDT patient is calling in states has been having some nausea and vomiting did see a international travel consultant virtually went over diet he has a bowl of cereal or eggs with toast (wheat) and eggs or kim sometimes a blueberry bagel with cream cheese [...] 16, 2022 1:58 PM documented in this encounterW[facility]08-[facility]22 History of Present illness Narrative* Renee Galindo, AUTOMOTIVE INTERNET SALES MANAGER.SOLAR PHOTOVOLTAIC CREW LEAD - 05/16/2022 11:01 AM EDT CC: Patient presents with: Bleeding/Bruising: R arm [...] headache, chest pain, palpitations, dyspnea, and peripheral edema.Patient denies any side effects of his medication(s) [...] blood sugar(s) 1x daily. Dx: Type 2 DM.Insulin: No Lancets lancets Test blood sugar(s) 1x [...] grossly intact., Negative findings: speech normal, muscle tonenormal, muscle strength normal Health maintenance reviewed with [...] plan. Renee Galindo APRN.CNP documented in this encounterW[facility]06-22-2022 Miscellaneous Notes* Telephone Encounter - Faith Wallis RN - 03/13/2022 11:37 AM EDT Patient calls and states that he did go to [facility] ER. Blood work and CT scan were done and came back normal. Patient was given prescription for nausea pills which have helped. Patient denies needing a ER follow up visit. Faith Wallis RN * Telephone Encounter - Daisy Garcia RN - 03/13/2022 10:09 AM EDT Patient triaged on 03/11/2022 with recommendation to seek ED evaluation. Patient agreed to evaluation at that time. Call placed to patient with no answer at this time. Message left for patient to callback and verify he received treatment. Daisy Garcia RN * Telephone Encounter - Nasra Rice APRN.CNS - 03/12/2022 5:25 PM EDT He reports vomiting since Friday and unable to keep anything but water down. Recommend ER visit if he has not done so yet ASIM. documented in this encounterWo[facility]06-20-2022 Miscellaneous Notes* Telephone Encounter - Daisy Garcia RN - 03/11/2022 11:05 AM EDT Patient calls to report vomiting since Friday [...] AND [2] contains red blood or black (coffee ground) material (Exception: few red streaks in vomit that only happened once) Answer Assessment - Initial Assessment Questions 1. VOMITING SEVERITY: - SEVERE: 6 or more times/day, vomits everything or nearly everything, with significant weight loss, symptoms of dehydration Patient reports that he can't keep anything down since Friday. Patient was to ED over the weekendand has been vomiting since. Patient has zofran ordered but says he can't keep that down either butthen says he has only tried one pill so far. 2. ONSET:Friday 3. FLUIDS: Water and Gatorade. Not sure amount but reports vomiting frequently. Tried applesauce and toast this AM which came up. 4. ABDOMINAL PAIN: Midline to umbilicus. Painful area feels hard distended like a hernia but not ahernia. 5. DIARRHEA: No 6. CONTACTS: No 7. [...] but he isn't really sure. Protocols used: [id number] documented in this encounterWooster [facility] Hospital06-16-2022 History of Present illness Narrative* Jamee Buck RD - 03/07/2022 10:15 AM EDT [facility] Nutrition Therapy: Virtual Consult Initial Assessment This [...] of nausea and early satiety started in 2016/2016. PMH of HTN, T2DM (HbA1c 7.7), IBS, [...] and avoid laying down for ~3 hours aftera meal - Drink Glucerna shake if skipping a meal - Separate beverages with meals - Walk after meals to help support digestion - Resources for recipes/information for gastroparesis https://aboutgastroparesis.org/treatments/rzhaweq-zuidxuqaj-bnecimuk/sample-meal -plans/ https://BuyerCurious/ypcgusjp-smqwtqj-tkq-gastroparesis/ Nutrition Monitoring & Evaluation: GI symptoms. Dietary intake. Weight. Need for Follow up: 2-3 months MNT Billing Type: Re-assess/15 min 2 units Signed by: Jamee Buck RD documented in this encounterWooster [facility]06-01-2022 Nurse Note* BARTOLO Mendoza - 02/20/2022 12:01 PM EDT Patient has gastroparesis. Referred by Dr Rosenbaum. [...] Temperature: No Drains: No documented in this encounterWooster [facility]06-01-2022 History of Present illness Narrative* Lionel Pressley MD - 02/20/2022 12:00 PM EDT Assessment ASSESSMENT 41 year old male with medical refractory gastroparesis. PLAN I discussed surgical therapy for gastroparesis and rectus diastasis in detail. Anastacio Posey iscandidate for Nutrition referral as his symptoms are not terrible. Can discuss and POP if refractory to this. Would be a good EMPTIES candidate if considering a POP. NAME: Anastacio Posey [facility] NO: [id number] DATE OF SERVICE: February 19, 2022 This [...] blood sugar(s) 1x daily. Dx: Type 2 DM.Insulin: No Lancets lancets Test blood sugar(s) 1x [...] or clotting disorder. Pt is not taking anti- coagulation or platelet medications. No history of hematological [...] Edema Lionel Pressley MD documented in this encounterWooster [facility] Hospital06-01-2022 History of Present illness Narrative* Anastacio Rosenbaum, - 02/20/2022 11:30 AM EDT GASTROPARESIS CONSULT Patient is referred by Dr. Lisa Matos for an opinion regarding GP and my final recommendations will be communicated back to the requesting physician by way of a copy of today's office notes. PRESENTING COMPLAINT & HISTORY Anastacio is a 40 yr old male w/hx of IBS, paranoid schizophrenia, DM2, HTN, and cholecystectomy thatwas diagnosed with gastroparesis 05/2021 after having an abnormal gastric emptying study showing 64%retention at 4 hours. Symptoms started after cholecystectomy [...] Medications - Does the patient see a supervisor painting department for chronic abdominal pain?No - Is the [...] - Has the patient met with a international travel consultant for diet recommendations with Gastroparesis? No - [...] Yes - Botox Injections: No Patient Name Curt Posey Age [age] year old Gastroparesis Consult [...] blood sugar(s) 1x daily. Dx: Type 2 DM.Insulin: No (Patient not taking: Reported on 06/20/2021 ) 50 Strip 11 Lancets lancets Test blood sugar(s) 1x times daily. Dx: Type 2 DM - Uncontrolled E11.65 Insulin: No(Patient not taking: Reported on 06/20/2021 ) 100 [...] No history of dysuria, frequency or incontinence INVESTOR RELATIONS DIRECTOR: NA MUSCULOSKELETAL: Negative for joint pain or [...] speech normal, mental status intact, cranial nerves 2- 12 intact Plan Given the risk of autoimmune [...] Anastacio Rosenbaum DO 08/14/2021 documented in this encounterWooster [facility]05-09-2022 History of Present illness Narrative* Ana Bhandari, JUANY - 01/28/2022 10:20 AM EDT 1. Type 2 diabetes mellitus with both eyes affected by moderate nonproliferative retinopathy without macular edema, without long-term current use of insulin (HCC) Risk of diabetic changes and vision loss can be minimized by tight control of blood sugar, blood pressure, and cholesterol levels. Educated patient to continue care with primary care doctor and/or leasing associate to maintain optimum levels as they are [...] 28, 2022 10:20 AM documented in this encounterWooster [facility] Hospital04-14-2022 Miscellaneous Notes* Telephone Encounter - Gardenia Rivas MA - 01/03/2022 10:13 AM EDT NOV 04/09/22 CARLOS 10/23/21 Patient electronically sent a request for the following prescription(s) Pending Prescriptions Disp Refills LISINOPRIL 20 MG TABLET 30 tablet 0 Sig: Take 1 tablet by mouth once daily BERNADETTE: Yes Patient aware RX will be sent to pharmacy. No need to notify patient. Please review. Gardenia Rivas MA documented in this encounterWooster [facility] Hospital03-11-2022 Miscellaneous Notes* Telephone Encounter - Stephanie Morgan - 11/30/2021 1:13 PM EST Patient is scheduled on 02/20/22 with all 3 providers. * Telephone Encounter - Lexy Cordova - 11/30/2021 9:23 AM EST Schedule New GP with DR. Rosenbaum, Dr. Pressley, and Dr. Samuel. ( states possible empties research candidate for Dr. Pressley) * Telephone Encounter - Anastacio Rosenbaum DO - 11/30/2021 9:10 AM EST This would be a good EMPTIES trial have him see me and mark at least possibly ahmet * Telephone Encounter - Lexy Cordova - 11/29/2021 2:08 PM EST Records are in [facility] for review documented in this encounterWooster [facility] Hospital07-29-2021 History of Past illness Narrative* Problem Noted Date Resolved Date Early satiety 04/19/2021 04/19/2021 Balanitis 11/25/2016 06/20/2021 Gall stones 08/15/2015 01/16/2016 Overview: Seen on ER CT 07/30/2015 Well adult exam 08/29/2014 05/17/2016 Overview: Last done 08/29/2014 Left knee pain 07/20/2014 01/16/2016 Overview: contussion and abrassion from fall. IBS (irritable bowel syndrome) 01/19/2014 0 01/16/2016 documented as of this encounter (statuses as of 12/19/2021) [facility] of [facility] illness Narrative* Problem Noted Date Resolved Date Early satiety 04/19/2021 04/19/2021 Balanitis 11/25/2016 06/20/2021 Gall stones 08/15/2015 01/16/2016 Overview: Seen on ER CT 07/30/2015 Well adult exam 08/29/2014 05/17/2016 Overview: Last done 08/29/2014 Left knee pain 07/20/2014 01/16/2016 Overview: contussion and abrassion from fall. IBS (irritable bowel syndrome) 01/19/2014 0 01/16/2016 documented as of this encounter (statuses as of 01/03/2022) [facility] of [facility] illness Narrative* Problem Noted Date Resolved Date Early satiety 04/19/2021 04/19/2021 Balanitis 11/25/2016 06/20/2021 Gall stones 08/15/2015 01/16/2016 Overview: Seen on ER CT 07/30/2015 Well adult exam 08/29/2014 05/17/2016 Overview: Last done 08/29/2014 Left knee pain 07/20/2014 01/16/2016 Overview: contussion and abrassion from fall. IBS (irritable bowel syndrome) 01/19/2014 0 01/16/2016 documented as of this encounter (statuses as of 01/28/2022) [facility] Narrative* Problem Noted Date Resolved Date Early satiety 04/19/2021 04/19/2021 Balanitis 11/25/2016 06/20/2021 Gall stones 08/15/2015 01/16/2016 Overview: Seen on ER CT 07/30/2015 Well adult exam 08/29/2014 05/17/2016 Overview: Last done 08/29/2014 Left knee pain 07/20/2014 01/16/2016 Overview: contussion and abrassion from fall. IBS (irritable bowel syndrome) 01/19/2014 0 01/16/2016 documented as of this encounter (statuses as of 02/20/2022) [facility] Narrative* Problem Noted Date Resolved Date Early satiety 04/19/2021 04/19/2021 Balanitis 11/25/2016 06/20/2021 Gall stones 08/15/2015 01/16/2016 Overview: Seen on ER CT 07/30/2015 Well adult exam 08/29/2014 05/17/2016 Overview: Last done 08/29/2014 Left knee pain 07/20/2014 01/16/2016 Overview: contussion and abrassion from fall. IBS (irritable bowel syndrome) 01/19/2014 0 01/16/2016 documented as of this encounter (statuses as of 02/28/2022) [facility] Narrative* Problem Noted Date Resolved Date Early satiety 04/19/2021 04/19/2021 Balanitis 11/25/2016 06/20/2021 Gall stones 08/15/2015 01/16/2016 Overview: Seen on ER CT 07/30/2015 Well adult exam 08/29/2014 05/17/2016 Overview: Last done 08/29/2014 Left knee pain 07/20/2014 01/16/2016 Overview: contussion and abrassion from fall. IBS (irritable bowel syndrome) 01/19/2014 0 01/16/2016 documented as of this encounter (statuses as of 03/07/2022) [facility] Narrative* Problem Noted Date Resolved Date Early satiety 04/19/2021 04/19/2021 Balanitis 11/25/2016 06/20/2021 Gall stones 08/15/2015 01/16/2016 Overview: Seen on ER CT 07/30/2015 Well adult exam 08/29/2014 05/17/2016 Overview: Last done 08/29/2014 Left knee pain 07/20/2014 01/16/2016 Overview: contussion and abrassion from fall. IBS (irritable bowel syndrome) 01/19/2014 0 01/16/2016 documented as of this encounter (statuses as of 03/11/2022) [facility] Narrative* Problem Noted Date Resolved Date Early satiety 04/19/2021 04/19/2021 Balanitis 11/25/2016 06/20/2021 Gall stones 08/15/2015 01/16/2016 Overview: Seen on ER CT 07/30/2015 Well adult exam 08/29/2014 05/17/2016 Overview: Last done 08/29/2014 Left knee pain 07/20/2014 01/16/2016 Overview: contussion and abrassion from fall. IBS (irritable bowel syndrome) 01/19/2014 0 01/16/2016 documented as of this encounter (statuses as of 03/13/2022) [facility] Narrative* Problem Noted Date Resolved Date Early satiety 04/19/2021 04/19/2021 Balanitis 11/25/2016 06/20/2021 Gall stones 08/15/2015 01/16/2016 Overview: Seen on ER CT 07/30/2015 Well adult exam 08/29/2014 05/17/2016 Overview: Last done 08/29/2014 Left knee pain 07/20/2014 01/16/2016 Overview: contussion and abrassion from fall. IBS (irritable bowel syndrome) 01/19/2014 0 01/16/2016 documented as of this encounter (statuses as of 05/16/2022) [facility] Narrative* Problem Noted Date Resolved Date Early satiety 04/19/2021 04/19/2021 Balanitis 11/25/2016 06/20/2021 Gall stones 08/15/2015 01/16/2016 Overview: Seen on ER CT 07/30/2015 Well adult exam 08/29/2014 05/17/2016 Overview: Last done 08/29/2014 Left knee pain 07/20/2014 01/16/2016 Overview: contussion and abrassion from fall. IBS (irritable bowel syndrome) 01/19/2014 0 01/16/2016 documented as of this encounter (statuses as of 05/20/2022) [facility] Narrative* Problem Noted Date Resolved Date Early satiety 04/19/2021 04/19/2021 Balanitis 11/25/2016 06/20/2021 Gall stones 08/15/2015 01/16/2016 Overview: Seen on ER CT 07/30/2015 Well adult exam 08/29/2014 05/17/2016 Overview: Last done 08/29/2014 Left knee pain 07/20/2014 01/16/2016 Overview: contussion and abrassion from fall. IBS (irritable bowel syndrome) 01/19/2014 0 01/16/2016 documented as of this encounter (statuses as of 05/23/2022) [facility] Narrative* Problem Noted [...] of this encounter (statuses as of 06/10/2022) [facility] Narrative* Problem Noted [...] of this encounter (statuses as of 05/23/2023) [facility] Narrative* Problem Noted [...] of this encounter (statuses as of 06/30/2023) [facility] Narrative* Problem Noted [...] of this encounter (statuses as of 07/04/2023) [facility] Narrative* Problem Noted [...] of this encounter (statuses as of 07/09/2023) [facility] Narrative* Problem Noted [...] of this encounter (statuses as of 07/14/2023) [facility] Narrative* Problem Noted [...] of this encounter (statuses as of 07/28/2023) [facility] Narrative* Problem Noted [...] of this encounter (statuses as of 08/29/2023) [facility] No data available for this section [facility] Evaluation note* Diagnosis Essential hypertension Unspecified essential hypertension documented [facility] this encounter [facility]* Diagnosis Type 2 diabetes mellitus with both eyes affected by moderate nonproliferative retinopathy without macular edema, without long-term current use of insulin (HCC)- Primary documented [facility] this encounter [facility]* Diagnosis Gastroparesis- Primary [facility]* Diagnosis Gastroparesis- Primary [facility] encounter [facility]* Diagnosis Gastroparesis- Primary [facility] encounter [facility]* Diagnosis Type 2 diabetes mellitus without complication, without long-term current use of insulin (HCC)- Primary Gastroparesis Dietary counseling and surveillance Dietary surveillance and counseling documented in this encounter [facility] noteNo assessment information availableWRegional Medical Center Work Phone: Evaluation note* Diagnosis Bruise- Primary Contusion of unspecified site Soft tissue mass Disorders of soft tissue, unspecified Essential hypertension Unspecified essential hypertension [facility]* Diagnosis Bruise- Primary Contusion of unspecified site Soft tissue mass Disorders of soft tissue, unspecified documented [facility] this encounter [facility]* Diagnosis Primary hypertension- Primary Unspecified essential hypertension Type 2 diabetes mellitus without complication, without long-term current use of insulin (HCC) Excessive cerumen in ear canal, bilateral Encounter for immunization Need for other specified prophylactic vaccination against single bacterial disease documented in this encounter [facility]* Diagnosis Acute suprapubic pain- Primary Abdominal pain, other specified site Abdominal cramping Abdominal pain, unspecified site Bilateral impacted cerumen Impacted cerumen documented in this encounter [facility]* Diagnosis Primary hypertension- Primary Unspecified essential hypertension Gastroparesis Lower abdominal pain Abdominal pain, other specified site Abdominal cramping Abdominal pain, unspecified site Type 2 diabetes mellitus without complication, without long-term current use of insulin ([facility]) Encounter for therapeutic drug monitoring Screening, lipid Screening for lipoid disorders documented in this encounter [facility]* Diagnosis Acute suprapubic pain Abdominal pain, other specified site Abdominal cramping Abdominal pain, unspecified site documented in this encounter [facility]* Diagnosis Type 2 diabetes mellitus without complication, without long-term current use of insulin (HCC)- Primary Primary hypertension Unspecified essential hypertension Gastroparesis Obesity, Class I, BMI 30-34.9 Obesity, unspecified Encounter for therapeutic drug monitoring documented in this encounter [facility] note* Diagnosis Type 2 diabetes (HCC)- Primary documented in this encounter [facility]* Diagnosis Pain and swelling of left lower leg- Primary Cellulitis of left lower leg Cellulitis and abscess of leg, except foot documented in this encounter [facility] note* Diagnosis Cellulitis of left lower extremity- Primary Cellulitis and abscess of leg, except foot Type 2 diabetes mellitus with hyperglycemia, without long-term current use of insulin (HCC) Primary hypertension Unspecified essential hypertension Problems related to health literacy Encounter for therapeutic drug monitoring documented in this encounter [facility] note* Diagnosis Pain of upper abdomen- Primary Abdominal pain, other specified site Diastasis recti Diastasis of muscle documented in this encounter [facility]* Diagnosis Vitreous floaters of left eye- Primary Type 2 diabetes mellitus without complication, without long-term current use of insulin (HCC) Bilateral impacted cerumen Impacted cerumen documented in this encounter [facility] Discharge instructions Additional Instructions Please follow-up outpatient. Use the dental referral listWRegional Medical Center Work Phone: Reason for referral (narrative)* Diagnostic Procedure Only (Routine) - Authorized Specialty Diagnoses / Procedures Referred By Contac t Referred To Contact [facility] Diagnoses Acute suprapubic pain Abdominal cramping Procedures US KIDNEY/BLADDER US RETROPERITONEAL REAL TIME W/IMAGE COMPLETE Evelyne Christiansen APRN.SOLAR PHOTOVOLTAIC CREW LEAD [address] [place] [address] [place] [address] Referral ID Status Reason Start Date Expiration Date Visits Requested Visits Authorized [id number] Authorized Auto-Generat ed Referral 05/23/2023 06/21/2024 1 1 [facility] for referral (narrative)* Diagnostic Procedure Only (Routine) - Closed Specialty Diagnoses / Procedures Referred By Contac t Referred To Contact [facility] Diagnoses Acute suprapubic pain Abdominal cramping Procedures US KIDNEY/BLADDER US RETROPERITONEAL REAL TIME W/IMAGE COMPLETE Evelyne Christiansen APRN.SOLAR PHOTOVOLTAIC CREW LEAD [address] [place] [address] [place] [address] Referral ID Status Reason Start Date Expiration Date V isits Requested Visits Authorized [id number] Closed Auto-Generate d Referral 05/23/2023 06/21/2024 1 1 [facility] for referral (narrative)* Outpatient Procedure (Urgent) - Pending Review Specialty Diagnoses / Procedures Referred By Contac t Referred To Contact [facility] Diagnoses Pain and swelling of left lower leg Procedures US LEG VEIN DVT UNL VAS LAB DUP-SCAN XTR VEINS UNILATERAL/LIMITED STUDY Carito Key APRN.SOLAR PHOTOVOLTAIC CREW LEAD [address] [place] [phone] [facility] [address] [facility] [address] Referral ID Status Reason Start Date Expiration Date Visits Requested Visits Authorized [id number] Pending Review Auto-Generat ed Referral 03/30/2024 03/30/2025 1 1 * Diagnostic Procedure Only (Urgent) - Pending Review Specialty Diagnoses / Procedures Referred By Contac t Referred To Contact [facility] Diagnoses Pain and swelling of left lower leg Procedures US DVT LOWER LEFT DUP-SCAN XTR VEINS UNILATERAL/LIMITED STUDY Carito Key, LUDIVINA.[address] [place] [address] [place] [address] Referral ID Status Reason Start Date Expiration Date Visits Requested Visits Authorized [id number] Pending Review Auto-Generat ed Referral 03/30/2024 04/29/2025 1 1 [facility] Advance Directives No Advanced Directives Records FoundDocuments on File Type Date 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 Advance Directive(s) 04/19/2021 8:49 AM Documents on File Type Date 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 Advance Directive(s) 04/19/2021 8:49 AM Advance Directive Response Recorded Date/ Time Advance Directives No October 25, 2017 10:38pm Living Will No March 10, 2022 5:55pm Power of Blower Installer No March 10 5:55pm Advance Directive Response Recorded Date/ Time Advance Directives No October 25, 2017 10:38pm Living Will No March 11, 2022 1:12pm Power of Blower Installer No March 11 1:12pm Advance Directive Response Recorded Date/ Time Advance Directives No October 25, 2017 10:38pm Living Will No March 12, 2022 11:44am Power of Blower Installer No March 12 11:44am Advance Directive Response Recorded Date/ Time Advance Directives No October 25, 2017 10:38pm Living Will No July 14 9:43am Power of Blower Installer No July 14, 2023 9:43am Advance Directive Response Recorded Date/ Time Advance Directives No October 25, 2017 9:38pm Living Will No November 02, 024 4:20pm Power of Blower Installer No November 02, 2023 4:20pm Advance Directive Response Recorded Date/ Time Advance Directives No October 25, 2017 9:38pm Living Will No November 28, 2023 4:48pm Power of Blower Installer No November 27 4:48pm Advance Directive Response Recorded Date/ Time Living Will No October 09 5:26pm Do you have a Healthcare Power of Blower Installer? No October 09, 2024 5:26pm Advance Directives No October 25, 2017 10:38pm Medications Administered Section Active Administered Medications - up to 3 most recent administrations Medication Order MAR Action Action Date Dose Rate Site fluorescein-benoxinate 0.25-0.4 % 1 Drop (FLURESS) 1 Drop, BOTH EYES, DIRECTED, Starting on Fri01/28/22 at 1000, Until Fri01/28/22 at 2159, Administer for applanation tonometry. In the event of a Fluress shortage, administer Renita-Fluor 1 drop into both eyes as directed [...] Until Fri01/28/22 at 2159, Administer for dilation Given 01/28/2022 10:00 AM EDT 1 Drop Reason for Referral Specialty Diagnoses / Procedures Referred By Constantino t Referred To Contact Nutrition Diagnoses Gastroparesis Procedures CONSULT TO NUTRITION THERAPY OFFICE/OUTPATIENT [facility] 60-[place] [address] [facility] [address] [place] [id number] Referral ID Status Reason Start Date Expiration Date Visits Requested Visits Authorized [id number] Authorized PCP Requested Referral 02/20/2022 02/20/2023 1 1 Specialty Diagnoses / Procedures Referred By Constantino t Referred To Contact General Surgery Diagnoses Lower abdominal pain Abdominal cramping Procedures CONSULT TO GENERAL SURGERY OFFICE/OUTPATIENT [facility] 60-74 MINUTES Evelyne Christiansen APRN.[employer] [address] [place] [address] Referral ID Status Reason Start Date Expiration Date Visits Requested Visits Authorized [id number] Authorized PCP Requested Referral 3 07/03/2024 1 1 Specialty Diagnoses / Procedures Referred By Contac t Referred To Contact Gastroenterology Diagnoses Lower abdominal pain Abdominal cramping Gastroparesis Procedures CONSULT TO GASTROENTEROLOGY OFFICE/OUTPATIENT [facility] 60-74 MINUTES Evelyne Christiansen APRN.[employer] [address] [place] [address] Referral ID Status Reason Start Date Expiration Date Visits Requested Visits Authorized [id number] Authorized PCP Requested Referral 3 07/03/2024 1 1 Specialty Diagnoses / Procedures Referred By Contac t Referred To Contact CT IMAGING Diagnoses Pain of upper abdomen Diastasis recti Procedures CT ABD/PEL W IVCON CT ABD & PELVIS W/CONTRAST Denys Landaverde MD [address] [place] [address] Ct Imaging [facility] Referral ID Status Reason Start Date Expiration Date Visits Requested Visits Authorized [id number] Authorized Auto-Generat ed Referral 10/11/2024 11/10/2025 1 1 Chief Complaint and Reason for Visit Chief Complaint ABD Chief Complaint ABD VOMITING Chief Complaint ABD VOMITING abd pain, n/v Chief Complaint abd ABD PAIN Chief Complaint ABD PAIN DENTAL Chief Complaint DENTAL ABD PAIN Chief Complaint Admit Date abd pain October 09, 2024 4 :01pm ED F/U- HERNIA-S/P December 08, 2024 2:2 0pm Cyclical vomiting syndrome December 16, 025 9:09am INT LABS December 16, 2024 10: 23am Reason for Visit Admit Date Hernia of abdominal wall December 08 2:20pm Vomiting bile December 08, 2024 2:2 0pm Combined abdominal and pelvic pain December 16, 2024 9:09am Gastroparesis December 16, 2024 9:0 9am Periumbilical abdominal pain December 16, 2024 9:09am Steatosis, liver December 16, 2024 9:0 9am Weight loss December 16, 2024 9:0 9am Vomiting bile December 16, 2024 9:0 9am Chief Complaint Admit Date abd pain October 09, 2024 4 :01pm ED F/U- HERNIA-S/P December 08, 2024 2:2 0pm Cyclical vomiting syndrome December 16 025 9:09am INT LABS December 16, 2024 10: 23am LIVER STENOSIS December 25, 2024 9:05 am Summary Purpose Family History No Family History Records Found Additional Source Comments Source Comments (unrecognize d section and content) In the event this informatio n is protected by the Federal Confidentiality of Alcohol and Drug Abuse Patient Records regulations: The Federal rules restrict any use of the information to criminally investigate or prosecute any alcohol or drug abuse patient.[facility] the event this information is protected by the Federal Confidentiality of Alcohol and Drug Abuse Patient Records regulations: The Federal rules restrict any use of the information to criminally investigate or prosecute any alcohol or drug abuse patient.[facility] the event this information is protected by the Federal Confidentiality of Alcohol and Drug Abuse Patient Records regulations: The Federal rules restrict any use of the information to criminally investigate or prosecute any alcohol or drug abuse patient.[facility] the event this information is protected by the Federal Confidentiality of Alcohol and Drug Abuse Patient Records regulations: The Federal rules restrict any use of the information to criminally investigate or prosecute any alcohol or drug abuse patient.[facility] the event this information is protected by the Federal Confidentiality of Alcohol and Drug Abuse Patient Records regulations: The Federal rules restrict any use of the information to criminally investigate or prosecute any alcohol or drug abuse patient.[facility] the event this information is protected by the Federal Confidentiality of Alcohol and Drug Abuse Patient Records regulations: The Federal rules restrict any use of the information to criminally investigate or prosecute any alcohol or drug abuse patient.[facility] the event this information is protected by the Federal Confidentiality of Alcohol and Drug Abuse Patient Records regulations: The Federal rules restrict any use of the information to criminally investigate or prosecute any alcohol or drug abuse patient.[facility] the event this information is protected by the Federal Confidentiality of Alcohol and Drug Abuse Patient Records regulations: The Federal rules restrict any use of the information to criminally investigate or prosecute any alcohol or drug abuse patient.[facility] the event this information is protected by the Federal Confidentiality of Alcohol and Drug Abuse Patient Records regulations: The Federal rules restrict any use of the information to criminally investigate or prosecute any alcohol or drug abuse patient.[facility] the event this information is protected by the Federal Confidentiality of Alcohol and Drug Abuse Patient Records regulations: The Federal rules restrict any use of the information to criminally investigate or prosecute any alcohol or drug abuse patient.[facility] the event this information is protected by the Federal Confidentiality of Alcohol and Drug Abuse Patient Records regulations: The Federal rules restrict any use of the information to criminally investigate or prosecute any alcohol or drug abuse patient.[facility] the event this information is protected by the Federal Confidentiality of Alcohol and Drug Abuse Patient Records regulations: The Federal rules restrict any use of the information to criminally investigate or prosecute any alcohol or drug abuse patient.[facility] the event this information is protected by the Federal Confidentiality of Alcohol and Drug Abuse Patient Records regulations: The Federal rules restrict any use of the information to criminally investigate or prosecute any alcohol or drug abuse patient.[facility] the event this information is protected by the Federal Confidentiality of Alcohol and Drug Abuse Patient Records regulations: The Federal rules restrict any use of the information to criminally investigate or prosecute any alcohol or drug abuse patient.[facility] the event this information is protected by the Federal Confidentiality of Alcohol and Drug Abuse Patient Records regulations: The Federal rules restrict any use of the information to criminally investigate or prosecute any alcohol or drug abuse patient.[facility] the event this information is protected by the Federal Confidentiality of Alcohol and Drug Abuse Patient Records regulations: The Federal rules restrict any use of the information to criminally investigate or prosecute any alcohol or drug abuse patient.[facility] the event this information is protected by the Federal Confidentiality of Alcohol and Drug Abuse Patient Records regulations: The Federal rules restrict any use of the information to criminally investigate or prosecute any alcohol or drug abuse patient.[facility] the event this information is protected by the Federal Confidentiality of Alcohol and Drug Abuse Patient Records regulations: The Federal rules restrict any use of the information to criminally investigate or prosecute any alcohol or drug abuse patient.[facility] the event this information is protected by the Federal Confidentiality of Alcohol and Drug Abuse Patient Records regulations: The Federal rules restrict any use of the information to criminally investigate or prosecute any alcohol or drug abuse patient.[facility]In the event this information is protected by the Federal Confidentiality of Alcohol and Drug Abuse Patient Records regulations: The Federal rules restrict any use of the information to criminally investigate or prosecute any alcohol or drug abuse patient.[facility] the event this information is protected by the Federal Confidentiality of Alcohol and Drug Abuse Patient Records regulations: The Federal rules restrict any use of the information to criminally investigate or prosecute any alcohol or drug abuse patient.[facility] the event this information is protected by the Federal Confidentiality of Alcohol and Drug Abuse Patient Records regulations: The Federal rules restrict any use of the information to criminally investigate or prosecute any alcohol or drug abuse patient.[facility]In the event this information is protected by the Federal Confidentiality of Alcohol and Drug Abuse Patient Records regulations: The Federal rules restrict any use of the information to criminally investigate or prosecute any alcohol or drug abuse patient.[facility] the event this information is protected by the Federal Confidentiality of Alcohol and Drug Abuse Patient Records regulations: The Federal rules restrict any use of the information to criminally investigate or prosecute any alcohol or drug abuse patient.[facility] the event this information is protected by the Federal Confidentiality of Alcohol and Drug Abuse Patient Records regulations: The Federal rules restrict any use of the information to criminally investigate or prosecute any alcohol or drug abuse patient.[facility]In the event this information is protected by the Federal Confidentiality of Alcohol and Drug Abuse Patient Records regulations: The Federal rules restrict any use of the information to criminally investigate or prosecute any alcohol or drug abuse patient.[facility]In the event this information is protected by the Federal Confidentiality of Alcohol and Drug Abuse Patient Records regulations: The Federal rules restrict any use of the information to criminally investigate or prosecute any alcohol or drug abuse patient.[facility]In the event this information is protected by the Federal Confidentiality of Alcohol and Drug Abuse Patient Records regulations: The Federal rules restrict any use of the information to criminally investigate or prosecute any alcohol or drug abuse patient.[facility] Reason for Visit (unrecogniz ed section and content) Reason Comments Appointment Reason Comments Refill Request Reason Comments Diabetes Reason Comments Gastroparesis New Patient Reason Comments Consult Reason Comments Patient Education Assessment Specialty Diagnoses / Procedures Referred By Contac t Referred To Contact Nutrition Diagnoses Gastroparesis Procedures CONSULT TO NUTRITION THERAPY OFFICE/OUTPATIENT NEW HIGH MDM 60-74 MINUTES Lionel Pressley MD [facility] [address] [place] [address] Referral ID Status Reason Start Date Expiration Date V isits Requested Visits Authorized [id number] Closed PCP Requested Referral 02/20/2022 02/20/2023 1 1 Reason Comments Vomiting Reason Comments Bleeding/Bruising R arm bruised, lump x 4 days Reason Comments Clinical Update Reason Comments Recheck Bruise follow up Reason Comments Headache x 2 weeks. Center of forehead Reason Comments ER F/U [facility] ER 05/19/2023 fo r abdominal pain with vomiting Ear Problem trouble hearing out of ears and question serum impaction Reason Comments Recheck Abdominal pain Reason Comments Radiology US Specialty Diagnoses / Procedures Referred By Contac t Referred To Contact US IMAGING Diagnoses Acute suprapubic pain Abdominal cramping Procedures US KIDNEY/BLADDER US RETROPERITONEAL REAL TIME W/IMAGE COMPLETE Evelyne Christiansen APRN.[employer] [address] [place] [address] [place] [address] Referral ID Status Reason Start Date Expiration Date V isits Requested Visits Authorized [id number] Closed Auto-Generate d Referral 05/23/2023 06/21/2024 1 1 Reason Comments Follow Up 4 weeks Reason Comments Appointment Primary Care Pharmac y Reason Comments left foot and ankle swelling X 5 days Specialty Diagnoses / Procedures Referred By Contac t Referred To Contact [facility] Diagnoses Left foot/ankle swelling x5days Procedures EST SAME DAY [facility] [address] [place] [address] Referral ID Status Reason Start Date Expiration Date Visits Requested Visits Authorized [id number] Pending Review Financial Clearance Required - Self Pay 03/30/2024 06/28/2024 1 1 Reason Comments Results Reason Comments Edema left lower leg/ankle x 1 week warm feeling and painful when walks on it Reason Comments Consult Umbilical Hernia Reason Comments Eye Problem LT eye Reason Onset Date Comments Diabetes 11/30/2024 Care Teams (unrecognized sec tion and content) Hand Collator Relationship Specialty Start Date End Date Lisa Matos MD [address] [place] [address] PCP - General Internal Medicine 10/24/20 Aly Noriega [facility] [address] [place] [address] Pharmacist Pharmacy 08/10/21 Hand Collator Relationship Specialty Start Date End Date Lisa Matos MD [address] [place] [address] PCP - General Internal Medicine 10/24/20 Aly Noriega [facility] [address] [place] [address] Pharmacist Pharmacy 08/10/21 Hand Collator Relationship Specialty Start Date End Date Lisa Matos MD [address] [place] [address] PCP - General Internal Medicine 10/24/20 Aly Noriega [facility] [address] [place] [address] Pharmacist Pharmacy 08/10/21 Hand Collator Relationship Specialty Start Date End Date Lisa Matos MD [address] [place] [address] PCP - General Internal Medicine 10/24/20 [facility] [address] [place] [address] Pharmacist Pharmacy 08/10/21 Hand Collator Relationship Specialty Start Date End Date Lisa Matos MD [address] [place] [address] PCP - General Internal Medicine 10/24/20 [facility] [address] [place] [address] Pharmacist Pharmacy 08/10/21 Hand Collator Relationship Specialty Start Date End Date Lisa Matos MD [address] [place] [address] PCP - General Internal Medicine 10/24/20 [facility] [address] [place] [address] Pharmacist Pharmacy 08/10/21 Hand Collator Relationship Specialty Start Date End Date Lisa Matos MD [address] [place] [address] PCP - General Internal Medicine 10/24/20 [place] [facility] [address] [place] [address] Pharmacist Pharmacy 08/10/21 Hand Collator Relationship Specialty Start Date End Date Preston Novoa MD [address] [place] [address] PCP - General Internal Medicine 7/20/22 Aly Noriega, [facility] [address] [facility] [place] [address] Pharmacist Pharmacy 08/10/21 Hand Collator Relationship Specialty Start Date End Date Preston Novoa MD [address] [facility] [place] [address] PCP - General Internal Medicine 04/10/22 LeannAly, [facility] [address] [facility] [place] [address] Pharmacist Pharmacy 08/10/21 Hand Collator Relationship Specialty Start Date End Date Preston Novoa MD [address] [facility] [place] [address] PCP - General Internal Medicine 04/10/22 Leann Aly, [facility] [address] [facility] [place] [address] Pharmacist Pharmacy 08/10/21 Hand Collator Relationship Specialty Start Date End Date Preston Novoa MD [address] [facility] [place] [address] PCP - General Internal Medicine 04/10/22 Aly Noriega, [facility] [address] [facility] [place] [address] Pharmacist Pharmacy 08/10/21 Hand Collator Relationship Specialty Start Date End Date Preston Novoa MD [address] [facility] [address] PCP - General Internal Medicine 04/10/22 Aly Noriega, [facility] [address] [facility] [place] [address] Pharmacist Pharmacy 08/10/21 Hand Collator Relationship Specialty Start Date End Date Preston Novoa MD [address] [facility] [address] PCP - General Internal Medicine 04/10/22 Ottosen, Aly, [facility] [address] [facility] [place] [address] Pharmacist Pharmacy 08/10/21 Hand Collator Relationship Specialty Start Date End Date Preston Novoa MD [address] [facility] [address] PCP - General Internal Medicine 04/10/22 [facility] [address] [place] [address] Pharmacist Pharmacy 08/10/21 Hand Collator Relationship Specialty Start Date End Date Preston Novoa MD [address] [place] [address] PCP - General Internal Medicine 04/10/22 [facility] [address] [place] [address] Pharmacist Pharmacy 08/10/21 Team Status: Active Member Role Status Dates Huang Martin DO Family Provider Active Nasra Rice PRODUCT DEVELOPMENT SPECIALIST, PRODUCT DEVELOPMENT SPECIALIST-C Primary Care Provider Active Team Status: Inactive Member Role Status Dates Nasra Rice PRODUCT DEVELOPMENT SPECIALIST, PRODUCT DEVELOPMENT SPECIALIST-C Primary Care Provider Active Dr. Frantz Connors MD Attending Provider, Emergency Provider Active Team Status: Inactive Member Role Status Dates Nasra Rice PRODUCT DEVELOPMENT SPECIALIST, PRODUCT DEVELOPMENT SPECIALIST-C Primary Care Provider Active Dr. Joey Encarnacion MD Emergency Provider Active Hand Collator Relationship Specialty Start Date End Date Preston Novoa MD [address] [place] [address] PCP - General Internal Medicine 04/10/22 LeannAly padgett, [facility] [address] [place] [address] Pharmacist Pharmacy 08/10/21 Hand Collator Relationship Specialty Start Date End Date Preston Novoa MD [address] [place] [address] PCP - General Internal Medicine 04/10/22 [facility] [address] [place] [address] Pharmacist Pharmacy 08/10/21 Hand Collator Relationship Specialty Start Date End Date Preston Novoa MD [address] [place] [address] PCP - General Internal Medicine 04/10/22 [facility] [address] [place] [address] Pharmacist Pharmacy 08/10/21 Team Status: Inactive Member Role Status Dates Nasra Rice PRODUCT DEVELOPMENT SPECIALIST, PRODUCT DEVELOPMENT SPECIALIST-C Primary Care Provider Active Dr. Joey Encarnacion MD Attending Provider, Emergency Provider Active Team Status: Inactive Member Role Status Dates Nasra Rice PRODUCT DEVELOPMENT SPECIALIST, PRODUCT DEVELOPMENT SPECIALIST-C Primary Care Provider Active Dr. Frantz Connors MD Emergency Provider Active Team Status: Inactive Member Role Status Dates Nasra Rice PRODUCT DEVELOPMENT SPECIALIST, PRODUCT DEVELOPMENT SPECIALIST-C Primary Care Provider Active Dr. Sandeep Mccray DO Emergency Provider Active Hand Collator Relationship Specialty Start Date End Date Preston Novoa MD [address] [place] [address] PCP - General Internal Medicine 04/10/22 OttosenAly, [facility] [address] [place] [address] Pharmacist Pharmacy 08/10/21 Hand Collator Relationship Specialty Start Date End Date Preston Novoa MD [address] [place] [address] PCP - General Internal Medicine 04/10/22 OttosenAly, [facility] [address] [facility] [place] [address] Pharmacist Pharmacy 08/10/21 Hand Collator Relationship Specialty Start Date End Date Preston Novoa MD [address] [facility] [place] [address] PCP - General Internal Medicine 04/10/22 Ott[place] Aly, [facility] [address] [facility] [place] [address] Pharmacist Pharmacy 08/10/21 Hand Collator Relationship Specialty Start Date End Date Preston Novoa MD [address] [facility] [address] PCP - General Internal Medicine 04/10/22 Ott[place] Aly, [facility] [address] [facility] [place] [address] Pharmacist Pharmacy 08/10/21 Hand Collator Relationship Specialty Start Date End Date Preston Novoa MD [address] [facility] [place] [address] PCP - General Internal Medicine 04/10/22 Ott[place] Aly, [facility] [address] [facility] [place] [address] Pharmacist Pharmacy 08/10/21 Hand Collator Relationship Specialty Start Date End Date Preston Novoa MD [address] [facility] [place] [address] PCP - General Internal Medicine 04/10/22 Ott[place] Aly, [facility] [address] [facility] [place] [address] Pharmacist Pharmacy 08/10/21 Nasra Rice, AUTOMOTIVE INTERNET SALES MANAGER.LEATHER TACKER [address] [place] [address] [facility] Internal Medicine 08/30/24 Evelyne Christiansen AUTOMOTIVE INTERNET SALES MANAGER.[employer]AR [employer]OVOL[employer]IC CREW LEAD [address] [place] [address] [facility] [place] Internal Medicine 08/30/24 Hand Collator Relationship Specialty Start Date End Date Preston Novoa MD [address] [facility] [address] PCP - General Internal Medicine 04/10/22 [facility] [address] [place] [address] Pharmacist Pharmacy 08/10/21 Nasra Rice, AUTOMOTIVE INTERNET SALES MANAGER.LEATHER TACKER [address] [place] [address] [facility] Internal Medicine 08/30/24 Evelyne Christiansen AUTOMOTIVE INTERNET SALES MANAGER.SOLAR PHOTOVOLTAIC CREW LEAD [address] [facility] [place] [address] [facility] Internal Medicine 08/30/24 Hand Collator Relationship Specialty Start Date End Date Preston Novoa MD [address] [facility] [address] PCP - General Internal Medicine 04/10/22 [facility] [address] [place] [address] Pharmacist Pharmacy 08/10/21 Nasra Rice, AUTOMOTIVE INTERNET SALES MANAGER.LEATHER TACKER [address] [place] [address] [facility] Internal Medicine 08/30/24 Evelyne Christiansen APRN.[employer]AR PH[employer]OVOL[employer]IC CREW LEAD [address] [facility] [address] [facility] Internal Medicine 08/30/24 Team Status: Active Member Role Status Dates Evelyne Christiansen PRODUCT DEVELOPMENT SPECIALIST, PRODUCT DEVELOPMENT SPECIALIST-C Primary Care Provider Active Team Status: Inactive Member Role Status Dates Dr. Dale Coffey MD Attending Provider Active S tart: October 09, 2024 End: October 09, 2024 Dr. Dale Coffey MD Emergency Provider Active S tart: October 09, 2024 End: October 09, 2024 Evelyne Christiansen PRODUCT DEVELOPMENT SPECIALIST, PRODUCT DEVELOPMENT SPECIALIST-C Primary Care Provider Active Start: October 09, 2024 End: October 09, 2024 Team Status: Inactive Member Role Status Dates Evelyne Christiansen PRODUCT DEVELOPMENT SPECIALIST, PRODUCT DEVELOPMENT SPECIALIST-C Primary Care Provider Active Start: December 08, 2024 End: December 08, 2024 Evelyne Christiansen PRODUCT DEVELOPMENT SPECIALIST, PRODUCT DEVELOPMENT SPECIALIST-C Referring Provider Active Start: December 08, 2024 End: December 08, 2024 Dr. Anastacio Bautista MD Attending Provider Active Start: December 08, 2024 End: December 08, 2024 Team Status: Inactive Member Role Status Dates Evelyne Christiansen PRODUCT DEVELOPMENT SPECIALIST, PRODUCT DEVELOPMENT SPECIALIST-C Primary Care Provider Active Start: December 16, 2024 End: December 16, 2024 Evelyne Christiansen PRODUCT DEVELOPMENT SPECIALIST, PRODUCT DEVELOPMENT SPECIALIST-C Referring Provider Active Start: December 16, 2024 End: December 16, 2024 Malini Mckeon NP-C Attending Provider Active Start: December 16, 2024 End: December 16, 2024 Team Status: Inactive Member Role Status Dates Evelyne Christiansen PRODUCT DEVELOPMENT SPECIALIST, PRODUCT DEVELOPMENT SPECIALIST-C Primary Care Provider Active Start: December 16, 2024 End: December 16, 2024 Malini Mckeon NP-C Attending Provider Active Start: December 16, 2024 End: December 16, 2024 Malini Mckeon NP-C Referring Provider Active Start: December 16, 2024 End: December 16, 2024 Team Status: Inactive Member Role Status Dates Evelyne Christiansen PRODUCT DEVELOPMENT SPECIALIST, PRODUCT DEVELOPMENT SPECIALIST-C Primary Care Provider Active Start: December 25, 2024 End: December 25, 2024 JEB Grimes Attending Provider Active Start: December 25, 2024 End: December 25, 2024 JEB Grimes Referring Provider Active Start: December 25, 2024 End: December 25, 2024 Goals (unrecognized section and content) Goals may be documented in a n alternate sectionGoals may be documented in an alternate sectionGoals may be documented in an alternate section No data available for this sectionGoals may be documented in an alternate sectionGoals may be documented in an alternate sectionGoals may be documented in an alternate sectionGoals may be documented in an alternate sectionGoals may be documented in an alternate section (unrecognized sect ion and content) No Status Records FoundNo Status Records FoundNo Status Records FoundNo Status Records Found INFORMATION SOURCE (unrecogn ized section and content) DATE CREATED AUTHOR 03/23/2022 [facility] [place] DATE CREATED AUTHOR AUTHOR'S ORGANIZ ATION 04/10/2023 [facility] ([place]) DATE CREATED AUTHOR AUTHOR'S ORGANIZ ATION 12/10/2024 [facility] DATE CREATED AUTHOR AUTHOR'S ORGANIZ ATION 02/22/2025 [facility] FOR RECORDS PERTAINING TO PATIENTS WHO ARE [...] BE BASED ON THE PRIMARY CLINICAL RECORDS. [employer] provides no warranty or guarantee of the accuracy or completeness of information in this document.
[2025-02-24] MEDS: Lactated Ringers 1,000 ML 15 ML IV (06:57)
--- NOTE | 2025-02-24 07:05 | PRE.ANES_ITS ---
ASA Classification* ASA Classification ASA Classification: 2 Assessment & Plan Anesthesia* Anesthesia Assessment Anesthesia Assessment: Discussed sedation and/or anesthesia options, risks, benefits, and alternatives with patient/parents/legal guardian/POA. Questions invited. The patient/parents/legal guardian/POA seems to understand and agrees to proceed with anesthesia plan. Reviewed the physical assessment, medical history, allergy history and patient home medications list prior to surgery/procedure/anesthetic and documented any changes. Performed airway and anesthesia risk assessments. Anesthesia Type Anesthesia Type: MAC History Source History Obtained from:: Patient and Chart Anesthesia Focused Assessment* Temperature: 98.4 F Pulse Rate: 62 Blood Pressure: 157/101 Respiratory Rate: 16 Pulse Ox: 99 Oxygen Delivery Method: Room Air Airway Assessment Mouth opens: >3 cm Mallampati Score: II Teeth Condition: Intact Neck Range of motion (ROM): Full ROM Focused Labs Anesthesia Preop lab: CBC WBC 14.5 K/mm3 (4.4-11.0) H 11/28/23 12: 4 RBC 5.91 M/mm3 (4.6-6.2) 11/28/23 12:11/28/23 Hgb 17.5 g/dL (13.0-16.5) H 11/28/23 12: 4 Hct 51.7 % (40-54) 11/28/23 12:11/28/23 Plt Count 411 K/mm3 (150-450) 11/28/23 12:51 11/28/23 CHEMISTRY Potassium 3.8 mmol/L (3.5-5.1) 11/28/23 12:11/28/23 Sodium 135 mmol/L (136-145) L 11/28/23 12:11/28/23 Magnesium 2.1 mg/dL (1.6-2.6) 02/01/21 06:15 02/01/21 BUN 19 mg/dL (7-18) H 11/28/23 12:11/28/23 Creatinine 0.89 mg/dL (0.70-1.30) 11/28/23 12:11/28/23 Glucose 359 mg/dL (74-106) H 11/28/23 12:51 03/08/24 POC Glucose 242 mg/dL (74-106) H 03/11/22 12:25 03/11/22 COAG Pre-Assessment Diagnosis/Proposed Procedure Planned Operative Procedure(s): COLONOSCOPY/EGD Anesthesia History 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 When Was Last Pacemaker Check QUESTION #4 FULL TEXT: You/Your Family Experience fever (hyperthermia) with Anesthesia Any additional information?: No Last Oral Intake Last Oral intake: Last Oral Intake NPO since 00:01 02/24/25 06:50 Meds taken in AM with sips of Yes 02/24/25 06:50 water? Meds patient instructed to take am of surgery Any additional information?: No PONV PONV - ball rolling machine operator: PONV - ball rolling machine operator Female No 02/18/25 16:02 HX of Motion Sickness No 02/18/25 16:02 HX of N/V After Surgery No 02/18/25 16:02 Non-Smoker Yes 02/18/25 16:02 Duration of Surgery greater No 02/18/25 16:02 than 60 minutes Number of Risk Factors 1 02/18/25 16:02 PONV Score Low Risk 02/18/25 16:02 Any additional information?: No Height & Weight Height & Weight: Anesthesia: Height & Weight Height 6 ft 1 in 02/24/25 06:50 Weight: 103.2 kg 02/24/25 06:50 Body Mass Index (BMI) 29.9 02/24/25 06:50 Respiratory Assessment Respiratory Assessment - ball rolling machine operator: Respiratory Tract Infection Hx - ball rolling machine operator Hx Respiratory Tract Infection No 02/18/25 16:02 Any additional information?: No STOP Sleep Apnea STOP Sleep Apnea - ball rolling machine operator: STOP Sleep Apnea - ball rolling machine operator Hx Hypertension Yes: CONTROLLED ON MED 02/18/25 16:02 Hx Sleep Apnea No 02/18/25 16:02 CPAP No 02/18/25 16:02 BIPAP No 02/18/25 16:02 Do you snore loudly (louder No 02/18/25 16:02 than talking or can be heard Do you often feel tired/ No 02/18/25 16:02 fatigued/ sleepy during daytime? Has anyone observed you stop No 02/18/25 16:02 breathing during sleep? STOP Results Negative 02/18/25 16:02 QUESTION #5 FULL TEXT : Do you snore loudly (louder than talking or can be heard through closed doors)? 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 Specify any problems Hx of Preganancy in last 3 N/A 02/18/25 16:02 Months Nurse Filling Out Transfusion VCHRISTIN 02/18/25 16:02 & Questions: Date: 02/18/25 02/18/25 16:02 Time: 16:03 02/18/25 16:02 Patient unable to answer at this time (ie. confused, unrespo Any additional information?: No /Reproduction History /Reproductive History - ball rolling machine operator: /Reproductive Hx- ball rolling machine operator Hx Now Gestational Age (in weeks): EDC: Hx Hx Para Hx Section SAB Any additional information?: No Active Medications Active Medications: Current Medications Generic Name Dose Route Start Last Admin Trade Name Freq PRN Reason Stop Dose Admin Lactated Ringer's 1,000 mls @ 15 mls/hr 02/24/25 06:45 02/24/25 06:57 IV 15 mls/hr .Q48H CHARLES Administration PFSH Medical History Arthritis Migraine headache Non-smoker History of echocardiogram History of stress test History of CHF (congestive heart failure) Schizophrenia Diabetes Hypertension Home Medications ?Medication ?Instructions ?Recorded ?Last Taken ?Type metformin 500 mg tablet 1,000 tab PO BID 03/11/22 History glimepiride 4 mg tablet 4 mg PO QAM 12/08/24 5 History lisinopril 40 mg tablet 40 mg PO QDAY 12/08/2402/23 History pioglitazone 15 mg tablet 15 mg PO QDAY 12/08/2402/23 History amlodipine 5 mg tablet 10 mg PO DAILY 12/16/2402/13 History atenolol 50 mg tablet 50 mg PO QDAY 12/16/2402/24 History linaclotide 72 mcg capsule 72 mcg PO QAM constipation #30 caps 12/16/24 02/23/25 Rx (Linzess) dicyclomine 20 mg tablet 20 mg PO TID 02/18/25 Unknow n History bisacodyl 5 mg tablet,delayed 5 mg PO .COMPLEX #4 tabs 02/22/25 02/23/25 Rx release (Dulcolax (bisacodyl)) Allergy/AdvReac Type Severity Reaction Status Date / Time No Known Allergies Allergy Verified 02/24/25 06:49 Family History Brother CAD (coronary artery disease) Surgical History History of laparoscopic cholecystectomy History of cholecystectomy Social History household members: spouse current occupational status: disabled Smoking Status: Former smoker alcohol intake: never substance use type: does not use Review of Systems (Anesthesia) ROS Narrative System reviewed and no additional complaints, except as documented.
[2025-02-24 07:17] LABS: Bedside Glucose 266 mg/dL (74-106)
--- NOTE | 2025-02-24 07:39 | PCM.HP.STD ---
HPI - General General Date of Admission: 02/24/25 Date of Service: 02/24/25 Chief Complaint: Nausea vomiting diarrhea weight loss HPI Narrative ANASTACIO MURILLO, is a 43 M who presents for evaluation of nausea vomiting diarrhea and weight loss. He has a tiny umbilical hernia (6mm), reports this is a 9/10 abdominal pain which has been present ever since CCX. He reports the umbilical pain was so severe a couple weeks ago he was vomiting. - although when he points to location of pain he points to mid low pelvis as location of severe pain - he does endorse umbilical pain but states this is not as severe - having abdominal pain for a while, below umbilicus, sharp pain - report she can vomit for 2-3 weeks in a row - umbilical pain, every since CCX, sharp like someone punching me - no change in pain with PO intake, bowel movement or movement - vomiting is about 1 hour after eating and he does vomit food at times - denies any fevers - denies any early satiety - he is on Metoclopramide 10mg QID GES 2020 severe gastroparesis with >50% retained at 4h - per patient CCX - emesis of bile, brown, yellow, orange - states he could only keep water down - this last episode of emesis was 2 weeks ago - vomiting episodes last for a couple weeks or more, reports he cannot keep anything down during this time - he is losing weight - reports this is unintentional but he does nt mind the weight loss - he is uncertain if his current pain is the same pain he had prior to CCX - states he used to have a BM 2-3x a day - he has a BM 2-3x a week - stools can be soft or formed - denies any bleeding - Tylenol and Aleve for abdominal pain - these help some - dicyclomine 20mg QID PRN - tylenol and aleve work better for pain - he reports GES revealed 90% retained gastric contents in 2023 B: protein shake L: fast food - but trying to get away from this D: protein, vegetable - he is not taking nay fiber supplements - he is not on a probiotic - denies any smoking or EtOH use - denies any marijuana use 8 Weeks [facility] Medical History Arthritis Migraine headache Non-smoker History of echocardiogram History of stress test History of CHF (congestive heart failure) Schizophrenia Diabetes Hypertension Home Medications ?Medication ?Instructions ?Recorded ?Last Taken ?Type metformin 500 mg tablet 1,000 tab PO BID 03/11/22 02/23/25 History glimepiride 4 mg tablet 4 mg PO QAM 12/08/24 02/23/25 History lisinopril 40 mg tablet 40 mg PO QDAY 12/08/24 02/23/25 History pioglitazone 15 mg tablet 15 mg PO QDAY 12/08/24 02/23/25 History amlodipine 5 mg tablet 10 mg PO DAILY 12/16/24 02/24/25 History atenolol 50 mg tablet 50 mg PO QDAY 12/16/24 02/24/25 History linaclotide 72 mcg capsule 72 mcg PO QAM constipation #30 caps 12/16/24 02/23/25 Rx (Linzess) dicyclomine 20 mg tablet 20 mg PO TID 02/18/25 Unknown History bisacodyl 5 mg tablet,delayed 5 mg PO .COMPLEX #4 tabs 02/22/25 02/23/25 Rx release (Dulcolax (bisacodyl)) Allergy/AdvReac Type Severity Reaction Status Date / Time No Known Allergies Allergy Verified 02/24/25 06:49 Family History Brother CAD (coronary artery disease) Surgical History History of laparoscopic cholecystectomy History of cholecystectomy Social History household members: spouse current occupational status: disabled Smoking Status: Former smoker alcohol intake: never substance use type: does not use ROS Constitutional Constitutional: Denies fatigue, fever(s), poor appetite, weight gain or weight loss Gastrointestinal Gastrointestinal: Denies belching, bloating, change in bowel habits, change in stool character, chewing difficulty, coffee ground emesis, constipation, cramping, diarrhea, dyspepsia, dysphagia, early satiety, excessive flatus, fecal incontinence, heartburn, hematemesis, hematochezia, hemorrhoids, loose stools, melena, nausea, odynophagia, rectal bleeding, tenesmus, vomiting or weight changes Vital Signs Vital Signs Vital Signs: 02/24/25 06:50 02/24/25 06:50 02/24/25 07:09 Temperature 98.4 F 98.4 F Temperature Source Temporal Pulse Rate 62 62 Respiratory Rate 16 16 Respiratory Pattern Normal Blood Pressure 157/101 H 157/101 H Blood Pressure Mean 119 Blood Pressure Source Monitor Blood Pressure Position Semi-Fowlers Blood Pressure Location Right Arm Pulse Ox 99 99 Oxygen Delivery Method Room Air Room Air Weight Weight: 227 lb 8.273 oz Body Mass Index (BMI) 29.9 Physical Exam Const alert, oriented x3, no apparent distress and healthy appearing General Appearance: cooperative GI normal to inspection, nondistended, normoactive bowel sounds, soft to palpation, non-tender and non-distended Percussion: normal to percussion Rectal Exam: deferred Results Lab / Micro Data Labs: Laboratory Results - last 24 hr 02/24/25 06:51: POC Glucose 266 H Assessment & Plan Assessment/Plan (1) Weight loss: (2) Gastroparesis: (3) Metabolic dysfunction-associated steatotic liver disease (MASLD): (4) Periumbilical abdominal pain: (5) Vomiting bile: QUALIFIERS: Nausea presence: unspecified Qualified Code(s): R11.14 - Bilious vomiting (6) Combined abdominal and pelvic pain: PLAN: Assessment and Plan Assessment and Plan (1) Vomiting bile: Status: Chronic Qualifiers: Nausea presence: unspecified Qualified Code(s): R11.14 - Bilious vomiting (2) Steatosis, liver: Status: Acute (3) Combined abdominal and pelvic pain: Status: Acute (4) Periumbilical abdominal pain: Status: Acute (5) Weight loss: Status: Acute (6) Gastroparesis: Status: Acute Orders: Orders Miscellaneous Lab Procedure Today K76.0 - Fatty (change of) liver, not elsewhere classified, R10.2 - Pelvic and perineal pain, R10.33 - Periumbilical pain, R10.9 - Unspecified abdominal pain, R11.14 - Bilious vomiting Hepatitis A AB, Total Today K76.0 - Fatty (change of) liver, not elsewhere classified, R10.2 - Pelvic and perineal pain, R10.33 - Periumbilical pain, R10.9 - Unspecified abdominal pain, R11.14 - Bilious vomiting Hepatitis B Core Ab Total Today K76.0 - Fatty (change of) liver, not elsewhere classified, R10.2 - Pelvic and perineal pain, R10.33 - Periumbilical pain, R10.9 - Unspecified abdominal pain, R11.14 - Bilious vomiting Hepatitis B Surface Antibody Today K76.0 - Fatty (change of) liver, not elsewhere classified, R10.2 - Pelvic and perineal pain, R10.33 - Periumbilical pain, R10.9 - Unspecified abdominal pain, R11.14 - Bilious vomiting Hepatitis B Surface Antigen Today K76.0 - Fatty (change of) liver, not elsewhere classified, R10.2 - Pelvic and perineal pain, R10.33 - Periumbilical pain, R10.9 - Unspecified abdominal pain, R11.14 - Bilious vomiting Hepatitis C Antibody Today K76.0 - Fatty (change of) liver, not elsewhere classified, R10.2 - Pelvic and perineal pain, R10.33 - Periumbilical pain, R10.9 - Unspecified abdominal pain, R11.14 - Bilious vomiting ABD Limited w/ Elastography Today K76.0 - Fatty (change of) liver, not elsewhere classified, R10.2 - Pelvic and perineal pain, R10.33 - Periumbilical pain, R10.9 - Unspecified abdominal pain, R11.14 - Bilious vomiting Medications: New linaclotide (Linzess) take 30 minutes before breakfast every morning 72 mcg PO QAM 30 caps 0RF constipation pantoprazole take 30 minutes before breakfast every morning 40 mg PO QDAY 90 tabs 0RF Discontinued dicyclomine Discontinued Reason: Order Changed 20 mg PO Q6H PRN PRN abdominal pain Plan 43-year-old male presents for initial consultation with complaints of abdominal pain and vomiting. He has had an unintentional weight loss of greater than 40 pounds in the past 3 years. He is experiencing lower mid abdominal pain as well as periumbilical pain which he describes as sharp, nonradiating and present since cholecystectomy in 2015. He also complains of intermittent postprandial emesis of bile and occasionally food. Gastric emptying study completed in 2020 revealed severe gastroparesis with greater than 50% retention at 4 hours. He is taking metoclopramide 10 mg 4 times daily. We have reviewed a gastroparesis diet as well. I recommend discontinuing dicyclomine. He reports a change in bowel habits, frequency of stools has decreased from 2-3 times a day to no more than 3 times a week. He denies any bleeding. He does endorse improvement in lower pelvic abdominal pain post bowel movement. I have started him on Linzess 72 mcg and pantoprazole 40 mg once daily, and scheduled him for colonoscopy and EGD. CT scan of the abdomen and pelvis with IV contrast was completed 11/28/2023 and revealed moderate stool in the colon, pancreatic atrophy and hepatic steatosis. Labs completed at that time revealed WBC 14.5, hemoglobin 17.5, sodium 135, glucose 359, normal transaminases. I have scheduled him for an abdominal ultrasound with elastography. He will also complete additional labs and follow-up in the office post procedures. Patient Instructions: Discontinue Dicyclomine - this may be contributing to gastroparesis Linzess 72mcg once daily Complete US with Elastography Start pantoprazole 40mg daily Complete labs today Eat small meals Avoid raw fruits and vegetables follow-up in office post procedure Plan Details Follow Up:
--- NOTE | 2025-02-24 07:45 | EGD_PTH ---
PATIENT: ANASTACIO MURILLO LOC: EN U#:[id number] AGE/SX: 44/M ROOM: RE02/24/[address]: Dr. Giovanny Sharma DO : 1980 BED: DIS: 02/24/2025 SPEC #: [id number] RECD: 02/24/25 09:39 STATUS: [employer]ANG[employer] #: [id number] LINDA: 02/24/25 07:[address]: Giovanny Sharma DEPT: SURGICAL PATHOLOGY RECD BY: Mikel Gay ENTERED: 02/24/25 10:13 SP TYPE: EGD BIOPSY OTHR DR: Alice Otto, CLINICAL AIDE-C Tissues: A - Esophagus, NOS B - Esophagus, NOS C - Gastric mucous membrane D - Duodenum, NOS Procedures: Immunohistochemical Stains Special Stain Group I Surgery Specimen Level IV GMS Stain (control) IHC Stain ADDITIONAL HEADER OPERATION: Colonoscopy, EGD with biopsy PRE-OP DIAGNOSIS: Weight loss, gastroparesis, metabolic dysfunction-associated steotactic liver disease, periumbilical abdominal pain, vomiting bile TISSUE SUBMITTED: A- Random esophagus biopsy, B- Distal esophagus biopsy, C- Gastric body biopsy, D- Duodenal ulcer biopsy MICROSCOPIC DIAGNOSIS A. Esophagus, random, biopsy: Benign squamous with acute inflammation. Fragments of fibrinopurulent debris and granulation tissue consistent with ulcer. PASD highlights a few fungal organisms in the fibrinopurulent debris - see note. IHC for HSV (herpes simplex types I&II) and CMV (cytomegalovirus) are negative. Note: Clinical correlation to rule out fungal infection vs colonization is required. B. Esophagus, distal, biopsy: Scant benign squamous mucosa. Columnar mucosa with reactive epithelial change, negative for goblet cell metaplasia. Negative for dysplasia. C. Stomach, gastric body, biopsy: Oxyntic mucosa with no specific pathologic change. IHC negative for H.pylori organisms. D. Small bowel, duodenum, ulcer, biopsy: Normal villous architecture with Ryan gland hyperplasia and gastric mucin cell metaplasia. Negative for increased intraepithelial lymphocytes. MICROSCOPIC DESCRIPTION Slides are reviewed. All matched controls reacted appropriately. These tests were developed and their performance characteristics determined by [facility]. They may not have been cleared or approved by the [place]. Food and Drug Administration. The FDA has determined that such clearance or approval is not necessary. The above immunohistochemical/dualISH markers are ordered and reviewed by the Pathologist. GROSS DESCRIPTION A. Received in formalin in a container labeled with the patient's name, date of , and random esophagus are multiple small and wispy fragments of white-pink mucosal tissue measuring 1.0 x 0.4 x 0.2 cm in aggregate. Submitted in toto in A1. B. Received in formalin in a container labeled with the patient's name, date of , and distal esophagus are 2 muñoz-pink fragments of mucosal tissue measuring 0.3 x 0.2 x 0.2 cm and 0.5 x 0.4 x 0.2 cm. Submitted in toto in B1. C. Received in formalin in a container labeled with the patient's name, date of , and gastric body biopsy for H. pylori and path are 2 muñoz-pink strips of mucosal tissue measuring 0.5 x 0.2 x 0.2 cm and 0.8 x 0.2 x 0.2 cm. Submitted in toto in C1. D. Received in formalin in a container labeled with the patient's name, date of , and duodenal ulcer biopsy are multiple muñoz-pink fragments of mucosal tissue measuring 1.3 x 0.5 x 0.3 cm in aggregate. Submitted in toto in D1. [facility] 02-24-2025 CPT:[id number]
--- NOTE | 2025-02-24 08:41 | PCM.POST.ANE ---
Anesthesia: Postop Eval I Current Vital Signs Temperature: 98 F Pulse Rate: 18 Blood Pressure: 143/97 Respiratory Rate: 18 Pulse Ox: 98 Assessment Airway patent: Yes Spontaneous unlabored respirations: Yes nausea: No Vomiting: No Anesthesia Complication: No Fluid Hydration Crystalloid volume administer (ml): 300 Total IV fluid infused: 300 Progress Note Anesthesia document: Postop Eval 1 completed: No
--- NOTE | 2025-02-24 08:46 | OP.EGD_ITS ---
Patient Name: Kristopher Posey Procedure Date: 02/24/2025 8:09 AM Date of : 1980 Age: 44 Procedure: Upper GI endoscopy Indications: Epigastric abdominal pain, Dysphagia, Heartburn, Suspected esophageal reflux, Failure to respond to medical treatment Providers: Giovanny Sharma DO Referring MD: Alice Otto Final Inspector And Tester, Final Inspector And Tester-c Medicines: Monitored Anesthesia Care Patient Profile: This is a 44 year old male. Refer to note in patient chart for documentation of history and physical. Patient has symptoms of chronic abdominal cramping, chronic abdominal distention, chronic epigastric abdominal pain, chronic dyspepsia, chronic heartburn, acute throat burning and chronic vomiting. Complications: No immediate complications. Procedure: Pre-Anesthesia Assessment: - Prior to the procedure, a History and Physical was performed, and patient medications and allergies were reviewed. The patient is competent. The risks and benefits of the procedure and the sedation options and risks were discussed with the patient. All questions were answered and informed consent was obtained. Patient identification and proposed procedure were verified by the physician in the pre-procedure area. Mental Status Examination: alert and oriented. Airway Examination: normal oropharyngeal airway and neck mobility. Respiratory Examination: clear to auscultation. CV Examination: normal. Prophylactic Antibiotics: The patient does not require prophylactic antibiotics. Prior Anticoagulants: The patient has taken no anticoagulant or antiplatelet agents except for NSAID medication. ASA Grade Assessment: II - A patient with mild systemic disease. After reviewing the risks and benefits, the patient was deemed in satisfactory condition to undergo the procedure. The anesthesia plan was to use monitored anesthesia care (MAC). Immediately prior to administration of medications, the patient was re-assessed for adequacy to receive sedatives. The heart rate, respiratory rate, oxygen saturations, blood pressure, adequacy of pulmonary ventilation, and response to care were monitored throughout the procedure. The physical status of the patient was re-assessed after the procedure. After obtaining informed consent, the endoscope was passed under direct vision. Throughout the procedure, the patient's blood pressure, pulse, and oxygen saturations were monitored continuously. The Colonoscope was introduced through the mouth, and advanced to the fourth part of the duodenum. Small bowel enteroscopy was deemed necessary. The upper GI endoscopy was accomplished without difficulty. The patient tolerated the procedure well. Scope In: 8:22:46 AM Scope Out: 8:29:24 AM Total Procedure Duration Time 0 hours 6 minutes 38 seconds Findings: LA Grade D (one or more mucosal breaks involving at least 75% of esophageal circumference) esophagitis with no bleeding was found 30 to 40 cm from the incisors. Biopsies were taken with a cold forceps for histology. Estimated blood loss was minimal. Suspect gastroparesis due to absence of peristalsis, patient symptoms and retained gastric contents. Biopsies were taken with a cold forceps for histology. Verification of patient identification for the specimen was done. Estimated blood loss was minimal. Biopsies were taken with a cold forceps for Helicobacter pylori testing. Verification of patient identification for the specimen was done. Estimated blood loss was minimal. One non-bleeding cratered duodenal ulcer with no stigmata of bleeding was found in the first portion of the duodenum. The lesion was 6 mm in largest dimension. Biopsies were taken with a cold forceps for histology. Verification of patient identification for the specimen was done. Estimated blood loss was minimal. Impression: - LA Grade D erosive esophagitis with no bleeding. Biopsied. - Gastroparesis, secondary to diabetes mellitus type I. Biopsied. - Non-bleeding duodenal ulcer with no stigmata of bleeding. Biopsied. Recommendation: - Discharge patient to home. - Resume previous diet. - Continue present medications. - Await pathology results. - Use Protonix (pantoprazole) 40 mg PO BID. - Use sucralfate tablets 1 gram PO QID for 2 months. Procedure Code(s): --- Professional --- 42668, Small intestinal endoscopy, enteroscopy beyond second portion of duodenum, not including ileum; with biopsy, single or multiple CPT copyright 2021 [employer]. All rights reserved. The codes documented in this report are preliminary and upon physician aide review may be revised to meet current compliance requirements. Giovanny Sharma DO 02/24/2025 8:46:12 AM This report has been signed electronically. Number of Addenda: 0 Note Initiated On: 02/24/2025 8:09 AM
--- NOTE | 2025-02-24 08:47 | OP.CCLET_ITS ---
02/24/2025 Alice Otto Np, Human Services Instructordereck Re : Upper GI endoscopy procedure for Kristopher Posey Dear Fam This procedure was performed on February. My impressions and recommendations are as follows: Impressions : - LA Grade D erosive esophagitis with no bleeding. Biopsied. - Gastroparesis, secondary to diabetes mellitus type I. Biopsied. - Non-bleeding duodenal ulcer with no stigmata of bleeding. Biopsied. Recommendations : - Discharge patient to home. - Resume previous diet. - Continue present medications. - Await pathology results. - Use Protonix (pantoprazole) 40 mg PO BID. - Use sucralfate tablets 1 gram PO QID for 2 months. My findings are described in the full procedure note, which is enclosed. If I can be of further assistance, please feel free to contact me at . Sincerely, Giovanny Friend, 02/24/2025 8:46:12 AM This report has been signed electronically.
--- NOTE | 2025-02-24 08:49 | OP.COLON_ITS ---
Patient Name: Kristopher Posey Procedure Date: 02/24/2025 8:30 AM Date of : 1980 Age: 44 Procedure: Colonoscopy Indications: Generalized abdominal pain, Chronic diarrhea Providers: Giovanny Sharma DO Referring MD: Alice Otto Chart Calculator, Chart Calculator-c Medicines: Monitored Anesthesia Care Patient Profile: This is a 44 year old male. Refer to note in patient chart for documentation of history and physical. Patient has symptoms of chronic abdominal cramping, chronic abdominal distention, chronic epigastric abdominal pain, chronic dyspepsia, chronic heartburn, acute throat burning and chronic vomiting. Last Colonoscopy: date unknown. Unable to locate last colonoscopy report. Complications: No immediate complications. Procedure: Pre-Anesthesia Assessment: - Prior to the procedure, a History and Physical was performed, and patient medications and allergies were reviewed. The patient is competent. The risks and benefits of the procedure and the sedation options and risks were discussed with the patient. All questions were answered and informed consent was obtained. Patient identification and proposed procedure were verified by the physician in the pre-procedure area. Mental Status Examination: alert and oriented. Airway Examination: normal oropharyngeal airway and neck mobility. Respiratory Examination: clear to auscultation. CV Examination: normal. Prophylactic Antibiotics: The patient does not require prophylactic antibiotics. Prior Anticoagulants: The patient has taken no anticoagulant or antiplatelet agents except for NSAID medication. ASA Grade Assessment: II - A patient with mild systemic disease. After reviewing the risks and benefits, the patient was deemed in satisfactory condition to undergo the procedure. The anesthesia plan was to use monitored anesthesia care (MAC). Immediately prior to administration of medications, the patient was re-assessed for adequacy to receive sedatives. The heart rate, respiratory rate, oxygen saturations, blood pressure, adequacy of pulmonary ventilation, and response to care were monitored throughout the procedure. The physical status of the patient was re-assessed after the procedure. After I obtained informed consent, the scope was passed under direct vision. Throughout the procedure, the patient's blood pressure, pulse, and oxygen saturations were monitored continuously. The Colonoscope was introduced through the anus and advanced to the hepatic flexure. The colonoscopy was performed without difficulty. The patient tolerated the procedure well. The quality of the bowel preparation was inadequate. Scope In: 8:32:04 AM Scope Out: 8:33:37 AM Total Procedure Duration Time 0 hours 1 minute 33 seconds Findings: The perianal and digital rectal examinations were normal. Copious quantities of semi-solid solid stool was found in the entire colon. Impression: - Preparation of the colon was inadequate. - Stool in the entire examined colon. - No specimens collected. Recommendation: - Discharge patient to home. - Resume previous diet. - Continue present medications. - Repeat colonoscopy because the bowel preparation was suboptimal. Procedure Code(s): --- Professional --- 43759, 53, Colonoscopy, flexible; diagnostic, including collection of specimen(s) by brushing or washing, when performed (separate procedure) CPT copyright 2021 [employer]. All rights reserved. The codes documented in this report are preliminary and upon inspector raw quartz review may be revised to meet current compliance requirements. Giovanny Sharma DO 02/24/2025 8:48:34 AM This report has been signed electronically. Number of Addenda: 0 Note Initiated On: 02/24/2025 8:30 AM
--- NOTE | 2025-02-24 08:49 | OP.CCLET_ITS ---
02/24/2025 Alice Otto Np, Court Usher-c Re : Colonoscopy procedure for Kristopher Posey Dear Fam This procedure was performed on February. My impressions and recommendations are as follows: Impressions : - Preparation of the colon was inadequate. - Stool in the entire examined colon. - No specimens collected. Recommendations : - Discharge patient to home. - Resume previous diet. - Continue present medications. - Repeat colonoscopy because the bowel preparation was suboptimal. My findings are described in the full procedure note, which is enclosed. If I can be of further assistance, please feel free to contact me at . Sincerely, Giovanny Sharma, 02/24/2025 8:48:34 AM This report has been signed electronically.
--- NOTE | 2025-02-24 09:06 | POSTOPAN2_ITS ---
Anesthesia Postop Eval I Sum Postop Eval Completion status Anesthesia document: Postop Eval 1 completed: No Anesthesia Postop Eval I Summary Anesthesia Postop Eval I Summary: Anesthesia Postop Eval I: Assessment Summary Airway patent Yes 02/24/25 08:41 [email or web address] [email or web address] Spontaneous unlabored Yes 02/24/25 08:41 DOZER OPERATOR.[email or web address] respirations Mental status nausea No 02/24/25 08:41 DOZER OPERATOR.CSIR Vomiting No 02/24/25 08:41 DOZER [email or web address].CSIR Anesthesia Postop Eval I: Fluid Summary Crystalloid volume administer 300 02/24/25 08:41 [email or web address] [email or web address].CSIR (ml) Colloids volume administered ( ml) Blood Product volume administered (ml) Total IV fluid infused 300 02/24/25 08:41 DOZER [email or web address].CSIR Anesthesia Postop Eval I: Summary Notes Anesthesia Complication No 02/24/25 08:41 DOZER OPERATOR.CSIR Anesthesia Complication Comment: Post-operative progress note Anesthesia: Postop Eval II Evaluation Mental status: Awake Pain Level: 0 nausea: No Vomiting: No
--- NOTE | 2025-02-24 09:06 | PCM.POSTANE2 ---
Anesthesia Postop Eval I Sum Postop Eval Completion status Anesthesia document: Postop Eval 1 completed: No Anesthesia Postop Eval I Summary Anesthesia Postop Eval I Summary: Anesthesia Postop Eval I: Assessment Summary Airway patent Yes 02/24/25 08:41 CALL WORKER [email or web address] Spontaneous unlabored Yes 02/24/25 08:41 CALL WORKER PERSON.CSIR respirations Mental status nausea No 02/24/25 08:41 CALL WORKER PERSON.CSIR Vomiting No 02/24/25 08:41 CALL WORKER [email or web address].CSIR Anesthesia Postop Eval I: Fluid Summary Crystalloid volume administer 300 02/24/25 08:41 CALL WORKER PERSON.CSIR (ml) Colloids volume administered ( ml) Blood Product volume administered (ml) Total IV fluid infused 300 02/24/25 08:41 CALL WORKER [email or web address].CSIR Anesthesia Postop Eval I: Summary Notes Anesthesia Complication No 02/24/25 08:41 CALL WORKER PERSON.CSIR Anesthesia Complication Comment: Post-operative progress note Anesthesia: Postop Eval II Evaluation Mental status: Awake Pain Level: 0 nausea: No Vomiting: No
== END 2025-02-24 09:20 | disposition home or self-care (01) ==
LOC: EN 06:37 → AC 06:38
PROVIDERS: PCP Internal Medicine; Referring Provider Internal Medicine; Visit Provider Internal Medicine Gastroenterology
PROC: 0DJD8ZZ Inspection of Lower Intestinal Tract, Via Natural or Artificial Opening Endoscopic (ICD-10-PCS; CPT 45378; principal; 2025-02-24 07:40)
DX: K22.10 Ulcer of esophagus without bleeding (principal); E10.43 Type 1 diabetes mellitus with diabetic autonomic (poly)neuropathy; I10 Essential (primary) hypertension; K76.0 Fatty (change of) liver, not elsewhere classified; K26.9 Duodenal ulcer, unspecified as acute or chronic, without hemorrhage or perforation; K31.84 Gastroparesis; R11.14 Bilious vomiting; G89.29 Other chronic pain; R63.4 Abnormal weight loss; Z68.29 Body mass index [BMI] 29.0-29.9, adult; Z90.49 Acquired absence of other specified parts of digestive tract; Z79.84 Long term (current) use of oral hypoglycemic drugs; Z79.899 Other long term (current) drug therapy; Z87.891 Personal history of nicotine dependence
CPT/HCPCS: 43239; 45378; 82962; 88305; 88312; 88341; 88342; J2405

== ENCOUNTER 2025-03-30 13:11 | Emergency (ER) | payer MEDICAID, SELFPAY ==
[2025-03-30 13:12] VITALS: BP 208/128; PULSE 87; RESP 18; TEMP 37; O2SAT 95; BMI 29.8
--- NOTE | 2025-03-30 14:03 | CT_ITS ---
PROCEDURE: ABDOMEN/PELVIS W IV CONT ONLY 03/30/2025 REASON FOR EXAM: ABDOMINAL PAIN TECHNIQUE: ABDOMEN/PELVIS W IV CONT ONLY Coronal and Sagittal reconstruction series were provided. CONTRAST: 100 mL of Isovue 370 One or more dose reduction techniques were used (e.g., Automated exposure control, adjustment of the mA and/or kV according to patient size, use of iterative reconstruction technique. RADIATION DOSE SUMMARY: DLP: 1216 mGycm COMPARISON: 11/28/2023 FINDINGS: Limited sections of the lung bases demonstrate no focal pulmonary mass or consolidations. The liver, spleen, pancreas, and both adrenal glands demonstrate no acute findings. Minimal hepatic steatosis. Fatty atrophy of pancreas. The gallbladder is not well seen The stomach is distended with residue. Gastric wall is mildly edematous which may reflect gastritis. The small bowel loops are not dilated. The appendix is normal. No colonic obstruction. Extensive colonic diverticulosis without acute diverticulitis. There is no free air or significant free fluid. The kidneys are unremarkable. Mildly thickened urinary bladder wall which may reflect cystitis vs nondistention; consider correlation with urinalysis. The pelvic structures are intact. There is no solid pelvic mass. No significant lymphadenopathy. The aorta and IVC demonstrate no acute findings. Visualized osseous structures demonstrate no acute abnormality. 2.0 x 1.8 cm sclerotic lesion within the right iliac body best seen on series 2, image 92. Smaller scattered sclerotic lesions are also noted within the acetabulum and bilateral femoral heads. CT/Abdomen/Pelvis W IV Cont ONLY IMPRESSION: Mildly thickened urinary bladder wall which may reflect cystitis vs nondistenti on; consider correlation with urinalysis. Extensive colonic diverticulosis without acute diverticulitis. No bowel obstru ction. 2.0 x 1.8 cm sclerotic lesion within the right iliac body. Smaller scattered s clerotic lesions are also noted within the bilateral acetabulum and bilateral femoral heads. Reading Location: [id number]
[2025-03-30 14:17] LABS: Hematocrit 48.4 % (40-54); Hemoglobin 16.8 g/dL (13.0-16.5); Immature Granulocytes Count 0.050 X10^3/uL (0.0-0.0); Mean Corp Hgb Conc 34.7 g/dL (32-36); Mean Corpuscular Volume 87.4 fL (80-94); Mean Platelet Vol. 11.4 fl (6.2-12.0); NRBC Flagged by Analyzer 0 % (0-5); Platelet Count 399 K/mm3 (150-450); RBC Distribution Width CV 12.7 % (11.6-14.6); RBC Distribution Width SD 40.6 fl (35.1-43.9); Red Blood Count 5.54 M/mm3 (4.6-6.2); White Blood Count 10.5 K/mm3 (4.4-11.0)
[2025-03-30] MEDS: 0.9% Normal Saline (1000mL) 1,000 ML 999 ML IV (14:25)
--- NOTE | 2025-03-30 14:34 | ED.VIS.GI ---
HPI <Dr. Paulino Sheth DO - Last Filed: 03/30/25 16:34> HPI - GI History of Present Illness Chief Complaint: Abd Pain Informant: patient Abdominal Pain/Flank Pain Onset: Days (4) Context: Sudden Onset Timing: Continuous Quality: Sharp Location: - (Suprapubic area) Worsened by: Nothing Relieved by: Nothing Nausea/Vomiting/Emesis GI Symptom: Positive for Nausea and Vomiting Quality: Positive for Nonbilious; Negative for Blood streaks, Coffee ground or Hematemesis Diarrhea/Melena/Hematochezia GI Symptom: Negative for Diarrhea, Melena or Hematochezia Associated Symptoms Associated Symptoms: Negative for Dysuria, Frequency or Hematuria Narrative Narrative: Patient presents with abdominal pain that has been getting worse over the past 4 days. Patient states pain is mainly over the lower abdomen. Patient describes the pain as sharp. Patient states it is constant. Patient states it began rather suddenly. Patient states nothing makes it better nothing makes it worse. Patient admits to some nausea and vomiting. Patient denies any hematemesis or coffee-ground emesis. Patient denies any diarrhea, melena, or hematochezia. Patient denies any urinary complaints. [facility] <Dr. Paulino Sheth DO - Last Filed: 03/30/25 16:34> [facility] Medical History Arthritis Migraine headache Non-smoker History of echocardiogram History of stress test History of CHF (congestive heart failure) Schizophrenia Diabetes Hypertension Home Medications ?Medication ?Instructions ?Recorded ?Last Taken ?Type metformin 500 mg tablet 1,000 tab PO BID 03/11/22 02/23/25 History glimepiride 4 mg tablet 4 mg PO QAM 12/08/24 02/23/25 History lisinopril 40 mg tablet 40 mg PO QDAY 12/08/24 02/23/25 History pioglitazone 15 mg tablet 15 mg PO QDAY 12/08/24 02/23/25 History amlodipine 5 mg tablet 10 mg PO DAILY 12/16/24 02/24/25 History atenolol 50 mg tablet 50 mg PO QDAY 12/16/24 02/24/25 History sucralfate 1 gram tablet (Carafate) 1 g PO Q6H 1 month #120 tabs 02/24/25 Unknown Rx linaclotide 290 mcg capsule 290 mcg PO QAM #90 caps 03/17/25 Unknown Rx (Linzess) pantoprazole 40 mg tablet,delayed 40 mg PO BID #60 tabs 03/17/25 Unknown Rx release amoxicillin 875 mg-potassium 875 mg PO Q12H #14 TABLETS 03/30/25 Unknown Rx clavulanate 125 mg tablet hydrocodone-acetaminophen 5-325mg 1 tab PO Q6H PRN PRN Pain 3 days 03/30/25 Unknown Rx 5mg-325mg #10 TABLETS Allergy/AdvReac Type Severity Reaction Status Date / Time No Known Allergies Allergy Verified 03/30/25 13:12 Family History Brother CAD (coronary artery disease) Surgical History History of laparoscopic cholecystectomy History of cholecystectomy Social History household members: spouse current occupational status: disabled Smoking Status: Former smoker alcohol intake: never substance use type: does not use ROS <Dr. Paulino Sheth, - Last Filed: 03/30/25 16:34> ROS ED Constitutional Constitutional ED: Denies chills or fever(s) Eyes Eyes: Denies blurry vision or change in vision ENT ENT ED: Denies rhinorrhea or sore throat Cardiovascular Cardiovascular: Denies chest pain or palpitations Respiratory/Chest Respiratory/Chest: Denies cough or dyspnea Gastrointestinal Gastrointestinal: Reports abdominal pain, nausea and vomiting; Denies diarrhea or melena Genitourinary Genitourinary ED: Denies dysuria or hematuria Musculoskeletal Musculoskeletal: Denies back pain or neck pain Integumentary Denies abscess or rash Neurologic Neurologic: Denies headache(s) or weakness Allergic/Immunologic Allergic/Immunologic ED: Denies mouth swelling or urticaria EXAM <Dr. Paulino Sheth DO - Last Filed: 03/30/25 16:34> Physical Exam Const Vital Signs: 03/30/25 13:12 03/30/25 15:12 03/30/25 15:34 Temperature 98.6 F Temperature Source Oral Pulse Rate 87 105 H 96 Respiratory Rate 18 18 18 Blood Pressure 208/128 H 207/145 H 225/138 H Blood Pressure Mean 154 165 167 Pulse Ox 95 99 100 Oxygen Delivery Method Room Air Room Air 03/30/25 16:35 Temperature Temperature Source Pulse Rate 77 Respiratory Rate Blood Pressure 142/95 H Blood Pressure Mean 110 Pulse Ox Oxygen Delivery Method Positive well nourished and well developed General Appearance ED: well developed and NAD HEENT Reports moist mucous membranes Neck supple and no JVD Resp normal respiratory effort and clear to auscultation bilaterally Cardio regular rate and regular rhythm GI non-distended Palpation: soft and tender periumbilical and suprapubic; Negative for guarding or rebound tenderness present Neuro CN's II-XII intact bilaterally, moves all extremities and no sensory deficits noted Sensorium / Orientation: alert Motor Exam: strength 5/5 throughout Psych mental status grossly normal <Dr. Brendan Chan MD - Last Filed: 03/30/25 17:34> Physical Exam Const Vital Signs: 03/30/25 13:12 03/30/25 15:12 03/30/25 15:34 Temperature 98.6 F Temperature Source Oral Pulse Rate 87 105 H 96 Respiratory Rate 18 18 18 Blood Pressure 208/128 H 207/145 H 225/138 H Blood Pressure Mean 154 165 167 Pulse Ox 95 99 100 Oxygen Delivery Method Room Air Room Air 03/30/25 16:35 Temperature Temperature Source Pulse Rate 77 Respiratory Rate Blood Pressure 142/95 H Blood Pressure Mean 110 Pulse Ox Oxygen Delivery Method MDM <Dr. Paulino Sheth DO - Last Filed: 03/30/25 16:34> [facility] Narrative Medical decision making narrative: Differential includes urinary tract infection, bowel obstruction, perforation, diverticulitis, appendicitis, ureteral calculus, and dehydration. CT scan of the abdomen and pelvis will be obtained to assess for appendicitis, diverticulitis, bowel obstruction, and perforation. CBC will be obtained to assess for leukocytosis and anemia. Comprehensive metabolic profile will be obtained to assess for hepatic function, renal function, and electrolyte abnormality. Urinalysis will be obtained to assess for urinary tract infection and hematuria. Lipase will be obtained to assess for pancreatitis. Lab Data Attestation: I reviewed the patient's lab results. Lab results narrative: CBC was reviewed and was essentially within normal limits. Comprehensive metabolic profile was reviewed. Glucose was elevated to 91. CO2 was normal. Anion gap was slightly elevated at 20. The remainder is within normal limits. Lipase was reviewed and was normal at 12. Urinalysis was reviewed. There is glucosuria of 1000. Urine ketones were 150. There is no evidence of urinary tract infection or hematuria. Labs: Laboratory Results - last 24 hr 03/30/25 03/30/25 13:40 15:55 WBC 10.5 RBC 5.54 Hgb 16.8 H Hct 48.4 MCV 87.4 MCH 30.3 MCHC 34.7 RDW Std Deviation 40.6 RDW Coeff of Tobias 12.7 Plt Count 399 MPV 11.4 Immature Gran % (Auto) 0.500 Neut % (Auto) 71.8 H Lymph % (Auto) 17.8 L [place] % (Auto) 8.8 Eos % (Auto) 0.4 Baso % (Auto) 0.7 Absolute Neuts (auto) 7.6 Absolute Lymphs (auto) 1.87 Nucleated RBC % 0 Sodium 140 Potassium 3.6 Chloride 96 L Carbon Dioxide 23.7 Anion Gap 20 H BUN 12 Creatinine 0.75 Estim Creat Clear Calc 159.77 Est GFR (MDRD) Non-Af 115 BUN/Creatinine Ratio 15.8 Glucose 291 H Calcium 9.8 Total Bilirubin 0.73 AST 21 ALT 17 Alkaline Phosphatase 69 Total Protein 7.8 Albumin 4.2 Globulin 3.6 Albumin/Globulin Ratio 1.2 Lipase 12 L Urine Color Straw Urine Clarity Clear Urine pH 6.0 Ur Specific [place] 1.020 Urine Protein 30 H Urine Glucose (UA) 1000 H Urine Ketones 150 A* Urine Occult Blood Negative Urine Nitrite Negative Urine Bilirubin Negative Urine Urobilinogen Normal Ur Leukocyte Esterase Negative Urine RBC 0-5 SEEN Urine WBC 0-5 SEEN Ur Squamous Epith Cells 0-5 SEEN Urine Bacteria 0 SEEN Hyaline Casts 0-5 SEEN Urine Mucus 1+ Radiography Diagnostic Testing: Clinical Impression(s) from Imaging Studies Abdomen/Pelvis CT 03/30/25 14:03 IMPRESSION: Mildly thickened urinary bladder wall which may reflect cystitis vs nondistention; consider correlation with urinalysis. Extensive colonic diverticulosis without acute diverticulitis. No bowel obstruction. 2.0 x 1.8 cm sclerotic lesion within the right iliac body. Smaller scattered sclerotic lesions are also noted within the bilateral acetabulum and bilateral femoral heads. Reading Location: [id number] Treatment and Re-Evaluation :: Patient was given IV fluids, morphine, and Zofran. Patient was given a dose of labetalol. Patient's blood pressure remained elevated. Patient was given a dose of hydralazine. Care of the patient was turned over to the oncoming physician pending CT results. <Dr. Brendan Chan MD - Last Filed: 03/30/25 17:34> [facility] Lab Data Labs: Laboratory Results - last 24 hr 03/30/25 03/30/25 13:40 15:55 WBC 10.5 RBC 5.54 Hgb 16.8 H Hct 48.4 MCV 87.4 MCH 30.3 MCHC 34.7 RDW Std Deviation 40.6 RDW Coeff of Tobias 12.7 Plt Count 399 MPV 11.4 Immature Gran % (Auto) 0.500 Neut % (Auto) 71.8 H Lymph % (Auto) 17.8 L [place] % (Auto) 8.8 Eos % (Auto) 0.4 Baso % (Auto) 0.7 Absolute Neuts (auto) 7.6 Absolute Lymphs (auto) 1.87 Nucleated RBC % 0 Sodium 140 Potassium 3.6 Chloride 96 L Carbon Dioxide 23.7 Anion Gap 20 H BUN 12 Creatinine 0.75 Estim Creat Clear Calc 159.77 Est GFR (MDRD) Non-Af 115 BUN/Creatinine Ratio 15.8 Glucose 291 H Calcium 9.8 Total Bilirubin 0.73 AST 21 ALT 17 Alkaline Phosphatase 69 Total Protein 7.8 Albumin 4.2 Globulin 3.6 Albumin/Globulin Ratio 1.2 Lipase 12 L Urine Color Straw Urine Clarity Clear Urine pH 6.0 Ur Specific [place] 1.020 Urine Protein 30 H Urine Glucose (UA) 1000 H Urine Ketones 150 A* Urine Occult Blood Negative Urine Nitrite Negative Urine Bilirubin Negative Urine Urobilinogen Normal Ur Leukocyte Esterase Negative Urine RBC 0-5 SEEN Urine WBC 0-5 SEEN Ur Squamous Epith Cells 0-5 SEEN Urine Bacteria 0 SEEN Hyaline Casts 0-5 SEEN Urine Mucus 1+ Radiography Diagnostic Testing: Clinical Impression(s) from Imaging Studies Abdomen/Pelvis CT 03/30/25 14:03 IMPRESSION: Mildly thickened urinary bladder wall which may reflect cystitis vs nondistention; consider correlation with urinalysis. Extensive colonic diverticulosis without acute diverticulitis. No bowel obstruction. 2.0 x 1.8 cm sclerotic lesion within the right iliac body. Smaller scattered sclerotic lesions are also noted within the bilateral acetabulum and bilateral femoral heads. Reading Location: [facility] The body as well as the impression of the CT of the abdomen pelvis was reviewed by me. Will reevaluate patient. If he has no peritoneal findings since he is not febrile and has a normal white count he can be treated as an outpatient. Will have him follow-up with his primary care doctor regarding the sclerotic lesions within the right iliac body and scattered sclerotic lesions noted in the right and left Daptacel tabular and femoral heads. Treatment and Re-Evaluation Comments:: Patient was reexamined at 1725. His abdomen is benign. In light of this to be discharged home with a prescription for Augmentin and pain medicine. Because of the sclerotic read lesions and him complain of night sweats and weight loss will obtain urgent oncology follow-up Discharge Plan Triage Chief Complaint: Abd Pain ED Provider: Paulino Sheth Dx/Rx/DC Orders Clinical Impression: Acute diverticulitis, Abdominal pain, Diabetes, Hypertension, Unintentional weight loss of less than 10% body weight within 6 months, Night sweats, Lesion of pelvic bone, Lesion of left femur, Lesion of right femur Instructions: ED Diverticulitis Prescriptions: New hydrocodone-acetaminophen 5-325 mg tablet 1 tab PO Q6H PRN PRN (Reason: Pain) 3 Days Qty: 10 0RF amoxicillin-pot clavulanate 875-125 mg tablet 875 mg PO Q12H Qty: 14 0RF No Action glimepiride 4 mg tablet 4 mg PO QAM pioglitazone 15 mg tablet 15 mg PO QDAY lisinopril 40 mg tablet 40 mg PO QDAY atenolol 50 mg tablet 50 mg PO QDAY Linzess 290 mcg capsule 290 mcg PO QAM Qty: 90 1RF pantoprazole 40 mg tablet,delayed release (DR/EC) 40 mg PO BID Qty: 60 3RF metformin 500 mg tablet 1,000 tab PO BID Patient Comments: TAKE 2 TABLETS BY MOUTH TWICE DAILY WITH MEALS amlodipine 5 mg tablet 10 mg PO DAILY Patient Comments: TAKE 1 TABLET BY MOUTH ONCE DAILY sucralfate [Carafate] 1 gram tablet 1 g PO Q6H 30 Days Qty: 120 2RF Other Ambulatory Orders: Fast Pass: Oncology Referral [facility] (Routine) Facility: [facility] - Location: [facility] Ordered By: Dr. Brendan Chan Primary Care Provider: Alice Otto NP Referrals: Alice Otto NP, [employer] [facility] [Primary Care Provider] - 3-5 Days if not improving Print Language: Georgian Disposition Disposition: Home, Self Care
[2025-03-30 15:12] VITALS: BP 207/145; PULSE 105; RESP 18; O2SAT 99
[2025-03-30 15:34] VITALS: BP 225/138; PULSE 96; RESP 18; O2SAT 100
[2025-03-30 15:48] LABS: AST(SGOT) 21 U/L (<=37); Alanine Aminotransfer ALT/SGPT 17 U/L (<=46); Albumin, Serum 4.2 g/dL (3.5-5.0); Alkaline Phosphatase 69 U/L (40-129); Anion Gap 20 (5-15); BUN 12 mg/dL (4-19); BUN/Creat Ratio 15.8 RATIO (10-20); Calcium,Total 9.8 mg/dL (7.6-11.0); Carbon Dioxide 23.7 mmol/L (21.0-32.0); Chloride 96 mmol/L (98-108); Estimated Creatinine Clearance 159.77 ml/min (50-250); Globulin 3.6 g/dL (2.2-4.2); Glucose 291 mg/dL (70-99); Lipase 12 U/L (13-75); Potassium 3.6 mmol/L (3.3-5.1)
[2025-03-30 16:25] LABS: Color, Urine Straw (Yellow); Glucose, Dipstick 1000 mg/dl (Normal); Leukocyte Esterase-Dipstick Negative /ul (Negative); Nitrite-Dipstick Negative (Negative); Occult Blood-Urine Negative /ul (Negative); Protein-Dipstick 30 mg/dl (Negative); Specific Gravity, Urine 1.020 (1.002-1.030); Urine Bilirubin Dipstick Negative (Negative)
[2025-03-30 16:30] LABS: Ketone-Dipstick 150 mg/dl (Negative)
[2025-03-30 16:35] VITALS: BP 142/95; PULSE 77
[2025-03-30 17:09] LABS: Mucous, Urine 1+ /hpf (<or=2+); Red Blood Cells-Urine 0-5 SEEN /hpf (0-5); Squamous Epithelial Cells - UA 0-5 SEEN /hpf (0-5)
[2025-03-30 17:41] VITALS: BP 142/95; PULSE 77; RESP 18; TEMP 37; O2SAT 100
== END 2025-03-30 17:42 | disposition home or self-care (01) ==
PROVIDERS: Emergency Provider Emergency Medicine; PCP Internal Medicine; Referring Provider Emergency Medicine; Visit Provider Emergency Medicine
DX: K57.30 Diverticulosis of large intestine without perforation or abscess without bleeding (principal); E11.9 Type 2 diabetes mellitus without complications; I10 Essential (primary) hypertension; M89.8X8 Other specified disorders of bone, other site; R63.4 Abnormal weight loss; R61 Generalized hyperhidrosis; Z79.84 Long term (current) use of oral hypoglycemic drugs; Z79.899 Other long term (current) drug therapy; Z87.891 Personal history of nicotine dependence
CPT/HCPCS: 74177; 80053; 81001; 83690; 85025; 96361; 96374; 96375; 99283; Q9967; A4216; J2405

== ENCOUNTER → 2025-04-13 | Outpatient (CLI) | payer MEDICAID, SELFPAY ==
--- NOTE | 2025-04-13 09:59 | RAD_ITS ---
PROCEDURE: CHEST PA AND LATERAL 04/13/2025 REASON FOR EXAM: ABNORMAL CT ABD TECHNIQUE: CHEST PA AND LATERAL COMPARISON: 01/31/2021 FINDINGS: No focal consolidation. No pleural effusion or pneumothorax. Cardiac silhouette is within normal limits. No acute fractures. RAD/Chest PA and Lateral IMPRESSION: No focal consolidations. Reading Location: [id number]
== END | disposition home or self-care (01) ==
LOC: RAD 09:56
PROVIDERS: Referring Provider Nurse Practitioner Family; Visit Provider Nurse Practitioner Family
DX: R93.5 Abnormal findings on diagnostic imaging of other abdominal regions, including retroperitoneum (principal); Q78.2 Osteopetrosis
CPT/HCPCS: 71046

== ENCOUNTER 2025-04-25 13:16 | Emergency (ER) | payer MEDICAID, SELFPAY ==
[2025-04-25 13:17] VITALS: BP 138/101; PULSE 92; RESP 14; TEMP 36.9; O2SAT 97; BMI 28.3
[2025-04-25 13:46] LABS: Hematocrit 45.8 % (40-54); Hemoglobin 16.2 g/dL (13.0-16.5); Immature Granulocytes Count 0.020 X10^3/uL (0.0-0.0); Mean Corp Hgb Conc 35.4 g/dL (32-36); Mean Corpuscular Volume 86.3 fL (80-94); Mean Platelet Vol. 12.1 fl (6.2-12.0); NRBC Flagged by Analyzer 0 % (0-5); Platelet Count 295 K/mm3 (150-450); RBC Distribution Width CV 13.1 % (11.6-14.6); RBC Distribution Width SD 41.0 fl (35.1-43.9); Red Blood Count 5.31 M/mm3 (4.6-6.2); White Blood Count 9.3 K/mm3 (4.4-11.0)
--- NOTE | 2025-04-25 15:08 | EX.ED.DYSGE1 ---
HPI History of Present Illness Chief Complaint: Abd Pain Informant: patient Narrative Narrative: 44-year-old male is a relatively poor informant presenting with vomiting since last night maybe 4 episodes nonbilious nonbloody. No fevers or chills. No new abdominal pain, but he has been having lower abdominal pain at the same time as low back pain for 10 years he states. He states he was seen here for similar symptoms couple months ago and had a CT scan that showed abnormal bone in his pelvis, he was referred to and saw Dr. Colvin with oncology, and as result had some other tests ordered including a bone scan which was scheduled for today but he states his pain was too bad to go, although he presents here to the ER saying that he would like something for pain, which he admits is chronic, because he has been taking nothing and does not have a family doctor although he is scheduled to see one. [facility] Medical History Arthritis Migraine headache Non-smoker History of echocardiogram History of stress test History of CHF (congestive heart failure) Schizophrenia Diabetes Hypertension Home Medications ?Medication ?Instructions ?Recorded ?Last Taken ?Type metformin 500 mg tablet 1,000 tab PO BID 03/11/22 02/23/25 History glimepiride 4 mg tablet 4 mg PO QAM 12/08/24 02/23/25 History lisinopril 40 mg tablet 40 mg PO QDAY 12/08/24 02/23/25 History pioglitazone 15 mg tablet 15 mg PO QDAY 12/08/24 02/23/25 History amlodipine 5 mg tablet 10 mg PO DAILY 12/16/24 02/24/25 History atenolol 50 mg tablet 50 mg PO QDAY 12/16/24 02/24/25 History sucralfate 1 gram tablet (Carafate) 1 g PO Q6H 1 month #120 tabs 02/24/25 Unknown Rx pantoprazole 40 mg tablet,delayed 40 mg PO BID #60 tabs 03/17/25 Unknown Rx release amoxicillin 875 mg-potassium 875 mg PO Q12H #14 TABLETS 03/30/25 Unknown Rx clavulanate 125 mg tablet hydrocodone-acetaminophen 5-325mg 1 tab PO Q6H PRN PRN Pain 3 days 03/30/25 Unknown Rx 5mg-325mg #10 TABLETS lubiprostone 24 mcg capsule 24 mcg PO BID #60 caps 04/19/25 Unknown Rx (Amitiza) meloxicam 15 mg tablet 15 mg PO DAILY PRN pain #20 tabs 04/25/25 Unknown Rx ondansetron 8 mg disintegrating 8 mg PO Q8H PRN nausea and 04/25/25 Unknown Rx tablet vomiting #12 tabs Allergy/AdvReac Type Severity Reaction Status Date / Time No Known Allergies Allergy Verified 04/25/25 13:19 Family History Brother CAD (coronary artery disease) Surgical History History of laparoscopic cholecystectomy History of cholecystectomy Social History household members: spouse current occupational status: disabled Smoking Status: Former smoker alcohol intake: never substance use type: does not use ROS ROS ED Constitutional Constitutional ED: Denies chills or fever(s) Eyes Eyes: Denies change in vision or diplopia ENT ENT ED: Denies rhinorrhea or sore throat Cardiovascular Cardiovascular: Denies chest pain or palpitations Respiratory/Chest Respiratory/Chest: Denies cough or dyspnea Gastrointestinal Gastrointestinal: Reports abdominal pain, nausea and vomiting; Denies diarrhea Genitourinary Genitourinary ED: Denies dysuria or hematuria Musculoskeletal Musculoskeletal: Reports back pain; Denies neck pain Integumentary Denies abscess or rash Neurologic Neurologic: Denies headache(s), paresthesias or weakness EXAM Physical Exam Const Vital Signs: 04/25/25 13:17 04/25/25 15:16 04/25/25 16:54 Temperature 98.5 F 98.5 F Temperature Source Oral Pulse Rate 92 83 85 Respiratory Rate 14 18 18 Blood Pressure 138/101 H 158/99 H 153/104 H Blood Pressure Mean 113 118 120 Pulse Ox 97 99 98 Oxygen Delivery Method Room Air Positive well nourished and well developed General Appearance ED: well developed and NAD HEENT Reports moist mucous membranes normocephalic and atraumatic Eyes PERRL and EOMs intact bilaterally Neck full ROM and supple Resp normal respiratory effort and clear to auscultation bilaterally Cardio regular rate, regular rhythm and no murmurs GI non-tender and non-distended Auscultation: normoactive bowel sounds Palpation: soft Back/Spine no CVA tenderness Back/Spine Narrative: Able to sit up without difficulty, states his low back hurts a little when he does so. He points at the lower lumbar spine and sacrum in the midline. It is normal on inspection. No significant bony tenderness here. General Back: other FROM Extremity normal to inspection General Extremety ED: Negative for edema, pulses abnormal or tenderness General Extremity: Negative for edema or pulses abnormal Neuro oriented x3, CN's II-XII intact bilaterally and no sensory deficits noted Sensorium / Orientation: awake and alert Motor Exam: strength 5/5 throughout Psych Psych Narrative: Flat affect Skin no rashes or lesions noted and no wounds MDM MDM MDM Narrative Medical decision making narrative: I reviewed briefly some old records on the patient. He had a CT scan about a month ago that showed the sclerotic lesions in his posterior pelvis as well as the area of the acetabulum bilaterally, and I also saw the note from Dr. Muniz and his plan to get other testing and have the patient follow-up. He also has a history of recurrent episodes of vomiting and had a provisional diagnosis of gastroparesis but he had a gastric emptying study this year that was unremarkable. Nurses have labs running, I reviewed them and they are unremarkable except mildly low potassium including urinalysis negative for infection, and his abdominal exam is very benign and he is well-appearing with normal vital signs. I do not think he needs any other advanced imaging at this time, I have given him some Reglan and IV fluids and he is doing well, he does not appear to be in severe pain so I think reasonable to prescribe him some meloxicam that he can use until he follows up. History & Record Review Additional record(s) reviewed:: Prior labs Lab Data Attestation: I reviewed the patient's lab results. Labs: Laboratory Results - last 24 hr 04/25/25 04/25/25 04/25/25 13:26 14:50 15:22 WBC 9.3 RBC 5.31 Hgb 16.2 Hct 45.8 MCV 86.3 MCH 30.5 MCHC 35.4 RDW Std Deviation 41.0 RDW Coeff of Tobias 13.1 Plt Count 295 MPV 12.1 H Immature Gran % (Auto) 0.200 Neut % (Auto) 66.8 Lymph % (Auto) 21.6 [place] % (Auto) 9.5 Eos % (Auto) 1.3 Baso % (Auto) 0.6 Absolute Neuts (auto) 6.2 Absolute Lymphs (auto) 2.01 Nucleated RBC % 0 Sodium Cancelled 138 Potassium Cancelled 3.1 L Chloride Cancelled 98 Carbon Dioxide Cancelled 22.0 Anion Gap Cancelled 19 H BUN Cancelled 14 Creatinine Cancelled 0.69 L Estim Creat Clear Calc Cancelled 169.73 Est GFR (MDRD) Non-Af Cancelled 118 BUN/Creatinine Ratio Cancelled 19.6 Glucose Cancelled 197 H Calcium Cancelled 9.4 Total Bilirubin Cancelled 0.89 AST Cancelled 20 ALT Cancelled 18 Alkaline Phosphatase Cancelled 55 Total Protein Cancelled 7.3 Albumin Cancelled 4.3 Globulin Cancelled 3.0 Albumin/Globulin Ratio Cancelled 1.4 Lipase Cancelled 11 L Urine Color Yellow Urine Clarity Clear Urine pH 6.0 Ur Specific [place] 1.020 Urine Protein 30 H Urine Glucose (UA) 250 H Urine Ketones 150 A* Urine Occult Blood Negative Urine Nitrite Negative Urine Bilirubin Negative Urine Urobilinogen 1 H Ur Leukocyte Esterase Negative Urine RBC 0-5 SEEN Urine WBC 0-5 SEEN Ur Squamous Epith Cells 0 SEEN Urine Bacteria 1+ Hyaline Casts 0-5 SEEN Urine Mucus 1+ Discharge Plan Triage Chief Complaint: Abd Pain Other Complaint: Back ED Provider: Joey Encarnacion Dx/Rx/DC Orders Clinical Impression: Chronic low back pain, Bony sclerosis, Acute nausea with nonbilious vomiting, Abdominal pain, lower Instructions: ED Back Pain (Acute or Chronic) Prescriptions: New meloxicam 15 mg tablet 15 mg PO DAILY PRN (Reason: pain) Qty: 20 0RF ondansetron 8 mg tablet,disintegrating 8 mg PO Q8H PRN (Reason: nausea and vomiting) Qty: 12 0RF No Action glimepiride 4 mg tablet 4 mg PO QAM pioglitazone 15 mg tablet 15 mg PO QDAY lisinopril 40 mg tablet 40 mg PO QDAY atenolol 50 mg tablet 50 mg PO QDAY pantoprazole 40 mg tablet,delayed release (DR/EC) 40 mg PO BID Qty: 60 3RF lubiprostone [Amitiza] 24 mcg capsule 24 mcg PO BID Qty: 60 2RF Rx Instructions: take twice daily with meals metformin 500 mg tablet 1,000 tab PO BID Patient Comments: TAKE 2 TABLETS BY MOUTH TWICE DAILY WITH MEALS amlodipine 5 mg tablet 10 mg PO DAILY Patient Comments: TAKE 1 TABLET BY MOUTH ONCE DAILY hydrocodone-acetaminophen 5-325 mg tablet 1 tab PO Q6H PRN PRN (Reason: Pain) 3 Days Qty: 10 0RF amoxicillin-pot clavulanate 875-125 mg tablet 875 mg PO Q12H Qty: 14 0RF sucralfate [Carafate] 1 gram tablet 1 g PO Q6H 30 Days Qty: 120 2RF Primary Care Provider: Care Physician,No Primary Referrals: Yoel Colvin MD [Med Staff - Active Staff] - (or your primary as scheduled; call to reschedule your bone scan) Print Language: Latvian Disposition Disposition: Home, Self Care Discharge Date/Time: 04/25/25 17:03
[2025-04-25 15:16] VITALS: BP 158/99; PULSE 83; RESP 18; O2SAT 99
[2025-04-25] MEDS: 0.9% Normal Saline (500mL Bag) 500 ML 999 ML IV (15:19)
[2025-04-25 15:29] LABS: Squamous Epithelial Cells - UA 0 SEEN /hpf (0-5)
[2025-04-25 15:36] LABS: Color, Urine Yellow (Yellow); Glucose, Dipstick 250 mg/dl (Normal); Leukocyte Esterase-Dipstick Negative /ul (Negative); Nitrite-Dipstick Negative (Negative); Occult Blood-Urine Negative /ul (Negative); Protein-Dipstick 30 mg/dl (Negative); Specific Gravity, Urine 1.020 (1.002-1.030); Urine Bilirubin Dipstick Negative (Negative)
[2025-04-25 15:47] LABS: Ketone-Dipstick 150 mg/dl (Negative)
[2025-04-25 16:01] LABS: Mucous, Urine 1+ /hpf (<or=2+); Red Blood Cells-Urine 0-5 SEEN /hpf (0-5)
[2025-04-25 16:26] LABS: AST(SGOT) 20 U/L (<=37); Alanine Aminotransfer ALT/SGPT 18 U/L (<=46); Albumin, Serum 4.3 g/dL (3.5-5.0); Alkaline Phosphatase 55 U/L (40-129); Anion Gap 19 (5-15); BUN 14 mg/dL (4-19); BUN/Creat Ratio 19.6 RATIO (10-20); Calcium,Total 9.4 mg/dL (7.6-11.0); Carbon Dioxide 22.0 mmol/L (21.0-32.0); Chloride 98 mmol/L (98-108); Estimated Creatinine Clearance 169.73 ml/min (50-250); Globulin 3.0 g/dL (2.2-4.2); Glucose 197 mg/dL (70-99); Lipase 11 U/L (13-75); Potassium 3.1 mmol/L (3.3-5.1)
[2025-04-25 16:54] VITALS: BP 153/104; PULSE 85; RESP 18; TEMP 36.9; O2SAT 98
== END 2025-04-25 17:03 | disposition home or self-care (01) ==
PROVIDERS: Emergency Provider Emergency Medicine; Visit Provider Emergency Medicine
DX: M89.8X8 Other specified disorders of bone, other site (principal); E11.9 Type 2 diabetes mellitus without complications; G89.29 Other chronic pain; R10.30 Lower abdominal pain, unspecified; R11.2 Nausea with vomiting, unspecified; I10 Essential (primary) hypertension; Z79.84 Long term (current) use of oral hypoglycemic drugs; Z79.899 Other long term (current) drug therapy; Z87.891 Personal history of nicotine dependence
CPT/HCPCS: 80053; 81001; 83690; 85025; 99284; A4216

== ENCOUNTER 2025-04-29 08:27 | Outpatient (CLI) | payer MEDICAID, SELFPAY ==
--- NOTE | 2025-04-29 08:31 | NM_ITS ---
PROCEDURE: BONE SCAN WHOLE BODY 04/29/2025 REASON FOR EXAM: BONE LESION TECHNIQUE: Delayed anterior and posterior whole-body images were obtained after radiopharmaceutical administration . RADIOPHARMACEUTICAL: 27.2 mCi Technetium-99m MDP IV COMPARISON: Abdomen and pelvis CT 03/30/2025 FINDINGS: Periodontal disease is seen. No focus of abnormal uptake is seen, including the area of concern of the medial right iliac bone on the comparison CT. NM/Bone Scan Whole Body IMPRESSION: No focus of abnormal uptake is seen. No evidence of osseous metastatic disease or primary osseous malignancy. Reading Location: [place] [id number]
[2025-04-29 09:46] LABS: Hematocrit 47.9 % (40-54); Hemoglobin 16.8 g/dL (13.0-16.5); Immature Granulocytes Count 0.030 X10^3/uL (0.0-0.0); Mean Corp Hgb Conc 35.1 g/dL (32-36); Mean Corpuscular Volume 86.0 fL (80-94); Mean Platelet Vol. 11.7 fl (6.2-12.0); NRBC Flagged by Analyzer 0 % (0-5); Platelet Count 373 K/mm3 (150-450); RBC Distribution Width CV 13.1 % (11.6-14.6); RBC Distribution Width SD 40.7 fl (35.1-43.9); Red Blood Count 5.57 M/mm3 (4.6-6.2); White Blood Count 10.0 K/mm3 (4.4-11.0)
[2025-04-29 09:56] LABS: Prothrombin Time (Protime)PT. 14.5 SECONDS (11.7-14.9)
[2025-04-29 11:53] LABS: AST(SGOT) 19 U/L (<=37); Alanine Aminotransfer ALT/SGPT 17 U/L (<=46); Albumin, Serum 4.6 g/dL (3.5-5.0); Alkaline Phosphatase 58 U/L (40-129); Anion Gap 21 (5-15); BUN 12 mg/dL (4-19); BUN/Creat Ratio 15.7 RATIO (10-20); Calcium,Total 10.3 mg/dL (7.6-11.0); Carbon Dioxide 23.5 mmol/L (21.0-32.0); Chloride 93 mmol/L (98-108); Ferritin 822 ng/mL (37-417); Globulin 3.3 g/dL (2.2-4.2); Glucose 176 mg/dL (70-99); Iron Binding Capacity,Total 284 ug/dL (250-450); Potassium 3.2 mmol/L (3.3-5.1); Vitamin D,25 Hydroxy 36.3 ng/mL (30-100)
[2025-04-29 12:07] LABS: CRP < 3.00 mg/L (0.0-3.0); Cholesterol 166 mg/dL (<=200); Iron 108 ug/dL (65-175); Iron Binding Capacity,Unsat 176 ug/dL (228-428); Low Density Lipoprotein Calc. 95 mg/dL; Triglycerides 61 mg/dL; Very Low Density Lipoprotein 12 mg/dL (5-40); cholesterol:hdl ratio screen 2.80
[2025-05-02 13:08] LABS: ANTINUCLEAR ANTIBODIES DIRECT Negative (Negative)
[2025-05-03 16:09] LABS: Albumin 3.8 g/dL (2.9-4.4); Anti-Smooth Muscle ABS 6 Units (0-19); Gamma Globulin 1.3 g/dL (0.4-1.8); Immunoglobulin A 327 mg/dL (90-386); Immunoglobulin G 1250 mg/dL (603-1613); Immunoglobulin M 58 mg/dL (20-172); PROEL- TOTAL PROTEIN 7.3 g/dL (6.0-8.5)
== END 2025-04-29 23:59 | disposition home or self-care (01) ==
LOC: NM 08:28
PROVIDERS: Internal Medicine; Referring Provider Internal Medicine Medical Oncology; Visit Provider Internal Medicine Medical Oncology
DX: M89.9 Disorder of bone, unspecified (principal); Q78.2 Osteopetrosis; K76.0 Fatty (change of) liver, not elsewhere classified; K31.84 Gastroparesis; I10 Essential (primary) hypertension; R61 Generalized hyperhidrosis; R63.4 Abnormal weight loss; R11.14 Bilious vomiting
CPT/HCPCS: 86225; 36415; 78306; 80053; 80061; 82306; 82728; 82784; 83036; 83516; 83540; 83550; 84165; 84443; 85025; 85610; 86038; 86140; 86334; 86706; A9503

== ENCOUNTER 2025-06-08 07:43 | Day surgery (SDC) | payer MEDICAID, SELFPAY ==
--- NOTE | 2025-06-02 20:21 | PAT.ANESEVAL ---
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 When Was Last Pacemaker Check QUESTION #4 FULL TEXT: You/Your Family Experience fever (hyperthermia) with Anesthesia Last Oral Intake Last Oral intake: Last Oral Intake NPO since Meds taken in AM with sips of water? Meds patient instructed to take am of surgery PONV PONV - slitter cut off operator: PONV - slitter cut off operator Female No 06/02/25 15:15 HX of Motion Sickness No 06/02/25 15:15 HX of N/V After Surgery No 06/02/25 15:15 Non-Smoker Yes 06/02/25 15:15 Duration of Surgery greater No 06/02/25 15:15 than 60 minutes Number of Risk Factors 1 06/02/25 15:15 PONV Score Low Risk 06/02/25 15:15 Height & Weight Height & Weight: Anesthesia: Height & Weight Height 6 ft 1 in 04/05/25 09:05 Respiratory Assessment Respiratory Assessment - slitter cut off operator: Respiratory Tract Infection Hx - slitter cut off operator Hx Respiratory Tract Infection No 06/02/25 15:15 STOP Sleep Apnea STOP Sleep Apnea - slitter cut off operator: STOP Sleep Apnea - slitter cut off operator Hx Hypertension Yes: PER PT, CONTROLLED ON 06/02/25 15:15 MEDS Hx Sleep Apnea Yes 06/02/25 15:15 CPAP No 06/02/25 15:15 BIPAP No 06/02/25 15:15 Do you snore loudly (louder than talking or can be heard Do you often feel tired/ fatigued/ sleepy during daytime? Has anyone observed you stop breathing during sleep? STOP Results Positive 06/02/25 15:15 QUESTION #5 FULL TEXT : Do you snore loudly (louder than talking or can be heard through closed doors)? 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 Specify any problems Hx of Preganancy in last 3 N/A 06/02/25 15:15 Months Nurse Filling Out Transfusion HAILEE 06/02/25 15:15 & Questions: Date: 06/02/25 06/02/25 15:15 Time: 15:17 06/02/25 15:15 Patient unable to answer at this time (ie. confused, unrespo /Reproduction History /Reproductive History - slitter cut off operator: /Reproductive Hx- slitter cut off operator Hx Now No 06/02/25 15:15 Gestational Age (in weeks): EDC: Hx Hx Para Hx Section SAB No 06/02/25 15:15 PFSH Medical History (Updated 06/02/25 @ 15:25 by Dulce Lyman) Bipolar disorder Excessive bleeding History of diverticulitis History of IBS Gastric reflux Former smoker Arthritis Migraine headache Non-smoker History of echocardiogram History of stress test History of CHF (congestive heart failure) Schizophrenia Diabetes Hypertension Home Medications ?Medication ?Instructions ?Recorded ?Last Taken ?Type metformin 500 mg tablet 1,000 tab PO BID 03/11/22 02/23/25 History glimepiride 4 mg tablet 4 mg PO QAM 12/08/24 02/23/25 History lisinopril 40 mg tablet 40 mg PO QDAY 12/08/24 02/23/25 History pioglitazone 15 mg tablet 15 mg PO QDAY 12/08/24 02/23/25 History amlodipine 5 mg tablet 10 mg PO DAILY 12/16/24 02/24/25 History atenolol 50 mg tablet 50 mg PO QDAY 12/16/24 02/24/25 History pantoprazole 40 mg tablet,delayed 40 mg PO BID #60 tabs 03/17/25 Unknown Rx release lubiprostone 24 mcg capsule 24 mcg PO BID #60 caps 04/19/25 Unknown Rx (Amitiza) meloxicam 15 mg tablet 15 mg PO DAILY PRN pain #20 tabs 04/25/25 Unknown Rx sucralfate 1 gram tablet (Carafate) 1 g PO Q6H PRN acid reflux 06/02/25 Unknown History Allergy/AdvReac Type Severity Reaction Status Date / Time No Known Allergies Allergy Verified 06/02/25 15:09 Family History Brother CAD (coronary artery disease) Surgical History (Updated 06/02/25 @ 15:15 by Dulce Lyman) History of esophagogastroduodenoscopy (EGD) History of laparoscopic cholecystectomy History of cholecystectomy Social History household members: spouse current occupational status: disabled Smoking Status: Former smoker alcohol intake: never substance use type: does not use Audit: Pertinent Findings Pertinent Findings EKG Perinent findings: 01/31/2021. Normal sinus rhythm. Stress test pertinent findings: 02/01/2021. EF of 65%. Negative for reversible myocardial ischemia. Echo (EF%) pertinent findings: 01/31/2021. EF is 65%. No aortic stenosis noted. Additional pertinent findings: Last potassium on 04/29/2025 is 3.2. Patient has been low to low normal as far back as 2017. Recommendation Anesthesia Recommendation Anesthesia recommendation: OPTIMIZED for anesthesia (Please alert procedurist to elevated hemoglobin A1c of 11.2 on 04/29/2025. Please be advised that elevated hemoglobin A1c's indicate poor wound healing and increased risk of infection.)
[2025-06-08] VITALS (8 sets, daily range): BP systolic 119–170; BP diastolic 82–120; PULSE 79–98; RESP 16–17; TEMP 36.4–36.6; O2SAT 97–100; BMI 29.6
--- NOTE | 2025-06-08 08:03 | PRE.ANES_ITS ---
ASA Classification* ASA Classification ASA Classification: 3 Assessment & Plan Anesthesia* Anesthesia Assessment Anesthesia Assessment: Discussed sedation and/or anesthesia options, risks, benefits, and alternatives with patient/parents/legal guardian/POA. Questions invited. The patient/parents/legal guardian/POA seems to understand and agrees to proceed with anesthesia plan. Reviewed the physical assessment, medical history, allergy history and patient home medications list prior to surgery/procedure/anesthetic and documented any changes. Performed airway and anesthesia risk assessments. Anesthesia Type Anesthesia Type: MAC History Source History Obtained from:: Patient and Chart Anesthesia Focused Assessment* Oxygen Delivery Method: Room Air Airway Assessment Mouth opens: >3 cm Mallampati Score: II Teeth Condition: Chipped/Broken Neck Range of motion (ROM): Full ROM Labs Anesthesia Preop lab: CBC WBC, (4.4-11.0) 10.0 K/mm3 04/29/25, 09:09 RBC, (4.6-6.2) 5.57 M/mm3 04/29/25, 09:09 Hgb, (13.0-16.5) 16.8 g/dL H 04/29/25, 09:09 Hct, (40-54) 47.9 % 04/29/25, 09:09 Plt Count, (150-450) 373 K/mm3 04/29/25, 09:09 CHEMISTRY Potassium, (3.3-5.1) 3.2 mmol/L L 04/29/25, 09:09 Sodium, (133-145) 137 mmol/L 04/29/25, 09:09 Magnesium, (1.6-2.6) 2.1 mg/dL 02/01/21, 06:15 BUN, (4-19) 12 mg/dL 04/29/25, 09:09 Creatinine, (0.70-1.20) 0.77 mg/dL 04/29/25, 09:09 Glucose, (70-99) 176 mg/dL H 04/29/25, 09:09 POC Glucose, (74-106) 266 mg/dL H 02/24/25, 06:51 TSH, (0.300-4.200) 0.818 uIU/mL 04/29/25, 09:09 COAG PT, (11.7-14.9) 14.5 SECONDS 04/29/25, 09:09 Pre-Assessment Diagnosis/Proposed Procedure Planned Operative Procedure(s): COLONOSCOPY, EGD Anesthesia History 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 When Was Last Pacemaker Check QUESTION #4 FULL TEXT: You/Your Family Experience fever (hyperthermia) with Anesthesia Last Oral Intake Last Oral intake: Last Oral Intake NPO since Meds taken in AM with sips of water? Meds patient instructed to take am of surgery PONV PONV - environmental protection economist: PONV - environmental protection economist Female No 06/02/25 15:15 HX of Motion Sickness No 06/02/25 15:15 HX of N/V After Surgery No 06/02/25 15:15 Non-Smoker Yes 06/02/25 15:15 Duration of Surgery greater No 06/02/25 15:15 than 60 minutes Number of Risk Factors 1 06/02/25 15:15 PONV Score Low Risk 06/02/25 15:15 Height & Weight Height & Weight: Anesthesia: Height & Weight Height 6 ft 1 in 06/07/25 10:22 Respiratory Assessment Respiratory Assessment - environmental protection economist: Respiratory Tract Infection Hx - environmental protection economist Hx Respiratory Tract Infection No 06/02/25 15:15 STOP Sleep Apnea STOP Sleep Apnea - environmental protection economist: STOP Sleep Apnea - environmental protection economist Hx Hypertension Yes: PER PT, CONTROLLED ON 06/02/25 15:15 MEDS Hx Sleep Apnea Yes 06/02/25 15:15 CPAP No 06/02/25 15:15 BIPAP No 06/02/25 15:15 Do you snore loudly (louder than talking or can be heard Do you often feel tired/ fatigued/ sleepy during daytime? Has anyone observed you stop breathing during sleep? STOP Results Positive 06/02/25 15:15 QUESTION #5 FULL TEXT : Do you snore loudly (louder than talking or can be heard through closed doors)? 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 Specify any problems Hx of Preganancy in last 3 N/A 06/02/25 15:15 Months Nurse Filling Out Transfusion HAILEE 06/02/25 15:15 & Questions: Date: 06/02/25 06/02/25 15:15 Time: 15:17 06/02/25 15:15 Patient unable to answer at this time (ie. confused, unrespo /Reproduction History /Reproductive History - environmental protection economist: /Reproductive Hx- environmental protection economist Hx Now No 06/02/25 15:15 Gestational Age (in weeks): EDC: Hx Hx Para Hx Section SAB No 06/02/25 15:15 Active Medications Active Medications: Current Medications Generic Name Dose Route Start Last Admin Trade Name Freq PRN Reason Stop Dose Admin Lactated Ringer's 1,000 mls @ 15 mls/hr 06/08/25 08:00 IV .Q48H CHARLES PFSH Medical History (Updated 06/02/25 @ 15:25 by Dulce Lyman) Bipolar disorder Excessive bleeding History of diverticulitis History of IBS Gastric reflux Former smoker Arthritis Migraine headache Non-smoker History of echocardiogram History of stress test History of CHF (congestive heart failure) Schizophrenia Diabetes Hypertension Home Medications ?Medication ?Instructions ?Recorded ?Last Taken ?Type metformin 500 mg tablet 1,000 tab PO BID 03/11/22 History glimepiride 4 mg tablet 4 mg PO QAM 12/08/24 5 History lisinopril 40 mg tablet 40 mg PO QDAY 12/08/2402/23 History pioglitazone 15 mg tablet 15 mg PO QDAY 12/08/2402/23 History amlodipine 5 mg tablet 10 mg PO DAILY 12/16/2402/13 History atenolol 50 mg tablet 50 mg PO QDAY 12/16/2402/24 History pantoprazole 40 mg tablet,delayed 40 mg PO BID #60 tab s 03/17/25 Unknown Rx release lubiprostone 24 mcg capsule 24 mcg PO BID #60 caps Unknown Rx (Amitiza) meloxicam 15 mg tablet 15 mg PO DAILY PRN pain #20 tabs 04/25/25 Unknown Rx sucralfate 1 gram tablet (Carafate) 1 g PO Q6H PRN aci d reflux 06/02/25 Unknown History Allergy/AdvReac Type Severity Reaction Status Date / Time No Known Allergies Allergy Verified 06/08/25 07:47 Family History Brother CAD (coronary artery disease) Surgical History (Updated 06/02/25 @ 15:15 by Dulce Lyman) History of esophagogastroduodenoscopy (EGD) History of laparoscopic cholecystectomy History of cholecystectomy Social History household members: spouse current occupational status: disabled Smoking Status: Former smoker alcohol intake: never substance use type: does not use Review of Systems (Anesthesia) ROS Narrative System reviewed and no additional complaints, except as documented.
[2025-06-08] MEDS: Lactated Ringers 1,000 ML 15 ML IV (08:13)
--- NOTE | 2025-06-08 08:15 | COLBX_PTH ---
PATIENT: ANASTACIO MURILLO LOC: EN U#:[id number] AGE/SX: 44/M ROOM: RE06/08/[address]: Dr. Giovanny Sharma DO : 1980 BED: DIS: 06/08/2025 SPEC #: [id number] RECD: 06/08/25 11:14 STATUS: [employer] #: [id number] LINDA: 06/08/25 08:[address]: Giovanny Sharma DEPT: SURGICAL PATHOLOGY RECD BY: Mikel Gay ENTERED: 06/08/25 11:33 SP TYPE: COLON BX OTHR DR: No Primary Care Phys Tissues: A - Gastric mucous membrane B - Esophagus, NOS Procedures: Immunohistochemical Stains Surgery Specimen Level IV HEADER OPERATION: Colonoscopy, EGD with biopsy PRE-OP DIAGNOSIS: Gastroparesis, weight loss, erosive esophagitis TISSUE SUBMITTED: A- Gastric body biopsy, B- Distal esophagus biopsy MICROSCOPIC DIAGNOSIS A. Gastric body, biopsy: - Oxyntic mucosa with chronic inflammation. - IHC negative for H. pylori organisms. B. Distal esophagus, biopsy: - Squamous mucosa with reactive changes. - Columnar mucosa negative for goblet cell metaplasia. MICROSCOPIC DESCRIPTION Slides are reviewed. Slides are reviewed. All matched controls reacted appropriately. These tests were developed and their performance characteristics determined by [facility]. They may not have been cleared or approved by the [place]. Food and Drug Administration. The FDA has determined that such clearance or approval is not necessary. The above immunohistochemical markers and/or special stains have been reviewed by the Pathologist. GROSS DESCRIPTION A. Received in fixative is one container labeled with the patient's name and designated Gastric body biopsy. The specimen consists of three irregular fragments of light muñoz soft tissue that measure 0.3 to 0.7 cm. The specimen is totally submitted in one cassette. B. Received in fixative is one container labeled with the patient's name and designated Distal esophagus biopsy. The specimen consists of two irregular fragments of light muñoz soft tissue, each measuring 0.4 cm. The specimen is totally submitted in one cassette. [place] 06/08/2025 CPT:85005f7 ,[id number]
--- NOTE | 2025-06-08 08:16 | PCM.HP.STD ---
HPI - General General Date of Admission: 06/08/25 Date of Service: 06/08/25 Chief Complaint: GERD and repeat colonoscopy due to poor prep HPI Narrative ANASTACIO MURILLO, is a 44 M who presentsMICNIGEL MURILLO, is a 43 M who presents to the office today for - seen in the office today with his GF He has a tiny umbilical hernia (6mm), reports this is a 9/10 abdominal pain which has been present ever since CCX. He reports the umbilical pain was so severe a couple weeks ago he was vomiting. - although when he points to location of pain he points to mid low pelvis as location of severe pain - he does endorse umbilical pain but states this is not as severe - having abdominal pain for a while, below umbilicus, sharp pain - report she can vomit for 2-3 weeks in a row - umbilical pain, every since CCX, sharp like someone punching me - no change in pain with PO intake, bowel movement or movement - vomiting is about 1 hour after eating and he does vomit food at times - denies any fevers - denies any early satiety - he is on Metoclopramide 10mg QID GES 2020 severe gastroparesis with >50% retained at 4h - per patient CCX - emesis of bile, brown, yellow, orange - states he could only keep water down - this last episode of emesis was 2 weeks ago - vomiting episodes last for a couple weeks or more, reports he cannot keep anything down during this time - he is losing weight - reports this is unintentional but he does nt mind the weight loss - he is uncertain if his current pain is the same pain he had prior to CCX - states he used to have a BM 2-3x a day - he has a BM 2-3x a week - stools can be soft or formed - denies any bleeding - Tylenol and Aleve for abdominal pain - these help some - dicyclomine 20mg QID PRN - tylenol and aleve work better for pain - he reports GES revealed 90% retained gastric contents in 2023 B: protein shake L: fast food - but trying to get away from this D: protein, vegetable - he is not taking nay fiber supplements - he is not on a probiotic - denies any smoking or EtOH use - denies any marijuana use [facility] Medical History Bipolar disorder Excessive bleeding History of diverticulitis History of IBS Gastric reflux Former smoker Arthritis Migraine headache Non-smoker History of echocardiogram History of stress test History of CHF (congestive heart failure) Schizophrenia Diabetes Hypertension Home Medications ?Medication ?Instructions ?Recorded ?Last Taken ?Type metformin 500 mg tablet 1,000 tab PO BID 03/11/22 06/07/25 History glimepiride 4 mg tablet 4 mg PO QAM 12/08/24 06/07/25 History lisinopril 40 mg tablet 40 mg PO QDAY 12/08/24 06/07/25 History pioglitazone 15 mg tablet 15 mg PO QDAY 12/08/24 06/07/25 History amlodipine 5 mg tablet 10 mg PO DAILY 12/16/24 06/08/25 History atenolol 50 mg tablet 50 mg PO QDAY 12/16/24 06/08/25 History pantoprazole 40 mg tablet,delayed 40 mg PO BID #60 tabs 03/17/25 06/07/25 Rx release lubiprostone 24 mcg capsule 24 mcg PO BID #60 caps 04/19/25 06/07/25 Rx (Amitiza) meloxicam 15 mg tablet 15 mg PO DAILY PRN pain #20 tabs 04/25/25 06/07/25 Rx sucralfate 1 gram tablet (Carafate) 1 g PO Q6H PRN acid reflux 06/02/25 06/07/25 History Allergy/AdvReac Type Severity Reaction Status Date / Time No Known Allergies Allergy Verified 06/08/25 07:47 Family History Brother CAD (coronary artery disease) Surgical History History of esophagogastroduodenoscopy (EGD) History of laparoscopic cholecystectomy History of cholecystectomy Social History household members: spouse current occupational status: disabled Smoking Status: Former smoker alcohol intake: never substance use type: does not use ROS Constitutional Constitutional: Denies fatigue, fever(s), poor appetite, weight gain or weight loss Gastrointestinal Gastrointestinal: Denies belching, bloating, change in bowel habits, change in stool character, chewing difficulty, coffee ground emesis, constipation, cramping, diarrhea, dyspepsia, dysphagia, early satiety, excessive flatus, fecal incontinence, heartburn, hematemesis, hematochezia, hemorrhoids, loose stools, melena, nausea, odynophagia, rectal bleeding, tenesmus, vomiting or weight changes Vital Signs Vital Signs Vital Signs: 06/08/25 08:03 06/08/25 08:03 06/08/25 08:04 Temperature 97.6 F L Temperature Source Temporal Pulse Rate 98 Respiratory Rate 17 Respiratory Pattern Normal Blood Pressure Source Monitor Blood Pressure Position Semi-Fowlers Blood Pressure Location Right Arm Pulse Ox 100 Oxygen Delivery Method Room Air Room Air Weight Weight: 218 lb 4.122 oz Body Mass Index (BMI) 29.6 Physical Exam Const alert, oriented x3, no apparent distress and healthy appearing General Appearance: cooperative GI normal to inspection, nondistended, normoactive bowel sounds, soft to palpation, non-tender and non-distended Percussion: normal to percussion Rectal Exam: deferred Assessment & Plan Assessment/Plan (1) Gastroparesis: (2) Weight loss: (3) Erosive esophagitis: PLAN: Assessment and Plan Assessment and Plan (1) Vomiting bile: Status: Chronic Qualifiers: Nausea presence: unspecified Qualified Code(s): R11.14 - Bilious vomiting (2) Steatosis, liver: Status: Acute (3) Combined abdominal and pelvic pain: Status: Acute (4) Periumbilical abdominal pain: Status: Acute (5) Weight loss: Status: Acute (6) Gastroparesis: Status: Acute Orders: Orders Miscellaneous Lab Procedure Today K76.0 - Fatty (change of) liver, not elsewhere classified, R10.2 - Pelvic and perineal pain, R10.33 - Periumbilical pain, R10.9 - Unspecified abdominal pain, R11.14 - Bilious vomiting Hepatitis A AB, Total Today K76.0 - Fatty (change of) liver, not elsewhere classified, R10.2 - Pelvic and perineal pain, R10.33 - Periumbilical pain, R10.9 - Unspecified abdominal pain, R11.14 - Bilious vomiting Hepatitis B Core Ab Total Today K76.0 - Fatty (change of) liver, not elsewhere classified, R10.2 - Pelvic and perineal pain, R10.33 - Periumbilical pain, R10.9 - Unspecified abdominal pain, R11.14 - Bilious vomiting Hepatitis B Surface Antibody Today K76.0 - Fatty (change of) liver, not elsewhere classified, R10.2 - Pelvic and perineal pain, R10.33 - Periumbilical pain, R10.9 - Unspecified abdominal pain, R11.14 - Bilious vomiting Hepatitis B Surface Antigen Today K76.0 - Fatty (change of) liver, not elsewhere classified, R10.2 - Pelvic and perineal pain, R10.33 - Periumbilical pain, R10.9 - Unspecified abdominal pain, R11.14 - Bilious vomiting Hepatitis C Antibody Today K76.0 - Fatty (change of) liver, not elsewhere classified, R10.2 - Pelvic and perineal pain, R10.33 - Periumbilical pain, R10.9 - Unspecified abdominal pain, R11.14 - Bilious vomiting ABD Limited w/ Elastography Today K76.0 - Fatty (change of) liver, not elsewhere classified, R10.2 - Pelvic and perineal pain, R10.33 - Periumbilical pain, R10.9 - Unspecified abdominal pain, R11.14 - Bilious vomiting Medications: New linaclotide (Linzess) take 30 minutes before breakfast every morning 72 mcg PO QAM 30 caps 0RF constipation pantoprazole take 30 minutes before breakfast every morning 40 mg PO QDAY 90 tabs 0RF Discontinued dicyclomine Discontinued Reason: Order Changed 20 mg PO Q6H PRN PRN abdominal pain Plan 43-year-old male presents for initial consultation with complaints of abdominal pain and vomiting. He has had an unintentional weight loss of greater than 40 pounds in the past 3 years. He is experiencing lower mid abdominal pain as well as periumbilical pain which he describes as sharp, nonradiating and present since cholecystectomy in 2015. He also complains of intermittent postprandial emesis of bile and occasionally food. Gastric emptying study completed in 2020 revealed severe gastroparesis with greater than 50% retention at 4 hours. He is taking metoclopramide 10 mg 4 times daily. We have reviewed a gastroparesis diet as well. I recommend discontinuing dicyclomine. He reports a change in bowel habits, frequency of stools has decreased from 2-3 times a day to no more than 3 times a week. He denies any bleeding. He does endorse improvement in lower pelvic abdominal pain post bowel movement. I have started him on Linzess 72 mcg and pantoprazole 40 mg once daily, and scheduled him for colonoscopy and EGD. CT scan of the abdomen and pelvis with IV contrast was completed 11/28/2023 and revealed moderate stool in the colon, pancreatic atrophy and hepatic steatosis. Labs completed at that time revealed WBC 14.5, hemoglobin 17.5, sodium 135, glucose 359, normal transaminases. I have scheduled him for an abdominal ultrasound with elastography. He will also complete additional labs and follow-up in the office post procedures. Patient Instructions: Discontinue Dicyclomine - this may be contributing to gastroparesis Linzess 72mcg once daily Complete US with Elastography Start pantoprazole 40mg daily Complete labs today Eat small meals Avoid raw fruits and vegetables follow-up in office post procedure Plan Details Follow Up: 8 Weeks
--- NOTE | 2025-06-08 09:08 | OP.EGD_ITS ---
Patient Name: Kristopher Posey Procedure Date: 06/08/2025 8:15 AM Date of : 1980 Age: 44 Procedure: Upper GI endoscopy Indications: Epigastric abdominal pain, Abdominal pain in the left upper quadrant, Functional Dyspepsia, Heartburn Providers: Giovanny Sharma DO Referring MD: No Primary Care Physician Medicines: Monitored Anesthesia Care Patient Profile: This is a 44 year old male. Refer to note in patient chart for documentation of history and physical. Patient has symptoms of chronic abdominal cramping, acute epigastric abdominal pain, chronic heartburn and chronic nausea. Complications: No immediate complications. Procedure: Pre-Anesthesia Assessment: - Prior to the procedure, a History and Physical was performed, and patient medications and allergies were reviewed. The patient is competent. The risks and benefits of the procedure and the sedation options and risks were discussed with the patient. All questions were answered and informed consent was obtained. Patient identification and proposed procedure were verified by the physician in the pre-procedure area. Mental Status Examination: normal. Airway Examination: normal oropharyngeal airway and neck mobility. Respiratory Examination: clear to auscultation. CV Examination: normal. Prophylactic Antibiotics: The patient does not require prophylactic antibiotics. Prior Anticoagulants: The patient has taken no anticoagulant or antiplatelet agents. ASA Grade Assessment: II - A patient with mild systemic disease. After reviewing the risks and benefits, the patient was deemed in satisfactory condition to undergo the procedure. The anesthesia plan was to use monitored anesthesia care (MAC). Immediately prior to administration of medications, the patient was re-assessed for adequacy to receive sedatives. The heart rate, respiratory rate, oxygen saturations, blood pressure, adequacy of pulmonary ventilation, and response to care were monitored throughout the procedure. The physical status of the patient was re-assessed after the procedure. After obtaining informed consent, the endoscope was passed under direct vision. Throughout the procedure, the patient's blood pressure, pulse, and oxygen saturations were monitored continuously. The colonoscope was introduced through the mouth, and advanced to the third part of the duodenum. Small bowel enteroscopy was deemed necessary. The upper GI endoscopy was accomplished with ease. The patient tolerated the procedure well. Scope In: 8:34:43 AM Scope Out: 8:38:52 AM Total Procedure Duration Time 0 hours 4 minutes 9 seconds Findings: The examined esophagus was normal. The Z-line was irregular and was found 40 cm from the incisors. Biopsies were taken with a cold forceps for histology. Verification of patient identification for the specimen was done. Estimated blood loss was minimal. Scattered mild inflammation characterized by congestion (edema) and erythema was found in the gastric body. Biopsies were taken with a cold forceps for histology. Verification of patient identification for the specimen was done. Estimated blood loss was minimal. No gross lesions were noted in the entire examined duodenum. Impression: - Normal esophagus. - Z-line irregular, 40 cm from the incisors. Biopsied. - Chronic gastritis. Biopsied. - No gross lesions in the entire examined duodenum. Recommendation: - Discharge patient to home. - Resume previous diet. - Continue present medications. - Await pathology results. Procedure Code(s): --- Professional --- 93016, Small intestinal endoscopy, enteroscopy beyond second portion of duodenum, not including ileum; with biopsy, single or multiple CPT copyright 2021 [employer]. All rights reserved. The codes documented in this report are preliminary and upon associate civil engineer review may be revised to meet current compliance requirements. Giovanny Sharma DO 06/08/2025 9:07:34 AM This report has been signed electronically. Number of Addenda: 0 Note Initiated On: 06/08/2025 8:15 AM
--- NOTE | 2025-06-08 09:08 | OP.PROVAT_ITS ---
06/08/2025 No Primary Care Physician Re : Upper GI endoscopy procedure for Kristopher Posey Dear Care Physician This procedure was performed on Sunday, June 08, 2025. My impressions and recommendations are as follows: Impressions : - Normal esophagus. - Z-line irregular, 40 cm from the incisors. Biopsied. - Chronic gastritis. Biopsied. - No gross lesions in the entire examined duodenum. Recommendations : - Discharge patient to home. - Resume previous diet. - Continue present medications. - Await pathology results. My findings are described in the full procedure note, which is enclosed. If I can be of further assistance, please feel free to contact me at . Sincerely, Giovanny Sharma, 06/08/2025 9:07:34 AM This report has been signed electronically.
--- NOTE | 2025-06-08 09:15 | OP.COLON_ITS ---
Patient Name: Kristopher Posey Procedure Date: 06/08/2025 8:39 AM Date of : 1980 Age: 44 Procedure: Colonoscopy Indications: Generalized abdominal pain Providers: Giovanny Sharma DO Referring MD: No Primary Care Physician Medicines: Monitored Anesthesia Care Patient Profile: This is a 44 year old male. Refer to note in patient chart for documentation of history and physical. Patient has symptoms of chronic abdominal cramping, acute epigastric abdominal pain, chronic heartburn and chronic nausea. Last Colonoscopy: date unknown. Unable to locate last colonoscopy report. Complications: No immediate complications. Procedure: Pre-Anesthesia Assessment: - Prior to the procedure, a History and Physical was performed, and patient medications and allergies were reviewed. The patient is competent. The risks and benefits of the procedure and the sedation options and risks were discussed with the patient. All questions were answered and informed consent was obtained. Patient identification and proposed procedure were verified by the physician in the pre-procedure area. Mental Status Examination: normal. Airway Examination: normal oropharyngeal airway and neck mobility. Respiratory Examination: clear to auscultation. CV Examination: normal. Prophylactic Antibiotics: The patient does not require prophylactic antibiotics. Prior Anticoagulants: The patient has taken no anticoagulant or antiplatelet agents. ASA Grade Assessment: II - A patient with mild systemic disease. After reviewing the risks and benefits, the patient was deemed in satisfactory condition to undergo the procedure. The anesthesia plan was to use monitored anesthesia care (MAC). Immediately prior to administration of medications, the patient was re-assessed for adequacy to receive sedatives. The heart rate, respiratory rate, oxygen saturations, blood pressure, adequacy of pulmonary ventilation, and response to care were monitored throughout the procedure. The physical status of the patient was re-assessed after the procedure. After I obtained informed consent, the scope was passed under direct vision. Throughout the procedure, the patient's blood pressure, pulse, and oxygen saturations were monitored continuously. The colonoscope was introduced through the anus and advanced to the cecum, identified by appendiceal orifice and ileocecal valve. The colonoscopy was performed without difficulty. The patient tolerated the procedure well. The quality of the bowel preparation was fair. The ileocecal valve, appendiceal orifice, and rectum were photographed. Scope In: 8:40:43 AM Scope Withdrawal Time 0 hours 8 minutes 32 seconds Scope Out: 8:54:10 AM Total Procedure Duration Time 0 hours 13 minutes 27 seconds Findings: The perianal and digital rectal examinations were normal. Multiple small and large-mouthed diverticula were found in the recto-sigmoid colon and sigmoid colon. Stool was found in the rectum, in the recto-sigmoid colon, in the sigmoid colon, in the descending colon, at the splenic flexure and in the ascending colon. Impression: - Preparation of the colon was fair. - Diverticulosis in the recto-sigmoid colon and in the sigmoid colon. - Stool in the rectum, in the recto-sigmoid colon, in the sigmoid colon, in the descending colon, at the splenic flexure and in the ascending colon. - No specimens collected. Recommendation: - Discharge patient to home. - Resume previous diet. - Continue present medications. - Repeat colonoscopy in 1 year because the bowel preparation was suboptimal. Procedure Code(s): --- Professional --- 55052, Colonoscopy, flexible; diagnostic, including collection of specimen(s) by brushing or washing, when performed (separate procedure) CPT copyright 2021 [employer]. All rights reserved. The codes documented in this report are preliminary and upon public service director review may be revised to meet current compliance requirements. Giovanny Sharma DO 06/08/2025 9:14:54 AM This report has been signed electronically. Number of Addenda: 0 Note Initiated On: 06/08/2025 8:39 AM
--- NOTE | 2025-06-08 09:15 | OP.PROVAT_ITS ---
06/08/2025 No Primary Care Physician Re : Colonoscopy procedure for Kristopher Posey Dear Care Physician This procedure was performed on Sunday, June 08, 2025. My impressions and recommendations are as follows: Impressions : - Preparation of the colon was fair. - Diverticulosis in the recto-sigmoid colon and in the sigmoid colon. - Stool in the rectum, in the recto-sigmoid colon, in the sigmoid colon, in the descending colon, at the splenic flexure and in the ascending colon. - No specimens collected. Recommendations : - Discharge patient to home. - Resume previous diet. - Continue present medications. - Repeat colonoscopy in 1 year because the bowel preparation was suboptimal. My findings are described in the full procedure note, which is enclosed. If I can be of further assistance, please feel free to contact me at . Sincerely, Giovanny Sharma, 06/08/2025 9:14:54 AM This report has been signed electronically.
--- NOTE | 2025-06-08 09:35 | PCM.POST.ANE ---
Anesthesia: Postop Eval I Current Vital Signs Temperature: 97.8 F Pulse Rate: 81 Blood Pressure: 119/82 Respiratory Rate: 16 Pulse Ox: 98 Oxygen Delivery Method: Room Air Assessment Airway patent: Yes Spontaneous unlabored respirations: Yes Mental status: Asleep nausea: No Vomiting: No Anesthesia Complication: No Fluid Hydration Crystalloid volume administer (ml): 500 Total IV fluid infused: 500 Progress Note Anesthesia document: Postop Eval 1 completed: Yes
--- NOTE | 2025-06-08 12:31 | PCM.POSTANE2 ---
Anesthesia Postop Eval I Sum Postop Eval Completion status Anesthesia document: Postop Eval 1 completed: Yes Anesthesia Postop Eval I Summary Anesthesia Postop Eval I Summary: Anesthesia Postop Eval I: Assessment Summary Airway patent Yes 06/08/25 09:36 [email or web address] Spontaneous unlabored Yes 06/08/25 09:36 [email or web address] respirations Mental status Asleep 06/08/25 09:36 [email or web address] nausea No 06/08/25 09:36 [email or web address] Vomiting No 06/08/25 09:36 [email or web address] Anesthesia Postop Eval I: Fluid Summary Crystalloid volume administer 500 06/08/25 09:36 [email or web address] (ml) Colloids volume administered ( ml) Blood Product volume administered (ml) Total IV fluid infused 500 06/08/25 09:36 [email or web address] Anesthesia Postop Eval I: Summary Notes Anesthesia Complication No 06/08/25 09:36 [email or web address] Anesthesia Complication Comment: Post-operative progress note Anesthesia: Postop Eval II Evaluation Mental status: Awake and Calm Pain Level: 1 nausea: No Vomiting: No Complications Anesthesia Complication: No
== END 2025-06-08 09:51 | disposition home or self-care (01) ==
LOC: EN 07:44 → AC 07:45
PROVIDERS: Visit Provider Internal Medicine Gastroenterology
PROC: 0DJD8ZZ Inspection of Lower Intestinal Tract, Via Natural or Artificial Opening Endoscopic (ICD-10-PCS; CPT 45378; principal; 2025-06-08 08:10)
DX: K29.50 Unspecified chronic gastritis without bleeding (principal); I11.0 Hypertensive heart disease with heart failure; I50.9 Heart failure, unspecified; E11.43 Type 2 diabetes mellitus with diabetic autonomic (poly)neuropathy; K31.84 Gastroparesis; Z87.891 Personal history of nicotine dependence; K57.30 Diverticulosis of large intestine without perforation or abscess without bleeding; Z79.84 Long term (current) use of oral hypoglycemic drugs; Z79.899 Other long term (current) drug therapy; K21.9 Gastro-esophageal reflux disease without esophagitis
CPT/HCPCS: 45378; 44361; 82962; 88305; 88342; J2405

== ENCOUNTER 2025-06-17 12:46 | Emergency (ER) | payer MEDICAID, SELFPAY ==
[2025-06-17 12:46] VITALS: BP 156/103; PULSE 93; RESP 14; TEMP 36.8; O2SAT 100
[2025-06-17 12:48] VITALS: BMI 29.8
--- NOTE | 2025-06-17 14:04 | CT_ITS ---
PROCEDURE: ABDOMEN/PELVIS W IV CONT ONLY 06/17/2025 REASON FOR EXAM: SUPRAPUBIC ABDOMINAL PAIN AFTER COLONOSCOPY TECHNIQUE: Procedure Code: [id number] Modality: CT Procedure: ABDOMEN/PELVIS W IV CONT ONLY Coronal and Sagittal reconstruction series were provided. CONTRAST: 100 cc of Isovue 370 intravenous contrast. One or more dose reduction techniques were used (e.g., Automated exposure control, adjustment of the mA and/or kV according to patient size, use of iterative reconstruction technique. COMPARISON: CT abdomen and pelvis 03/30/2025 FINDINGS: Lung bases: Unremarkable. Liver: Diffuse hepatic steatosis. Normal-size. No mass. Gallbladder: The gallbladder is not visualized and may be surgically absent. No biliary ductal dilatation. Spleen: Normal size. Pancreas: Diffuse fatty atrophy. Adrenals: Unremarkable. Kidneys: Normal renal sizes. No hydronephrosis. Bladder: Unremarkable. Reproductive Organs: The prostate is not enlarged. No pelvic masses. Bowel: Extensive colonic diverticulosis without acute diverticulitis. No bowel obstruction. Appendix: Normal. Lymph nodes: Unremarkable. Vasculature: The abdominal aorta and IVC are normal. Peritoneum / Retroperitoneum: No free fluid or air. Bones: Stable sclerotic lesion in the right iliac body. Additional smaller sclerotic lesions are again noted in the acetabular and bilateral femoral heads. No acute fractures. CT/Abdomen/Pelvis W IV Cont ONLY IMPRESSION: 1. No acute findings in the abdomen or pelvis. 2. Diffuse hepatic steatosis. 3. Extensive colonic diverticulosis without acute diverticulitis. 4. Stable sclerotic lesion in the right iliac body. Reading Location: [facility]
--- NOTE | 2025-06-17 14:26 | EX.ED.DYSGE1 ---
HPI History of Present Illness Chief Complaint: Abd Pain Narrative Narrative: Chief complaint and HPI: 44-year-old gentleman with past medical history of erosive esophagitis, gastroparesis, diabetes, schizophrenia, HTN presents for evaluation of lower abdominal pain. Patient states he had a colonoscopy with Dr. Sharma on 06/08. States since the colonoscopy he has had lower abdominal pain mostly located suprapubically. Associated symptom is nausea and decreased p.o. intake. States he has a history of constipation. He denies any fever, chills, shortness of breath, chest pain, dysuria, bloody bowel movements. Review of systems: See HPI Medications: As listed on the chart Allergies: As listed on the chart PFSH: Per chart Vital signs: As listed on the chart. Reviewed. Physical exam: Gen: A&O x3, NAD Head: Normocephalic, atraumatic Eyes: No sclera icterus, conjunctiva clear ENT: Moist mucous membranes CV: RRR, no murmurs Resp: Lungs CTA BL, no w/r/c GI: Abd soft, non-distended, mild tenderness to palpation in the suprapubic region, no r/r/g : No CVA tenderness Musc: Full ROM, no deformity Skin: Warm, dry Neuro: Alert, oriented, grossly intact, sensation intact Psych: Cooperative, appropriate mood and affect [facility] Medical History Bipolar disorder Excessive bleeding History of diverticulitis History of IBS Gastric reflux Former smoker Arthritis Migraine headache Non-smoker History of echocardiogram History of stress test History of CHF (congestive heart failure) Schizophrenia Diabetes Hypertension Home Medications ?Medication ?Instructions ?Recorded ?Last Taken ?Type metformin 500 mg tablet 1,000 tab PO BID 03/11/22 06/07/25 History glimepiride 4 mg tablet 4 mg PO QAM 12/08/24 06/07/25 History lisinopril 40 mg tablet 40 mg PO QDAY 12/08/24 06/07/25 History pioglitazone 15 mg tablet 15 mg PO QDAY 12/08/24 06/07/25 History amlodipine 5 mg tablet 10 mg PO DAILY 12/16/24 06/08/25 History atenolol 50 mg tablet 50 mg PO QDAY 12/16/24 06/08/25 History pantoprazole 40 mg tablet,delayed 40 mg PO BID #60 tabs 03/17/25 06/07/25 Rx release lubiprostone 24 mcg capsule 24 mcg PO BID #60 caps 04/19/25 06/07/25 Rx (Amitiza) meloxicam 15 mg tablet 15 mg PO DAILY PRN pain #20 tabs 04/25/25 06/07/25 Rx sucralfate 1 gram tablet (Carafate) 1 g PO Q6H PRN acid reflux 06/02/25 06/07/25 History Allergy/AdvReac Type Severity Reaction Status Date / Time No Known Allergies Allergy Verified 06/08/25 07:47 Family History Brother CAD (coronary artery disease) Surgical History History of esophagogastroduodenoscopy (EGD) History of laparoscopic cholecystectomy History of cholecystectomy Social History household members: spouse current occupational status: disabled Smoking Status: Former smoker alcohol intake: never substance use type: does not use EXAM Physical Exam Const Vital Signs: 06/17/25 12:46 Temperature 98.3 F Temperature Source Oral Pulse Rate 93 Respiratory Rate 14 Blood Pressure 156/103 H Blood Pressure Mean 120 Pulse Ox 100 Oxygen Delivery Method Room Air MDM MDM MDM Narrative Medical decision making narrative: 44-year-old gentleman with past medical history of erosive esophagitis, gastroparesis, diabetes, schizophrenia, HTN presents for evaluation of lower abdominal pain. Patient states he had a colonoscopy with Dr. Sharma on 06/08. States since the colonoscopy he has had lower abdominal pain mostly located suprapubically. Associated symptom is nausea and decreased p.o. intake. States he has a history of constipation. On chart review, patient had an EGD on 06/[address] Sharma. He had Z-line irregularity which were biopsied as well as chronic gastritis biopsied. He had a colonoscopy as well that was fair preparation. Diverticulosis. No specimens collected. Differential diagnosis includes but is not limited to UTI, constipation, urolithiasis, chronic abdominal pain, postoperative complication, diverticulitis. NS bolus, Zofran, morphine ordered for symptoms. Abdominal pain workup ordered including CT abdomen and pelvis. CBC with mild leukocytosis of 12.9, no anemia. CMP shows mild hypokalemia of 3.1. Which appears about patient's baseline. Will hold off on p.o. replacement until CT abdomen pelvis is performed. No transaminitis. No hyperbilirubinemia. Lipase unremarkable. UA and CT abdomen pelvis pending. Patient signed out to oncoming physician, Dr. Neff. Final disposition pending results. Lab Data Labs: Laboratory Results - last 24 hr 06/17/25 06/17/25 14:25 15:29 WBC 12.9 H RBC 5.39 Hgb 16.5 Hct 45.9 MCV 85.2 MCH 30.6 MCHC 35.9 RDW Std Deviation 40.5 RDW Coeff of Tobias 13.1 Plt Count 350 MPV 11.2 Immature Gran % (Auto) 0.400 Neut % (Auto) 65.7 Lymph % (Auto) 21.1 [place] % (Auto) 12.1 H Eos % (Auto) 0.2 Baso % (Auto) 0.5 Absolute Neuts (auto) 8.5 H Absolute Lymphs (auto) 2.71 Nucleated RBC % 0 Sodium 134 Potassium 3.1 L Chloride 91 L Carbon Dioxide 25.2 Anion Gap 18 H BUN 19 Creatinine 0.80 Est GFR (MDRD) Non-Af 113 BUN/Creatinine Ratio 23.5 H Glucose 126 H Lactic Acid < 1.0 Calcium 9.6 Total Bilirubin 0.86 AST 15 ALT 10 Alkaline Phosphatase 51 Total Protein 7.5 Albumin 3.6 Globulin 3.9 Albumin/Globulin Ratio 0.9 Lipase 22 Urine Color Yellow Urine Clarity Clear Urine pH 6.0 Ur Specific [place] 1.015 Urine Protein 30 H Urine Glucose (UA) 100 H Urine Ketones 150 A* Urine Occult Blood Negative Urine Nitrite Negative Urine Bilirubin Negative Urine Urobilinogen 1 H Ur Leukocyte Esterase Negative Discharge Plan Triage Chief Complaint: Abd Pain ED Provider: Khoa Urban Dx/Rx/DC Orders Prescriptions: No Action glimepiride 4 mg tablet 4 mg PO QAM pioglitazone 15 mg tablet 15 mg PO QDAY lisinopril 40 mg tablet 40 mg PO QDAY atenolol 50 mg tablet 50 mg PO QDAY pantoprazole 40 mg tablet,delayed release (DR/EC) 40 mg PO BID Qty: 60 3RF lubiprostone [Amitiza] 24 mcg capsule 24 mcg PO BID Qty: 60 2RF Rx Instructions: take twice daily with meals metformin 500 mg tablet 1,000 tab PO BID Patient Comments: TAKE 2 TABLETS BY MOUTH TWICE DAILY WITH MEALS amlodipine 5 mg tablet 10 mg PO DAILY sucralfate [Carafate] 1 gram tablet 1 g PO Q6H PRN (Reason: acid reflux) meloxicam 15 mg tablet 15 mg PO DAILY PRN (Reason: pain) Qty: 20 0RF Primary Care Provider: Care Physician,No Primary Referrals: Care Physician,No Primary [Primary Care Provider, Medical] Print Language: Welsh
[2025-06-17] MEDS: 0.9% Normal Saline (1000mL) 1,000 ML 999 ML IV (14:33)
[2025-06-17 14:38] LABS: Hematocrit 45.9 % (40-54); Hemoglobin 16.5 g/dL (13.0-16.5); Immature Granulocytes Count 0.050 X10^3/uL (0.0-0.0); Mean Corp Hgb Conc 35.9 g/dL (32-36); Mean Corpuscular Volume 85.2 fL (80-94); Mean Platelet Vol. 11.2 fl (6.2-12.0); NRBC Flagged by Analyzer 0 % (0-5); POSITIVE DIFFERENTIAL YES; Platelet Count 350 K/mm3 (150-450); RBC Distribution Width CV 13.1 % (11.6-14.6); RBC Distribution Width SD 40.5 fl (35.1-43.9); Red Blood Count 5.39 M/mm3 (4.6-6.2); White Blood Count 12.9 K/mm3 (4.4-11.0)
[2025-06-17 14:43] LABS: Differential Indicated SCAN CRITERIA MET
[2025-06-17 14:46] VITALS: BP 148/99
[2025-06-17 15:17] LABS: AST(SGOT) 15 U/L (<=37); Alanine Aminotransfer ALT/SGPT 10 U/L (<=46); Albumin, Serum 3.6 g/dL (3.5-5.0); Alkaline Phosphatase 51 U/L (40-129); Anion Gap 18 (5-15); BUN 19 mg/dL (4-19); BUN/Creat Ratio 23.5 RATIO (10-20); Calcium,Total 9.6 mg/dL (7.6-11.0); Carbon Dioxide 25.2 mmol/L (21.0-32.0); Chloride 91 mmol/L (98-108); Globulin 3.9 g/dL (2.2-4.2); Glucose 126 mg/dL (70-99); Lipase 22 U/L (13-75); Potassium 3.1 mmol/L (3.3-5.1)
[2025-06-17 16:00] VITALS: BP 144/68; PULSE 70; RESP 18; O2SAT 97
[2025-06-17 16:09] LABS: Mucous, Urine 0 SEEN /hpf (<or=2+)
[2025-06-17 16:35] LABS: Color, Urine Yellow (Yellow); Glucose, Dipstick 100 mg/dl (Normal); Leukocyte Esterase-Dipstick Negative /ul (Negative); Nitrite-Dipstick Negative (Negative); Occult Blood-Urine Negative /ul (Negative); Protein-Dipstick 30 mg/dl (Negative); Specific Gravity, Urine 1.015 (1.002-1.030); Urine Bilirubin Dipstick Negative (Negative)
[2025-06-17 16:39] LABS: Ketone-Dipstick 150 mg/dl (Negative)
[2025-06-17] MEDS: Potassium Chloride Oral Tablet 20 MEQ 60 MEQ PO (17:34)
[2025-06-17 17:53] VITALS: BP 127/84; PULSE 79; RESP 16; TEMP 36.6; O2SAT 100
[2025-06-17 18:00] LABS: Red Blood Cells-Urine 0-5 SEEN /hpf (0-5); Squamous Epithelial Cells - UA 0-5 SEEN /hpf (0-5)
[2025-06-17 18:27] LABS: Differential Comment SCANNED
== END 2025-06-17 17:54 | disposition home or self-care (01) ==
PROVIDERS: Emergency Provider Surgery; Visit Provider Surgery
DX: R10.30 Lower abdominal pain, unspecified (principal); R11.0 Nausea; E87.6 Hypokalemia; Z90.49 Acquired absence of other specified parts of digestive tract; Z87.891 Personal history of nicotine dependence
CPT/HCPCS: 74177; 80053; 81001; 83605; 83690; 85025; 96361; 96374; 96375; 99283; Q9967; A4216; J2405

== ENCOUNTER 2025-07-30 22:26 | Emergency (ER) | payer MEDICAID, SELFPAY ==
[2025-07-30 22:27] VITALS: BP 205/126; PULSE 106; RESP 18; TEMP 36.6; O2SAT 99; BMI 29.2
[2025-07-30] MEDS: 0.9% Normal Saline (1000mL) 1,000 ML 999 ML IV (22:52)
[2025-07-30 23:00] LABS: Red Blood Cells-Urine 0 SEEN /hpf (0-5); Squamous Epithelial Cells - UA 0 SEEN /hpf (0-5)
[2025-07-30 23:04] LABS: Hematocrit 47.5 % (40-54); Hemoglobin 17.1 g/dL (13.0-16.5); Immature Granulocytes Count 0.050 X10^3/uL (0.0-0.0); Mean Corp Hgb Conc 36.0 g/dL (32-36); Mean Corpuscular Volume 86.5 fL (80-94); Mean Platelet Vol. 10.8 fl (6.2-12.0); NRBC Flagged by Analyzer 0 % (0-5); Platelet Count 385 K/mm3 (150-450); RBC Distribution Width CV 13.0 % (11.6-14.6); RBC Distribution Width SD 40.6 fl (35.1-43.9); Red Blood Count 5.49 M/mm3 (4.6-6.2); White Blood Count 12.9 K/mm3 (4.4-11.0)
[2025-07-30 23:10] LABS: Glucose, Dipstick 250 mg/dl (Normal); Leukocyte Esterase-Dipstick Negative /ul (Negative); Nitrite-Dipstick Negative (Negative); Occult Blood-Urine Negative /ul (Negative); Protein-Dipstick 100 mg/dl (Negative); Specific Gravity, Urine 1.025 (1.002-1.030); Urine Bilirubin Dipstick Negative (Negative)
[2025-07-30 23:19] LABS: Color, Urine Yellow (Yellow)
[2025-07-30 23:20] LABS: Ketone-Dipstick 150 mg/dl (Negative); Mucous, Urine RARE /hpf (<or=2+)
[2025-07-30 23:50] LABS: AST(SGOT) 17 U/L (<=37); Alanine Aminotransfer ALT/SGPT 10 U/L (<=46); Albumin, Serum 4.6 g/dL (3.5-5.0); Alkaline Phosphatase 60 U/L (40-129); Anion Gap 20 (5-15); BUN 17 mg/dL (4-19); BUN/Creat Ratio 22.0 RATIO (10-20); Calcium,Total 10.0 mg/dL (7.6-11.0); Carbon Dioxide 23.1 mmol/L (21.0-32.0); Chloride 94 mmol/L (98-108); Estimated Creatinine Clearance 154.03 ml/min (50-250); Globulin 3.3 g/dL (2.2-4.2); Glucose 246 mg/dL (70-99); Lipase 12 U/L (13-75); Potassium 3.3 mmol/L (3.3-5.1)
--- NOTE | 2025-07-31 | CT_ITS ---
PROCEDURE: CT/Abdomen/Pelvis W IV Cont ONLY
[2025-07-31 00:15] VITALS: BP 158/88; PULSE 91; RESP 22; O2SAT 100
[2025-07-31] MEDS: Dextrose 5%/0.9% NaCl 1,000 ML 1000 ML IV (00:38)
--- NOTE | 2025-07-31 00:38 | EX.ED.DYSGE1 ---
HPI History of Present Illness Chief Complaint: Abd Pain Narrative Narrative: Patient was seen and examined after presenting to ED for abdominal pain ongoing for about 4 days stated seem more like on the right but now he is endorsing more generalized but now its worst suprapubically still has his appendix states bumps in the road bother him no testicular pain no hematuria. [facility] Medical History Bipolar disorder Excessive bleeding History of diverticulitis History of IBS Gastric reflux Former smoker Arthritis Migraine headache Non-smoker History of echocardiogram History of stress test History of CHF (congestive heart failure) Schizophrenia Diabetes Hypertension Home Medications ?Medication ?Instructions ?Recorded ?Last Taken ?Type metformin 500 mg tablet 1,000 tab PO BID 03/11/22 06/07/25 History glimepiride 4 mg tablet 4 mg PO QAM 12/08/24 06/07/25 History lisinopril 40 mg tablet 40 mg PO QDAY 12/08/24 06/07/25 History pioglitazone 15 mg tablet 15 mg PO QDAY 12/08/24 06/07/25 History amlodipine 5 mg tablet 10 mg PO DAILY 12/16/24 06/08/25 History atenolol 50 mg tablet 50 mg PO QDAY 12/16/24 06/08/25 History pantoprazole 40 mg tablet,delayed 40 mg PO BID #60 tabs 03/17/25 06/07/25 Rx release lubiprostone 24 mcg capsule 24 mcg PO BID #60 caps 04/19/25 06/07/25 Rx (Amitiza) meloxicam 15 mg tablet 15 mg PO DAILY PRN pain #20 tabs 04/25/25 06/07/25 Rx sucralfate 1 gram tablet (Carafate) 1 g PO Q6H PRN acid reflux 06/02/25 06/07/25 History dicyclomine 20 mg tablet 20 mg PO Q6H PRN PRN abdominal 07/31/25 Unknown Rx discomfort #20 tabs ondansetron 4 mg disintegrating 4 mg PO Q8H PRN PRN Nausea #20 tabs 07/31/25 Unknown Rx tablet Allergy/AdvReac Type Severity Reaction Status Date / Time No Known Allergies Allergy Verified 07/30/25 22:30 Family History Brother CAD (coronary artery disease) Surgical History History of esophagogastroduodenoscopy (EGD) History of laparoscopic cholecystectomy History of cholecystectomy Social History household members: spouse current occupational status: disabled Smoking Status: Former smoker alcohol intake: never substance use type: does not use ROS ROS ED ROS Narrative Pertinent Positives: Generalized abdominal pain with nausea Pertinent Negatives: Fevers chills vomiting diarrhea black or bloody stools hematuria testicular pain The remainder of review of systems negative unless otherwise stated in the HPI above. Systems reviewed including constitutional, psychiatric, cardiovascular, respiratory, integument, HENT, gastrointestinal. EXAM Physical Exam Narrative Exam Narrative: Patient is afebrile hemodynamically stable normocephalic and atraumatic does not appear toxic. He is not in distress. His abdomen is soft nondistended but has diffuse tenderness no overlying hernias that are visible no overlying abdominal wall cellulitis vesicular lesions no crepitus no other skin discoloration. Const Vital Signs: 07/30/25 22:27 07/31/25 00:15 07/31/25 02:00 Temperature 97.8 F Temperature Source Rectal Pulse Rate 106 H 91 91 Respiratory Rate 18 22 H 20 H Blood Pressure 205/126 H 158/88 H 162/93 H Blood Pressure Mean 152 111 116 Pulse Ox 99 100 95 Oxygen Delivery Method Room Air Room Air MDM MDM MDM Narrative Medical decision making narrative: Nursing notes, triage notes, available previous documentation, and vital signs were reviewed. Any discrepancies noted were addressed. Differential Diagnoses: Need to consider appendicitis cholecystitis pancreatitis diverticular disease pyelonephritis nephrolithiasis although lower suspicion for aortic etiology Interventions: Morphine Zofran [Antibiotics Given: Fluids Given: 1 L normal saline and 1 L of D5 normal saline for the ketotic urine] Labs Reviewed: Leukocytosis 12.9 hemoglobin is 17.1 no significant electrolyte derangements. No renal insufficiency. No transaminitis lipase was 12. Urine showing 150 ketones with 1 urobilinogen no evidence of infection Imaging Reviewed: Personally reviewed and interpreted by me: I reviewed with patient CT of the abdomen pelvis I do not see anything obvious that would require any intervention read of the urinary pending official read Previous Documentation Reviewed: None available or applicable at this time. ED Course: Patient presenting with abdominal pain he was given medications for it he was found to have ketotic urine so we will also give him D5 normal saline to help with that ketonuria. Patient CT was without any acute pathology just shows gastritis patient will be given prescription for Bentyl as well as Zofran return precautions follow-up recommendations provide patient stable for discharge home This note was made utilizing voice recognition software. All attempts were made to correct spelling or other errors prior to note completion. However, due to the fast-paced nature of emergency medicine, some errors may still be present. Lab Data Labs: Laboratory Results - last 24 hr 07/30/25 07/30/25 22:40 22:50 WBC 12.9 H RBC 5.49 Hgb 17.1 H Hct 47.5 MCV 86.5 MCH 31.1 MCHC 36.0 RDW Std Deviation 40.6 RDW Coeff of Tobias 13.0 Plt Count 385 MPV 10.8 Immature Gran % (Auto) 0.400 Neut % (Auto) 75.5 H Lymph % (Auto) 13.7 L [place] % (Auto) 10.0 Eos % (Auto) 0.1 Baso % (Auto) 0.3 Absolute Neuts (auto) 9.7 H Absolute Lymphs (auto) 1.76 Nucleated RBC % 0 Sodium 137 Potassium 3.3 Chloride 94 L Carbon Dioxide 23.1 Anion Gap 20 H BUN 17 Creatinine 0.75 Estim Creat Clear Calc 154.03 Est GFR (MDRD) Non-Af 115 BUN/Creatinine Ratio 22.0 H Glucose 246 H Lactic Acid 1.9 Calcium 10.0 Total Bilirubin 1.10 AST 17 ALT 10 Alkaline Phosphatase 60 Total Protein 7.9 Albumin 4.6 Globulin 3.3 Albumin/Globulin Ratio 1.4 Lipase 12 L Urine Color Yellow Urine Clarity Clear Urine pH 6.0 Ur Specific [place] 1.025 Urine Protein 100 H Urine Glucose (UA) 250 H Urine Ketones 150 A* Urine Occult Blood Negative Urine Nitrite Negative Urine Bilirubin Negative Urine Urobilinogen 1 H Ur Leukocyte Esterase Negative Urine RBC 0 SEEN Urine WBC 0 SEEN Ur Squamous Epith Cells 0 SEEN Urine Bacteria 0 SEEN Hyaline Casts 0-5 SEEN Urine Mucus RARE Radiography Diagnostic Testing: Clinical Impression(s) from Imaging Studies Abdomen/Pelvis CT 07/31/25 00:00 IMPRESSION: Hepatic steatosis. Prior cholecystectomy. Diffuse thickening of the stomach suggestive of gastritis. Diffuse colonic diverticulosis. Mild thickening of the colon, probably mild colitis without perforation or abscess formation. Reading Location: [place] [id number] Discharge Plan Triage Chief Complaint: Abd Pain ED Provider: Melissa Del Cid Dx/Rx/DC Orders Clinical Impression: Abdominal pain, Ketonuria, Nausea, Gastritis Instructions: ED Gastritis (Adult) Prescriptions: New ondansetron 4 mg tablet,disintegrating 4 mg PO Q8H PRN PRN (Reason: Nausea) Qty: 20 0RF dicyclomine 20 mg tablet 20 mg PO Q6H PRN PRN (Reason: abdominal discomfort) Qty: 20 0RF No Action glimepiride 4 mg tablet 4 mg PO QAM pioglitazone 15 mg tablet 15 mg PO QDAY lisinopril 40 mg tablet 40 mg PO QDAY atenolol 50 mg tablet 50 mg PO QDAY pantoprazole 40 mg tablet,delayed release (DR/EC) 40 mg PO BID Qty: 60 3RF lubiprostone [Amitiza] 24 mcg capsule 24 mcg PO BID Qty: 60 2RF Rx Instructions: take twice daily with meals metformin 500 mg tablet 1,000 tab PO BID Patient Comments: TAKE 2 TABLETS BY MOUTH TWICE DAILY WITH MEALS amlodipine 5 mg tablet 10 mg PO DAILY sucralfate [Carafate] 1 gram tablet 1 g PO Q6H PRN (Reason: acid reflux) meloxicam 15 mg tablet 15 mg PO DAILY PRN (Reason: pain) Qty: 20 0RF Primary Care Provider: Care Physician,No Primary Referrals: Alyssa Prado MD [Med Staff - [facility], Internal Medicine] Care Physician,No Primary [Primary Care Provider, Medical] Activity Restrictions/Additional Instructions: Follow-up with the primary care doctor we are providing you with medications to help with the spasmodic belly pain that you are having make sure you are staying hydrated you will also be given nausea medicine please return if you are having worsening pain Print Language: Romanian Disposition Disposition: Home, Self Care
[2025-07-31 02:00] VITALS: BP 162/93; PULSE 91; RESP 20; O2SAT 95
[2025-07-31 05:03] VITALS: BP 171/103; PULSE 79; RESP 18; TEMP 36.6; O2SAT 98
== END 2025-07-31 05:03 | disposition home or self-care (01) ==
PROVIDERS: Emergency Provider Specialist/Technologist Athletic Trainer; Visit Provider Specialist/Technologist Athletic Trainer
DX: K29.70 Gastritis, unspecified, without bleeding (principal); I11.0 Hypertensive heart disease with heart failure; I50.9 Heart failure, unspecified; E11.9 Type 2 diabetes mellitus without complications; R82.4 Acetonuria; Z79.84 Long term (current) use of oral hypoglycemic drugs; Z79.899 Other long term (current) drug therapy; Z87.891 Personal history of nicotine dependence
CPT/HCPCS: 74177; 80053; 81001; 83605; 83690; 85025; 96361; 96365; 96366; 96375; 96376; 99283; Q9967; A4216; J2405

== ENCOUNTER → 2025-08-26 | Outpatient (CLI) | payer MEDICAID, SELFPAY ==
--- NOTE | 2025-08-26 12:40 | CT_ITS ---
PROCEDURE: ABDOMEN/PELVIS WITH CONTRAST 08/26/2025 REASON FOR EXAM: COMBINED ABDOMINAL AND PELVIC PAIN TECHNIQUE: Procedure Code: [id number] Modality: CT Procedure: ABDOMEN/PELVIS WITH CONTRAST Coronal and Sagittal reconstruction series were provided. CONTRAST: Isovue 370 VOLUME: 75 mL One or more dose reduction techniques were used (e.g., Automated exposure control, adjustment of the mA and/or kV according to patient size, use of iterative reconstruction technique. RADIATION DOSE SUMMARY: CTDlvol: 19.31 mGy DLP: 1132.36 mGycm COMPARISON: CT abdomen and pelvis July 31, 2025. FINDINGS: Lung bases: Clear Liver: Liver steatosis. Gallbladder: Cholecystectomy. No biliary dilation. Spleen: Unremarkable. Pancreas: Unremarkable. Adrenals: Unremarkable. Kidneys: No hydronephrosis. No nephrolithiasis. Bladder: Unremarkable. Reproductive Organs: Unremarkable. Bowel: No bowel wall thickening. No bowel obstruction. Appendix: Normal. Lymph nodes: No lymphadenopathy. Vasculature: No aneurysm. Peritoneum / Retroperitoneum: No free air or free fluid. Bones: No acute bony abnormalities. CT/Abdomen/Pelvis WITH Contrast IMPRESSION: No acute abdominopelvic abnormalities. Reading Location: [facility]
[2025-08-26 15:44] LABS: Hematocrit 43.5 % (40-54); Hemoglobin 15.1 g/dL (13.0-16.5); Immature Granulocytes Count 0.050 X10^3/uL (0.0-0.0); Mean Corp Hgb Conc 34.7 g/dL (32-36); Mean Corpuscular Volume 88.4 fL (80-94); Mean Platelet Vol. 12.6 fl (6.2-12.0); NRBC Flagged by Analyzer 0 % (0-5); Platelet Count 324 K/mm3 (150-450); RBC Distribution Width CV 12.6 % (11.6-14.6); RBC Distribution Width SD 41.3 fl (35.1-43.9); Red Blood Count 4.92 M/mm3 (4.6-6.2); White Blood Count 13.4 K/mm3 (4.4-11.0)
[2025-08-26 16:16] LABS: AST(SGOT) 14 U/L (<=37); Alanine Aminotransfer ALT/SGPT 11 U/L (<=46); Albumin, Serum 4.1 g/dL (3.5-5.0); Alkaline Phosphatase 70 U/L (40-129); Anion Gap 12 (5-15); BUN 9 mg/dL (4-19); BUN/Creat Ratio 15.6 RATIO (10-20); Calcium,Total 9.5 mg/dL (7.6-11.0); Carbon Dioxide 28.2 mmol/L (21.0-32.0); Chloride 97 mmol/L (98-108); Globulin 3.0 g/dL (2.2-4.2); Glucose 238 mg/dL (70-99); Lipase 12 U/L (13-75); Potassium 3.0 mmol/L (3.3-5.1)
== END | disposition home or self-care (01) ==
PROVIDERS: Referring Provider Student in an Organized Health Care Education/Training Program; Visit Provider Student in an Organized Health Care Education/Training Program
DX: R10.9 Unspecified abdominal pain (principal); R10.20 Pelvic and perineal pain unspecified side
CPT/HCPCS: 36415; 74177; 80053; 83690; 85025; Q9967

== ENCOUNTER 2025-09-08 09:05 | Day surgery (SDC) | payer MEDICAID, SELFPAY ==
--- NOTE | 2025-09-07 17:17 | PAT.ANE_ITS ---
Pre-Assessment Diagnosis/Proposed Procedure Planned Operative Procedure(s): COLONOSCOPY Anesthesia History Anesthesia History - capacity planning analyst: Anesthesia History - capacity planning analyst Hx Hospitalization Yes 09/07/25 11:10 Any Problems With Anesthesia No: has never had anesthesia 09/07/25 11:10 Cholinesterase deficiency No 09/07/25 11:10 You/Your Family Experience No: pt unsure 09/07/25 11:10 fever (hyperthermia) with Relationship Recent Exposure to Contagious No 06/08/25 08:03 Disease Does patient have nerve No 09/07/25 11:10 stimulator Patient instructed to have device shut off --Does patient have Pacemaker or ICD? When Was Last Pacemaker Check QUESTION #4 FULL TEXT: You/Your Family Experience fever (hyperthermia) with Anesthesia Last Oral Intake Last Oral intake: Last Oral Intake NPO since Meds taken in AM with sips of water? Meds patient instructed to take am of surgery PONV PONV - capacity planning analyst: PONV - capacity planning analyst Female No 09/07/25 11:10 HX of Motion Sickness No 09/07/25 11:10 HX of N/V After Surgery No 09/07/25 11:10 Non-Smoker Yes 09/07/25 11:10 Duration of Surgery greater No 09/07/25 11:10 than 60 minutes Number of Risk Factors 1 09/07/25 11:10 PONV Score Low Risk 09/07/25 11:10 Height & Weight Height & Weight: Anesthesia: Height & Weight Height 6 ft 08/25/25 13:12 Respiratory Assessment Respiratory Assessment - capacity planning analyst: Respiratory Tract Infection Hx - capacity planning analyst Hx Respiratory Tract Infection No 09/07/25 11:10 STOP Sleep Apnea STOP Sleep Apnea - capacity planning analyst: STOP Sleep Apnea - capacity planning analyst Hx Hypertension Yes: CONTROLLED ON MED 09/07/25 11:10 Hx Sleep Apnea Yes 09/07/25 11:10 CPAP No 09/07/25 11:10 BIPAP No 09/07/25 11:10 Do you snore loudly (louder than talking or can be heard Do you often feel tired/ fatigued/ sleepy during daytime? Has anyone observed you stop breathing during sleep? STOP Results Positive 09/07/25 11:10 QUESTION #5 FULL TEXT : Do you snore loudly (louder than talking or can be heard through closed doors)? 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 Specify any problems Hx of Preganancy in last 3 N/A 09/07/25 11:10 Months Nurse Filling Out Transfusion VCHRISTIN 09/07/25 11:10 & Questions: Date: 09/07/25 09/07/25 11:10 Time: 11:11 09/07/25 11:10 Patient unable to answer at this time (ie. confused, unrespo /Reproduction History /Reproductive History - capacity planning analyst: /Reproductive Hx- capacity planning analyst Hx Now No 09/07/25 11:10 Gestational Age (in weeks): EDC: Hx Hx Para Hx Section SAB No 09/07/25 11:10 Does the father of the baby or his family experience fever w Father of the baby Malignant Hypertension history comment [facility] Medical History Headache Bipolar disorder Excessive bleeding History of diverticulitis History of IBS Gastric reflux Former smoker Arthritis Migraine headache Non-smoker History of echocardiogram History of stress test History of CHF (congestive heart failure) Schizophrenia Diabetes Hypertension Home Medications ?Medication ?Instructions ?Recorded ?Last Taken ?Type metformin 500 mg tablet 1,000 tab PO BID 03/11/22 History amlodipine 5 mg tablet 10 mg PO DAILY 12/16/2405/23 History pantoprazole 40 mg tablet,delayed 40 mg PO BID #60 tab s 03/17/25 06/07/25 Rx release meloxicam 15 mg tablet 15 mg PO DAILY PRN pain #20 tabs 04/25/25 06/07/25 Rx sucralfate 1 gram tablet (Carafate) 1 g PO Q6H PRN aci d reflux 06/02/25 06/07/25 History dicyclomine 20 mg tablet 20 mg PO Q6H PRN PRN abdomin al 07/31/25 Unknown Rx discomfort #20 tabs plecanatide 3 mg tablet (Trulance) 3 mg PO DAILY 08/23 Unknown History atenolol 100 mg tablet 100 mg PO QDAY #30 tabs 01/14 Unknown Rx blood pressure monitor #1 ea 08/25/25 Unknown Rx blood sugar diagnostic (True #100 ea 08/25/25 Unknown Rx Metrix Glucose Test Strip) blood-glucose meter (Advanced #1 ea 08/25/25 Unknown R x All-in-One Glucose Meter kit) lancets (Lancets,Ultra Thin) #100 ea 08/25/25 Unknown Rx pioglitazone 45 mg tablet 45 mg PO QDAY #30 tabs 08/25 Unknown Rx valsartan 320 mg tablet 320 mg PO DAILY #30 tabs 01/14 Unknown Rx Allergy/AdvReac Type Severity Reaction Status Date / Time No Known Allergies Allergy Verified 09/07/25 11:03 Family History (Updated 08/25/25 @ 13:17 by Jocelyn Carter LPN) Brother CAD (coronary artery disease) Heart disease Father Heart disease Hyperlipidemia Surgical History (Updated 09/07/25 @ 11:10 by Milady Amado) History of esophagogastroduodenoscopy (EGD) History of laparoscopic cholecystectomy History of cholecystectomy Social History (Updated 08/25/25 @ 13:18 by Jocelyn Carter LPN) household members: spouse current occupational status: disabled current occupational exposures/hazards: No Smoking Status: Former smoker alcohol intake: never substance use type: does not use what type of physical activity do you participate in: walking seatbelt use: always do you feel safe at home: Yes Audit: Pertinent Findings Pertinent Findings EKG Perinent findings: 01/31/2021. Normal sinus rhythm. Stress test pertinent findings: 02/01/2021. EF of 65%. Negative myocardial perfusion study for reversible myocardial ischemia. Echo (EF%) pertinent findings: 01/31/2021. EF of 65%. No aortic stenosis. Additional pertinent findings: 08/26/2025. White blood cell count is 13.4. It has been elevated for the past 3 months. Potassium is 3.0. This has been decreased for the past 4 months. Both of chronic conditions. Recommendation Anesthesia Recommendation Anesthesia recommendation: OPTIMIZED for anesthesia
[2025-09-08] VITALS (9 sets, daily range): BP systolic 109–133; BP diastolic 74–92; PULSE 63–74; RESP 16–20; TEMP 36.1–36.4; O2SAT 97–100; BMI 28.0
[2025-09-08] MEDS: Lactated Ringers 1,000 ML 15 ML IV (09:44)
--- NOTE | 2025-09-08 09:50 | PCM.PRE.AN2 ---
ASA Classification* ASA Classification ASA Classification: 2 Assessment & Plan Anesthesia* Anesthesia Assessment Anesthesia Assessment: Discussed sedation and/or anesthesia options, risks, benefits, and alternatives with patient/parents/legal guardian/POA. Questions invited. The patient/parents/legal guardian/POA seems to understand and agrees to proceed with anesthesia plan. Reviewed the physical assessment, medical history, allergy history and patient home medications list prior to surgery/procedure/anesthetic and documented any changes. Performed airway and anesthesia risk assessments. Anesthesia Type Anesthesia Type: MAC History Source History Obtained from:: Patient and Chart Anesthesia Focused Assessment* Temperature: 97.6 F Pulse Rate: 66 Blood Pressure: 133/92 Respiratory Rate: 20 Pulse Ox: 100 Oxygen Delivery Method: Room Air Airway Assessment Mouth opens: >3 cm Mallampati Score: II Teeth Condition: Intact Neck Range of motion (ROM): Full ROM Labs Anesthesia Preop lab: CBC WBC, (4.4-11.0) 13.4 K/mm3 H 08/26/25, 13:18 RBC, (4.6-6.2) 4.92 M/mm3 08/26/25, 13:18 Hgb, (13.0-16.5) 15.1 g/dL 08/26/25, 13:18 Hct, (40-54) 43.5 % 08/26/25, 13:18 Plt Count, (150-450) 324 K/mm3 08/26/25, 13:18 CHEMISTRY Potassium, (3.3-5.1) 3.0 mmol/L L 08/26/25, 13:18 Sodium, (133-145) 137 mmol/L 08/26/25, 13:18 Magnesium, (1.6-2.6) 2.1 mg/dL 02/01/21, 06:15 BUN, (4-19) 9 mg/dL 08/26/25, 13:18 Creatinine, (0.70-1.20) 0.56 mg/dL L 08/26/25, 13:18 Glucose, (70-99) 238 mg/dL H 08/26/25, 13:18 POC Glucose, (74-106) 266 mg/dL H 06/08/25, 08:08 TSH, (0.300-4.200) 0.818 uIU/mL 04/29/25, 09:09 COAG PT, (11.7-14.9) 14.5 SECONDS 04/29/25, 09:09 Pre-Assessment Diagnosis/Proposed Procedure Planned Operative Procedure(s): COLONOSCOPY Anesthesia History Anesthesia History - education reviewer: Anesthesia History - education reviewer Hx Hospitalization Yes 09/07/25 11:10 Any Problems With Anesthesia No: has never had anesthesia 09/07/25 11:10 Cholinesterase deficiency No 09/07/25 11:10 You/Your Family Experience No: pt unsure 09/07/25 11:10 fever (hyperthermia) with Relationship Recent Exposure to Contagious No 09/08/25 09:34 Disease Does patient have nerve No 09/07/25 11:10 stimulator Patient instructed to have device shut off --Does patient have Pacemaker No 09/08/25 09:34 or ICD? When Was Last Pacemaker Check QUESTION #4 FULL TEXT: You/Your Family Experience fever (hyperthermia) with Anesthesia Last Oral Intake Last Oral intake: Last Oral Intake NPO since 08:00 09/08/25 09:34 Meds taken in AM with sips of No 09/08/25 09:34 water? Meds patient instructed to take am of surgery PONV PONV - education reviewer: PONV - education reviewer Female No 09/07/25 11:10 HX of Motion Sickness No 09/07/25 11:10 HX of N/V After Surgery No 09/07/25 11:10 Non-Smoker Yes 09/07/25 11:10 Duration of Surgery greater No 09/07/25 11:10 than 60 minutes Number of Risk Factors 1 09/07/25 11:10 PONV Score Low Risk 09/07/25 11:10 Height & Weight Height & Weight: Anesthesia: Height & Weight Height 6 ft 09/08/25 09:34 Weight: 94 kg 09/08/25 09:34 Body Mass Index (BMI) 28.0 09/08/25 09:34 Respiratory Assessment Respiratory Assessment - education reviewer: Respiratory Tract Infection Hx - education reviewer Hx Respiratory Tract Infection No 09/07/25 11:10 STOP Sleep Apnea STOP Sleep Apnea - education reviewer: STOP Sleep Apnea - education reviewer Hx Hypertension Yes: CONTROLLED ON MED 09/07/25 11:10 Hx Sleep Apnea Yes 09/07/25 11:10 CPAP No 09/07/25 11:10 BIPAP No 09/07/25 11:10 Do you snore loudly (louder than talking or can be heard Do you often feel tired/ fatigued/ sleepy during daytime? Has anyone observed you stop breathing during sleep? STOP Results Positive 09/07/25 11:10 QUESTION #5 FULL TEXT : Do you snore loudly (louder than talking or can be heard through closed doors)? 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 Specify any problems Hx of Preganancy in last 3 N/A 09/07/25 11:10 Months Nurse Filling Out Transfusion VCHRISTIN 09/07/25 11:10 & Questions: Date: 09/07/25 09/07/25 11:10 Time: 11:11 09/07/25 11:10 Patient unable to answer at this time (ie. confused, unrespo /Reproduction History /Reproductive History - education reviewer: /Reproductive Hx- education reviewer Hx Now No 09/07/25 11:10 Gestational Age (in weeks): EDC: Hx Hx Para Hx Section SAB No 09/07/25 11:10 Does the father of the baby or his family experience fever w Father of the baby Malignant Hypertension history comment Active Medications Active Medications: Current Medications Generic Name Dose Route Start Last Admin Trade Name Freq PRN Reason Stop Dose Admin Lactated Ringer's 1,000 mls @ 15 mls/hr 09/08/25 09:15 09/08/25 09:44 IV 15 mls/hr .Q48H CHARLES Administration PFSH Medical History Headache Bipolar disorder Excessive bleeding History of diverticulitis History of IBS Gastric reflux Former smoker Arthritis Migraine headache Non-smoker History of echocardiogram History of stress test History of CHF (congestive heart failure) Schizophrenia Diabetes Hypertension Home Medications ?Medication ?Instructions ?Recorded ?Last Taken ?Type metformin 500 mg tablet 1,000 tab PO BID 03/11/22 09/07/25 History amlodipine 5 mg tablet 10 mg PO DAILY 12/16/24 09/07/25 History pantoprazole 40 mg tablet,delayed 40 mg PO BID #60 tabs 03/17/25 09/07/25 Rx release meloxicam 15 mg tablet 15 mg PO DAILY PRN pain #20 tabs 04/25/25 09/07/25 Rx sucralfate 1 gram tablet (Carafate) 1 g PO Q6H PRN acid reflux 06/02/25 09/07/25 History dicyclomine 20 mg tablet 20 mg PO Q6H PRN PRN abdominal 07/31/25 09/07/25 Rx discomfort #20 tabs plecanatide 3 mg tablet (Trulance) 3 mg PO DAILY 08/23/25 09/07/25 History atenolol 100 mg tablet 100 mg PO QDAY #30 tabs 08/25/25 09/07/25 Rx blood pressure monitor #1 ea 08/25/25 Unknown Rx blood sugar diagnostic (True #100 ea 08/25/25 Unknown Rx Metrix Glucose Test Strip) blood-glucose meter (Advanced #1 ea 08/25/25 Unknown Rx All-in-One Glucose Meter kit) lancets (Lancets,Ultra Thin) #100 ea 08/25/25 Unknown Rx pioglitazone 45 mg tablet 45 mg PO QDAY #30 tabs 08/25/25 09/07/25 Rx valsartan 320 mg tablet 320 mg PO DAILY #30 tabs 08/25/25 09/07/25 Rx Allergy/AdvReac Type Severity Reaction Status Date / Time No Known Allergies Allergy Verified 09/08/25 09:30 Family History Brother CAD (coronary artery disease) Heart disease Father Heart disease Hyperlipidemia Surgical History History of esophagogastroduodenoscopy (EGD) History of laparoscopic cholecystectomy History of cholecystectomy Social History household members: spouse current occupational status: disabled current occupational exposures/hazards: No Smoking Status: Former smoker alcohol intake: never substance use type: does not use what type of physical activity do you participate in: walking seatbelt use: always do you feel safe at home: Yes Review of Systems (Anesthesia) ROS Narrative System reviewed and no additional complaints, except as documented.
--- NOTE | 2025-09-08 10:00 | COLBX_PTH ---
PATIENT: ANASTACIO MURILLO LOC: EN U#:[id number] AGE/SX: 44/M ROOM: RE09/08/[address]: Dr. Giovanny Sharma DO : 1980 BED: DIS: 09/08/2025 SPEC #: [id number] RECD: 09/08/25 12:10 STATUS: [employer] #: [id number] LINDA: 09/08/25 10:[address]: Giovanny Sharma DEPT: SURGICAL PATHOLOGY RECD BY: Mikel Gay ENTERED: 09/08/25 14:17 SP TYPE: COLON BX OT DR: Dr. Susan Wahl MD Tissues: A - Cecum, NOS B - Sigmoid colon biopsy Procedures: Surgery Specimen Level IV HEADER OPERATION: Colonoscopy, polypectomy, biopsy PRE-OP DIAGNOSIS: Encounter for screening colonoscopy TISSUE SUBMITTED: A- Cecal polyp, B- Sigmoid and rectum biopsy MICROSCOPIC DIAGNOSIS A. Colon, cecum, biopsy: Vegetable matter, no tissue seen. B. Colon, sigmoid / rectum, biopsy: Focal active colitis. See note. Note: Focal mild acute inflammation is noted without features of chronicity. This is a nonspecific finding which may result from bowel prep artifact, mild infection, medication injury (eg: NSAIDs) and ischemia. Recommend correlation with clinical and endoscopic findings. MICROSCOPIC DESCRIPTION Slides are reviewed. GROSS DESCRIPTION A. Received in fixative is one container labeled with the patient's name and designated Cecal polyp. The specimen consists of one irregular fragment of muñoz tissue that measures 0.5 cm, admixed with flocculent material. The specimen is totally submitted in one cassette. B. Received in fixative is one container labeled with the patient's name and designated Sigmoid and rectum biopsy. The specimen consists of three irregular fragments of muñoz tissue that measure <0.1 to 0.3cm. Smallest fragment may not survive processing. The specimen is totally submitted in one cassette. TX 09/08/2025 CPT:19424q2
--- NOTE | 2025-09-08 10:01 | PCM.HP.STD ---
HPI - General General Date of Admission: 09/08/25 Date of Service: 09/08/25 Chief Complaint: abdominal pain and poor prep on colonoscopy HPI Narrative ANASTACIO MURILLO, is a 44 M who presents [Chief Complaint: abd pain Establishment 12/16/2024 for abdominal pain and vomiting. Last office visit 04/19/2025 with Malini Mckeon NP. Patient with ED evaluation on 03/30/[address] with IV contrast performed revealing extensive diverticulosis, mildly thickened urinary gallbladder and sclerotic lesions within the right iliac body, bilateral acetabulum and bilateral femoral heads. Discharged with Augmentin 875 twice daily and hydrocodone. Patient seen by oncology 04/05/2025 for sclerotic lesions noted on CT abdomen pelvis and patient is scheduled for CT chest, PET scan and PSA normal. Patient continues to have constipation despite increasing dose of Linzess to 290 mcg daily patient started on Amitiza 24 mcg twice daily and scheduled for colonoscopy Colonoscopy 06/08/2025 - Preparation of the colon was fair. - Diverticulosis in the recto-sigmoid colon and in the sigmoid colon. - Stool in the rectum, in the recto-sigmoid colon, in the sigmoid colon, in the descending colon, at the splenic flexure and in the ascending colon. - No specimens collected. EGD 06/08/2025 - Normal esophagus. - Z-line irregular, 40 cm from the incisors. Biopsied. - Chronic gastritis. Biopsied. - No gross lesions in the entire examined duodenum. pathology: Gastric body with chronic inflammation. Distal esophagus squamous mucosa with reactive changes and columnar mucosa negative for goblet cell metaplasia OV 06/23/25 patient having lower abdominal/pelvic pain. Patient feels a mass there when he touches it. Pain is not associated with oral intake. He does feel the pain gets better with the bowel movements. IcyHot and applying heat to the area helps as well. Patient denies any epigastric pain or reflux symptoms. Patient having a lot of back pain and was told he has bad arthritis. Recommend starting Trulance and discontinuing lubiprostone [facility] 07/31/[address] showing gastritis and possible colitis OV 08/23/2025 patient continues to have lower abdominal/pelvic pain. Pain has been progressively worsening since his ER visit in July. Pain is constant and sharp. At this time he rates it as a 10 out of 10. There are no exacerbating or alleviating factors. Some improvement with bowel movements. Patient having bowel movements every few days. Dicyclomine does not help. He endorses a normal appetite and no unintentional weight loss. CBC W/Diff, Automated Today 789.00 - Abdominal pain, unspecified site Comprehensive Metabolic Profil Today 789.00 - Abdominal pain, unspecified site Lipase Today 789.00 - Abdominal pain, unspecified site Abdomen/Pelvis WITH Contrast Today R10.2 - Pelvic and perineal pain, R10.9 - Unspecified abdominal pain ] PFSH Medical History Headache Bipolar disorder Excessive bleeding History of diverticulitis History of IBS Gastric reflux Former smoker Arthritis Migraine headache Non-smoker History of echocardiogram History of stress test History of CHF (congestive heart failure) Schizophrenia Diabetes Hypertension Home Medications ?Medication ?Instructions ?Recorded ?Last Taken ?Type metformin 500 mg tablet 1,000 tab PO BID 03/11/22 09/07/25 History amlodipine 5 mg tablet 10 mg PO DAILY 12/16/24 09/07/25 History pantoprazole 40 mg tablet,delayed 40 mg PO BID #60 tabs 03/17/25 09/07/25 Rx release meloxicam 15 mg tablet 15 mg PO DAILY PRN pain #20 tabs 04/25/25 09/07/25 Rx sucralfate 1 gram tablet (Carafate) 1 g PO Q6H PRN acid reflux 06/02/25 09/07/25 History dicyclomine 20 mg tablet 20 mg PO Q6H PRN PRN abdominal 07/31/25 09/07/25 Rx discomfort #20 tabs plecanatide 3 mg tablet (Trulance) 3 mg PO DAILY 08/23/25 09/07/25 History atenolol 100 mg tablet 100 mg PO QDAY #30 tabs 08/25/25 09/07/25 Rx blood pressure monitor #1 ea 08/25/25 Unknown Rx blood sugar diagnostic (True #100 ea 08/25/25 Unknown Rx Metrix Glucose Test Strip) blood-glucose meter (Advanced #1 ea 08/25/25 Unknown Rx All-in-One Glucose Meter kit) lancets (Lancets,Ultra Thin) #100 ea 08/25/25 Unknown Rx pioglitazone 45 mg tablet 45 mg PO QDAY #30 tabs 08/25/25 09/07/25 Rx valsartan 320 mg tablet 320 mg PO DAILY #30 tabs 08/25/25 09/07/25 Rx Allergy/AdvReac Type Severity Reaction Status Date / Time No Known Allergies Allergy Verified 09/08/25 09:30 Family History Brother CAD (coronary artery disease) Heart disease Father Heart disease Hyperlipidemia Surgical History History of esophagogastroduodenoscopy (EGD) History of laparoscopic cholecystectomy History of cholecystectomy Social History household members: spouse current occupational status: disabled current occupational exposures/hazards: No Smoking Status: Former smoker alcohol intake: never substance use type: does not use what type of physical activity do you participate in: walking seatbelt use: always do you feel safe at home: Yes ROS Constitutional Constitutional: Denies fatigue, fever(s), poor appetite, weight gain or weight loss Gastrointestinal Gastrointestinal: Denies belching, bloating, change in bowel habits, change in stool character, chewing difficulty, coffee ground emesis, constipation, cramping, diarrhea, dyspepsia, dysphagia, early satiety, excessive flatus, fecal incontinence, heartburn, hematemesis, hematochezia, hemorrhoids, loose stools, melena, nausea, odynophagia, rectal bleeding, tenesmus, vomiting or weight changes Patient's Goals Of Care . What would you like to achieve or improve as a result of your hospital stay?: nothing Vital Signs Vital Signs Vital Signs: 09/08/25 09:34 09/08/25 09:34 09/08/25 09:38 Temperature 97.6 F L Temperature Source Temporal Pulse Rate 66 Respiratory Rate 20 H Respiratory Pattern Normal Blood Pressure 133/92 H Blood Pressure Mean 105 Blood Pressure Source Monitor Blood Pressure Position Semi-Fowlers Blood Pressure Location Left Arm Baseline BP 133/92 Pulse Ox 100 Oxygen Delivery Method Room Air 09/08/25 09:52 Temperature 97.6 F L Temperature Source Pulse Rate 66 Respiratory Rate 20 H Respiratory Pattern Blood Pressure 133/92 H Blood Pressure Mean Blood Pressure Source Blood Pressure Position Blood Pressure Location Baseline BP Pulse Ox 100 Oxygen Delivery Method Room Air Weight Weight: 207 lb 3.752 oz Body Mass Index (BMI) 28.0 Physical Exam Const alert, oriented x3, no apparent distress and healthy appearing General Appearance: cooperative GI normal to inspection, nondistended, normoactive bowel sounds, soft to palpation, non-tender and non-distended Percussion: normal to percussion Rectal Exam: deferred Assessment & Plan Assessment/Plan (1) Periumbilical abdominal pain: (2) Weight loss: PLAN: Assessment and Plan Assessment and Plan (1) Abdominal pain: Status: Inactive Plan: Anastacio is a 44-year-old male patient with past medical history of diabetes, schizophrenia, hypertension, fatty liver, constipation and gastritis here today for follow-up. Patient seen in the ED in July 2025 due to lower abdominal pain. Workup was consistent with gastritis and possible colitis which was seen on CT abdomen pelvis. Patient was given Bentyl and Zofran and discharged. Since his ED visit he has had progressively worsening lower abdominal pain. He denies alleviating or exacerbating factors. He endorses pain is currently constant, sharp and 10 out of 10. With his report of 10 out of 10 abdominal pain and findings of possible colitis, I have recommended stat CT abdomen pelvis with oral contrast. I did review the risks of repeated CT scan and radiation exposure with patient. He was agreeable to proceed. I have also ordered CBC, CMP and lipase. Due to findings of possible colitis, I recommend patient undergo repeat colonoscopy. He did have a colonoscopy in May 2025 that was with poor prep and with recommendation to repeat in 1 year but given these findings I think he should have repeat within the month. Pending CT results will consider further workup or treatment. - CT abdomen pelvis - CBC, CMP and lipase - Colonoscopy - Consider further workup and/or treatment Note: Portions of this note may have been selectively carried forward from previous documentation to ensure continuity and accuracy of the clinical record. All imported information has been reviewed and updated as necessary to reflect the current patient status, findings, and clinical decision-making for this encounter. [employer] speech recognition cattle care worker software was used to create portions of this document. Sound alike and misspelled words, as well as other cattle care worker errors may be contained in the documentation. Orders: Orders
--- NOTE | 2025-09-08 10:53 | OP.PROVAT_ITS ---
09/08/2025 No Primary Care Physician Re : Colonoscopy procedure for Kristopher Posey Dear Care Physician This procedure was performed on August. My impressions and recommendations are as follows: Impressions : - Preparation of the colon was fair. - One 7 mm polyp in the cecum, removed with a hot snare. Resected and retrieved. Clip was placed. 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 - Stool in the recto-sigmoid colon, in the sigmoid colon, at the splenic flexure, in the transverse colon, in the ascending colon and in the cecum. - Congested mucosa in the recto-sigmoid colon. Biopsied. Recommendations : - Discharge patient to home. - Resume previous diet. - Continue present medications. - Await pathology results. - Repeat colonoscopy in 1 year for surveillance. My findings are described in the full procedure note, which is enclosed. If I can be of further assistance, please feel free to contact me at . Sincerely, Giovanny Sharma, 09/08/2025 10:53:18 AM This report has been signed electronically.
--- NOTE | 2025-09-08 10:53 | OP.COLON_ITS ---
Patient Name: Kristopher Posey Procedure Date: 09/08/2025 10:04 AM Date of : 1980 Age: 44 Procedure: Colonoscopy Indications: Abdominal pain in the left lower quadrant, Abdominal pain in the right lower quadrant Providers: Giovanny Sharma DO Medicines: Monitored Anesthesia Care Patient Profile: This is a 44 year old male. Refer to note in patient chart for documentation of history and physical. Last Colonoscopy: within the past year. Complications: No immediate complications. Procedure: Pre-Anesthesia Assessment: - Prior to the procedure, a History and Physical was performed, and patient medications and allergies were reviewed. The patient is competent. The risks and benefits of the procedure and the sedation options and risks were discussed with the patient. All questions were answered and informed consent was obtained. Patient identification and proposed procedure were verified by the physician in the pre-procedure area. Mental Status Examination: alert and oriented. Airway Examination: normal oropharyngeal airway and neck mobility. Respiratory Examination: clear to auscultation. CV Examination: normal. Prophylactic Antibiotics: The patient does not require prophylactic antibiotics. Prior Anticoagulants: The patient has taken no anticoagulant or antiplatelet agents except for NSAID medication. ASA Grade Assessment: II - A patient with mild systemic disease. After reviewing the risks and benefits, the patient was deemed in satisfactory condition to undergo the procedure. The anesthesia plan was to use monitored anesthesia care (MAC). Immediately prior to administration of medications, the patient was re-assessed for adequacy to receive sedatives. The heart rate, respiratory rate, oxygen saturations, blood pressure, adequacy of pulmonary ventilation, and response to care were monitored throughout the procedure. The physical status of the patient was re-assessed after the procedure. After I obtained informed consent, the scope was passed under direct vision. Throughout the procedure, the patient's blood pressure, pulse, and oxygen saturations were monitored continuously. The Colonoscope was introduced through the anus and advanced to the cecum, identified by appendiceal orifice and ileocecal valve. The colonoscopy was performed without difficulty. The patient tolerated the procedure well. The quality of the bowel preparation was fair. Scope In: 10:21:09 AM Scope Withdrawal Time 0 hours 14 minutes 29 seconds Scope Out: 10:40:49 AM Total Procedure Duration Time 0 hours 19 minutes 40 seconds Findings: The perianal and digital rectal examinations were normal. A 7 mm polyp was found in the cecum. The polyp was sessile. The polyp was removed with a hot snare. Resection and retrieval were complete. Verification of patient identification for the specimen was done. To prevent bleeding post-intervention, one hemostatic clip was successfully placed. 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 There was no bleeding at the end of the procedure. Stool was found in the recto-sigmoid colon, in the sigmoid colon, at the splenic flexure, in the transverse colon, in the ascending colon and in the cecum. An area of mildly congested mucosa was found in the recto-sigmoid colon. Biopsies were taken with a cold forceps for histology. Verification of patient identification for the specimen was done. Estimated blood loss was minimal. Non-bleeding internal hemorrhoids were found during retroflexion. The hemorrhoids were Grade II (internal hemorrhoids that prolapse but reduce spontaneously). Impression: - Preparation of the colon was fair. - One 7 mm polyp in the cecum, removed with a hot snare. Resected and retrieved. Clip was placed. 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 - Stool in the recto-sigmoid colon, in the sigmoid colon, at the splenic flexure, in the transverse colon, in the ascending colon and in the cecum. - Congested mucosa in the recto-sigmoid colon. Biopsied. Recommendation: - Discharge patient to home. - Resume previous diet. - Continue present medications. - Await pathology results. - Repeat colonoscopy in 1 year for surveillance. Procedure Code(s): --- Professional --- 45440, Colonoscopy, flexible; with removal of tumor(s), polyp(s), or other lesion(s) by snare technique 50299, 59, Colonoscopy, flexible; with biopsy, single or multiple CPT copyright 2021 [employer]. All rights reserved. The codes documented in this report are preliminary and upon hairspring vibrator review may be revised to meet current compliance requirements. Giovanny Sharma DO 09/08/2025 10:53:18 AM This report has been signed electronically. Number of Addenda: 0 Note Initiated On: 09/08/2025 10:04 AM
--- NOTE | 2025-09-08 10:54 | PCM.POST.ANE ---
Anesthesia: Postop Eval I Current Vital Signs Temperature: 97 F Pulse Rate: 67 Blood Pressure: 109/74 Respiratory Rate: 16 Pulse Ox: 97 Oxygen Delivery Method: Room Air Assessment Airway patent: Yes Spontaneous unlabored respirations: Yes Mental status: Asleep nausea: No Vomiting: No Anesthesia Complication: No Fluid Hydration Crystalloid volume administer (ml): 500 Total IV fluid infused: 500 Progress Note Anesthesia document: Postop Eval 1 completed: Yes
--- NOTE | 2025-09-08 12:49 | PCM.POSTANE2 ---
Anesthesia Postop Eval I Sum Postop Eval Completion status Anesthesia document: Postop Eval 1 completed: Yes Anesthesia Postop Eval I Summary Anesthesia Postop Eval I Summary: Anesthesia Postop Eval I: Assessment Summary Airway patent Yes 09/08/25 10:55 [email or web address] Spontaneous unlabored Yes 09/08/25 10:55 [email or web address] respirations Mental status Asleep 09/08/25 10:55 [email or web address] nausea No 09/08/25 10:55 [email or web address] Vomiting No 09/08/25 10:55 [email or web address] Anesthesia Postop Eval I: Fluid Summary Crystalloid volume administer 500 09/08/25 10:55 [email or web address] (ml) Colloids volume administered ( ml) Blood Product volume administered (ml) Total IV fluid infused 500 09/08/25 10:55 [email or web address] Anesthesia Postop Eval I: Summary Notes Anesthesia Complication No 09/08/25 10:55 [email or web address] Anesthesia Complication Comment: Post-operative progress note Anesthesia: Postop Eval II Evaluation Mental status: Awake and Calm Pain Level: 1 nausea: No Vomiting: No Complications Anesthesia Complication: No
== END 2025-09-08 11:55 | disposition home or self-care (01) ==
LOC: EN 09:06 → AC 09:06
PROVIDERS: PCP Internal Medicine; Referring Provider Internal Medicine; Visit Provider Internal Medicine Gastroenterology
PROC: 0DJD8ZZ Inspection of Lower Intestinal Tract, Via Natural or Artificial Opening Endoscopic (ICD-10-PCS; CPT 45378; principal; 2025-09-08 09:55)
DX: K52.9 Noninfective gastroenteritis and colitis, unspecified (principal); I11.0 Hypertensive heart disease with heart failure; I50.9 Heart failure, unspecified; E11.9 Type 2 diabetes mellitus without complications; Z87.891 Personal history of nicotine dependence; R10.33 Periumbilical pain; Z79.84 Long term (current) use of oral hypoglycemic drugs; K64.1 Second degree hemorrhoids; Z79.899 Other long term (current) drug therapy; R63.4 Abnormal weight loss; K21.9 Gastro-esophageal reflux disease without esophagitis
CPT/HCPCS: 45380; 45385; 82962; 88305; J2405